=== PATIENT | female | born 1960 | race Caucasian/White ===

== ENCOUNTER 2016-06-27 18:24 | Inpatient (IN) ==
[2016-06-27 19:48] LABS: Basophils % 0.5 %; Eosinophils # 0.2 K/mcL (0.0-0.6); Eosinophils % 1.9 %; Hemoglobin 10.2 g/dL (11.5-15.4); Immature Granulocytes % 0.4 % (0-4); Lymphocytes # 1.9 K/mcL (0.6-4.6); Mean Corpuscular HGB Conc 31.9 g/dL (31.6-35.5); Mean Corpuscular Hemoglobin 27.4 pg (28.0-33.3); Mean Platelet Volume 10.8 fL (9.4-12.4); Monocytes # 0.5 K/mcL (0.0-1.3); Monocytes % 5.7 %; Neutrophils # 5.7 K/mcL (1.6-8.9); Platelet Count 213 K/mcL (140-400); Red Blood Count 3.72 M/mcL (3.82-4.97); Red Cell Distribution Width 14.1 % (11.5-14.5); Segmented Neutrophils % 68.5 %
[2016-06-27 20:03] LABS: Calcium 8.6 mg/dL (8.6-10.8); Potassium 4.7 mEq/L (3.5-4.5)
--- NOTE | 2016-06-27 20:03 | Emergency Department Note ---
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 usp insulin use status Qualified Code(s): E11.65 - Type 2 diabetes mellitus with hyperglycemia Disposition: Admitted As Inpatient General Adult [facility] - General Chief complaint: ED Shortness of Breath/Dyspnea Stated complaint: SOB Time Seen by Provider: 06/27/16 19:48 Source: patient Limitations: no limitations Nursing Notes Reviewed: Yes Vital Signs Reviewed: Yes - History of Present Illness Pain Scale: 8 - Related Data Home Medications Medication Instructions Recorded Confirmed Aspirin Enteric Coated [Aspirin EC] 81 mg PO DAILY 04/08/15 06/27/16 Furosemide [Lasix] 40 mg PO BID 04/08/15 06/27/16 Insulin Glargine,Hum.rec.anlog 40 unit SQ BID 04/08/15 06/27/16 [Lantus Solostar] Multivitamin [Multi-Day Vitamins] 1 tab PO DAILY 04/08/15 06/27/16 Simvastatin [Zocor] 40 mg PO DAILY 04/08/15 06/27/16 Omeprazole [PriLOSEC] 20 mg PO DAILY 12/06/15 06/27/16 Alprazolam [Xanax 0.5 MG Tablet] 0.5 mg PO TID PRN 06/27/16 Atenolol [Atenolol] 100 mg PO DAILY 06/27/16 06/27/16 Collagenase Oint [Santyl] 1 appl TP BID 06/27/16 06/27/16 Hydrochlorothiazide 25 mg PO DAILY 06/27/16 06/27/16 Insulin ASPART [Novolog Flexpen] 20 unit SQ TIDAC 06/27/16 06/27/16 Nystatin [Nyamyc] 1 appl TP BID 06/27/16 06/27/16 Tizanidine HCl 2 mg PO TID PRN 06/27/16 06/27/16 Allergies Allergy/AdvReac Type Severity Reaction Status Date / Time Amoxicillin [From Augmentin] Allergy Itching Verified 06/27/16 18:47 clavulanic acid Allergy Itching Verified 06/27/16 18:47 [From Augmentin] CAROLYN Inhibitors AdvReac Palpitation Verified 06/27/16 18:47 s fenofibrate [From Tricor] AdvReac Drowsy Verified 06/27/16 18:47 vancomycin AdvReac See Verified 06/27/16 22:42 Comments Past Medical History - Past Medical History Medical history: Reports: arthritis, asthma, CHF, CVA, diabetes, hyperlipidemia , hypertension, myocardial infarction, other Surgical history: Reports: , orthopedic, other Psychiatric history: Reports: anxiety, depression 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 SERVICE AIDE history: Reports: no 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 SERVICE AIDE history - Social History Smoking Status: Former smoker Smokeless Tobacco Status: No Alcohol use: Reports: none Drug use: Reports: none Physical Exam - General Limitations: no limitations General appearance: alert, in no apparent distress Course Vital Signs Temperature 98.9 F 06/27/16 18:44 Pulse Rate 80 06/27/16 18:44 Respiratory Rate 18 06/27/16 18:44 Blood Pressure 210/84 06/27/16 18:44 O2 Sat by Pulse Oximetry 97 06/27/16 18:44 Temperature 98.9 F 06/27/16 18:44 Pulse Rate 91 06/27/16 22:26 Respiratory Rate 16 06/27/16 23:11 Blood Pressure 181/78 06/27/16 23:11 O2 Sat by Pulse Oximetry 97 06/27/16 22:26 Oxygen Delivery Oxygen Delivery Room Air Medical Decision Making - MDM Narrative Medical decision making narrative: I examined this patient and my medical decision-making was reviewed with the RIP/MOULD OPERATOR/PA/Advanced Practice Nurse/Resident Physician. I agree with the documented findings, disposition and treatment plan as described except to the extent set forth below. Chest X-Ray 06/27/16 18:47 IMPRESSION: New small bilateral pleural effusions larger on the left. D/ / 06/27/2016 19:08:01 David Catherine MD / [facility] Interpreting Provider: David Catherine MD 2250: Patient's get a small fusion. Her BMP is elevated. She has no elevated troponin. With her diabetes her blood pressure blood sugar and noncompliance think it is best to go and bring her into the hospital as well as with her increasing renal function. She is in agreement with this plan. Spoke with hospitalist accepted. - Lab Data Result diagrams: 06/27/16 19:38 06/27/16 19:38 Lab Results 06/27/16 06/27/16 06/27/16 Range/Units 18:48 19:38 19:38 WBC 8.3 (4.3-11.1) K/mcL RBC 3.72 L (3.82-4.97) M/mcL Hgb 10.2 L (11.5-15.4) g/dL Hct 32.0 L (35.3-44.9) % MCV 86.0 (83.0-100.0) fL MCH 27.4 L (28.0-33.3) pg MCHC 31.9 (31.6-35.5) g/dL RDW 14.1 (11.5-14.5) % Plt Count 213 (140-400) K/mcL MPV 10.8 (9.4-12.4) fL Immature Gran % 0.4 (0-4) % Seg Neutrophils % 68.5 % Lymphocytes % 23.0 % Monocytes % 5.7 % Eosinophils % 1.9 % Basophils % 0.5 % Neutrophils # 5.7 (1.6-8.9) K/mcL Lymphocytes # 1.9 (0.6-4.6) K/mcL Monocytes # 0.5 (0.0-1.3) K/mcL Eosinophils # 0.2 (0.0-0.6) K/mcL Basophils # 0.0 (0.0-0.2) K/mcL Sodium 136 (136-145) mEq/L Potassium 4.7 H (3.5-4.5) mEq/L Chloride 106 (98-109) mEq/L Carbon Dioxide 21 (19-29) mEq/L BUN 25 H (7-20) mg/dL Creatinine 2.77 H (0.57-1.11) mg/dL Est GFR ( Amer) 21 L (> 60) Est GFR (Non-Af Amer) 18 L (> 60) BUN/Creatinine Ratio 9 (6-26) Glucose 344 H (70-99) mg/dL POC Glucose 338 H (58-89) Calculated Osmolality 300 (280-300) Calcium 8.6 (8.6-10.8) mg/dL Troponin I (0-0.03) ng/mL B-Natriuretic Peptide (0-100) pg/mL Urine Color (Yellow) Urine Clarity (Clear) Urine pH (5.0-8.0) pH Units Ur Specific [place] (1.010-1.025) Urine Protein (Neg-Trace) mg/dL Urine Glucose (UA) (Normal) mg/dL Urine Ketones (Negative) mg/dL Urine Blood (Negative) Urine Nitrite (Negative) Urine Bilirubin (Negative) Urine Urobilinogen (Normal) mg/dL Ur Leukocyte Esterase (Negative) Urine Microscopic RBC (0-3) per hpf Urine Microscopic WBC (0-3) per hpf Ur Squamous Epith Cells (None-Few) per lpf Urine Bacteria (None-Few) per hpf Hyaline Casts (None-Few) per lpf Ur Culture Indicated? (NO) 06/27/16 06/27/16 06/27/16 Range/Units 19:38 19:38 22:44 WBC (4.3-11.1) K/mcL RBC (3.82-4.97) M/mcL Hgb (11.5-15.4) g/dL Hct (35.3-44.9) % MCV (83.0-100.0) fL MCH (28.0-33.3) pg MCHC (31.6-35.5) g/dL RDW (11.5-14.5) % Plt Count (140-400) K/mcL MPV (9.4-12.4) fL Immature Gran % (0-4) % Seg Neutrophils % % Lymphocytes % % Monocytes % % Eosinophils % % Basophils % % Neutrophils # (1.6-8.9) K/mcL Lymphocytes # (0.6-4.6) K/mcL Monocytes # (0.0-1.3) K/mcL Eosinophils # (0.0-0.6) K/mcL Basophils # (0.0-0.2) K/mcL Sodium (136-145) mEq/L Potassium (3.5-4.5) mEq/L Chloride (98-109) mEq/L Carbon Dioxide (19-29) mEq/L BUN (7-20) mg/dL Creatinine (0.57-1.11) mg/dL Est GFR ( Amer) (> 60) Est GFR (Non-Af Amer) (> 60) BUN/Creatinine Ratio (6-26) Glucose (70-99) mg/dL POC Glucose (58-89) Calculated Osmolality (280-300) Calcium (8.6-10.8) mg/dL Troponin I 0.02 (0-0.03) ng/mL B-Natriuretic Peptide 1652 H (0-100) pg/mL Urine Color Yellow (Yellow) Urine Clarity Clear (Clear) Urine pH 7.0 (5.0-8.0) pH Units Ur Specific [place] 1.023 (1.010-1.025) Urine Protein >=1000 H (Neg-Trace) mg/dL Urine Glucose (UA) >=1000 H (Normal) mg/dL Urine Ketones Negative (Negative) mg/dL Urine Blood Trace H (Negative) Urine Nitrite Negative (Negative) Urine Bilirubin Negative (Negative) Urine Urobilinogen Normal (Normal) mg/dL Ur Leukocyte Esterase Negative (Negative) Urine Microscopic RBC 5-15 H (0-3) per hpf Urine Microscopic WBC 3-5 H (0-3) per hpf Ur Squamous Epith Cells Many H (None-Few) per lpf Urine Bacteria None Seen (None-Few) per hpf Hyaline Casts None Seen (None-Few) per lpf Ur Culture Indicated? NO (NO)
--- NOTE | 2016-06-27 20:38 | Emergency Department Note ---
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: unspecified long-term insulin use status Qualified Code(s): E11.65 - Type 2 diabetes mellitus with hyperglycemia Disposition: Admitted As Inpatient Referrals: Marcella Sylvester, MACHINE SPECIALIST [Primary Care Provider] - Forms: ED Satisfaction Letter Time of Disposition: 23:13 SOB HPI - General Chief Complaint: ED Shortness of Breath/Dyspnea Stated Complaint: SOB Time Seen by Provider: 06/27/16 19:48 Source: patient Limitations: no limitations Nursing Notes Reviewed: Yes Vital Signs Reviewed: Yes - History of Present Illness Patient is a 56-year-old female with history of CHF, end-stage renal disease stage III, poorly controlled diabetes presents with shortness of breath 3 days. She also complains of new right foot ulcerations on the bottom of her foot 4-5 days. Also has a history of prior foot infections with osteomyelitis in that foot. He sees Dr. Winn but has not informed him of the new foot infection. When asked why she has not gotten if it checked out, patient's reply was that she is stubborn. Patient also stated that she is took herself off her insulin therapy yesterday because she did not want to wait made her feel. - Related Data Home Medications Medication Instructions Recorded Confirmed Aspirin Enteric Coated [Aspirin EC] 81 mg PO DAILY 04/08/15 04/04/16 Furosemide [Lasix] 40 mg PO BID 04/08/15 04/04/16 Insulin Glargine,Hum.rec.anlog 40 unit SQ HS 04/08/15 04/04/16 [Lantus Solostar] Multivitamin [Multi-Day Vitamins] 1 tab PO DAILY 04/08/15 04/04/16 Simvastatin [Zocor] 40 mg PO DAILY 04/08/15 04/04/16 Omeprazole [PriLOSEC] 20 mg PO DAILY 12/06/15 04/04/16 Alprazolam [Xanax 0.5 MG Tablet] 0.5 mg PO TID PRN 06/27/16 Atenolol [Atenolol] 100 mg PO DAILY 06/27/16 06/27/16 Collagenase Oint [Santyl] 1 appl TP BID 06/27/16 06/27/16 Hydrochlorothiazide 25 mg PO DAILY 06/27/16 06/27/16 Insulin ASPART [Novolog Flexpen] 20 unit SQ TIDAC 06/27/16 06/27/16 Nystatin [Nyamyc] 1 appl TP BID 06/27/16 06/27/16 Tizanidine HCl 2 mg PO TID PRN 06/27/16 06/27/16 Allergies Allergy/AdvReac Type Severity Reaction Status Date / Time Amoxicillin [From Augmentin] Allergy Itching Verified 06/27/16 18:47 clavulanic acid Allergy Itching Verified 06/27/16 18:47 [From Augmentin] CAROLYN Inhibitors AdvReac Palpitation Verified 06/27/16 18:47 s fenofibrate [From Tricor] AdvReac Drowsy Verified 06/27/16 18:47 vancomycin AdvReac See Verified 06/27/16 22:42 Comments All systems ED: reviewed and negative except as stated. ENT ED: Reports: congestion Cardiovascular: Denies: chest pain, palpitations Respiratory: Reports: cough, dyspnea Gastrointestinal: Reports: nausea. Denies: abdominal pain Past Medical History - Past Medical History Attestation: Yes The following information was validated with the patient. 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 DEVELOPER history - Social History Smoking Status: Former smoker Smokeless Tobacco Status: No Alcohol use: Reports: none Drug use: Reports: none Physical Exam Vital Signs Temperature 98.9 F 06/27/16 18:44 Pulse Rate 80 06/27/16 18:44 Respiratory Rate 18 06/27/16 18:44 Blood Pressure 210/84 06/27/16 18:44 O2 Sat by Pulse Oximetry 97 06/27/16 18:44 Temperature 98.9 F 06/27/16 18:44 Pulse Rate 78 06/27/16 20:01 Respiratory Rate 18 06/27/16 20:01 Blood Pressure 203/101 06/27/16 20:01 O2 Sat by Pulse Oximetry 98 06/27/16 20:01 Oxygen Delivery Oxygen Delivery Room Air -General Appearance: Patient is a 56-year-old female is alert and oriented 3 and in no acute distress patient does not appear toxic nor does patient appear to have an increased work of breathing -Neurological exam: Cranial nerves II-12 intact, no focal deficits observed - Head Head exam: atraumatic, normocephalic, normal inspection - Eye Eye exam: Present: normal appearance, PERRL, EOMI, negative for scleral icterus negative for conjunctival pallor - ENT ENT exam: normal exam, normal oropharynx, mucous membranes moist - Neck Neck exam: Present: normal inspection, full ROM, trachea midline, negative JVD - Chest Chest inspection: Present: Patient has bilateral equal rise and fall of chest wall. Non-tender to palpation. - Respiratory Respiratory exam: Clear to auscultation bilaterally without wheezes rales or rhonchi Cardiovascular Cardiovascular exam: Present: regular rate, normal rhythm, normal heart sounds, without murmurs rubs or gallops. - Abdominal Exam Abdominal exam: Present: soft, nondistended, Non-Tender light and deep palpation in all quadrants. Bowel sounds normoactive throughout all 4 quadrants. Negative for hyper or hyperresonance. - Extremities Exam Extremities exam: Present: normal inspection, full ROM red erythematous right lower extremity just distal to knee and extending to foot. swollen and warm to palpation compareed to LLE. pulses intact bilat at radials and dorsal pedal. right foot pad 3x1.4, 2.4 x 1.2, 1.3 x2.1 ulceration in stage 2-3. - Back Exam Back exam: Present: normal inspection, full ROM. present: tenderness, CVA tenderness (R), CVA tenderness (L) - Psychiatric Psychiatric exam: Present: normal affect, normal mood - Skin Skin exam: Present: warm, dry, multiple sores on legs and fingers - General Limitations: no limitations General appearance: alert, in no apparent distress Course Course Narrative: seen and examined. labs were already drawn. urinalysis ordered. - Consultations Consultation #1: Dr. Shanks has accepted for admission at 2256hrs Time: 22:56 Vital Signs Temperature 98.9 F 06/27/16 18:44 Pulse Rate 80 06/27/16 18:44 Respiratory Rate 18 06/27/16 18:44 Blood Pressure 210/84 06/27/16 18:44 O2 Sat by Pulse Oximetry 97 06/27/16 18:44 Temperature 98.9 F 06/27/16 18:44 Pulse Rate 91 06/27/16 22:26 Respiratory Rate 18 06/27/16 22:26 Blood Pressure 189/90 06/27/16 22:26 O2 Sat by Pulse Oximetry 97 06/27/16 22:26 Oxygen Delivery Oxygen Delivery Room Air Shortness of Breath/Dyspnea - MDM Narrative Medical decision making narrative: 56-year-old female with history of CHF, end-stage renal disease stage III, poorly controlled diabetes presents with shortness of breath 3 days. Pt is concerning today for acute on chronic CHF exacerbation, pneumonia, PE, aortic aneurysm, Pyelonephritis, UTI, foot infection/inflammation, and diabetic foot ulcers. CBC: shows chronic anemia, BMP: hyperkalemia @ 4.7, Acute worsening of chronically elevated creatinine, and GLU of 344. GFR 18, Trop 0.02 BNP: 1652 Chest X-Ray 06/27/16 18:47 IMPRESSION: New small bilateral pleural effusions larger on the left. D/ / 06/27/2016 19:08:01 David Catherine MD / [email or web address] Interpreting Provider: David Catherine MD Pt will be admitted for acute exacerbation of congestive heart failure in the setting of poorly controlled diabetes with elevated blood sugars 344 and worsening kidney failure and elevation of creatinine and GFR of 18. Patient is administered 40 mg of Lasix and started on insulin subcutaneous sliding scale. Patient given Vicodin for pain and 100 mg of atenolol which she takes home for blood pressure. Dr. Shanks has accepted for admission - Medical Records Medical records reviewed: Yes I reviewed the patient's medical records. - Lab Data Lab results reviewed: Yes I reviewed the patient's lab results. Lab results narrative: Short CBC 06/27/16 Range/Units 19:38 WBC 8.3 (4.3-11.1) K/mcL Hgb 10.2 L (11.5-15.4) g/dL Hct 32.0 L (35.3-44.9) % Plt Count 213 (140-400) K/mcL Neutrophils # 5.7 (1.6-8.9) K/mcL BMP 06/27/16 Range/Units 19:38 Sodium 136 (136-145) mEq/L Potassium 4.7 H (3.5-4.5) mEq/L Chloride 106 (98-109) mEq/L Carbon Dioxide 21 (19-29) mEq/L BUN 25 H (7-20) mg/dL Creatinine 2.77 H (0.57-1.11) mg/dL Glucose 344 H (70-99) mg/dL Calcium 8.6 (8.6-10.8) mg/dL Cardiac Enzymes 06/27/16 Range/Units 19:38 Troponin I 0.02 (0-0.03) ng/mL Urine 06/27/16 Range/Units 22:44 Urine Color Yellow (Yellow) Urine Clarity Clear (Clear) Urine pH 7.0 (5.0-8.0) pH Units Ur Specific [place] 1.023 (1.010-1.025) Urine Protein >=1000 H (Neg-Trace) mg/dL Urine Glucose (UA) >=1000 H (Normal) mg/dL Result diagrams: 06/27/16 19:38 06/27/16 19:38 Lab Results 06/27/16 06/27/16 06/27/16 Range/Units 18:48 19:38 19:38 WBC 8.3 (4.3-11.1) K/mcL RBC 3.72 L (3.82-4.97) M/mcL Hgb 10.2 L (11.5-15.4) g/dL Hct 32.0 L (35.3-44.9) % MCV 86.0 (83.0-100.0) fL MCH 27.4 L (28.0-33.3) pg MCHC 31.9 (31.6-35.5) g/dL RDW 14.1 (11.5-14.5) % Plt Count 213 (140-400) K/mcL MPV 10.8 (9.4-12.4) fL Immature Gran % 0.4 (0-4) % Seg Neutrophils % 68.5 % Lymphocytes % 23.0 % Monocytes % 5.7 % Eosinophils % 1.9 % Basophils % 0.5 % Neutrophils # 5.7 (1.6-8.9) K/mcL Lymphocytes # 1.9 (0.6-4.6) K/mcL Monocytes # 0.5 (0.0-1.3) K/mcL Eosinophils # 0.2 (0.0-0.6) K/mcL Basophils # 0.0 (0.0-0.2) K/mcL Sodium 136 (136-145) mEq/L Potassium 4.7 H (3.5-4.5) mEq/L Chloride 106 (98-109) mEq/L Carbon Dioxide 21 (19-29) mEq/L BUN 25 H (7-20) mg/dL Creatinine 2.77 H (0.57-1.11) mg/dL Est GFR ( Amer) 21 L (> 60) Est GFR (Non-Af Amer) 18 L (> 60) BUN/Creatinine Ratio 9 (6-26) Glucose 344 H (70-99) mg/dL POC Glucose 338 H (58-89) Calculated Osmolality 300 (280-300) Calcium 8.6 (8.6-10.8) mg/dL Troponin I (0-0.03) ng/mL B-Natriuretic Peptide (0-100) pg/mL 06/27/16 06/27/16 Range/Units 19:38 19:38 WBC (4.3-11.1) K/mcL RBC (3.82-4.97) M/mcL Hgb (11.5-15.4) g/dL Hct (35.3-44.9) % MCV (83.0-100.0) fL MCH (28.0-33.3) pg MCHC (31.6-35.5) g/dL RDW (11.5-14.5) % Plt Count (140-400) K/mcL MPV (9.4-12.4) fL Immature Gran % (0-4) % Seg Neutrophils % % Lymphocytes % % Monocytes % % Eosinophils % % Basophils % % Neutrophils # (1.6-8.9) K/mcL Lymphocytes # (0.6-4.6) K/mcL Monocytes # (0.0-1.3) K/mcL Eosinophils # (0.0-0.6) K/mcL Basophils # (0.0-0.2) K/mcL Sodium (136-145) mEq/L Potassium (3.5-4.5) mEq/L Chloride (98-109) mEq/L Carbon Dioxide (19-29) mEq/L BUN (7-20) mg/dL Creatinine (0.57-1.11) mg/dL Est GFR ( Amer) (> 60) Est GFR (Non-Af Amer) (> 60) BUN/Creatinine Ratio (6-26) Glucose (70-99) mg/dL POC Glucose (58-89) Calculated Osmolality (280-300) Calcium (8.6-10.8) mg/dL Troponin I 0.02 (0-0.03) ng/mL B-Natriuretic Peptide 1652 H (0-100) pg/mL - Radiology Data Radiology results reviewed: Yes I reviewed the patient's radiology results. Chest X-Ray 06/27/16 18:47 IMPRESSION: New small bilateral pleural effusions larger on the left. D/ / 06/27/2016 19:08:01 David Catherine MD / [facility] Interpreting Provider: David Catherine MD - EKG Data EKG attestation: Yes I reviewed and interpreted this EKG. EKG results narrative: He taken 06/27/2016 at 1959 hrs. shows a sinus rhythm with a ventricular rate of 79 bpm with no ischemic signs on EKG in any leads no ST elevations or depressions and a leads. EKG is compared to previous EKG dated 08/29/2013 shows a sinus rhythm and looks in equivalent to Today's EKG
[2016-06-27] MEDS ORDERED: Ondansetron ODT 4 MG TAB.RAPDIS SL ONE (20:51)
[2016-06-27] MEDS ORDERED: Ipratropium/Albuterol Neb 3 ML IH ONE (21:19)
[2016-06-27] MEDS ORDERED: *HR* Dextrose 50 % in Water (Syg) 50 ML SYRINGE IVP PRN (22:16)
[2016-06-27] MEDS ORDERED: D5% in Water 1,000 ML IV PRN (22:16)
[2016-06-27] MEDS ORDERED: Dextrose Gel 15 GM PO PRN ×2 (22:16)
[2016-06-27] MEDS ORDERED: Insulin DETEMIR 100 UNIT/ML X5UNITS SQ SCH (22:30)
[2016-06-27] MEDS ORDERED: Furosemide 40 MG/4 ML VIAL IVP ONE (22:30)
[2016-06-27] MEDS ORDERED: *HR* HYDROcodone/Acet 5/325 mg TABLET PO ONE (22:41)
[2016-06-27 22:53] LABS: Bilirubin,Urine Negative (Negative); Blood,Urine Trace (Negative); Clarity,Urine Clear (Clear); Color,Urine Yellow (Yellow); Glucose,Urine (UA) >=1000 mg/dL (Normal); Ketones,Urine Negative (Negative); Leukocyte Esterase,Urine Negative (Negative); Nitrite,Urine Negative (Negative); Protein,Urine >=1000 mg/dL (Neg-Trace); Specific Gravity,Urine 1.023 (1.010-1.025); Urobilinogen,Urine Normal (Normal)
[2016-06-27 22:55] LABS: Bacteria,Urine None Seen per hpf (None-Few); Hyaline Casts,Urine None Seen per lpf (None-Few); Squamous Epithelial Cell,Urine Many per lpf (None-Few)
--- NOTE | 2016-06-28 00:32 | Internal Med History&Physical ---
Date of Encounter: 06/28/16 Time of Encounter: 00:29 Assessment and Plan (1) Acute bronchitis Current visit: Yes Status: Acute I will keep start the patient on azithromycin because she is a smoker. Qualifiers: Qualified Code(s): J20.9 - Acute bronchitis, unspecified (2) Acute exacerbation of congestive heart failure Current visit: Yes Status: Acute This is the main cause for the presentation. I will start the patient only 60 mg intravenous twice a day. On discharge she will need to Lasix dose to be increased. Also encourage compliance to medications as she is noncompliant. will monitor intake and urine output. Serial cardiac markers. Qualifiers: Congestive heart failure type: systolic Qualified Code(s): I50.23 - Acute on chronic systolic (congestive) heart failure (3) Acute on chronic kidney failure Current visit: Yes Status: Acute Close follow-up with Nephrology as an outpatient (4) Hyperglycemia due to type 2 diabetes mellitus Current visit: Yes Status: Acute She is noncompliant with her insulin. Her Hb1AC 2 month ago was 14. Restart insulin in a smaller dose to see response because of worsening kidney functions Qualifiers: Diabetes mellitus terminal operator insulin use: unspecified terminal operator insulin use status Qualified Code(s): E11.65 - Type 2 diabetes mellitus with hyperglycemia (5) Diabetic foot ulcer Current visit: No Status: Acute No active signs of infection. Qualifiers: Diabetes mellitus type: type 2 Laterality: right Qualified Code(s): E11.621 - Type 2 diabetes mellitus with foot ulcer; L97.519 - Non-pressure chronic ulcer of other part of right foot with unspecified severity Internal Medicine - H&P: HPI Chief complaint: SOB History of present illness: Ms. Frederick is a 56 year old female with multiple medical problems including chronic kidney disease stage for that has been worsening over the past year presents to the emergency room today with the main complaining of shortness of breath. For the past 4 days patient has been having progressive shortness of breath associated with orthopnea or just asleep on for pillows and bilateral lower extremity swelling. Patient has gained 20 pounds in the past month. Patient is taking Lasix 40 mg twice a day however she has noticed that her response to diuresis has significantly decreased. Patient is noncompliant with her medications also. Patient mentioned also that she has been having productive cough of whitish sputum with increased sputum production compared to her baseline. She started smoking a year ago 1 pack will blast her 4 days. She has chest pain only when she coughs or takes a deep breath. She denies any known history of coronary artery disease. Past Med Surg Social Fam HX - Past Medical History Medical history: arthritis, asthma, CHF, CVA, diabetes, hyperlipidemia, hypertension, myocardial infarction, other Psychiatric history: anxiety, depression - Past Surgical History Surgical History: , orthopedic, other - Social History Smoking Status: Former smoker Smokeless Tobacco Status: No Alcohol use: none Drug use: none - Family History Mother Living Status: Hx Family Cardiac Disorders: Yes Hx Family Respiratory Disorders: Yes (Asthma) Hx Family Cancer: Yes (Lung Cancer(mother)) Hx Family GI Disorders: No Hx Family Endocrine Disorder: No Hx Family Neuromuscular Disorders: No Hx Family Neurologic Disorders: No Hx Family HEENT Disorders: No Hx Family Autoimmune Disorders: No Father Living Status: Hx Family Cardiac Disorders: Yes Hx Family Respiratory Disorders: Yes (lung cancer) Hx Family Cancer: Yes (lung cancer) Hx Family Endocrine Disorder: Yes (diabetes,) Internal Medicine - H&P: Meds Aspirin Enteric Coated [Aspirin EC] 81 mg PO DAILY 04/08/15 [History] Furosemide [Lasix] 40 mg PO BID 04/08/15 [History] Insulin Glargine,Hum.rec.anlog [Lantus Solostar] 40 unit SQ BID 04/08/15 [ History] Multivitamin [Multi-Day Vitamins] 1 tab PO DAILY 04/08/15 [History] Simvastatin [Zocor] 40 mg PO DAILY 04/08/15 [History] Omeprazole [PriLOSEC] 20 mg PO DAILY 12/06/15 [History] Alprazolam [Xanax 0.5 MG Tablet] 0.5 mg PO TID PRN 06/27/16 [History] Atenolol [Atenolol] 100 mg PO DAILY 06/27/16 [History] Collagenase Oint [Santyl] 1 appl TP BID 06/27/16 [History] Hydrochlorothiazide 25 mg PO DAILY 06/27/16 [History] Insulin ASPART [Novolog Flexpen] 20 unit SQ TIDAC 06/27/16 [History] Nystatin [Nyamyc] 1 appl TP BID 02/08/17 [History] Tizanidine HCl 2 mg PO TID PRN 06/27/16 [History] Allergies Amoxicillin [From Augmentin] Allergy (Verified 06/27/16 18:47) Itching clavulanic acid [From Augmentin] Allergy (Verified 06/27/16 18:47) Itching CAROLYN Inhibitors Adverse Reaction (Verified 06/27/16 18:47) Palpitations fenofibrate [From Tricor] Adverse Reaction (Verified 06/27/16 18:47) Drowsy vancomycin Adverse Reaction (Verified 06/27/16 22:42) See Comments "made my chest feel real funny" All Systems PM: A 10-system review of systems was performed and is negative for pertinent findings except as documented above in the HPI. Review of systems: 10 point review of systems is negative except for HPI - Constitutional Vitals: Temp Pulse Resp BP Pulse Ox 98.9 F 91 16 181/78 97 06/27/16 18:44 06/27/16 22:26 06/27/16 23:11 06/27/16 23:11 06/27/16 22:26 Exam: Gen.: patient is alert oriented not in distress. Cardiac: Normal S1 S2 no additional sounds or murmurs chest: few rales in the bases. No bronchial breathing abdomen soft nontender nondistended normal bowel sounds lower extremity: 2+ swelling neuro no focal deficit Internal Med - H&P Results - Labs CBC & Chem 7: 06/27/16 19:38 06/27/16 19:38
[2016-06-28] MEDS ORDERED: Calcium Gluconate 1,000 MG in D5% in Water 100 ML IVPB ONE (00:39)
[2016-06-28] MEDS ORDERED: Furosemide 100 MG/10 ML VIAL IVP SCH ×2 (02:00→09:11)
[2016-06-28] MEDS ORDERED: Furosemide 60 MG in 0.9 % Sodium Chloride 50 ML IVPB SCH (02:00)
[2016-06-28] MEDS: Azithromycin 500 MG in D5% in Water 250 ML IVPB SCH ×2 (02:32→23:54)
[2016-06-28 04:17] LABS: Basophils % 0.5 %; Eosinophils # 0.2 K/mcL (0.0-0.6); Eosinophils % 2.5 %; Hematocrit 27.7 % (35.3-44.9); Hemoglobin 8.8 g/dL (11.5-15.4); Immature Granulocytes % 0.3 % (0-4); Lymphocytes # 1.5 K/mcL (0.6-4.6); Mean Corpuscular HGB Conc 31.8 g/dL (31.6-35.5); Mean Corpuscular Hemoglobin 27.7 pg (28.0-33.3); Mean Corpuscular Volume 87.1 fL (83.0-100.0); Mean Platelet Volume 11.4 fL (9.4-12.4); Monocytes # 0.4 K/mcL (0.0-1.3); Monocytes % 7.3 %; Neutrophils # 3.9 K/mcL (1.6-8.9); Platelet Count 164 K/mcL (140-400); Red Blood Count 3.18 M/mcL (3.82-4.97); Red Cell Distribution Width 14.1 % (11.5-14.5); Segmented Neutrophils % 64.4 %
[2016-06-28 04:28] LABS: Hemoglobin A1C 12.2 %
[2016-06-28 04:44] LABS: Calcium 8.3 mg/dL (8.6-10.8); Magnesium 1.5 mg/dL (1.6-2.6)
[2016-06-28] MEDS: *HR* Heparin 5,000 UNIT/ML VIAL SQ SCH ×3 (06:21→23:55)
[2016-06-28] MEDS ORDERED: Insulin LISPRO 300 UNITS/3 ML VIAL SQ SCH (08:00)
[2016-06-28] MEDS: Insulin LISPRO 300 UNITS/3 ML VIAL SQ SCH ×7 (08:37→21:30)
[2016-06-28] MEDS: Famotidine 20 MG TABLET PO SCH (08:39)
[2016-06-28] MEDS: Aspirin Enteric Coated 81 MG Tablet PO SCH (08:39)
[2016-06-28] MEDS: Acetaminophen 325 MG TABLET PO PRN (09:13)
--- NOTE | 2016-06-28 13:17 | Nephrology Consult Note ---
Date of Encounter: 06/28/16 Time of Encounter: 13:16 Assessment and Plan (1) Acute kidney injury superimposed on chronic kidney disease Current Visit: Yes Status: Acute Nonoliguric acute kidney injury on chronic kidney disease. It appears that over the past year, patient's GFR has slowly worsened from stage III to now a GFR of 17. This is likely multifactorial in the setting of uncontrolled diabetes, diuretic use, and multiple episodes of antibiotic use for diabetic foot wound. She did present to the emergency department in congestive heart failure exacerbation and received IV Lasix. We will hold on any continue diuretics at this time as the patient's renal function has decreased and her volume status appears slightly improved. We will address daily her need for diuretic. We will continue RENETTA/CKD workup with a renal ultrasound, ANCA, ONEAL, complement, and uric acid. Continue a renal protective strategy and dose any medications accordingly. Her hydrochlorothiazide has been held at this time. (2) Hyperkalemia Current Visit: Yes Status: Acute In the setting of acute kidney injury. Continue to monitor closely. Will add a renal diet. (3) Acute exacerbation of congestive heart failure Current Visit: Yes Status: Acute Patient presented to the emergency department complaining of progressive shortness of breath, orthopnea, and paroxysmal nocturnal dyspnea. Her chest x- ray revealed small bilateral pleural effusions and her BNP was elevated at 1652. I do not see a transthoracic echocardiogram on record, but the admitting hospitalist has ordered one. She was treated with IV diuretics on admission, which have been held at this time due to her rising serum creatinine. We will address on a daily basis her need for diuretics. Qualifiers: Congestive heart failure type: unspecified congestive heart failure type Qualified Code(s): I50.9 - Heart failure, unspecified (4) Uncontrolled diabetes mellitus Current Visit: Yes Status: Chronic Management per primary team. Likely the source of the patient's chronic kidney disease. Hemoglobin A1c 12.2. 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 Frederick is a 56-year-old female with a past medical history of chronic kidney disease stage III, uncontrolled diabetes mellitus, hypertension, congestive heart failure, and diabetic foot wound who presented to the emergency department complaining of progressive shortness of breath over the past several days. She admits to orthopnea, exertional dyspnea, and paroxysmal nocturnal dyspnea. She states she has had a significant weight gain in the past month and feels that her home dose of Lasix is no longer working. Workup in the emergency department revealed a chest x-ray with small bilateral pleural effusions and an elevated BNP of 1652. She was admitted to the hospital for acute congestive heart failure exacerbation and placed on IV diuretics. It appears that over the past year patient has had a slow decline in her renal function, with current GFR of 17. Nephrology has been consulted for her acute kidney injury on chronic kidney disease in the setting of volume overload and congestive heart failure exacerbation. On examination, patient states that she is feeling a little better than yesterday. She continues to have a mild cough but denies fevers or chills, chest pain, or increased shortness of breath. She is unsure if she has been seen by a finance business partner on her admissions to [place]. She admits that her glucose has been uncontrolled for quite some time. She also states that she has had multiple rounds of antibiotics for a right diabetic foot wound , even requiring outpatient PICC line placement for antibiotics. She has no other complaints at this time. Past Med Surg Social Fam HX - Past Medical History Medical history: arthritis, asthma, CHF, CVA, diabetes, hyperlipidemia, hypertension, myocardial infarction, renal disease, other (Diabetic foot wound) Psychiatric history: anxiety, depression - Past Surgical History Surgical History: , orthopedic, other - Social History Smoking Status: Current every day smoker Smokeless Tobacco Status: No Alcohol use: none Drug use: none - Family History Mother Living Status: Hx Family Cardiac Disorders: Yes Hx Family Respiratory Disorders: Yes (Asthma) Hx Family Cancer: Yes (Lung Cancer(mother)) Hx Family GI Disorders: No Hx Family Endocrine Disorder: No Hx Family Neuromuscular Disorders: No Hx Family Neurologic Disorders: No Hx Family HEENT Disorders: No Hx Family Autoimmune Disorders: No Father Living Status: Hx Family Cardiac Disorders: Yes Hx Family Respiratory Disorders: Yes (lung cancer) Hx Family Cancer: Yes (lung cancer) Hx Family Endocrine Disorder: Yes (diabetes,) Medications and Allergies Aspirin Enteric Coated [Aspirin EC] 81 mg PO DAILY 04/08/15 [History] Furosemide [Lasix] 40 mg PO BID 04/08/15 [History] Insulin Glargine,Hum.rec.anlog [Lantus Solostar] 40 unit SQ BID 04/08/15 [ History] Multivitamin [Multi-Day Vitamins] 1 tab PO DAILY 04/08/15 [History] Simvastatin [Zocor] 40 mg PO DAILY 04/08/15 [History] Omeprazole [PriLOSEC] 20 mg PO DAILY 12/06/15 [History] Alprazolam [Xanax 0.5 MG Tablet] 0.5 mg PO TID PRN 06/27/16 [History] Atenolol [Atenolol] 100 mg PO DAILY 06/27/16 [History] Collagenase Oint [Santyl] 1 appl TP BID 06/27/16 [History] Hydrochlorothiazide 25 mg PO DAILY 06/27/16 [History] Insulin ASPART [Novolog Flexpen] 20 unit SQ TIDAC 06/27/16 [History] Nystatin [Nyamyc] 1 appl TP BID 06/27/16 [History] Tizanidine HCl 2 mg PO TID PRN 06/27/16 [History] Allergies Amoxicillin [From Augmentin] Allergy (Verified 06/27/16 18:47) Itching clavulanic acid [From Augmentin] Allergy (Verified 06/27/16 18:47) Itching CAROLYN Inhibitors Adverse Reaction (Verified 06/27/16 18:47) Palpitations fenofibrate [From Tricor] Adverse Reaction (Verified 06/27/16 18:47) Drowsy vancomycin Adverse Reaction (Verified 06/27/16 22:42) See Comments "made my chest feel real funny" Review of Systems All Systems: reviewed and no additional remarkable complaints except as stated Exam - Vital Signs Vital signs: Initial Vital Signs Temp Pulse Resp BP Pulse Ox 98.9 F 80 18 210/84 97 06/27/16 18:44 06/27/16 18:44 06/27/16 18:44 06/27/16 18:44 06/27/16 18:44 Vital Signs - Last 8 Hours Temp Pulse Resp BP Pulse Ox 06/28/16 12:03 98.4 F 73 19 164/78 95 06/28/16 07:55 97.6 F 75 18 158/81 94 L Intake and Output 06/27/16 06/28/16 06/28/16 23:59 07:59 15:59 Intake Total 110 / 110 400 / 400 Output Total 1800 / 1800 1200 / 1200 Balance -1690 / -1690 -800 / -800 Intake: IV Fluids 110 / 110 250 / 250 Zithromax 500 mg In 250 / 250 Dextrose 5% 250 ML @ 252 mls/hr IVPB Q24H [facility] Rx#: [id number] Calcium Gluconate 1,000 110 / 110 MG In Dextrose 5% 100 ML @ 220 mls/hr IVPB ONCE ONE Rx#:[id number] Oral 150 / 150 Output: Urine 1800 / 1800 1200 / 1200 Other: Meal Breakfast Percent of Meal Consumed 90% # Voids 1 3 Weight 124.241 kg Blood Glucose* 248 158 Patient Weight 06/28/16 23:59 Weight 124.241 kg - General Appearance Exam: General: Patient is alert and in no acute distress HEENT: Normocephalic atraumatic, pupils are equal round and reactive to light and accommodation, tympanic membrane is intact, nares is patent, mucous membranes moist, throat is not injected, no JVD, trachea is midline Cardiovascular: Regular rate and rhythm without murmur Respiratory: Lungs are diminished bilaterally, clear to auscultation bilaterally , no wheezing, rhonchi, rales Abdomen: Soft, nontender, obese, positive bowel sounds in all 4 quadrants Extremities: Warm, dry, 2+ lower extremity pitting edema, large healing wound to the plantar aspect of the right foot without surrounding erythema Neuro: A&Ox3, speech is appropriate, cranial nerves II through XII are normal as tested Results - Lab Results 06/28/16 03:21 06/28/16 03:21 Most recent lab results Calcium 8.3 mg/dL (8.6-10.8) L 06/28/16 03:21 Magnesium 1.5 mg/dL (1.6-2.6) L 06/28/16 03:21 Consult Discharge Plan - Plan Referrals: Marcella Sylvester CNP [Primary Care Provider] -
--- NOTE | 2016-06-28 15:22 | Event Note ---
Date of Encounter: 06/28/16 Time of Encounter: 10:00 Patient seen and examined. On examination, patient asleep and awakened easily to voice. She is alert and oriented 3. Patient still endorsing shortness of breath above her norm. Patient stating she is tired. Patient stating she has pain all over but states this is normal for her. Patient is also endorsing a mild headache. She is also endorsing a productive cough. On examination, respirations even and easy with good aeration throughout and coarse wheezing present. Anemia noted, currently at the low end of her normal, will trend. Hyperkalemia noted as well as acute kidney injury superimposed on chronic kidney disease stage IV. Urinalysis unremarkable. BNP markedly elevated at 1600. Patient stating she was just seen at [facility] in April at which time she had an echocardiogram. I have received those records. Patient was seen at [facility] on 05/10/16 with a chief complaint of persistent cough and dyspnea. Patient was also noted by [facility] staff to be noncompliant with her Lasix and her antihypertensive medications. Per outside hospital, echocardiogram consistent with combined systolic and diastolic heart failure with an ejection fraction of 30-35%. In review of her chart, patient does not appear to be compliant with a fluid or sodium restricted diet or with her diabetes medications. A1c 12.2%. Patient is currently on room air and tolerating it well. Regarding her smoking, patient stating that she only started smoking approximately 1 year ago secondary to uncontrolled depression and states she used to smoke 1 pack every 3-4 days but states she stopped smoking 2 days ago. Given that she has stage IV renal disease with acute kidney injury superimposed, nephrology brought on board. Diuretics held at this time, will trend renal functioning. OT and PT consultations pending. ITS Impressions Chest X-Ray 06/27/16 18:47 IMPRESSION: New small bilateral pleural effusions larger on the left. D/ / 06/27/2016 19:08:01 David Catherine MD / timothy Interpreting Provider: David Catherine MD Echocardiogram from [facility] summary on 05/11/16: Technically very difficult and very limited study. The left ventricle was enlarged and diffusely hypokinetic; endocardial definition was very suboptimal and an ejection fraction is very roughly estimated at 30-35%. Moderate left atrial enlargement. Mild mitral regurgitation. Aortic valve thickening without stenosis. Probably abnormal diastolic function. Retroperitoneal ultrasound from [facility] on 05/10/16 impression: No significant abnormalities in the kidneys. No hydronephrosis, mass or cysts noted.
--- NOTE | 2016-06-28 16:13 | Electrocardiograph Report ---
[place] [address] Test Date: 2016-06-27 Pat Name: Maria Del Carmen Frederick Department: 104 Room: 3B13 Gender: F Clinical Sociologist: : 1960 Requested By: Kevin Matson Order Number: [id number] Reading MD: Tariq Hall Measurements Intervals [place] Rate: 79 P: 25 LA: 141 QRS: 16 QRSD: 83 T: 36 QT: 391 QTc: 426 Interpretive Statements SINUS RHYTHM NONSPECIFIC T-WAVE ABNORMALITY Electronically Signed On 06-28-2016 16:11:27 EST by Tariq Hall
--- NOTE | 2016-06-28 20:11 | Venous Imaging Report ---
LE Venous Duplex Patient Name:Maria Del Carmen Frederick Order Number:[id number] Procedure Date:06/28/2016 Date:1960Age:56 yrs Gender:Female Location:[facility] Room #: 3B13 [place] Supervisor:Alia Corrales RVT Referring MD:Hunter Zhao MD clinical systems educator:Marcella Sylvester MANAGER CLINICAL APPLICATIONS Reading MD:Myron Faria MD , FACS Primary Indications:R/O DVT Secondary Indications: Impressions: Bilateral lower extremity: normal superficial and deep exam. Recommendations: After imaging the patient returned to their room. Results to [place] 06/28/16 @ 1425. Test completed on 06/28/2016 at 1:30:00 pm. Findings Venous Duplex Results: Right: Venous imaging of the lower extremity reveals full patency and normal vessel compressibility of the right common femoral, right superficial femoral, right popliteal, right posterior tibial, right peroneal, right great saphenous and right lesser saphenous. Doppler signals in the evaluated veins were normal. Left: Venous imaging of the lower extremity reveals full patency and normal vessel compressibility of the left distal iliac, left common femoral, left superficial femoral, left popliteal, left posterior tibial, left peroneal, left great saphenous and left lesser saphenous. Doppler signals in the evaluated veins were normal. Prior Study: No change compared to prior study dated: 12/10/2015. Lower Extremity Venous Duplex Side Vein Compress Spontaneous Flow Augment Diameter (cm) Depth (cm) Right Common Femoral Normal Yes Phasic Yes Right Superficial Femoral Normal Yes Phasic Yes Right Popliteal Normal Yes Phasic Yes Right Posterior Tibial Normal Yes Phasic Yes Right Peroneal Normal Yes Phasic Yes Right Great Saphenous Normal Yes Phasic Yes Right Lesser Saphenous Normal Yes Phasic Yes Left Distal Iliac Normal Yes Phasic Yes Left Common Femoral Normal Yes Phasic Yes Left Superficial Femoral Normal Yes Phasic Yes Left Popliteal Normal Yes Phasic Yes Left Posterior Tibial Normal Yes Phasic Yes Left Peroneal Normal Yes Phasic Yes Left Great Saphenous Normal Yes Phasic Yes Left Lesser Saphenous Normal Yes Phasic Yes Updated by Myron Faria MD, FACS on 06/28/2016 8:06:01 PM Myron Faria MD electronically signed on 06/28/2016 8:06:35 PM with status of Final
[2016-06-28] MEDS: Insulin DETEMIR 100 UNIT/ML X5UNITS SQ SCH (21:33)
[2016-06-28] MEDS: Albuterol 2.5 MG/3 ML NEBULIZER IH PRN (21:37)
[2016-06-29 04:13] LABS: Basophils % 0.4 %; Eosinophils # 0.1 K/mcL (0.0-0.6); Eosinophils % 1.1 %; Hematocrit 29.2 % (35.3-44.9); Immature Granulocytes % 0.2 % (0-4); Lymphocytes # 1.5 K/mcL (0.6-4.6); Lymphocytes % 28.2 %; Mean Corpuscular HGB Conc 30.8 g/dL (31.6-35.5); Mean Corpuscular Hemoglobin 26.9 pg (28.0-33.3); Mean Corpuscular Volume 87.2 fL (83.0-100.0); Mean Platelet Volume 10.9 fL (9.4-12.4); Monocytes # 0.4 K/mcL (0.0-1.3); Monocytes % 7.9 %; Neutrophils # 3.3 K/mcL (1.6-8.9); Platelet Count 173 K/mcL (140-400); Red Blood Count 3.35 M/mcL (3.82-4.97); Red Cell Distribution Width 14.2 % (11.5-14.5); Segmented Neutrophils % 62.2 %
[2016-06-29 04:32] LABS: Calcium 8.3 mg/dL (8.6-10.8); Magnesium 1.5 mg/dL (1.6-2.6); Potassium 4.8 mEq/L (3.5-4.5)
[2016-06-29] MEDS: *HR* Heparin 5,000 UNIT/ML VIAL SQ SCH ×2 (06:03→14:32)
[2016-06-29] MEDS: Insulin LISPRO 300 UNITS/3 ML VIAL SQ SCH ×7 (08:31→22:18)
[2016-06-29] MEDS: Famotidine 20 MG TABLET PO SCH (08:33)
[2016-06-29] MEDS: Aspirin Enteric Coated 81 MG Tablet PO SCH (08:33)
[2016-06-29] MEDS: Acetaminophen 325 MG TABLET PO PRN (08:37)
[2016-06-29] MEDS: Albuterol 2.5 MG/3 ML NEBULIZER IH PRN ×2 (10:40→16:35)
[2016-06-29] MEDS ORDERED: amLODIPine 5 MG TABLET PO SCH (13:15)
--- NOTE | 2016-06-29 13:42 | Internal Med Progress Note ---
Date of Encounter: 06/29/16 Time of Encounter: 08:45 - Assessment and plan (1) Acute exacerbation of congestive heart failure Current Visit: Yes Status: Acute Assessment and plan: Patient still endorsing shortness of breath above her norm. She is also endorsing a productive cough. On examination, respirations even and easy with good aeration throughout and coarse wheezing present. The patient endorsing 4- 5 pillow orthopnea at home. She is not on oxygen at home, currently on 2 L. BNP trending down. Per outside hospital, echocardiogram consistent with combined systolic and diastolic heart failure with an ejection fraction of 30-35 %. In review of her chart, patient does not appear to be compliant with a fluid or sodium restricted diet or with her diabetes medications. A1c 12.2%. Given that she has stage IV renal disease with acute kidney injury superimposed , nephrology brought on board. Diuretics held at this time, will trend renal functioning. On examination, patient stating the edema that has been present in her legs over the past several weeks has resolved. She remains with 1+ pitting edema bilaterally. Patient states this is the best that her legs looked in several months. Renal functioning remains unchanged, will add very gentle IV fluid rehydration 1 bag. Continuing to hold diuretics. OT and PT have surmised she has no needs. Attempted to educate the patient on fluid and sodium restricted diets however she was not receptive. We will continue to attempt education. Patient not fit for discharge today given her acute kidney injury superimposed on chronic kidney disease stage IV. We will continue to trend. Patient is aware that she may need dialysis in the near future. Flat affect noted when we broach the topics of controlling her sugars and her diet. ITS Impressions Chest X-Ray 06/27/16 18:47 IMPRESSION: New small bilateral pleural effusions larger on the left. D/ / 06/27/2016 19:08:01 David Catherine MD / timothy Interpreting Provider: David Catherine MD Echocardiogram from [facility] on 05/11/16: Technically very difficult and very limited study. The left ventricle was enlarged and diffusely hypokinetic; endocardial definition was very suboptimal and an ejection fraction is very roughly estimated at 30-35%. Moderate left atrial enlargement. Mild mitral regurgitation. Aortic valve thickening without stenosis. Probably abnormal diastolic function. Retroperitoneal ultrasound from [facility] on 05/10/16 impression: No significant abnormalities in the kidneys. No hydronephrosis, mass or cysts noted. Qualifiers: Congestive heart failure type: combined Qualified Code(s): I50.43 - Acute on chronic combined systolic (congestive) and diastolic (congestive) heart failure (2) Acute kidney injury superimposed on chronic kidney disease Current Visit: Yes Status: Acute Assessment and plan: Stable from yesterday without improvement or deterioration. Will add very gentle IV fluids 1 bag. In review of her chart, chronic kidney disease has slowly progressed from stage III to stage IV over the past several months. Nephrology on board, appreciate their recommendations. (3) Acute respiratory failure Current Visit: Yes Status: Acute Qualifiers: Respiratory failure complication: unspecified whether with hypoxia or hypercapnia Qualified Code(s): J96.00 - Acute respiratory failure, unspecified whether with hypoxia or hypercapnia (4) Hyperkalemia Current Visit: Yes Status: Acute Assessment and plan: stable, liekly 2/2 RENETTA on CKD4. Continue renal diet. Nephrology onboard. (5) Anemia Current Visit: No Status: Chronic Assessment and plan: Chronic and stable. >Likely ACD, but no recent anemia workup, will check iron, B12, folate tomorrow. We will continue to trend. Qualifiers: Anemia type: other cause Other causes of anemia: other cause, not classified Qualified Code(s): D64.89 - Other specified anemias (6) DVT prophylaxis Current Visit: No Status: Acute Assessment and plan: Subcutaneous heparin (7) Foot ulcer due to secondary DM Current Visit: No Status: Chronic Assessment and plan: Chronic. Followed by the wound clinic for at least 4 years. On examination, ulcers to her right foot are chronic without acute erythema, edema, induration or fluctuance. No signs of an abscess or acute processes. Continue with daily wound care. (8) Tobacco abuse Current Visit: No Status: Chronic Assessment and plan: Patient stating she started smoking approximately 1 year ago secondary to her depression. She states she stopped 2 days prior to presentation. She did only smoke 1 pack every 3-4 days. Lungs clear to auscultation bilaterally. (9) Diabetes Current Visit: No Status: Chronic Assessment and plan: Uncontrolled, A1c 12.2%. Patient not receptive to teaching. Informed patient that as her diabetes continues to be uncontrolled, she is at highly elevated risk of renal failure leading to dialysis as well as worsening of her foot and hand ulcers leading to amputation. Patient still resistant to teaching. Qualifiers: Diabetes mellitus type: type 2 Diabetes mellitus complication status: with neurologic complications Diabetes mellitus complication detail: with polyneuropathy Diabetes mellitus senior care insulin use: with senior care use Qualified Code(s): E11.42 - Type 2 diabetes mellitus with diabetic polyneuropathy; Z79.4 - FDC (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 (10) Hypertension Current Visit: No Status: Chronic Assessment and plan: At home, patient is on HCTZ 25 mg daily, atenolol 100 mg daily and Lasix 40 mg by mouth twice a day. Lasix held at this time. HCTZ held at this time. She remains hypertensive, will initiate amlodipine and trend. Qualifiers: Hypertension type: essential hypertension Qualified Code(s): I10 - Essential (primary) hypertension (11) Morbid obesity with BMI of 45.0-49.9, adult Current Visit: Yes Status: Chronic - Subjective Interval history: Patient seen and examined. On examination, patient sitting upright in her bed eating her breakfast. Patient complains of her generalized chronic pain without changes. She also is still endorsing shortness of breath above her norm. She states she simply cannot breathe when she is lying down and states that at home she has to use 4-5 pillows. Patient also stating she is tired. - Constitutional Vitals: Temp Pulse Resp BP Pulse Ox 97.1 F L 64 18 160/85 92 L 06/29/16 11:00 06/29/16 11:00 06/29/16 11:00 06/29/16 11:06/29/16 11:00 General appearance: Present: A&O X 3, morbidly obese, pleasant, no acute distress, answers questions appropriately - Head Head exam: Present: atraumatic, normocephalic - Eye Eye exam: Present: PERRL, conjuntiva pink, sclera anicteric Pupils: Present: PERRL - Neck Neck exam general surgery: Present: supple, trachea midline. Absent: lymphadenopathy - Respiratory Respiratory exam: Present: CTAB. Absent: accessory muscle use, rales, respiratory distress, rhonchi, wheezes - Cardiovascular Cardiovascular exam: Present: RRR, +S1, +S2. Absent: diastolic murmur, gallop, rubs, systolic murmur - GI/Abdominal GI/Abdominal exam: Present: distended, normal bowel sounds, soft, no peritoneal signs. Absent: tenderness - Extremities Exam Extremities exam: Present: pedal edema (1+ pitting bilaterally), warm, radial pulses palpable and symetrical. Absent: calf tenderness, cyanotic - Neurological Exam Neurological exam: Present: alert, CN II-XII intact, oriented X3, no focal deficits, strengths equal and symetr throughout. Absent: pronater drift, facial droop, speech deficit - Skin Skin exam: Present: dry, intact, pallor, warm - Expanded Skin Exam Distribution of rash: Present: RUE, RLE Description of rash: Present: crusting. Absent: erythematous, fluctuant, indurated, swelling, tenderness Internal Medicine: Result - Labs CBC & Chem 7: 06/29/16 03:42 06/29/16 03:42 Labs: Short CBC 06/29/16 Range/Units 03:42 WBC 5.2 (4.3-11.1) K/mcL Hgb 9.0 L (11.5-15.4) g/dL Hct 29.2 L (35.3-44.9) % Plt Count 173 (140-400) K/mcL Neutrophils # 3.3 (1.6-8.9) K/mcL BMP 06/29/16 03:42 Sodium 136 Potassium 4.8 H Chloride 106 Carbon Dioxide 24 BUN 29 H Creatinine 2.83 H Glucose 164 H Calcium 8.3 L - Impressions Impressions Retroperitoneum Ultrasound 06/28/16 18:00 IMPRESSION: Unremarkable sonographic appearance of the kidneys. Postvoid residual within the urinary bladder as described above. D/ / Myron Lowe MD / Myron Lowe MD Interpreting Provider: Myron Lowe MD Consult Discharge Plan - Plan Referrals: Marcella Sylvester, LAMINATING MACHINE TENDER [Primary Care Provider] -
[2016-06-29] MEDS: *HR* HYDROcodone/Acet 5/325 mg TABLET PO PRN ×2 (14:32→21:09)
[2016-06-29] MEDS ORDERED: 0.9 % Sodium Chloride 1,000 ML IVC SCH (15:15)
[2016-06-29] MEDS: Silvasorb 44.4 ML TUBE TP SCH (16:24)
--- NOTE | 2016-06-29 16:58 | Nephrology Progress Note ---
Date of Encounter: 06/29/16 Time of Encounter: 17:00 - Assessment and Plan (1) Acute kidney injury superimposed on chronic kidney disease Current Visit: Yes Status: Acute SCr at plateau at 2.83, GFR 17, will monitor for now but agree with gentle hydration US of kidney results noted, no hydronephrosis Uric acid and CPK levels noted ANCA, ONEAL and complements still pending Avoid nephrotoxins if possible (2) Acute bronchitis Current Visit: Yes Status: Acute Care per primary team with antibiotics and nebs Qualifiers: Qualified Code(s): J20.9 - Acute bronchitis, unspecified (3) Hyperkalemia Current Visit: Yes Status: Acute Ptassium slightly elevated due to RENETTA, no intervention needed at this point, will monitor Continue renal diet Subjective Interval history: Interim events noted, pt seen and examined with grandson at bedside. Still with SOB, CXR today Objective - Vital Signs Vital signs: Vital Signs Temp Pulse Resp BP Pulse Ox 06/29/16 15:00 98.5 F 74 20 157/84 94 L 06/29/16 11:00 97.1 F L 64 18 160/85 92 L 06/29/16 10:40 16 92 L 06/29/16 07:04 97.6 F 68 14 180/87 98 06/29/16 03:12 98.8 F 74 15 103/62 97 06/28/16 23:28 98.6 F 82 14 179/77 95 06/28/16 21:39 18 98 06/28/16 21:01 178/88 06/28/16 19:49 98.6 F 74 18 191/109 95 Intake and Output 06/29/16 06/29/16 06/29/16 07:59 15:59 23:59 Intake Total 250 / 250 120 / 120 Balance 250 / 250 120 / 120 Intake: IV Fluids 250 / 250 Zithromax 500 mg In 250 / 250 Dextrose 5% 250 ML @ 252 mls/hr IVPB Q24H [facility] Rx#: [id number] Oral 120 / 120 Other: Meal Lunch Percent of Meal Consumed 100% Blood Glucose* 192 193 119 - General Appearance General appearance: Present: chronically ill (NAD) EENT: Present: ATNC, mucous membranes dry Neck: Present: no JVD, supple Additional Comments: good areation with transmitted upper airway sounds bilat Cardiology: Present: edema (trace LE edema bilat), normal S1, normal S2 Gastrointestinal: Present: no tenderness, no guarding, obese Integumentary: Present: ulcer (R foot with dressing) Neurologic: Present: no focal deficit Musculoskeletal: Present: no deformities Psychiatric: Present: mood/affect appropriate, cooperative - Lab 06/30/16 03:44 06/30/16 03:44 Most recent lab results Calcium 8.3 mg/dL (8.6-10.8) L 06/29/16 03:42 Magnesium 1.5 mg/dL (1.6-2.6) L 06/29/16 03:42 Consult Discharge Plan - Plan Referrals: Marcella Sylvester, MARKETING PLANNING MANAGER [Primary Care Provider] - 07/06/16 10:30 am
[2016-06-29] MEDS: Insulin DETEMIR 100 UNIT/ML X5UNITS SQ SCH (21:03)
[2016-06-30] MEDS: *HR* Heparin 5,000 UNIT/ML VIAL SQ SCH ×4 (00:02→22:49)
[2016-06-30] MEDS: Azithromycin 500 MG in D5% in Water 250 ML IVPB SCH (00:02)
[2016-06-30] MEDS: Albuterol 2.5 MG/3 ML NEBULIZER IH PRN ×3 (00:32→17:28)
[2016-06-30] MEDS ORDERED: *HR* Promethazine 25 MG/ML VIAL IVP ONE (01:22)
[2016-06-30 04:54] LABS: Basophils % 0.5 %; Eosinophils # 0.1 K/mcL (0.0-0.6); Eosinophils % 1.9 %; Hematocrit 26.7 % (35.3-44.9); Hemoglobin 8.4 g/dL (11.5-15.4); Immature Granulocytes % 0.2 % (0-4); Lymphocytes # 1.3 K/mcL (0.6-4.6); Lymphocytes % 31.7 %; Mean Corpuscular HGB Conc 31.5 g/dL (31.6-35.5); Mean Corpuscular Hemoglobin 27.6 pg (28.0-33.3); Mean Corpuscular Volume 87.8 fL (83.0-100.0); Mean Platelet Volume 11.3 fL (9.4-12.4); Monocytes # 0.5 K/mcL (0.0-1.3); Monocytes % 10.7 %; Neutrophils # 2.3 K/mcL (1.6-8.9); Platelet Count 169 K/mcL (140-400); Red Blood Count 3.04 M/mcL (3.82-4.97); Red Cell Distribution Width 14.3 % (11.5-14.5)
[2016-06-30 05:17] LABS: Calcium 8.3 mg/dL (8.6-10.8); Magnesium 1.5 mg/dL (1.6-2.6); Potassium 4.9 mEq/L (3.5-4.5)
[2016-06-30 05:51] LABS: Folate 8.5 ng/mL (7.0-31.4)
[2016-06-30] MEDS: Insulin LISPRO 300 UNITS/3 ML VIAL SQ SCH ×7 (07:23→20:49)
[2016-06-30] MEDS: *HR* HYDROcodone/Acet 5/325 mg TABLET PO PRN ×2 (07:42→20:46)
[2016-06-30] MEDS: Aspirin Enteric Coated 81 MG Tablet PO SCH (07:43)
[2016-06-30] MEDS: Famotidine 20 MG TABLET PO SCH (07:43)
--- NOTE | 2016-06-30 13:27 | Nephrology Progress Note ---
Date of Encounter: 06/30/16 Time of Encounter: 12:30 - Assessment and Plan (1) Acute kidney injury superimposed on chronic kidney disease Current Visit: Yes Status: Acute SCr worse today at 3.17, GFR 15. discussed at length poor renal function and the possibility of FIRE ENGINEER if any worse. Etiology likely multifactorial Will encourage po fluid at 2 liter a day for now Will check urine sodium, urea, eosinophils and creatinine ANCA, ONEAL and complements still pending Avoid nephrotoxins if possible (2) Hyperkalemia Current Visit: Yes Status: Acute Ptassium slightly elevated due to RENETTA, no intervention needed at this point, will monitor Continue renal diet (3) Acute bronchitis Current Visit: Yes Status: Acute Care per primary team with antibiotics and nebs Qualifiers: Qualified Code(s): J20.9 - Acute bronchitis, unspecified Subjective Interval history: Pt seen and examined with family at bedside. She reports continued SOB with coughing which improved with nebulizer treatments. She reports she did not receive much of her IVF 1 Liter NS) as her iv infiltrated. she has been on fluid restriction as well apparently at 48oz a day per nurse. Objective - Vital Signs Vital signs: Vital Signs Temp Pulse Resp BP Pulse Ox 06/30/16 11:36 98.1 F 63 16 141/94 95 06/30/16 09:14 18 96 06/30/16 06:53 98.2 F 64 17 157/92 95 06/30/16 04:57 97.5 F L 67 16 130/78 94 L 06/30/16 00:55 98.3 F 70 16 130/77 96 06/30/16 00:32 17 96 06/29/16 21:03 96 06/29/16 19:47 98.7 F 66 16 137/81 96 06/29/16 16:35 18 93 L 06/29/16 15:00 98.5 F 74 20 157/84 94 L Intake and Output 06/29/16 06/30/16 06/30/16 23:59 07:59 15:59 Intake Total 700 / 700 550 / 550 480 / 480 Balance 700 / 700 550 / 550 480 / 480 Intake: IV Fluids 550 / 550 0.9 % Sodium Chloride 1, 300 / 300 000 ML @ 75 mls/hr IVC . [id number] [facility] Rx#: [id number] Zithromax 500 mg In 250 / 250 Dextrose 5% 250 ML @ 252 mls/hr IVPB Q24H [facility] Rx#: [id number] Oral 700 / 700 480 / 480 Other: Meal Lunch Percent of Meal Consumed 100% # Voids 1 Weight 121.79 kg Blood Glucose* 139 134 122 Patient Weight 06/30/16 23:59 Weight 121.79 kg - General Appearance General appearance: Present: chronically ill (NAD) EENT: Present: ATNC, mucous membranes dry Neck: Present: no JVD, supple Cardiology: Present: edema (trace LE bilat), normal S1, normal S2 Gastrointestinal: Present: no tenderness, no guarding, obese Integumentary: Present: warm and dry, ulcer (R foot with dresing in place) Neurologic: Present: no focal deficit Musculoskeletal: Present: no deformities Psychiatric: Present: mood/affect appropriate, cooperative - Lab 06/30/16 03:44 06/30/16 03:44 Most recent lab results Calcium 8.3 mg/dL (8.6-10.8) L 06/30/16 03:44 Magnesium 1.5 mg/dL (1.6-2.6) L 06/30/16 03:44 Consult Discharge Plan - Plan Referrals: Marcella Sylvester, MOVIE SHOT CAMERA OPERATOR [Primary Care Provider] - 07/06/16 10:30 am
[2016-06-30] MEDS: Silvasorb 44.4 ML TUBE TP SCH (15:47)
--- NOTE | 2016-06-30 18:17 | Internal Med Progress Note ---
Date of Encounter: 06/30/16 Time of Encounter: 12:30 - Assessment and plan (1) Acute bronchitis Current Visit: Yes Status: Acute Assessment and plan: Continue po azithromycin Qualifiers: Bronchitis organism: unspecified organism Qualified Code(s): J20.9 - Acute bronchitis, unspecified (2) Acute exacerbation of congestive heart failure Current Visit: Yes Status: Acute Assessment and plan: The patient endorsing 4-5 pillow orthopnea at home. She is not on oxygen at home, currently on 2 L. BNP trending down. Per outside hospital, echocardiogram consistent with combined systolic and diastolic heart failure with an ejection fraction of 30-35% Diuretic currently on hold due to RENETTA on CKD OT and PT have surmised she has no needs. Patient with very poor insight Qualifiers: Congestive heart failure type: combined Qualified Code(s): I50.43 - Acute on chronic combined systolic (congestive) and diastolic (congestive) heart failure (3) Acute kidney injury superimposed on chronic kidney disease Current Visit: Yes Status: Acute Assessment and plan: Renal on board Recommendations noted, will follow Its possible there is a component of cardiorenal RENETTA (4) Acute respiratory failure Current Visit: Yes Status: Acute Assessment and plan: Not on O2 at time of review Stable without O2 Monitor closely Qualifiers: Respiratory failure complication: hypoxia Qualified Code(s): J96.01 - Acute respiratory failure with hypoxia (5) Poorly controlled diabetes mellitus Current Visit: Yes Status: Acute Assessment and plan: A1C >12 Improved Continue current insulin therapy (6) Morbid obesity with BMI of 45.0-49.9, adult Current Visit: Yes Status: Chronic (7) Normocytic anemia Current Visit: Yes Status: Chronic (8) Diabetic foot ulcer Current Visit: Yes Status: Chronic Qualifiers: Diabetes mellitus type: type 2 Laterality: right Qualified Code(s): E11.621 - Type 2 diabetes mellitus with foot ulcer; L97.519 - Non-pressure chronic ulcer of other part of right foot with unspecified severity (9) Hypertension Current Visit: No Status: Chronic Qualifiers: Hypertension type: essential hypertension Qualified Code(s): I10 - Essential (primary) hypertension (10) Tobacco abuse Current Visit: No Status: Chronic Assessment and plan: Encouraged cessation - Subjective Interval history: Patient seen at bedside with family Initial encounter with patient 56 Y/O F, Morbidly Obese, HTN, CHF rEF with EF 30%, DM, Uncontrolled, A1C 12.2, complicated by Stage IV CKD, Tobacco abuse, Chronic right foot ulcer, Anemia of Chronic disease, Admitting diagnoses include acute on chronic CHF, RENETTA on CKD, Acute on chronic hypoxic respiratory failure and Hyperkalemia Patient has no new complains My conversation with patient and her family today reveals her very poor insight into all her diagnoses She is being followed by renal - Constitutional Vitals: Temp Pulse Resp BP Pulse Ox 98.2 F 72 16 153/92 100 06/30/16 14:35 06/30/16 14:35 06/30/16 14:35 06/30/16 14:35 06/30/16 14:35 General appearance: Present: A&O X 3, morbidly obese, pleasant, no acute distress, answers questions appropriately - Head Head exam: Present: atraumatic, normocephalic - Eye Eye exam: Present: PERRL, conjuntiva pink, sclera anicteric Pupils: Present: PERRL - Neck Neck exam general surgery: Present: supple, trachea midline. Absent: lymphadenopathy - Respiratory Respiratory exam: Present: rhonchi Additional comments: L lung base - Cardiovascular Cardiovascular exam: Present: distant heart sounds, RRR, +S1, +S2. Absent: systolic murmur - GI/Abdominal GI/Abdominal exam: Present: normal bowel sounds, soft, no peritoneal signs. Absent: distended, tenderness - Extremities Exam Extremities exam: Present: pedal edema, warm, radial pulses palpable and symetrical. Absent: calf tenderness, cyanotic Additional comments: Right foot in wound dressing clean and dry Fingertips cracked , possibly from tobacco use and or neuropathy - Neurological Exam Neurological exam: Present: CN II-XII intact, oriented X3, no focal deficits. Absent: pronater drift, facial droop, speech deficit - Skin Skin exam: Present: dry, intact Internal Medicine: Result - Labs CBC & Chem 7: 06/30/16 03:44 06/30/16 03:44 Labs: Short CBC 06/30/16 Range/Units 03:44 WBC 4.2 L (4.3-11.1) K/mcL Hgb 8.4 L (11.5-15.4) g/dL Hct 26.7 L (35.3-44.9) % Plt Count 169 (140-400) K/mcL Neutrophils # 2.3 (1.6-8.9) K/mcL BMP 06/30/16 03:44 Sodium 137 Potassium 4.9 H Chloride 107 Carbon Dioxide 22 BUN 35 H Creatinine 3.17 H Glucose 150 H Calcium 8.3 L Consult Discharge Plan - Plan Referrals: Marcella Sylvester, ANGIE [Primary Care Provider] - 07/06/16 10:30 am
[2016-06-30] MEDS ORDERED: Ipratropium/Albuterol Neb 3 ML IH PRN (20:06)
[2016-06-30] MEDS: Ipratropium/Albuterol Neb 3 ML IH SCH ×2 (20:19→20:20)
[2016-06-30] MEDS: Insulin DETEMIR 100 UNIT/ML X5UNITS SQ SCH (20:46)
[2016-06-30 21:29] LABS: CK-BB (CK isoenzymes) 0 % (0-0); CK-MB (CK isoenzymes) 0 % (0-4); CK-MM (CK-isoenzymes) 100 % (96-100)
[2016-06-30] MEDS ORDERED: Metoclopramide 10 MG/2 ML VIAL IVP ONE (22:26)
[2016-07-01] MEDS ORDERED: Furosemide 20 MG/2 ML VIAL IVP ONE (00:04)
[2016-07-01] MEDS: Ipratropium/Albuterol Neb 3 ML IH SCH ×4 (03:43→21:24)
[2016-07-01] MEDS: *HR* Heparin 5,000 UNIT/ML VIAL SQ SCH ×3 (06:47→23:36)
[2016-07-01] MEDS: Aspirin Enteric Coated 81 MG Tablet PO SCH (07:58)
[2016-07-01] MEDS: Famotidine 20 MG TABLET PO SCH (07:58)
[2016-07-01] MEDS: Azithromycin 250 MG TABLET PO SCH (07:58)
[2016-07-01] MEDS: Insulin LISPRO 300 UNITS/3 ML VIAL SQ SCH ×7 (07:59→22:54)
[2016-07-01 08:42] LABS: Calcium 8.6 mg/dL (8.6-10.8); Potassium 4.6 mEq/L (3.5-4.5)
[2016-07-01] MEDS: NIFEdipine XL (24 HR) 60 MG TAB.ER.24 PO SCH (09:34)
[2016-07-01] MEDS: Furosemide 40 MG TABLET PO SCH (11:41)
--- NOTE | 2016-07-01 15:26 | Nephrology Progress Note ---
Date of Encounter: 07/01/16 Time of Encounter: 14:40 - Assessment and Plan (1) Acute kidney injury superimposed on chronic kidney disease Status: Acute SCr still poor at 3.25, GFR 15, discussed at length worsening renal function and the need for renal replacemnet thearpy soon if no improvement to aid in fluid removal as well. Will plan for HD tomorrow if any worse and if patient agrees UOP not documented yesterday but 1 liter so far today Avoid nephrotoxins if possible Keep fluid intake at 2l a day for now, will bolus with albumin as well today (2) Acute bronchitis Status: Acute Care per primary team with antibiotics and nebs Qualifiers: Bronchitis organism: unspecified organism Qualified Code(s): J20.9 - Acute bronchitis, unspecified (3) Hyperkalemia Status: Resolved Potassium slightly elevated due to RENETTA, no intervention needed at this point, will monitor Continue renal diet Subjective Interval history: Pt seen and examined with family at bedside. She reports "it hurts to breathe". She received lasix iv overnight and a po dose today due to SOB in addition to nebs. Objective - Vital Signs Vital signs: Vital Signs Temp Pulse Resp BP Pulse Ox 07/01/16 15:00 97.8 F 67 16 165/71 93 L 07/01/16 11:09 97.3 F L 70 18 173/99 97 07/01/16 09:31 175/97 07/01/16 09:20 20 95 07/01/16 07:06 98.1 F 68 18 177/92 99 07/01/16 03:43 17 98 07/01/16 02:55 97.7 F 73 18 175/92 94 L 06/30/16 22:58 98.1 F 75 18 187/83 96 06/30/16 20:20 20 93 L 06/30/16 18:46 98.1 F 75 18 188/72 95 Intake and Output 06/30/16 07/01/16 07/01/16 23:59 07:59 15:59 Intake Total 240 / 240 480 / 480 Output Total 700 / 700 300 / 300 Balance 240 / 240 -700 / -700 180 / 180 Intake: Oral 240 / 240 480 / 480 Output: Urine 700 / 700 300 / 300 Other: Meal Lunch Lunch Percent of Meal Consumed 100% 100% Blood Glucose* 131 190 127 - General Appearance General appearance: Present: chronically ill EENT: Present: ATNC, mucous membranes dry Neck: Present: no JVD, supple Respiratory: Present: course breath sounds Cardiology: Present: edema, normal S1, normal S2 Gastrointestinal: Present: no tenderness, no guarding, obese Integumentary: Present: warm and dry Neurologic: Present: no focal deficit Musculoskeletal: Present: no deformities Psychiatric: Present: mood/affect appropriate - Lab 07/05/16 04:00 07/05/16 04:00 Most recent lab results Calcium 8.6 mg/dL (8.6-10.8) 07/01/16 08:24 Magnesium 1.5 mg/dL (1.6-2.6) L 06/30/16 03:44 Urine Creatinine 95 mg/dL 06/30/16 14:22 Urine Sodium 52.0 mEq/L 06/30/16 14:22 Consult Discharge Plan - Plan Instructions: Benzonatate (By mouth), Metoprolol (By mouth), Nifedipine (By mouth), Furosemide (By mouth), Hydrocodone/Acetaminophen (By mouth), Guaifenesin (By mouth), Budesonide/Formoterol (By breathing), Heart Failure (DC) Additional Instructions: Follow-up with primary care providers as scheduled, follow-up with ophthalmology as scheduled, follow-up with pulmonology in 2 weeks, follow-up with nephrology in 1-2 weeks Referrals: Suresh Mendoza MD [Partnered Physician] - 07/10/16 9:45 am (Please arrive at 9: 30 am) Billy Antonio MD [Partnered Physician] - 08/02/16 11:15 am Darek Stratton MD [Partnered Physician] - 07/12/16 11:00 am Tu Macdonald DO [Non-Partnered Physician] - 07/09/16 3:30 pm Prescriptions: Benzonatate [Tessalon] 200 mg PO TID PRN #30 capsule PRN Reason: Cough Budesonide/Formoterol 160/4.5 [Symbicort 160/4.5] 2 puff IH BIDR #1 inhaler Furosemide [Lasix] 40 mg PO DAILY #30 tablet Guaifenesin [Guaifenesin ER] 1,200 mg PO BID PRN #20 tab.er.12h PRN Reason: Congestion HYDROcodone/Acet 5/325 mg [[place] 5-325 mg] 1 tab PO Q6H PRN #20 tablet PRN Reason: Pain Metoprolol [Lopressor] 75 mg PO BID #90 tablet NIFEdipine XL (24 HR) [Procardia XL] 60 mg PO DAILY #30 tab.er.24 Silvasorb 1 appl TP DAILY #1 tube
[2016-07-01] MEDS: Silvasorb 44.4 ML TUBE TP SCH (15:44)
--- NOTE | 2016-07-01 16:10 | Internal Med Progress Note ---
Date of Encounter: 07/01/16 Time of Encounter: 12:30 ( ) - Assessment and plan (1) Acute bronchitis Current Visit: Yes Status: Acute Assessment and plan: Continue po azithromycin Qualifiers: Bronchitis organism: unspecified organism Qualified Code(s): J20.9 - Acute bronchitis, unspecified (2) Acute exacerbation of congestive heart failure Current Visit: Yes Status: Acute Assessment and plan: The patient endorsing 4-5 pillow orthopnea at home. She is not on oxygen at home, currently on 2 L. BNP trending down. Per outside hospital, echocardiogram consistent with combined systolic and diastolic heart failure with an ejection fraction of 30-35% Diuretic was on hold due to RENETTA on CKD Patient will be restarted on po Lasix as she was having symptoms I will discuss with renal today, the option for ultrafiltration Check daily weights Strict intake and output Patient with very poor insight Qualifiers: Congestive heart failure type: combined Qualified Code(s): I50.43 - Acute on chronic combined systolic (congestive) and diastolic (congestive) heart failure (3) Acute kidney injury superimposed on chronic kidney disease Current Visit: Yes Status: Acute Assessment and plan: Renal on board Elevated uric acid, other work up pending Follow renal recommendations Transfer patient to (4) Acute respiratory failure Current Visit: Yes Status: Acute Assessment and plan: Stable Monitor closely Qualifiers: Respiratory failure complication: hypoxia Qualified Code(s): J96.01 - Acute respiratory failure with hypoxia (5) Poorly controlled diabetes mellitus Current Visit: Yes Status: Acute Assessment and plan: A1C >12 Improved Continue current insulin therapy (6) Morbid obesity with BMI of 45.0-49.9, adult Current Visit: Yes Status: Chronic (7) Normocytic anemia Current Visit: Yes Status: Chronic (8) Diabetic foot ulcer Current Visit: Yes Status: Chronic Qualifiers: Diabetes mellitus type: type 2 Laterality: right Qualified Code(s): E11.621 - Type 2 diabetes mellitus with foot ulcer; L97.519 - Non-pressure chronic ulcer of other part of right foot with unspecified severity (9) Hypertension Current Visit: No Status: Chronic Assessment and plan: Uncontrolled Start Nfedipine 60mg po, d/c atenolol and change to metoprolol po Will consider adding ACEI Qualifiers: Hypertension type: essential hypertension Qualified Code(s): I10 - Essential (primary) hypertension (10) Tobacco abuse Current Visit: No Status: Chronic Assessment and plan: Encouraged cessation - Subjective Interval history: Patient seen at bedside with family 56 Y/O F, Morbidly Obese, HTN, CHF rEF with EF 30%, DM, Uncontrolled, A1C 12.2, complicated by Stage IV CKD, Tobacco abuse, Chronic right foot ulcer, Anemia of Chronic disease, Admitting diagnoses include acute on chronic CHF, RENETTA on CKD, Acute on chronic hypoxic respiratory failure and Hyperkalemia Patient reports her breathing is worse, she had one dose of IV lasix last night that improved her breathing Her renal function is worse with decreasing GFR and increasing Creatinine Of note, her BP has been uncontrolled in the past few hours Her oxygen requirement has been stable, Chart review reveals adequate urine output and weight gain of about 10kg - Constitutional Vitals: Temp Pulse Resp BP Pulse Ox 97.8 F 67 16 165/71 93 L 07/01/16 15:00 07/01/16 15:00 07/01/16 15:00 07/01/16 15:00 07/01/16 15:00 General appearance: Present: A&O X 3, morbidly obese, pleasant, no acute distress, answers questions appropriately - Head Head exam: Present: atraumatic, normocephalic - Eye Eye exam: Present: PERRL, conjuntiva pink, sclera anicteric Pupils: Present: PERRL - Neck Neck exam general surgery: Present: supple, trachea midline. Absent: lymphadenopathy - Respiratory Respiratory exam: Present: CTAB. Absent: rales, rhonchi, wheezes - Cardiovascular Cardiovascular exam: Present: RRR, +S1, +S2. Absent: diastolic murmur, gallop, JVD, rubs, +S3, systolic murmur - GI/Abdominal GI/Abdominal exam: Present: normal bowel sounds, soft, no peritoneal signs. Absent: distended, tenderness - Extremities Exam Extremities exam: Present: warm, radial pulses palpable and symetrical. Absent : calf tenderness, cyanotic, pedal edema Additional comments: RLE in wound dressing Fingertips are chaffed, no cyanosis - Neurological Exam Neurological exam: Present: CN II-XII intact, oriented X3, no focal deficits. Absent: pronater drift, facial droop, speech deficit - Skin Skin exam: Present: dry Internal Medicine: Result - Labs CBC & Chem 7: 06/30/16 03:44 02/12/17 08:24 Labs: [facility] 07/01/16 08:24 Sodium 139 Potassium 4.6 H Chloride 108 Carbon Dioxide 23 BUN 39 H Creatinine 3.25 H Glucose 164 H Calcium 8.6 Consult Discharge Plan - Plan Referrals: Marcella Sylvester CNP [Primary Care Provider] - 07/06/16 10:30 am
[2016-07-01] MEDS: Albumin 25% 25gram/100mL 25 GM/100 ML IV.SOLN IVPB SCH (18:22)
[2016-07-01] MEDS: Insulin DETEMIR 100 UNIT/ML X5UNITS SQ SCH (22:10)
[2016-07-01] MEDS: *HR* HYDROcodone/Acet 5/325 mg TABLET PO PRN (22:16)
[2016-07-01] MEDS ORDERED: ALPRAZolam 0.5 MG TABLET PO ONE (22:39)
[2016-07-02] MEDS: Ipratropium/Albuterol Neb 3 ML IH SCH ×2 (03:23→10:38)
[2016-07-02 04:32] LABS: Calcium 8.8 mg/dL (8.6-10.8)
[2016-07-02] MEDS: *HR* Heparin 5,000 UNIT/ML VIAL SQ SCH ×2 (06:28→17:07)
[2016-07-02] MEDS: Albumin 25% 25gram/100mL 25 GM/100 ML IV.SOLN IVPB SCH ×2 (06:29→16:45)
[2016-07-02 08:02] LABS: CK Total (Ck Isoenzymes) 184 U/L (20-180)
[2016-07-02 08:05] LABS: Complement Component 3 131 mg/dL (88-201); Complement Component 4 26 mg/dL (10-40); Myeloperoxidase Ab 2 AU/mL (0-19); Serine Protease-3 Antibody 0 AU/mL (0-19)
[2016-07-02] MEDS: Furosemide 40 MG TABLET PO SCH (09:26)
[2016-07-02] MEDS: NIFEdipine XL (24 HR) 60 MG TAB.ER.24 PO SCH (09:26)
[2016-07-02] MEDS: Aspirin Enteric Coated 81 MG Tablet PO SCH (09:26)
[2016-07-02] MEDS: Azithromycin 250 MG TABLET PO SCH (09:27)
[2016-07-02] MEDS: *HR* HYDROcodone/Acet 5/325 mg TABLET PO PRN ×3 (09:27→21:54)
[2016-07-02] MEDS: Famotidine 20 MG TABLET PO SCH (09:27)
[2016-07-02] MEDS: Insulin LISPRO 300 UNITS/3 ML VIAL SQ SCH ×7 (09:29→21:39)
--- NOTE | 2016-07-02 12:41 | Internal Med Progress Note ---
Date of Encounter: 07/02/16 Time of Encounter: 11:22 - Assessment and plan (1) Acute bronchitis Current Visit: Yes Status: Acute Assessment and plan: Today is 5th day on azithromycin, discontinue from tomorrow 07/03 Qualifiers: Bronchitis organism: unspecified organism Qualified Code(s): J20.9 - Acute bronchitis, unspecified (2) Acute exacerbation of congestive heart failure Current Visit: Yes Status: Acute Assessment and plan: Patient with combined systolic and diastolic heart failure with an ejection fraction of 30-35% Diuretic was on hold due to RENETTA on CKD till 06/30 Lasix was restarted 07/01/15 and renal function slightly improved as well as patient's respiratory symptoms Continue lasix 40mg po daily with additional prn doses Continue fluid restriction Check daily weights Strict intake and output Patient with very poor insight Qualifiers: Congestive heart failure type: combined Qualified Code(s): I50.43 - Acute on chronic combined systolic (congestive) and diastolic (congestive) heart failure (3) Acute kidney injury superimposed on chronic kidney disease Current Visit: Yes Status: Acute Assessment and plan: Renal on board Elevated uric acid, other work up pending Follow renal recommendations (4) Acute respiratory failure Current Visit: Yes Status: Acute Assessment and plan: Stable Monitor closely Qualifiers: Respiratory failure complication: hypoxia Qualified Code(s): J96.01 - Acute respiratory failure with hypoxia (5) Poorly controlled diabetes mellitus Current Visit: Yes Status: Acute Assessment and plan: A1C >12 Improved FS Continue current insulin therapy, diabetic diet (6) Morbid obesity with BMI of 45.0-49.9, adult Current Visit: Yes Status: Chronic (7) Normocytic anemia Current Visit: Yes Status: Chronic (8) Diabetic foot ulcer Current Visit: Yes Status: Chronic Assessment and plan: Continue wound dressing Qualifiers: Diabetes mellitus type: type 2 Laterality: right Qualified Code(s): E11.621 - Type 2 diabetes mellitus with foot ulcer; L97.519 - Non-pressure chronic ulcer of other part of right foot with unspecified severity (9) Hypertension Current Visit: No Status: Chronic Assessment and plan: Uncontrolled Add hydralazine, titrate up prn Increase lopressor Continue nifedipine and lasic Qualifiers: Hypertension type: essential hypertension Qualified Code(s): I10 - Essential (primary) hypertension (10) Tobacco abuse Current Visit: No Status: Chronic Assessment and plan: Encouraged cessation - Subjective Interval history: Patient seen at bedside with family 56 Y/O F, Morbidly Obese, HTN, CHF rEF with EF 30%, DM, Uncontrolled, A1C 12.2, complicated by Stage IV CKD, Tobacco abuse, Chronic right foot ulcer, Anemia of Chronic disease, Admitting diagnoses include acute on chronic CHF, RENETTA on CKD, Acute on chronic hypoxic respiratory failure and Hyperkalemia Patient seen at bedside Reports feeling better today, with improvement in her breathing Her renal function has slightly improved with oncodiuresis Blood pressure continues to be elevated, will add hydralazine today and increase lopressor - Constitutional Vitals: Temp Pulse Resp BP Pulse Ox 97.9 F 89 18 168/89 94 L 07/02/16 11:20 07/02/16 11:20 07/02/16 11:20 07/02/16 11:20 07/02/16 11:20 General appearance: Present: A&O X 3, morbidly obese, pleasant, no acute distress, answers questions appropriately - Head Head exam: Present: atraumatic, normocephalic - Eye Eye exam: Present: PERRL, conjuntiva pink, sclera anicteric Pupils: Present: PERRL - Neck Neck exam general surgery: Present: supple, trachea midline. Absent: lymphadenopathy - Respiratory Respiratory exam: Present: CTAB. Absent: accessory muscle use, rales, rhonchi, wheezes - Cardiovascular Cardiovascular exam: Present: RRR, +S1, +S2. Absent: diastolic murmur, gallop, rubs, systolic murmur - GI/Abdominal GI/Abdominal exam: Present: normal bowel sounds, soft, no peritoneal signs. Absent: distended, tenderness - Extremities Exam Extremities exam: Present: pedal edema (Trace , bilateral), warm, radial pulses palpable and symetrical. Absent: calf tenderness, cyanotic Additional comments: RLE chronic leg ulcer - Skin Skin exam: Present: dry Internal Medicine: Result - Labs CBC & Chem 7: 06/30/16 03:44 07/02/16 03:47 Labs: BMP 07/02/16 03:47 Sodium 141 Potassium 4.0 Chloride 110 H Carbon Dioxide 23 BUN 36 H Creatinine 2.93 H Glucose 93 Calcium 8.8 Cardiac Enzymes 06/28/16 Range/Units 03:21 CK-MB (CK-2) 0 (0-4) % Consult Discharge Plan - Plan Referrals: Marcella Sylvester CNP [Primary Care Provider] - 07/06/16 10:30 am
[2016-07-02] MEDS ORDERED: Furosemide 40 MG TABLET PO ONE (12:45)
--- NOTE | 2016-07-02 13:30 | Nephrology Progress Note ---
Date of Encounter: 07/02/16 Time of Encounter: 11:45 - Assessment and Plan (1) Acute kidney injury superimposed on chronic kidney disease Status: Acute SCr improved at 2.93, GFR 17. No need for DATA SCIENCES DIRECTOR today, will reassess tomorrow UOP not well documented but pt affirms improved UOP Will continue albumin boluses as appears to be helping overall Avoid nephrotoxins if possible (2) Acute bronchitis Status: Acute Care per primary team with antibiotics and nebs Qualifiers: Bronchitis organism: unspecified organism Qualified Code(s): J20.9 - Acute bronchitis, unspecified (3) Hyperkalemia Status: Resolved Potassium normalized Continue renal diet Subjective Interval history: Pt seen and examined with family at bedside. She reports breathing improved today and making more UOP Objective - Vital Signs Vital signs: Vital Signs Temp Pulse Resp BP Pulse Ox 07/02/16 11:20 97.9 F 89 18 168/89 94 L 07/02/16 10:38 16 100 07/02/16 07:13 97.9 F 69 18 134/79 94 L 07/02/16 04:03 98.0 F 73 16 163/87 98 07/02/16 03:23 16 90 L 07/01/16 23:33 97.9 F 81 16 158/77 94 L 07/01/16 21:24 14 95 07/01/16 21:00 95 07/01/16 19:14 97.8 F 74 12 156/75 95 07/01/16 15:39 20 92 L 07/01/16 15:00 97.8 F 67 16 165/71 93 L Intake and Output 07/01/16 07/02/16 07/02/16 23:59 07:59 15:59 Intake Total 340 / 340 250 / 250 580 / 580 Balance 340 / 340 250 / 250 580 / 580 Intake: IV Fluids 100 / 100 100 / 100 Flexbumin 25 gm In 100 ml 100 / 100 100 / 100 @ 60 mls/hr IVPB Q12HR COUNT INCLUDES [facility] Rx#:[id number] Oral 240 / 240 250 / 250 480 / 480 Other: Meal Dinner Lunch Percent of Meal Consumed 100% 100% Weight 121.619 kg Blood Glucose* 120 263 Patient Weight 07/02/16 23:59 Weight 121.619 kg - General Appearance General appearance: Present: chronically ill EENT: Present: ATNC, mucous membranes moist Neck: Present: no JVD, supple Additional Comments: improved areation ant bilat Cardiology: Present: edema, normal S1, normal S2 Gastrointestinal: Present: no tenderness, no guarding, obese Integumentary: Present: warm and dry Neurologic: Present: no focal deficit Musculoskeletal: Present: no deformities Psychiatric: Present: mood/affect appropriate - Lab 07/05/16 04:00 07/05/16 04:00 Most recent lab results Calcium 8.8 mg/dL (8.6-10.8) 07/02/16 03:47 Magnesium 1.5 mg/dL (1.6-2.6) L 06/30/16 03:44 Urine Creatinine 95 mg/dL 06/30/16 14:22 Urine Sodium 52.0 mEq/L 06/30/16 14:22 Consult Discharge Plan - Plan Instructions: Benzonatate (By mouth), Metoprolol (By mouth), Nifedipine (By mouth), Furosemide (By mouth), Hydrocodone/Acetaminophen (By mouth), Guaifenesin (By mouth), Budesonide/Formoterol (By breathing), Heart Failure (DC) Additional Instructions: Follow-up with primary care providers as scheduled, follow-up with ophthalmology as scheduled, follow-up with pulmonology in 2 weeks, follow-up with nephrology in 1-2 weeks Referrals: Suresh Mendoza MD [Partnered Physician] - 07/10/16 9:45 am (Please arrive at 9: 30 am) Billy Antonio MD [Partnered Physician] - 08/02/16 11:15 am Darek Stratton MD [Partnered Physician] - 07/12/16 11:00 am Tu Macdonald DO [Non-Partnered Physician] - 07/09/16 3:30 pm Prescriptions: Benzonatate [Tessalon] 200 mg PO TID PRN #30 capsule PRN Reason: Cough Budesonide/Formoterol 160/4.5 [Symbicort 160/4.5] 2 puff IH BIDR #1 inhaler Furosemide [Lasix] 40 mg PO DAILY #30 tablet Guaifenesin [Guaifenesin ER] 1,200 mg PO BID PRN #20 tab.er.12h PRN Reason: Congestion HYDROcodone/Acet 5/325 mg [[place] 5-325 mg] 1 tab PO Q6H PRN #20 tablet PRN Reason: Pain Metoprolol [Lopressor] 75 mg PO BID #90 tablet NIFEdipine XL (24 HR) [Procardia XL] 60 mg PO DAILY #30 tab.er.24 Silvasorb 1 appl TP DAILY #1 tube
[2016-07-02] MEDS: Silvasorb 44.4 ML TUBE TP SCH (16:42)
[2016-07-02] MEDS: hydrALAZINE 25 MG TABLET PO SCH (16:45)
[2016-07-02] MEDS: traZODone 50 MG TABLET PO SCH (21:38)
[2016-07-02] MEDS: Insulin DETEMIR 100 UNIT/ML X5UNITS SQ SCH (21:39)
[2016-07-03] MEDS: hydrALAZINE 25 MG TABLET PO SCH ×5 (00:19→23:40)
[2016-07-03] MEDS: *HR* Heparin 5,000 UNIT/ML VIAL SQ SCH ×4 (00:19→23:41)
[2016-07-03] MEDS: Albumin 25% 25gram/100mL 25 GM/100 ML IV.SOLN IVPB SCH ×2 (06:36→18:00)
[2016-07-03] MEDS: Ipratropium/Albuterol Neb 3 ML IH PRN ×2 (07:41→18:35)
[2016-07-03] MEDS: Insulin LISPRO 300 UNITS/3 ML VIAL SQ SCH ×7 (07:42→20:38)
[2016-07-03 08:42] LABS: Hematocrit 27.9 % (35.3-44.9); Hemoglobin 8.9 g/dL (11.5-15.4); Immature Platelets 2.7 % (1.1-6.1); Mean Corpuscular HGB Conc 31.9 g/dL (31.6-35.5); Mean Corpuscular Hemoglobin 27.4 pg (28.0-33.3); Mean Corpuscular Volume 85.8 fL (83.0-100.0); Red Blood Count 3.25 M/mcL (3.82-4.97)
[2016-07-03 08:52] LABS: Calcium 8.8 mg/dL (8.6-10.8)
[2016-07-03] MEDS: Famotidine 20 MG TABLET PO SCH (09:26)
[2016-07-03] MEDS: Furosemide 40 MG TABLET PO SCH (09:27)
[2016-07-03] MEDS: NIFEdipine XL (24 HR) 60 MG TAB.ER.24 PO SCH (09:27)
[2016-07-03] MEDS: Aspirin Enteric Coated 81 MG Tablet PO SCH (09:27)
[2016-07-03] MEDS: Azithromycin 250 MG TABLET PO SCH (09:27)
[2016-07-03] MEDS: *HR* HYDROcodone/Acet 5/325 mg TABLET PO PRN ×2 (09:32→20:35)
--- NOTE | 2016-07-03 10:23 | Internal Med Progress Note ---
Date of Encounter: 07/03/16 Time of Encounter: 09:30 - Assessment and plan (1) Acute exacerbation of congestive heart failure Current Visit: Yes Status: Acute Assessment and plan: Patient with combined systolic and diastolic heart failure with an ejection fraction of 30-35%. Initially on in her admission, her diuretics were held due to acute kidney injury superimposed on chronic kidney disease stage IV. Lasix by mouth 40 mg daily has been restarted and she is tolerating it well. Renal function stable. Attempted to talk to the patient about fluid and sodium restricted diets however she was not receptive to education. Continue fluid and sodium restricted diets with daily weights and strict I's and O's. Patient denies shortness of breath above her normal however is still endorsing a persistent dry cough. Will add Tessalon Perles and codeine. (2) Acute kidney injury superimposed on chronic kidney disease Current Visit: Yes Status: Acute Assessment and plan: Nephrology on board. Stable and very slightly improved from yesterday. Appreciate nephrology recommendations. (3) Acute respiratory failure Current Visit: Yes Status: Acute Assessment and plan: Stable. Patient denies shortness of breath above her norm today. She is tolerating room air. Qualifiers: Respiratory failure complication: hypoxia Qualified Code(s): J96.01 - Acute respiratory failure with hypoxia (4) Hyperkalemia Current Visit: Yes Status: Resolved (5) Anemia Current Visit: No Status: Chronic Assessment and plan: Chronic and stable. Likely ACD; iron levels low. B12 and folate normal. We will continue to trend. Qualifiers: Anemia type: other cause Other causes of anemia: other cause, not classified Qualified Code(s): D64.89 - Other specified anemias (6) DVT prophylaxis Current Visit: No Status: Acute Assessment and plan: Subcutaneous heparin (7) Foot ulcer due to secondary DM Current Visit: No Status: Chronic Assessment and plan: Chronic. Followed by the wound clinic for at least 4 years. On examination, ulcers to her right foot are chronic without acute erythema, edema, induration or fluctuance. No signs of an abscess or acute processes. Continue with daily wound care. (8) Tobacco abuse Current Visit: No Status: Chronic Assessment and plan: Encouraged cessation. Patient states she stopped smoking 2 days prior to presentation. (9) Diabetes Current Visit: No Status: Chronic Assessment and plan: Uncontrolled, A1c 12.2%. Patient not receptive to teaching. Informed patient that as her diabetes continues to be uncontrolled, she is at highly elevated risk of renal failure leading to dialysis as well as worsening of her foot and hand ulcers leading to amputation. Patient still resistant to teaching. 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 Nifedipine and Lasix continued. Better controlled today- will continue to trend and adjust medications as indicated. (11) Morbid obesity with BMI of 45.0-49.9, adult Current Visit: Yes Status: Chronic (12) Blurred vision, right eye Current Visit: Yes Status: Acute Assessment and plan: Acute onset yesterday, will bring ophthalmology on board. Dr. Macdonald. Patient is stating she has had a couple surgeries on her eyes over the past year with her most recent one being last month. She states her eye doctor had informed her that they were surprised she still had vision according to the patient. She does state that the surgery was done here in [place] per a doctor Aleksey- unable to find this provider. - Subjective Interval history: Patient seen and examined. On examination, patient sitting upright in her bed conversing with her son. Patient is complaining of a dry cough that is so persistent that she now has chest pain and a sore throat. Patient states she is eating well. Patient stated she is not sleeping well secondary to increased noise in the hospital. Patient also is endorsing right eye blurred vision that started yesterday. - Constitutional Vitals: Temp Pulse Resp BP Pulse Ox 97.6 F 69 18 139/83 94 L 07/03/16 07:13 07/03/16 07:13 07/03/16 07:42 07/03/16 07:13 07/03/16 07:42 General appearance: Present: A&O X 3, morbidly obese, pleasant, no acute distress, answers questions appropriately - Head Head exam: Present: atraumatic, normocephalic - Eye Eye exam: Present: PERRL, conjuntiva pink, sclera anicteric Pupils: Present: PERRL - Neck Neck exam general surgery: Present: supple, trachea midline. Absent: lymphadenopathy - Respiratory Respiratory exam: Present: decreased breath sounds. Absent: accessory muscle use, rales, respiratory distress, rhonchi, wheezes - Cardiovascular Cardiovascular exam: Present: RRR, +S1, +S2. Absent: diastolic murmur, gallop, rubs, systolic murmur - GI/Abdominal GI/Abdominal exam: Present: normal bowel sounds, soft, no peritoneal signs. Absent: distended, tenderness - Extremities Exam Extremities exam: Present: pedal edema, warm, radial pulses palpable and symetrical. Absent: calf tenderness, cyanotic - Neurological Exam Neurological exam: Present: alert, CN II-XII intact, oriented X3, no focal deficits, strengths equal and symetr throughout. Absent: pronater drift, facial droop, speech deficit - Skin Skin exam: Present: dry, intact, normal color, warm Internal Medicine: Result - Labs CBC & Chem 7: 07/03/16 08:35 07/03/16 08:35 Labs: Short CBC 07/03/16 Range/Units 08:35 WBC 4.0 L (4.3-11.1) K/mcL Hgb 8.9 L (11.5-15.4) g/dL Hct 27.9 L (35.3-44.9) % Plt Count 187 (140-400) K/mcL [facility] 07/03/16 08:35 Sodium 141 Potassium 4.0 Chloride 110 H Carbon Dioxide 22 BUN 33 H Creatinine 2.71 H Glucose 102 H Calcium 8.8 Consult Discharge Plan - Plan Referrals: Marcella Sylvester CNP [Primary Care Provider] - 07/06/16 10:30 am
[2016-07-03] MEDS ORDERED: *HR* Acetaminophen w/Cod 300-30 mg 1 TAB TABLET PO PRN (10:34)
[2016-07-03] MEDS: Benzonatate 100 MG CAPSULE PO SCH ×3 (11:13→20:32)
[2016-07-03] MEDS: Silvasorb 44.4 ML TUBE TP SCH (15:09)
--- NOTE | 2016-07-03 17:32 | Nephrology Progress Note ---
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 but pt reports increased UOP Avoid nephrotoxins if possible Will continue albumin with lasix for another day (2) Acute bronchitis Current Visit: Yes Status: Acute Care per primary team with antibiotics, cough meds and nebs Qualifiers: Bronchitis organism: unspecified organism Qualified Code(s): J20.9 - Acute bronchitis, unspecified (3) Hyperkalemia Current Visit: Yes Status: Resolved Potassium normalized, continue renal diet Subjective Interval history: Pt seen and examined with family at bedside. Feeling better overall. No new complaints except continued coughing with resultant chest and back pain. Nebs helping but overall breathing improved Objective - Vital Signs Vital signs: Vital Signs Temp Pulse Resp BP Pulse Ox 07/03/16 15:46 98.0 F 73 18 148/75 94 L 07/03/16 11:29 97.5 F L 75 18 148/70 94 L 07/03/16 07:42 18 94 L 07/03/16 07:13 97.6 F 69 18 139/83 94 L 07/03/16 03:20 97.6 F 75 16 152/73 93 L 07/03/16 00:06 97.8 F 69 16 129/76 98 07/02/16 18:31 97.7 F 69 16 132/69 95 Intake and Output 07/03/16 07/03/16 07/03/16 07:59 15:59 23:59 Intake Total 220 / 220 Balance 220 / 220 Intake: IV Fluids 100 / 100 Flexbumin 25 gm In 100 ml 100 / 100 @ 60 mls/hr IVPB Q12HR [facility] Rx#:[id number] Oral 120 / 120 Other: Meal Lunch Percent of Meal Consumed 100% Blood Glucose* 99 107 - General Appearance General appearance: Present: chronically ill (NAD) EENT: Present: ATNC, mucous membranes moist Neck: Present: no JVD, supple Respiratory: Present: wheezing (scattered but good areation bilat) Cardiology: Present: edema (LE bilat), normal S1, normal S2 Gastrointestinal: Present: no tenderness, no guarding Integumentary: Present: warm and dry Neurologic: Present: no focal deficit Musculoskeletal: Present: no deformities Psychiatric: Present: mood/affect appropriate - Lab 07/03/16 08:35 07/03/16 08:35 Most recent lab results Calcium 8.8 mg/dL (8.6-10.8) 07/03/16 08:35 Magnesium 1.5 mg/dL (1.6-2.6) L 06/30/16 03:44 Urine Creatinine 95 mg/dL 06/30/16 14:22 Urine Sodium 52.0 mEq/L 06/30/16 14:22 Consult Discharge Plan - Plan Referrals: Marcella Sylvester CNP [Primary Care Provider] - 07/06/16 10:30 am Tu Macdonald DO [Non-Partnered Physician] - 07/09/16 3:30 pm
[2016-07-03] MEDS: Insulin DETEMIR 100 UNIT/ML X5UNITS SQ SCH (20:32)
[2016-07-03] MEDS: traZODone 50 MG TABLET PO SCH (20:32)
[2016-07-04 06:07] LABS: Basophils % 0.4 %; Eosinophils # 0.2 K/mcL (0.0-0.6); Hemoglobin 9.3 g/dL (11.5-15.4); Immature Granulocytes % 0.6 % (0-4); Lymphocytes # 2.1 K/mcL (0.6-4.6); Lymphocytes % 41.4 %; Mean Corpuscular Hemoglobin 26.9 pg (28.0-33.3); Mean Corpuscular Volume 86.7 fL (83.0-100.0); Mean Platelet Volume 10.7 fL (9.4-12.4); Monocytes # 0.3 K/mcL (0.0-1.3); Monocytes % 6.6 %; Neutrophils # 2.4 K/mcL (1.6-8.9); Platelet Count 213 K/mcL (140-400); Red Blood Count 3.46 M/mcL (3.82-4.97); Red Cell Distribution Width 14.1 % (11.5-14.5)
[2016-07-04 06:25] LABS: Calcium 9.1 mg/dL (8.6-10.8); Magnesium 1.7 mg/dL (1.6-2.6)
[2016-07-04] MEDS: Albumin 25% 25gram/100mL 25 GM/100 ML IV.SOLN IVPB SCH ×2 (06:29→17:47)
[2016-07-04] MEDS: hydrALAZINE 25 MG TABLET PO SCH ×3 (06:29→17:47)
[2016-07-04] MEDS: *HR* Heparin 5,000 UNIT/ML VIAL SQ SCH ×2 (06:30→15:38)
[2016-07-04] MEDS: Ipratropium/Albuterol Neb 3 ML IH PRN (06:42)
[2016-07-04] MEDS: Furosemide 40 MG TABLET PO SCH (08:10)
[2016-07-04] MEDS: Insulin LISPRO 300 UNITS/3 ML VIAL SQ SCH ×7 (08:10→21:18)
[2016-07-04] MEDS: Azithromycin 250 MG TABLET PO SCH (08:11)
[2016-07-04] MEDS: Famotidine 20 MG TABLET PO SCH (08:11)
[2016-07-04] MEDS: Aspirin Enteric Coated 81 MG Tablet PO SCH (08:11)
[2016-07-04] MEDS: NIFEdipine XL (24 HR) 60 MG TAB.ER.24 PO SCH (08:11)
[2016-07-04] MEDS: Benzonatate 100 MG CAPSULE PO SCH ×3 (08:11→21:18)
--- NOTE | 2016-07-04 10:05 | Internal Med Progress Note ---
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 Initially on in her admission, her diuretics were held due to acute kidney injury superimposed on chronic kidney disease stage IV. Lasix by mouth 40 mg daily has been restarted and she is tolerating it well. Renal function stable/slightly decreased overnight. Attempted to talk to the patient about fluid and sodium restricted diets however she was not receptive to education. Continue fluid and sodium restricted diets with daily weights and strict I's and O's. Patient denies shortness of breath above her normal however is still endorsing a persistent dry cough. Her biggest complaint this am is that her face and chest are now congested. Scheduled Tessalon Pearles with Codeine for breakthrough coughing started yesterday and her cough has improved slightly. Repeat CXR consistent with vascular congestion- would like to increase lasix dosage, but her renal functioning decreased slightly overnight - will appreciate Nephrology's input. Nodules also noted on CXR- will obtain chest CT (without contrast). Nonpitting pedal edema noted. Regarding plan of care, possible discharge tomorrow pending clinical outcomes. ITS Impressions Chest X-Ray 07/04/16 07:45 IMPRESSION: Pulmonary vascular congestion, increased consolidation right lung base. Additionally, there are bilateral lung nodules. Although these are stable since the earliest chest x-ray performed 12/10/2015 and could be granulomas, consider CT chest for further evaluation, especially if there is history of malignancy or concern for metastatic disease. The findings were sent to the Radiology Results Communication Center at 9:26 am on 07/04/2016to be communicated to a licensed caregiver. D/ / 07/04/2016 09:31:37 Letty Dominguez MD / Neetu Gutiérrez Interpreting Provider: Letty Dominguez MD (2) Acute kidney injury superimposed on chronic kidney disease Current Visit: Yes Status: Acute Assessment and plan: Nephrology on board. Stable but slightly decreased from yesterday. Appreciate nephrology recommendations. (3) Acute respiratory failure Current Visit: Yes Status: Acute Assessment and plan: Stable. Patient denies shortness of breath above her norm today. She continues to tolerate room air. Qualifiers: Respiratory failure complication: hypoxia Qualified Code(s): J96.01 - Acute respiratory failure with hypoxia (4) Hyperkalemia Current Visit: Yes Status: Resolved (5) Anemia Current Visit: No Status: Chronic Assessment and plan: Chronic and stable. Likely ACD; iron levels low. B12 and folate normal. We will continue to trend. Qualifiers: Anemia type: other cause Other causes of anemia: other cause, not classified Qualified Code(s): D64.89 - Other specified anemias (6) DVT prophylaxis Current Visit: No Status: Acute Assessment and plan: Subcutaneous heparin (7) Foot ulcer due to secondary DM Current Visit: No Status: Chronic Assessment and plan: Chronic. Followed by the wound clinic for at least 4 years. On examination, ulcers to her right foot are chronic without acute erythema, edema, induration or fluctuance. No signs of an abscess or acute processes. Continue with daily wound care. (8) Tobacco abuse Current Visit: No Status: Chronic Assessment and plan: Encouraged cessation. Patient states she stopped smoking 2 days prior to presentation. (9) Diabetes Current Visit: No Status: Chronic Assessment and plan: Uncontrolled, A1c 12.2%. Patient not receptive to teaching. Informed patient that as her diabetes continues to be uncontrolled, she is at highly elevated risk of renal failure leading to dialysis as well as worsening of her foot and hand ulcers leading to amputation. Patient still resistant to teaching- DM educator onboard. Qualifiers: Diabetes mellitus type: type 2 Diabetes mellitus complication status: with neurologic complications Diabetes mellitus complication detail: with polyneuropathy Diabetes mellitus long-term insulin use: with long-term use Qualified Code(s): E11.42 - Type 2 diabetes mellitus with diabetic polyneuropathy; Z79.4 - halfway (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 (10) Hypertension Current Visit: No Status: Chronic Assessment and plan: Now controlled. Yesterday, Hydralazine was added and Lopressor dosage was increased. Nifedipine and Lasix were continued. Will continue to trend and adjust medications as indicated. (11) Morbid obesity with BMI of 45.0-49.9, adult Current Visit: Yes Status: Chronic (12) Blurred vision, right eye Current Visit: Yes Status: Acute Assessment and plan: Spoke to Mechanical Artist Dr Macdonald yesterday who will see the patient immediately upon her discharge. 07/03/16 Acute onset yesterday, will bring ophthalmology on board. Dr. Macdonald. Patient is stating she has had a couple surgeries on her eyes over the past year with her most recent one being last month. She states her eye doctor had informed her that they were surprised she still had vision according to the patient. She does state that the surgery was done here in [place] per a doctor Aleksey- unable to find this provider. - Subjective Interval history: Patient seen and examined. On examination, patient sitting upright in her bed conversing with her son. Patient stating her cough has slightly improved. She is complaining of increased congestion to her face and chest. Patient states she is eating well. Patient stated she is not sleeping well secondary to increased noise in the hospital. - Constitutional Vitals: Temp Pulse Resp BP Pulse Ox 97.8 F 84 20 135/81 94 L 07/04/16 07:30 07/04/16 07:30 07/04/16 07:30 07/04/16 07:30 07/04/16 07:30 General appearance: Present: A&O X 3, morbidly obese, pleasant, no acute distress, answers questions appropriately - Head Head exam: Present: atraumatic, normocephalic - Eye Eye exam: Present: PERRL, conjuntiva pink, sclera anicteric Pupils: Present: PERRL - Neck Neck exam general surgery: Present: supple, trachea midline. Absent: lymphadenopathy - Respiratory Respiratory exam: Present: decreased breath sounds, prolonged expiratory phase, wheezes. Absent: accessory muscle use, rales, respiratory distress, rhonchi - Cardiovascular Cardiovascular exam: Present: RRR, +S1, +S2. Absent: diastolic murmur, gallop, rubs, systolic murmur - GI/Abdominal GI/Abdominal exam: Present: normal bowel sounds, soft, no peritoneal signs. Absent: distended, tenderness - Extremities Exam Extremities exam: Present: pedal edema (nonpitting), warm, radial pulses palpable and symetrical. Absent: calf tenderness, cyanotic - Neurological Exam Neurological exam: Present: alert, CN II-XII intact, oriented X3, no focal deficits, strengths equal and symetr throughout. Absent: pronater drift, facial droop, speech deficit - Expanded Neurological Exam Neurological exam expanded: Present: protecting the airway Patient oriented to: Present: person, place, time Speech: Present: fluid speech Neuro motor strength exam: LUE: 5, RUE: 5, LLE: 5, RLE: 5 Coma Scale Eye Opening: Spontaneous Coma Scale Motor Response: Obeys Commands Coma Scale Verbal Response: Oriented Coma Scale Total: 15 - Psychiatric Psychiatric exam: Present: flat affect. Absent: suicidal ideation - Skin Skin exam: Present: dry, intact, normal color, warm Internal Medicine: Result - Labs CBC & Chem 7: 07/04/16 03:56 07/04/16 03:56 Labs: Short CBC 07/04/16 Range/Units 03:56 WBC 5.0 (4.3-11.1) K/mcL Hgb 9.3 L (11.5-15.4) g/dL Hct 30.0 L (35.3-44.9) % Plt Count 213 (140-400) K/mcL Neutrophils # 2.4 (1.6-8.9) K/mcL BMP 07/04/16 03:56 Sodium 144 Potassium 4.0 Chloride 110 H Carbon Dioxide 23 BUN 33 H Creatinine 2.82 H Glucose 126 H Calcium 9.1 - Impressions Impressions Chest X-Ray 07/04/16 07:45 IMPRESSION: Pulmonary vascular congestion, increased consolidation right lung base. Additionally, there are bilateral lung nodules. Although these are stable since the earliest chest x-ray performed 12/10/2015 and could be granulomas, consider CT chest for further evaluation, especially if there is history of malignancy or concern for metastatic disease. The findings were sent to the Radiology Results Communication Center at 9:26 am on 07/04/2016to be communicated to a licensed caregiver. D/ / 07/04/2016 09:31:37 Letty Dominguez MD / Neetu Gutiérrez Interpreting Provider: Letty Dominguez MD Consult Discharge Plan - Plan Referrals: Marcella Sylvester, ANGIE [Primary Care Provider] - 07/06/16 10:30 am Tu Macdonald DO [Non-Partnered Physician] - 07/09/16 3:30 pm
[2016-07-04] MEDS: Acetylcysteine 10% 2 ML INHSOL IH SCH ×4 (11:35→23:29)
[2016-07-04] MEDS: Ipratropium/Albuterol Neb 3 ML IH SCH ×4 (11:35→23:29)
--- NOTE | 2016-07-04 11:43 | Nephrology Progress Note ---
Date of Encounter: 07/04/16 Time of Encounter: 11:45 - Assessment and Plan (1) Acute kidney injury superimposed on chronic kidney disease Status: Acute SCr continues to improve at 2.71, GFR 18, no need for SMUTTER at this time UOP not documented! but pt reports increased UOP Avoid nephrotoxins if possible Will continue albumin with lasix for another day (2) Acute bronchitis Status: Acute Care per primary team with antibiotics, cough meds and nebs Qualifiers: Bronchitis organism: unspecified organism Qualified Code(s): J20.9 - Acute bronchitis, unspecified (3) Hyperkalemia Status: Resolved Potassium normalized, continue renal diet Subjective Interval history: Pt seen and examined with family at bedside. Feeling better overall. No new complaints except continued coughing with resultant chest and back pain. Nebs helping but overall breathing improved Objective - Vital Signs Vital signs: Vital Signs Temp Pulse Resp BP Pulse Ox 07/04/16 11:35 18 95 07/04/16 07:30 97.8 F 84 20 135/81 94 L 07/04/16 06:42 15 93 L 07/04/16 03:58 97.5 F L 72 12 134/80 93 L 07/03/16 23:40 98.1 F 82 12 153/81 93 L 07/03/16 18:45 98.1 F 90 12 169/68 95 07/03/16 18:37 18 92 L 07/03/16 15:46 98.0 F 73 18 148/75 94 L Intake and Output 07/03/16 07/04/16 07/04/16 23:59 07:59 15:59 Intake Total 100 / 100 340 / 340 Output Total 600 / 600 500 / 500 Balance -500 / -500 -500 / -500 340 / 340 Intake: IV Fluids 100 / 100 100 / 100 Flexbumin 25 gm In 100 ml 100 / 100 100 / 100 @ 60 mls/hr IVPB Q12HR [facility] Rx#:[id number] Oral 240 / 240 Output: Urine 600 / 600 500 / 500 Other: Meal Breakfast Percent of Meal Consumed 100% Blood Glucose* 161 143 - General Appearance General appearance: Present: chronically ill EENT: Present: ATNC, mucous membranes moist Neck: Present: no JVD, supple Additional Comments: Improved areation ant bilat Cardiology: Present: edema, normal S1, normal S2 Gastrointestinal: Present: no tenderness, no guarding, obese Integumentary: Present: warm and dry Neurologic: Present: no focal deficit Musculoskeletal: Present: no deformities Psychiatric: Present: mood/affect appropriate - Lab 07/05/16 04:00 07/05/16 04:00 Most recent lab results Calcium 9.1 mg/dL (8.6-10.8) 07/04/16 03:56 Magnesium 1.7 mg/dL (1.6-2.6) 07/04/16 03:56 Urine Creatinine 95 mg/dL 06/30/16 14:22 Urine Sodium 52.0 mEq/L 06/30/16 14:22 Consult Discharge Plan - Plan Instructions: Benzonatate (By mouth), Metoprolol (By mouth), Nifedipine (By mouth), Furosemide (By mouth), Hydrocodone/Acetaminophen (By mouth), Guaifenesin (By mouth), Budesonide/Formoterol (By breathing), Heart Failure (DC) Additional Instructions: Follow-up with primary care providers as scheduled, follow-up with ophthalmology as scheduled, follow-up with pulmonology in 2 weeks, follow-up with nephrology in 1-2 weeks Referrals: Suresh Mendoza MD [Partnered Physician] - 07/10/16 9:45 am (Please arrive at 9: 30 am) Billy Antonio MD [Partnered Physician] - 08/02/16 11:15 am Darek Stratton MD [Partnered Physician] - 07/12/16 11:00 am Tu Macdonald DO [Non-Partnered Physician] - 07/09/16 3:30 pm Prescriptions: Benzonatate [Tessalon] 200 mg PO TID PRN #30 capsule PRN Reason: Cough Budesonide/Formoterol 160/4.5 [Symbicort 160/4.5] 2 puff IH BIDR #1 inhaler Furosemide [Lasix] 40 mg PO DAILY #30 tablet Guaifenesin [Guaifenesin ER] 1,200 mg PO BID PRN #20 tab.er.12h PRN Reason: Congestion HYDROcodone/Acet 5/325 mg [[place] 5-325 mg] 1 tab PO Q6H PRN #20 tablet PRN Reason: Pain Metoprolol [Lopressor] 75 mg PO BID #90 tablet NIFEdipine XL (24 HR) [Procardia XL] 60 mg PO DAILY #30 tab.er.24 Silvasorb 1 appl TP DAILY #1 tube
[2016-07-04] MEDS: *HR* HYDROcodone/Acet 5/325 mg TABLET PO PRN ×2 (11:44→21:21)
--- NOTE | 2016-07-04 14:46 | Event Note ---
Date of Encounter: 07/04/16 Time of Encounter: 14:[address] revealing chronic granulomatous disease with small to moderate bilateral pleural effusions and lower lobe atelectasis/infection bilaterally. Left upper lobe also with densely consolidated lung parenchyma. In review of her chart, it does not appear as if this patient has ever been seen by supervisor cytogenetic laboratory to address her granulomatous disease. Pulmonology brought on board at this time as the patient stating her shortness of breath is getting worse even though her pedal edema and signs of fluid overload have improved. She is tolerating room air but she continues to endorse 5 pillow orthopnea at night. Patient's main complaint today is chest and facial congestion. She states she feels as if she is "drowning." Of note, she stopped smoking a few days prior to this admission, but had only smoked 1/2 PPD for only one year. Appreciate pulmonology recommendations. ITS Impressions Chest CT 07/04/16 13:30 IMPRESSION: 1. Calcified bilateral pulmonary nodules secondary to remote granulomatous disease. 2. Borderline cardiomegaly with small to borderline enlarged mediastinal and hilar lymph nodes potentially the result of noncalcified granulomatous origin. 3. Small to moderate bilateral pleural effusions with lower lobe atelectasis or infection. This most affects the left lower lobe with densely consolidated lung parenchyma. Follow-up examinations until clear recommended. D/ : / 07/04/2016 11:25:41 Vimal Nielsen MD / [facility] Interpreting Provider: Vimal Nielsen MD
--- NOTE | 2016-07-04 17:57 | Pulmonology Consult Note ---
Date of Encounter: 07/04/16 Time of Encounter: 16:15 Assessment and Plan (1) Acute bronchitis with asthma Current Visit: Yes Status: Acute Patient has history of asthma and added Symbicort. I am reluctant to add systemic steroid due to her underlying diabetes and also cellulitis, however if she does not improve she will need systemic steroid. I have explained to the patient she will need outpatient follow-up and hopefully to any smoking. (2) ARASELI (obstructive sleep apnea) Current Visit: Yes Status: Chronic She will need outpatient sleep study done and that can be arranged when she is discharged home. (3) Pleural effusion, bilateral Current Visit: Yes Status: Acute Assessment this is a transudate from underlying kidney disease and possible cardiac. Agree with diuresis and if she does not improve, consider thoracentesis. (4) Atelectasis of left lung Current Visit: Yes Status: Chronic This is chronic in nature I suspect from her morbid obesity and also pleural effusion. However due to risk factors smoking she will need to follow-up images in 2-3 months and if she does not improve, she will need airway inspection to rule out any endobronchial obstruction and that can be done as outpatient as well. (5) Granulomatous lung disease Current Visit: Yes Status: Acute (6) Morbid obesity Current Visit: Yes Status: Chronic Weight loss recommended Qualifiers: Obesity type: unspecified obesity type Qualified Code(s): E66.01 - Morbid ( severe) obesity due to excess calories History of Present Illness Consult date: 07/04/16 Requesting physician: Archana Gutierres Reason for consult: dyspnea Chief complaint: Shortness of breath History of present illness: This is a pleasant 56-year-old female with multiple medical problems presented to the hospital complaining of shortness of breath and bronchitis. Patient has history of asthma and also she has history of chronic kidney disease. Patient stated she had bronchitis in the past but she is nonpitting on any inhaled corticosteroids or previous asthma. She also has history of smoking about a pack which lasted for about 4 days. She does have productive cough, wheezing, dyspnea with white sputum which is increased from her baseline, but denies any hemoptysis. She denies any history of tuberculosis. Patient gained about 20 pounds in the past month. CT chest was done which was abnormal and pulmonary was consulted. There is also history of snoring and daytime fatigue with past history of possibility of sleep apnea. Past Med Surg Social Fam HX - Past Medical History Medical history: arthritis, asthma, CHF, CVA, diabetes, hyperlipidemia, hypertension, myocardial infarction, renal disease, other (Diabetic foot wound) Psychiatric history: anxiety, depression - Past Surgical History Surgical History: , orthopedic, other - Social History Smoking Status: Current every day smoker Smokeless Tobacco Status: No Alcohol use: none Drug use: none - Family History Mother Living Status: Hx Family Cardiac Disorders: Yes Hx Family Respiratory Disorders: Yes (Asthma) Hx Family Cancer: Yes (Lung Cancer(mother)) Hx Family GI Disorders: No Hx Family Endocrine Disorder: No Hx Family Neuromuscular Disorders: No Hx Family Neurologic Disorders: No Hx Family HEENT Disorders: No Hx Family Autoimmune Disorders: No Father Living Status: Hx Family Cardiac Disorders: Yes Hx Family Respiratory Disorders: Yes (lung cancer) Hx Family Cancer: Yes (lung cancer) Hx Family Endocrine Disorder: Yes (diabetes,) Medications and Allergies Aspirin Enteric Coated [Aspirin EC] 81 mg PO DAILY 04/08/15 [History] Furosemide [Lasix] 40 mg PO BID 04/08/15 [History] Insulin Glargine,Hum.rec.anlog [Lantus Solostar] 40 unit SQ BID 04/08/15 [ History] Multivitamin [Multi-Day Vitamins] 1 tab PO DAILY 04/08/15 [History] Simvastatin [Zocor] 40 mg PO DAILY 04/08/15 [History] Omeprazole [PriLOSEC] 20 mg PO DAILY 12/06/15 [History] Alprazolam [Xanax 0.5 MG Tablet] 0.5 mg PO TID PRN 06/27/16 [History] Atenolol [Atenolol] 100 mg PO DAILY 06/27/16 [History] Collagenase Oint [Santyl] 1 appl TP BID 06/27/16 [History] Hydrochlorothiazide 25 mg PO DAILY 06/27/16 [History] Insulin ASPART [Novolog Flexpen] 20 unit SQ TIDAC 06/27/16 [History] Nystatin [Nyamyc] 1 appl TP BID 06/27/16 [History] Tizanidine HCl 2 mg PO TID PRN 06/27/16 [History] Allergies amlodipine Allergy (Verified 06/29/16 14:41) See Comments Amoxicillin [From Augmentin] Allergy (Verified 06/27/16 18:47) Itching clavulanic acid [From Augmentin] Allergy (Verified 06/27/16 18:47) Itching CAROLYN Inhibitors Adverse Reaction (Verified 06/27/16 18:47) Palpitations fenofibrate [From Tricor] Adverse Reaction (Verified 06/27/16 18:47) Drowsy vancomycin Adverse Reaction (Verified 06/27/16 22:42) See Comments "made my chest feel real funny" All Systems: A 10-system review of systems was performed and is negative for pertinent findings except as documented above in the HPI. Physical Examination Vital Signs: Vital Signs, Last 4 Hours Temp Pulse Resp BP Pulse Ox 07/04/16 15:49 18 97 07/04/16 15:44 97.5 F L 84 20 129/78 96 General appearance: no acute distress, other (Obese mainly abdominal area) Eyes: nonicteric ENT: oropharynx moist Neck: supple Effort: normal Inspection: other (Small chest comparing to the abdominal area) Auscultation: bilateral: diminished breath sounds, rhonchi Percussion: bilateral: not dull Cardiovascular: regular rate and rhythm Gastrointestinal: normoactive bowel sounds, soft Extremities: edema normal mental status, non-focal exam mood appropriate Results - Laboratory Findings CBC and BMP: 07/04/16 03:56 07/04/16 03:56 Abnormal lab findings: Abnormal lab results RBC 3.46 M/mcL (3.82-4.97) L 07/04/16 03:56 Hgb 9.3 g/dL (11.5-15.4) L 07/04/16 03:56 Hct 30.0 % (35.3-44.9) L 07/04/16 03:56 MCH 26.9 pg (28.0-33.3) L 07/04/16 03:56 MCHC 31.0 g/dL (31.6-35.5) L 07/04/16 03:56 Chloride 110 mEq/L (98-109) H 07/04/16 03:56 BUN 33 mg/dL (7-20) H 07/04/16 03:56 Creatinine 2.82 mg/dL (0.57-1.11) H 07/04/16 03:56 Est GFR ( Amer) 21 (> 60) L 07/04/16 03:56 Est GFR (Non-Af Amer) 17 (> 60) L 07/04/16 03:56 Glucose 126 mg/dL (70-99) H 07/04/16 03:56 POC Glucose 110 (58-89) H 07/04/16 15:41 Hemoglobin A1c 12.2 % (-5.6) H 06/28/16 03:21 Calculated Osmolality 307 (280-300) H 07/04/16 03:56 Uric Acid 6.4 mg/dL (2.6-6.0) H 06/28/16 13:51 Iron 20 mcg/dL (50-170) L 06/30/16 03:44 Transferrin 95 mg/dL (180-382) L 06/30/16 03:44 Creatine Kinase 184 U/L (20-180) H 06/28/16 03:21 B-Natriuretic Peptide 1295 pg/mL (0-100) H 06/29/16 03:42 Urine Protein >=1000 mg/dL (Neg-Trace) H 06/27/16 22:44 Urine Glucose (UA) >=1000 mg/dL (Normal) H 06/27/16 22:44 Urine Blood Trace (Negative) H 06/27/16 22:44 Urine Microscopic RBC 5-15 per hpf (0-3) H 06/27/16 22:44 Urine Microscopic WBC 3-5 per hpf (0-3) H 06/27/16 22:44 Ur Squamous Epith Cells Many per lpf (None-Few) H 06/27/16 22:44 - Diagnostic Findings CT scan - chest: report reviewed, image reviewed - Clinical Findings Intake & Output: Intake & Output 07/04/16 07/04/16 07/04/16 07:59 15:59 23:59 Intake Total 340 / 340 Output Total 500 / 500 Balance -500 / -500 340 / 340 Consult Discharge Plan - Plan Referrals: Marcella Sylvester CNP [Primary Care Provider] - 07/06/16 10:30 am Tu Macdonald DO [Non-Partnered Physician] - 07/09/16 3:30 pm
[2016-07-04] MEDS: Budesonide/Formoterol 160/4.5 MDI IH SCH (20:02)
[2016-07-04] MEDS: Insulin DETEMIR 100 UNIT/ML X5UNITS SQ SCH (21:18)
[2016-07-04] MEDS: traZODone 50 MG TABLET PO SCH (21:18)
[2016-07-04] MEDS: Silvasorb 44.4 ML TUBE TP SCH (21:24)
[2016-07-05] MEDS: *HR* Heparin 5,000 UNIT/ML VIAL SQ SCH ×2 (00:20→06:25)
[2016-07-05] MEDS: hydrALAZINE 25 MG TABLET PO SCH ×3 (00:20→12:46)
[2016-07-05] MEDS: Acetylcysteine 10% 2 ML INHSOL IH SCH ×3 (03:34→10:58)
[2016-07-05] MEDS: Ipratropium/Albuterol Neb 3 ML IH SCH ×3 (03:34→10:58)
[2016-07-05 05:19] LABS: Basophils % 0.4 %; Eosinophils # 0.1 K/mcL (0.0-0.6); Hematocrit 29.1 % (35.3-44.9); Hemoglobin 9.1 g/dL (11.5-15.4); Immature Granulocytes % 0.2 % (0-4); Lymphocytes % 37.6 %; Mean Corpuscular HGB Conc 31.3 g/dL (31.6-35.5); Mean Corpuscular Hemoglobin 27.2 pg (28.0-33.3); Mean Corpuscular Volume 86.9 fL (83.0-100.0); Mean Platelet Volume 10.6 fL (9.4-12.4); Monocytes # 0.4 K/mcL (0.0-1.3); Monocytes % 6.5 %; Neutrophils # 2.9 K/mcL (1.6-8.9); Platelet Count 199 K/mcL (140-400); Red Blood Count 3.35 M/mcL (3.82-4.97); Red Cell Distribution Width 14.1 % (11.5-14.5); Segmented Neutrophils % 53.3 %
[2016-07-05] MEDS ORDERED: Ondansetron ODT 4 MG TAB.RAPDIS SL PRN (05:28)
[2016-07-05 05:57] LABS: Potassium 3.7 mEq/L (3.5-4.5)
[2016-07-05] MEDS: Budesonide/Formoterol 160/4.5 MDI IH SCH (07:40)
[2016-07-05] MEDS: Insulin LISPRO 300 UNITS/3 ML VIAL SQ SCH ×4 (09:21→12:41)
[2016-07-05] MEDS: Furosemide 40 MG TABLET PO SCH (09:22)
[2016-07-05] MEDS: Aspirin Enteric Coated 81 MG Tablet PO SCH (09:22)
[2016-07-05] MEDS: Famotidine 20 MG TABLET PO SCH (09:23)
[2016-07-05] MEDS: Silvasorb 44.4 ML TUBE TP SCH (09:23)
[2016-07-05] MEDS: Benzonatate 100 MG CAPSULE PO SCH (09:23)
[2016-07-05] MEDS: NIFEdipine XL (24 HR) 60 MG TAB.ER.24 PO SCH (09:23)
[2016-07-05] MEDS: Azithromycin 250 MG TABLET PO SCH (09:24)
[2016-07-05 11:45] VITALS: BP 162/93
[2016-07-05] MEDS: *HR* HYDROcodone/Acet 5/325 mg TABLET PO PRN (12:46)
--- NOTE | 2016-07-05 13:28 | Discharge Summary ---
Date of Encounter: 07/05/16 Time of Encounter: 09:30 - Discharge Diagnosis (1) Acute exacerbation of congestive heart failure Priority: Primary Status: Acute Comments: Patient stating her shortness of breath had returned to its normal by day of discharge. We will continue her Lasix upon discharge. Recommend close outpatient follow-up. 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 Initially on in her admission, her diuretics were held due to acute kidney injury superimposed on chronic kidney disease stage IV. Lasix by mouth 40 mg daily has been restarted and she is tolerating it well. Renal function stable/slightly decreased overnight. Attempted to talk to the patient about fluid and sodium restricted diets however she was not receptive to education. Continue fluid and sodium restricted diets with daily weights and strict I's and O's. Patient denies shortness of breath above her normal however is still endorsing a persistent dry cough. Her biggest complaint this am is that her face and chest are now congested. Scheduled Tessalon Pearles with Codeine for breakthrough coughing started yesterday and her cough has improved slightly. Repeat CXR consistent with vascular congestion- would like to increase lasix dosage, but her renal functioning decreased slightly overnight - will appreciate Nephrology's input. Nodules also noted on CXR- will obtain chest CT (without contrast). Nonpitting pedal edema noted. Regarding plan of care, possible discharge tomorrow pending clinical outcomes. ITS Impressions Chest X-Ray 07/04/16 07:45 IMPRESSION: Pulmonary vascular congestion, increased consolidation right lung base. Additionally, there are bilateral lung nodules. Although these are stable since the earliest chest x-ray performed 12/10/2015 and could be granulomas, consider CT chest for further evaluation, especially if there is history of malignancy or concern for metastatic disease. The findings were sent to the Radiology Results Communication [facility] at 9:26 am on 07/04/2016to be communicated to a licensed caregiver. D/ / 07/04/2016 09:31:37 Letty Dominguez MD / Neet[facility] Gutiérrez Interpreting Provider: Letty Dominguez MD (2) Acute kidney injury superimposed on chronic kidney disease Priority: Primary Status: Acute Comments: Remained stable throughout this admission and she did not require dialysis. Nephrology was on board during this admission, recommended close outpatient follow-up. (3) Acute respiratory failure Priority: Primary Status: Resolved Comments: Tolerated room air prior to discharge. Recommend close outpatient follow-up and recommend outpatient sleep study. Patient stating she has not had a sleep study and nearly 20 years. Qualifiers: Respiratory failure complication: hypoxia Qualified Code(s): J96.01 - Acute respiratory failure with hypoxia (4) Hyperkalemia Priority: Primary Status: Resolved (5) Anemia Priority: Secondary Status: Chronic Comments: Chronic and stable. Likely ACD; iron levels low. B12 and folate normal. Follow-up closely outpatient. Qualifiers: Anemia type: other cause Other causes of anemia: other cause, not classified Qualified Code(s): D64.89 - Other specified anemias (6) DVT prophylaxis Priority: Primary Status: Acute Comments: Subcutaneous heparin while admitted (7) Foot ulcer due to secondary DM Priority: Secondary Status: Chronic Comments: Chronic. Followed by the wound clinic for at least 4 years. On examination, ulcers to her right foot are chronic without acute erythema, edema, induration or fluctuance. No signs of an abscess or acute processes. Continue with daily wound care and followup outpatient with wound clinic. (8) Tobacco abuse Priority: Secondary Status: Chronic Comments: Encouraged cessation. Patient states she stopped smoking 2 days prior to presentation. Prior to that, she smoked 1 pack every 3-4 days for approximately one year. (9) Diabetes Priority: Secondary Status: Chronic Comments: Uncontrolled, A1c 12.2%. Patient not receptive to teaching. Informed patient that as her diabetes continues to be uncontrolled, she is at highly elevated risk of renal failure leading to dialysis as well as worsening of her foot and hand ulcers leading to amputation. Patient still resistant to teaching- DM educator onboard while admitted- recommend following up with them outpatient. Poor insight. Qualifiers: Diabetes mellitus type: type 2 Diabetes mellitus complication status: with neurologic complications Diabetes mellitus complication detail: with polyneuropathy Diabetes mellitus residential insulin use: with residential use Qualified Code(s): E11.42 - Type 2 diabetes mellitus with diabetic polyneuropathy; Z79.4 - senior living (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 (10) Hypertension Priority: Secondary Status: Chronic Comments: Several changes to her medications were made during this visit. Hydralazine was added and Lopressor dosage was increased. Nifedipine and Lasix were continued. Recommend daily blood pressure checks at home, keeping a log, and follow-up closely outpatient (11) Morbid obesity with BMI of 45.0-49.9, adult Priority: Secondary Status: Chronic (12) Blurred vision, right eye Priority: Primary Status: Acute Comments: Spoke to Pearl Restorer Dr Macdonald who will see the patient immediately upon her discharge. 07/03/16 Acute onset yesterday, will bring ophthalmology on board. Dr. Macdonald. Patient is stating she has had a couple surgeries on her eyes over the past year with her most recent one being last month. She states her eye doctor had informed her that they were surprised she still had vision according to the patient. She does state that the surgery was done here in [place] per a doctor Aleksey- unable to find this provider. (13) Lack of insight Priority: Secondary Status: Chronic (14) Granulomatous lung disease Priority: Secondary Status: Chronic - Discharge Medications Prescriptions: Benzonatate [Tessalon] 200 mg PO TID PRN #30 capsule PRN Reason: Cough Budesonide/Formoterol 160/4.5 [Symbicort 160/4.5] 2 puff IH BIDR #1 inhaler Furosemide [Lasix] 40 mg PO DAILY #30 tablet Guaifenesin [Guaifenesin ER] 1,200 mg PO BID PRN #20 tab.er.12h PRN Reason: Congestion HYDROcodone/Acet 5/325 mg [[place] 5-325 mg] 1 tab PO Q6H PRN #20 tablet PRN Reason: Pain Metoprolol [Lopressor] 75 mg PO BID #90 tablet NIFEdipine XL (24 HR) [Procardia XL] 60 mg PO DAILY #30 tab.er.24 Silvasorb 1 appl TP DAILY #1 tube Home Medications: Aspirin Enteric Coated [Aspirin EC] 81 mg PO DAILY 04/08/15 [History] Insulin Glargine,Hum.rec.anlog [Lantus Solostar] 40 unit SQ BID 04/08/15 [ History] Multivitamin [Multi-Day Vitamins] 1 tab PO DAILY 04/08/15 [History] Simvastatin [Zocor] 40 mg PO DAILY 04/08/15 [History] Omeprazole [PriLOSEC] 20 mg PO DAILY 12/06/15 [History] Alprazolam [Xanax 0.5 MG Tablet] 0.5 mg PO TID PRN 06/27/16 [History] Collagenase Oint [Santyl] 1 appl TP BID 06/27/16 [History] Hydrochlorothiazide 25 mg PO DAILY 06/27/16 [History] Insulin ASPART [Novolog Flexpen] 20 unit SQ TIDAC 06/27/16 [History] Nystatin [Nyamyc] 1 appl TP BID 06/27/16 [History] Tizanidine HCl 2 mg PO TID PRN 06/27/16 [History] Benzonatate [Tessalon] 200 mg PO TID PRN #30 capsule 07/05/16 [Rx] Budesonide/Formoterol 160/4.5 [Symbicort 160/4.5] 2 puff IH BIDR #1 inhaler [Rx] Furosemide [Lasix] 40 mg PO DAILY #30 tablet 07/05/16 [Rx] Guaifenesin [Guaifenesin ER] 1,200 mg PO BID PRN #20 tab.er.12h 07/05/16 [Rx] HYDROcodone/Acet 5/325 mg [[place] 5-325 mg] 1 tab PO Q6H PRN #20 tablet 07/05/16 [Rx] Metoprolol [Lopressor] 75 mg PO BID #90 tablet 07/05/16 [Rx] NIFEdipine XL (24 HR) [Procardia XL] 60 mg PO DAILY #30 tab.er.24 07/05/16 [Rx] Silvasorb 1 appl TP DAILY #1 tube 07/05/16 [Rx] Allergies/Adverse Reactions: Allergies amlodipine Allergy (Verified 06/29/16 14:41) See Comments Amoxicillin [From Augmentin] Allergy (Verified 06/27/16 18:47) Itching clavulanic acid [From Augmentin] Allergy (Verified 06/27/16 18:47) Itching CAROLYN Inhibitors Adverse Reaction (Verified 06/27/16 18:47) Palpitations fenofibrate [From Tricor] Adverse Reaction (Verified 06/27/16 18:47) Drowsy vancomycin Adverse Reaction (Verified 06/27/16 22:42) See Comments "made my chest feel real funny" Procedures/tests Complete & Pending: Procedures Performed prior 72 hours Category Date Time Status CT chest w/o contrast [CT chest wo con] [CT] Routine Cat Scan 07/04/16 13:30 Draft Date of admission: 06/28/16 01:16 Primary care physician: Marcella Sylvester CNP Consults: 06/28/16 07:04 Consult to Wound Care [CONS] Routine Reason for Consult: Wounds to right foot Call Completed: No 06/28/16 09:13 Consult to Nephrology [CONS] Routine Consulting Provider: Jermain Delacruz Reason for Consult: needs diuresed. CKD4 with RENETTA Time Notified: 09:13 Call Completed: Yes 07/02/16 09:39 Consult to Resource Recovery Engineer [CONS] Routine Comment: patient requested to receive education 07/03/16 10:27 Consult to Physician [CONS] Routine Consulting Provider: Tu Macdonald Reason for Consult: New onset blurred vision to right eye. Patient endorsing hx of 2 eye surgeries in last year for "cataracts". Noncompliant DM, uncontrolled BP , noncomplaint CHF. Time Notified: 10:31 Call Completed: Yes 07/03/16 11:42 Consult to Jumpbasting Armhole Baster [CONS] Routine Reason for SW Consult: Home needs 07/04/16 14:38 Consult to Pulmonology [CONS] Routine Consulting Provider: [facility] Sleep Tresa Reason for Consult: Worsening SOB; chest CT with granulomatous, sm to mod bilat pleural effusions with LL atelectasis/infection. Has never seen bicycle service technician. Called Dr Antonio. Time Notified: 14:39 Call Completed: Yes Discharging clinician: Archana Gutierres Anticipated date of discharge: 07/05/16 (close outpt F/U; no needs per OT/PT) - Patient Status Disposition: Home, Self-Care Condition: Fair Functional capacity at discharge: independent ambulation Overall status at discharge: patient is back to baseline - Discharge Instructions Follow Up With: Suresh Mendoza MD [Partnered Physician] - 07/10/16 9:45 am (Please arrive at 9: 30 am) Marcella Sylvester CNP [Primary Care Provider] - 07/12/16 2:00 pm Tu Macdonald, [Non-Partnered Physician] - 07/09/16 3:30 pm Darek Stratton MD [Partnered Physician] - Billy Antonio MD [Partnered Physician] - Forms: Work/School Release Additional Instructions: Follow-up with primary care providers as scheduled, follow-up with ophthalmology as scheduled, follow-up with pulmonology in 2 weeks, follow-up with nephrology in 1-2 weeks - Diet and Activity Activity: increase activity as tolerated Diet: diabetic diet, low fat, low cholesterol, low salt diet, other (fluid restriction 1500ml/day max) Hospital course: Ms. Frederick is a 56 year old female with extensive past medical history including combined heart failure with ejection fraction of 30-35%, CVA, diabetes , uncontrolled, hyperlipidemia, hypertension, prior IA, chronic kidney disease stage IV, morbid obesity with BMI of nearly 48. Patient presented to the emergency room part chief complaint shortness of breath 4 days associated with 5 pillow orthopnea and increased bilateral lower extremity swelling. Patient stating she has gained 20 pounds in the last month. Patient stating she has been compliant with her home dose of Lasix at 40 mg twice a day but she also endorses, noncompliant with several for other medications as well as dietary and fluid restrictions. Patient also endorsed a productive cough and increased sputum production when compared to her baseline. Regarding tobacco abuse, patient started smoking approximately 1 year ago and smokes 1 pack every 4 days or so and she states that she stopped 2 days prior to this presentation. Workup in the emergency department consistent with acute kidney injury superimposed on chronic kidney disease stage IV and signs of fluid overload. Chest x-ray revealing small bilateral pleural effusions. Patient was admitted to the hospitalist service for further evaluation and management. Her blood pressure was difficult to control during this admission. Hydralazine was added to her regimen and her Lopressor dosage was increased. Her nifedipine and Lasix were also continued. Her A1c is 12.2% and she was seen by coal chemist during this admission however patient lacks insight and motivation to improve her health. She was gently diuresed and nephrology was on board during this admission. She did not require dialysis. Patient's shortness of breath slowly improved and her lower extremity edema improved as well. Overall, patient was admitted and observed over the course of 8 days. She initially required supplemental oxygenation but by the time she was ready to be released, she was tolerating room air. Patient continued with orthopnea and strong recommendation for outpatient sleep study in the near future. She was also seen by pulmonology during this visit due to repeat chest x-ray revealing chronic granulomatous disease. Pulmonology added Symbicort to her regimen and also recommended an outpatient sleep study. She will follow-up with pulmonology outpatient. There is no indication for a thoracentesis during this admission. We continually attempted to educate patient on fluid and sodium were shifted diets as well as with her diabetes but she was not receptive to teaching. While admitted, patient developed third vision to her right eye. Spoke to Pearl Restorer Dr Macdonald who will see the patient immediately upon her discharge. Patient stating she has had a couple surgeries on her eyes over the past year with her most recent one being last month. She was seen and evaluated by occupational and physical therapy both of whom surmise she had no needs. During this visit, nephrology was consulted, coal chemist, pulmonology, ophthalmology, wound, OT and PT and social media campaign manager were all on board during this admission for a multidisciplinary approach. Overall, she was successfully diuresed and was discharged home in stable condition with close outpatient follow-up recommended. ITS Impressions Chest X-Ray 06/27/16 18:47 IMPRESSION: New small bilateral pleural effusions larger on the left. D/ / 06/27/2016 19:08:01 David Catherine MD / [facility] Interpreting Provider: David Catherine MD Retroperitoneum Ultrasound 06/28/16 18:00 IMPRESSION: Unremarkable sonographic appearance of the kidneys. Postvoid residual within the urinary bladder as described above. D/ / Myron Lowe MD / Myron Lowe MD Interpreting Provider: Myron Lowe MD Chest X-Ray 06/29/16 15:25 IMPRESSION: 1. Hazy opacities in both lung bases, greater on the left, suspicious for pleural effusion with partial atelectasis or pneumonia. D/ / Jono Pastrana MD / Jono Pastrana MD Interpreting Provider: Jono Pastrana MD Chest X-Ray 07/04/16 07:45 IMPRESSION: Pulmonary vascular congestion, increased consolidation right lung base. Additionally, there are bilateral lung nodules. Although these are stable since the earliest chest x-ray performed 12/10/2015 and could be granulomas, consider CT chest for further evaluation, especially if there is history of malignancy or concern for metastatic disease. The findings were sent to the Radiology Results Communication Center at 9:26 am on 07/04/2016to be communicated to a licensed caregiver. D/ / 07/04/2016 09:31:37 Letty Dominguez MD / Neetu Gutiérrez Interpreting Provider: Letty Dominguez MD Chest CT 07/04/16 13:30 IMPRESSION: 1. Calcified bilateral pulmonary nodules secondary to remote granulomatous disease. 2. Borderline cardiomegaly with small to borderline enlarged mediastinal and hilar lymph nodes potentially the result of noncalcified granulomatous origin. 3. Small to moderate bilateral pleural effusions with lower lobe atelectasis or infection. This most affects the left lower lobe with densely consolidated lung parenchyma. Follow-up examinations until clear recommended. D/ / 07/04/2016 11:25:41 Vimal Nielsen MD / [facility] Interpreting Provider: Vimal Nielsen MD - Time Spent with Patient Total time spent providing and/or coordinating discharge services: Greater than 30 minutes - Constitutional Vitals: Temp Pulse Resp BP Pulse Ox 98.1 F 76 18 162/93 95 07/05/16 11:39 07/05/16 11:39 07/05/16 11:39 07/05/16 11:39 07/05/16 11:39 General appearance: Present: A&O X 3, morbidly obese, pleasant, no acute distress, answers questions appropriately - Head Head exam: Present: atraumatic, normocephalic - Eye Eye exam: Present: PERRL, conjuntiva pink, sclera anicteric Pupils: Present: PERRL - Neck Neck exam general surgery: Present: supple, trachea midline. Absent: lymphadenopathy - Respiratory Respiratory exam: Present: decreased breath sounds. Absent: accessory muscle use, rales, respiratory distress, rhonchi, wheezes - Cardiovascular Cardiovascular exam: Present: RRR, +S1, +S2. Absent: diastolic murmur, gallop, rubs, systolic murmur - GI/Abdominal GI/Abdominal exam: Present: normal bowel sounds, soft, no peritoneal signs. Absent: distended, tenderness - Extremities Exam Extremities exam: Present: pedal edema, warm, radial pulses palpable and symetrical. Absent: calf tenderness, cyanotic - Neurological Exam Neurological exam: Present: alert, CN II-XII intact, oriented X3, no focal deficits, strengths equal and symetr throughout. Absent: pronater drift, facial droop, speech deficit - Skin Skin exam: Present: dry, intact, normal color, warm
--- NOTE | 2016-07-05 17:24 | Pulmonology Progress Note ---
Date of Encounter: 07/05/16 Time of Encounter: 08:00 Assessment and Plan (1) Acute bronchitis with asthma Status: Acute Patient was started on Symbicort and to follow up as outpatient. Discussed with primary team. (2) ARASELI (obstructive sleep apnea) Status: Chronic Need sleep study as outpatient. (3) Pleural effusion, bilateral Status: Acute Monitor and need follow up CT as outpatient (4) Atelectasis of left lung Status: Chronic (5) Granulomatous lung disease Status: Chronic (6) Morbid obesity Status: Chronic Qualifiers: Obesity type: unspecified obesity type Qualified Code(s): E66.01 - Morbid ( severe) obesity due to excess calories Subjective Principal diagnosis: Dyspnea Interval history: Patient had some dizziness which is resolved Objective PUL Vital signs: Last Vital Signs Temp 98.1 F 07/05/16 11:39 Pulse 76 07/05/16 11:39 Resp 18 07/05/16 11:39 BP 162/93 07/05/16 11:39 Pulse Ox 95 07/05/16 11:39 General appearance: no acute distress Eyes: nonicteric Mallampati (class): 3 Neck: supple Effort: normal Auscultation: bilateral: diminished breath sounds Percussion: left: dull, right: not dull Cardiovascular: regular rate and rhythm Gastrointestinal: normoactive bowel sounds, soft Extremities: edema normal mental status, non-focal exam mood appropriate Results - Laboratory Findings CBC and BMP: 07/05/16 04:00 07/05/16 04:00 Abnormal lab findings: Abnormal lab results RBC 3.35 M/mcL (3.82-4.97) L 07/05/16 04:00 Hgb 9.1 g/dL (11.5-15.4) L 07/05/16 04:00 Hct 29.1 % (35.3-44.9) L 07/05/16 04:00 MCH 27.2 pg (28.0-33.3) L 07/05/16 04:00 MCHC 31.3 g/dL (31.6-35.5) L 07/05/16 04:00 Chloride 110 mEq/L (98-109) H 07/05/16 04:00 BUN 32 mg/dL (7-20) H 07/05/16 04:00 Creatinine 2.75 mg/dL (0.57-1.11) H 07/05/16 04:00 Est GFR ( Amer) 22 (> 60) L 07/05/16 04:00 Est GFR (Non-Af Amer) 18 (> 60) L 07/05/16 04:00 Glucose 136 mg/dL (70-99) H 07/05/16 04:00 POC Glucose 111 (58-89) H 07/05/16 11:43 Hemoglobin A1c 12.2 % (-5.6) H 06/28/16 03:21 Calculated Osmolality 303 (280-300) H 07/05/16 04:00 Uric Acid 6.4 mg/dL (2.6-6.0) H 06/28/16 13:51 Iron 20 mcg/dL (50-170) L 06/30/16 03:44 Transferrin 95 mg/dL (180-382) L 06/30/16 03:44 Creatine Kinase 184 U/L (20-180) H 06/28/16 03:21 B-Natriuretic Peptide 1295 pg/mL (0-100) H 06/29/16 03:42 Urine Protein >=1000 mg/dL (Neg-Trace) H 06/27/16 22:44 Urine Glucose (UA) >=1000 mg/dL (Normal) H 06/27/16 22:44 Urine Blood Trace (Negative) H 06/27/16 22:44 Urine Microscopic RBC 5-15 per hpf (0-3) H 06/27/16 22:44 Urine Microscopic WBC 3-5 per hpf (0-3) H 06/27/16 22:44 Ur Squamous Epith Cells Many per lpf (None-Few) H 06/27/16 22:44 Consult Discharge Plan - Plan Instructions: Benzonatate (By mouth), Metoprolol (By mouth), Nifedipine (By mouth), Furosemide (By mouth), Hydrocodone/Acetaminophen (By mouth), Guaifenesin (By mouth), Budesonide/Formoterol (By breathing), Heart Failure (DC) Additional Instructions: Follow-up with primary care providers as scheduled, follow-up with ophthalmology as scheduled, follow-up with pulmonology in 2 weeks, follow-up with nephrology in 1-2 weeks Referrals: Suresh Mendoza MD [Partnered Physician] - 07/10/16 9:45 am (Please arrive at 9: 30 am) Billy Antonio MD [Partnered Physician] - 08/02/16 11:15 am Darek Stratton MD [Partnered Physician] - 07/12/16 11:00 am Tu Macdonald DO [Non-Partnered Physician] - 07/09/16 3:30 pm Prescriptions: Benzonatate [Tessalon] 200 mg PO TID PRN #30 capsule PRN Reason: Cough Budesonide/Formoterol 160/4.5 [Symbicort 160/4.5] 2 puff IH BIDR #1 inhaler Furosemide [Lasix] 40 mg PO DAILY #30 tablet Guaifenesin [Guaifenesin ER] 1,200 mg PO BID PRN #20 tab.er.12h PRN Reason: Congestion HYDROcodone/Acet 5/325 mg [[place] 5-325 mg] 1 tab PO Q6H PRN #20 tablet PRN Reason: Pain Metoprolol [Lopressor] 75 mg PO BID #90 tablet NIFEdipine XL (24 HR) [Procardia XL] 60 mg PO DAILY #30 tab.er.24 Silvasorb 1 appl TP DAILY #1 tube
== END 2016-07-05 16:10 | disposition home or self-care (01) | DRG 194 ==
LOC: EMEROO 18:24 → 3BNU 18:24 → SUATTDRO 06-28 01:16
PROVIDERS: ADMIT Nurse Practitioner Family; ATTEND Nurse Practitioner Family

== ENCOUNTER 2017-02-24 22:35 | Inpatient (IN) ==
[2017-02-24 23:55] LABS: Basophils % 0.3 %; Eosinophils # 0.1 K/mcL (0.0-0.6); Eosinophils % 0.5 %; Hematocrit 29.5 % (35.3-44.9); Hemoglobin 9.2 g/dL (11.5-15.4); Immature Granulocytes % 0.8 % (0-4); Lymphocytes # 1.6 K/mcL (0.6-4.6); Lymphocytes % 11.6 %; Mean Corpuscular HGB Conc 31.2 g/dL (31.6-35.5); Mean Corpuscular Hemoglobin 27.3 pg (28.0-33.3); Mean Corpuscular Volume 87.5 fL (83.0-100.0); Mean Platelet Volume 10.4 fL (9.4-12.4); Monocytes # 0.7 K/mcL (0.0-1.3); Monocytes % 5.5 %; Neutrophils # 10.9 K/mcL (1.6-8.9); Platelet Count 247 K/mcL (140-400); Red Blood Count 3.37 M/mcL (3.82-4.97); Red Cell Distribution Width 15.5 % (11.5-14.5); Segmented Neutrophils % 81.3 %
[2017-02-25 00:08] LABS: Calcium 8.5 mg/dL (8.6-10.8); Potassium 5.4 mEq/L (3.5-4.5)
[2017-02-25] MEDS ORDERED: *HR* Heparin 5,000 UNIT/ML VIAL IVP ONE (01:52)
[2017-02-25] MEDS ORDERED: *HR* Heparin 5,000 UNIT/ML VIAL IVP PRN ×2 (01:52)
[2017-02-25] MEDS ORDERED: Aspirin 81 MG TAB.CHEW PO ONE (01:52)
--- NOTE | 2017-02-25 02:19 | Emergency Department Note ---
Disposition Clinical Impression: Dyspnea, NSTEMI (non-ST elevated myocardial infarction) Disposition: Admitted As Inpatient Condition: Good General Adult HPI - General Chief complaint: ED Chest Pain Stated complaint: "Think I'm gettin' pneumonia again" Time Seen by Provider: 02/24/17 22:46 Source: patient Limitations: no limitations Nursing Notes Reviewed: Yes Vital Signs Reviewed: Yes - History of Present Illness HPI Narrative: 56-year-old female presents to emergency department with increasing dyspnea. Patient states that her symptoms have been present for the past 3 days. Patient states that this feels exactly like her previous pneumonia. Patient denies fever, productive cough, syncope, chest pain, palpitations, abdominal pain, nausea, vomiting, diarrhea. Patient is unable to recall her last cardiac evaluation. Pain Scale: 6 - Related Data Home Medications Medication Instructions Recorded Confirmed Aspirin Enteric Coated [Aspirin EC] 81 mg PO DAILY 04/08/15 02/25/17 Multivitamin [Multi-Day Vitamins] 1 tab PO DAILY 04/08/15 02/25/17 Simvastatin [Zocor] 40 mg PO DAILY 04/08/15 02/25/17 Omeprazole [PriLOSEC] 20 mg PO DAILY 12/06/15 02/25/17 ALPRAZolam [Xanax 0.5 MG Tablet] 0.5 mg PO TID PRN 06/27/16 02/25/17 Tizanidine HCl 2 mg PO TID PRN 06/27/16 02/25/17 Ergocalciferol (VITAMIN D2) 50,000 unit PO QWEEK 01/16/17 02/25/17 [Vitamin D2] Insulin DETEMIR [Levemir Flextouch] 20 unit SQ BID 01/16/17 02/25/17 Iron Polysaccharide Complex 150 mg PO DAILY 01/16/17 02/25/17 [Ferrex 150] Metoprolol [Lopressor] 112.5 mg PO BID 01/16/17 02/25/17 [place]-3/Dha/Epa/Fish Oil [Fish Oil 4 cap PO DAILY 01/16/17 02/25/17 1,000 mg Softgel] Calcium Acetate [Phos-LO] 667 mg PO TIDWM 02/25/17 02/25/17 Furosemide [Lasix] 40 mg PO BID 02/25/17 02/25/17 Insulin LISPRO [Humalog Kwikpen 5 unit SQ TID PRN 02/25/17 02/25/17 U-100] NIFEdipine [Nifedipine ER] 60 mg PO DAILY 02/25/17 02/25/17 Previous Rx's Medication Instructions Recorded Budesonide/Formoterol 160/4.5 2 puff IH BIDR #1 inhaler 07/05/16 [Symbicort 160/4.5] Azithromycin [Zithromax] 500 mg PO DAILY #2 tab 01/21/17 Losartan Potassium [Cozaar] 100 mg PO DAILY #30 01/21/17 Allergies Allergy/AdvReac Type Severity Reaction Status Date / Time amitriptyline Allergy feels drunk Verified 02/24/17 22:56 amlodipine Allergy See Verified 02/24/17 22:56 Comments Amoxicillin [From Augmentin] Allergy Itching Verified 02/24/17 22:56 clavulanic acid Allergy Itching Verified 02/24/17 22:56 [From Augmentin] gabapentin [From Neurontin] Allergy make me Verified 02/24/17 22:56 sick at my stomach pregabalin [From Lyrica] Allergy Swelling Verified 02/24/17 22:56 of Lip/Tongue/Throat CAROLYN Inhibitors AdvReac Palpitation Verified 02/24/17 22:56 s fenofibrate [From Tricor] AdvReac Drowsy Verified 02/24/17 22:56 vancomycin AdvReac See Verified 02/24/17 22:56 Comments All systems ED: reviewed and negative except as stated. Review of Systems: As Per HPI Past Medical History - Past Medical History Attestation: Yes The following information was validated with the patient. Source: patient Medical history: Reports: arthritis, asthma, CHF, CVA, diabetes, dialysis, fibromyalgia, GERD, hyperlipidemia, hypertension, myocardial infarction, renal disease, other Surgical history: Reports: , orthopedic, other Psychiatric history: Reports: anxiety, depression [employer] history: Reports: no [employer] history - Social History Smoking Status: Former smoker Smokeless Tobacco Status: No Alcohol use: Reports: none Drug use: Reports: none Physical Exam General: Alert and in no acute distress Skin: Warm, dry, intact Head: Normocephalic and atraumatic Neck: Supple, trachea midline and no tenderness Cardiovascular: RRR, no murmur, normal perfusion Respiratory: CTAB, no wheezing, cough, or respiratory distress Musculoskeletal: Normal strength, no tenderness, swelling or deformity GI: Soft, nontender, nondistended. Bowel sounds present Neuro: A&O to person, place, time and situation. No focal deficits noted on exam Psychiatric: cooperative and appropriate mood and affect. - General Limitations: no limitations General appearance: alert Course Vital Signs Temperature 99.2 F 02/24/17 22:49 Pulse Rate 90 02/24/17 22:49 Respiratory Rate 18 02/24/17 22:49 Blood Pressure 205/123 02/24/17 22:49 O2 Sat by Pulse Oximetry 96 02/24/17 22:49 Temperature 98.6 F 02/26/17 04:18 Pulse Rate 77 02/26/17 04:18 Respiratory Rate 16 02/26/17 04:18 Blood Pressure 125/60 02/26/17 04:18 O2 Sat by Pulse Oximetry 96 02/26/17 04:18 Oxygen Delivery Oxygen Delivery Room Air Medical Decision Making - Medical Records Medical records reviewed: Yes I reviewed the patient's medical records. - Lab Data Lab results reviewed: Yes I reviewed the patient's lab results. Result diagrams: 02/26/17 05:47 02/25/17 04:07 Lab Results 02/24/17 02/24/17 02/24/17 Range/Units 23:46 23:47 23:47 WBC 13.4 H (4.3-11.1) K/mcL RBC 3.37 L (3.82-4.97) M/mcL Hgb 9.2 L (11.5-15.4) g/dL Hct 29.5 L (35.3-44.9) % MCV 87.5 (83.0-100.0) fL MCH 27.3 L (28.0-33.3) pg MCHC 31.2 L (31.6-35.5) g/dL RDW 15.5 H (11.5-14.5) % Plt Count 247 (140-400) K/mcL MPV 10.4 (9.4-12.4) fL Immature Gran % 0.8 (0-4) % Seg Neutrophils % 81.3 % Lymphocytes % 11.6 % Monocytes % 5.5 % Eosinophils % 0.5 % Basophils % 0.3 % Neutrophils # 10.9 H (1.6-8.9) K/mcL Lymphocytes # 1.6 (0.6-4.6) K/mcL Monocytes # 0.7 (0.0-1.3) K/mcL Eosinophils # 0.1 (0.0-0.6) K/mcL Basophils # 0.0 (0.0-0.2) K/mcL PT 12.4 H (9.4-12.1) Seconds INR 1.1 APTT 27.7 (26.0-36.0) Seconds Sodium 132 L (136-145) mEq/L Potassium 5.4 H (3.5-4.5) mEq/L Chloride 100 (98-109) mEq/L Carbon Dioxide 21 (19-29) mEq/L BUN 46 H (7-20) mg/dL Creatinine 5.43 H (0.57-1.11) mg/dL Est GFR ( Amer) 10 L (> 60) Est GFR (Non-Af Amer) 8 L (> 60) BUN/Creatinine Ratio 8 (6-26) Glucose 333 H (70-99) mg/dL Calculated Osmolality 299 (280-300) Calcium 8.5 L (8.6-10.8) mg/dL Magnesium (1.6-2.6) mg/dL Troponin I (0-0.03) ng/mL Triglycerides (< 150) mg/dL Cholesterol (< 200) mg/dL LDL Cholesterol, Calc (0-99) mg/dL VLDL Cholesterol, Calc (< 31) mg/dL HDL Cholesterol (40-59) mg/dL Cholesterol/HDL Ratio (0-4.9) 02/24/17 02/25/17 02/25/17 Range/Units 23:47 04:07 04:07 WBC 12.5 H (4.3-11.1) K/mcL RBC 3.26 L (3.82-4.97) M/mcL Hgb 8.9 L (11.5-15.4) g/dL Hct 28.1 L (35.3-44.9) % MCV 86.2 (83.0-100.0) fL MCH 27.3 L (28.0-33.3) pg MCHC 31.7 (31.6-35.5) g/dL RDW 15.8 H (11.5-14.5) % Plt Count 233 (140-400) K/mcL MPV 10.6 (9.4-12.4) fL Immature Gran % 0.7 (0-4) % Seg Neutrophils % 78.7 % Lymphocytes % 14.6 % Monocytes % 5.0 % Eosinophils % 0.7 % Basophils % 0.3 % Neutrophils # 9.8 H (1.6-8.9) K/mcL Lymphocytes # 1.8 (0.6-4.6) K/mcL Monocytes # 0.6 (0.0-1.3) K/mcL Eosinophils # 0.1 (0.0-0.6) K/mcL Basophils # 0.0 (0.0-0.2) K/mcL PT (9.4-12.1) Seconds INR APTT (26.0-36.0) Seconds Sodium 133 L (136-145) mEq/L Potassium 5.2 H (3.5-4.5) mEq/L Chloride 101 (98-109) mEq/L Carbon Dioxide 21 (19-29) mEq/L BUN 47 H (7-20) mg/dL Creatinine 5.56 H (0.57-1.11) mg/dL Est GFR ( Amer) 10 L (> 60) Est GFR (Non-Af Amer) 8 L (> 60) BUN/Creatinine Ratio 8 (6-26) Glucose 330 H (70-99) mg/dL Calculated Osmolality 301 H (280-300) Calcium 8.5 L (8.6-10.8) mg/dL Magnesium 1.8 (1.6-2.6) mg/dL Troponin I 0.54 H* (0-0.03) ng/mL Triglycerides 216 H (< 150) mg/dL Cholesterol 245 H (< 200) mg/dL LDL Cholesterol, Calc 159 H (0-99) mg/dL VLDL Cholesterol, Calc 43 H (< 31) mg/dL HDL Cholesterol 43 (40-59) mg/dL Cholesterol/HDL Ratio 5.7 H (0-4.9) 02/25/17 Range/Units 04:07 WBC (4.3-11.1) K/mcL RBC (3.82-4.97) M/mcL Hgb (11.5-15.4) g/dL Hct (35.3-44.9) % MCV (83.0-100.0) fL MCH (28.0-33.3) pg MCHC (31.6-35.5) g/dL RDW (11.5-14.5) % Plt Count (140-400) K/mcL MPV (9.4-12.4) fL Immature Gran % (0-4) % Seg Neutrophils % % Lymphocytes % % Monocytes % % Eosinophils % % Basophils % % Neutrophils # (1.6-8.9) K/mcL Lymphocytes # (0.6-4.6) K/mcL Monocytes # (0.0-1.3) K/mcL Eosinophils # (0.0-0.6) K/mcL Basophils # (0.0-0.2) K/mcL PT (9.4-12.1) Seconds INR APTT (26.0-36.0) Seconds Sodium (136-145) mEq/L Potassium (3.5-4.5) mEq/L Chloride (98-109) mEq/L Carbon Dioxide (19-29) mEq/L BUN (7-20) mg/dL Creatinine (0.57-1.11) mg/dL Est GFR ( Amer) (> 60) Est GFR (Non-Af Amer) (> 60) BUN/Creatinine Ratio (6-26) Glucose (70-99) mg/dL Calculated Osmolality (280-300) Calcium (8.6-10.8) mg/dL Magnesium (1.6-2.6) mg/dL Troponin I 0.44 H* (0-0.03) ng/mL Triglycerides (< 150) mg/dL Cholesterol (< 200) mg/dL LDL Cholesterol, Calc (0-99) mg/dL VLDL Cholesterol, Calc (< 31) mg/dL HDL Cholesterol (40-59) mg/dL Cholesterol/HDL Ratio (0-4.9) - Radiology Data Radiology results reviewed: Yes I reviewed the patient's radiology results. - EKG Data EKG #1 EKG attestation: Yes I reviewed and interpreted this EKG. EKG results narrative: ECG - interpreted by ED physician. Rate 80 to, normal sinus rhythm, no STEMI, ME, QT intervals, and QRS within normal limits Critical Care Time Critical Care Time: Yes Total Critical Care Time: 62 Attestation: The high probability of a clinically significant, sudden or life threatening deterioration of the cardiovascular system(s) required my full and direct attention, intervention and personal management. The aggregate critical care time was 62 minutes. This time is in addition to time spent performing reported procedures but includes the following: x Data Review and interpretation x Patient assessment and monitoring of vital signs x Documentation x Medication orders and management
[2017-02-25] MEDS ORDERED: *HR* Labetalol 100 MG/20 ML MDV IVP ONE (02:29)
[2017-02-25 02:30] LABS: INR 1.1; Prothrombin Time 12.4 Seconds (9.4-12.1)
[2017-02-25] MEDS ORDERED: *HR* Labetalol 100 MG/20 ML MDV ONE (02:32)
[2017-02-25 02:33] LABS: Activated Partial Thrombo Time 27.7 Seconds (26.0-36.0)
[2017-02-25] MEDS ORDERED: MOM Conc 10 ML UD.LIQ PO PRN (02:43)
[2017-02-25] MEDS ORDERED: *HR* Promethazine 25 MG/ML VIAL IVP PRN (02:43)
[2017-02-25] MEDS ORDERED: Ondansetron 4 MG/2 ML VIAL IVP PRN (02:43)
[2017-02-25] MEDS ORDERED: Acetaminophen 325 MG TABLET PO PRN (02:43)
[2017-02-25] MEDS ORDERED: *HR* Morphine 2 MG/ML SYRINGE IVP PRN (02:43)
[2017-02-25] MEDS ORDERED: Naloxone 0.4 MG/ML INJ IVP PRN (02:43)
[2017-02-25] MEDS: Heparin 25,000 UNIT/500 ML D5W 25,000 UNIT/500 ML MLS IVC SCH ×2 (02:47→21:11)
[2017-02-25] MEDS ORDERED: ALPRAZolam 0.5 MG TABLET PO PRN (02:48)
[2017-02-25] MEDS ORDERED: *HR* Labetalol 20 MG/4 ML SYRINGE IVP ONE (04:03)
[2017-02-25] MEDS ORDERED: Metoprolol 100 MG TABLET PO STA (04:03)
[2017-02-25 04:25] LABS: Hematocrit 28.1 % (35.3-44.9); Hemoglobin 8.9 g/dL (11.5-15.4); Mean Corpuscular HGB Conc 31.7 g/dL (31.6-35.5); Mean Corpuscular Hemoglobin 27.3 pg (28.0-33.3); Mean Corpuscular Volume 86.2 fL (83.0-100.0); Red Blood Count 3.26 M/mcL (3.82-4.97)
[2017-02-25 04:26] LABS: Basophils % 0.3 %; Eosinophils # 0.1 K/mcL (0.0-0.6); Eosinophils % 0.7 %; Immature Granulocytes % 0.7 % (0-4); Lymphocytes # 1.8 K/mcL (0.6-4.6); Lymphocytes % 14.6 %; Mean Platelet Volume 10.6 fL (9.4-12.4); Monocytes # 0.6 K/mcL (0.0-1.3); Neutrophils # 9.8 K/mcL (1.6-8.9); Platelet Count 233 K/mcL (140-400); Red Cell Distribution Width 15.8 % (11.5-14.5); Segmented Neutrophils % 78.7 %
[2017-02-25] MEDS ORDERED: Furosemide 40 MG/4 ML VIAL IVP ONE (04:37)
[2017-02-25 04:44] LABS: Calcium 8.5 mg/dL (8.6-10.8); Chol/HDL Ratio 5.7 (0-4.9); Magnesium 1.8 mg/dL (1.6-2.6); Potassium 5.2 mEq/L (3.5-4.5)
[2017-02-25] MEDS ORDERED: niCARdipine 40 MG/200 ML MLS IVC SCH (04:45)
--- NOTE | 2017-02-25 05:01 | Internal Med History&Physical ---
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 Check serial Troponin Started her on Heparin gtt EKG showed NSR, No ST T changes Cont ASA and B [place] (2) Hypertensive emergency Current visit: Yes Status: Acute Will start her on Nicardipine gtt Also resumed all home PO meds (3) Diastolic CHF, acute on chronic Current visit: Yes Status: Acute Reviewed 2 D Echo from 01/03 showed Normal LVEF and mild diastolic dysfunction Gave 1 dose IV Lasix 40mg Need to go for HD today Will consult Nephro in AM resumed all other home meds (4) ESRD (end stage renal disease) on dialysis Current visit: Yes Status: Acute on HD (5) Diabetes Current visit: No Status: Chronic placed her on ISS Qualifiers: Diabetes mellitus type: type 2 Diabetes mellitus complication status: with neurologic complications Diabetes mellitus complication detail: with polyneuropathy 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 Frederick is a 56 year old female with past medical history significant for morbid obesity, smoking, type 2 insulin-dependent diabetes hypertension dyslipidemia and congestive heart failure COPD and ESRD on HD M/W/F now presented to ER with increasing dyspnea on exertion and SOB. Patient states that her symptoms have been present for the past 3 days. Patient states that this feels exactly like her previous pneumonia. Patient denies fever, productive cough and chest pain. Past Med Surg Social Fam HX - Past Medical History Medical history: arthritis, asthma, CHF, CVA, diabetes, dialysis, fibromyalgia, GERD, hyperlipidemia, hypertension, myocardial infarction, renal disease, other Psychiatric history: anxiety, depression - Past Surgical History Surgical History: , orthopedic, other - Social History Smoking Status: Former smoker Smokeless Tobacco Status: No Alcohol use: none Drug use: none - Family History Mother Living Status: Hx Family Cardiac Disorders: Yes Hx Family Respiratory Disorders: Yes (Asthma) Hx Family Cancer: Yes (Lung Cancer(mother)) Hx Family GI Disorders: No Hx Family Endocrine Disorder: No Hx Family Neuromuscular Disorders: No Hx Family Neurologic Disorders: No Hx Family HEENT Disorders: No Hx Family Autoimmune Disorders: No Father Living Status: Hx Family Cardiac Disorders: Yes Hx Family Respiratory Disorders: Yes (lung cancer) Hx Family Cancer: Yes (lung cancer) Hx Family Endocrine Disorder: Yes (diabetes,) Internal Medicine - H&P: Meds Aspirin Enteric Coated [Aspirin EC] 81 mg PO DAILY 04/08/15 [History] Multivitamin [Multi-Day Vitamins] 1 tab PO DAILY 04/08/15 [History] Simvastatin [Zocor] 40 mg PO DAILY 04/08/15 [History] Omeprazole [PriLOSEC] 20 mg PO DAILY 12/06/15 [History] ALPRAZolam [Xanax 0.5 MG Tablet] 0.5 mg PO TID PRN 06/27/16 [History] Collagenase Oint [Santyl] 1 appl TP BID 06/27/16 [History] Insulin ASPART [Novolog Flexpen] 5 unit SQ TIDAC 06/27/16 [History] Tizanidine HCl 2 mg PO TID PRN 06/27/16 [History] Budesonide/Formoterol 160/4.5 [Symbicort 160/4.5] 2 puff IH BIDR #1 inhaler [Rx] Furosemide [Lasix] 40 mg PO DAILY #30 tablet 07/05/16 [Rx] HYDROcodone/Acet 5/325 mg [Castella 5-325 mg] 1 tab PO Q6H PRN #20 tablet 07/05/16 [Rx] Silvasorb 1 appl TP DAILY #1 tube 07/05/16 [Rx] Ergocalciferol (VITAMIN D2) [Vitamin D2] 50,000 unit PO QWEEK 01/16/17 [History] Insulin DETEMIR [Levemir Flextouch] 10 unit SQ BID 01/16/17 [History] Iron Polysaccharide Complex [Ferrex 150] 150 mg PO DAILY 01/16/17 [History] Metoprolol [Lopressor] 112.5 mg PO BID 01/16/17 [History] [place]-3/Dha/Epa/Fish Oil [Fish Oil 1,000 mg Softgel] 4 cap PO DAILY 01/16/17 [ History] Azithromycin [Zithromax] 500 mg PO DAILY #2 tab 01/21/17 [Rx] Losartan Potassium [Cozaar] 100 mg PO DAILY #30 01/21/17 [Rx] NIFEdipine XL (24 HR) [Procardia XL] 90 mg PO DAILY #30 tab.er.24 01/21/17 [Rx] 3 Allergy/AdvReac Type Severity Reaction Status Date / Time amitriptyline Allergy feels drunk Verified 02/24/17 22:56 amlodipine Allergy See Verified 02/24/17 22:56 Comments Amoxicillin [From Augmentin] Allergy Itching Verified 02/24/17 22:56 clavulanic acid Allergy Itching Verified 02/24/17 22:56 [From Augmentin] gabapentin [From Neurontin] Allergy make me Verified 02/24/17 22:56 sick at my stomach pregabalin [From Lyrica] Allergy Swelling Verified 02/24/17 22:56 of Lip/Tongue/Throat CAROLYN Inhibitors AdvReac Palpitation Verified 02/24/17 22:56 s fenofibrate [From Tricor] AdvReac Drowsy Verified 02/24/17 22:56 vancomycin AdvReac See Verified 02/24/17 22:56 Comments All Systems PM: A 10-system review of systems was performed and is negative for pertinent findings except as documented above in the HPI. Review of systems: All the systems are reviewed everything is benign except the systems and symptoms I mentioned in the history of present illness - Constitutional Vitals: Temp Pulse Resp BP Pulse Ox 99.2 F 84 18 187/91 97 02/24/17 22:49 02/25/17 03:50 02/25/17 03:50 02/25/17 04:10 02/25/17 03:50 General appearance: Present: A&O X 3, no acute distress - Head Head exam: Present: atraumatic, normal inspection - Neck Neck exam general surgery: Present: supple - Respiratory Respiratory exam: Present: decreased breath sounds, rales (mild), wheezes (mild) . Absent: respiratory distress, rhonchi - Cardiovascular Cardiovascular exam: Present: RRR, +S1, +S2. Absent: systolic murmur - GI/Abdominal GI/Abdominal exam: Present: normal bowel sounds, soft. Absent: rebound, rigid, tenderness - Extremities Exam Extremities exam: Absent: calf tenderness, pedal edema, tenderness - Back Exam Back exam: Absent: CVA tenderness (L), CVA tenderness (R) - Neurological Exam Neurological exam: Present: alert, oriented X3 - Psychiatric Psychiatric exam: Present: normal affect, normal mood Internal Med - H&P Results - Labs CBC & Chem 7: 02/25/17 04:07 02/25/17 04:07
[2017-02-25] MEDS: *HR* HYDROcodone/Acet 5/325 mg TABLET PO PRN ×2 (05:29→19:33)
[2017-02-25] MEDS ORDERED: *HR* Dextrose 50 % in Water (Syg) 50 ML SYRINGE IVP PRN (05:30)
[2017-02-25] MEDS ORDERED: D5% in Water 1,000 ML IVC PRN (05:30)
[2017-02-25] MEDS ORDERED: Dextrose Gel 15 GM PO PRN ×2 (05:30)
[2017-02-25] MEDS ORDERED: Ipratropium/Albuterol Neb 3 ML IH PRN (05:31)
[2017-02-25] MEDS: NIFEdipine XL (24 HR) 30 MG TAB.ER.24 PO SCH (05:31)
[2017-02-25] MEDS ORDERED: Insulin LISPRO 300 UNITS/3 ML VIAL SQ SCH ×3 (07:30→21:00)
[2017-02-25] MEDS: Aspirin Enteric Coated 81 MG Tablet PO SCH (08:07)
[2017-02-25] MEDS: Insulin LISPRO 300 UNITS/3 ML VIAL SQ SCH ×4 (08:37→21:29)
[2017-02-25 10:23] LABS: Hepatitis B Surface Antibody 0.44 mIU/mL; Hepatitis B Surface Antigen Nonreactive (Nonreactive)
--- NOTE | 2017-02-25 10:38 | Event Note ---
Date of Encounter: 02/25/17 Time of Encounter: 09:25 Patient is a 56y/o female with PMH of ESRD On HD, CHF, DM who is admitted for management of acute respiratory distress secondary to CHF decompensation secondary to volume overload. She was also found to have elevated TNI concerning for NSTEMI, she was started on heparin gtt. Pt seen and examined at bedside. Resting in bed and reports of feeling mildly better compared to previous day. Pt to undergo HORTICULTURE INSTRUCTOR for volume removal Cardiology consulted for NSTEMI NPO at this time until cardiology evaluation DM-high dose insulin sliding scale. accuchecks q4h while NPO. ACHS once diet starts HTN emergency resolved, BP within acceptable range at this time
--- NOTE | 2017-02-25 11:12 | Nephrology Consult Note ---
Date of Encounter: 02/25/17 Time of Encounter: 11:10 Assessment and Plan (1) ESRD (end stage renal disease) on dialysis Current Visit: Yes Status: Acute 56 yo female type II DM who was in stage IV CKD until November 2016. She was found to be in stage V CKD and without improvement nurse to HD which she started 1 month ago and is on a MWF schedule. She is a patient of [facility] and follows up on a regular basis. She has a port in her right chest and is supposed to undergo Fistula formation on . She is on her second HD port after there was malfunction of the initial port. She says she attends dialysis regularly. - Current Creatinine 5.56, GFR 8, BUN 47. - Patient to undergo dialysis today. If she undergoes cardiac catherization for her NSTEMI she would benefit from HD post contrast dye load. Plan: - Schedule HD (2) Diabetes Current Visit: No Status: Chronic Uncontrolled type II diabetic with current glucose around 3:30. - Strict diabetic diet, glucose control with a glucose below 140. 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 - Continue Losartan - Nifedipine 90mg PO daily Continue to monitor and treat per primary team. History of Present Illness - Reason for Consult Consult date: 02/25/17 end stage renal disease Requesting physician: Devin Lobato - Chief Complaint HD - History of Present Illness Mrs. Frederick 56-year-old female with known type 2 diabetes, recently starting hemodialysis Saturday through dialysis port in right upper chest. She was admitted with NSTEMI and currently on heparin drip. Nephrology was consult as the patient requires HD Saturday. Upon examination she denies any discomforts, concerns regarding her hemodialysis. She states that she started hemodialysis roughly one month ago and is been using the port in her right upper chest. She states that she had trouble with flow in her previous port which was replaced recently. She currently denies headaches, change in vision, chest pain, chest pressure, palpitations, down pains, nausea vomiting diarrhea constipation, she denies any discharge or bleeding or purulent drainage around her port. She has otherwise been feeling okay since admission and asked about undergoing dialysis as today would be her regular dialysis day. Past Med Surg Social Fam HX - Past Medical History Medical history: arthritis, asthma, CHF, CVA, diabetes, dialysis, fibromyalgia, GERD, hyperlipidemia, hypertension, myocardial infarction, renal disease, other Psychiatric history: anxiety, depression - Past Surgical History Surgical History: , orthopedic, other - Social History Smoking Status: Former smoker Smokeless Tobacco Status: No Alcohol use: none Drug use: none - Family History Mother Living Status: Cause of : cancer Hx Family Cardiac Disorders: Yes Hx Family Respiratory Disorders: Yes (Asthma) Hx Family Cancer: Yes (Lung Cancer(mother)) Hx Family GI Disorders: No Hx Family Endocrine Disorder: No Hx Family Neuromuscular Disorders: No Hx Family Neurologic Disorders: No Hx Family HEENT Disorders: No Hx Family Autoimmune Disorders: No Father Living Status: Cause of : cancer Hx Family Cardiac Disorders: Yes Hx Family Respiratory Disorders: Yes (lung cancer) Hx Family Cancer: Yes (lung cancer) Hx Family Endocrine Disorder: Yes Hx Family Neuromuscular Disorders: Yes Medications and Allergies Aspirin Enteric Coated [Aspirin EC] 81 mg PO DAILY 04/08/15 [History] Multivitamin [Multi-Day Vitamins] 1 tab PO DAILY 04/08/15 [History] Simvastatin [Zocor] 40 mg PO DAILY 04/08/15 [History] Omeprazole [PriLOSEC] 20 mg PO DAILY 12/06/15 [History] ALPRAZolam [Xanax 0.5 MG Tablet] 0.5 mg PO TID PRN 06/27/16 [History] Tizanidine HCl 2 mg PO TID PRN 06/27/16 [History] Budesonide/Formoterol 160/4.5 [Symbicort 160/4.5] 2 puff IH BIDR #1 inhaler [Rx] Ergocalciferol (VITAMIN D2) [Vitamin D2] 50,000 unit PO QWEEK 01/16/17 [History] Insulin DETEMIR [Levemir Flextouch] 20 unit SQ BID 01/16/17 [History] Iron Polysaccharide Complex [Ferrex 150] 150 mg PO DAILY 01/16/17 [History] Metoprolol [Lopressor] 112.5 mg PO BID 01/16/17 [History] [place]-3/Dha/Epa/Fish Oil [Fish Oil 1,000 mg Softgel] 4 cap PO DAILY 01/16/17 [ History] Azithromycin [Zithromax] 500 mg PO DAILY #2 tab 01/21/17 [Rx] Losartan Potassium [Cozaar] 100 mg PO DAILY #30 01/21/17 [Rx] Calcium Acetate [Phos-LO] 667 mg PO TIDWM 02/25/17 [History] Furosemide [Lasix] 40 mg PO BID 02/25/17 [History] Insulin LISPRO [Humalog Kwikpen U-100] 5 unit SQ TID PRN 02/25/17 [History] NIFEdipine [Nifedipine ER] 60 mg PO DAILY 02/25/17 [History] 3 Allergy/AdvReac Type Severity Reaction Status Date / Time amitriptyline Allergy feels drunk Verified 02/24/17 22:56 amlodipine Allergy See Verified 02/24/17 22:56 Comments Amoxicillin [From Augmentin] Allergy Itching Verified 02/24/17 22:56 clavulanic acid Allergy Itching Verified 02/24/17 22:56 [From Augmentin] gabapentin [From Neurontin] Allergy make me Verified 02/24/17 22:56 sick at my stomach pregabalin [From Lyrica] Allergy Swelling Verified 02/24/17 22:56 of Lip/Tongue/Throat CAROLYN Inhibitors AdvReac Palpitation Verified 02/24/17 22:56 s fenofibrate [From Tricor] AdvReac Drowsy Verified 02/24/17 22:56 vancomycin AdvReac See Verified 02/24/17 22:56 Comments Review of Systems Constitutional: no excessive sweating, no weight loss Eyes: bilateral: blurred vision (patient denies), diplopia (patient denies) Nose, mouth and throat: no dizziness, no headache(s) Cardiovascular: no chest pain, no palpitations Respiratory: no cough, no dyspnea Gastrointestinal: no abdominal pain, no change in bowel habits Musculoskeletal: no muscle weakness, no numbness Integumentary: no hirsutism, no striae Psychiatric: no depression, no difficulty concentrating Endocrine: as per HPI Hematologic/Lymphatic: no easy bruising, no lymphadenopathy Exam - Vital Signs Vital signs: Initial Vital Signs Temp Pulse Resp BP Pulse Ox 99.2 F 90 18 205/123 96 02/24/17 22:49 02/24/17 22:49 02/24/17 22:49 02/24/17 22:49 02/24/17 22:49 Vital Signs - Last 8 Hours Temp Pulse Resp BP Pulse Ox 02/25/17 08:24 64 02/25/17 07:19 98.3 F 02/25/17 06:11 73 16 153/77 95 02/25/17 05:38 98.9 F 81 16 172/95 97 02/25/17 05:10 84 16 194/99 94 02/25/17 04:59 18 177/85 02/25/17 04:50 182/83 02/25/17 04:35 185/82 Intake and Output 02/24/17 02/25/17 02/25/17 23:59 07:59 15:59 Intake Total 100 / 100 Balance 100 / 100 Intake: IV Fluids 100 / 100 Heparin 25,000 UNIT/500 ML D5W 100 / 100 25,000 unit In 500 ml @ 9 UNIT/ KG/HR 20.003 mls/hr IVC .Q24H LORRAINE Rx#:[id number] Oral 0 / 0 Other: Weight 109.7 kg 109.7 kg Blood Glucose* 307 307 Patient Weight 02/25/17 23:59 Weight 109.7 kg Results - Lab Results 02/25/17 04:07 02/25/17 04:07 Most recent lab results Calcium 8.5 mg/dL (8.6-10.8) L 02/25/17 04:07 Magnesium 1.8 mg/dL (1.6-2.6) 02/25/17 04:07 Consult Discharge Plan - Plan Referrals: Suresh Mendoza MD [Primary Care Provider] -
[2017-02-25] MEDS: Budesonide/Formoterol 160/4.5 MDI IH SCH ×2 (11:32→20:47)
[2017-02-25] MEDS ORDERED: 0.9 % Sodium Chloride 250 ML IVC PRN (11:53)
[2017-02-25] MEDS ORDERED: *HR* Heparin 10,000 UNIT/10 ML VIAL IV PRN (11:53)
[2017-02-25] MEDS ORDERED: 0.9 % Sodium Chloride 1,000 ML PRIME SCH (12:00)
--- NOTE | 2017-02-25 13:05 | Cardiology Consult Note ---
Date of Encounter: 02/25/17 Time of Encounter: 10:00 Assessment and Plan (1) Elevated troponin Current Visit: Yes Status: Acute Patient presents with mild elevation of troponin in setting of ESRD and hypertensive urgency and probably volume overload. She presents with dyspnea and swelling. She denies chest pain and there are no new ECG findings to suggest ischemia. Recommend obtaining an echo for evaluation of structure and function - previously normal LVEF in December 2016. Recommend continuing aspirin and statin. Ok to continue heparin gtt for now. Further recommendations pending echo results. Fluid management per Nephrology. Discussion w patient/family: The assessment and plan as outlined above was discussed with the patient and/or family members who expressed understanding and agreement. All questions were answered. Thank you for involving us in the care of your patient. Please call with any questions. History of Present Illness Consult date: 02/25/17 Requesting physician: Olya Ryder Consult reason: Elevated troponin Chief complaint: Dyspnea, swelling History of present illness: Ms. Frederick is a 56 year old female presenting with worsening dyspnea and swelling starting a few days ago. She has ESRD and has been compliant with dialysis sessions. She presented with elevated troponin, peak 0.54 in setting of hypertensive urgency, systolics >200 mmHg. She denies chest pain. ECG is without new changes. CXR demonstrates congestive findings. She was placed on heparin gtt. Her home medications were resumed and nicardipine gtt was started. She otherwise denies fevers, chills, nausea, vomiting. Does admit to intermittent chronic diarrhea. Denies productive cough. Past Med Surg Social Fam HX - Past Medical History Attestation: Yes The following information was validated with the patient. Medical history: arthritis, asthma, CHF, CVA, diabetes, dialysis, fibromyalgia, GERD, hyperlipidemia, hypertension, myocardial infarction (patient reports history of [place] although there is no prior documentation), renal disease, other Psychiatric history: anxiety, depression - Past Surgical History Surgical History: , orthopedic, other - Social History Smoking Status: Former smoker Smokeless Tobacco Status: No Alcohol use: none Drug use: none - Family History Mother Living Status: Cause of : cancer Hx Family Cardiac Disorders: Yes Hx Family Respiratory Disorders: Yes (Asthma) Hx Family Cancer: Yes (Lung Cancer(mother)) Hx Family GI Disorders: No Hx Family Endocrine Disorder: No Hx Family Neuromuscular Disorders: No Hx Family Neurologic Disorders: No Hx Family HEENT Disorders: No Hx Family Autoimmune Disorders: No Father Living Status: Cause of : cancer Hx Family Cardiac Disorders: Yes Hx Family Respiratory Disorders: Yes (lung cancer) Hx Family Cancer: Yes (lung cancer) Hx Family Endocrine Disorder: Yes Hx Family Neuromuscular Disorders: Yes Medications and Allergies Aspirin Enteric Coated [Aspirin EC] 81 mg PO DAILY 04/08/15 [History] Multivitamin [Multi-Day Vitamins] 1 tab PO DAILY 04/08/15 [History] Simvastatin [Zocor] 40 mg PO DAILY 04/08/15 [History] Omeprazole [PriLOSEC] 20 mg PO DAILY 12/06/15 [History] ALPRAZolam [Xanax 0.5 MG Tablet] 0.5 mg PO TID PRN 06/27/16 [History] Tizanidine HCl 2 mg PO TID PRN 06/27/16 [History] Budesonide/Formoterol 160/4.5 [Symbicort 160/4.5] 2 puff IH BIDR #1 inhaler [Rx] Ergocalciferol (VITAMIN D2) [Vitamin D2] 50,000 unit PO QWEEK 01/16/17 [History] Insulin DETEMIR [Levemir Flextouch] 20 unit SQ BID 01/16/17 [History] Iron Polysaccharide Complex [Ferrex 150] 150 mg PO DAILY 01/16/17 [History] Metoprolol [Lopressor] 112.5 mg PO BID 01/16/17 [History] [place]-3/Dha/Epa/Fish Oil [Fish Oil 1,000 mg Softgel] 4 cap PO DAILY 01/16/17 [ History] Azithromycin [Zithromax] 500 mg PO DAILY #2 tab 01/21/17 [Rx] Losartan Potassium [Cozaar] 100 mg PO DAILY #30 01/21/17 [Rx] Calcium Acetate [Phos-LO] 667 mg PO TIDWM 02/25/17 [History] Furosemide [Lasix] 40 mg PO BID 02/25/17 [History] Insulin LISPRO [Humalog Kwikpen U-100] 5 unit SQ TID PRN 02/25/17 [History] NIFEdipine [Nifedipine ER] 60 mg PO DAILY 02/25/17 [History] 3 Allergy/AdvReac Type Severity Reaction Status Date / Time amitriptyline Allergy feels drunk Verified 02/24/17 22:56 amlodipine Allergy See Verified 02/24/17 22:56 Comments Amoxicillin [From Augmentin] Allergy Itching Verified 02/24/17 22:56 clavulanic acid Allergy Itching Verified 02/24/17 22:56 [From Augmentin] gabapentin [From Neurontin] Allergy make me Verified 02/24/17 22:56 sick at my stomach pregabalin [From Lyrica] Allergy Swelling Verified 02/24/17 22:56 of Lip/Tongue/Throat CAROLYN Inhibitors AdvReac Palpitation Verified 02/24/17 22:56 s fenofibrate [From Tricor] AdvReac Drowsy Verified 02/24/17 22:56 vancomycin AdvReac See Verified 02/24/17 22:56 Comments All Systems Review: A 10-system review of systems was performed and is negative for pertinent findings except as documented above in the HPI. Physical Examination Vital Signs, Last 4 Hours Temp Pulse Resp BP Pulse Ox 02/25/17 11:36 97.9 F 02/25/17 11:33 16 95 02/25/17 11:00 62 10 120/73 98 General: Conversant, No Apparent Distress HEENT: Atraumatic, Normocephaly, Mucus Membranes Moist Neck: Other (JVP does not appear elevated) Cardiac: Reg Rate and Rhythm, Normal S1 and S2, No Murmur Lungs: Other (decreased breath sounds at bilateral bases) Neuro: Alert and responsive, No focal deficits noted Abdomen: Soft, Non-Tender, Other (bowel sounds present) Extremities: Other (moderate bilateral LE edema, mild bilateral UE edema) Results 02/25/17 04:07 02/25/17 04:07 Lab Results 02/25/17 02/25/17 08:35 10:01 APTT 34.5 Troponin I 0.33 H* - Imaging and Cardiology Chest Xray: report reviewed Echo: report reviewed (01/16/17) - EKG Interpretation EKG results cardiology: personally reviewed (Present ECG similar in appearance when compared to prior) Consult Discharge Plan - Plan Referrals: Suresh Mendoza MD [Primary Care Provider] -
--- NOTE | 2017-02-25 13:18 | Electrocardiograph Report ---
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
[2017-02-25] MEDS ORDERED: 0.9 % Sodium Chloride 2,000 ML ONE (13:20)
[2017-02-25] MEDS ORDERED: Silver Sulfadiazine 50 GM TUBE TP SCH (15:30)
[2017-02-26 05:55] LABS: Basophils % 0.4 %; Eosinophils # 0.2 K/mcL (0.0-0.6); Eosinophils % 1.6 %; Hematocrit 27.7 % (35.3-44.9); Hemoglobin 8.7 g/dL (11.5-15.4); Immature Granulocytes % 0.5 % (0-4); Lymphocytes # 1.5 K/mcL (0.6-4.6); Lymphocytes % 15.7 %; Mean Corpuscular HGB Conc 31.4 g/dL (31.6-35.5); Mean Corpuscular Hemoglobin 27.6 pg (28.0-33.3); Mean Corpuscular Volume 87.9 fL (83.0-100.0); Mean Platelet Volume 10.6 fL (9.4-12.4); Monocytes # 0.6 K/mcL (0.0-1.3); Monocytes % 6.3 %; Neutrophils # 7.2 K/mcL (1.6-8.9); Platelet Count 212 K/mcL (140-400); Red Blood Count 3.15 M/mcL (3.82-4.97); Red Cell Distribution Width 15.9 % (11.5-14.5); Segmented Neutrophils % 75.5 %
[2017-02-26 06:10] LABS: Calcium 8.1 mg/dL (8.6-10.8); Magnesium 1.8 mg/dL (1.6-2.6); Phosphorous 6.3 mg/dL (2.3-4.7)
[2017-02-26] MEDS: Insulin LISPRO 300 UNITS/3 ML VIAL SQ SCH ×4 (07:46→22:13)
[2017-02-26] MEDS: Aspirin Enteric Coated 81 MG Tablet PO SCH (07:46)
[2017-02-26] MEDS: NIFEdipine XL (24 HR) 30 MG TAB.ER.24 PO SCH (07:47)
--- NOTE | 2017-02-26 09:14 | Cardiology Progress Note ---
<Kalia More - Last Filed: 02/26/17 15:20> Date of Encounter: 02/26/17 Time of Encounter: 08:50 Assessment and Plan (1) Elevated troponin Current Visit: Yes Status: Acute Patient presented with mild elevation of troponin in setting of ESRD and hypertensive urgency and probably volume overload. She has multiple risk factors of CAD (smoking, HTN, diabetes, dyslipidemia, previous [place]). Troponin levels were trending down as of yesterday (033<0.44<0.54). EKG was independently reviewed and shows no signs of ischemia. The patient denies any chest pain, diaphoresis, and reports improvement of shortness of breath after her dialysis yesterday. Echo demonstrates LVEF 55-60%, normal LV chamber size and function, moderate concentric left ventricular hypertrophy, normal wall motion. We recommend continuing aspirin and statin. The Echo findings are negative for ischemia, but as she has multiple risk factors for CAD, LHC is recommended but non-emergent. Patient is informed of the risks and benefits of procedure and declines to have it done at this inpatient admission. She states that she would prefer to control her other co-morbidities first and will follow-up outpatient. As she has negative ischemic work-up, outpatient follow-up is reasonable. No cardiac interventions are necessary at this time and heparin drip is discontinued. Cardiology is signing off. Thank you for the consult. (2) ESRD (end stage renal disease) on dialysis Current Visit: Yes Status: Acute The patient started HD 1 month ago (MWF). She is a patient of [facility] and follows up on a regular basis. She has a port on her right chest and scheduled to undergo fistula formation on 02/28/17. She is on her second HD port after malfunction of initial port. She reports she is compliant with her HD schedule. Her kidney function has improved since HD yesterday night. Continue to manage per Nephrology. (3) Hypertensive emergency Current Visit: Yes Status: Acute The patient presented with shortness fo breath and hypertensive emergency with SBP in the 200s. Her BP is improved and more stable on current BP medication of Nifedipine, Losartan. Continue with BP management. Hydralazine if SBP > 160. (4) Diabetes Current Visit: No Status: Chronic Patient has uncontrolled diabetes with glucose in the 300s. Statins can result in increased serum glucose levels but as the patient has multiple risk factors for CAD, it is more beneficial to continue her statins and monitor her hyperglycemia closely. Continue with SSI. Qualifiers: Diabetes mellitus type: type 2 Diabetes mellitus complication status: with neurologic complications Diabetes mellitus complication detail: with polyneuropathy Diabetes mellitus assisted insulin use: with assisted use Qualified Code(s): E11.42 - Type 2 diabetes mellitus with diabetic polyneuropathy; Z79.4 - care home (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 (5) DVT prophylaxis Current Visit: No Status: Acute Continue Heparin SQ for DVT prophylaxis. Discussion w patient/family: The assessment and plan as outlined above was discussed with the patient and/or family members who expressed understanding and agreement. All questions were answered. Thank you for involving us in the care of your patient. Please call with any questions. Subjective Principal diagnosis: Elevated Troponin Interval history: Patient underwent hemodialysis yesterday. She reports increased fatigue this morning. No acute overnight events. She denies fever, chills, headache, lightheadedness, chest pain, diaphoresis, vision changes, palpitations, cough, nausea, vomiting, diarrhea, constipation, voiding difficulties. She reports improvement in shortness of breath and swelling of lower extremities. She is tolerating PO diet well. Currently has no complaints. Objective Vital Signs, Last 4 Hours Pulse Resp BP Pulse Ox 02/26/17 07:50 82 02/26/17 07:31 79 15 146/74 97 General: Conversant, No Apparent Distress HEENT: Atraumatic, Normocephaly, Mucus Membranes Moist Neck: No JVD, Normal carotid pulses Cardiac: Reg Rate and Rhythm, Normal S1 and S2, No Murmur Lungs: Normal Breath Sounds, No Wheeze, Rales, Rhonchi Neuro: Alert and responsive, No focal deficits noted Abdomen: Soft, Non-Tender Skin: No rashes noted on visualized skin Musculoskeletal: No Chest Wall Tenderness Extremities: No Clubbing, No Cyanosis, Normal Pulses, Other (lower extremity edema 1+ bilaterally ) Results 02/26/17 05:47 02/26/17 05:47 Lab Results 02/25/17 02/25/17 02/25/17 10:01 16:08 23:13 WBC Hgb Hct Plt Count APTT 35.1 69.5 H D Sodium Potassium Chloride Carbon Dioxide BUN Creatinine Glucose Calcium Magnesium Troponin I 0.33 H* 02/26/17 02/26/17 02/26/17 05:47 05:47 05:47 WBC 9.6 Hgb 8.7 L Hct 27.7 L Plt Count 212 APTT 70.5 H Sodium 134 L Potassium 5.0 H Chloride 101 Carbon Dioxide 24 BUN 39 H Creatinine 4.88 H Glucose 315 H Calcium 8.1 L Magnesium 1.8 Troponin I Consult Discharge Plan - Plan Referrals: Suresh Mendoza MD [Primary Care Provider] - (SENT WEB REQUEST ON 02-26 @ [id number]) <Alberta Rogel - Last Filed: 02/26/17 16:15> Date of Encounter: 02/26/17 Assessment and Plan (1) Elevated troponin Current Visit: Yes Status: Acute Discussion w patient/family: I examined this patient and my medical decision-making was reviewed with the Resident Physician. I agree with the documented findings, disposition and treatment plan. Mr. Frederick presented with mild elevated troponin in setting of significant hypertension and probable volume overload. She presented with symptoms of dyspnea and edema. She underwent dialysis and fluid removal yesterday. She reports improvement in SOB and her BP has improved. Her echo returned with normal LV systolic function. Her ECG is unchanged from prior. We discussed the findings and troponin elevation which certainly could be a result of severe hypertension on arrival, volume overload and presence of CKD. However, she has risk factors for CAD including CKD, diabetes, smoking, dyslipidemia. We discussed consideration for proceeding with LHC given elevated troponin and risk factors. After explaining the R/B/A in detail, the patient decided against proceeding and declined the procedure. Recommend continuing aspirin. Lipids were reviewed - recommend continuing statin at this time given marked abnormalities. Recommend aggressive dietary modification. Will sign off. Consider outpatient follow up. Results 02/26/17 05:47 02/26/17 05:47 Lab Results 02/25/17 02/25/17 02/26/17 16:08 23:13 05:47 WBC 9.6 Hgb 8.7 L Hct 27.7 L Plt Count 212 APTT 35.1 69.5 H D Sodium Potassium Chloride Carbon Dioxide BUN Creatinine Glucose Calcium Magnesium 02/26/17 02/26/17 05:47 05:47 WBC Hgb Hct Plt Count APTT 70.5 H Sodium 134 L Potassium 5.0 H Chloride 101 Carbon Dioxide 24 BUN 39 H Creatinine 4.88 H Glucose 315 H Calcium 8.1 L Magnesium 1.8
--- NOTE | 2017-02-26 09:30 | Nephrology Progress Note ---
Date of Encounter: 02/26/17 Time of Encounter: 09:27 - Assessment and Plan (1) ESRD (end stage renal disease) on dialysis Current Visit: Yes Status: Acute 56 yo female type II DM who was in stage IV CKD until November 2016. She was found to be in stage V CKD and without obiee lead developer to HD which she started 1 month ago and is on a MWF schedule. She is a patient of [facility] and follows up on a regular basis. She has a port in her right chest and is supposed to undergo Fistula formation on . She is on her second HD port after there was malfunction of the initial port. She says she attends dialysis regularly. - Creatinine 5.56, GFR 8, BUN 47. - Patient to undergo dialysis today. If she undergoes cardiac catherization for her NSTEMI she would benefit from HD post contrast dye load. 02/26: Patient tolerated hemodialysis well with removal of 2412 mL's. Yesterday had a negative fluid balance of -2011. At this time awaiting echocardiogram. Plan: - Continue with scheduled HD (2) Diabetes Current Visit: No Status: Chronic Uncontrolled type II diabetic with current glucose around 3:30. - Strict diabetic diet, glucose control with a glucose below 140. Qualifiers: Qualified Code(s): E11.42 - Type 2 diabetes mellitus with diabetic polyneuropathy; Z79.4 - technician terminal and repeater (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; Z79.4 - technician terminal and repeater ( 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; Z79.4 - technician terminal and repeater (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; Z79.4 - technician terminal and repeater (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 (3) Hypertensive emergency Current Visit: Yes Status: Acute Current BP appropriate. - Continue Losartan - Nifedipine 90mg PO daily Continue to monitor and treat per primary team. Subjective Principal diagnosis: Elevated Troponin Interval history: Ms. Frederick 56-year-old female seen about a patient bedside this morning. She denies any complaints concerns, chest pain, chest pressure, nausea vomiting diarrhea constipation abdominal pain or discomfort. She states she tolerated hemodialysis yesterday and has no concerns at this time. She is awaiting further recommendations from cardiology and is scheduled to have an echocardiogram this morning. Objective - Vital Signs Vital signs: Vital Signs Temp Pulse Resp BP Pulse Ox 02/26/17 07:50 82 02/26/17 07:31 79 15 146/74 97 02/26/17 04:18 98.6 F 77 16 125/60 96 02/26/17 03:10 78 02/25/17 23:38 98.8 F 76 16 123/62 95 02/25/17 23:25 81 02/25/17 20:47 17 94 02/25/17 19:54 98.7 F 87 16 137/65 95 02/25/17 19:30 86 02/25/17 17:55 98.1 F 15 154/76 02/25/17 17:45 138/67 02/25/17 17:30 139/73 02/25/17 17:15 148/72 02/25/17 17:00 136/66 02/25/17 16:45 140/67 02/25/17 16:35 68 02/25/17 16:30 146/63 02/25/17 16:15 140/73 02/25/17 16:00 130/68 02/25/17 15:45 137/66 02/25/17 15:30 139/69 02/25/17 15:15 145/75 02/25/17 15:00 130/72 02/25/17 14:45 134/72 02/25/17 14:30 98.1 F 14 147/76 02/25/17 13:00 67 10 124/69 97 02/25/17 11:36 97.9 F 02/25/17 11:33 16 95 02/25/17 11:00 62 10 120/73 98 Intake and Output 02/25/17 02/26/17 02/26/17 23:59 07:59 15:59 Intake Total 400 / 400 100 / 100 240 / 240 Output Total 2412 / 2412 Balance -2011 / -2011 100 / 100 240 / 240 Intake: IV Fluids 400 / 400 Heparin 25,000 UNIT/500 ML D5W 400 / 400 25,000 unit In 500 ml @ 9 UNIT/ KG/HR 20.003 mls/hr IVC .Q24H LORRAINE Rx#:[id number] Oral 100 / 100 240 / 240 Output: Urine 0 / 0 Total Dialysis (HD) Output 2411 / 241 Other: Meal Dinner Breakfast Percent of Meal Consumed 100% 100% Weight 109.5 kg Blood Glucose* 394 328 Hemodialysis Net Fluid Removed 1812 (mL) Patient Weight 02/26/17 23:59 Weight 109.5 kg - General Appearance Exam: General: Patient alert, awake, oriented 3, interactive, in no acute distress HEENT: Normocephalic, atraumatic, pupils equal reactive to light, nasal cavity patent and open septum median position, oral mucosa moist, uvula midline, neck supple trachea midline no palpable lymphadenopathy, no thyromegaly. Chest: Symmetric bilateral correlating with respiratory effort, effort nonlabored. Hemodialysis port in right upper chest without surrounding erythema edema or purulent drainage. Cardiac: Regular rate and rhythm, positive S1 and S2. no bruits appreciated bilateral carotids, Radial pulses 2+ bilateral, posterior tibial and dorsal pedal pulses 2+ bilateral. Respiratory: Clear to auscultation all lung holt Abdomen: Soft, nontender, positive bowel sounds, no palpable masses appreciated on examination Extremities: Symmetric bilateral, bilateral lower extremities wit trace bilateral edema, patient moving all 4 extremities spontaneously. Neurologic: No focal deficits appreciated on examination. Face symmetric, muscle strength symmetric bilateral upper and lower extremities. - Lab 02/26/17 05:47 02/26/17 05:47 Most recent lab results Calcium 8.1 mg/dL (8.6-10.8) L 02/26/17 05:47 Phosphorus 6.3 mg/dL (2.3-4.7) H 02/26/17 05:47 Magnesium 1.8 mg/dL (1.6-2.6) 02/26/17 05:47 Consult Discharge Plan - Plan Referrals: Suresh Mendoza MD [Primary Care Provider] -
[2017-02-26] MEDS ORDERED: *HR* Heparin 10,000 UNIT/10 ML VIAL IV PRN (09:49)
[2017-02-26] MEDS ORDERED: 0.9 % Sodium Chloride 250 ML IVC PRN (09:49)
[2017-02-26] MEDS ORDERED: 0.9 % Sodium Chloride 2,000 ML ONE (10:54)
[2017-02-26] MEDS: Budesonide/Formoterol 160/4.5 MDI IH SCH ×2 (11:10→22:44)
[2017-02-26] MEDS: Calcium Acetate 667 MG CAPSULE PO SCH ×2 (11:32→16:49)
[2017-02-26] MEDS: Heparin 25,000 UNIT/500 ML D5W 25,000 UNIT/500 ML MLS IVC SCH (11:35)
[2017-02-26] MEDS ORDERED: Heparin 1,000 UNITS/500 mL NS 500 ML ONE (14:16)
[2017-02-26] MEDS ORDERED: Clindamycin 600 MG/50 ML 600 MG/50 ML IV.SOLN IVPB ONE (14:40)
--- NOTE | 2017-02-26 18:12 | Internal Med Progress Note ---
Date of Encounter: 02/26/17 Time of Encounter: 11:00 - Assessment and plan (1) NSTEMI (non-ST elevated myocardial infarction) Current Visit: Yes Status: Acute Assessment and plan: -Cardiology following and patient has elected not to have cardiac cath done as an inpatient but will like to do it as an outpatient. (2) ESRD (end stage renal disease) on dialysis Current Visit: Yes Status: Acute Assessment and plan: -Nephrology is following and will continue hemodialysis as directed (3) Hypertension Current Visit: No Status: Chronic Assessment and plan: Controlled Qualifiers: Hypertension type: essential hypertension Qualified Code(s): I10 - Essential (primary) hypertension (4) Poorly controlled diabetes mellitus Current Visit: No Status: Acute Assessment and plan: Continue sliding-scale insulin as needed (5) Anemia in chronic illness Current Visit: No Status: Acute Assessment and plan: Stable; continue to monitor. (6) Morbid obesity with BMI of 45.0-49.9, adult Current Visit: No Status: Chronic Assessment and plan: Lifestyle modifications.. (7) DVT prophylaxis Current Visit: No Status: Acute Assessment and plan: Continue heparin - Subjective Interval history: Patient with no issues or complaints this morning and no acute events overnight. - Constitutional Vitals: Temp Pulse Resp BP Pulse Ox 97.7 F 78 16 150/72 92 02/26/17 15:45 02/26/17 16:00 02/26/17 15:45 02/26/17 17:45 02/26/17 11:09 General appearance: Present: A&O X 3, no acute distress - Respiratory Respiratory exam: Present: CTAB. Absent: accessory muscle use, rales, rhonchi, wheezes - Cardiovascular Cardiovascular exam: Present: RRR, +S1, +S2. Absent: diastolic murmur, gallop, rubs, systolic murmur Internal Medicine: Result - Labs CBC & Chem 7: 02/26/17 05:47 02/26/17 05:47 Labs: Short CBC 02/26/17 Range/Units 05:47 WBC 9.6 (4.3-11.1) K/mcL Hgb 8.7 L (11.5-15.4) g/dL Hct 27.7 L (35.3-44.9) % Plt Count 212 (140-400) K/mcL Neutrophils # 7.2 (1.6-8.9) K/mcL BMP 02/26/17 05:47 Sodium 134 L Potassium 5.0 H Chloride 101 Carbon Dioxide 24 BUN 39 H Creatinine 4.88 H Glucose 315 H Calcium 8.1 L - ABG Interpretation ABG results: PT/INR, D-dimer PT 12.4 Seconds (9.4-12.1) H 02/24/17 23:46 - Impressions Impressions Insertion Tunneled Catheter 02/26/17 00:00 IMPRESSION: Successful fluoroscopic guided exchange of a tunneled hemodialysis catheter as above. Prophylactic fibrin sheath disruption. D/ / Meek Aponte MD / Meek Aponte MD Interpreting Provider: Meek Aponte MD FITS OFFICER, Venous 02/26/17 00:00 IMPRESSION: Successful fluoroscopic guided exchange of a tunneled hemodialysis catheter as above. Prophylactic fibrin sheath disruption. D/ / Meek Aponte MD / Meek Aponte MD Interpreting Provider: Meek Aponte MD Echocardiogram Limited Views 02/26/17 10:51 Impressions: LVEF 55-60%. Normal LV chamber size and function. Moderate concentric left ventricular hypertrophy. Left Ventricular Wall Motion: Rest Echo Findings All wall segments showed normal motion. Findings: Study Quality * Technically adequate exam. ECG Findings * Normal sinus rhythm. Left Ventricle * LVEF 55-60%. * Normal LV chamber size and function. * Moderate concentric left ventricular hypertrophy. Right Ventricle * Normal right ventricular structure and function. Aorta * Normally sized aortic root. Pericardium * The pericardium appears normal. IVC * Normal IVC dimensions and inspiratory collapse. Consult Discharge Plan - Plan Referrals: Suresh Mendoza MD [Primary Care Provider] - (SENT WEB REQUEST ON 02-26 @ 100)
[2017-02-26] MEDS ORDERED: Silver Sulfadiazine 50 GM TUBE TP SCH (21:00)
[2017-02-26] MEDS ORDERED: Insulin DETEMIR 100 UNIT/ML X5UNITS SQ SCH (21:00)
[2017-02-26] MEDS: *HR* HYDROcodone/Acet 5/325 mg TABLET PO PRN (22:18)
[2017-02-26] MEDS: Insulin DETEMIR 100 UNIT/ML X5UNITS SQ SCH (22:19)
[2017-02-27] MEDS ORDERED: 0.9 % Sodium Chloride 250 ML IVC PRN (07:08)
[2017-02-27] MEDS ORDERED: *HR* Heparin 10,000 UNIT/10 ML VIAL IV PRN (07:08)
[2017-02-27] MEDS ORDERED: 0.9 % Sodium Chloride 1,000 ML PRIME SCH (07:15)
[2017-02-27] MEDS: Budesonide/Formoterol 160/4.5 MDI IH SCH (07:31)
[2017-02-27] MEDS ORDERED: 0.9 % Sodium Chloride 1,000 ML ONE (07:59)
[2017-02-27] MEDS: Calcium Acetate 667 MG CAPSULE PO SCH ×3 (08:15→17:08)
[2017-02-27] MEDS: Aspirin Enteric Coated 81 MG Tablet PO SCH (08:15)
[2017-02-27] MEDS: Insulin LISPRO 300 UNITS/3 ML VIAL SQ SCH ×3 (08:18→16:45)
--- NOTE | 2017-02-27 09:38 | Nephrology Progress Note ---
Date of Encounter: 02/27/17 Time of Encounter: 09:36 - Assessment and Plan (1) ESRD (end stage renal disease) on dialysis Current Visit: Yes Status: Acute 56 yo female type II DM who was in stage IV CKD until November 2016. She was found to be in stage V CKD and without fast food shift lead to HD which she started 1 month ago and is on a MWF schedule. She is a patient of [facility] and follows up on a regular basis. She has a port in her right chest and is supposed to undergo Fistula formation on . She is on her second HD port after there was malfunction of the initial port. She says she attends dialysis regularly. - Creatinine 5.56, GFR 8, BUN 47. - Patient to undergo dialysis today. If she undergoes cardiac catherization for her NSTEMI she would benefit from HD post contrast dye load. 02/26: Patient tolerated hemodialysis well with removal of 2412 mL's. Yesterday had a negative fluid balance of -2011. At this time awaiting echocardiogram. 02/27: Plans for HD today. Patient has elected to follow up outpatient with cardiology for [facility] and will optimize her current medications. - PTH 176.4 - Phosphate yesterday 6.3, continue phosphate binders. Plan: - Continue with scheduled HD (2) Diabetes Current Visit: No Status: Chronic Uncontrolled type II diabetic with current glucose around 300. - Strict diabetic diet, glucose control with a glucose below 140. Qualifiers: Diabetes mellitus type: type 2 Diabetes mellitus complication status: with neurologic complications Diabetes mellitus complication detail: with polyneuropathy Diabetes mellitus radiology asst insulin use: with radiology asst use Qualified Code(s): E11.42 - Type 2 diabetes mellitus with diabetic polyneuropathy; Z79.4 - [facility] (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 (3) Hypertensive emergency Current Visit: Yes Status: Acute Current BP appropriate. - Continue Losartan - Nifedipine 90mg PO daily Continue to monitor and treat per primary team. Subjective Principal diagnosis: Elevated Troponin Interval history: Ms. Frederick 56-year-old female seen during dialysis today. She is tolerating HD and plans to follow up with Cardiology outpatient for [facility]. She denies any complaints concerns, chest pain, chest pressure, nausea vomiting diarrhea constipation abdominal pain or discomfort. Objective - Vital Signs Vital signs: Vital Signs Temp Pulse Resp BP Pulse Ox 02/27/17 08:00 80 02/27/17 07:34 98.7 F 82 16 149/72 98 02/27/17 07:28 16 98 02/27/17 04:08 98.5 F 79 18 143/81 97 02/27/17 03:20 81 02/26/17 23:13 99.2 F 83 18 134/61 97 02/26/17 23:00 82 02/26/17 22:44 16 93 02/26/17 20:15 87 02/26/17 19:42 99.4 F 84 18 158/70 97 02/26/17 18:55 97.7 F 15 160/81 02/26/17 18:45 142/76 02/26/17 18:30 148/73 02/26/17 18:15 154/69 02/26/17 18:00 144/62 02/26/17 17:45 150/72 02/26/17 17:30 150/68 02/26/17 17:15 143/71 02/26/17 17:00 153/79 02/26/17 16:45 163/85 02/26/17 16:30 159/79 02/26/17 16:15 156/77 02/26/17 16:00 78 153/79 02/26/17 15:45 97.7 F 16 158/82 02/26/17 11:46 68 02/26/17 11:09 98.9 F 70 18 115/65 92 Intake and Output 02/26/17 02/27/17 02/27/17 23:59 07:59 15:59 Intake Total 120 / 120 360 / 360 Output Total 1600 / 1600 Balance -1480 / -1480 360 / 360 Intake: Oral 120 / 120 360 / 360 Output: Urine 0 / 0 Total Dialysis (HD) Output 1600 / 1600 Other: Meal NPO Breakfast Percent of Meal Consumed 100% Weight 108.9 kg Blood Glucose* 175 230 Hemodialysis Net Fluid Removed 1000 (mL) Patient Weight 02/27/17 23:59 Weight 108.9 kg - General Appearance Exam: General: Patient alert, awake, oriented 3, interactive, in no acute distress HEENT: Normocephalic, atraumatic, pupils equal reactive to light, nasal cavity patent and open septum median position, oral mucosa moist, uvula midline, neck supple trachea midline no palpable lymphadenopathy, no thyromegaly. Chest: Symmetric bilateral correlating with respiratory effort, effort nonlabored. Hemodialysis port in right upper chest without surrounding erythema edema or purulent drainage. Cardiac: Regular rate and rhythm, positive S1 and S2. no bruits appreciated bilateral carotids, Radial pulses 2+ bilateral, posterior tibial and dorsal pedal pulses 2+ bilateral. Respiratory: Clear to auscultation all lung holt Abdomen: Soft, nontender, positive bowel sounds, no palpable masses appreciated on examination Extremities: Symmetric bilateral, bilateral lower extremities wit trace bilateral edema, patient moving all 4 extremities spontaneously. Neurologic: No focal deficits appreciated on examination. Face symmetric, muscle strength symmetric bilateral upper and lower extremities. - Lab 02/26/17 05:47 02/26/17 05:47 Most recent lab results Calcium 8.1 mg/dL (8.6-10.8) L 02/26/17 05:47 Phosphorus 6.3 mg/dL (2.3-4.7) H 02/26/17 05:47 Magnesium 1.8 mg/dL (1.6-2.6) 02/26/17 05:47 Consult Discharge Plan - Plan Referrals: Suresh Mendoza MD [Primary Care Provider] - (SENT WEB REQUEST ON 02-26 @ [id number])
[2017-02-27 11:15] LABS: Basophils % 0.4 %; Eosinophils # 0.1 K/mcL (0.0-0.6); Eosinophils % 1.4 %; Hematocrit 27.2 % (35.3-44.9); Hemoglobin 8.7 g/dL (11.5-15.4); Immature Granulocytes % 0.3 % (0-4); Lymphocytes # 1.2 K/mcL (0.6-4.6); Lymphocytes % 16.3 %; Mean Corpuscular Hemoglobin 28.1 pg (28.0-33.3); Mean Corpuscular Volume 87.7 fL (83.0-100.0); Mean Platelet Volume 10.2 fL (9.4-12.4); Monocytes # 0.6 K/mcL (0.0-1.3); Monocytes % 8.2 %; Neutrophils # 5.3 K/mcL (1.6-8.9); Platelet Count 193 K/mcL (140-400); Red Cell Distribution Width 15.4 % (11.5-14.5); Segmented Neutrophils % 73.4 %
[2017-02-27 11:32] LABS: Calcium 8.2 mg/dL (8.6-10.8)
[2017-02-27] MEDS: NIFEdipine XL (24 HR) 30 MG TAB.ER.24 PO SCH (13:23)
[2017-02-27] MEDS: Insulin DETEMIR 100 UNIT/ML X5UNITS SQ SCH (13:24)
--- NOTE | 2017-02-27 16:21 | Discharge Summary ---
Date of Encounter: 02/27/17 Time of Encounter: 11:00 - Discharge Diagnosis (1) NSTEMI (non-ST elevated myocardial infarction) Priority: Primary Status: Acute (2) ESRD (end stage renal disease) on dialysis Priority: Primary Status: Acute (3) Hypertension Priority: Secondary Status: Chronic Qualifiers: Hypertension type: essential hypertension Qualified Code(s): I10 - Essential (primary) hypertension (4) Poorly controlled diabetes mellitus Priority: Secondary Status: Acute (5) Anemia in chronic illness Priority: Secondary Status: Acute (6) Morbid obesity with BMI of 45.0-49.9, adult Priority: Secondary Status: Chronic - Discharge Medications Home Medications: Aspirin Enteric Coated [Aspirin EC] 81 mg PO DAILY 04/08/15 [History] Multivitamin [Multi-Day Vitamins] 1 tab PO DAILY 04/08/15 [History] Simvastatin [Zocor] 40 mg PO DAILY 04/08/15 [History] Omeprazole [PriLOSEC] 20 mg PO DAILY 12/06/15 [History] ALPRAZolam [Xanax 0.5 MG Tablet] 0.5 mg PO TID PRN 06/27/16 [History] Tizanidine HCl 2 mg PO TID PRN 06/27/16 [History] Budesonide/Formoterol 160/4.5 [Symbicort 160/4.5] 2 puff IH BIDR #1 inhaler [Rx] Ergocalciferol (VITAMIN D2) [Vitamin D2] 50,000 unit PO QWEEK 01/16/17 [History] Insulin DETEMIR [Levemir Flextouch] 10 unit SQ BID 01/16/17 [History] Iron Polysaccharide Complex [Ferrex 150] 150 mg PO DAILY 01/16/17 [History] Metoprolol [Lopressor] 112.5 mg PO BID 01/16/17 [History] [place]-3/Dha/Epa/Fish Oil [Fish Oil 1,000 mg Softgel] 4 cap PO DAILY 01/16/17 [ History] Azithromycin [Zithromax] 500 mg PO DAILY #2 tab 01/21/17 [Rx] Losartan Potassium [Cozaar] 100 mg PO DAILY #30 01/21/17 [Rx] Calcium Acetate [Phos-LO] 667 mg PO TIDWM 02/25/17 [History] Furosemide [Lasix] 40 mg PO BID 02/25/17 [History] Insulin LISPRO [Humalog Kwikpen U-100] 5 unit SQ TID PRN 02/25/17 [History] NIFEdipine [Nifedipine ER] 60 mg PO DAILY 02/25/17 [History] Allergies/Adverse Reactions: 3 Allergy/AdvReac Type Severity Reaction Status Date / Time amitriptyline Allergy feels drunk Verified 02/24/17 22:56 amlodipine Allergy See Verified 02/24/17 22:56 Comments Amoxicillin [From Augmentin] Allergy Itching Verified 02/24/17 22:56 clavulanic acid Allergy Itching Verified 02/24/17 22:56 [From Augmentin] gabapentin [From Neurontin] Allergy make me Verified 02/24/17 22:56 sick at my stomach pregabalin [From Lyrica] Allergy Swelling Verified 02/24/17 22:56 of Lip/Tongue/Throat CAROLYN Inhibitors AdvReac Palpitation Verified 02/24/17 22:56 s fenofibrate [From Tricor] AdvReac Drowsy Verified 02/24/17 22:56 vancomycin AdvReac See Verified 02/24/17 22:56 Comments Procedures/tests Complete & Pending: Procedures Performed prior 72 hours Category Date Time Status IR cvc repo 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 Need wound orders. Call Completed: Yes 02/25/17 08:22 Consult to Cardiology [CONS] Stat Comment: Consulting Provider: Cardiology Tresa Reason for Consult: NSTEMI Call Completed: Yes 02/25/17 12:00 Consult to Dialysis [CONS] ONCE 02/26/17 10:00 Consult to Dialysis [CONS] ONCE 02/26/17 10:09 Consult to Interventional Radiology [CONS] Routine Consulting Provider: Radiology Interventional Cols Reason for Consult: Patient tunneled line not working well. Needs an exchange. Call Completed: No 02/27/17 07:15 Consult to Dialysis [CONS] ONCE - Patient Status Disposition: Home, Self-Care - Discharge Instructions Instructions: Myocardial Infarction (DC) Follow Up With: Suresh Mendoza MD [Primary Care Provider] - (SENT WEB REQUEST ON 02-26 @ [phone]) Hospital course: Patient is a 56 year old female with past medical history significant for morbid obesity, smoking, type 2 insulin-dependent diabetes, hypertension dyslipidemia, congestive heart failure COPD and ESRD on HD M/W/F who presented to ER on 02/25/17 with increasing dyspnea on exertion and SOB. Patient stated that her symptoms had been present 3 days prior to admission. Patient presented to the ER with mild elevation of troponin in setting of ESRD and hypertensive urgency and probably volume overload. She has multiple risk factors of CAD (smoking, HTN, diabetes, dyslipidemia, previous [place]). During hospital stay, troponin levels were trending down and EKG was independently reviewed by cardiology which showed no signs of ischemia. Echo showed LVEF 55-60 %, normal LV chamber size and function, moderate concentric left ventricular hypertrophy, normal wall motion. Recommendations per cardiology are for the patient to continue aspirin and statin. The Echo findings are negative for ischemia, but as she has multiple risk factors for CAD, LHC was recommended but non-emergent. Patient was informed by cardiology of the risks and benefits of procedure and declined to have it done at this inpatient admission. She would prefer to follow-up as an outpatient. In addition, patient is established with [facility] and follows up on a regular basis. She has a port in her right chest and is supposed to undergo Fistula formation on . She is on her second HD port after there was malfunction of the initial port. She says she attends dialysis regularly. She will be discharged to follow up for scheduled appointment. - Time Spent with Patient Total time spent providing and/or coordinating discharge services: - Constitutional Vitals: Temp Pulse Resp BP Pulse Ox 98.9 F 84 16 171/81 97 02/27/17 13:02 02/27/17 13:02 02/27/17 13:02 02/27/17 13:02 02/27/17 13:02 General appearance: Present: A&O X 3, no acute distress
[2017-02-27 16:24] VITALS: BP 131/52
== END 2017-02-27 17:30 | disposition home or self-care (01) | DRG 190 ==
LOC: ICNU 22:35 → EMEROO 22:35 → SUATTDRO 02-25 04:30 → ICNU 02-25 05:02 → 2NNU 02-25 15:09
PROVIDERS: ADMIT Pediatrics; ATTEND Hospitalist

== ENCOUNTER 2017-03-01 14:26 | Inpatient (IN) ==
--- NOTE | 2017-03-01 14:36 | Emergency Department Note ---
Disposition Clinical Impression: History of renal dialysis, History of end stage renal disease, Fever of unknown origin, Tachycardia Leukocytosis Qualifiers: Leukocytosis type: unspecified Qualified Code(s): D72.829 - Elevated white blood cell count, unspecified Sepsis Qualifiers: Sepsis type: sepsis due to unspecified organism Qualified Code(s): A41.9 - Sepsis, unspecified organism Disposition: Admitted As Inpatient Condition: Fair Time of Disposition: 17:17 Fever HPI - General Chief Complaint: ED Fever Stated Complaint: fever Time Seen by Provider: 03/01/17 14:29 Source: patient Mode of arrival: wheelchair Limitations: no limitations Nursing Notes Reviewed: Yes Vital Signs Reviewed: Yes - History of Present Illness HPI Narrative: Patient is a 56-year-old female with past medical history of end-stage renal disease and dialysis dependent. She also has a history of fibromyalgia, diabetes, hypertension. She presents today from dialysis due to fever, generalized weakness and feeling unwell. Patient said that she had a fever up to 103 today during dialysis. She denies any chest pain, shortness of breath. She has had some nausea but denies any vomiting, abdominal pain. No new wounds. She also notes that she had her right chest port replaced partially 3 times within the past month due to difficulty with drawing blood work including giving medicines. She has noticed some redness around her new chest port that was placed Saturday. She also notes that she was recently treated for a pneumonia within the past week. Denies any significant coughing or phlegm production recently. - Related Data Home Medications Medication Instructions Recorded Confirmed Aspirin Enteric Coated [Aspirin EC] 81 mg PO DAILY 04/08/15 03/01/17 Multivitamin [Multi-Day Vitamins] 1 tab PO DAILY 04/08/15 03/01/17 Simvastatin [Zocor] 40 mg PO DAILY 04/08/15 03/01/17 Omeprazole [PriLOSEC] 20 mg PO DAILY 12/06/15 03/01/17 ALPRAZolam [Xanax 0.5 MG Tablet] 0.5 mg PO TID PRN 06/27/16 03/01/17 Tizanidine HCl 2 mg PO TID PRN 06/27/16 03/01/17 Ergocalciferol (VITAMIN D2) 50,000 unit PO QWEEK 01/16/17 03/01/17 [Vitamin D2] Insulin DETEMIR [Levemir Flextouch] 10 unit SQ BID 01/16/17 03/01/17 Iron Polysaccharide Complex 150 mg PO DAILY 01/16/17 03/01/17 [Ferrex 150] Metoprolol [Lopressor] 112.5 mg PO BID 01/16/17 03/01/17 [place]-3/Dha/Epa/Fish Oil [Fish Oil 4 cap PO DAILY 01/16/17 03/01/17 1,000 mg Softgel] Calcium Acetate [Phos-LO] 667 mg PO TIDWM 02/25/17 03/01/17 Furosemide [Lasix] 40 mg PO BID 02/25/17 03/01/17 Insulin LISPRO [Humalog Kwikpen 5 unit SQ TID PRN 02/25/17 03/01/17 U-100] NIFEdipine [Nifedipine ER] 60 mg PO DAILY 02/25/17 03/01/17 Previous Rx's Medication Instructions Recorded Budesonide/Formoterol 160/4.5 2 puff IH BIDR #1 inhaler 07/05/16 [Symbicort 160/4.5] Losartan Potassium [Cozaar] 100 mg PO DAILY #30 01/21/17 Allergies Allergy/AdvReac Type Severity Reaction Status Date / Time amitriptyline Allergy feels drunk Verified 02/24/17 22:56 amlodipine Allergy See Verified 02/24/17 22:56 Comments Amoxicillin [From Augmentin] Allergy Itching Verified 02/24/17 22:56 clavulanic acid Allergy Itching Verified 02/24/17 22:56 [From Augmentin] gabapentin [From Neurontin] Allergy make me Verified 02/24/17 22:56 sick at my stomach pregabalin [From Lyrica] Allergy Swelling Verified 02/24/17 22:56 of Lip/Tongue/Throat CAROLYN Inhibitors AdvReac Palpitation Verified 02/24/17 22:56 s fenofibrate [From Tricor] AdvReac Drowsy Verified 02/24/17 22:56 vancomycin AdvReac See Verified 02/24/17 22:56 Comments All systems ED: reviewed and negative except as stated. Constitutional: Reports: fever ENT ED: Denies: ear pain, throat pain, congestion Fever PMH - Past Medical History Medical history: Reports: arthritis, asthma, CHF, CVA, diabetes, dialysis, fibromyalgia, GERD, hyperlipidemia, hypertension, myocardial infarction, renal disease, other Surgical history: Reports: , orthopedic, other Psychiatric history: Reports: anxiety, depression CHILD AND ADOLESCENT THERAPIST history: Reports: no CHILD AND ADOLESCENT THERAPIST history - Social History Smoking Status: Former smoker Alcohol use: Reports: none Drug use: Reports: none Physical Exam - General Limitations: no limitations General appearance: alert, in no apparent distress - Head Head exam: atraumatic, normocephalic, normal inspection - Eye Eye exam: Present: normal appearance, PERRL, EOMI - ENT ENT exam: normal exam, normal oropharynx, mucous membranes moist - Neck Neck exam: Present: normal inspection, full ROM, trachea midline - Chest Chest inspection: Present: symmetric chest wall rise, other (right chest port present with mild tenderness and redness around insertion site, no pus drainage) - Respiratory Respiratory exam: Present: normal lung sounds bilaterally. Absent: respiratory distress, wheezes - Cardiovascular Cardiovascular exam: Present: normal rhythm, tachycardia, normal heart sounds - Abdominal Exam Abdominal exam: Present: soft, Non-Tender. Absent: tenderness, distention, guarding, rebound, rigidity - Extremities Exam Extremities exam: Present: normal inspection, full ROM. Absent: tenderness, pedal edema - Neurological Exam Neurological exam: Present: alert, oriented X3 - Psychiatric Psychiatric exam: Present: normal affect, normal mood - Skin Skin exam: Present: warm, dry, intact, other (See chest section for skin exam of chest/port) Course Course Narrative: Temperature was 103 degrees on presentation. Patient received 1 g of Tylenol prior to presentation and our ago during dialysis. She is also hypertensive. The rest of the vitals within normal limits. Physical exam shows clear lungs, heart regular rhythm but tachycardic. She also has mild tenderness and mild erythema around the right chest port but no active pus drainage. Abdomen is soft and benign. No other skin lesions noted. Due to tachycardia, fever, concern for sepsis at this time. We will obtain a septic workup including basic labs, blood cultures, will give normal saline bolus. WIll obtain CXR and flu swab. Also start empiric antibiotics. Will start cefepime and levaquin per rec from pharmacy due to allergy of amoxicillin and vanc. 17:10 patient has a leukocytosis of 12. Basic blood work shows creatinine consistent with patient's end-stage renal disease. Troponin is elevated 0.12. This is actually decreased from most recent elevation and has trended down from 0.5 on 02/24. She has no current chest pain or shortness of breath. However, will give the patient aspirin. Chest x-ray was negative for any acute cardiopulmonary process. Currently I do not have a solid source of fever for the patient. It could be viral due to diffuse body aches and high fevers or could be from right chest port. However, the right chest port site is not very impressive on clinical exam. This was all discussed with the hospitalist and she has been accepted for admission. Cefepime and Levaquin have been ordered empirically. We will consult the patient's digital marketing specialist for further care as well prior to admission. Chest X-Ray 03/01/17 14:49 IMPRESSION: No evidence of acute cardiopulmonary disease. D/ / Joni Noland MD / Joni Noland MD Interpreting Provider: Joni Noland MD Vital Signs Temperature 103 F H 03/01/17 14:28 Pulse Rate 105 03/01/17 14:28 Respiratory Rate 18 03/01/17 14:28 Blood Pressure 192/86 03/01/17 14:28 O2 Sat by Pulse Oximetry 96 03/01/17 14:28 Temperature 102 F H 03/01/17 16:30 Pulse Rate 102 03/01/17 17:23 Respiratory Rate 20 03/01/17 18:35 Blood Pressure 171/70 03/01/17 18:35 O2 Sat by Pulse Oximetry 95 03/01/17 17:23 Oxygen Delivery Oxygen Delivery Room Air Fever - MDM Narrative Medical decision making narrative: 17:10 patient has a leukocytosis of 12. Basic blood work shows creatinine consistent with patient's end-stage renal disease. Troponin is elevated 0.12. This is actually decreased from most recent elevation and has trended down from 0.5 on 02/24. She has no current chest pain or shortness of breath. However, will give the patient aspirin. Chest x-ray was negative for any acute cardiopulmonary process. Currently I do not have a solid source of fever for the patient. It could be viral due to diffuse body aches and high fevers or could be from right chest port. However, the right chest port site is not very impressive on clinical exam. This was all discussed with the hospitalist and she has been accepted for admission. Cefepime and Levaquin have been ordered empirically. We will consult the patient's digital marketing specialist for further care as well prior to admission. - Medical Records Medical records reviewed: Yes I reviewed the patient's medical records. - Lab Data Lab results reviewed: Yes I reviewed the patient's lab results. Result diagrams: 03/01/17 15:15 03/01/17 15:15 Lab Results 03/01/17 03/01/17 03/01/17 Range/Units 15:15 15:15 15:15 WBC 12.0 H D (4.3-11.1) K/mcL RBC 3.14 L (3.82-4.97) M/mcL Hgb 8.8 L (11.5-15.4) g/dL Hct 27.7 L (35.3-44.9) % MCV 88.2 (83.0-100.0) fL MCH 28.0 (28.0-33.3) pg MCHC 31.8 (31.6-35.5) g/dL RDW 15.2 H (11.5-14.5) % Plt Count 162 (140-400) K/mcL MPV 10.7 (9.4-12.4) fL Immature Gran % 0.5 (0-4) % Seg Neutrophils % 93.5 % Lymphocytes % 2.5 % Monocytes % 3.1 % Eosinophils % 0.1 % Basophils % 0.3 % Neutrophils # 11.2 H (1.6-8.9) K/mcL Lymphocytes # 0.3 L (0.6-4.6) K/mcL Monocytes # 0.4 (0.0-1.3) K/mcL Eosinophils # 0.0 (0.0-0.6) K/mcL Basophils # 0.0 (0.0-0.2) K/mcL Immature Plt Fraction 3.5 (1.1-6.1) % PT 14.0 H (9.4-12.1) Seconds INR 1.3 APTT 29.8 (26.0-36.0) Seconds Sodium 136 (136-145) mEq/L Potassium 4.1 (3.5-4.5) mEq/L Chloride 100 (98-109) mEq/L Carbon Dioxide 24 (19-29) mEq/L BUN 26 H (7-20) mg/dL Creatinine 3.72 H (0.57-1.11) mg/dL Est GFR ( Amer) 15 L (> 60) Est GFR (Non-Af Amer) 13 L (> 60) BUN/Creatinine Ratio 7 (6-26) Glucose 173 H (70-99) mg/dL Calculated Osmolality 291 (280-300) Lactic Acid (0.5-2.2) mmol/L Calcium 7.8 L (8.6-10.8) mg/dL Phosphorus 3.4 (2.3-4.7) mg/dL Magnesium 1.3 L (1.6-2.6) mg/dL Total Bilirubin 0.2 (0.2-1.2) mg/dL Direct Bilirubin 0.1 (0.0-0.5) mg/dL Indirect Bilirubin 0.1 (0.0-1.2) mg/dL AST 12 (5-34) Units/L ALT 12 (0-55) Units/L Alkaline Phosphatase 70 (38-126) Units/L Troponin I (0-0.03) ng/mL Serum Total Protein 6.3 (6.0-8.3) g/dL Albumin 2.1 L (3.5-5.0) g/dL Globulin 4.2 H (2.4-3.5) g/dL Albumin/Globulin Ratio 0.5 L (1.1-2.2) Urine Color (Yellow) Urine Clarity (Clear) Urine pH (5.0-8.0) pH Units Ur Specific [place] (1.010-1.025) Urine Protein (Neg-Trace) mg/dL Urine Glucose (UA) (Normal) mg/dL Urine Ketones (Negative) mg/dL Urine Blood (Negative) Urine Nitrite (Negative) Urine Bilirubin (Negative) Urine Urobilinogen (Normal) mg/dL Ur Leukocyte Esterase (Negative) Urine Microscopic RBC (0-3) per hpf Urine Microscopic WBC (0-3) per hpf Ur Squamous Epith Cells (None-Few) per lpf Urine Bacteria (None-Few) per hpf Hyaline Casts (None-Few) per lpf Ur Culture Indicated? (NO) 03/01/17 03/01/17 03/01/17 Range/Units 15:15 15:15 16:17 WBC (4.3-11.1) K/mcL RBC (3.82-4.97) M/mcL Hgb (11.5-15.4) g/dL Hct (35.3-44.9) % MCV (83.0-100.0) fL MCH (28.0-33.3) pg MCHC (31.6-35.5) g/dL RDW (11.5-14.5) % Plt Count (140-400) K/mcL MPV (9.4-12.4) fL Immature Gran % (0-4) % Seg Neutrophils % % Lymphocytes % % Monocytes % % Eosinophils % % Basophils % % Neutrophils # (1.6-8.9) K/mcL Lymphocytes # (0.6-4.6) K/mcL Monocytes # (0.0-1.3) K/mcL Eosinophils # (0.0-0.6) K/mcL Basophils # (0.0-0.2) K/mcL Immature Plt Fraction (1.1-6.1) % PT (9.4-12.1) Seconds INR APTT (26.0-36.0) Seconds Sodium (136-145) mEq/L Potassium (3.5-4.5) mEq/L Chloride (98-109) mEq/L Carbon Dioxide (19-29) mEq/L BUN (7-20) mg/dL Creatinine (0.57-1.11) mg/dL Est GFR ( Amer) (> 60) Est GFR (Non-Af Amer) (> 60) BUN/Creatinine Ratio (6-26) Glucose (70-99) mg/dL Calculated Osmolality (280-300) Lactic Acid 1.1 (0.5-2.2) mmol/L Calcium (8.6-10.8) mg/dL Phosphorus (2.3-4.7) mg/dL Magnesium (1.6-2.6) mg/dL Total Bilirubin (0.2-1.2) mg/dL Direct Bilirubin (0.0-0.5) mg/dL Indirect Bilirubin (0.0-1.2) mg/dL AST (5-34) Units/L ALT (0-55) Units/L Alkaline Phosphatase (38-126) Units/L Troponin I 0.16 H* (0-0.03) ng/mL Serum Total Protein (6.0-8.3) g/dL Albumin (3.5-5.0) g/dL Globulin (2.4-3.5) g/dL Albumin/Globulin Ratio (1.1-2.2) Urine Color Yellow (Yellow) Urine Clarity Cloudy A (Clear) Urine pH 7.0 (5.0-8.0) pH Units Ur Specific [place] 1.028 H (1.010-1.025) Urine Protein >=1000 H (Neg-Trace) mg/dL Urine Glucose (UA) 500 H (Normal) mg/dL Urine Ketones Trace H (Negative) mg/dL Urine Blood Trace H (Negative) Urine Nitrite Negative (Negative) Urine Bilirubin Negative (Negative) Urine Urobilinogen Normal (Normal) mg/dL Ur Leukocyte Esterase Negative (Negative) Urine Microscopic RBC 0-3 (0-3) per hpf Urine Microscopic WBC 5-15 H (0-3) per hpf Ur Squamous Epith Cells Many H (None-Few) per lpf Urine Bacteria Few (None-Few) per hpf Hyaline Casts Few (None-Few) per lpf Ur Culture Indicated? NO (NO) - Radiology Data Radiology results reviewed: Yes I reviewed the patient's radiology results. Chest X-Ray 03/01/17 14:49 IMPRESSION: No evidence of acute cardiopulmonary disease. D/ / Joni Noland MD / Joni Noland MD Interpreting Provider: Joni Noland MD - EKG Data EKG attestation: Yes I reviewed and interpreted this EKG. EKG results narrative: 03/01/2017 at 14:43. Sinus tachycardia. Rate 109. AL 144. QRS 86. QTC 399. No acute ST elevation or depression. S.B.A.R. - S.B.A.R. Situation: Demographics, MOA Background: Presenting Complaint, Relevant PMH, Meds, & Allergies Assessment: Vital Signs, Course and respsone to treatment, Exam Concerns, Patient/Family Expectation, Pertinant Lab Results, Outstanding Labs Recommendation: Barrier(s) to disposition, Recommendation based on pending studies, treatments, or consults Ernestine Report Given to: Prakash Sinha Repor Time: 17:17 Attestation Statement - Attestation Attestation: I examined this patient and my medical decision-making was reviewed with the Resident Physician. I agree with the documented findings, disposition and treatment plan as described except to the extent set forth below. Fever, antibiotics initiated, pending cultures, will admit for further evaluation.
[2017-03-01] MEDS ORDERED: 0.9 % Sodium Chloride 1,000 ML IVC ONE (14:48)
[2017-03-01] MEDS ORDERED: Levofloxacin 750 MG/150 ML 750 MG/150 ML BAG IVPB ONE (15:41)
[2017-03-01] MEDS ORDERED: Cefepime HCl 1,000 MG in D5% in Water (Mini-Bag+) 100 ML IVPB ONE (15:42)
[2017-03-01 15:54] LABS: Hematocrit 27.7 % (35.3-44.9); Hemoglobin 8.8 g/dL (11.5-15.4); Immature Granulocytes % 0.5 % (0-4); Immature Platelets 3.5 % (1.1-6.1); Lymphocytes % 2.5 %; Mean Corpuscular HGB Conc 31.8 g/dL (31.6-35.5); Mean Corpuscular Volume 88.2 fL (83.0-100.0); Mean Platelet Volume 10.7 fL (9.4-12.4); Monocytes % 3.1 %; Platelet Count 162 K/mcL (140-400); Red Blood Count 3.14 M/mcL (3.82-4.97); Red Cell Distribution Width 15.2 % (11.5-14.5); Segmented Neutrophils % 93.5 %
[2017-03-01 15:55] LABS: Basophils % 0.3 %; Eosinophils % 0.1 %; Lymphocytes # 0.3 K/mcL (0.6-4.6); Monocytes # 0.4 K/mcL (0.0-1.3); Neutrophils # 11.2 K/mcL (1.6-8.9)
[2017-03-01 16:01] LABS: INR 1.3
[2017-03-01 16:03] LABS: Activated Partial Thrombo Time 29.8 Seconds (26.0-36.0)
[2017-03-01 16:08] LABS: Albumin 2.1 g/dL (3.5-5.0); Albumin/Globulin Ratio 0.5 (1.1-2.2); Bilirubin,Direct 0.1 mg/dL (0.0-0.5); Bilirubin,Indirect 0.1 mg/dL (0.0-1.2); Bilirubin,Total 0.2 mg/dL (0.2-1.2); Calcium 7.8 mg/dL (8.6-10.8); Globulin 4.2 g/dL (2.4-3.5); Magnesium 1.3 mg/dL (1.6-2.6); Phosphorous 3.4 mg/dL (2.3-4.7); Potassium 4.1 mEq/L (3.5-4.5); Total Protein 6.3 g/dL (6.0-8.3)
[2017-03-01] MEDS ORDERED: Metoclopramide 10 MG/2 ML VIAL IVP ONE (16:18)
[2017-03-01 16:45] LABS: Bilirubin,Urine Negative (Negative); Blood,Urine Trace (Negative); Clarity,Urine Cloudy (Clear); Color,Urine Yellow (Yellow); Glucose,Urine (UA) 500 mg/dL (Normal); Ketones,Urine Trace mg/dL (Negative); Protein,Urine >=1000 mg/dL (Neg-Trace); Specific Gravity,Urine 1.028 (1.010-1.025)
[2017-03-01 16:46] LABS: Leukocyte Esterase,Urine Negative (Negative); Nitrite,Urine Negative (Negative); Urobilinogen,Urine Normal (Normal)
[2017-03-01 16:57] LABS: Squamous Epithelial Cell,Urine Many per lpf (None-Few)
[2017-03-01 16:58] LABS: Hyaline Casts,Urine Few per lpf (None-Few)
[2017-03-01 16:59] LABS: Bacteria,Urine Few per hpf (None-Few); RBC,Urine 0-3 per hpf (0-3)
[2017-03-01] MEDS ORDERED: Naloxone 0.4 MG/ML INJ IVP PRN (20:12)
[2017-03-01] MEDS ORDERED: Ondansetron 4 MG/2 ML VIAL IVP PRN (20:12)
[2017-03-01] MEDS ORDERED: tiZANidine 4 MG TABLET PO PRN (20:15)
[2017-03-01] MEDS ORDERED: NON-FORMULARY MEDICATION 1 EACH EACH (Insulin Detemir [Levemir Flextouch] 10 UNIT) SQ SCH (21:00)
[2017-03-01] MEDS: Budesonide/Formoterol 160/4.5 MDI IH SCH (21:01)
[2017-03-01] MEDS: Insulin DETEMIR 100 UNIT/ML X5UNITS SQ SCH (22:15)
[2017-03-01] MEDS: Furosemide 40 MG TABLET PO SCH (22:26)
[2017-03-01] MEDS ORDERED: *HR* Dextrose 50 % in Water (Syg) 50 ML SYRINGE IVP PRN (23:50)
[2017-03-01] MEDS ORDERED: D5% in Water 1,000 ML IVC PRN (23:50)
[2017-03-01] MEDS ORDERED: Dextrose Gel 15 GM PO PRN ×2 (23:50)
--- NOTE | 2017-03-01 23:52 | Internal Med History&Physical ---
<Joseline Jamil - Last Filed: 03/02/17 00:47> Date of Encounter: 03/01/17 Time of Encounter: 21:00 Assessment and Plan (1) Fever of unknown origin Current visit: Yes Status: Acute 1 she has been experiencing general malaise nausea, pain and fever since for approximately a week. In dialysis today she had a temperature of 103. Degenerative source of infection -possibly related to hemodialysis catheter which has been replaced 3 times this month. She was also recently treated for pneumonia however x-ray does not indicate any pneumonia we will swab for flu. She also has a nonhealing ulcer to her right ankle. 2blood cultures have been obtained- 3she was given a fluid challenge in the ER-we will hold off on fluids for now due to ES RD. 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 insulin use: with residential use Qualified Code(s): E11.42 - Type 2 diabetes mellitus with diabetic polyneuropathy; Z79.4 - rn long term care (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; Z79.4 - rn long term care ( 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; Z79.4 - snf (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; Z79.4 - snf (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 (3) Hypertension Current visit: No Status: Chronic 1 we will continue with home medications 2 low sodium diet Qualifiers: Hypertension type: essential hypertension Qualified Code(s): I10 - Essential (primary) hypertension (4) Right foot ulcer Current visit: No Status: Acute 1 patient has a diabetic foot ulcer to right ankle. She was seen by Dr. Winn as an outpatient had it debrided in January. Surrounding tissue appears to be red we will consult podiatry. 2 to give present antibiotic coverage cefepime Qualifiers: Non-pressure ulcer stage: unspecified non-pressure ulcer stage Qualified Code(s): L97.519 - Non-pressure chronic ulcer of other part of right foot with unspecified severity (5) ESRD (end stage renal disease) on dialysis Current visit: No Status: Acute 1 patient's recently started dialysis and has been receiving dialysis for the past week. Nephrology has been consulted 2 we will monitor intake and output daily weights 3 void nephrotoxins 4 renal dose antibiotics (6) DVT prophylaxis Current visit: Yes Status: Acute Heparin subcutaneous Internal Medicine - H&P: HPI Chief complaint: fever Admitted From: Emergency Dept Plans for Post Hospital Care: Home History of present illness: Ms. Frederick is a 56 year old female past history of end-stage renal disease dialysis dependent fibromyalgia diabetes and hypertension. According to the patient she has been experiencing general malaise, lethargy headache and lethargy nausea and abdominal pain and fever since Saturday. While at dialysis today she had a fever up to 103. She denies any abdominal pain vomiting or diarrhea. Has some difficulty with her hemodialysis for has had to have her dialysis port replaced 3 times this month most recently on Saturday. She states she has noticed some redness around her chest port but no tenderness or drainage. She also has a chronic ulcer to lateral aspect of her right foot/ ankle. She has been seen by Dr. Winn and had debridement last month. She states she supposed to be soaking her foot. She also admits that she was recently treated for pneumonia in the past week. She denies any significant coughing or phlegm production. She presented to the ER with the above complaints. Cor ER records she did have slight leukocytosis 12 lactate was 1.1 chest x-ray was unremarkable. Blood cultures were not on patient was given cefepime and Levaquin and has been admitted for further workup evaluation. Tung patient appears very groggy states that she has been sleeping a lot and is tired. She is hemodynamically stable at this time review this case with Dr. Herrera who agrees with plan Past Med Surg Social Fam HX - Past Medical History Medical history: arthritis, asthma, CHF, CVA, diabetes, dialysis, fibromyalgia, GERD, hyperlipidemia, hypertension, myocardial infarction, renal disease, other Psychiatric history: anxiety, depression - Past Surgical History Surgical History: , orthopedic, other - Social History Smoking Status: Former smoker Smokeless Tobacco Status: No Alcohol use: none Drug use: none - Family History Mother Adopted: No Family Member Ethnicity: Non- Living Status: Age at : 60 Hx Family Cardiac Disorders: No Hx Family Respiratory Disorders: No Hx Family Cancer: Yes (Lung Ca) Hx Family GI Disorders: No Hx Family Genitourinary Disorders: No Hx Family Endocrine Disorder: No Hx Family Musculoskeletal Disorders: No Hx Family Neuromuscular Disorders: No Hx Family Neurologic Disorders: No Hx Family HEENT Disorders: No Hx Family Autoimmune Disorders: No Hx Family Reproductive Disorders: No Hx Family Psychosocial Disorders: No Hx Family Medical Disorders: No Father Adopted: No Family Member Ethnicity: Non- Living Status: Age at : 60 Cause of : Lung Ca Hx Family Cardiac Disorders: No Hx Family Respiratory Disorders: Yes Hx Family Cancer: Yes (Lung Ca) Hx Family GI Disorders: No Hx Family Genitourinary Disorders: No Hx Family Endocrine Disorder: No Hx Family Musculoskeletal Disorders: No Hx Family Neuromuscular Disorders: No Hx Family Neurologic Disorders: No Hx Family HEENT Disorders: No Hx Family Autoimmune Disorders: No Hx Family Reproductive Disorders: No Hx Family Psychosocial Disorders: No Hx Family Medical Disorders: No Internal Medicine - H&P: Meds Aspirin Enteric Coated [Aspirin EC] 81 mg PO DAILY 04/08/15 [History] Multivitamin [Multi-Day Vitamins] 1 tab PO DAILY 04/08/15 [History] Simvastatin [Zocor] 40 mg PO DAILY 04/08/15 [History] Omeprazole [PriLOSEC] 20 mg PO DAILY 12/06/15 [History] ALPRAZolam [Xanax 0.5 MG Tablet] 0.5 mg PO TID PRN 06/27/16 [History] Tizanidine HCl 2 mg PO TID PRN 06/27/16 [History] Budesonide/Formoterol 160/4.5 [Symbicort 160/4.5] 2 puff IH BIDR #1 inhaler [Rx] Ergocalciferol (VITAMIN D2) [Vitamin D2] 50,000 unit PO QWEEK 01/16/17 [History] Insulin DETEMIR [Levemir Flextouch] 10 unit SQ BID 01/16/17 [History] Iron Polysaccharide Complex [Ferrex 150] 150 mg PO DAILY 01/16/17 [History] Metoprolol [Lopressor] 112.5 mg PO BID 01/16/17 [History] [place]-3/Dha/Epa/Fish Oil [Fish Oil 1,000 mg Softgel] 4 cap PO DAILY 01/16/17 [ History] Losartan Potassium [Cozaar] 100 mg PO DAILY #30 01/21/17 [Rx] Calcium Acetate [Phos-LO] 667 mg PO TIDWM 02/25/17 [History] Furosemide [Lasix] 40 mg PO BID 02/25/17 [History] Insulin LISPRO [Humalog Kwikpen U-100] 5 unit SQ TID PRN 02/25/17 [History] NIFEdipine [Nifedipine ER] 60 mg PO DAILY 02/25/17 [History] 3 Allergy/AdvReac Type Severity Reaction Status Date / Time amitriptyline Allergy feels drunk Verified 02/24/17 22:56 amlodipine Allergy See Verified 02/24/17 22:56 Comments Amoxicillin [From Augmentin] Allergy Itching Verified 02/24/17 22:56 clavulanic acid Allergy Itching Verified 02/24/17 22:56 [From Augmentin] gabapentin [From Neurontin] Allergy make me Verified 02/24/17 22:56 sick at my stomach pregabalin [From Lyrica] Allergy Swelling Verified 02/24/17 22:56 of Lip/Tongue/Throat CAROLYN Inhibitors AdvReac Palpitation Verified 02/24/17 22:56 s fenofibrate [From Tricor] AdvReac Drowsy Verified 02/24/17 22:56 vancomycin AdvReac See Verified 02/24/17 22:56 Comments All Systems PM: A 10-system review of systems was performed and is negative for pertinent findings except as documented above in the HPI. - Constitutional Constitutional: fatigue, fever(s), lethargy, no chills, no night sweats - EENT Eyes: no change in vision, no discharge, no pain, no photophobia - Cardiovascular Cardiovascular ROS IM: no chest pain, no diaphoresis, no dyspnea, no lightheadedness, no palpitations, no syncope - Respiratory Respiratory: cough - Gastrointestinal Gastrointestinal: nausea, no abdominal pain, no diarrhea, no hematemesis, no hematochezia, no melena, no vomiting - Genitourinary Genitourinary: no change in urinary stream, no dysuria, no flank pain, no hematuria - Musculoskeletal Musculoskeletal ROS IM: no numbness, no tingling - Integumentary Integumentary IM: no rash, no unusual bruising - Neurological Neurological ROS: no confusion, no convulsions, no focal weakness, no numbness, no tingling, no tremor(s) - Hematologic/Lymphatic Hematologic/Lymphatic: no easy bruising - Constitutional Vitals: Temp Pulse Resp BP Pulse Ox 103.1 F H 99 19 168/74 92 03/01/17 23:19 03/01/17 23:19 03/01/17 23:19 03/01/17 23:19 03/01/17 23:19 General appearance: Present: A&O X 3, answers questions appropriately - Head Head exam: Present: atraumatic, normocephalic - Eye Eye exam: Present: PERRL, conjuntiva pink, sclera anicteric Pupils: Present: PERRL - Neck Neck exam general surgery: Present: supple, trachea midline. Absent: lymphadenopathy - Respiratory Respiratory exam: Present: CTAB. Absent: accessory muscle use, rales, rhonchi, wheezes - Cardiovascular Cardiovascular exam: Present: RRR, +S1, +S2. Absent: diastolic murmur, gallop, rubs, systolic murmur - GI/Abdominal GI/Abdominal exam: Present: normal bowel sounds, soft, no peritoneal signs. Absent: distended, tenderness - Extremities Exam Extremities exam: Present: warm, radial pulses palpable and symmetrical. Absent : calf tenderness, cyanotic, pedal edema - Expanded Lower Extremities Exam 1 - ulcer to Lateral aspect of R ankle. Surrounding tissue appears red. - Neurological Exam Neurological exam: Present: CN II-XII intact, oriented X3, no focal deficits. Absent: pronater drift, facial droop, speech deficit - Skin Skin exam: Present: dry, intact Internal Med - H&P Results - Labs CBC & Chem 7: 03/01/17 15:15 03/01/17 15:15 - Diagnostic Studies Other Images Additional comments: Chest X-Ray 03/01/17 14:49 IMPRESSION: No evidence of acute cardiopulmonary disease. D/ / Joni Noland MD / Joni Noland MD Interpreting Provider: Joni Noland MD <Chintan Herrera - Last Filed: 03/02/17 03:19> Date of Encounter: 03/01/17 Assessment and Plan (1) Elevated troponin Current visit: Yes Status: Chronic Clinically elevated, likely due to poor renal clearance in the setting of ESRD, no complaints of chest pain, will repeat with AM labs Internal Medicine - H&P: HPI History of present illness: Ms. Frederick is a 56 year old female All Systems PM: A 10-system review of systems was performed and is negative for pertinent findings except as documented above in the HPI. - Constitutional Vitals: Temp Pulse Resp BP Pulse Ox 100.5 F H 94 19 170/78 96 03/02/17 02:52 03/02/17 02:52 03/02/17 02:52 03/02/17 02:52 03/02/17 02:52 Internal Med - H&P Results - Labs CBC & Chem 7: 03/01/17 15:15 03/01/17 15:15 - Diagnostic Studies Chest x-ray Status: image reviewed by me - Attending Attestation I personally interviewed and examined this patient and my medical decision- making was reviewed with the Advanced Practice Nurse. I agree with the documented findings, disposition and treatment plan as described. Chintan Herrera MD, MPH Hospitalist
[2017-03-02] MEDS ORDERED: Cefepime HCl 1,000 MG in D5% in Water (Mini-Bag+) 100 ML IVPB SCH (01:00)
[2017-03-02] MEDS ORDERED: Magnesium Sulfate 2 GM in D5% in Water 100 ML IVPB ONE (01:26)
[2017-03-02] MEDS: Insulin LISPRO 300 UNITS/3 ML VIAL SQ SCH ×5 (03:14→21:30)
[2017-03-02] MEDS: *HR* Heparin 5,000 UNIT/ML VIAL SQ SCH ×2 (05:59→17:05)
[2017-03-02 06:04] LABS: Basophils % 0.3 %; Eosinophils % 0.1 %; Hematocrit 25.7 % (35.3-44.9); Hemoglobin 7.9 g/dL (11.5-15.4); Immature Granulocytes % 0.5 % (0-4); Lymphocytes # 0.9 K/mcL (0.6-4.6); Lymphocytes % 8.9 %; Mean Corpuscular HGB Conc 30.7 g/dL (31.6-35.5); Mean Corpuscular Hemoglobin 27.3 pg (28.0-33.3); Mean Corpuscular Volume 88.9 fL (83.0-100.0); Mean Platelet Volume 10.7 fL (9.4-12.4); Monocytes # 0.8 K/mcL (0.0-1.3); Monocytes % 7.6 %; Neutrophils # 8.3 K/mcL (1.6-8.9); Platelet Count 147 K/mcL (140-400); Red Blood Count 2.89 M/mcL (3.82-4.97); Red Cell Distribution Width 15.2 % (11.5-14.5); Segmented Neutrophils % 82.6 %
[2017-03-02 06:16] LABS: Calcium 7.5 mg/dL (8.6-10.8); Magnesium 1.4 mg/dL (1.6-2.6); Potassium 4.2 mEq/L (3.5-4.5)
[2017-03-02 06:21] LABS: Acinetobacter baumannii by PCR Not Detected (Not Detect); Candida albicans by PCR Not Detected (Not Detect); Candida glabrata by PCR Not Detected (Not Detect); Candida krusei by PCR Not Detected (Not Detect); Candida parapsilosis by PCR Not Detected (Not Detect); Candida tropicalis by PCR Not Detected (Not Detect); Enterococcus by PCR Not Detected (Not Detect); Escherichia coli by PCR Not Detected (Not Detect); Klebsiella oxytoca by PCR Not Detected (Not Detect); Klebsiella pneumoniae by PCR Not Detected (Not Detect); Pseudomonas aeruginosa by PCR Not Detected (Not Detect); Serratia marcescens by PCR Not Detected (Not Detect); Staphylococcus aureus by PCR ***DETECTED*** (Not Detect); Streptococcus agalactiae(B)PCR Not Detected (Not Detect); Streptococcus by PCR Not Detected (Not Detect); Streptococcus pneumoniae PCR Not Detected (Not Detect); Streptococcus pyogenes (A) PCR Not Detected (Not Detect); mecA Methicillin-Resist Gene Not Detected (Not Detect)
[2017-03-02] MEDS: Budesonide/Formoterol 160/4.5 MDI IH SCH ×2 (07:47→22:39)
[2017-03-02] MEDS: Iron Polysaccharide Complex 150 MG CAPSULE PO SCH (09:01)
[2017-03-02] MEDS: Pantoprazole 40 MG VIAL IVP SCH (09:01)
[2017-03-02] MEDS: Calcium Acetate 667 MG CAPSULE PO SCH ×3 (09:02→17:05)
[2017-03-02] MEDS: Multivit/Ca/Min/Fe/FA 1 TAB TABLET PO SCH (09:02)
[2017-03-02] MEDS: (Omega-3/Dha/Epa/Fish Oil [Fish Oil 1,000 Mg Softgel]) PO SCH (09:02)
[2017-03-02] MEDS: Aspirin Enteric Coated 81 MG Tablet PO SCH (09:02)
[2017-03-02] MEDS: NIFEdipine XL (24 HR) 60 MG TAB.ER.24 PO SCH (09:02)
[2017-03-02] MEDS: Furosemide 40 MG TABLET PO SCH ×2 (09:02→17:04)
[2017-03-02] MEDS: Insulin DETEMIR 100 UNIT/ML X5UNITS SQ SCH ×2 (09:04→21:29)
[2017-03-02] MEDS ORDERED: *HR* HYDROcodone/Acet 5/325 mg TABLET PO ONE (12:11)
--- NOTE | 2017-03-02 15:47 | Nephrology Consult Note ---
Date of Encounter: 03/02/17 Time of Encounter: 15:44 Assessment and Plan (1) Fever of unknown origin Current Visit: Yes Status: Acute Patient's fever is decreasing. WBC improving. Tachycardia resolved. Will check blood culture from HD line. Line removal vs. line exchange on Saturday. No other source of infection at this time. (2) ESRD (end stage renal disease) on dialysis Current Visit: No Status: Acute HD MWF Renal diet. Renal dose medications. (3) Anemia in chronic illness Current Visit: No Status: Acute Monitor hemoglobin. No active bleeding. (4) Diabetes Current Visit: No Status: Chronic Per primary team. 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 Recommend wound care consult. Qualifiers: Diabetes mellitus type: type 2 Laterality: right Qualified Code(s): E11.621 - Type 2 diabetes mellitus with foot ulcer; L97.519 - Non-pressure chronic ulcer of other part of right foot with unspecified severity History of Present Illness - Reason for Consult Consult date: 03/02/17 end stage renal disease - Chief Complaint ESRD - History of Present Illness Ms. Frederick is a 56 yo woman with a history of ESRD who presents for the evaluation of fever. Patient reports she is feeling slightly better at the time of my evaluation. She denies chest pain and reports that her breathing is better. Past Med Surg Social Fam HX - Past Medical History Medical history: arthritis, asthma, CHF, CVA, diabetes, dialysis, fibromyalgia, GERD, hyperlipidemia, hypertension, myocardial infarction, renal disease, other Psychiatric history: anxiety, depression - Past Surgical History Surgical History: , orthopedic, other - Social History Smoking Status: Former smoker Smokeless Tobacco Status: No Alcohol use: none Drug use: none - Family History Mother Adopted: No Family Member Ethnicity: Non- Living Status: Age at : 60 Hx Family Cardiac Disorders: No Hx Family Respiratory Disorders: No Hx Family Cancer: Yes (Lung Ca) Hx Family GI Disorders: No Hx Family Genitourinary Disorders: No Hx Family Endocrine Disorder: No Hx Family Musculoskeletal Disorders: No Hx Family Neuromuscular Disorders: No Hx Family Neurologic Disorders: No Hx Family HEENT Disorders: No Hx Family Autoimmune Disorders: No Hx Family Reproductive Disorders: No Hx Family Psychosocial Disorders: No Hx Family Medical Disorders: No Father Adopted: No Family Member Ethnicity: Non- Living Status: Age at : 60 Cause of : Lung Ca Hx Family Cardiac Disorders: No Hx Family Respiratory Disorders: Yes Hx Family Cancer: Yes (Lung Ca) Hx Family GI Disorders: No Hx Family Genitourinary Disorders: No Hx Family Endocrine Disorder: No Hx Family Musculoskeletal Disorders: No Hx Family Neuromuscular Disorders: No Hx Family Neurologic Disorders: No Hx Family HEENT Disorders: No Hx Family Autoimmune Disorders: No Hx Family Reproductive Disorders: No Hx Family Psychosocial Disorders: No Hx Family Medical Disorders: No Medications and Allergies Aspirin Enteric Coated [Aspirin EC] 81 mg PO DAILY 04/08/15 [History] Multivitamin [Multi-Day Vitamins] 1 tab PO DAILY 04/08/15 [History] Simvastatin [Zocor] 40 mg PO DAILY 04/08/15 [History] Omeprazole [PriLOSEC] 20 mg PO DAILY 12/06/15 [History] ALPRAZolam [Xanax 0.5 MG Tablet] 0.5 mg PO TID PRN 06/27/16 [History] Tizanidine HCl 2 mg PO TID PRN 06/27/16 [History] Budesonide/Formoterol 160/4.5 [Symbicort 160/4.5] 2 puff IH BIDR #1 inhaler [Rx] Ergocalciferol (VITAMIN D2) [Vitamin D2] 50,000 unit PO QWEEK 01/16/17 [History] Insulin DETEMIR [Levemir Flextouch] 10 unit SQ BID 01/16/17 [History] Iron Polysaccharide Complex [Ferrex 150] 150 mg PO DAILY 01/16/17 [History] Metoprolol [Lopressor] 112.5 mg PO BID 01/16/17 [History] [place]-3/Dha/Epa/Fish Oil [Fish Oil 1,000 mg Softgel] 4 cap PO DAILY 01/16/17 [ History] Losartan Potassium [Cozaar] 100 mg PO DAILY #30 01/21/17 [Rx] Calcium Acetate [Phos-LO] 667 mg PO TIDWM 02/25/17 [History] Furosemide [Lasix] 40 mg PO BID 02/25/17 [History] Insulin LISPRO [Humalog Kwikpen U-100] 5 unit SQ TID PRN 02/25/17 [History] NIFEdipine [Nifedipine ER] 60 mg PO DAILY 02/25/17 [History] 3 Allergy/AdvReac Type Severity Reaction Status Date / Time amitriptyline Allergy feels drunk Verified 02/24/17 22:56 amlodipine Allergy See Verified 02/24/17 22:56 Comments Amoxicillin [From Augmentin] Allergy Itching Verified 02/24/17 22:56 clavulanic acid Allergy Itching Verified 02/24/17 22:56 [From Augmentin] gabapentin [From Neurontin] Allergy make me Verified 02/24/17 22:56 sick at my stomach pregabalin [From Lyrica] Allergy Swelling Verified 02/24/17 22:56 of Lip/Tongue/Throat CAROLYN Inhibitors AdvReac Palpitation Verified 02/24/17 22:56 s fenofibrate [From Tricor] AdvReac Drowsy Verified 02/24/17 22:56 vancomycin AdvReac See Verified 02/24/17 22:56 Comments Review of Systems All Systems: reviewed and no additional remarkable complaints except as stated ( as documented in the HPI) Exam - Vital Signs Vital signs: Initial Vital Signs Temp Pulse Resp BP Pulse Ox 103 F H 105 18 192/86 96 03/01/17 14:28 03/01/17 14:28 03/01/17 14:28 03/01/17 14:28 03/01/17 14:28 Vital Signs - Last 8 Hours Temp Pulse Resp BP Pulse Ox 03/02/17 11:32 98.4 F 78 16 177/77 97 03/02/17 09:00 96 03/02/17 07:48 17 96 Intake and Output 03/01/17 03/02/17 03/02/17 23:59 07:59 15:59 Intake Total 480 / 1580 400 / 400 480 / 480 Output Total 0 / 0 Balance 480 / 1580 400 / 400 480 / 480 Intake: Oral 400 / 400 480 / 480 Free Water 480 / 480 Output: Urine 0 / 0 Other: Meal Lunch Percent of Meal Consumed 20% Weight 108.499 kg Blood Glucose* 360 144 250 - General Appearance General appearance: well-developed, well-nourished EENT: ATNC Neck: supple Respiratory: clear Cardiology: edema, regular rate, regular rhythm - Dialysis Access Dialysis Vascular Access: Venous Catheter Gastrointestinal: no tenderness, obese Integumentary: warm and dry Neurologic: alert and oriented x3 Musculoskeletal: no cyanosis Psychiatric: mood/affect appropriate Results - Lab Results 03/02/17 05:43 03/02/17 05:43 Most recent lab results Calcium 7.5 mg/dL (8.6-10.8) L 03/02/17 05:43 Phosphorus 3.4 mg/dL (2.3-4.7) 03/01/17 15:15 Magnesium 1.4 mg/dL (1.6-2.6) L 03/02/17 05:43 Consult Discharge Plan - Plan Referrals: Suresh Mendoza MD [Primary Care Provider] -
--- NOTE | 2017-03-02 16:19 | Internal Med Progress Note ---
Date of Encounter: 03/02/17 Time of Encounter: 16:17 - Assessment and plan (1) Sepsis Current Visit: Yes Status: Acute Assessment and plan: This is due to Staphylococcus is on serology PCR. Unsure if this is MSSA or MRSA at the moment Highly suspicious that source of infection is related to hemodialysis catheter which has been replaced 3 times already this month. She does note that she has nonhealing ulcer of her right ankle also on the bottom of her foot on the plantar surface. Also notes an ulcer in her abdomen which is located in between the folds of pannus. - Continue cefepime and linezolid. Patient cannot tolerate vancomycin. - Follow-up Blood culture sensitivities - Follow up blood cultures obtained from HD line - Wound culture of abdominal fold and nonhealing ulcers. - Recurrence of infective lines we will check for vegetations. We will obtain a 2-D echo. Qualifiers: Sepsis type: sepsis due to unspecified organism Qualified Code(s): A41.9 - Sepsis, unspecified organism (2) Anemia in chronic illness Current Visit: No Status: Acute (3) Diabetes Current Visit: No Status: Chronic Assessment and plan: Continue Levemir and sliding scale. Goal blood sugars 140-180 Qualifiers: Diabetes mellitus type: type 2 Diabetes mellitus complication status: with neurologic complications Diabetes mellitus complication detail: with polyneuropathy Diabetes mellitus long-term insulin use: with long-term use Qualified Code(s): E11.42 - Type 2 diabetes mellitus with diabetic polyneuropathy; Z79.4 - intermediate manager (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; Z79.4 - alf ( 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; Z79.4 - alf (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; Z79.4 - intermediate manager (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 (4) Elevated troponin Current Visit: Yes Status: Chronic Assessment and plan: Due to patient's end-stage renal disease. She is at her baseline (5) ESRD (end stage renal disease) on dialysis Current Visit: No Status: Acute Assessment and plan: Nephrology following, recommendations appreciated. (6) Foot ulcer due to secondary DM Current Visit: No Status: Chronic Assessment and plan: It is more likely to be related to HD catheter, but we will obtain wound culture (7) Morbid obesity Current Visit: No Status: Chronic (8) Poorly controlled diabetes mellitus Current Visit: No Status: Acute (9) Tobacco abuse Current Visit: No Status: Chronic - Subjective Interval history: Patient overall feels malaise and fatigue. She is not aware of any recent infection but does note she has a wound under her pannus of her abdomen, on the bottom of her foot and on the lateral aspect of her right ankle. Port site is currently clean but according to overnight nurse there was purulent drainage from this area. MAXIMUM TEMPERATURE was 103.1 area. Blood cultures came back positive for staph aureus. - Constitutional Vitals: Temp Pulse Resp BP Pulse Ox 98.4 F 78 16 177/77 97 03/02/17 11:32 03/02/17 11:32 03/02/17 11:32 03/02/17 11:32 03/02/17 11:32 General appearance: Present: A&O X 3, answers questions appropriately Internal Medicine: Result - Labs CBC & Chem 7: 03/02/17 05:43 03/02/17 05:43 Labs: Short CBC 03/02/17 Range/Units 05:43 WBC 10.1 (4.3-11.1) K/mcL Hgb 7.9 L (11.5-15.4) g/dL Hct 25.7 L (35.3-44.9) % Plt Count 147 (140-400) K/mcL Neutrophils # 8.3 (1.6-8.9) K/mcL BMP 03/02/17 05:43 Sodium 132 L Potassium 4.2 Chloride 100 Carbon Dioxide 24 BUN 30 H Creatinine 4.55 H Glucose 150 H Calcium 7.5 L Cardiac Enzymes 03/02/17 03/02/17 Range/Units 05:43 09:29 Troponin I 0.17 H* 0.16 H* (0-0.03) ng/mL - ABG Interpretation ABG results: PT/INR, D-dimer PT 14.0 Seconds (9.4-12.1) H 03/01/17 15:15 Consult Discharge Plan - Plan Referrals: Suresh Mendoza MD [Primary Care Provider] -
[2017-03-02] MEDS: Acetaminophen 325 MG TABLET PO PRN (17:04)
[2017-03-02] MEDS ORDERED: Nystatin POWDER 30 GM BOTTLE TP PRN (17:31)
[2017-03-02] MEDS: Cefepime HCl 500 MG in D5% in Water 100 ML IVPB SCH (18:36)
[2017-03-03] MEDS: *HR* Heparin 5,000 UNIT/ML VIAL SQ SCH ×2 (05:25→17:12)
[2017-03-03 05:35] LABS: Basophils % 0.3 %; Eosinophils # 0.1 K/mcL (0.0-0.6); Eosinophils % 1.2 %; Hematocrit 25.9 % (35.3-44.9); Hemoglobin 8.2 g/dL (11.5-15.4); Immature Granulocytes % 0.4 % (0-4); Lymphocytes # 0.9 K/mcL (0.6-4.6); Lymphocytes % 12.5 %; Mean Corpuscular HGB Conc 31.7 g/dL (31.6-35.5); Mean Corpuscular Hemoglobin 27.9 pg (28.0-33.3); Mean Corpuscular Volume 88.1 fL (83.0-100.0); Mean Platelet Volume 11.3 fL (9.4-12.4); Monocytes # 0.6 K/mcL (0.0-1.3); Monocytes % 8.9 %; Neutrophils # 5.3 K/mcL (1.6-8.9); Platelet Count 153 K/mcL (140-400); Red Blood Count 2.94 M/mcL (3.82-4.97); Red Cell Distribution Width 14.9 % (11.5-14.5); Segmented Neutrophils % 76.7 %
[2017-03-03 05:41] LABS: Calcium 8.2 mg/dL (8.6-10.8); Potassium 4.3 mEq/L (3.5-4.5)
[2017-03-03] MEDS ORDERED: Ondansetron ODT 4 MG TAB.RAPDIS SL PRN (07:30)
[2017-03-03] MEDS: Insulin LISPRO 300 UNITS/3 ML VIAL SQ SCH ×4 (07:48→20:44)
[2017-03-03] MEDS: Iron Polysaccharide Complex 150 MG CAPSULE PO SCH (08:04)
[2017-03-03] MEDS: Aspirin Enteric Coated 81 MG Tablet PO SCH (08:05)
[2017-03-03] MEDS: Multivit/Ca/Min/Fe/FA 1 TAB TABLET PO SCH (08:05)
[2017-03-03] MEDS: Furosemide 40 MG TABLET PO SCH ×2 (08:05→17:12)
[2017-03-03] MEDS: Calcium Acetate 667 MG CAPSULE PO SCH ×3 (08:05→17:12)
[2017-03-03] MEDS: NIFEdipine XL (24 HR) 60 MG TAB.ER.24 PO SCH (08:05)
[2017-03-03] MEDS: (Omega-3/Dha/Epa/Fish Oil [Fish Oil 1,000 Mg Softgel]) PO SCH (08:06)
[2017-03-03] MEDS: Insulin DETEMIR 100 UNIT/ML X5UNITS SQ SCH ×2 (09:10→20:45)
[2017-03-03] MEDS: Pantoprazole 40 MG VIAL IVP SCH (10:30)
[2017-03-03] MEDS: Budesonide/Formoterol 160/4.5 MDI IH SCH ×2 (10:33→22:12)
[2017-03-03] MEDS ORDERED: hydrALAZINE 10 MG TABLET PO PRN (10:35)
--- NOTE | 2017-03-03 10:59 | Nephrology Progress Note ---
Date of Encounter: 03/03/17 Time of Encounter: 10:57 - Assessment and Plan (1) ESRD (end stage renal disease) on dialysis Current Visit: No Status: Acute HD MWF Renal diet Adjust medications for renal function. Dialysis after line exchange on Saturday if line culture are negative (ordered Saturday, but somehow were "lost in the tube system" and had to be redrawn on Saturday). (2) Fever of unknown origin Current Visit: Yes Status: Acute Patient with probable sepsis from line infection. She has responded well to antibiotics. Will order exchange of her tunnelled line. She can have dialysis afterward. (3) Anemia in chronic illness Current Visit: No Status: Acute hemoglobin stable monitor for bleeding. (4) Diabetes Current Visit: No Status: Chronic per primary team. 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 She has improved with antibiotics with resolution of her leukocytosis and now afebrile. She is getting a line at the time of my evaluation. Objective - Vital Signs Vital signs: Vital Signs Temp Pulse Resp BP Pulse Ox 03/03/17 07:21 98.1 F 74 18 175/75 95 03/03/17 04:35 97.6 F 78 18 145/78 96 03/03/17 00:25 98.1 F 70 18 149/68 98 03/02/17 22:39 18 95 03/02/17 19:24 98.3 F 72 16 126/66 98 03/02/17 16:55 98.3 F 75 16 132/72 98 03/02/17 11:32 98.4 F 78 16 177/77 97 Intake and Output 03/02/17 03/03/17 03/03/17 23:59 07:59 15:59 Intake Total 300 / 300 120 / 120 Balance 300 / 300 120 / 120 Intake: IV Fluids 300 / 300 Zyvox Premix 600mg/300mL 600 mg 300 / 300 In 300 ml @ 150 mls/hr IVPB Q12HR [facility] Rx#:[id number] Oral 120 / 120 Other: Meal Breakfast Percent of Meal Consumed 50% Weight 106.866 kg Blood Glucose* 211 124 Patient Weight 03/03/17 23:59 Weight 106.866 kg - General Appearance General appearance: Present: well-developed, well-nourished EENT: Present: ATNC Additional Comments: Respirations are unlabored. Neurologic: Present: alert and oriented x3 Psychiatric: Present: mood/affect appropriate - Lab 03/03/17 04:17 03/03/17 04:17 Most recent lab results Calcium 8.2 mg/dL (8.6-10.8) L 03/03/17 04:17 Phosphorus 3.4 mg/dL (2.3-4.7) 03/01/17 15:15 Magnesium 1.4 mg/dL (1.6-2.6) L 03/02/17 05:43 Consult Discharge Plan - Plan Referrals: Suresh Mendoza MD [Primary Care Provider] -
--- NOTE | 2017-03-03 11:09 | Electrocardiograph Report ---
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
--- NOTE | 2017-03-03 12:01 | Electrocardiograph Report ---
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
--- NOTE | 2017-03-03 15:53 | Internal Med Progress Note ---
Date of Encounter: 03/03/17 Time of Encounter: 15:50 - Assessment and plan (1) Sepsis Current Visit: Yes Status: Acute Assessment and plan: We will continue cefepime and linezolid for now. Follow up with blood cultures that were obtained today. Follow up wound cultures. Follow up with final read of echocardiogram that was performed today, assess for any vegetations. 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 Scheduled for line exchange. Follow-up blood cultures prior to this. (5) Foot ulcer due to secondary DM Current Visit: No Status: Chronic Assessment and plan: Wound care is following and treating. (6) Morbid obesity Current Visit: No Status: Chronic (7) Tobacco abuse Current Visit: No Status: Chronic (8) Hypertension Current Visit: No Status: Chronic Assessment and plan: SBP running in 170s and goes to 150s after hydralazine 10 mg IV. Will switch to PO to have longer lasting effect. Until her home BP meds are held, May need to change therapy to labetolol if HTN not controlled. She is already taking a BB metoprolol, though it is a low dose 12.5 mg BID which works more on heart rate than BP. Qualifiers: Hypertension type: essential hypertension Qualified Code(s): I10 - Essential (primary) hypertension - Subjective Interval history: Patient feels significantly better than she did yesterday. She has more energy and has been afebrile. She had no acute events. She is scheduled for dialysis after line exchange tomorrow if the cultures are negative. Note that an order blood cultures were reported to be lost in the tube system and so had to be re- drawn today. - Constitutional Vitals: Temp Pulse Resp BP Pulse Ox 98 F 81 18 179/74 97 03/03/17 11:43 03/03/17 11:43 03/03/17 11:43 03/03/17 11:43 03/03/17 11:43 General appearance: Present: A&O X 3, answers questions appropriately Exam: - Head Head exam: atraumatic, normocephalic, normal inspection - Eye Eye exam: Present: normal appearance, PERRL, EOMI - ENT ENT exam: normal exam, normal oropharynx, mucous membranes moist - Neck Neck exam: Present: normal inspection, full ROM, trachea midline - Chest Chest inspection: Present: symmetric chest wall rise, other (right chest port present new dressing. No purulent drainage currently.) - Respiratory Respiratory exam: Present: normal lung sounds bilaterally. Absent: respiratory distress, wheezes - Cardiovascular Cardiovascular exam: Present: normal rhythm, tachycardia, normal heart sounds - Abdominal Exam Abdominal exam: Present: soft, Non-Tender. + erythema and single ulcered lesion in fold of abdomen - Extremities Exam Extremities exam: Present: normal inspection, full ROM. Absent: tenderness, pedal edema - Neurological Exam Neurological exam: Present: alert, oriented X3 - Psychiatric Psychiatric exam: Present: normal affect, normal mood - Skin Skin exam: Present: warm, dry Internal Medicine: Result - Labs CBC & Chem 7: 03/03/17 04:17 03/03/17 04:17 Labs: Short CBC 03/03/17 Range/Units 04:17 WBC 7.0 (4.3-11.1) K/mcL Hgb 8.2 L (11.5-15.4) g/dL Hct 25.9 L (35.3-44.9) % Plt Count 153 (140-400) K/mcL Neutrophils # 5.3 (1.6-8.9) K/mcL BMP 03/03/17 04:17 Sodium 136 Potassium 4.3 Chloride 102 Carbon Dioxide 23 BUN 38 H Creatinine 5.41 H Glucose 115 H Calcium 8.2 L - ABG Interpretation ABG results: PT/INR, D-dimer PT 14.0 Seconds (9.4-12.1) H 03/01/17 15:15 Consult Discharge Plan - Plan Referrals: Suresh Mendoza MD [Primary Care Provider] -
[2017-03-03] MEDS: Cefepime HCl 500 MG in D5% in Water 100 ML IVPB SCH (17:10)
[2017-03-03 18:21] LABS: Albumin/Globulin Ratio 0.4 (1.1-2.2); Bilirubin,Direct 0.1 mg/dL (0.0-0.5); Bilirubin,Indirect 0.1 mg/dL (0.0-1.2); Bilirubin,Total 0.2 mg/dL (0.2-1.2); Globulin 4.5 g/dL (2.4-3.5); Total Protein 6.2 g/dL (6.0-8.3)
[2017-03-03 18:37] LABS: Albumin 1.7 g/dL (3.5-5.0)
[2017-03-04] MEDS: hydrALAZINE 25 MG TABLET PO SCH ×3 (00:36→15:44)
[2017-03-04] MEDS: Acetaminophen 325 MG TABLET PO PRN (00:40)
[2017-03-04 05:47] LABS: Basophils % 0.5 %; Eosinophils # 0.1 K/mcL (0.0-0.6); Eosinophils % 1.4 %; Hematocrit 25.1 % (35.3-44.9); Hemoglobin 7.8 g/dL (11.5-15.4); Immature Granulocytes % 0.3 % (0-4); Lymphocytes # 1.5 K/mcL (0.6-4.6); Lymphocytes % 22.6 %; Mean Corpuscular HGB Conc 31.1 g/dL (31.6-35.5); Mean Corpuscular Hemoglobin 27.5 pg (28.0-33.3); Mean Corpuscular Volume 88.4 fL (83.0-100.0); Monocytes # 0.6 K/mcL (0.0-1.3); Monocytes % 9.8 %; Neutrophils # 4.2 K/mcL (1.6-8.9); Platelet Count 155 K/mcL (140-400); Red Blood Count 2.84 M/mcL (3.82-4.97); Red Cell Distribution Width 14.9 % (11.5-14.5); Segmented Neutrophils % 65.4 %
[2017-03-04 05:55] LABS: Acinetobacter baumannii by PCR Not Detected (Not Detect); Candida albicans by PCR Not Detected (Not Detect); Candida glabrata by PCR Not Detected (Not Detect); Candida krusei by PCR Not Detected (Not Detect); Candida parapsilosis by PCR Not Detected (Not Detect); Candida tropicalis by PCR Not Detected (Not Detect); Enterococcus by PCR Not Detected (Not Detect); Escherichia coli by PCR Not Detected (Not Detect); Klebsiella oxytoca by PCR Not Detected (Not Detect); Klebsiella pneumoniae by PCR Not Detected (Not Detect); Pseudomonas aeruginosa by PCR Not Detected (Not Detect); Serratia marcescens by PCR Not Detected (Not Detect); Staphylococcus aureus by PCR ***DETECTED*** (Not Detect); Streptococcus agalactiae(B)PCR Not Detected (Not Detect); Streptococcus by PCR Not Detected (Not Detect); Streptococcus pneumoniae PCR Not Detected (Not Detect); Streptococcus pyogenes (A) PCR Not Detected (Not Detect); mecA Methicillin-Resist Gene ***DETECTED*** (Not Detect)
[2017-03-04 05:59] LABS: Calcium 7.7 mg/dL (8.6-10.8); Potassium 4.3 mEq/L (3.5-4.5)
[2017-03-04] MEDS: *HR* Heparin 5,000 UNIT/ML VIAL SQ SCH ×2 (06:55→16:46)
[2017-03-04] MEDS: Budesonide/Formoterol 160/4.5 MDI IH SCH ×2 (07:48→19:53)
[2017-03-04] MEDS: Insulin LISPRO 300 UNITS/3 ML VIAL SQ SCH ×4 (08:05→20:35)
[2017-03-04] MEDS: Calcium Acetate 667 MG CAPSULE PO SCH ×3 (09:02→17:08)
[2017-03-04] MEDS: Multivit/Ca/Min/Fe/FA 1 TAB TABLET PO SCH (09:09)
[2017-03-04] MEDS: Aspirin Enteric Coated 81 MG Tablet PO SCH (09:09)
[2017-03-04] MEDS: Insulin DETEMIR 100 UNIT/ML X5UNITS SQ SCH ×2 (09:10→20:34)
[2017-03-04 09:31] LABS: Magnesium 1.7 mg/dL (1.6-2.6)
--- NOTE | 2017-03-04 09:45 | Nephrology Progress Note ---
Date of Encounter: 03/04/17 Time of Encounter: 09:43 - Assessment and Plan (1) Gram-positive cocci bacteremia Current Visit: Yes Status: Acute Patient admitted found to have gram-positive cocci in blood cultures from 2016. Wound culture preliminary no pathogens isolated. - Repeat blood cultures 03/03/2017 growing gram-positive cocci in one of the species concerning for MRSA. Plan: - Discontinue Zyvox - Patient agreeable to starting vancomycin IV, renally dosed per pharmacy. (2) ESRD (end stage renal disease) on dialysis Current Visit: No Status: Acute End-stage renal disease and undergoes hemodialysis Saturday. - Continue dialysis as scheduled and patient. (3) Diabetes Current Visit: No Status: Chronic Patient is a known type II diabetic with end-stage renal disease. Current glucoses are elevated. Recommend tight glucose control with diabetic diet and the cutaneous insulin for a glucose below 140. - Continue management per primary team. 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 Subjective Principal diagnosis: ESRD Interval history: Ms. Rosario 56-year-old female seen and evaluated patient bedside this morning. She states that she is feeling well and denies any fevers chills, chest pain shortness of breath palpitations, abdominal pains nausea vomiting diarrhea constipation. She denies any pain around her dialysis port in her right upper chest and says that overall the pain is improved. After discussion regarding the results of her blood cultures she does not want vancomycin as she has had chest pain, left upper extremity pain with previous infusions. She is adamant that she uses a different antibiotic. Objective - Vital Signs Vital signs: Vital Signs Temp Pulse Resp BP Pulse Ox 03/04/17 09:28 98.1 F 03/04/17 07:48 16 97 03/04/17 07:00 97 F L 80 16 160/76 97 03/04/17 03:42 97.7 F 80 17 144/74 96 03/04/17 00:28 98.4 F 83 16 157/64 96 03/03/17 22:12 16 94 03/03/17 19:11 96 03/03/17 19:09 99.3 F 84 16 171/78 96 03/03/17 16:00 98.1 F 83 18 166/73 98 03/03/17 11:43 98 F 81 18 179/74 97 Intake and Output 03/03/17 03/04/17 03/04/17 23:59 07:59 15:59 Intake Total 700 / 700 Balance 700 / 700 Intake: IV Fluids 700 / 700 Maxipime 500 MG In Dextrose 5% 100 / 100 100 ML @ 200 mls/hr IVPB Q24H [facility] Rx#:[id number] Zyvox Premix 600mg/300mL 600 mg 600 / 600 In 300 ml @ 150 mls/hr IVPB Q12HR [facility] Rx#:[id number] Other: Weight 108 kg Blood Glucose* 180 205 Patient Weight 03/04/17 23:59 Weight 108 kg - General Appearance Exam: General: Patient alert, awake, oriented 3, interactive, in no acute distress HEENT: Normocephalic, atraumatic, pupils equal reactive to light, nasal cavity patent and open septum median position, oral mucosa moist, uvula midline, neck supple trachea midline no palpable lymphadenopathy, no thyromegaly. Chest: Symmetric bilateral correlating with respiratory effort, effort nonlabored. Cardiac: Regular rate and rhythm, positive S1 and S2. no bruits appreciated bilateral carotids, Radial pulses 2+ bilateral, posterior tibial and dorsal pedal pulses 2+ bilateral. Respiratory: Clear to auscultation all lung holt Abdomen: Soft, obese, nontender, positive bowel sounds, no palpable masses appreciated on examination Extremities: Bilateral lower extremities with trace edema, right foot has diabetic ulcer currently wrapped. patient moving all 4 extremities spontaneously. Neurologic: No focal deficits appreciated on examination. Face symmetric, muscle strength symmetric bilateral upper and lower extremities. - Lab 03/04/17 04:36 03/04/17 04:36 Most recent lab results Calcium 7.7 mg/dL (8.6-10.8) L 03/04/17 04:36 Phosphorus 3.4 mg/dL (2.3-4.7) 03/01/17 15:15 Magnesium 1.7 mg/dL (1.6-2.6) 03/04/17 04:36 Consult Discharge Plan - Plan Referrals: Suresh Mendoza MD [Primary Care Provider] -
[2017-03-04] MEDS ORDERED: *HR* Heparin 10,000 UNIT/10 ML VIAL IV PRN (09:54)
[2017-03-04] MEDS ORDERED: 0.9 % Sodium Chloride 250 ML IVC PRN (09:54)
[2017-03-04] MEDS ORDERED: 0.9 % Sodium Chloride 1,000 ML PRIME SCH (10:00)
[2017-03-04] MEDS ORDERED: Silver Sulfadiazine 50 GM TUBE TP SCH (12:45)
[2017-03-04] MEDS ORDERED: Vancomycin 1,500 MG in D5% in Water 250 ML IVPB ONE (13:03)
--- NOTE | 2017-03-04 13:07 | Podiatry Consult Note ---
Date of Encounter: 03/04/17 Time of Encounter: 11:35 Assessment and Plan (1) Ulcer of right ankle Current visit: Yes Status: Acute examined patient and discussed that the wounds look clean and do not have signs of infection. She has been regularly following Dr. Winn and has an upcoming appt. She was made aware of the appointment date and time on 03/12. c/w daily silvadene dressing changes as she has been doing and silvadene was ordered. keep f/u appt with Dr. Winn. Qualifiers: Non-pressure ulcer stage: with fat layer exposed Qualified Code(s): L97.312 - Non-pressure chronic ulcer of right ankle with fat layer exposed History of Present Illness Chief complaint: R diabetic foot ulcer HPI: Ms. Frederick is a 56 year old diabetic female with ESRD on dialysis with right foot ulcerations which she says have been present for years and they used to be much larger. She says she last saw Dr. Winn a couple weeks ago. She says she uses silvadene on the wounds at home or if they drain alot she uses alginate. Lately she says they are small and not draining much so she uses silvadene. She was admitted with general malaise and fever. She had a reported fever of 103 in dialysis. Says she has an appt. with Dr. Winn next week but cannot remember the date or time. Past Med Surg Social Fam HX - Past Medical History Medical history: arthritis, asthma, CHF, CVA, diabetes, dialysis, fibromyalgia, GERD, hyperlipidemia, hypertension, myocardial infarction, renal disease, other Psychiatric history: anxiety, depression - Past Surgical History Surgical History: , orthopedic, other - Social History Smoking Status: Former smoker Smokeless Tobacco Status: No Alcohol use: none Drug use: none - Family History Mother Adopted: No Family Member Ethnicity: Non- Living Status: Age at : 60 Hx Family Cardiac Disorders: No Hx Family Respiratory Disorders: No Hx Family Cancer: Yes (Lung Ca) Hx Family GI Disorders: No Hx Family Genitourinary Disorders: No Hx Family Endocrine Disorder: No Hx Family Musculoskeletal Disorders: No Hx Family Neuromuscular Disorders: No Hx Family Neurologic Disorders: No Hx Family HEENT Disorders: No Hx Family Autoimmune Disorders: No Hx Family Reproductive Disorders: No Hx Family Psychosocial Disorders: No Hx Family Medical Disorders: No Father Adopted: No Family Member Ethnicity: Non- Living Status: Age at : 60 Cause of : Lung Ca Hx Family Cardiac Disorders: No Hx Family Respiratory Disorders: Yes Hx Family Cancer: Yes (Lung Ca) Hx Family GI Disorders: No Hx Family Genitourinary Disorders: No Hx Family Endocrine Disorder: No Hx Family Musculoskeletal Disorders: No Hx Family Neuromuscular Disorders: No Hx Family Neurologic Disorders: No Hx Family HEENT Disorders: No Hx Family Autoimmune Disorders: No Hx Family Reproductive Disorders: No Hx Family Psychosocial Disorders: No Hx Family Medical Disorders: No Medications and Allergies Aspirin Enteric Coated [Aspirin EC] 81 mg PO DAILY 04/08/15 [History] Multivitamin [Multi-Day Vitamins] 1 tab PO DAILY 04/08/15 [History] Simvastatin [Zocor] 40 mg PO DAILY 04/08/15 [History] Omeprazole [PriLOSEC] 20 mg PO DAILY 12/06/15 [History] ALPRAZolam [Xanax 0.5 MG Tablet] 0.5 mg PO TID PRN 06/27/16 [History] Tizanidine HCl 2 mg PO TID PRN 06/27/16 [History] Budesonide/Formoterol 160/4.5 [Symbicort 160/4.5] 2 puff IH BIDR #1 inhaler [Rx] Ergocalciferol (VITAMIN D2) [Vitamin D2] 50,000 unit PO QWEEK 01/16/17 [History] Insulin DETEMIR [Levemir Flextouch] 10 unit SQ BID 01/16/17 [History] Iron Polysaccharide Complex [Ferrex 150] 150 mg PO DAILY 01/16/17 [History] Metoprolol [Lopressor] 112.5 mg PO BID 01/16/17 [History] [place]-3/Dha/Epa/Fish Oil [Fish Oil 1,000 mg Softgel] 4 cap PO DAILY 01/16/17 [ History] Losartan Potassium [Cozaar] 100 mg PO DAILY #30 01/21/17 [Rx] Calcium Acetate [Phos-LO] 667 mg PO TIDWM 02/25/17 [History] Furosemide [Lasix] 40 mg PO BID 02/25/17 [History] Insulin LISPRO [Humalog Kwikpen U-100] 5 unit SQ TID PRN 02/25/17 [History] NIFEdipine [Nifedipine ER] 60 mg PO DAILY 02/25/17 [History] 3 Allergy/AdvReac Type Severity Reaction Status Date / Time amitriptyline Allergy feels drunk Verified 02/24/17 22:56 amlodipine Allergy See Verified 02/24/17 22:56 Comments Amoxicillin [From Augmentin] Allergy Itching Verified 02/24/17 22:56 clavulanic acid Allergy Itching Verified 02/24/17 22:56 [From Augmentin] gabapentin [From Neurontin] Allergy make me Verified 02/24/17 22:56 sick at my stomach pregabalin [From Lyrica] Allergy Swelling Verified 02/24/17 22:56 of Lip/Tongue/Throat CAROLYN Inhibitors AdvReac Palpitation Verified 02/24/17 22:56 s fenofibrate [From Tricor] AdvReac Drowsy Verified 02/24/17 22:56 vancomycin AdvReac See Verified 02/24/17 22:56 Comments All Systems Reviewed: A 10-system review of systems was performed and is negative for pertinent findings except as documented above in the HPI. - Constitutional Constitutional: fever(s) - Cardiovascular Cardiovascular: as per HPI, no chest pain - Respiratory Respiratory: no dyspnea - Musculoskeletal Musculoskeletal: as per HPI Physical Exam - Constitutional Vitals: Temp Pulse Resp BP Pulse Ox 98 F 79 16 175/83 98 03/04/17 11:16 03/04/17 11:16 03/04/17 11:16 03/04/17 11:16 03/04/17 11:16 Exam: well developed and nourished female in no acute distress Vasc: CFT < 3 sec x 5 digits right foot. right foot warm to touch. Derm: right lateral ankle over the lateral malleolus there is a wound which is 100% granular approximately [id number]. no drainage, epithelialized wound edges, no odor, no fluctuance, does not probe to bone. plantarly right submet 5 there is a [id number] ulceration with mild hyperkeratosis. none wounds have ascending erythema and both have minimal drainage. left foot no open lesions. no erythema. Musc: no pain with palpation of ulceration sites. no pain with right ankle/foot ROM. Neuro: protective sensation significantly diminished. Results - Labs Result Diagrams: 03/04/17 04:36 03/04/17 04:36 Labs: Abnormal lab results RBC 2.84 M/mcL (3.82-4.97) L 03/04/17 04:36 Hgb 7.8 g/dL (11.5-15.4) L 03/04/17 04:36 Hct 25.1 % (35.3-44.9) L 03/04/17 04:36 MCH 27.5 pg (28.0-33.3) L 03/04/17 04:36 MCHC 31.1 g/dL (31.6-35.5) L 03/04/17 04:36 RDW 14.9 % (11.5-14.5) H 03/04/17 04:36 PT 14.0 Seconds (9.4-12.1) H 03/01/17 15:15 Sodium 135 mEq/L (136-145) L 03/04/17 04:36 BUN 44 mg/dL (7-20) H 03/04/17 04:36 Creatinine 6.16 mg/dL (0.57-1.11) H 03/04/17 04:36 Est GFR ( Amer) 8 (> 60) L 03/04/17 04:36 Est GFR (Non-Af Amer) 7 (> 60) L 03/04/17 04:36 Glucose 179 mg/dL (70-99) H 03/04/17 04:36 POC Glucose 205 (58-89) H 03/04/17 06:16 Calcium 7.7 mg/dL (8.6-10.8) L 03/04/17 04:36 Troponin I 0.05 ng/mL (0-0.03) H* 03/04/17 00:01 Albumin 1.7 g/dL (3.5-5.0) L 03/03/17 17:38 Globulin 4.5 g/dL (2.4-3.5) H 03/03/17 17:38 Albumin/Globulin Ratio 0.4 (1.1-2.2) L 03/03/17 17:38 Urine Clarity Cloudy (Clear) A 03/01/17 16:17 Ur Specific [place] 1.028 (1.010-1.025) H 03/01/17 16:17 Urine Protein >=1000 mg/dL (Neg-Trace) H 03/01/17 16:17 Urine Glucose (UA) 500 mg/dL (Normal) H 03/01/17 16:17 Urine Ketones Trace mg/dL (Negative) H 03/01/17 16:17 Urine Blood Trace (Negative) H 03/01/17 16:17 Urine Microscopic WBC 5-15 per hpf (0-3) H 03/01/17 16:17 Ur Squamous Epith Cells Many per lpf (None-Few) H 03/01/17 16:17 Staphylococcus sp PCR DETECTED (Not Detect) A 03/03/17 09:55 Staph aureus (PCR) DETECTED (Not Detect) A 03/03/17 09:55 mecA-Methicil Res Gene DETECTED (Not Detect) A 03/03/17 09:55 H & H 03/04/17 Range/Units 04:36 Hgb 7.8 L (11.5-15.4) g/dL Hct 25.1 L (35.3-44.9) % All other labs normal. Consult Discharge Plan - Plan Referrals: Suresh Mendoza MD [Primary Care Provider] -
[2017-03-04] MEDS: Silver Sulfadiazine 50 GM TUBE TP SCH (13:55)
[2017-03-04] MEDS ORDERED: Heparin 1,000 UNITS/500 mL NS 500 ML ONE (14:28)
[2017-03-04] MEDS: Furosemide 40 MG TABLET PO SCH ×2 (14:54→17:08)
[2017-03-04] MEDS: Iron Polysaccharide Complex 150 MG CAPSULE PO SCH (14:55)
[2017-03-04] MEDS: NIFEdipine XL (24 HR) 60 MG TAB.ER.24 PO SCH (14:56)
--- NOTE | 2017-03-04 16:00 | IR Procedure Note ---
Date of procedure: 03/04/17 Consent Obtained: Written consent Timeout: Correct patient and procedure verified, Correct site verified, Time out performed, Skin prep completed Local anesthetic: Lidocaine 1% Indications: Bacteremia Procedure Performed: Temp placement, tunneled cath pull Site/Technique: LIJV cath placement. Needed 32cm,given poor draws, and no 26temp available. Results/Findings: Working well. Tunneled on right pulled. Hemostasis with compression. Estimated blood loss (cc): 5 Complications: None; Tolerated procedure well Post Procedure Treatment Plan: Monitoring in pts room
[2017-03-04] MEDS: *HR* Labetalol 20 MG/4 ML SYRINGE IVP ONE ×2 (18:50→18:59)
--- NOTE | 2017-03-04 23:04 | Internal Med Progress Note ---
Date of Encounter: 03/04/17 Time of Encounter: 09:30 - Assessment and plan (1) Sepsis Current Visit: Yes Status: Acute Assessment and plan: This is thought to be due to Staph aureus based on positive cultures 3 days ago and cultures from yesterday. However, lab results on computer state that she is PCR POSITIVE for MRSA. After calling lab, it seems that this is possibly MSSA. She did clinically improve with Cefepime and Linezolid. Patient has refused Vancomycin several times in the past. She is willing to try vancomycin today. Until today's repeat cultures are verified, we will cover for MRSA. If she refuses Vancomycin again, we will switch to daptomycin instead of Zyvox. Qualifiers: Sepsis type: sepsis due to unspecified organism Qualified Code(s): A41.9 - Sepsis, unspecified organism (2) Anemia in chronic illness Current Visit: No Status: Acute (3) Diabetes Current Visit: No Status: Chronic Qualifiers: Diabetes mellitus type: type 2 Diabetes mellitus complication status: with neurologic complications Diabetes mellitus complication detail: with polyneuropathy Diabetes mellitus long term care social worker insulin use: with detention use Qualified Code(s): E11.42 - Type 2 diabetes mellitus with diabetic polyneuropathy; Z79.4 - long term care phlebotomist (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; Z79.4 - long term care phlebotomist ( 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; Z79.4 - long term care phlebotomist (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; Z79.4 - long term care phlebotomist (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 (4) ESRD (end stage renal disease) on dialysis Current Visit: No Status: Acute (5) Foot ulcer due to secondary DM Current Visit: No Status: Chronic (6) Morbid obesity Current Visit: No Status: Chronic (7) Tobacco abuse Current Visit: No Status: Chronic (8) Hypertension Current Visit: No Status: Chronic Qualifiers: Hypertension type: essential hypertension Qualified Code(s): I10 - Essential (primary) hypertension - Subjective Interval history: Yesterday evening she complained of chest pain that lasts for several seconds after sitting down. Serial cardiac enzymes were negative. She states that hydralazine has given her palpitations and has been refusing it this AM. She is planned for new tunnel cath insertion. - Constitutional Vitals: Temp Pulse Resp BP Pulse Ox 98.3 F 90 12 186/75 98 03/04/17 19:28 03/04/17 19:28 10/16/17 19:55 03/04/17 19:28 03/04/17 19:55 General appearance: Present: A&O X 3, answers questions appropriately Exam: - Eye Eye exam: Present: normal appearance, PERRL, EOMI - ENT ENT exam: normal exam, normal oropharynx, mucous membranes moist - Neck Neck exam: Present: normal inspection, full ROM, trachea midline - Chest Chest inspection: Present: symmetric chest wall rise, other (right chest port present new dressing. No purulent drainage currently.) - Respiratory Respiratory exam: Present: normal lung sounds bilaterally. Absent: respiratory distress, wheezes - Cardiovascular Cardiovascular exam: Present: normal rhythm, tachycardia, normal heart sounds - Abdominal Exam Abdominal exam: Present: soft, Non-Tender. + erythema and single ulcered lesion in fold of abdomen - Extremities Exam Extremities exam: Present: normal inspection, full ROM. Absent: tenderness, pedal edema - Neurological Exam Neurological exam: Present: alert, oriented X3 - Psychiatric Psychiatric exam: Present: normal affect, normal mood - Skin Skin exam: Present: warm, dry Internal Medicine: Result - Labs CBC & Chem 7: 03/04/17 04:36 03/04/17 04:36 Labs: Short CBC 03/04/17 Range/Units 04:36 WBC 6.4 (4.3-11.1) K/mcL Hgb 7.8 L (11.5-15.4) g/dL Hct 25.1 L (35.3-44.9) % Plt Count 155 (140-400) K/mcL Neutrophils # 4.2 (1.6-8.9) K/mcL BMP 03/04/17 04:36 Sodium 135 L Potassium 4.3 Chloride 103 Carbon Dioxide 21 BUN 44 H Creatinine 6.16 H Glucose 179 H Calcium 7.7 L Cardiac Enzymes 03/04/17 Range/Units 00:01 Troponin I 0.05 H* (0-0.03) ng/mL - ABG Interpretation ABG results: PT/INR, D-dimer PT 14.0 Seconds (9.4-12.1) H 03/01/17 15:15 - Impressions Impressions Echocardiogram 03/03/17 13:37 Impressions: LVEF 55%. Mild-moderate concentric left ventricular hypertrophy. Mild left ventricular diastolic dysfunction. Normal right ventricular size and function. Mild pulmonic regurgitation. No pulmonary hypertension. Trivial pericardial effusion without evidence of tamponade. Left Ventricular Wall Motion: Rest Echo Findings All wall segments showed normal motion. Findings: Study Quality * Technically adequate exam. ECG Findings * Normal sinus rhythm. Aorta * Normally sized aortic root. Left Ventricle * LVEF 55%. * Mild-moderate concentric left ventricular hypertrophy. * Mild left ventricular diastolic dysfunction. Aortic Valve * No aortic regurgitation. * Trileaflet aortic valve. * Normal aortic valve structure. * No aortic stenosis. Mitral Valve * Normal mitral valve structure. * No mitral stenosis. * Trace mitral regurgitation. Tricuspid Valve * Normal tricuspid valve structure. * Trace tricuspid regurgitation. * No pulmonary hypertension. Pulmonic Valve * Pulmonic valve is not well visualized. * No pulmonic stenosis. * Mild pulmonic regurgitation. Pulmonary Artery * Pulmonary artery not well visualized. Right Ventricle * Normal right ventricular structure and function. Left Atrium * Severely dilated left atrium. Right Atrium * Normal right atrial size. Pericardium * There is a trivial pericardial effusion present. * There is no echocardiographic evidence of tamponade. Interatrial Septum * No evidence of PFO by color Doppler. IVC * Normal IVC dimensions and inspiratory collapse. Guidance Needle Placement Ultrasound 03/04/17 00:00 IMPRESSION: Successful ultrasound and fluoroscopy guided non-tunneled catheter placement. D/ / Meek Aponte MD / Meek Aponte MD Interpreting Provider: Meek Aponte MD Insertion Non-Tunneled Catheter 03/04/17 00:00 IMPRESSION: Successful ultrasound and fluoroscopy guided non-tunneled catheter placement. D/ / Meek Aponte MD / Meek Aponte MD Interpreting Provider: Meek Aponte MD Insertion Tunneled Catheter 03/04/17 00:00 IMPRESSION: Successful tunneled catheter removal without difficulty. D/ / Meek Aponte MD / Meek Aponte MD Interpreting Provider: Meek Aponte MD Consult Discharge Plan - Plan Referrals: Suresh Mendoza MD [Primary Care Provider] -
[2017-03-05] MEDS: hydrALAZINE 25 MG TABLET PO SCH ×4 (00:30→23:40)
[2017-03-05 04:20] LABS: Basophils % 0.3 %; Eosinophils # 0.1 K/mcL (0.0-0.6); Eosinophils % 1.7 %; Hematocrit 22.8 % (35.3-44.9); Hemoglobin 7.2 g/dL (11.5-15.4); Immature Granulocytes % 0.8 % (0-4); Lymphocytes # 1.6 K/mcL (0.6-4.6); Lymphocytes % 25.2 %; Mean Corpuscular HGB Conc 31.6 g/dL (31.6-35.5); Mean Corpuscular Hemoglobin 27.7 pg (28.0-33.3); Mean Corpuscular Volume 87.7 fL (83.0-100.0); Mean Platelet Volume 10.3 fL (9.4-12.4); Monocytes # 0.6 K/mcL (0.0-1.3); Monocytes % 8.7 %; Platelet Count 171 K/mcL (140-400); Red Cell Distribution Width 14.9 % (11.5-14.5); Segmented Neutrophils % 63.3 %
[2017-03-05 04:31] LABS: Calcium 7.5 mg/dL (8.6-10.8); Potassium 4.5 mEq/L (3.5-4.5)
[2017-03-05] MEDS: *HR* Heparin 5,000 UNIT/ML VIAL SQ SCH ×2 (05:59→16:40)
[2017-03-05] MEDS ORDERED: Vancomycin 750 MG in D5% in Water 250 ML IVPB ONE (06:00)
[2017-03-05] MEDS: Budesonide/Formoterol 160/4.5 MDI IH SCH ×2 (08:14→20:00)
[2017-03-05] MEDS: Insulin DETEMIR 100 UNIT/ML X5UNITS SQ SCH ×2 (08:59→20:39)
[2017-03-05] MEDS: Insulin LISPRO 300 UNITS/3 ML VIAL SQ SCH ×4 (08:59→20:38)
[2017-03-05] MEDS: Aspirin Enteric Coated 81 MG Tablet PO SCH (09:00)
[2017-03-05] MEDS: NIFEdipine XL (24 HR) 60 MG TAB.ER.24 PO SCH (09:00)
[2017-03-05] MEDS: Multivit/Ca/Min/Fe/FA 1 TAB TABLET PO SCH (09:00)
[2017-03-05] MEDS: Iron Polysaccharide Complex 150 MG CAPSULE PO SCH (09:00)
[2017-03-05] MEDS: Silver Sulfadiazine 50 GM TUBE TP SCH (09:01)
[2017-03-05] MEDS: Furosemide 40 MG TABLET PO SCH ×2 (09:01→16:39)
[2017-03-05] MEDS: Calcium Acetate 667 MG CAPSULE PO SCH ×3 (09:01→16:40)
--- NOTE | 2017-03-05 09:07 | Nephrology Progress Note ---
Date of Encounter: 03/05/17 Time of Encounter: 09:06 - Assessment and Plan (1) Gram-positive cocci bacteremia Current Visit: Yes Status: Acute Patient admitted found to have gram-positive cocci in blood cultures from 2016. Wound culture preliminary no pathogens isolated. - Repeat blood cultures 03/03/2017 growing gram-positive cocci in one of the species concerning for MRSA. Plan: - Discontinue Zyvox - Patient agreeable to starting vancomycin IV, renally dosed per pharmacy. (2) ESRD (end stage renal disease) on dialysis Current Visit: No Status: Acute End-stage renal disease and undergoes hemodialysis Saturday. - Continue dialysis as scheduled and patient. (3) Diabetes Current Visit: No Status: Chronic Patient is a known type II diabetic with end-stage renal disease. Current glucoses are elevated. Recommend tight glucose control with diabetic diet and the cutaneous insulin for a glucose below 140. - Continue management per primary team. Qualifiers: Diabetes mellitus type: type 2 Diabetes mellitus complication status: with neurologic complications Diabetes mellitus complication detail: with polyneuropathy Diabetes mellitus patient appointment coordinator insulin use: with prison use Qualified Code(s): E11.42 - Type 2 diabetes mellitus with diabetic polyneuropathy; Z79.4 - warrant server (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; Z79.4 - longterm ( 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; Z79.4 - warrant server (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; Z79.4 - warrant server (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 (4) Anemia in chronic illness Current Visit: No Status: Acute Hemoglobin remains stable, continue monitoring. Subjective Principal diagnosis: ESRD Interval history: Ms. Rosario 56-year-old female seen and evaluated patient bedside this morning. She states that she is feeling well and denies any fevers chills, chest pain shortness of breath palpitations, abdominal pains nausea vomiting diarrhea constipation. She denies any pain around her dialysis port in her right upper chest and says that overall the pain is improved. After discussion regarding the results of her blood cultures she does not want vancomycin as she has had chest pain, left upper extremity pain with previous infusions. She is adamant that she uses a different antibiotic. Objective - Vital Signs Vital signs: Vital Signs Temp Pulse Resp BP Pulse Ox 03/05/17 08:16 18 96 03/05/17 06:56 98.0 F 80 18 179/74 97 10/17/17 02:51 98.3 F 82 18 170/71 97 03/04/17 23:00 98.1 F 85 18 191/70 96 03/04/17 19:55 12 98 03/04/17 19:28 98.3 F 90 18 186/75 99 03/04/17 19:08 190/78 03/04/17 18:49 211/98 03/04/17 18:20 98.4 F 18 223/106 03/04/17 18:15 208/96 03/04/17 18:00 213/98 03/04/17 17:45 214/112 03/04/17 17:30 205/98 03/04/17 17:15 98.3 F 18 208/98 03/04/17 14:29 198/78 03/04/17 11:16 98 F 79 16 175/83 98 03/04/17 09:28 98.1 F Intake and Output 03/04/17 03/05/17 03/05/17 23:59 07:59 15:59 Intake Total 600 / 600 720 / 720 Output Total 1800 / 1800 Balance -1200 / -1200 720 / 720 Intake: Oral 0 / 0 720 / 720 Intake, Rinseback and Flushes 600 / 600 Output: Urine 0 / 0 Total Dialysis (HD) Output 1800 / 1800 Other: Meal Breakfast Percent of Meal Consumed 100% # Voids 1 Weight 108.8 kg Blood Glucose* 185 164 Hemodialysis Net Fluid Removed 1200 (mL) Patient Weight 03/05/17 23:59 Weight 108.8 kg - Lab 03/05/17 04:05 03/05/17 04:05 Most recent lab results Calcium 7.5 mg/dL (8.6-10.8) L 03/05/17 04:05 Phosphorus 3.4 mg/dL (2.3-4.7) 03/01/17 15:15 Magnesium 1.7 mg/dL (1.6-2.6) 03/04/17 04:36 Consult Discharge Plan - Plan Referrals: Suresh Mendoza MD [Primary Care Provider] -
--- NOTE | 2017-03-05 10:50 | Internal Med Progress Note ---
<Yaquelin Hudson - Last Filed: 03/05/17 14:51> Date of Encounter: 03/05/17 Time of Encounter: 10:30 - Assessment and plan (1) Sepsis Current Visit: Yes Status: Acute Assessment and plan: Patient was admitted for sepsis. Patient is afebrile, WBC WNL Origin of infection may be a nonhealing right foot ulcer, abdominal ulcer in panus. Perma cath was removed Echo TTE showed LVEF 55%, mild diastolic dysfunction, trivial pericardial effusion. Chest x-ray normal Blood cultures 03/03/2017 grew Staph aureus 2/2. However, lab results on computer state that she is PCR POSITIVE for MRSA. After calling lab, it seems that this is possibly MSSA. She did clinically improve with Cefepime and Linezolid. Abdomen ulcer ulcer in panus- grew staph aureus Wound culture- right ankle no pathogens present -Temporary hemodialysis catheter was placed by IR yesterday and is not functional. It will have to be removed and another temporary hemodialysis catheter will need to be placed for dialysis treatment. -Continue vancomycin day 2. We will cover for MRSA until new culture results. If she refuses vancomycin we will switch to daptomycin instead of (Zyvox-she received 3days tx). -Blood cultures 03/04/2017 pending -nephrology following Qualifiers: Sepsis type: sepsis due to unspecified organism Qualified Code(s): A41.9 - Sepsis, unspecified organism (2) Anemia in chronic illness Current Visit: No Status: Acute Assessment and plan: Patient has anemia of chronic disease hemoglobin decreased slightly from yesterday and is 7.2 -continue to monitor H&H (3) ESRD (end stage renal disease) on dialysis Current Visit: No Status: Acute Assessment and plan: Patient has end-stage renal disease- dialysis on Saturday, Saturday, Saturday -Nephrology following, recommendations appreciated -nephrology will discuss with patient the need for a new temporary hemodialysis catheter due to the one place yesterday is nonfunctional -Perma cath placement after blood cultures negative (4) Diabetes Current Visit: No Status: Chronic Assessment and plan: History of diabetes -Continue Levemir and sliding scale Qualifiers: Diabetes mellitus type: type 2 Diabetes mellitus complication status: with neurologic complications Diabetes mellitus complication detail: with polyneuropathy Diabetes mellitus longitudinal float operator insulin use: with longitudinal float operator use Qualified Code(s): E11.42 - Type 2 diabetes mellitus with diabetic polyneuropathy; Z79.4 - correction (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; Z79.4 - correction ( 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; Z79.4 - correction (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; Z79.4 - correction (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 (5) Foot ulcer due to secondary DM Current Visit: No Status: Chronic Assessment and plan: Wound care is following and treating podiatry has seen the patient and she is to follow up with Dr. Winn on 2016 (6) Morbid obesity Current Visit: No Status: Chronic (7) Hypertension Current Visit: No Status: Chronic Assessment and plan: SBP running in 170s and goes to 150s -Continue home medications of nifedipine, losartan -will increase dose of Lopressor, she is currently not on home dose -hydralazine 25 mg PO Qualifiers: Hypertension type: essential hypertension Qualified Code(s): I10 - Essential (primary) hypertension (8) Tobacco abuse Current Visit: No Status: Chronic - Subjective Interval history: Patient sleeping up in bed watching television she states that her shortness of breath has resolved. denies fever, chills, chest pain her nurse informed me that the patient is not happy that she might have to have any other temporary dialysis catheter - Constitutional Vitals: Temp Pulse Resp BP Pulse Ox 98.0 F 80 18 179/74 96 03/05/17 06:56 03/05/17 06:56 03/05/17 08:16 03/05/17 06:56 03/05/17 09:21 General appearance: Present: A&O X 3, answers questions appropriately Exam: Gen.: Vitals noted. No acute distress. AAOx3 HEENT: oropharynx clear, Normocephalic, atraumatic Cardiac: RRR, no murmur, +S1/S2 Pulmonary: CTA bilaterally, no wheezes, rales or rhonchi, equal chest expansion Abdomen: soft, nontender, Bowel sounds noted, no guarding Extremities: no BLE edema, nontender calf, no cyanosis or clubbing Neuro: A&Ox3, moves all extremities Psych: Appropriate mood and behavior Internal Medicine: Result - Labs CBC & Chem 7: 03/05/17 04:05 03/05/17 04:05 Labs: Short CBC 03/05/17 Range/Units 04:05 WBC 6.3 (4.3-11.1) K/mcL Hgb 7.2 L (11.5-15.4) g/dL Hct 22.8 L (35.3-44.9) % Plt Count 171 (140-400) K/mcL Neutrophils # 4.0 (1.6-8.9) K/mcL BMP 03/04/17 03/05/17 04:36 04:05 Sodium 135 L 135 L Potassium 4.3 4.5 Chloride 103 105 Carbon Dioxide 21 23 BUN 44 H 42 H Creatinine 6.16 H 5.86 H Glucose 179 H 158 H Calcium 7.7 L 7.5 L - ABG Interpretation ABG results: PT/INR, D-dimer PT 14.0 Seconds (9.4-12.1) H 03/01/17 15:15 - Impressions Impressions Echocardiogram 03/03/17 13:37 Impressions: LVEF 55%. Mild-moderate concentric left ventricular hypertrophy. Mild left ventricular diastolic dysfunction. Normal right ventricular size and function. Mild pulmonic regurgitation. No pulmonary hypertension. Trivial pericardial effusion without evidence of tamponade. Left Ventricular Wall Motion: Rest Echo Findings All wall segments showed normal motion. Findings: Study Quality * Technically adequate exam. ECG Findings * Normal sinus rhythm. Aorta * Normally sized aortic root. Left Ventricle * LVEF 55%. * Mild-moderate concentric left ventricular hypertrophy. * Mild left ventricular diastolic dysfunction. Aortic Valve * No aortic regurgitation. * Trileaflet aortic valve. * Normal aortic valve structure. * No aortic stenosis. Mitral Valve * Normal mitral valve structure. * No mitral stenosis. * Trace mitral regurgitation. Tricuspid Valve * Normal tricuspid valve structure. * Trace tricuspid regurgitation. * No pulmonary hypertension. Pulmonic Valve * Pulmonic valve is not well visualized. * No pulmonic stenosis. * Mild pulmonic regurgitation. Pulmonary Artery * Pulmonary artery not well visualized. Right Ventricle * Normal right ventricular structure and function. Left Atrium * Severely dilated left atrium. Right Atrium * Normal right atrial size. Pericardium * There is a trivial pericardial effusion present. * There is no echocardiographic evidence of tamponade. Interatrial Septum * No evidence of PFO by color Doppler. IVC * Normal IVC dimensions and inspiratory collapse. Guidance Needle Placement Ultrasound 03/04/17 00:00 IMPRESSION: Successful ultrasound and fluoroscopy guided non-tunneled catheter placement. D/ / Meek Aponte MD / Meek Aponte MD Interpreting Provider: Meek Aponte MD Insertion Non-Tunneled Catheter 03/04/17 00:00 IMPRESSION: Successful ultrasound and fluoroscopy guided non-tunneled catheter placement. D/ / Meek Aponte MD / Meek Aponte MD Interpreting Provider: Meek Aponte MD Insertion Tunneled Catheter 03/04/17 00:00 IMPRESSION: Successful tunneled catheter removal without difficulty. D/ / Meek Aponte MD / Meek Aponte MD Interpreting Provider: Meek Aponte MD Consult Discharge Plan - Plan Referrals: Suresh Mendoza MD [Primary Care Provider] - (web request sent on 03/05/17) <Elder Mai H - Last Filed: 03/05/17 16:43> Date of Encounter: 03/05/17 - Constitutional Vitals: Temp Pulse Resp BP Pulse Ox 98.2 F 82 22 176/76 97 03/05/17 11:02 03/05/17 11:02 03/05/17 11:02 03/05/17 11:02 03/05/17 11:02 Internal Medicine: Result - Labs CBC & Chem 7: 03/05/17 04:05 03/05/17 04:05 Labs: Short CBC 03/05/17 Range/Units 04:05 WBC 6.3 (4.3-11.1) K/mcL Hgb 7.2 L (11.5-15.4) g/dL Hct 22.8 L (35.3-44.9) % Plt Count 171 (140-400) K/mcL Neutrophils # 4.0 (1.6-8.9) K/mcL BMP 03/05/17 04:05 Sodium 135 L Potassium 4.5 Chloride 105 Carbon Dioxide 23 BUN 42 H Creatinine 5.86 H Glucose 158 H Calcium 7.5 L - ABG Interpretation ABG results: PT/INR, D-dimer PT 14.0 Seconds (9.4-12.1) H 03/01/17 15:15 - Attending Attestation Sepsis secondary to MRSA bacteremia Continue vancomycin IV Dialysis tomorrow I examined this patient and my medical decision-making was reviewed with the Resident Physician. I agree with the documented findings, disposition and treatment plan as described except to the extent set forth below.
[2017-03-05] MEDS ORDERED: Heparin 1,000 UNITS/500 mL NS 500 ML ONE (15:19)
--- NOTE | 2017-03-05 15:46 | IR Procedure Note ---
Date of procedure: 03/05/17 Consent Obtained: Written consent Timeout: Correct patient and procedure verified, Correct site verified, Time out performed, Skin prep completed Local anesthetic: Lidocaine 1% Indications: Malfunction temp dialysis catheter Procedure Performed: Exchange temp catheter Results/Findings: New LIJ 12F 24cm temp dialysis catheter placement Complications: None; Tolerated procedure well (Monitor on floor)
[2017-03-05] MEDS ORDERED: *HR* Heparin 5,000 UNIT/ML VIAL ONE (15:49)
[2017-03-06] MEDS: *HR* Heparin 5,000 UNIT/ML VIAL SQ SCH ×2 (05:04→20:43)
[2017-03-06 05:57] LABS: Basophils % 0.4 %; Eosinophils # 0.1 K/mcL (0.0-0.6); Eosinophils % 1.8 %; Hemoglobin 7.1 g/dL (11.5-15.4); Immature Granulocytes % 0.7 % (0-4); Lymphocytes # 1.9 K/mcL (0.6-4.6); Lymphocytes % 27.4 %; Mean Corpuscular HGB Conc 30.9 g/dL (31.6-35.5); Mean Corpuscular Hemoglobin 27.5 pg (28.0-33.3); Mean Corpuscular Volume 89.1 fL (83.0-100.0); Mean Platelet Volume 10.3 fL (9.4-12.4); Monocytes # 0.4 K/mcL (0.0-1.3); Neutrophils # 4.3 K/mcL (1.6-8.9); Platelet Count 181 K/mcL (140-400); Red Blood Count 2.58 M/mcL (3.82-4.97); Red Cell Distribution Width 15.3 % (11.5-14.5); Segmented Neutrophils % 63.7 %
[2017-03-06 06:04] LABS: Calcium 7.8 mg/dL (8.6-10.8); Potassium 4.6 mEq/L (3.5-4.5)
[2017-03-06] MEDS ORDERED: *HR* Heparin 10,000 UNIT/10 ML VIAL IV PRN (07:38)
[2017-03-06] MEDS ORDERED: 0.9 % Sodium Chloride 250 ML IVC PRN (07:38)
[2017-03-06] MEDS ORDERED: 0.9 % Sodium Chloride 1,000 ML PRIME SCH (07:45)
[2017-03-06] MEDS: Insulin DETEMIR 100 UNIT/ML X5UNITS SQ SCH ×2 (07:45→20:43)
[2017-03-06] MEDS: Furosemide 40 MG TABLET PO SCH ×2 (07:46→20:43)
[2017-03-06] MEDS: Insulin LISPRO 300 UNITS/3 ML VIAL SQ SCH ×4 (07:46→20:52)
[2017-03-06] MEDS: Iron Polysaccharide Complex 150 MG CAPSULE PO SCH (07:47)
[2017-03-06] MEDS: Aspirin Enteric Coated 81 MG Tablet PO SCH (07:47)
[2017-03-06] MEDS: Calcium Acetate 667 MG CAPSULE PO SCH ×4 (07:47→21:31)
[2017-03-06] MEDS: Multivit/Ca/Min/Fe/FA 1 TAB TABLET PO SCH (07:47)
[2017-03-06] MEDS: Budesonide/Formoterol 160/4.5 MDI IH SCH ×2 (07:59→20:34)
--- NOTE | 2017-03-06 08:38 | Nephrology Progress Note ---
Date of Encounter: 03/06/17 Time of Encounter: 08:31 - Assessment and Plan (1) Gram-positive cocci bacteremia Current Visit: Yes Status: Acute Patient admitted found to have gram-positive cocci in blood cultures from 2016. Wound culture preliminary no pathogens isolated. - Repeat blood cultures 03/03/2017 growing gram-positive cocci in one of the species concerning for MRSA. 03/06: Blood cultures growing MSSA, PCR demonstrated Mec-A, after discussion with microbiology they state that the positive Mec-A is likely a false positive and that everything is growing staph aureus. Wound culture from her foot ulcer demonstrates staph aureus correlating with her bacteremia. Plan: - Repeat cultures and if negative, plan for HD port replacement - Antibiotics per primary team. (2) ESRD (end stage renal disease) on dialysis Current Visit: No Status: Acute End-stage renal disease and undergoes hemodialysis Saturday. - Second IJ catheter continues to have difficulty with holding and pushing of fluids. - IR to reevaluate catheter placement. (3) Diabetes Current Visit: No Status: Chronic Patient is a known type II diabetic with end-stage renal disease. Current glucoses are elevated. Recommend tight glucose control with diabetic diet and the cutaneous insulin for a glucose below 140. - Continue management per primary team. Qualifiers: Diabetes mellitus type: type 2 Diabetes mellitus complication status: with neurologic complications Diabetes mellitus complication detail: with polyneuropathy Diabetes mellitus jail insulin use: with termite control service representative use Qualified Code(s): E11.42 - Type 2 diabetes mellitus with diabetic polyneuropathy; Z79.4 - long term care social worker (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; Z79.4 - [facility] ( 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; Z79.4 - [facility] (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; Z79.4 - [facility] (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 (4) Anemia in chronic illness Current Visit: No Status: Acute Hemoglobin remains stable, continue monitoring. Replace if hemoglobin drops below 7.0 with PRBCs. Subjective Principal diagnosis: ESRD Interval history: Ms. Rosario 56-year-old female seen and evaluated in dialysis this morning. She is very upset as the second IJ catheter is not able to pull back and flushes with resistance. She states that she is very upset that she may need another line. She denies any changes medically overnight. She states that this IJ catheter is slightly better than the one she had an yesterday as she does not feel like she has a stick in her throat. Objective - Vital Signs Vital signs: Vital Signs Temp Pulse Resp BP Pulse Ox 03/06/17 08:06 96 03/06/17 06:58 98.5 F 78 16 158/70 96 03/06/17 04:37 98.4 F 76 17 151/73 95 03/05/17 23:33 98.6 F 82 17 145/63 94 03/05/17 20:19 98.6 F 84 18 175/79 99 03/05/17 20:00 16 99 03/05/17 16:50 98.6 F 82 18 164/76 99 03/05/17 11:02 98.2 F 82 22 176/76 97 03/05/17 09:21 96 Intake and Output 03/05/17 03/06/17 03/06/17 23:59 07:59 15:59 Intake Total 240 / 240 Output Total 0 / 0 Balance 240 / 240 Intake: Oral 240 / 240 Output: Urine 0 / 0 Other: Meal Dinner Percent of Meal Consumed 100% # Voids 1 Weight 109.4 kg Blood Glucose* 174 190 Patient Weight 03/06/17 23:59 Weight 109.4 kg - General Appearance Exam: General: Patient alert, awake, oriented 3, interactive, in no acute distress HEENT: Normocephalic, atraumatic, pupils equal reactive to light, nasal cavity patent and open septum median position, oral mucosa moist, neck supple trachea midline no palpable lymphadenopathy, no thyromegaly. IJ catheter and left neck Chest: Symmetric bilateral correlating with respiratory effort, effort nonlabored. Cardiac: Regular rate and rhythm, positive S1 and S2. no bruits appreciated bilateral carotids, Radial pulses 2+ bilateral, posterior tibial and dorsal pedal pulses 2+ bilateral. Respiratory: Clear to auscultation all lung holt Abdomen: Soft, nontender, positive bowel sounds, no palpable masses appreciated on examination Extremities: Symmetric bilateral, right foot has diabetic ulcer currently wrapped. Neurologic: No focal deficits appreciated on examination. Face symmetric, muscle strength symmetric bilateral upper and lower extremities. - Lab 03/06/17 05:10 03/06/17 05:10 Most recent lab results Calcium 7.8 mg/dL (8.6-10.8) L 03/06/17 05:10 Phosphorus 3.4 mg/dL (2.3-4.7) 03/01/17 15:15 Magnesium 1.7 mg/dL (1.6-2.6) 03/04/17 04:36 Consult Discharge Plan - Plan Referrals: Suresh Mendoza MD [Primary Care Provider] - (web request sent on 03/05/17)
--- NOTE | 2017-03-06 10:53 | Internal Med Progress Note ---
Addendum entered and electronically signed by Yaquelin Hudson DO 03/06/17 11:29: Anemia is most likely dilutional Original Note: <Yaquelin Hudson - Last Filed: 03/06/17 11:25> Date of Encounter: 03/06/17 Time of Encounter: 10:44 - Assessment and plan (1) Sepsis Current Visit: Yes Status: Acute Assessment and plan: Sepsis secondary to MSSA Patient is afebrile, WBC WNL Origin of infection is most likely abdominal ulcer in panus. Perma cath was removed Echo TTE showed LVEF 55%, mild diastolic dysfunction, trivial pericardial effusion. Chest x-ray normal Blood cultures 03/03/2017 grew Staph aureus 2/2. However, lab results on computer state that she is PCR POSITIVE for MRSA. After calling lab, it seems that this is possibly MSSA. She did clinically improve with Cefepime and Linezolid. Abdomen ulcer ulcer in panus- grew staph aureus Wound culture- right ankle no pathogens present -Blood cultures 03/04/2017 grew gram-positive cocci -A 2nd IJ catheter was replaced by IR yesterday and continues to have difficulty with holding and pushing fluids -IR will reevaluate catheter placement -Continue vancomycin day 3 -will repeat blood cultures Qualifiers: Sepsis type: sepsis due to unspecified organism Qualified Code(s): A41.9 - Sepsis, unspecified organism (2) Anemia in chronic illness Current Visit: No Status: Acute Assessment and plan: Patient has anemia of chronic disease hemoglobin decreased slightly from yesterday and is 7.1 -continue to monitor H&H -patient will get one unit of PRBC with hemodialysis (3) ESRD (end stage renal disease) on dialysis Current Visit: No Status: Acute Assessment and plan: Patient has end-stage renal disease- dialysis on Saturday, Saturday, Saturday A 2nd IJ catheter was replaced by IR yesterday and continues to have difficulty with holding and pushing fluids -IR will reevaluate catheter placement -Nephrology following, recommendations appreciated -dialysis possibly today (4) Diabetes Current Visit: No Status: Chronic Assessment and plan: History of diabetes -Continue Levemir and sliding scale Qualifiers: Diabetes mellitus type: type 2 Diabetes mellitus complication status: with neurologic complications Diabetes mellitus complication detail: with polyneuropathy Diabetes mellitus long-term insulin use: with long-term use Qualified Code(s): E11.42 - Type 2 diabetes mellitus with diabetic polyneuropathy; Z79.4 - intermediate manager (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; Z79.4 - [facility] ( 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; Z79.4 - intermediate manager (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; Z79.4 - intermediate manager (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 (5) Foot ulcer due to secondary DM Current Visit: No Status: Chronic Assessment and plan: Wound care is following and treating podiatry has seen the patient and she is to follow up with Dr. Winn on 2016 (6) Morbid obesity Current Visit: No Status: Chronic (7) Hypertension Current Visit: No Status: Chronic Assessment and plan: SBP running in 170s and goes to 150s -Continue home medications of nifedipine, losartan -will increase dose of Lopressor, she is currently not on home dose -hydralazine 25 mg PO Qualifiers: Hypertension type: essential hypertension Qualified Code(s): I10 - Essential (primary) hypertension (8) Tobacco abuse Current Visit: No Status: Chronic - Subjective Interval history: Patient sleeping up in bed watching television she states that her shortness of breath has resolved. denies fever, chills, chest pain, blood in stool, abdominal pain - Constitutional Vitals: Temp Pulse Resp BP Pulse Ox 98.5 F 78 16 158/70 96 03/06/17 06:58 03/06/17 06:58 03/06/17 06:58 03/06/17 06:58 03/06/17 08:06 General appearance: Present: A&O X 3, answers questions appropriately Exam: Gen.: Vitals noted. No acute distress. AAOx3 HEENT: oropharynx clear, Normocephalic, atraumatic Cardiac: RRR, no murmur, +S1/S2 Pulmonary: CTA bilaterally, no wheezes, rales or rhonchi, equal chest expansion Abdomen: soft, nontender, Bowel sounds noted, no guarding Neuro: A&Ox3, moves all extremities Psych: Appropriate mood and behavior Internal Medicine: Result - Labs CBC & Chem 7: 03/06/17 05:10 03/06/17 05:10 Labs: Short CBC 03/06/17 Range/Units 05:10 WBC 6.8 (4.3-11.1) K/mcL Hgb 7.1 L (11.5-15.4) g/dL Hct 23.0 L (35.3-44.9) % Plt Count 181 (140-400) K/mcL Neutrophils # 4.3 (1.6-8.9) K/mcL BMP 03/06/17 05:10 Sodium 138 Potassium 4.6 H Chloride 108 Carbon Dioxide 22 BUN 47 H Creatinine 6.17 H Glucose 191 H Calcium 7.8 L - ABG Interpretation ABG results: PT/INR, D-dimer PT 14.0 Seconds (9.4-12.1) H 03/01/17 15:15 - Impressions Impressions Insertion Non-Tunneled Catheter 03/05/17 00:00 IMPRESSION: 1. Successful fluoroscopic guided exchange of a temporary dialysis catheter as discussed above. D/ / Orion Serna MD / Orion Serna MD Interpreting Provider: Orion Serna MD Vena Cavagram, [place] 03/05/17 00:00 IMPRESSION: 1. Successful fluoroscopic guided exchange of a temporary dialysis catheter as discussed above. D/ / Orion Serna MD / Orion Serna MD Interpreting Provider: Orion Serna MD Consult Discharge Plan - Plan Referrals: Suresh Mendoza MD [Primary Care Provider] - (web request sent on 03/05/17) <Elder Mai H - Last Filed: 03/06/17 16:15> Date of Encounter: 03/06/17 - Constitutional Vitals: Temp Pulse Resp BP Pulse Ox 98.1 F 80 16 190/83 97 03/06/17 11:58 03/06/17 11:58 03/06/17 11:58 03/06/17 11:58 03/06/17 11:58 Internal Medicine: Result - Labs CBC & Chem 7: 03/06/17 05:10 03/06/17 05:10 Labs: Short CBC 03/06/17 Range/Units 05:10 WBC 6.8 (4.3-11.1) K/mcL Hgb 7.1 L (11.5-15.4) g/dL Hct 23.0 L (35.3-44.9) % Plt Count 181 (140-400) K/mcL Neutrophils # 4.3 (1.6-8.9) K/mcL BMP 03/06/17 05:10 Sodium 138 Potassium 4.6 H Chloride 108 Carbon Dioxide 22 BUN 47 H Creatinine 6.17 H Glucose 191 H Calcium 7.8 L - ABG Interpretation ABG results: PT/INR, D-dimer PT 14.0 Seconds (9.4-12.1) H 03/01/17 15:15 - Impressions Impressions Insertion Non-Tunneled Catheter 03/05/17 00:00 IMPRESSION: 1. Successful fluoroscopic guided exchange of a temporary dialysis catheter as discussed above. D/ / Orion Serna MD / Orion Serna MD Interpreting Provider: Orion Serna MD Vena Cavagram, [place] 03/05/17 00:00 IMPRESSION: 1. Successful fluoroscopic guided exchange of a temporary dialysis catheter as discussed above. D/ / Orion Serna MD / Orion Serna MD Interpreting Provider: Orion Serna MD Insertion Non-Tunneled Catheter 03/06/17 00:00 IMPRESSION: Successful fluoroscopic guided exchange of a temporary dialysis catheter D/ / Chapin Castillo MD / Chapin Castillo MD Interpreting Provider: Chapin Castillo MD - Attending Attestation Sepsis secondary to MSSA bacteremia Continue vancomycin IV (allergic to PNC) may switch to othe antibiotic when blood cultures remain negative Dialysis when possible I examined this patient and my medical decision-making was reviewed with the Resident Physician. I agree with the documented findings, disposition and treatment plan as described except to the extent set forth below.
[2017-03-06] MEDS: hydrALAZINE 25 MG TABLET PO SCH ×2 (12:09→20:43)
[2017-03-06] MEDS: NIFEdipine XL (24 HR) 60 MG TAB.ER.24 PO SCH (12:09)
[2017-03-06] MEDS: Silver Sulfadiazine 50 GM TUBE TP SCH (12:10)
[2017-03-06] MEDS ORDERED: 0.9 % Sodium Chloride 1,000 ML ONE (13:03)
[2017-03-06] MEDS ORDERED: Heparin 1,000 UNITS/500 mL NS 500 ML ONE (13:43)
[2017-03-06] MEDS ORDERED: *HR* Heparin 5,000 UNIT/ML VIAL ONE (14:17)
[2017-03-06] MEDS: *HR* OxyCODONE Immed Rel 5 MG TABLET PO PRN (20:43)
[2017-03-06] MEDS ORDERED: Vancomycin 1,000 MG in D5% in Water 250 ML IVPB ONE (21:05)
[2017-03-07] MEDS: hydrALAZINE 25 MG TABLET PO SCH ×3 (00:21→16:51)
[2017-03-07] MEDS: *HR* OxyCODONE Immed Rel 5 MG TABLET PO PRN (03:36)
[2017-03-07 04:07] LABS: Enterococcus by PCR Not Detected (Not Detect); Staphylococcus aureus by PCR ***DETECTED*** (Not Detect); mecA Methicillin-Resist Gene Not Detected (Not Detect)
[2017-03-07 04:08] LABS: Acinetobacter baumannii by PCR Not Detected (Not Detect); Candida albicans by PCR Not Detected (Not Detect); Candida glabrata by PCR Not Detected (Not Detect); Candida krusei by PCR Not Detected (Not Detect); Candida parapsilosis by PCR Not Detected (Not Detect); Candida tropicalis by PCR Not Detected (Not Detect); Escherichia coli by PCR Not Detected (Not Detect); Klebsiella oxytoca by PCR Not Detected (Not Detect); Klebsiella pneumoniae by PCR Not Detected (Not Detect); Pseudomonas aeruginosa by PCR Not Detected (Not Detect); Serratia marcescens by PCR Not Detected (Not Detect); Streptococcus agalactiae(B)PCR Not Detected (Not Detect); Streptococcus by PCR Not Detected (Not Detect); Streptococcus pneumoniae PCR Not Detected (Not Detect); Streptococcus pyogenes (A) PCR Not Detected (Not Detect)
[2017-03-07] MEDS: *HR* Heparin 5,000 UNIT/ML VIAL SQ SCH ×2 (05:00→16:50)
[2017-03-07 05:15] LABS: Basophils % 0.5 %; Eosinophils # 0.1 K/mcL (0.0-0.6); Eosinophils % 1.5 %; Hematocrit 22.8 % (35.3-44.9); Hemoglobin 7.2 g/dL (11.5-15.4); Immature Platelets 1.7 % (1.1-6.1); Lymphocytes # 2.1 K/mcL (0.6-4.6); Lymphocytes % 23.7 %; Mean Corpuscular HGB Conc 31.6 g/dL (31.6-35.5); Mean Corpuscular Hemoglobin 27.8 pg (28.0-33.3); Mean Platelet Volume 9.7 fL (9.4-12.4); Monocytes # 0.5 K/mcL (0.0-1.3); Monocytes % 5.4 %; Neutrophils # 5.9 K/mcL (1.6-8.9); Platelet Count 226 K/mcL (140-400); Red Blood Count 2.59 M/mcL (3.82-4.97); Red Cell Distribution Width 15.1 % (11.5-14.5); Segmented Neutrophils % 67.9 %
[2017-03-07 05:26] LABS: Calcium 8.3 mg/dL (8.6-10.8); Potassium 4.2 mEq/L (3.5-4.5)
--- NOTE | 2017-03-07 08:17 | Nephrology Progress Note ---
Date of Encounter: 03/07/17 Time of Encounter: 08:17 - Assessment and Plan (1) Gram-positive cocci bacteremia Current Visit: Yes Status: Acute Patient admitted found to have gram-positive cocci in blood cultures from 2016. Wound culture preliminary no pathogens isolated. - Repeat blood cultures 03/03/2017 growing gram-positive cocci in one of the species concerning for MRSA. 03/06: Blood cultures growing MSSA, PCR demonstrated Mec-A, after discussion with microbiology they state that the positive Mec-A is likely a false positive and that everything is growing staph aureus. Wound culture from her foot ulcer demonstrates staph aureus correlating with her bacteremia. Plan: - Repeat cultures and if negative, plan for HD port replacement - Antibiotics per primary team. (2) ESRD (end stage renal disease) on dialysis Current Visit: No Status: Acute End-stage renal disease and undergoes hemodialysis Saturday. - HD yesterday with 3432 mL removal. - Patient has IJ catheter in place. (3) Diabetes Current Visit: No Status: Chronic Patient is a known type II diabetic with end-stage renal disease. Current glucoses are elevated. Recommend tight glucose control with diabetic diet and the sub-cutaneous insulin for a glucose below 140. - Continue management per primary team. Qualifiers: Diabetes mellitus type: type 2 Diabetes mellitus complication status: with neurologic complications Diabetes mellitus complication detail: with polyneuropathy Diabetes mellitus meterman insulin use: with meterman use Qualified Code(s): E11.42 - Type 2 diabetes mellitus with diabetic polyneuropathy; Z79.4 - long-term (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; Z79.4 - long-term ( 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; Z79.4 - long-term (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; Z79.4 - meterman (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 (4) Anemia in chronic illness Current Visit: No Status: Acute Hemoglobin remains stable, continue monitoring. Replace if hemoglobin drops below 7.0 with PRBCs. Subjective Principal diagnosis: ESRD Interval history: Ms. Rosario 56-year-old female seen and evaluated a patient bedside this morning. He is alert awake and interactive and very upset that she still has bacteria in her blood. She tolerated dialysis yesterday with no complication. She has not happy with the internal jugular line understands the necessity of it. She denies any fevers, chills, diaphoresis, chest pain shortness of breath abdominal pain nausea vomiting diarrhea constipation. Objective - Vital Signs Vital signs: Vital Signs Temp Pulse Resp BP Pulse Ox 03/07/17 07:05 98.4 F 70 18 147/67 95 03/07/17 03:58 98.1 F 75 17 148/70 95 03/06/17 23:19 98.2 F 79 17 153/77 97 03/06/17 20:47 98.7 F 81 18 161/81 97 03/06/17 20:35 16 98 03/06/17 19:55 97.6 F 15 176/80 03/06/17 19:45 153/73 03/06/17 19:35 147/64 03/06/17 19:20 162/69 03/06/17 19:05 149/69 03/06/17 18:50 159/73 03/06/17 18:35 161/69 03/06/17 18:20 155/74 03/06/17 18:05 160/74 03/06/17 17:50 158/77 03/06/17 17:35 162/77 03/06/17 17:20 170/79 03/06/17 17:05 179/82 03/06/17 16:50 182/83 03/06/17 16:35 98.3 F 15 170/75 03/06/17 11:58 98.1 F 80 16 190/83 97 Intake and Output 03/06/17 03/07/17 03/07/17 23:59 07:59 15:59 Intake Total 600 / 600 Output Total 3432 / 3432 Balance -2832 / -2832 Intake: Oral 0 / 0 Intake, Rinseback and Flushes 600 / 600 Output: Urine 0 / 0 Total Dialysis (HD) Output 3432 / 3432 Other: Weight 113.3 kg Blood Glucose* 159 175 Hemodialysis Net Fluid Removed 2832 (mL) Patient Weight 03/07/17 23:59 Weight 113.3 kg - General Appearance Exam: General: Patient alert, awake, oriented 3, interactive, in no acute distress HEENT: Normocephalic, atraumatic, pupils equal reactive to light, nasal cavity patent and open septum median position, oral mucosa moist, neck supple trachea midline no palpable lymphadenopathy, no thyromegaly. IJ catheter and left neck Chest: Symmetric bilateral correlating with respiratory effort, effort nonlabored. Cardiac: Regular rate and rhythm, positive S1 and S2. no bruits appreciated bilateral carotids, Radial pulses 2+ bilateral, posterior tibial and dorsal pedal pulses 2+ bilateral. Respiratory: Clear to auscultation all lung holt Abdomen: Soft, nontender, positive bowel sounds, no palpable masses appreciated on examination Extremities: Symmetric bilateral, right foot has diabetic ulcer currently wrapped. Neurologic: No focal deficits appreciated on examination. Face symmetric, muscle strength symmetric bilateral upper and lower extremities. - Lab 03/07/17 05:04 03/07/17 05:04 Most recent lab results Calcium 8.3 mg/dL (8.6-10.8) L 03/07/17 05:04 Phosphorus 3.4 mg/dL (2.3-4.7) 03/01/17 15:15 Magnesium 1.7 mg/dL (1.6-2.6) 03/04/17 04:36 Consult Discharge Plan - Plan Referrals: Suresh Mendoza MD [Primary Care Provider] - 03/12/17 2:00 pm (web request sent on 03/05/17)
[2017-03-07] MEDS ORDERED: Aminoglycoside Consult 1 EACH MC ONE (09:00)
[2017-03-07] MEDS: Multivit/Ca/Min/Fe/FA 1 TAB TABLET PO SCH (09:22)
[2017-03-07] MEDS: Insulin DETEMIR 100 UNIT/ML X5UNITS SQ SCH ×2 (09:23→21:27)
[2017-03-07] MEDS: Iron Polysaccharide Complex 150 MG CAPSULE PO SCH (09:23)
[2017-03-07] MEDS: NIFEdipine XL (24 HR) 60 MG TAB.ER.24 PO SCH (09:23)
[2017-03-07] MEDS: Insulin LISPRO 300 UNITS/3 ML VIAL SQ SCH ×4 (09:24→21:27)
[2017-03-07] MEDS: Furosemide 40 MG TABLET PO SCH ×2 (09:24→16:51)
[2017-03-07] MEDS: Calcium Acetate 667 MG CAPSULE PO SCH ×3 (09:25→16:51)
[2017-03-07] MEDS: Budesonide/Formoterol 160/4.5 MDI IH SCH ×2 (09:49→20:00)
--- NOTE | 2017-03-07 11:31 | Internal Med Progress Note ---
<Yaquelin Hudson - Last Filed: 03/07/17 13:02> Date of Encounter: 03/07/17 Time of Encounter: 11:28 - Assessment and plan (1) Sepsis Current Visit: Yes Status: Acute Assessment and plan: Sepsis secondary to MSSA Patient is afebrile, WBC WNL Origin of infection is most likely abdominal ulcer in panus. Perma cath was removed Echo TTE showed LVEF 55%, mild diastolic dysfunction, trivial pericardial effusion. Chest x-ray normal Blood cultures 03/03/2017 grew Staph aureus 2/2. However, lab results on computer state that she is PCR POSITIVE for MRSA. After calling lab, it seems that this is possibly MSSA. She did clinically improve with Cefepime and Linezolid. Abdomen ulcer ulcer in panus- grew staph aureus Wound culture- right ankle no pathogens present -Blood cultures 03/06/2017 grew gram-positive cocci in clusters -ID consulted -IJ catheter is in place and functional -Continue vancomycin day 4 -will repeat blood cultures Qualifiers: Sepsis type: methicillin susceptible Staphylococcus aureus Qualified Code(s ): A41.01 - Sepsis due to Methicillin susceptible Staphylococcus aureus (2) Anemia in chronic illness Current Visit: No Status: Acute Assessment and plan: Patient has anemia of chronic disease hemoglobin not improving and is 7.2 -1 unit PRBC ordered -continue to monitor H&H (3) ESRD (end stage renal disease) on dialysis Current Visit: No Status: Acute Assessment and plan: Patient has end-stage renal disease- dialysis on Saturday, Saturday, Saturday A 2nd IJ catheter was replaced by IR yesterday and continues to have difficulty with holding and pushing fluids -IJ catheter is in place and functional -Nephrology following, recommendations appreciated -dialysis yesterday -HD port replacement when blood cultures negative (4) Diabetes Current Visit: No Status: Chronic Assessment and plan: History of diabetes -Continue Levemir and sliding scale Qualifiers: Diabetes mellitus type: type 2 Diabetes mellitus complication status: with neurologic complications Diabetes mellitus complication detail: with polyneuropathy Diabetes mellitus extermination inspector insulin use: with fpc use Qualified Code(s): E11.42 - Type 2 diabetes mellitus with diabetic polyneuropathy; Z79.4 - termite control service representative (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; Z79.4 - skilled nursing ( 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; Z79.4 - skilled nursing (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; Z79.4 - termite control service representative (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 (5) Foot ulcer due to secondary DM Current Visit: No Status: Chronic Assessment and plan: Wound care is following patient is continuing to treat her ulcers on her right ankle and sole of foot podiatry has seen the patient and she is to follow up with Dr. Winn on 2016 (6) Morbid obesity Current Visit: No Status: Chronic (7) Hypertension Current Visit: No Status: Chronic Assessment and plan: SBP running in 140s to 160s -Continue home medications of nifedipine, losartan -will increase dose of Lopressor, she is currently not on home dose -hydralazine 25 mg PO Qualifiers: Hypertension type: essential hypertension Qualified Code(s): I10 - Essential (primary) hypertension (8) Tobacco abuse Current Visit: No Status: Chronic - Subjective Interval history: Patient is laying in bed watching television denies fever, chills, chest pain, shortness of breath, blood in stool, abdominal pain she is upset that there has been difficulties with her IJ catheter functioning - Constitutional Vitals: Temp Pulse Resp BP Pulse Ox 98.3 F 73 17 164/91 97 03/07/17 11:00 03/07/17 11:00 03/07/17 11:00 03/07/17 11:00 03/07/17 11:00 General appearance: Present: A&O X 3, answers questions appropriately Exam: Gen.: Vitals noted. No acute distress. AAOx3 HEENT: oropharynx clear, Normocephalic, atraumatic Cardiac: RRR, no murmur, +S1/S2 Pulmonary: CTA bilaterally, no wheezes, rales or rhonchi, equal chest expansion Abdomen: soft, nontender, Bowel sounds noted, no guarding Extremities: no BLE edema, nontender calf, no cyanosis or clubbing Neuro: A&Ox3, moves all extremities skin: right ankle and sole of foot have an ulcer. Non-erythematous or exudative Psych: Appropriate mood and behavior Internal Medicine: Result - Labs CBC & Chem 7: 03/07/17 05:04 03/07/17 05:04 Labs: Short CBC 03/07/17 Range/Units 05:04 WBC 8.7 (4.3-11.1) K/mcL Hgb 7.2 L (11.5-15.4) g/dL Hct 22.8 L (35.3-44.9) % Plt Count 226 (140-400) K/mcL Neutrophils # 5.9 (1.6-8.9) K/mcL BMP 03/07/17 05:04 Sodium 136 Potassium 4.2 Chloride 104 Carbon Dioxide 25 BUN 33 H D Creatinine 4.46 H Glucose 203 H Calcium 8.3 L - ABG Interpretation ABG results: PT/INR, D-dimer PT 14.0 Seconds (9.4-12.1) H 03/01/17 15:15 - Impressions Impressions Insertion Non-Tunneled Catheter 03/06/17 00:00 IMPRESSION: Successful fluoroscopic guided exchange of a temporary dialysis catheter D/ / Chapin Castillo MD / Chapin Castillo MD Interpreting Provider: Chapin Castillo MD Consult Discharge Plan - Plan Referrals: Suresh Mendoza MD [Primary Care Provider] - 03/12/17 2:00 pm (web request sent on 03/05/17) <Elder Mai H - Last Filed: 03/07/17 13:12> Date of Encounter: 03/07/17 - Constitutional Vitals: Temp Pulse Resp BP Pulse Ox 98.3 F 73 17 164/91 97 03/07/17 11:00 03/07/17 11:00 03/07/17 11:00 03/07/17 11:00 03/07/17 11:00 Internal Medicine: Result - Labs CBC & Chem 7: 03/07/17 05:04 03/07/17 05:04 Labs: Short CBC 03/07/17 Range/Units 05:04 WBC 8.7 (4.3-11.1) K/mcL Hgb 7.2 L (11.5-15.4) g/dL Hct 22.8 L (35.3-44.9) % Plt Count 226 (140-400) K/mcL Neutrophils # 5.9 (1.6-8.9) K/mcL BMP 03/07/17 05:04 Sodium 136 Potassium 4.2 Chloride 104 Carbon Dioxide 25 BUN 33 H D Creatinine 4.46 H Glucose 203 H Calcium 8.3 L - ABG Interpretation ABG results: PT/INR, D-dimer PT 14.0 Seconds (9.4-12.1) H 03/01/17 15:15 - Impressions Impressions Insertion Non-Tunneled Catheter 03/06/17 00:00 IMPRESSION: Successful fluoroscopic guided exchange of a temporary dialysis catheter D/ / Chapin Castillo MD / Chapin Castillo MD Interpreting Provider: Chapin Castillo MD - Attending Attestation Persistent bacteremia with MSSA, consider possible acute endocarditis versus line infection Continue vancomycin due to penicillin allergies Infectious diseases recommendation appreciated The patient is refusing to have a transesophageal echocardiogram Continue dialyses I examined this patient and my medical decision-making was reviewed with the Resident Physician. I agree with the documented findings, disposition and treatment plan as described except to the extent set forth below.
[2017-03-07] MEDS: Silver Sulfadiazine 50 GM TUBE TP SCH (12:39)
[2017-03-07] MEDS ORDERED: 0.9 % Sodium Chloride 250 ML ONE (14:09)
--- NOTE | 2017-03-07 16:09 | Infectious Disease Consult ---
Date of Encounter: 03/07/17 Time of Encounter: 16:07 Assessment and Plan (1) Sepsis Status: Acute Assessment and plan: The patient had three SIRS criteria on admission. Likely secondary to bacteremia. Improved. The patient has been afebrile. Her WBC has normalized. Tachycardia has resolved. The patient has had multiple positive blood cultures as outlined below. Qualifiers: Sepsis type: methicillin susceptible Staphylococcus aureus Qualified Code(s ): A41.01 - Sepsis due to Methicillin susceptible Staphylococcus aureus (2) Gram-positive cocci bacteremia Status: Acute Assessment and plan: Causative organism MSSA with one set of blood cultures positive for mecA gene. Source unclear: dialysis catheter (most likely) vs. abdominal wall wound vs ankle wound. Complicated due to persistently positive blood cultures. Peripheral blood culture drawn 03/01/17: + 1/1 sets for MSSA Perma-cath blood culture drawn 03/01/17: + 1/1 sets for MSSA. Perma-cath blood cultures drawn 03/03/17: + 2/2 for MSSA, but mecA gene isolated on PCR. Peripheral blood cultures drawn 03/04/17: + 1/2 for MSSA. Peripheral blood culture drawn 03/06/17: + 1/1 set for MSSA. Peripheral blood cultures drawn 03/06/17: pending x 2 sets. TDC blood cultures drawn 03/06/17: pending x 2 sets. Peripheral blood cultures drawn 03/07/17: pending x 2 sets. TDC Blood cultures drawn 03/07/17: pending x 1 set. The patient has no indwelling hardware or pacemakers. She did recently have a right chest perm-cath placed in January that had to re-placed shortly thereafter. She is unsure if she had any redness, tenderness, or drainage from the catheter site. Catheter removed 03/04/17. The patient has been on IV Vancomycin since 03/04/17. She was treated with linezolid for two days prior to that. Not sure what to make of the mecA gene that was noted on the PCR on 03/03/17 blood cultures. There may have been a CONS contaminant. Because the mecA gene was picked up on PCR, will err on the side of caution and treat as we would for MRSA. The patient has one major and one minor Modified Barrientos's Criteria. Called and spoke with micro who reports intermediate susceptibility to vancomycin (actual YANDY unavailable and has been sent out to reference lab for further testing). This would explain why the patient continues to be bacteremic. Discontinue Vancomycin. Start Daptomycin 1000mg IV Q48H. Check baseline CK level. Consider holding Zocor while on Daptomycin. TTE negative for valvular vegetations. Recommend a MARIO prior to discharge. Duration of treatment depends on the clinical picture. (3) Wound, open, abdominal wall, anterior Status: Acute Assessment and plan: Appears superficial and does not appear infected. Wound culture positive for MSSA. Consult wound care for recommendations. Qualifiers: Encounter type: initial encounter Qualified Code(s): S31.109A - Unspecified open wound of abdominal wall, unspecified quadrant without penetration into peritoneal cavity, initial encounter (4) Ulcer of right ankle Status: Acute Assessment and plan: Location: Right lateral ankle. Stage II. Clinically does not appear infected. Podiatry consulted who agrees that it does not appear infected. Wound culture positive for normal skin jacki. Wound care per podiatry's recommendations. 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 Nephrology consulted and following. Case discussed at length with Dr. Keane. (7) S/P dialysis catheter insertion Status: Acute Assessment and plan: Originally placed 01/17/17 with re-placement 02/08/17. The patient is unsure if the site appeared infection when she came to the hospital. TDC removed 03/01/17. Catheter tip was not sent for culture. Infectious Disease HPI - Data of Consult Patient: new to practice Consult date: 03/07/17 Requesting Physician: Elder Mai Primary Care Provider: Suresh Mendoza MD - Consult Narrative Reason for consult: Bacteremia History of present illness: Ms. Frederick is a 56 year old female with past medical history of end-stage renal disease on hemodialysis, fibromyalgia, diabetes, hypertension, CHF, CAD status post PA, and morbid obesity. The patient was admitted to the hospital March 01 for leukocytosis and sepsis. We are consult March 07 for further recommendations regarding persistent bacteremia. The patient's a 56-year-old female with past medical history as stated above. The patient presented to the emergency department with complaints of fever while at dialysis with a MAXIMUM TEMPERATURE of 103. She reports a 2 day history of generalized weakness prior to that. The patient was recently hospitalized and treated for pneumonia. Upon arrival to the ER, the patient was febrile tachycardic and have leukocytosis. A baseline. Troponin was mildly elevated at 0.16. Chest x-ray was negative. Urinalysis appeared contaminated. Blood cultures were obtained 2 sets, one from a peripheral stick and one from her tunneled dialysis catheter. She was started on empiric IV antibiotics and admitted to the hospital. Since admission, the patient's blood cultures have been persistently positive. Ultrasound obtained in the emergency department were +2 out of 2 sets for MSSA. Repeat blood cultures drawn March 03 from the patient's tunneled dialysis catheter were +2 out of 2 sets for staph aureus, but the PCR picked up the mecA gene although the culture only grew MSSA. The patient's tunneled dialysis catheter was removed 03/04/17, but the tip was not sent for culture. A new temporary dialysis catheter was placed in the left IJ by IR. Additional blood culture results are as below. Peripheral blood cultures drawn 03/04/17: + 1/2 for MSSA. Peripheral blood culture drawn 03/06/17: + 1/1 set for MSSA. Peripheral blood cultures drawn 03/06/17: pending x 2 sets. TDC blood cultures drawn 03/06/17: pending x 2 sets. Peripheral blood cultures drawn 03/07/17: pending x 2 sets. TDC Blood cultures drawn 03/07/17: pending x 1 set. The patient had a TTE that was negative for vegetations. MARIO has been recommended, but the patient is currently refusing. The patient's WBC has normalized and she has been afebrile for five days. Currently, the patient is on IV Vancomycin (day 3). We've been asked to evaluate and make further recommendations. During my exam today, the patient reports fevers, chills, or rigors prior to admission, which have resolved. She denies any recent congestion, earache, or sore throat. She reports she was recently hospitalized and treated for pneumonia , but denies any shortness of breath or cough prior to admission. She denies chest pain. She denies abdominal pain, nausea, vomiting, or diarrhea. She denies urinary complaints. She reports chronic back pain that is at baseline. She reports a chronic ulcer to her abdominal fold where the waistband of her pants rubs, but denies pain, redness, or drainage. She reports a chronic ulcer to the lateral right ankle and plantar aspect of the right foot that are non- painful and are not red, warm, or draining anything. She denies noticing any redness or tenderness at the previous tunneled dialysis catheter site, but states the dialysis staff were concerned that it was a little red and warm to touch on Saturday. The patient tells me she has only been on dialysis since the end of December. The patient lives at home with a roommate. She denies tobacco, drug, or alcohol use. She denies any recent travel. She does have one dog. CC: Elder Mai Past Med Surg Social Fam HX - Past Medical History Attestation: Yes The following information was validated with the patient. Source: patient, old records reviewed, nursing notes reviewed Medical history: arthritis, asthma, CHF, CVA, diabetes, dialysis, fibromyalgia, GERD, hyperlipidemia, hypertension, myocardial infarction, renal disease (ESRD on HD M/W/F.), other (Pneumonia, morbid obesity) Psychiatric history: anxiety, depression - Past Surgical History Surgical History: , orthopedic, other (Right ankle debridement) - Social History Smoking Status: Former smoker Smokeless Tobacco Status: No Alcohol use: none Drug use: none Occupational status: unemployed Current living situation: Home - Independent Activity Level: Independent ambulation Recent Out of Country Travel Within the Last 8 Weeks: No Exposure or Possible Exposure to Illness During Travel: No - Family History Mother Adopted: No Family Member Ethnicity: Non- Living Status: Age at : 60 Hx Family Cardiac Disorders: No Hx Family Respiratory Disorders: No Hx Family Cancer: Yes (Lung Ca) Hx Family GI Disorders: No Hx Family Genitourinary Disorders: No Hx Family Endocrine Disorder: No Hx Family Musculoskeletal Disorders: No Hx Family Neuromuscular Disorders: No Hx Family Neurologic Disorders: No Hx Family HEENT Disorders: No Hx Family Autoimmune Disorders: No Hx Family Reproductive Disorders: No Hx Family Psychosocial Disorders: No Hx Family Medical Disorders: No Father Adopted: No Family Member Ethnicity: Non- Living Status: Age at : 60 Cause of : Lung Ca Hx Family Cardiac Disorders: No Hx Family Respiratory Disorders: Yes Hx Family Cancer: Yes (Lung Ca) Hx Family GI Disorders: No Hx Family Genitourinary Disorders: No Hx Family Endocrine Disorder: No Hx Family Musculoskeletal Disorders: No Hx Family Neuromuscular Disorders: No Hx Family Neurologic Disorders: No Hx Family HEENT Disorders: No Hx Family Autoimmune Disorders: No Hx Family Reproductive Disorders: No Hx Family Psychosocial Disorders: No Hx Family Medical Disorders: No Infectious Disease-CN:Meds Aspirin Enteric Coated [Aspirin EC] 81 mg PO DAILY 04/08/15 [History] Multivitamin [Multi-Day Vitamins] 1 tab PO DAILY 04/08/15 [History] Simvastatin [Zocor] 40 mg PO DAILY 04/08/15 [History] Omeprazole [PriLOSEC] 20 mg PO DAILY 12/06/15 [History] ALPRAZolam [Xanax 0.5 MG Tablet] 0.5 mg PO TID PRN 06/27/16 [History] Tizanidine HCl 2 mg PO TID PRN 06/27/16 [History] Budesonide/Formoterol 160/4.5 [Symbicort 160/4.5] 2 puff IH BIDR #1 inhaler [Rx] Ergocalciferol (VITAMIN D2) [Vitamin D2] 50,000 unit PO QWEEK 01/16/17 [History] Insulin DETEMIR [Levemir Flextouch] 10 unit SQ BID 01/16/17 [History] Iron Polysaccharide Complex [Ferrex 150] 150 mg PO DAILY 01/16/17 [History] Metoprolol [Lopressor] 112.5 mg PO BID 01/16/17 [History] Kent-3/Dha/Epa/Fish Oil [Fish Oil 1,000 mg Softgel] 4 cap PO DAILY 01/16/17 [ History] Losartan Potassium [Cozaar] 100 mg PO DAILY #30 01/21/17 [Rx] Calcium Acetate [Phos-LO] 667 mg PO TIDWM 02/25/17 [History] Furosemide [Lasix] 40 mg PO BID 02/25/17 [History] Insulin LISPRO [Humalog Kwikpen U-100] 5 unit SQ TID PRN 02/25/17 [History] NIFEdipine [Nifedipine ER] 60 mg PO DAILY 02/25/17 [History] 3 Allergy/AdvReac Type Severity Reaction Status Date / Time amitriptyline Allergy feels drunk Verified 02/24/17 22:56 amlodipine Allergy See Verified 02/24/17 22:56 Comments Amoxicillin [From Augmentin] Allergy Itching Verified 02/24/17 22:56 clavulanic acid Allergy Itching Verified 02/24/17 22:56 [From Augmentin] gabapentin [From Neurontin] Allergy make me Verified 02/24/17 22:56 sick at my stomach pregabalin [From Lyrica] Allergy Swelling Verified 02/24/17 22:56 of Lip/Tongue/Throat CAROLYN Inhibitors AdvReac Palpitation Verified 02/24/17 22:56 s fenofibrate [From Tricor] AdvReac Drowsy Verified 02/24/17 22:56 All systems: reviewed and no additional remarkable complaints except as stated Exam - Constitutional Vitals: Temp Pulse Resp BP Pulse Ox 98.0 F 76 14 152/76 96 03/07/17 14:29 03/07/17 14:29 03/07/17 14:29 03/07/17 14:29 03/07/17 14:29 General appearance: cooperative, morbidly obese, no acute distress - Head Head exam: Present: atraumatic, normal inspection, normocephalic - Eye Eye exam: Present: EOMI, normal appearance, PERRL Pupils: Present: normal accommodation Additional comments: No subconjunctival hemorrhage noted. - ENT ENT exam: Present: mucous membranes moist - Neck Neck exam: Present: normal inspection - Respiratory Respiratory exam: Present: CTAB. Absent: rales, respiratory distress, rhonchi, wheezes - Cardiovascular Cardiovascular exam: Present: RRR, +S1, +S2 - GI/Abdominal GI/Abdominal exam: Present: distended (obese), normal bowel sounds, soft. Absent: tenderness Additional comments: Superifical wound noted to the abdominal fold without erythema, warmth, or drainage noted. - Extremities Exam Extremities exam: Absent: joint swelling, pedal edema, tenderness Additional comments: Stage II ulcer noted to the lateral aspect of the right ankle without tenderness , warmth, fluctuance, or drainage. Stage II scabbed ulcer noted to the plantar/lateral aspect of the right foot without tenderness, warmth, or fluctuance noted. - Back Exam Back exam: Present: normal inspection, paraspinal tenderness (lumbar spine - chronic). Absent: vertebral tenderness - Neurological Exam Neurological exam: Present: alert, oriented X3, no focal deficits - Psychiatric Psychiatric exam: Present: normal affect, normal mood - Skin Skin exam: Present: dry, intact, normal color, warm Additional comments: No endocarditis stigmata noted. Infectious Disease CN: Results - Labs CBC & Chem 7: 03/08/17 02:15 03/08/17 02:15 Cultures: Cultures 03/04/17 14:50 Blood Culture - Final Peripheral Venipuncture Staphylococcus aureus 03/06/17 01:00 Blood Culture - Preliminary Central Venous Catheter Gram Positive Cocci - Clusters 03/04/17 14:50 Blood Culture - Preliminary Peripheral Venipuncture No growth. 03/03/17 09:55 Blood Culture - Final Central Venous Catheter Staphylococcus aureus 03/03/17 10:05 Blood Culture - Preliminary Central Venous Catheter Staphylococcus aureus 03/02/17 17:12 Wound Culture - Preliminary Abdomen Staphylococcus aureus 03/02/17 17:11 Wound Culture - Final Right Ankle Normal skin jacki. No apparent pathogens isolated. 03/02/17 05:15 Influenza Types A,B Antigen (YANDY) - Final Nasopharyngeal Serology: Serology 03/06/17 03/03/17 Range/Units 01:00 09:55 A. baumannii (PCR) Not Detected Not Detected (Not Detect) Megan albicans (PCR) Not Detected Not Detected (Not Detect) C. glabrata (PCR) Not Detected Not Detected (Not Detect) C. krusei (PCR) Not Detected Not Detected (Not Detect) C. parapsilosis (PCR) Not Detected Not Detected (Not Detect) C. tropicalis (PCR) Not Detected Not Detected (Not Detect) Enterobacteriac sp PCR Not Detected Not Detected (Not Detect) E. cloacae complex PCR Not Detected Not Detected (Not Detect) Enterococcus sp PCR Not Detected Not Detected (Not Detect) E. coli (PCR) Not Detected Not Detected (Not Detect) H. influenzae (PCR) Not Detected Not Detected (Not Detect) Klebsiella oxytoca PCR Not Detected Not Detected (Not Detect) Klebsiella pneumoniae Not Detected Not Detected (Not Detect) List. monocytogenes PCR Not Detected Not Detected (Not Detect) N. meningitidis (PCR) Not Detected Not Detected (Not Detect) Proteus species (PCR) Not Detected Not Detected (Not Detect) Serratia marcescens PCR Not Detected Not Detected (Not Detect) Staphylococcus sp PCR DETECTED A DETECTED A (Not Detect) Staph aureus (PCR) DETECTED A DETECTED A (Not Detect) mecA-Methicil Res Gene Not Detected DETECTED A (Not Detect) Streptococcus sp PCR Not Detected Not Detected (Not Detect) Group A Strep DNA Not Detected Not Detected (Not Detect) Group B Strep (PCR) Not Detected Not Detected (Not Detect) Strep pneumoniae (PCR) Not Detected Not Detected (Not Detect) P. aeruginosa (PCR) Not Detected Not Detected (Not Detect) Jonh/B-Vanco Res Genes N/A N/A (Not Detect) KPC (blaKPC) Detect PCR N/A N/A (Not Detect) Consult Discharge Plan - Plan Referrals: Suresh Mendoza MD [Primary Care Provider] - 03/12/17 2:00 pm (web request sent on 03/05/17)
[2017-03-07] MEDS: DAPTOmycin 1,000 MG in 0.9 % Sodium Chloride 100 ML IVPB SCH (18:50)
[2017-03-08] MEDS: hydrALAZINE 25 MG TABLET PO SCH ×4 (00:44→23:25)
[2017-03-08 03:32] LABS: Basophils % 0.4 %; Eosinophils # 0.2 K/mcL (0.0-0.6); Eosinophils % 1.9 %; Hematocrit 24.5 % (35.3-44.9); Hemoglobin 7.9 g/dL (11.5-15.4); Immature Granulocytes % 0.9 % (0-4); Lymphocytes # 2.3 K/mcL (0.6-4.6); Lymphocytes % 23.2 %; Mean Corpuscular HGB Conc 32.2 g/dL (31.6-35.5); Mean Corpuscular Hemoglobin 28.2 pg (28.0-33.3); Mean Corpuscular Volume 87.5 fL (83.0-100.0); Mean Platelet Volume 9.7 fL (9.4-12.4); Monocytes # 0.6 K/mcL (0.0-1.3); Monocytes % 6.2 %; Neutrophils # 6.7 K/mcL (1.6-8.9); Platelet Count 200 K/mcL (140-400); Red Cell Distribution Width 15.3 % (11.5-14.5); Segmented Neutrophils % 67.4 %
[2017-03-08 03:45] LABS: Calcium 8.5 mg/dL (8.6-10.8); Potassium 4.6 mEq/L (3.5-4.5)
[2017-03-08] MEDS: *HR* Heparin 5,000 UNIT/ML VIAL SQ SCH ×2 (06:57→16:39)
[2017-03-08] MEDS ORDERED: 0.9 % Sodium Chloride 250 ML IVC PRN (07:54)
[2017-03-08] MEDS ORDERED: *HR* Heparin 10,000 UNIT/10 ML VIAL IV PRN (07:54)
[2017-03-08] MEDS ORDERED: 0.9 % Sodium Chloride 1,000 ML PRIME SCH (08:00)
[2017-03-08] MEDS: Multivit/Ca/Min/Fe/FA 1 TAB TABLET PO SCH (08:02)
[2017-03-08] MEDS: Calcium Acetate 667 MG CAPSULE PO SCH ×4 (08:02→16:37)
[2017-03-08] MEDS: Furosemide 40 MG TABLET PO SCH ×2 (08:02→08:05)
[2017-03-08] MEDS: NIFEdipine XL (24 HR) 60 MG TAB.ER.24 PO SCH (08:02)
[2017-03-08] MEDS: Iron Polysaccharide Complex 150 MG CAPSULE PO SCH (08:03)
[2017-03-08] MEDS: Silver Sulfadiazine 50 GM TUBE TP SCH (08:06)
[2017-03-08] MEDS: Insulin LISPRO 300 UNITS/3 ML VIAL SQ SCH ×4 (08:07→20:52)
[2017-03-08] MEDS: Insulin DETEMIR 100 UNIT/ML X5UNITS SQ SCH ×2 (09:14→20:58)
--- NOTE | 2017-03-08 09:20 | Nephrology Progress Note ---
Date of Encounter: 03/08/17 Time of Encounter: 08:55 - Assessment and Plan (1) ESRD (end stage renal disease) on dialysis Current Visit: No Status: Chronic ESRD on HD every M/W/ and she's due for HD today. Orders were already placed by Dr. Keane who was on-call until 8am today. Agree with heparin 3000 unit boolus at beginning of HD, but if the temporary HD catheter continues to poorly flow, then I'll add 1000 units per hour for the remainder of her planned 3.5 hr of HD. HD for electrolyte and clearance management. She appeared euvolemic today on exam. (2) Gram-positive cocci bacteremia Current Visit: Yes Status: Acute I reviewed the sign-out info from Dr. Keane. Pt has Staph bacteremia and she has been worked up by IR. Pt has refused MARIO. Most recent BCx fro 03/06 are NGTD but preliminary. When safely able, then she' ll need a Permacath placed before discharge. 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 (3) S/P dialysis catheter insertion Current Visit: Yes Status: Acute (4) Sepsis Current Visit: Yes Status: Acute Appreciate primary and ID Qualifiers: Sepsis type: methicillin susceptible Staphylococcus aureus Qualified Code(s ): A41.01 - Sepsis due to Methicillin susceptible Staphylococcus aureus (5) Morbid obesity Current Visit: No Status: Chronic Counseled her on lifestyle modifications. (6) Anemia in chronic illness Current Visit: No Status: Chronic Goal Hgb in the setting of ESRD is 10-11. Recommend ongoing MARIBEL. (7) Hyponatremia Current Visit: No Status: Chronic Improved today. Several historical mild hyponatremic episodes that are most likely secondary to ESRD and hypervolemia. (8) Hyperkalemia Current Visit: No Status: Chronic Mild, recurrent, most likely secondary to ESRD and dietary indiscretion. Provide a renal diet. Subjective Principal diagnosis: ESRD Interval history: Pt was s/e. She did not affirm N/V, F/C, rigors and said that the discomfort was slightly improved at the site of the left IJ temporary HD catheter. She last dialyzed on Saturday she said. Objective - Vital Signs Vital signs: Vital Signs Temp Pulse Resp BP Pulse Ox 03/08/17 07:21 98.2 F 77 16 175/84 97 03/08/17 03:39 98.4 F 73 16 156/82 96 03/07/17 23:23 98.7 F 70 16 145/72 96 03/07/17 20:00 16 97 03/07/17 19:31 98.7 F 81 16 153/64 97 03/07/17 17:22 97.9 F 79 14 168/79 97 03/07/17 16:51 98.3 F 77 18 157/66 96 03/07/17 14:29 98.0 F 76 14 152/76 96 03/07/17 14:14 97.8 F 73 14 157/71 97 03/07/17 14:11 97.8 F 73 16 157/71 97 03/07/17 11:00 98.3 F 73 17 164/91 97 03/07/17 09:49 18 98 Intake and Output 03/07/17 03/08/17 03/08/17 23:59 07:59 15:59 Intake Total 515 / 515 200 / 200 Balance 515 / 515 200 / 200 Intake: Oral 240 / 240 200 / 200 Blood Product 275 / 275 Rbcs Leuko Poor As-3 Ph Unit 275 / 275 [id number] Other: Meal Dinner Percent of Meal Consumed 100% # Voids 1 Weight 107.048 kg Blood Glucose* 202 166 Patient Weight 03/08/17 23:59 Weight 107.048 kg - General Appearance General appearance: Present: well-developed, well-nourished, appears started age , obese EENT: Present: ATNC, PERRL, mucous membranes moist Neck: Present: supple Respiratory: Present: clear Cardiology: Present: no edema, regular rate, regular rhythm, normal S1, normal S2 Dialysis Vascular Access: Venous Catheter (Left IJ temporary HD catheter, triple lumen, no surrounding erythema, exudates and the Tegaderm was cleaning adhered.) Gastrointestinal: Present: normoactive bowel sounds, no tenderness, no guarding , obese Integumentary: Present: no rash, warm and dry Neurologic: Present: no focal deficit, no asterixis, alert and oriented x3 Musculoskeletal: Present: no deformities, no erythema, no cyanosis, no clubbing Psychiatric: Present: mood/affect appropriate - Lab 03/08/17 02:15 03/08/17 02:15 Most recent lab results Calcium 8.5 mg/dL (8.6-10.8) L 03/08/17 02:15 Phosphorus 3.4 mg/dL (2.3-4.7) 03/01/17 15:15 Magnesium 1.7 mg/dL (1.6-2.6) 03/04/17 04:36 Consult Discharge Plan - Plan Referrals: Suresh Mendoza MD [Primary Care Provider] - 03/12/17 2:00 pm (web request sent on 03/05/17)
[2017-03-08] MEDS: Budesonide/Formoterol 160/4.5 MDI IH SCH ×2 (10:14→20:53)
--- NOTE | 2017-03-08 10:40 | Internal Med Progress Note ---
<Yaquelin Hudson - Last Filed: 03/08/17 11:04> Date of Encounter: 03/08/17 Time of Encounter: 10:38 - Assessment and plan (1) Sepsis Current Visit: Yes Status: Acute Assessment and plan: Sepsis secondary to MSSA Persistent bacteremia with MSSA, consider possible acute endocarditis versus line infection Patient is afebrile, WBC WNL Origin of infection is most likely abdominal ulcer in panus vs non healing ulcer on foot. Perma cath was removed Echo TTE showed LVEF 55%, mild diastolic dysfunction, trivial pericardial effusion. Chest x-ray normal Blood cultures 03/03/2017 grew Staph aureus 2/2. However, lab results on computer state that she is PCR POSITIVE for MRSA. After calling lab, it seems that this is possibly MSSA. She did clinically improve with Cefepime and Linezolid. Abdomen ulcer ulcer in panus- grew staph aureus Wound culture- right ankle no pathogens present Patient was advised to get MARIO but refused Received 4 days on Vancomycin -Blood cultures 03/06/2017 final grew staph aureus -ID following -await ID recommendation on Abx to D/C on -Daptomycin day 2 -Will wait on final result of blood culture so that new perma cath may be placed before D/C -new blood cultures ordered Qualifiers: Sepsis type: methicillin susceptible Staphylococcus aureus Qualified Code(s ): A41.01 - Sepsis due to Methicillin susceptible Staphylococcus aureus (2) Anemia in chronic illness Current Visit: No Status: Chronic Assessment and plan: Patient has anemia of chronic disease hemoglobin not improving and is 7.2 Patient has given 1 unit PRBC -started on Aranesp -continue to monitor H&H (3) ESRD (end stage renal disease) on dialysis Current Visit: No Status: Chronic Assessment and plan: Patient has end-stage renal disease- dialysis on Saturday, Saturday, Saturday IJ catheter is in place and functional -Nephrology following, recommendations appreciated -dialysis today -Preliminary blood culture 03/06/2017 negative. HD port replacement when final report of blood cultures negative (4) Diabetes Current Visit: No Status: Chronic Assessment and plan: History of diabetes -Continue Levemir and sliding scale Qualifiers: Diabetes mellitus type: type 2 Diabetes mellitus complication status: with neurologic complications Diabetes mellitus complication detail: with polyneuropathy Diabetes mellitus longterm insulin use: with superintendent marine oil terminal use Qualified Code(s): E11.42 - Type 2 diabetes mellitus with diabetic polyneuropathy; Z79.4 - superintendent marine oil terminal (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; Z79.4 - superintendent marine oil terminal ( 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; Z79.4 - superintendent marine oil terminal (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; Z79.4 - long-term (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 (5) Foot ulcer due to secondary DM Current Visit: No Status: Chronic Assessment and plan: Wound care is following patient is continuing to treat her ulcers on her right ankle and sole of foot podiatry has seen the patient and she is to follow up with Dr. Winn on 2016 (6) Morbid obesity Current Visit: No Status: Chronic (7) Hypertension Current Visit: No Status: Chronic Assessment and plan: SBP running in 140s to 160s -Continue home medications of nifedipine, losartan -will increase dose of Lopressor, she is currently not on home dose -hydralazine 25 mg PO Qualifiers: Hypertension type: essential hypertension Qualified Code(s): I10 - Essential (primary) hypertension (8) Tobacco abuse Current Visit: No Status: Chronic - Subjective Interval history: Patient is laying in bed while undergoing dialysis. denies fever, chills, chest pain, shortness of breath, blood in stool, abdominal pain she is pleased to find out that her blood cultures have come back with no growth - Constitutional Vitals: Temp Pulse Resp BP Pulse Ox 98.2 F 77 16 175/84 97 03/08/17 07:21 03/08/17 07:21 03/08/17 07:21 03/08/17 07:21 03/08/17 07:21 General appearance: Present: A&O X 3, answers questions appropriately Exam: Gen.: Vitals noted. No acute distress. AAOx3 HEENT: oropharynx clear, Normocephalic, atraumatic Cardiac: RRR, no murmur, +S1/S2 Pulmonary: CTA bilaterally, no wheezes, rales or rhonchi, equal chest expansion Abdomen: soft, nontender, Bowel sounds noted, no guarding Extremities: no BLE edema, nontender calf, no cyanosis or clubbing, right foot has 2 non-erythematous or exudate ulcers Neuro: A&Ox3, moves all extremities Psych: Appropriate mood and behavior Internal Medicine: Result - Labs CBC & Chem 7: 03/08/17 02:15 03/08/17 02:15 Labs: Short CBC 03/08/17 Range/Units 02:15 WBC 9.9 (4.3-11.1) K/mcL Hgb 7.9 L (11.5-15.4) g/dL Hct 24.5 L (35.3-44.9) % Plt Count 200 (140-400) K/mcL Neutrophils # 6.7 (1.6-8.9) K/mcL [facility] 03/08/17 02:15 Sodium 137 Potassium 4.6 H Chloride 105 Carbon Dioxide 24 BUN 40 H Creatinine 5.42 H Glucose 149 H Calcium 8.5 L - ABG Interpretation ABG results: PT/INR, D-dimer PT 14.0 Seconds (9.4-12.1) H 03/01/17 15:15 Consult Discharge Plan - Plan Referrals: Suresh Mendoza MD [Primary Care Provider] - 03/12/17 2:00 pm (web request sent on 03/05/17) <Elder Mai H - Last Filed: 03/08/17 15:03> Date of Encounter: 03/08/17 - Constitutional Vitals: Temp Pulse Resp BP Pulse Ox 98.5 F 77 16 177/86 97 03/08/17 13:35 03/08/17 07:21 03/08/17 13:35 03/08/17 13:40 03/08/17 07:21 Internal Medicine: Result - Labs CBC & Chem 7: 03/08/17 02:15 03/08/17 02:15 Labs: Short CBC 03/08/17 Range/Units 02:15 WBC 9.9 (4.3-11.1) K/mcL Hgb 7.9 L (11.5-15.4) g/dL Hct 24.5 L (35.3-44.9) % Plt Count 200 (140-400) K/mcL Neutrophils # 6.7 (1.6-8.9) K/mcL [facility] 03/08/17 02:15 Sodium 137 Potassium 4.6 H Chloride 105 Carbon Dioxide 24 BUN 40 H Creatinine 5.42 H Glucose 149 H Calcium 8.5 L - ABG Interpretation ABG results: PT/INR, D-dimer PT 14.0 Seconds (9.4-12.1) H 03/01/17 15:15 - Attending Attestation Persistent bacteremia with MSSA, consider possible acute endocarditis versus line infection Discontinue vancomycin IV Continue Daptomycin (ID recommending to continue treating as it would be MRSA ( Mec A gene +) Infectious diseases recommendation appreciated The patient is still refusing to have a transesophageal echocardiogram Continue dialyses I examined this patient and my medical decision-making was reviewed with the Resident Physician. I agree with the documented findings, disposition and treatment plan as described except to the extent set forth below.
--- NOTE | 2017-03-08 11:55 | Infectious Disease Progress No ---
Date of Encounter: 03/08/17 Time of Encounter: 11:52 - Assessment and Plan (1) Sepsis Current Visit: Yes Status: Resolved The patient had three SIRS criteria on admission. Likely secondary to bacteremia. Improved. The patient has been afebrile. Her WBC has normalized. Tachycardia has resolved. The patient has had multiple positive blood cultures as outlined below. Qualifiers: Sepsis type: methicillin susceptible Staphylococcus aureus Qualified Code(s ): A41.01 - Sepsis due to Methicillin susceptible Staphylococcus aureus (2) Gram-positive cocci bacteremia Current Visit: Yes Status: Acute Causative organism MSSA with one set of blood cultures positive for mecA gene. Source unclear: dialysis catheter (most likely) vs. abdominal wall wound vs ankle wound. Complicated due to persistently positive blood cultures. Peripheral blood culture drawn 03/01/17: + 1/1 sets for MSSA Perma-cath blood culture drawn 03/01/17: + 1/1 sets for MSSA. Perma-cath blood cultures drawn 03/03/17: + 2/2 for MSSA, but mecA gene isolated on PCR. Peripheral blood cultures drawn 03/04/17: + 1/2 for MSSA. Peripheral blood culture drawn 03/06/17: + 1/1 set for MSSA. Peripheral blood cultures drawn 03/06/17: are negative 1/1 set. TDC blood cultures drawn 03/06/17: are positive 2/3 sets. Peripheral blood cultures drawn 03/07/17: pending x 2 sets. TDC Blood cultures drawn 03/07/17: pending x 1 set. The patient has no indwelling hardware or pacemakers. She did recently have a right chest perm-cath placed in January that had to re-placed shortly thereafter. She is unsure if she had any redness, tenderness, or drainage from the catheter site. Catheter removed 03/04/17. The patient has been on IV Vancomycin since 03/04/17. She was treated with linezolid for two days prior to that. Not sure what to make of the mecA gene that was noted on the PCR on 03/03/17 blood cultures. There may have been a CONS contaminant. Because the mecA gene was picked up on PCR, will err on the side of caution and treat as we would for MRSA. The patient has one major and one minor Modified Barrientos's Criteria. Called and spoke with micro who reports intermediate susceptibility to vancomycin (actual YANDY unavailable and has been sent out to reference lab for further testing). This would explain why the patient continues to be bacteremic. Continue Daptomycin 1000mg IV Q48H. Consider holding Zocor while on Daptomycin. TTE negative for valvular vegetations. Recommend a MARIO prior to discharge. Duration of treatment depends on the clinical picture. (3) Wound, open, abdominal wall, anterior Current Visit: Yes Status: Acute Appears superficial and does not appear infected. Wound culture positive for MSSA. Consult wound care for recommendations. Qualifiers: Encounter type: initial encounter Qualified Code(s): S31.109A - Unspecified open wound of abdominal wall, unspecified quadrant without penetration into peritoneal cavity, initial encounter (4) Ulcer of right ankle Current Visit: Yes Status: Acute Location: Right lateral ankle. Stage II. Clinically does not appear infected. Podiatry consulted who agrees that it does not appear infected. Wound culture positive for normal skin jacki. Wound care per podiatry's recommendations. Qualifiers: Non-pressure ulcer stage: with fat layer exposed Qualified Code(s): L97.312 - Non-pressure chronic ulcer of right ankle with fat layer exposed (5) Elevated troponin Current Visit: Yes Status: Chronic (6) History of end stage renal disease Current Visit: Yes Status: Acute Follows with [facility]. Nephrology consulted and following. Case discussed at length with Dr. Keane. (7) S/P dialysis catheter insertion Current Visit: Yes Status: Acute Originally placed 01/17/17 with re-placement 02/08/17. The patient is unsure if the site appeared infection when she came to the hospital. TDC removed 03/01/17. Catheter tip was not sent for culture. - Subjective Interval history: Patient seen and examined in the HD unit. States she is tired, but overall feels well. Denies fevers, chills, or rigors. Denies chest pain, shortness of breath, or cough. Complains of chronic pain "all over." Denies abdominal pain, nausea, vomiting, diarrhea, or urinary complaints. States appetite is good. Denies oral thrush or skin lesions. Infect Dis PN-Objective Data - Labs CBC & Chem 7: 03/08/17 02:15 03/08/17 02:15 Labs: Laboratory Results - last 24 hr 03/07/17 03/07/17 03/08/17 11:03 12:24 02:15 WBC 9.9 RBC 2.80 L Hgb 7.9 L Hct 24.5 L MCV 87.5 MCH 28.2 MCHC 32.2 RDW 15.3 H Plt Count 200 MPV 9.7 Immature Gran % 0.9 Seg Neutrophils % 67.4 Lymphocytes % 23.2 Monocytes % 6.2 Eosinophils % 1.9 Basophils % 0.4 Neutrophils # 6.7 Lymphocytes # 2.3 Monocytes # 0.6 Eosinophils # 0.2 Basophils # 0.0 Sodium Potassium Chloride Carbon Dioxide BUN Creatinine Est GFR ( Amer) Est GFR (Non-Af Amer) BUN/Creatinine Ratio Glucose POC Glucose 194 H Calculated Osmolality Calcium Random Vancomycin Blood Type O NEGATIVE Antibody Screen NEGATIVE Crossmatch See Detail 03/08/17 03/08/17 03/08/17 02:15 02:15 07:31 WBC RBC Hgb Hct MCV MCH MCHC RDW Plt Count MPV Immature Gran % Seg Neutrophils % Lymphocytes % Monocytes % Eosinophils % Basophils % Neutrophils # Lymphocytes # Monocytes # Eosinophils # Basophils # Sodium 137 Potassium 4.6 H Chloride 105 Carbon Dioxide 24 BUN 40 H Creatinine 5.42 H Est GFR ( Amer) 10 L Est GFR (Non-Af Amer) 8 L BUN/Creatinine Ratio 7 Glucose 149 H POC Glucose 166 H Calculated Osmolality 297 Calcium 8.5 L Random Vancomycin 20.4 Blood Type Antibody Screen Crossmatch 03/08/17 11:26 WBC RBC Hgb Hct MCV MCH MCHC RDW Plt Count MPV Immature Gran % Seg Neutrophils % Lymphocytes % Monocytes % Eosinophils % Basophils % Neutrophils # Lymphocytes # Monocytes # Eosinophils # Basophils # Sodium Potassium Chloride Carbon Dioxide BUN Creatinine Est GFR ( Amer) Est GFR (Non-Af Amer) BUN/Creatinine Ratio Glucose POC Glucose 184 H Calculated Osmolality Calcium Random Vancomycin Blood Type Antibody Screen Crossmatch Cultures: Cultures 03/06/17 15:50 Blood Culture - Preliminary Peripheral Venipuncture No growth. 03/06/17 16:00 Blood Culture - Preliminary Central Venous Catheter No growth. 03/06/17 16:00 Blood Culture - Preliminary Central Venous Catheter No growth. 03/06/17 01:00 Blood Culture - Final Central Venous Catheter Staphylococcus aureus 03/04/17 14:50 Blood Culture - Final Peripheral Venipuncture Staphylococcus aureus 03/04/17 14:50 Blood Culture - Preliminary Peripheral Venipuncture No growth. 03/03/17 09:55 Blood Culture - Final Central Venous Catheter Staphylococcus aureus 03/03/17 10:05 Blood Culture - Preliminary Central Venous Catheter Staphylococcus aureus 03/02/17 17:12 Wound Culture - Preliminary Abdomen Staphylococcus aureus 03/02/17 17:11 Wound Culture - Final Right Ankle Normal skin jacki. No apparent pathogens isolated. 03/02/17 05:15 Influenza Types A,B Antigen (YANDY) - Final Nasopharyngeal Serology 03/06/17 03/03/17 Range/Units 01:00 09:55 A. baumannii (PCR) Not Detected Not Detected (Not Detect) Megan albicans (PCR) Not Detected Not Detected (Not Detect) C. glabrata (PCR) Not Detected Not Detected (Not Detect) C. krusei (PCR) Not Detected Not Detected (Not Detect) C. parapsilosis (PCR) Not Detected Not Detected (Not Detect) C. tropicalis (PCR) Not Detected Not Detected (Not Detect) Enterobacteriac sp PCR Not Detected Not Detected (Not Detect) E. cloacae complex PCR Not Detected Not Detected (Not Detect) Enterococcus sp PCR Not Detected Not Detected (Not Detect) E. coli (PCR) Not Detected Not Detected (Not Detect) H. influenzae (PCR) Not Detected Not Detected (Not Detect) Klebsiella oxytoca PCR Not Detected Not Detected (Not Detect) Klebsiella pneumoniae Not Detected Not Detected (Not Detect) List. monocytogenes PCR Not Detected Not Detected (Not Detect) N. meningitidis (PCR) Not Detected Not Detected (Not Detect) Proteus species (PCR) Not Detected Not Detected (Not Detect) Serratia marcescens PCR Not Detected Not Detected (Not Detect) Staphylococcus sp PCR DETECTED A DETECTED A (Not Detect) Staph aureus (PCR) DETECTED A DETECTED A (Not Detect) mecA-Methicil Res Gene Not Detected DETECTED A (Not Detect) Streptococcus sp PCR Not Detected Not Detected (Not Detect) Group A Strep DNA Not Detected Not Detected (Not Detect) Group B Strep (PCR) Not Detected Not Detected (Not Detect) Strep pneumoniae (PCR) Not Detected Not Detected (Not Detect) P. aeruginosa (PCR) Not Detected Not Detected (Not Detect) Jonh/B-Vanco Res Genes N/A N/A (Not Detect) KPC (blaKPC) Detect PCR N/A N/A (Not Detect) Exam - Constitutional Vitals: Temp Pulse Resp BP Pulse Ox 98.5 F 77 18 178/79 97 03/08/17 09:35 03/08/17 07:21 03/08/17 09:35 03/08/17 10:35 03/08/17 07:21 General appearance: cooperative, morbidly obese, no acute distress - Head Head exam: Present: atraumatic, normal inspection, normocephalic - Eye Eye exam: Present: EOMI, normal appearance, PERRL Pupils: Present: normal accommodation Additional comments: no subconjunctival hemorrhage noted. - ENT ENT exam: Present: mucous membranes moist - Neck Neck exam: Present: normal inspection - Respiratory Respiratory exam: Present: CTAB. Absent: rales, respiratory distress, rhonchi, wheezes - Cardiovascular Cardiovascular exam: Present: RRR, +S1, +S2 - GI/Abdominal GI/Abdominal exam: Present: normal bowel sounds, soft. Absent: distended, tenderness - Extremities Exam Extremities exam: Present: normal inspection. Absent: joint swelling, pedal edema, tenderness Additional comments: No endocarditis stigmata noted. - Neurological Exam Neurological exam: Present: alert, oriented X3, no focal deficits - Psychiatric Psychiatric exam: Present: normal affect, normal mood - Skin Skin exam: Present: dry, intact, normal color, warm Consult Discharge Plan - Plan Referrals: Suresh Mendoza MD [Primary Care Provider] - 03/12/17 2:00 pm (web request sent on 03/05/17)
[2017-03-08] MEDS ORDERED: 0.9 % Sodium Chloride 1,000 ML ONE (13:50)
[2017-03-08] MEDS: *HR* OxyCODONE Immed Rel 5 MG TABLET PO PRN (21:10)
[2017-03-09 04:35] LABS: Basophils % 0.3 %; Eosinophils # 0.2 K/mcL (0.0-0.6); Eosinophils % 1.7 %; Hematocrit 24.2 % (35.3-44.9); Hemoglobin 7.7 g/dL (11.5-15.4); Immature Granulocytes % 1.4 % (0-4); Lymphocytes # 1.7 K/mcL (0.6-4.6); Lymphocytes % 19.1 %; Mean Corpuscular HGB Conc 31.8 g/dL (31.6-35.5); Mean Corpuscular Hemoglobin 27.9 pg (28.0-33.3); Mean Corpuscular Volume 87.7 fL (83.0-100.0); Mean Platelet Volume 9.8 fL (9.4-12.4); Monocytes # 0.6 K/mcL (0.0-1.3); Monocytes % 6.6 %; Neutrophils # 6.2 K/mcL (1.6-8.9); Platelet Count 185 K/mcL (140-400); Red Blood Count 2.76 M/mcL (3.82-4.97); Red Cell Distribution Width 15.1 % (11.5-14.5); Segmented Neutrophils % 70.9 %
[2017-03-09 04:47] LABS: Calcium 8.4 mg/dL (8.6-10.8); Potassium 4.4 mEq/L (3.5-4.5)
[2017-03-09] MEDS: *HR* Heparin 5,000 UNIT/ML VIAL SQ SCH ×2 (06:18→16:53)
[2017-03-09] MEDS: Calcium Acetate 667 MG CAPSULE PO SCH ×3 (07:45→16:53)
[2017-03-09] MEDS: NIFEdipine XL (24 HR) 60 MG TAB.ER.24 PO SCH (07:46)
[2017-03-09] MEDS: hydrALAZINE 25 MG TABLET PO SCH ×3 (07:46→16:53)
[2017-03-09] MEDS: Furosemide 40 MG TABLET PO SCH ×2 (07:46→16:53)
[2017-03-09] MEDS: Iron Polysaccharide Complex 150 MG CAPSULE PO SCH (07:46)
[2017-03-09] MEDS: Multivit/Ca/Min/Fe/FA 1 TAB TABLET PO SCH (07:46)
[2017-03-09] MEDS: Insulin LISPRO 300 UNITS/3 ML VIAL SQ SCH ×4 (07:47→20:16)
[2017-03-09] MEDS: Acetaminophen 325 MG TABLET PO PRN ×2 (08:00→20:15)
--- NOTE | 2017-03-09 08:32 | Internal Med Progress Note ---
<Yaquelin Hudson - Last Filed: 03/09/17 08:26> Date of Encounter: 03/09/17 Time of Encounter: 08:27 - Assessment and plan (1) Sepsis Current Visit: Yes Status: Resolved Assessment and plan: Admitted for Sepsis secondary to MSSA Persistent bacteremia with MSSA, consider possible acute endocarditis versus line infection Patient is afebrile, WBC WNL Origin of infection is most likely abdominal ulcer in panus vs non healing ulcer on foot. Perma cath was removed Echo TTE showed LVEF 55%, mild diastolic dysfunction, trivial pericardial effusion. Chest x-ray normal Blood cultures 03/03/2017 grew Staph aureus 2/2. However, lab results on computer state that she is PCR POSITIVE for MRSA. After calling lab, it seems that this is possibly MSSA. She did clinically improve with Cefepime and Linezolid. Abdomen ulcer ulcer in panus- grew staph aureus Wound culture- right ankle no pathogens present Patient was advised to get AMRIO but refused Received 4 days on Vancomycin -Blood cultures 03/07/2017 final GPC -Blood cultures 03/08/2017 pending -ID following -await ID recommendation on Abx to D/C on -Daptomycin day 2 -Will wait on final result of blood culture so that new perma cath may be placed before D/C -new blood cultures ordered Qualifiers: Sepsis type: methicillin susceptible Staphylococcus aureus Qualified Code(s ): A41.01 - Sepsis due to Methicillin susceptible Staphylococcus aureus (2) Anemia in chronic illness Current Visit: No Status: Chronic Assessment and plan: Patient has anemia of chronic disease hemoglobin not improving and is 7.7 Patient has given 1 unit PRBC -on Aranesp -continue to monitor H&H (3) ESRD (end stage renal disease) on dialysis Current Visit: No Status: Chronic Assessment and plan: Patient has end-stage renal disease- dialysis on Saturday, Saturday, Saturday IJ catheter is in place and functional -Nephrology following, recommendations appreciated -Blood culture 03/07/2017 grew GPC. HD port replacement when final report of blood cultures negative (4) Diabetes Current Visit: No Status: Chronic Assessment and plan: History of diabetes -Continue Levemir and sliding scale Qualifiers: Diabetes mellitus type: type 2 Diabetes mellitus complication status: with neurologic complications Diabetes mellitus complication detail: with polyneuropathy Diabetes mellitus intermediate project manager insulin use: with intermediate project manager use Qualified Code(s): E11.42 - Type 2 diabetes mellitus with diabetic polyneuropathy; Z79.4 - termite control service representative (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; Z79.4 - termite control service representative ( 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; Z79.4 - assisted (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; Z79.4 - termite control service representative (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 (5) Foot ulcer due to secondary DM Current Visit: No Status: Chronic Assessment and plan: Wound care is following patient is continuing to treat her ulcers on her right ankle and sole of foot podiatry has seen the patient and she is to follow up with Dr. Winn on 2016 (6) Morbid obesity Current Visit: No Status: Chronic (7) Hypertension Current Visit: No Status: Chronic Assessment and plan: SBP running in 180- 200s -Continue home medications of nifedipine, losartan -lopressor -increase dose of hydralazine Qualifiers: Hypertension type: essential hypertension Qualified Code(s): I10 - Essential (primary) hypertension (8) Tobacco abuse Current Visit: No Status: Chronic - Subjective Interval history: Patient is sitting up in bed eating breakfast denies fever, chills, chest pain, shortness of breath, blood in stool, abdominal pain She is not happy about her cultures coming back with growth She reports her abdominal ulcer is healing well. - Constitutional Vitals: Temp Pulse Resp BP Pulse Ox 98.4 F 87 17 212/87 96 03/09/17 07:36 03/09/17 07:36 03/09/17 07:36 03/09/17 07:36 03/09/17 07:36 General appearance: Present: A&O X 3, answers questions appropriately Exam: Gen.: Vitals noted. No acute distress. AAOx3 HEENT: oropharynx clear, Normocephalic, atraumatic Cardiac: RRR, no murmur, +S1/S2 Pulmonary: CTA bilaterally, no wheezes, rales or rhonchi, equal chest expansion Abdomen: soft, nontender, Bowel sounds noted, no guarding Extremities: no BLE edema, nontender calf, no cyanosis or clubbing Neuro: A&Ox3, moves all extremities Psych: Appropriate mood and behavior Internal Medicine: Result - Labs CBC & Chem 7: 03/09/17 04:11 03/09/17 04:11 Labs: Short CBC 03/09/17 Range/Units 04:11 WBC 8.7 (4.3-11.1) K/mcL Hgb 7.7 L (11.5-15.4) g/dL Hct 24.2 L (35.3-44.9) % Plt Count 185 (140-400) K/mcL Neutrophils # 6.2 (1.6-8.9) K/mcL [facility] 03/09/17 04:11 Sodium 138 Potassium 4.4 Chloride 105 Carbon Dioxide 26 BUN 31 H Creatinine 4.50 H Glucose 165 H Calcium 8.4 L - ABG Interpretation ABG results: PT/INR, D-dimer PT 14.0 Seconds (9.4-12.1) H 03/01/17 15:15 Consult Discharge Plan - Plan Referrals: Suresh Mendoza MD [Primary Care Provider] - 03/12/17 2:00 pm (web request sent on 03/05/17) <Elder Mai H - Last Filed: 03/09/17 09:21> Date of Encounter: 03/09/17 - Constitutional Vitals: Temp Pulse Resp BP Pulse Ox 98.4 F 87 17 212/87 96 03/09/17 07:36 03/09/17 07:36 03/09/17 07:36 03/09/17 07:36 03/09/17 07:36 Internal Medicine: Result - Labs CBC & Chem 7: 03/09/17 04:11 03/09/17 04:11 Labs: Short CBC 03/09/17 Range/Units 04:11 WBC 8.7 (4.3-11.1) K/mcL Hgb 7.7 L (11.5-15.4) g/dL Hct 24.2 L (35.3-44.9) % Plt Count 185 (140-400) K/mcL Neutrophils # 6.2 (1.6-8.9) K/mcL [facility] 03/09/17 04:11 Sodium 138 Potassium 4.4 Chloride 105 Carbon Dioxide 26 BUN 31 H Creatinine 4.50 H Glucose 165 H Calcium 8.4 L - ABG Interpretation ABG results: PT/INR, D-dimer PT 14.0 Seconds (9.4-12.1) H 03/01/17 15:15 - Attending Attestation Persistent bacteremia with MSSA, consider possible acute endocarditis versus line infection Discontinued vancomycin IV Continue Daptomycin (ID recommending to continue treating as it would be MRSA ( Mec A gene +) Infectious diseases recommendations appreciated The patient is still refusing to have a transesophageal echocardiogram Increased hydralazine to 50 mg 3 times a day, refusing IV hydralazine as it gives her chest pain Continue dialyses I examined this patient and my medical decision-making was reviewed with the Resident Physician. I agree with the documented findings, disposition and treatment plan as described except to the extent set forth below.
--- NOTE | 2017-03-09 09:25 | Event Note ---
Date of Encounter: 03/09/17 Time of Encounter: 09:24 Nephrology Reviewed labs. Next HD is planned for Saturday. Will be available this weekend if needed. Thank you.
[2017-03-09] MEDS: Silver Sulfadiazine 50 GM TUBE TP SCH (10:37)
[2017-03-09] MEDS: Budesonide/Formoterol 160/4.5 MDI IH SCH ×2 (10:47→20:50)
[2017-03-09] MEDS: Insulin DETEMIR 100 UNIT/ML X5UNITS SQ SCH ×2 (11:12→20:15)
[2017-03-09] MEDS: DAPTOmycin 1,000 MG in 0.9 % Sodium Chloride 100 ML IVPB SCH (17:36)
[2017-03-10] MEDS: hydrALAZINE 25 MG TABLET PO SCH ×4 (00:19→23:55)
[2017-03-10] MEDS: *HR* Heparin 5,000 UNIT/ML VIAL SQ SCH ×2 (04:37→17:18)
[2017-03-10 04:52] LABS: Basophils # 0.1 K/mcL (0.0-0.2); Basophils % 0.4 %; Eosinophils # 0.1 K/mcL (0.0-0.6); Eosinophils % 1.2 %; Hematocrit 26.2 % (35.3-44.9); Hemoglobin 8.3 g/dL (11.5-15.4); Lymphocytes % 17.8 %; Mean Corpuscular HGB Conc 31.7 g/dL (31.6-35.5); Mean Corpuscular Hemoglobin 27.9 pg (28.0-33.3); Mean Corpuscular Volume 88.2 fL (83.0-100.0); Mean Platelet Volume 9.3 fL (9.4-12.4); Monocytes # 0.7 K/mcL (0.0-1.3); Monocytes % 5.9 %; Neutrophils # 8.3 K/mcL (1.6-8.9); Platelet Count 203 K/mcL (140-400); Red Blood Count 2.97 M/mcL (3.82-4.97); Segmented Neutrophils % 72.7 %
[2017-03-10 05:02] LABS: Calcium 8.8 mg/dL (8.6-10.8); Potassium 4.4 mEq/L (3.5-4.5)
[2017-03-10] MEDS: Acetaminophen 325 MG TABLET PO PRN (07:47)
[2017-03-10] MEDS: Insulin LISPRO 300 UNITS/3 ML VIAL SQ SCH ×4 (07:47→20:25)
[2017-03-10] MEDS: Furosemide 40 MG TABLET PO SCH ×2 (07:48→17:18)
[2017-03-10] MEDS: NIFEdipine XL (24 HR) 60 MG TAB.ER.24 PO SCH (07:48)
[2017-03-10] MEDS: Calcium Acetate 667 MG CAPSULE PO SCH ×3 (07:48→17:18)
[2017-03-10] MEDS: Multivit/Ca/Min/Fe/FA 1 TAB TABLET PO SCH (07:49)
[2017-03-10] MEDS: Iron Polysaccharide Complex 150 MG CAPSULE PO SCH (07:49)
[2017-03-10] MEDS: Silver Sulfadiazine 50 GM TUBE TP SCH (07:49)
[2017-03-10] MEDS: Insulin DETEMIR 100 UNIT/ML X5UNITS SQ SCH ×2 (09:46→20:26)
--- NOTE | 2017-03-10 11:22 | Internal Med Progress Note ---
<Yaquelin Hudson - Last Filed: 03/10/17 13:31> Date of Encounter: 03/10/17 Time of Encounter: 11:20 - Assessment and plan (1) Sepsis Current Visit: Yes Status: Resolved Assessment and plan: Admitted for Sepsis secondary to MSSA Persistent bacteremia with MSSA, consider possible acute endocarditis versus line infection Origin of infection is most likely abdominal ulcer in panus vs non healing ulcer on foot. Perma cath was removed Echo TTE showed LVEF 55%, mild diastolic dysfunction, trivial pericardial effusion. Chest x-ray normal Blood cultures 03/03/2017 grew Staph aureus 2/2. However, lab results on computer state that she is PCR POSITIVE for MRSA. After calling lab, it seems that this is possibly MSSA. She did clinically improve with Cefepime and Linezolid. Abdomen ulcer ulcer in panus- grew staph aureus Wound culture- right ankle no pathogens present Received 4 days on Vancomycin -Blood cultures 03/07/2017 final GPC Patient is afebrile, WBC increased 11.5, yesterday 8.7 Denies shortness of breath and dysuria Patient has been advised on multiple occasions to get MARIO but has consistently refused -Blood cultures 03/09/2017 grows GPC -Daptomycin day 3 -ordering new blood cultures -ID following -await ID recommendation on Abx to D/C on -Will wait on final result of blood culture so that new perma cath may be placed before D/C Qualifiers: Sepsis type: methicillin susceptible Staphylococcus aureus Qualified Code(s ): A41.01 - Sepsis due to Methicillin susceptible Staphylococcus aureus (2) Anemia in chronic illness Current Visit: No Status: Chronic Assessment and plan: Patient has anemia of chronic disease hemoglobin is improving, 8.3 Patient has given 1 unit PRBC -on Aranesp -continue to monitor H&H (3) ESRD (end stage renal disease) on dialysis Current Visit: No Status: Chronic Assessment and plan: Patient has end-stage renal disease- dialysis on Saturday, Saturday, Saturday IJ catheter is in place and functional -Blood culture 03/07/2017 grew GPC -Blood culture 03/08/2017 preliminary showed no growth. 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 helper termite insulin use: with exterminator helper termite use Qualified Code(s): E11.42 - Type 2 diabetes mellitus with diabetic polyneuropathy; 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 Winn on 2016 (6) Morbid obesity Current Visit: No Status: Chronic (7) Hypertension Current Visit: No Status: Chronic Assessment and plan: SBP running in 118-152 -Continue home medications of nifedipine, losartan -lopressor and hydralazine Qualifiers: Hypertension type: essential hypertension Qualified Code(s): I10 - Essential (primary) hypertension (8) Tobacco abuse Current Visit: No Status: Chronic - Subjective Interval history: Patient is sitting up in bed watching TV she is alert and orientated in no acute distress denies fever, chills, chest pain, shortness of breath, abdominal pain, dysuria She reports her abdominal ulcer is healing well. - Constitutional Vitals: Temp Pulse Resp BP Pulse Ox 98.4 F 80 14 129/73 96 03/10/17 11:04 03/10/17 11:04 03/10/17 11:04 03/10/17 11:04 03/10/17 11:04 General appearance: Present: A&O X 3, answers questions appropriately Exam: Gen.: Vitals noted. No acute distress. AAOx3 HEENT: oropharynx clear, Normocephalic, atraumatic Cardiac: RRR, no murmur, +S1/S2 Pulmonary: CTA bilaterally, no wheezes, rales or rhonchi, equal chest expansion Abdomen: soft, nontender, Bowel sounds noted, no guarding Extremities: no BLE edema, nontender calf, no cyanosis or clubbing Neuro: A&Ox3, moves all extremities Psych: Appropriate mood and behavior Internal Medicine: Result - Labs CBC & Chem 7: 03/10/17 04:40 03/10/17 04:40 Labs: Short CBC 03/10/17 Range/Units 04:40 WBC 11.5 H (4.3-11.1) K/mcL Hgb 8.3 L (11.5-15.4) g/dL Hct 26.2 L (35.3-44.9) % Plt Count 203 (140-400) K/mcL Neutrophils # 8.3 (1.6-8.9) K/mcL [facility] 03/10/17 04:40 Sodium 138 Potassium 4.4 Chloride 105 Carbon Dioxide 23 BUN 45 H D Creatinine 5.84 H Glucose 141 H Calcium 8.8 - ABG Interpretation ABG results: PT/INR, D-dimer PT 14.0 Seconds (9.4-12.1) H 03/01/17 15:15 Consult Discharge Plan - Plan Referrals: Suresh Mendoza MD [Primary Care Provider] - 03/12/17 2:00 pm (web request sent on 03/05/17) <Elder Mai H - Last Filed: 03/10/17 14:06> Date of Encounter: 03/10/17 - Constitutional Vitals: Temp Pulse Resp BP Pulse Ox 98.4 F 80 18 129/73 96 03/10/17 11:04 03/10/17 11:04 03/10/17 11:33 03/10/17 11:04 03/10/17 11:33 Internal Medicine: Result - Labs CBC & Chem 7: 03/10/17 04:40 03/10/17 04:40 Labs: Short CBC 03/10/17 Range/Units 04:40 WBC 11.5 H (4.3-11.1) K/mcL Hgb 8.3 L (11.5-15.4) g/dL Hct 26.2 L (35.3-44.9) % Plt Count 203 (140-400) K/mcL Neutrophils # 8.3 (1.6-8.9) K/mcL BMP 03/10/17 04:40 Sodium 138 Potassium 4.4 Chloride 105 Carbon Dioxide 23 BUN 45 H D Creatinine 5.84 H Glucose 141 H Calcium 8.8 - ABG Interpretation ABG results: PT/INR, D-dimer PT 14.0 Seconds (9.4-12.1) H 03/01/17 15:15 - Attending Attestation Need for transesophageal echocardiogram reinforced. Patient still rejects these option. Persistent bacteremia with MSSA, consider possible acute endocarditis versus line infection Discontinued vancomycin IV Continue Daptomycin (ID recommending to continue treating as it would be MRSA ( Mec A gene +) Infectious diseases recommendations appreciated Increased hydralazine to 50 mg 3 times a day, refusing IV hydralazine as it gives her chest pain Continue dialyses I examined this patient and my medical decision-making was reviewed with the Resident Physician. I agree with the documented findings, disposition and treatment plan as described except to the extent set forth below.
[2017-03-10] MEDS: Budesonide/Formoterol 160/4.5 MDI IH SCH ×2 (11:30→20:22)
[2017-03-11 04:32] LABS: Basophils % 0.4 %; Eosinophils # 0.1 K/mcL (0.0-0.6); Eosinophils % 1.2 %; Hematocrit 24.8 % (35.3-44.9); Hemoglobin 7.9 g/dL (11.5-15.4); Immature Granulocytes % 1.5 % (0-4); Lymphocytes % 19.3 %; Mean Corpuscular HGB Conc 31.9 g/dL (31.6-35.5); Mean Corpuscular Hemoglobin 28.2 pg (28.0-33.3); Mean Corpuscular Volume 88.6 fL (83.0-100.0); Mean Platelet Volume 9.8 fL (9.4-12.4); Monocytes # 0.6 K/mcL (0.0-1.3); Monocytes % 5.8 %; Neutrophils # 7.4 K/mcL (1.6-8.9); Platelet Count 194 K/mcL (140-400); Red Cell Distribution Width 15.2 % (11.5-14.5); Segmented Neutrophils % 71.8 %
[2017-03-11 04:35] LABS: Calcium 8.9 mg/dL (8.6-10.8); Potassium 4.6 mEq/L (3.5-4.5)
[2017-03-11] MEDS: *HR* Heparin 5,000 UNIT/ML VIAL SQ SCH ×2 (05:35→17:14)
[2017-03-11] MEDS ORDERED: 0.9 % Sodium Chloride 250 ML IVC PRN (07:51)
[2017-03-11] MEDS: Budesonide/Formoterol 160/4.5 MDI IH SCH ×2 (07:53→22:41)
[2017-03-11] MEDS: Calcium Acetate 667 MG CAPSULE PO SCH ×3 (07:58→17:14)
[2017-03-11] MEDS: Multivit/Ca/Min/Fe/FA 1 TAB TABLET PO SCH (07:58)
[2017-03-11] MEDS: Silver Sulfadiazine 50 GM TUBE TP SCH (07:58)
[2017-03-11] MEDS: Iron Polysaccharide Complex 150 MG CAPSULE PO SCH (07:58)
[2017-03-11] MEDS: Insulin LISPRO 300 UNITS/3 ML VIAL SQ SCH ×4 (07:59→23:02)
[2017-03-11] MEDS ORDERED: 0.9 % Sodium Chloride 1,000 ML PRIME SCH (08:00)
[2017-03-11] MEDS ORDERED: 0.9 % Sodium Chloride 2,000 ML ONE (08:20)
[2017-03-11] MEDS ORDERED: *HR* Heparin 5,000 UNIT/ML VIAL ONE (08:20)
[2017-03-11] MEDS: Insulin DETEMIR 100 UNIT/ML X5UNITS SQ SCH ×2 (10:12→23:01)
--- NOTE | 2017-03-11 11:00 | Internal Med Progress Note ---
Date of Encounter: 03/11/17 Time of Encounter: 10:57 - Assessment and plan (1) Sepsis Current Visit: Yes Status: Resolved Assessment and plan: Current Visit: Yes Status: Resolved Assessment and plan: Sepsis secondary to MSSA Persistent bacteremia with MSSA, consider possible acute endocarditis versus line infection Origin of infection is most likely abdominal ulcer in panus vs non healing ulcer on foot. Perma cath was removed Echo TTE showed LVEF 55%, mild diastolic dysfunction, trivial pericardial effusion. Chest x-ray normal Blood cultures 03/03/2017 grew Staph aureus 2/2. However, lab results on computer state that she is PCR POSITIVE for MRSA. After calling lab, it seems that this is possibly MSSA. She did clinically improve with Cefepime and Linezolid. Abdomen ulcer ulcer in panus- grew staph aureus Wound culture- right ankle no pathogens present Received 4 days on Vancomycin -Blood cultures 03/07/2017 final GPC Denies shortness of breath and dysuria Patient has been advised on multiple occasions to get MARIO but has consistently refused -Blood cultures 03/09/2017 STILL POSSITIVE -Daptomycin day 4 -ordering new blood cultures -await ID recommendation on Abx to D/C on -Will wait on final result of blood culture so that new perma cath may be placed before D/C Qualifiers: Sepsis type: methicillin susceptible Staphylococcus aureus Qualified Code(s ): A41.01 - Sepsis due to Methicillin susceptible Staphylococcus aureus (2) Anemia in chronic illness Current Visit: No Status: Chronic Assessment and plan: Patient has anemia of chronic disease hemoglobin is improving, 8.3 Patient has given 1 unit PRBC -on Aranesp -continue to monitor H&H (3) ESRD (end stage renal disease) on dialysis Current Visit: No Status: Chronic Assessment and plan: Patient has end-stage renal disease- dialysis on Saturday, Saturday, Saturday IJ catheter is in place and functional -Dialysis today -Nephrology following, recommendations appreciated (4) Diabetes Current Visit: No Status: Chronic Assessment and plan: History of diabetes -Continue Levemir and sliding scale Qualifiers: Diabetes mellitus type: type 2 Diabetes mellitus complication status: with neurologic complications Diabetes mellitus complication detail: with polyneuropathy Diabetes mellitus usp insulin use: with usp use Qualified Code(s): E11.42 - Type 2 diabetes mellitus with diabetic polyneuropathy; 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 Winn on 2016 (6) Morbid obesity Current Visit: No Status: Chronic (7) Hypertension Current Visit: No Status: Chronic Assessment and plan: SBP running in 118-152 -Continue home medications of nifedipine, losartan -lopressor and hydralazine Qualifiers: Hypertension type: essential hypertension Qualified Code(s): I10 - Essential (primary) hypertension (8) Tobacco abuse Current Visit: No Status: Chronic Qualifiers: Sepsis type: methicillin susceptible Staphylococcus aureus Qualified Code(s ): A41.01 - Sepsis due to Methicillin susceptible Staphylococcus aureus - Subjective Interval history: Very frustrated about not being able to be discharged, denies any CP or SOB, no fever, no abdominal pain no diarrhea - Constitutional Vitals: Temp Pulse Resp BP Pulse Ox 98.4 F 86 17 159/80 97 03/11/17 07:46 03/11/17 07:46 03/11/17 07:46 03/11/17 07:46 03/11/17 07:46 General appearance: Present: A&O X 3, obese, answers questions appropriately - Head Head exam: Present: atraumatic, normocephalic - Eye Eye exam: Present: PERRL, conjuntiva pink, sclera anicteric Pupils: Present: PERRL - Neck Neck exam general surgery: Present: supple, trachea midline. Absent: lymphadenopathy - Respiratory Respiratory exam: Present: CTAB. Absent: accessory muscle use, rales, rhonchi, wheezes - Cardiovascular Cardiovascular exam: Present: RRR, +S1, +S2. Absent: diastolic murmur, gallop, rubs, systolic murmur - GI/Abdominal GI/Abdominal exam: Present: normal bowel sounds, soft, no peritoneal signs. Absent: distended, tenderness - Extremities Exam Extremities exam: Present: warm, radial pulses palpable and symmetrical. Absent : calf tenderness, cyanotic, pedal edema - Neurological Exam Neurological exam: Present: CN II-XII intact, oriented X3, no focal deficits. Absent: pronater drift, facial droop, speech deficit Additional comments: Temporary dialysis catheter in place - Skin Skin exam: Present: dry, intact Internal Medicine: Result - Labs CBC & Chem 7: 03/11/17 04:17 03/11/17 04:17 Labs: Short CBC 03/11/17 Range/Units 04:17 WBC 10.3 (4.3-11.1) K/mcL Hgb 7.9 L (11.5-15.4) g/dL Hct 24.8 L (35.3-44.9) % Plt Count 194 (140-400) K/mcL Neutrophils # 7.4 (1.6-8.9) K/mcL BMP 03/11/17 04:17 Sodium 138 Potassium 4.6 H Chloride 107 Carbon Dioxide 22 BUN 46 H Creatinine 6.01 H Glucose 137 H Calcium 8.9 - ABG Interpretation ABG results: PT/INR, D-dimer PT 14.0 Seconds (9.4-12.1) H 03/01/17 15:15 - Impressions Impressions Chest X-Ray 03/10/17 15:34 IMPRESSION: 1. New left internal jugular dual lumen central line terminates near the superior cavoatrial junction. No associated pneumothorax. 2. New airspace opacity in the lateral left lung base suspicious for pneumonia. 3. Suspicion for at least trace left pleural effusion. 4. Pulmonary vascular congestion and mild cardiomegaly. D/ / Kevin Moe MD / Kevin Moe MD Interpreting Provider: Kevin Moe MD Consult Discharge Plan - Plan Referrals: Suresh Mendoza MD [Primary Care Provider] - 03/12/17 2:00 pm (web request sent on 03/05/17)
--- NOTE | 2017-03-11 11:56 | Nephrology Progress Note ---
Date of Encounter: 03/11/17 Time of Encounter: 09:30 - Assessment and Plan (1) ESRD (end stage renal disease) on dialysis Current Visit: No Status: Chronic HD today. Still having intermittant + BCx. Suspect I.E. but could her poor dentition be a source of the bacteremia as well? She asked for a Do Not Disturb order and asked to not have vital signs checked overnight. Next HD is planned for Saturday I cannot recommend placement of another Permacath until the bacteremia is no longer showing positive blood cultures. If the Left IJ temp HD catheter remains functional, continue it until she is ready for a Permacath. (2) Gram-positive cocci bacteremia Current Visit: Yes Status: Acute Pt has refused MARIO. Could her poor dentition be contributing to the Bacteremia? (3) S/P dialysis catheter insertion Current Visit: Yes Status: Acute See above (4) Sepsis Current Visit: Yes Status: Resolved Appreciate primary and ID Qualifiers: Sepsis type: methicillin susceptible Staphylococcus aureus Qualified Code(s ): A41.01 - Sepsis due to Methicillin susceptible Staphylococcus aureus (5) Morbid obesity Current Visit: No Status: Chronic Counseled her on lifestyle modifications. (6) Anemia in chronic illness Current Visit: No Status: Chronic Goal Hgb in the setting of ESRD is 10-11. Recommend ongoing MARIBEL. (7) Hyponatremia Current Visit: No Status: Chronic Improved today. Several historical mild hyponatremic episodes that are most likely secondary to ESRD and hypervolemia. (8) Hyperkalemia Current Visit: No Status: Chronic Mild, recurrent, most likely secondary to ESRD and dietary indiscretion. Provide a renal diet. Subjective Principal diagnosis: ESRD Interval history: Pt was s/e. She did not affirm N/V, F/C, rigors and said that the discomfort was about the same from the left IJ temporary HD catheter. She last dialyzed on Saturday. She requested to have not vital sign checks overnight. Objective - Vital Signs Vital signs: Vital Signs Temp Pulse Resp BP Pulse Ox 03/11/17 10:54 98.6 F 88 17 173/93 97 03/11/17 07:46 98.4 F 86 17 159/80 97 03/11/17 04:35 98.8 F 85 18 156/80 97 03/10/17 23:22 98.1 F 91 18 147/77 96 03/10/17 20:22 18 97 10/22/17 19:45 98.3 F 92 18 166/76 97 03/10/17 15:18 98.8 F 85 18 145/79 97 Intake and Output 03/10/17 03/11/17 03/11/17 23:59 07:59 15:59 Other: Weight 107.104 kg Blood Glucose* 260 128 271 Patient Weight 03/11/17 23:59 Weight 107.104 kg - General Appearance General appearance: Present: well-developed, well-nourished, appears started age , obese, chronically ill EENT: Present: ATNC, PERRL, mucous membranes moist Additional Comments: Very poor dentition Neck: Present: supple Respiratory: Present: clear Cardiology: Present: edema (trace pedal b/l), normal S1, normal S2 Dialysis Vascular Access: Venous Catheter (Left IJ temp HD catheter without surrounding erythema or exudates. Tegaderm was C/D/I) Gastrointestinal: Present: normoactive bowel sounds, no tenderness Integumentary: Present: warm and dry Neurologic: Present: no focal deficit, no asterixis, alert and oriented x3 Musculoskeletal: Present: no clubbing Additional Comments: Uncooperative: she is not wanting vital signs and not wanting a thorough work up e.g. MARIO for the recurrent bacteremia. Angry mood and using some curse words. - Lab 03/11/17 04:17 03/11/17 04:17 Most recent lab results Calcium 8.9 mg/dL (8.6-10.8) 03/11/17 04:17 Phosphorus 3.4 mg/dL (2.3-4.7) 03/01/17 15:15 Magnesium 1.7 mg/dL (1.6-2.6) 03/04/17 04:36 Consult Discharge Plan - Plan Referrals: Suresh Mendoza MD [Primary Care Provider] - 03/12/17 2:00 pm (web request sent on 03/05/17)
--- NOTE | 2017-03-11 13:16 | Infectious Disease Progress No ---
Date of Encounter: 03/11/17 Time of Encounter: 13:14 - Assessment and Plan (1) Sepsis Current Visit: Yes Status: Resolved The patient had three SIRS criteria on admission. Likely secondary to bacteremia. Improved. The patient has been afebrile. Her WBC has normalized. Tachycardia has resolved. The patient has had multiple positive blood cultures as outlined below. Qualifiers: Sepsis type: methicillin susceptible Staphylococcus aureus Qualified Code(s ): A41.01 - Sepsis due to Methicillin susceptible Staphylococcus aureus (2) Gram-positive cocci bacteremia Current Visit: Yes Status: Acute Causative organism MSSA with one set of blood cultures positive for mecA gene. Source unclear: dialysis catheter (most likely) vs. abdominal wall wound vs ankle wound. Complicated due to persistently positive blood cultures. Peripheral blood culture drawn 03/01/17: + 1/1 sets for MSSA Perma-cath blood culture drawn 03/01/17: + 1/1 sets for MSSA. Perma-cath blood cultures drawn 03/03/17: + 2/2 for MSSA, but mecA gene isolated on PCR. Peripheral blood cultures drawn 03/04/17: + 1/2 for MSSA. Peripheral blood culture drawn 03/06/17: are NGTD 1/1 set. TDC blood cultures drawn 03/06/17: are positive 1/3 sets. Peripheral blood cultures drawn 03/07/17: + 2/2 sets. TDC Blood cultures drawn 03/07/17: NGTD 1/1 set. Peripheral blood cultures drawn 03/08/17: NGTD 2/2 sets. Peripheral blood culture drawn 03/09/17: NGTD 1/1 set. TDC blood culture drawn 03/09/17: + 1/1 set Additional blood cultures have been ordered (2 peripheral and 2 from the TDC) to be drawn today. The patient has no indwelling hardware or pacemakers. She did recently have a right chest perm-cath placed in January that had to re-placed shortly thereafter. She is unsure if she had any redness, tenderness, or drainage from the catheter site. Catheter removed 03/04/17. The patient had been on IV Vancomycin since 03/04/17. She was treated with linezolid for two days prior to that. Not sure what to make of the mecA gene that was noted on the PCR on 03/03/17 blood cultures. There may have been a CONS contaminant. Because the mecA gene was picked up on PCR, will err on the side of caution and treat as we would for MRSA. The patient has one major and one minor Modified Barrientos's Criteria. Called and spoke with familia who reports intermediate susceptibility to vancomycin (actual YANDY unavailable and has been sent out to reference lab for further testing). YANDY back and is 2. Continue Daptomycin 1000mg IV Q48H. Consider holding Zocor while on Daptomycin. TTE negative for valvular vegetations. Recommend a MARIO prior to discharge. The patient continues to refuse despite multiple conversations about how this could be contributing to her persistent bacteremia. Duration of treatment depends on the clinical picture. (3) Wound, open, abdominal wall, anterior Current Visit: Yes Status: Acute Appears superficial and does not appear infected. Wound culture positive for MSSA. Consult wound care for recommendations. Qualifiers: Encounter type: initial encounter Qualified Code(s): S31.109A - Unspecified open wound of abdominal wall, unspecified quadrant without penetration into peritoneal cavity, initial encounter (4) Ulcer of right ankle Current Visit: Yes Status: Acute Location: Right lateral ankle. Stage II. Clinically does not appear infected. Podiatry consulted who agrees that it does not appear infected. Wound culture positive for normal skin jacki. Wound care per podiatry's recommendations. Qualifiers: Non-pressure ulcer stage: with fat layer exposed Qualified Code(s): L97.312 - Non-pressure chronic ulcer of right ankle with fat layer exposed (5) Elevated troponin Current Visit: Yes Status: Chronic (6) History of end stage renal disease Current Visit: Yes Status: Acute Follows with [facility]. Nephrology consulted and following. Case discussed at length with Dr. Keane. (7) S/P dialysis catheter insertion Current Visit: Yes Status: Acute Originally placed 01/17/17 with re-placement 02/08/17. The patient is unsure if the site appeared infection when she came to the hospital. TDC removed 03/01/17. Catheter tip was not sent for culture. - Subjective Interval history: Patient seen and examined. Weekend notes reviewed. No acute events noted. States she is tired, but overall feels well. Denies fevers, chills, or rigors. Denies chest pain, shortness of breath, or cough. Complains of chronic pain " all over." Denies abdominal pain, nausea, vomiting, diarrhea, or urinary complaints. States appetite is good. Denies oral thrush or skin lesions. Continues to refuse MARIO. Infect Dis PN-Objective Data - Labs CBC & Chem 7: 03/11/17 04:17 03/11/17 04:17 Labs: Laboratory Results - last 24 hr 03/09/17 03/10/17 03/10/17 20:04 07:28 11:56 WBC RBC Hgb Hct MCV MCH MCHC RDW Plt Count MPV Immature Gran % Seg Neutrophils % Lymphocytes % Monocytes % Eosinophils % Basophils % Neutrophils # Lymphocytes # Monocytes # Eosinophils # Basophils # Sodium Potassium Chloride Carbon Dioxide BUN Creatinine Est GFR ( Amer) Est GFR (Non-Af Amer) BUN/Creatinine Ratio Glucose POC Glucose 234 H 150 H 228 H Calculated Osmolality Calcium 03/10/17 03/10/17 03/11/17 16:32 19:53 04:17 WBC 10.3 RBC 2.80 L Hgb 7.9 L Hct 24.8 L MCV 88.6 MCH 28.2 MCHC 31.9 RDW 15.2 H Plt Count 194 MPV 9.8 Immature Gran % 1.5 Seg Neutrophils % 71.8 Lymphocytes % 19.3 Monocytes % 5.8 Eosinophils % 1.2 Basophils % 0.4 Neutrophils # 7.4 Lymphocytes # 2.0 Monocytes # 0.6 Eosinophils # 0.1 Basophils # 0.0 Sodium Potassium Chloride Carbon Dioxide BUN Creatinine Est GFR ( Amer) Est GFR (Non-Af Amer) BUN/Creatinine Ratio Glucose POC Glucose 249 H 260 H Calculated Osmolality Calcium 03/11/17 04:17 WBC RBC Hgb Hct MCV MCH MCHC RDW Plt Count MPV Immature Gran % Seg Neutrophils % Lymphocytes % Monocytes % Eosinophils % Basophils % Neutrophils # Lymphocytes # Monocytes # Eosinophils # Basophils # Sodium 138 Potassium 4.6 H Chloride 107 Carbon Dioxide 22 BUN 46 H Creatinine 6.01 H Est GFR ( Amer) 9 L Est GFR (Non-Af Amer) 7 L BUN/Creatinine Ratio 8 Glucose 137 H POC Glucose Calculated Osmolality 300 Calcium 8.9 Cultures: Cultures 03/09/17 14:40 Blood Culture - Final Central Venous Catheter Staphylococcus aureus 03/09/17 14:11 Blood Culture - Preliminary Peripheral Venipuncture No growth. 03/07/17 13:41 Blood Culture - Final Peripheral Venipuncture Staphylococcus aureus 03/04/17 14:50 Blood Culture - Final Peripheral Venipuncture No growth. 03/08/17 15:28 Blood Culture - Preliminary Peripheral Venipuncture No growth. 03/08/17 15:27 Blood Culture - Preliminary Peripheral Venipuncture No growth. 03/07/17 13:41 Blood Culture - Final Peripheral Venipuncture Staphylococcus aureus 03/02/17 17:12 Wound Culture - Final Abdomen Staphylococcus aureus 03/03/17 10:05 Blood Culture - Final Central Venous Catheter Staphylococcus aureus 03/07/17 12:24 Blood Culture - Preliminary Arterial Line No growth. 03/06/17 15:50 Blood Culture - Preliminary Peripheral Venipuncture No growth. 03/06/17 16:00 Blood Culture - Preliminary Central Venous Catheter No growth. 03/06/17 16:00 Blood Culture - Preliminary Central Venous Catheter No growth. 03/06/17 01:00 Blood Culture - Final Central Venous Catheter Staphylococcus aureus 03/04/17 14:50 Blood Culture - Final Peripheral Venipuncture Staphylococcus aureus 03/03/17 09:55 Blood Culture - Final Central Venous Catheter Staphylococcus aureus 03/02/17 17:11 Wound Culture - Final Right Ankle Normal skin jacki. No apparent pathogens isolated. 03/02/17 05:15 Influenza Types A,B Antigen (YANDY) - Final Nasopharyngeal Serology 03/06/17 03/03/17 Range/Units 01:00 09:55 A. baumannii (PCR) Not Detected Not Detected (Not Detect) Megan albicans (PCR) Not Detected Not Detected (Not Detect) C. glabrata (PCR) Not Detected Not Detected (Not Detect) C. krusei (PCR) Not Detected Not Detected (Not Detect) C. parapsilosis (PCR) Not Detected Not Detected (Not Detect) C. tropicalis (PCR) Not Detected Not Detected (Not Detect) Enterobacteriac sp PCR Not Detected Not Detected (Not Detect) E. cloacae complex PCR Not Detected Not Detected (Not Detect) Enterococcus sp PCR Not Detected Not Detected (Not Detect) E. coli (PCR) Not Detected Not Detected (Not Detect) H. influenzae (PCR) Not Detected Not Detected (Not Detect) Klebsiella oxytoca PCR Not Detected Not Detected (Not Detect) Klebsiella pneumoniae Not Detected Not Detected (Not Detect) List. monocytogenes PCR Not Detected Not Detected (Not Detect) N. meningitidis (PCR) Not Detected Not Detected (Not Detect) Proteus species (PCR) Not Detected Not Detected (Not Detect) Serratia marcescens PCR Not Detected Not Detected (Not Detect) Staphylococcus sp PCR DETECTED A DETECTED A (Not Detect) Staph aureus (PCR) DETECTED A DETECTED A (Not Detect) mecA-Methicil Res Gene Not Detected DETECTED A (Not Detect) Streptococcus sp PCR Not Detected Not Detected (Not Detect) Group A Strep DNA Not Detected Not Detected (Not Detect) Group B Strep (PCR) Not Detected Not Detected (Not Detect) Strep pneumoniae (PCR) Not Detected Not Detected (Not Detect) P. aeruginosa (PCR) Not Detected Not Detected (Not Detect) Jonh/B-Vanco Res Genes N/A N/A (Not Detect) KPC (blaKPC) Detect PCR N/A N/A (Not Detect) - Impressions Impressions Chest X-Ray 03/10/17 15:34 IMPRESSION: 1. New left internal jugular dual lumen central line terminates near the superior cavoatrial junction. No associated pneumothorax. 2. New airspace opacity in the lateral left lung base suspicious for pneumonia. 3. Suspicion for at least trace left pleural effusion. 4. Pulmonary vascular congestion and mild cardiomegaly. D/ / Kevin Moe MD / Kevin Moe MD Interpreting Provider: Kevin Moe MD Exam - Constitutional Vitals: Temp Pulse Resp BP Pulse Ox 98.6 F 88 17 173/93 97 03/11/17 10:54 03/11/17 10:54 03/11/17 10:54 03/11/17 10:54 03/11/17 10:54 General appearance: cooperative, morbidly obese, no acute distress - Head Head exam: Present: atraumatic, normal inspection, normocephalic - Eye Eye exam: Present: EOMI, normal appearance, PERRL Pupils: Present: normal accommodation Additional comments: No subconjunctival hemorrhage noted. - ENT ENT exam: Present: mucous membranes moist - Neck Neck exam: Present: normal inspection Additional comments: TDC noted to the left neck with transparent dressing C/D/I. - Respiratory Respiratory exam: Present: CTAB. Absent: rales, respiratory distress, rhonchi, wheezes - Cardiovascular Cardiovascular exam: Present: RRR, +S1, +S2 - GI/Abdominal GI/Abdominal exam: Present: distended (obese), normal bowel sounds, soft. Absent: tenderness - Extremities Exam Extremities exam: Present: normal inspection. Absent: joint swelling, pedal edema, tenderness Additional comments: Right foot dressing C/D/I. - Neurological Exam Neurological exam: Present: alert, oriented X3, no focal deficits - Psychiatric Psychiatric exam: Present: normal affect, normal mood - Skin Skin exam: Present: dry, intact, normal color, warm Additional comments: No endocarditis stigmata noted. Consult Discharge Plan - Plan Referrals: Suresh Mendoza MD [Primary Care Provider] - 03/12/17 2:00 pm (web request sent on 03/05/17)
[2017-03-11] MEDS: hydrALAZINE 25 MG TABLET PO SCH ×2 (14:48→17:14)
[2017-03-11] MEDS: Furosemide 40 MG TABLET PO SCH ×2 (14:49→17:14)
[2017-03-11] MEDS: NIFEdipine XL (24 HR) 60 MG TAB.ER.24 PO SCH (14:50)
[2017-03-11] MEDS: DAPTOmycin 1,000 MG in 0.9 % Sodium Chloride 100 ML IVPB SCH (17:20)
[2017-03-12] MEDS: hydrALAZINE 25 MG TABLET PO SCH ×4 (02:02→23:44)
[2017-03-12] MEDS: Acetaminophen 325 MG TABLET PO PRN (07:17)
[2017-03-12] MEDS: *HR* Heparin 5,000 UNIT/ML VIAL SQ SCH ×2 (07:18→16:30)
[2017-03-12] MEDS: Budesonide/Formoterol 160/4.5 MDI IH SCH ×2 (07:49→20:30)
[2017-03-12] MEDS: Insulin LISPRO 300 UNITS/3 ML VIAL SQ SCH ×4 (07:50→20:58)
[2017-03-12] MEDS: Calcium Acetate 667 MG CAPSULE PO SCH ×4 (07:51→16:30)
[2017-03-12] MEDS: NIFEdipine XL (24 HR) 60 MG TAB.ER.24 PO SCH (07:51)
[2017-03-12] MEDS: Multivit/Ca/Min/Fe/FA 1 TAB TABLET PO SCH (07:51)
[2017-03-12] MEDS: Furosemide 40 MG TABLET PO SCH ×2 (07:51→16:29)
[2017-03-12] MEDS: Iron Polysaccharide Complex 150 MG CAPSULE PO SCH (07:52)
[2017-03-12] MEDS: Insulin DETEMIR 100 UNIT/ML X5UNITS SQ SCH ×2 (07:56→20:58)
[2017-03-12] MEDS: Silver Sulfadiazine 50 GM TUBE TP SCH (08:15)
--- NOTE | 2017-03-12 08:30 | Nephrology Progress Note ---
Date of Encounter: 03/12/17 Time of Encounter: 08:27 - Assessment and Plan (1) ESRD (end stage renal disease) on dialysis Current Visit: No Status: Chronic Plan for HD tomorrow Continues to have intermittant + blood cultures Cannot place a new permacath until after 5 days of negative blood cultures Continue renal diet Avoid nephrotoxins if possible (2) Gram-positive cocci bacteremia Current Visit: Yes Status: Acute Patient refuses cardiac work-up/echo per primary team (3) Sepsis Current Visit: Yes Status: Resolved per primary team Qualifiers: Sepsis type: methicillin susceptible Staphylococcus aureus Qualified Code(s ): A41.01 - Sepsis due to Methicillin susceptible Staphylococcus aureus (4) Anemia Current Visit: No Status: Acute Hgb 7.9 Goal 10-11 Continue MARIBEL Transfuse per parameters Qualifiers: Anemia type: due to chronic kidney disease Chronic kidney disease stage: on chronic dialysis Qualified Code(s): N18.6 - End stage renal disease; D63.1 - Anemia in chronic kidney disease; D63.1 - Anemia in chronic kidney disease; Z99.2 - Dependence on renal dialysis; Z99.2 - Dependence on renal dialysis; Z99.2 - Dependence on renal dialysis; Z99.2 - Dependence on renal dialysis Subjective Principal diagnosis: ESRD Interval history: Patient seen and examined. Sitting up in bed eating breakfast. Objective - Vital Signs Vital signs: Vital Signs Temp Pulse Resp BP Pulse Ox 03/12/17 07:51 16 98 03/12/17 06:44 98.5 F 83 17 129/77 96 03/12/17 03:10 98.1 F 86 18 131/78 96 03/12/17 00:34 98.7 F 92 18 145/70 96 03/11/17 22:43 18 96 03/11/17 18:24 98.8 F 94 18 148/77 95 03/11/17 16:20 98.5 F 98 15 173/89 98 03/11/17 15:25 99.1 F 20 199/97 03/11/17 15:15 180/76 03/11/17 15:00 187/76 03/11/17 14:30 180/83 03/11/17 14:00 185/88 03/11/17 13:30 147/81 03/11/17 13:00 169/89 03/11/17 12:45 183/80 03/11/17 12:30 174/84 03/11/17 12:15 173/78 03/11/17 12:00 198/89 03/11/17 11:45 98.9 F 18 197/83 03/11/17 10:54 98.6 F 88 17 173/93 97 Intake and Output 03/11/17 03/12/17 03/12/17 23:59 07:59 15:59 Intake Total 100 / 100 Balance 100 / 100 Intake: IV Fluids 100 / 100 Cubicin 1,000 MG In 0.9 % 100 / 100 Sodium Chloride 100 ML @ 200 mls/hr IVPB Q48H [facility] Rx#: [id number] Other: Meal Dinner Percent of Meal Consumed 100% Weight 104.417 kg Blood Glucose* 254 183 Patient Weight 03/12/17 23:59 Weight 104.417 kg - General Appearance General appearance: Present: obese EENT: Present: ATNC, mucous membranes moist, hearing intact, vision intact Neck: Present: supple Respiratory: Present: clear Cardiology: Present: edema (mild BLL edema), normal S1, normal S2 Dialysis Vascular Access: Venous Catheter Gastrointestinal: Present: no tenderness, no guarding, obese Integumentary: Present: warm and dry Neurologic: Present: alert and oriented x3 Psychiatric: Present: cooperative - Lab 03/11/17 04:17 03/11/17 04:17 Most recent lab results Calcium 8.9 mg/dL (8.6-10.8) 03/11/17 04:17 Phosphorus 3.4 mg/dL (2.3-4.7) 03/01/17 15:15 Magnesium 1.7 mg/dL (1.6-2.6) 03/04/17 04:36 Consult Discharge Plan - Plan Referrals: Suresh Mendoza MD [Primary Care Provider] - 03/12/17 2:00 pm (web request sent on 03/05/17)
--- NOTE | 2017-03-12 09:40 | Infectious Disease Progress No ---
Date of Encounter: 03/12/17 Time of Encounter: 09:38 - Assessment and Plan (1) Sepsis Current Visit: Yes Status: Resolved The patient had three SIRS criteria on admission. Likely secondary to bacteremia. Resolved. The patient has been afebrile. Her WBC has normalized. Tachycardia has resolved. The patient has had multiple positive blood cultures as outlined below. Qualifiers: Sepsis type: methicillin susceptible Staphylococcus aureus Qualified Code(s ): A41.01 - Sepsis due to Methicillin susceptible Staphylococcus aureus (2) Gram-positive cocci bacteremia Current Visit: Yes Status: Acute Causative organism MSSA with one set of blood cultures positive for mecA gene. Source unclear: dialysis catheter (most likely) vs. abdominal wall wound vs ankle wound. Complicated due to persistently positive blood cultures. Peripheral blood culture drawn 03/01/17: + 1/1 sets for MSSA Perma-cath blood culture drawn 03/01/17: + 1/1 sets for MSSA. Perma-cath blood cultures drawn 03/03/17: + 2/2 for MSSA, but mecA gene isolated on PCR. Peripheral blood cultures drawn 03/04/17: + 1/2 for MSSA. Peripheral blood culture drawn 03/06/17: are NGTD 1/1 set. TDC blood cultures drawn 03/06/17: are positive 1/3 sets. Peripheral blood cultures drawn 03/07/17: + 2/2 sets. TDC Blood cultures drawn 03/07/17: NGTD 1/1 set. Peripheral blood cultures drawn 03/08/17: NGTD 2/2 sets. Peripheral blood culture drawn 03/09/17: NGTD 1/1 set. TDC blood culture drawn 03/09/17: + 1/1 set Additional blood cultures drawn 03/10/17 and 03/11/17 are pending. The patient has no indwelling hardware or pacemakers. She did recently have a right chest perm-cath placed in January that had to re-placed shortly thereafter. She is unsure if she had any redness, tenderness, or drainage from the catheter site. Catheter removed 03/04/17, but new IJ placed the same day with several exchanges that occurred while the patient was still bacteremic. Not sure if the new catheter is seeded. Discussed with Dr. Aly. States he will make arrangements to have current dialysis catheter removed after dialysis tomorrow and give the patient 48 hours without a line. The patient had been on IV Vancomycin since 03/04/17. She was treated with linezolid for two days prior to that. Not sure what to make of the mecA gene that was noted on the PCR on 03/03/17 blood cultures. There may have been a CONS contaminant. Because the mecA gene was picked up on PCR, will err on the side of caution and treat as we would for MRSA. The patient has one major and one minor Modified Barrientos's Criteria. Vanc YANDY is 2. Continue Daptomycin 1000mg IV Q48H. Consider holding Zocor while on Daptomycin. TTE negative for valvular vegetations. Recommend a MARIO prior to discharge. The patient continues to refuse despite multiple conversations about how this could be contributing to her persistent bacteremia. Duration of treatment depends on the clinical picture. (3) Wound, open, abdominal wall, anterior Current Visit: Yes Status: Acute Appears superficial and does not appear infected. Wound culture positive for MSSA. Consult wound care for recommendations. Qualifiers: Encounter type: initial encounter Qualified Code(s): S31.109A - Unspecified open wound of abdominal wall, unspecified quadrant without penetration into peritoneal cavity, initial encounter (4) Ulcer of right ankle Current Visit: Yes Status: Acute Location: Right lateral ankle. Stage II. Clinically does not appear infected. Podiatry consulted who agrees that it does not appear infected. Wound culture positive for normal skin jacki. Wound care per podiatry's recommendations. Qualifiers: Non-pressure ulcer stage: with fat layer exposed Qualified Code(s): L97.312 - Non-pressure chronic ulcer of right ankle with fat layer exposed (5) Elevated troponin Current Visit: Yes Status: Chronic (6) History of end stage renal disease Current Visit: Yes Status: Acute Follows with [facility]. Nephrology consulted and following. (7) S/P dialysis catheter insertion Current Visit: Yes Status: Acute Originally placed 01/17/17 with re-placement 02/08/17. The patient is unsure if the site appeared infection when she came to the hospital. TDC removed 03/01/17. Catheter tip was not sent for culture. - Subjective Interval history: Patient seen and examined. No acute events noted overnight. States she is tired , but overall feels well. Denies fevers, chills, or rigors. Denies chest pain, shortness of breath, or cough. Denies pain at this time. Denies abdominal pain, nausea, vomiting, diarrhea, or urinary complaints. States appetite is good. Denies oral thrush or skin lesions. Continues to refuse MARIO. Infect Dis PN-Objective Data - Labs CBC & Chem 7: 03/11/17 04:17 03/11/17 04:17 Labs: Laboratory Results - last 24 hr 03/10/17 03/11/17 03/11/17 19:53 07:21 10:55 POC Glucose 260 H 128 H 271 H 03/11/17 03/11/17 16:27 19:55 POC Glucose 122 H 254 H Cultures: Cultures 03/09/17 14:40 Blood Culture - Final Central Venous Catheter Staphylococcus aureus 03/09/17 14:11 Blood Culture - Preliminary Peripheral Venipuncture No growth. 03/07/17 13:41 Blood Culture - Final Peripheral Venipuncture Staphylococcus aureus 03/04/17 14:50 Blood Culture - Final Peripheral Venipuncture No growth. 03/08/17 15:28 Blood Culture - Preliminary Peripheral Venipuncture No growth. 03/08/17 15:27 Blood Culture - Preliminary Peripheral Venipuncture No growth. 03/07/17 13:41 Blood Culture - Final Peripheral Venipuncture Staphylococcus aureus 03/02/17 17:12 Wound Culture - Final Abdomen Staphylococcus aureus 03/03/17 10:05 Blood Culture - Final Central Venous Catheter Staphylococcus aureus 03/07/17 12:24 Blood Culture - Preliminary Arterial Line No growth. 03/06/17 15:50 Blood Culture - Preliminary Peripheral Venipuncture No growth. 03/06/17 16:00 Blood Culture - Preliminary Central Venous Catheter No growth. 03/06/17 16:00 Blood Culture - Preliminary Central Venous Catheter No growth. 03/06/17 01:00 Blood Culture - Final Central Venous Catheter Staphylococcus aureus 03/04/17 14:50 Blood Culture - Final Peripheral Venipuncture Staphylococcus aureus 03/03/17 09:55 Blood Culture - Final Central Venous Catheter Staphylococcus aureus 03/02/17 17:11 Wound Culture - Final Right Ankle Normal skin jacki. No apparent pathogens isolated. 03/02/17 05:15 Influenza Types A,B Antigen (YANDY) - Final Nasopharyngeal Serology 03/06/17 03/03/17 Range/Units 01:00 09:55 A. baumannii (PCR) Not Detected Not Detected (Not Detect) Megan albicans (PCR) Not Detected Not Detected (Not Detect) C. glabrata (PCR) Not Detected Not Detected (Not Detect) C. krusei (PCR) Not Detected Not Detected (Not Detect) C. parapsilosis (PCR) Not Detected Not Detected (Not Detect) C. tropicalis (PCR) Not Detected Not Detected (Not Detect) Enterobacteriac sp PCR Not Detected Not Detected (Not Detect) E. cloacae complex PCR Not Detected Not Detected (Not Detect) Enterococcus sp PCR Not Detected Not Detected (Not Detect) E. coli (PCR) Not Detected Not Detected (Not Detect) H. influenzae (PCR) Not Detected Not Detected (Not Detect) Klebsiella oxytoca PCR Not Detected Not Detected (Not Detect) Klebsiella pneumoniae Not Detected Not Detected (Not Detect) List. monocytogenes PCR Not Detected Not Detected (Not Detect) N. meningitidis (PCR) Not Detected Not Detected (Not Detect) Proteus species (PCR) Not Detected Not Detected (Not Detect) Serratia marcescens PCR Not Detected Not Detected (Not Detect) Staphylococcus sp PCR DETECTED A DETECTED A (Not Detect) Staph aureus (PCR) DETECTED A DETECTED A (Not Detect) mecA-Methicil Res Gene Not Detected DETECTED A (Not Detect) Streptococcus sp PCR Not Detected Not Detected (Not Detect) Group A Strep DNA Not Detected Not Detected (Not Detect) Group B Strep (PCR) Not Detected Not Detected (Not Detect) Strep pneumoniae (PCR) Not Detected Not Detected (Not Detect) P. aeruginosa (PCR) Not Detected Not Detected (Not Detect) Jonh/B-Vanco Res Genes N/A N/A (Not Detect) KPC (blaKPC) Detect PCR N/A N/A (Not Detect) Exam - Constitutional Vitals: Temp Pulse Resp BP Pulse Ox 98.5 F 83 16 129/77 98 03/12/17 06:44 03/12/17 06:44 03/12/17 07:51 03/12/17 06:44 03/12/17 07:51 General appearance: cooperative, morbidly obese, no acute distress - Head Head exam: Present: atraumatic, normal inspection, normocephalic - Eye Eye exam: Present: EOMI, normal appearance, PERRL Pupils: Present: normal accommodation Additional comments: No subconjunctival hemorrhage noted. - ENT ENT exam: Present: mucous membranes moist - Neck Neck exam: Present: normal inspection - Respiratory Respiratory exam: Present: CTAB. Absent: rales, respiratory distress, rhonchi, wheezes - Cardiovascular Cardiovascular exam: Present: RRR, +S1, +S2 - GI/Abdominal GI/Abdominal exam: Present: normal bowel sounds, soft. Absent: distended, tenderness Additional comments: Stage II ulcer noted to the abdominal fold PATENTED [employer] without redness, warmth, erythema or drainage. - Extremities Exam Extremities exam: Present: normal inspection. Absent: joint swelling, pedal edema, tenderness Additional comments: Stage II noted over the right lateral malleolus with scant yellow drainage on the old dressing. No redness, warmth, or erythema noted. Non-tender. - Neurological Exam Neurological exam: Present: alert, oriented X3, no focal deficits - Psychiatric Psychiatric exam: Present: normal affect, normal mood - Skin Skin exam: Present: dry, intact, normal color, warm Additional comments: No endocarditis stigmata noted. Consult Discharge Plan - Plan Referrals: Suresh Mendoza MD [Primary Care Provider] - 03/19/17 1:15 pm (web request sent on 03/05/17)
[2017-03-12 14:13] LABS: Basophils % 0.4 %; Eosinophils # 0.1 K/mcL (0.0-0.6); Hematocrit 25.6 % (35.3-44.9); Hemoglobin 8.2 g/dL (11.5-15.4); Lymphocytes # 1.6 K/mcL (0.6-4.6); Lymphocytes % 15.7 %; Mean Corpuscular Hemoglobin 28.2 pg (28.0-33.3); Mean Platelet Volume 9.8 fL (9.4-12.4); Monocytes # 0.6 K/mcL (0.0-1.3); Monocytes % 5.7 %; Neutrophils # 7.8 K/mcL (1.6-8.9); Platelet Count 190 K/mcL (140-400); Red Blood Count 2.91 M/mcL (3.82-4.97); Red Cell Distribution Width 15.5 % (11.5-14.5); Segmented Neutrophils % 76.2 %
[2017-03-12 14:41] LABS: Calcium 8.6 mg/dL (8.6-10.8); Potassium 4.4 mEq/L (3.5-4.5)
--- NOTE | 2017-03-12 18:30 | Internal Med Progress Note ---
Date of Encounter: 03/12/17 Time of Encounter: 11:00 - Assessment and plan (1) Gram-positive cocci bacteremia Current Visit: Yes Status: Acute Assessment and plan: -Source unknown but workup and complete as patient declines MARIO -We will continue daptomycin. (2) ESRD (end stage renal disease) on dialysis Current Visit: No Status: Chronic Assessment and plan: Patient has end-stage renal disease- dialysis on Saturday, Saturday, Saturday IJ catheter is in place and functional -Blood culture 03/07/2017 grew GPC -Blood culture 03/08/2017 preliminary showed no growth. HD port replacement when final report of blood cultures negative -Continue dialysis per nephrology (3) Diabetes Current Visit: No Status: Chronic Assessment and plan: History of diabetes -Continue Levemir and sliding scale Qualifiers: Diabetes mellitus type: type 2 Diabetes mellitus complication status: with neurologic complications Diabetes mellitus complication detail: with polyneuropathy Diabetes mellitus watermelon inspector insulin use: with watermelon inspector use Qualified Code(s): E11.42 - Type 2 diabetes mellitus with diabetic polyneuropathy; Z79.4 - terminal carman (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; Z79.4 - care home ( 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; Z79.4 - terminal carman (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; Z79.4 - terminal carman (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 (4) Hypertension Current Visit: No Status: Chronic Assessment and plan: -Continue home medications of nifedipine, losartan -lopressor and hydralazine Qualifiers: Hypertension type: essential hypertension Qualified Code(s): I10 - Essential (primary) hypertension (5) DVT prophylaxis Current Visit: No Status: Acute Assessment and plan: Heparin subcutaneous - Subjective Interval history: No acute events overnight. - Constitutional Vitals: Temp Pulse Resp BP Pulse Ox 98.0 F 94 17 152/79 98 03/12/17 15:58 03/12/17 15:58 03/12/17 15:58 03/12/17 15:58 03/12/17 15:58 General appearance: Present: A&O X 3, obese, answers questions appropriately - Respiratory Respiratory exam: Present: CTAB. Absent: accessory muscle use, rales, rhonchi, wheezes - Cardiovascular Cardiovascular exam: Present: RRR, +S1, +S2. Absent: diastolic murmur, gallop, rubs, systolic murmur Internal Medicine: Result - Labs CBC & Chem 7: 03/12/17 13:58 03/12/17 13:58 Labs: Short CBC 03/12/17 Range/Units 13:58 WBC 10.2 (4.3-11.1) K/mcL Hgb 8.2 L (11.5-15.4) g/dL Hct 25.6 L (35.3-44.9) % Plt Count 190 (140-400) K/mcL Neutrophils # 7.8 (1.6-8.9) K/mcL BMP 03/12/17 13:58 Sodium 139 Potassium 4.4 Chloride 105 Carbon Dioxide 25 BUN 33 H D Creatinine 4.87 H Glucose 261 H Calcium 8.6 - ABG Interpretation ABG results: PT/INR, D-dimer PT 14.0 Seconds (9.4-12.1) H 03/01/17 15:15 Consult Discharge Plan - Plan Referrals: Suresh Mendoza MD [Primary Care Provider] - 03/19/17 1:15 pm (web request sent on 03/05/17)
[2017-03-13 04:11] LABS: Basophils % 0.3 %; Eosinophils # 0.1 K/mcL (0.0-0.6); Eosinophils % 1.3 %; Hematocrit 22.6 % (35.3-44.9); Hemoglobin 7.1 g/dL (11.5-15.4); Immature Granulocytes % 0.5 % (0-4); Lymphocytes # 1.8 K/mcL (0.6-4.6); Lymphocytes % 18.4 %; Mean Corpuscular HGB Conc 31.4 g/dL (31.6-35.5); Mean Corpuscular Hemoglobin 27.6 pg (28.0-33.3); Mean Corpuscular Volume 87.9 fL (83.0-100.0); Mean Platelet Volume 9.9 fL (9.4-12.4); Monocytes # 0.6 K/mcL (0.0-1.3); Monocytes % 6.2 %; Platelet Count 169 K/mcL (140-400); Red Blood Count 2.57 M/mcL (3.82-4.97); Red Cell Distribution Width 15.5 % (11.5-14.5); Segmented Neutrophils % 73.3 %
[2017-03-13 04:24] LABS: Calcium 8.3 mg/dL (8.6-10.8); Potassium 4.3 mEq/L (3.5-4.5)
[2017-03-13] MEDS: *HR* Heparin 5,000 UNIT/ML VIAL SQ SCH ×2 (05:32→17:00)
[2017-03-13] MEDS: Budesonide/Formoterol 160/4.5 MDI IH SCH ×2 (07:53→20:32)
[2017-03-13] MEDS ORDERED: *HR* Heparin 10,000 UNIT/10 ML VIAL IV PRN (08:14)
[2017-03-13] MEDS ORDERED: 0.9 % Sodium Chloride 250 ML IVC PRN (08:14)
[2017-03-13] MEDS: Multivit/Ca/Min/Fe/FA 1 TAB TABLET PO SCH (08:36)
[2017-03-13] MEDS: Iron Polysaccharide Complex 150 MG CAPSULE PO SCH (08:36)
[2017-03-13] MEDS: Insulin DETEMIR 100 UNIT/ML X5UNITS SQ SCH ×2 (08:36→21:13)
[2017-03-13] MEDS: Calcium Acetate 667 MG CAPSULE PO SCH ×3 (08:37→17:00)
[2017-03-13] MEDS: hydrALAZINE 25 MG TABLET PO SCH ×3 (08:38→23:29)
[2017-03-13] MEDS: Silver Sulfadiazine 50 GM TUBE TP SCH (08:38)
[2017-03-13] MEDS: Insulin LISPRO 300 UNITS/3 ML VIAL SQ SCH ×4 (08:38→21:13)
--- NOTE | 2017-03-13 10:55 | Nephrology Progress Note ---
Date of Encounter: 03/13/17 Time of Encounter: 10:00 - Assessment and Plan (1) ESRD (end stage renal disease) on dialysis Current Visit: No Status: Chronic HD today. Line holiday after HD today. Discussed with ID and floor RN. Appreciate primary team and ID. (2) Gram-positive cocci bacteremia Current Visit: Yes Status: Acute Pt has refused MARIO. Could her poor dentition be contributing to the Bacteremia? (3) S/P dialysis catheter insertion Current Visit: Yes Status: Acute See above (4) Sepsis Current Visit: Yes Status: Resolved Appreciate primary and ID Qualifiers: Sepsis type: methicillin susceptible Staphylococcus aureus Qualified Code(s ): A41.01 - Sepsis due to Methicillin susceptible Staphylococcus aureus (5) Morbid obesity Current Visit: No Status: Chronic Counseled her on lifestyle modifications. Greater than 50% of this encounter involved counseling. (6) Hyperkalemia Current Visit: No Status: Chronic Mild, recurrent, most likely secondary to ESRD and dietary indiscretion. Provide a renal diet. Subjective Principal diagnosis: ESRD Interval history: Pt was s/e. She did not affirm N/V, F/C, rigors and said that the discomfort was about the same from the left IJ temporary HD catheter. She had no new major complaints. Objective - Vital Signs Vital signs: Vital Signs Temp Pulse Resp BP Pulse Ox 03/13/17 10:25 166/79 03/13/17 09:55 182/79 03/13/17 09:25 182/79 03/13/17 08:55 97.8 F 15 201/94 03/13/17 08:04 98.8 F 94 16 128/78 97 03/13/17 07:54 16 97 03/12/17 23:55 98.3 F 94 16 144/78 97 03/12/17 20:31 18 99 03/12/17 19:10 99.3 F 96 16 144/80 97 03/12/17 15:58 98.0 F 94 17 152/79 98 03/12/17 11:07 98.1 F 97 17 159/81 98 Intake and Output 03/12/17 03/13/17 03/13/17 23:59 07:59 15:59 Intake Total 420 / 420 60 / 60 600 / 600 Output Total 450 / 450 0 / 0 Balance -30 / -30 60 / 60 600 / 600 Intake: Oral 420 / 420 60 / 60 0 / 0 Intake, Rinseback and Flushes 600 / 600 Output: Urine 450 / 450 0 / 0 Other: Meal Dinner Percent of Meal Consumed 100% Blood Glucose* 147 151 Hemodialysis Net Fluid Removed 1453 (mL) - General Appearance Exam: General appearance: Present: well-developed, well-nourished, appears started age , obese, chronically ill EENT: Present: ATNC, PERRL, mucous membranes moist Additional Comments: Very poor dentition Neck: Present: supple Respiratory: Present: clear Cardiology: Present: edema (trace pedal b/l), normal S1, normal S2 Dialysis Vascular Access: Venous Catheter (Left IJ temp HD catheter without surrounding erythema or exudates. Tegaderm was C/D/I) Gastrointestinal: Present: normoactive bowel sounds, no tenderness Integumentary: Present: warm and dry Neurologic: Present: no focal deficit, no asterixis, alert and oriented x3 Musculoskeletal: Present: no clubbing Additional Comments: cooperative today with dialysis RNs and more pleasant. - Lab 03/14/17 10:12 03/14/17 10:12 Most recent lab results Calcium 8.3 mg/dL (8.6-10.8) L 03/13/17 03:40 Phosphorus 3.4 mg/dL (2.3-4.7) 03/01/17 15:15 Magnesium 1.7 mg/dL (1.6-2.6) 03/04/17 04:36 Consult Discharge Plan - Plan Referrals: Suresh Mendoza MD [Primary Care Provider] - 03/19/17 1:15 pm (web request sent on 03/05/17)
[2017-03-13] MEDS ORDERED: 0.9 % Sodium Chloride 2,000 ML ONE (11:39)
[2017-03-13] MEDS: NIFEdipine XL (24 HR) 60 MG TAB.ER.24 PO SCH (12:52)
[2017-03-13] MEDS: Furosemide 40 MG TABLET PO SCH ×2 (12:52→17:00)
--- NOTE | 2017-03-13 12:58 | Infectious Disease Progress No ---
Date of Encounter: 03/13/17 Time of Encounter: 12:56 - Assessment and Plan (1) Sepsis Current Visit: Yes Status: Resolved The patient had three SIRS criteria on admission. Likely secondary to bacteremia. Resolved. The patient has been afebrile. Her WBC has normalized. Tachycardia has resolved. The patient has had multiple positive blood cultures as outlined below. Qualifiers: Sepsis type: methicillin susceptible Staphylococcus aureus Qualified Code(s ): A41.01 - Sepsis due to Methicillin susceptible Staphylococcus aureus (2) Gram-positive cocci bacteremia Current Visit: Yes Status: Acute Causative organism MSSA with one set of blood cultures positive for mecA gene. Source unclear: dialysis catheter (most likely) vs. abdominal wall wound vs ankle wound vs. dental abscess. Complicated due to persistently positive blood cultures. Peripheral blood culture drawn 03/01/17: + 1/1 sets for MSSA Perma-cath blood culture drawn 03/01/17: + 1/1 sets for MSSA. Perma-cath blood cultures drawn 03/03/17: + 2/2 for MSSA, but mecA gene isolated on PCR. Peripheral blood cultures drawn 03/04/17: + 1/2 for MSSA. Peripheral blood culture drawn 03/06/17: are NGTD 1/1 set. TDC blood cultures drawn 03/06/17: are positive 1/3 sets. Peripheral blood cultures drawn 03/07/17: + 2/2 sets. TDC Blood cultures drawn 03/07/17: NGTD 1/1 set. Peripheral blood cultures drawn 03/08/17: NGTD 2/2 sets. Peripheral blood culture drawn 03/09/17: NGTD 1/1 set. TDC blood culture drawn 03/09/17: + 1/1 set Peripheral blood culture drawn 03/10/17: NGTD 1/1 set. TDC blood culture drawn 03/10/17: NGTD 1/1 set. Peripheral blood cultures drawn 03/11/17: NGTD 2/2 sets. The patient has no indwelling hardware or pacemakers. She did recently have a right chest perm-cath placed in January that had to re-placed shortly thereafter. She is unsure if she had any redness, tenderness, or drainage from the catheter site. Additionally, the patient has very poor dentition, but no obvious evidence of abscess. Consider facial x-rays or CT to evaluate for occult abscess that could be the source of the patient's infection. Catheter removed 03/04/17, but new IJ placed the same day with several exchanges that occurred while the patient was still bacteremic. Not sure if the new catheter is seeded. Discussed with Dr. Aly. States he will make arrangements to have current dialysis catheter removed after dialysis today and give the patient 48 hours without a line. The patient had been on IV Vancomycin since 03/04/17. She was treated with linezolid for two days prior to that. Not sure what to make of the mecA gene that was noted on the PCR on 03/03/17 blood cultures. There may have been a CONS contaminant. Because the mecA gene was picked up on PCR, will err on the side of caution and treat as we would for MRSA. The patient has one major and one minor Modified Barrientos's Criteria. Continue Daptomycin 1000mg IV Q48H. Consider holding Zocor while on Daptomycin. TTE negative for valvular vegetations. Recommend a MARIO prior to discharge. The patient continues to refuse despite multiple conversations about how this could be contributing to her persistent bacteremia. Duration of treatment depends on the clinical picture. (3) Wound, open, abdominal wall, anterior Current Visit: Yes Status: Acute Appears superficial and does not appear infected. Wound culture positive for MSSA. Consult wound care for recommendations. Qualifiers: Encounter type: initial encounter Qualified Code(s): S31.109A - Unspecified open wound of abdominal wall, unspecified quadrant without penetration into peritoneal cavity, initial encounter (4) Ulcer of right ankle Current Visit: Yes Status: Acute Location: Right lateral ankle. Stage II. Clinically does not appear infected. Podiatry consulted who agrees that it does not appear infected. Wound culture positive for normal skin jacki. Wound care per podiatry's recommendations. Qualifiers: Non-pressure ulcer stage: with fat layer exposed Qualified Code(s): L97.312 - Non-pressure chronic ulcer of right ankle with fat layer exposed (5) Elevated troponin Current Visit: Yes Status: Chronic (6) History of end stage renal disease Current Visit: Yes Status: Acute Follows with [facility]. Nephrology consulted and following. (7) S/P dialysis catheter insertion Current Visit: Yes Status: Acute Originally placed 01/17/17 with re-placement 02/08/17. The patient is unsure if the site appeared infection when she came to the hospital. TDC removed 03/01/17. Catheter tip was not sent for culture. - Subjective Interval history: Patient seen and examined. No acute events noted overnight. States she is less tired today since the nurses did not wake her up at 0300. Feels well overall. Denies fevers, chills, or rigors. Denies chest pain, shortness of breath, or cough. Denies pain at this time. Denies abdominal pain, nausea, vomiting, diarrhea, or urinary complaints. States appetite is good. Denies oral thrush or skin lesions. Denies dental pain. Continues to refuse MARIO. Infect Dis PN-Objective Data - Labs CBC & Chem 7: 03/13/17 03:40 03/13/17 03:40 Labs: Laboratory Results - last 24 hr 03/12/17 03/12/17 03/12/17 06:47 11:12 13:58 WBC 10.2 RBC 2.91 L Hgb 8.2 L Hct 25.6 L MCV 88.0 MCH 28.2 MCHC 32.0 RDW 15.5 H Plt Count 190 MPV 9.8 Immature Gran % 1.0 Seg Neutrophils % 76.2 Lymphocytes % 15.7 Monocytes % 5.7 Eosinophils % 1.0 Basophils % 0.4 Neutrophils # 7.8 Lymphocytes # 1.6 Monocytes # 0.6 Eosinophils # 0.1 Basophils # 0.0 Sodium Potassium Chloride Carbon Dioxide BUN Creatinine Est GFR ( Amer) Est GFR (Non-Af Amer) BUN/Creatinine Ratio Glucose POC Glucose 183 H 226 H Calculated Osmolality Calcium 03/12/17 03/13/17 03/13/17 13:58 03:40 03:40 WBC 9.6 RBC 2.57 L Hgb 7.1 L Hct 22.6 L MCV 87.9 MCH 27.6 L MCHC 31.4 L RDW 15.5 H Plt Count 169 MPV 9.9 Immature Gran % 0.5 Seg Neutrophils % 73.3 Lymphocytes % 18.4 Monocytes % 6.2 Eosinophils % 1.3 Basophils % 0.3 Neutrophils # 7.0 Lymphocytes # 1.8 Monocytes # 0.6 Eosinophils # 0.1 Basophils # 0.0 Sodium 139 139 Potassium 4.4 4.3 Chloride 105 107 Carbon Dioxide 25 25 BUN 33 H D 35 H Creatinine 4.87 H 5.19 H Est GFR ( Amer) 11 L 10 L Est GFR (Non-Af Amer) 9 L 9 L BUN/Creatinine Ratio 7 7 Glucose 261 H 133 H POC Glucose Calculated Osmolality 304 H 298 Calcium 8.6 8.3 L Cultures: Cultures 03/06/17 16:00 Blood Culture - Final Central Venous Catheter No growth. 03/07/17 12:24 Blood Culture - Final Arterial Line No growth. 03/11/17 11:42 Blood Culture - Preliminary Peripheral Venipuncture No growth. 03/11/17 11:42 Blood Culture - Preliminary Peripheral Venipuncture No growth. 03/06/17 15:50 Blood Culture - Final Peripheral Venipuncture No growth. 03/06/17 16:00 Blood Culture - Final Central Venous Catheter No growth. 03/10/17 15:04 Blood Culture - Preliminary Peripheral Venipuncture No growth. 03/10/17 17:15 Blood Culture - Preliminary Central Venous Catheter No growth. 03/09/17 14:40 Blood Culture - Final Central Venous Catheter Staphylococcus aureus 03/09/17 14:11 Blood Culture - Preliminary Peripheral Venipuncture No growth. 03/07/17 13:41 Blood Culture - Final Peripheral Venipuncture Staphylococcus aureus 03/04/17 14:50 Blood Culture - Final Peripheral Venipuncture No growth. 03/08/17 15:28 Blood Culture - Preliminary Peripheral Venipuncture No growth. 03/08/17 15:27 Blood Culture - Preliminary Peripheral Venipuncture No growth. 03/07/17 13:41 Blood Culture - Final Peripheral Venipuncture Staphylococcus aureus 03/02/17 17:12 Wound Culture - Final Abdomen Staphylococcus aureus 03/03/17 10:05 Blood Culture - Final Central Venous Catheter Staphylococcus aureus 03/06/17 01:00 Blood Culture - Final Central Venous Catheter Staphylococcus aureus 03/04/17 14:50 Blood Culture - Final Peripheral Venipuncture Staphylococcus aureus 03/03/17 09:55 Blood Culture - Final Central Venous Catheter Staphylococcus aureus 03/02/17 17:11 Wound Culture - Final Right Ankle Normal skin jacki. No apparent pathogens isolated. 03/02/17 05:15 Influenza Types A,B Antigen (YANDY) - Final Nasopharyngeal Serology 03/06/17 03/03/17 Range/Units 01:00 09:55 A. baumannii (PCR) Not Detected Not Detected (Not Detect) Megan albicans (PCR) Not Detected Not Detected (Not Detect) C. glabrata (PCR) Not Detected Not Detected (Not Detect) C. krusei (PCR) Not Detected Not Detected (Not Detect) C. parapsilosis (PCR) Not Detected Not Detected (Not Detect) C. tropicalis (PCR) Not Detected Not Detected (Not Detect) Enterobacteriac sp PCR Not Detected Not Detected (Not Detect) E. cloacae complex PCR Not Detected Not Detected (Not Detect) Enterococcus sp PCR Not Detected Not Detected (Not Detect) E. coli (PCR) Not Detected Not Detected (Not Detect) H. influenzae (PCR) Not Detected Not Detected (Not Detect) Klebsiella oxytoca PCR Not Detected Not Detected (Not Detect) Klebsiella pneumoniae Not Detected Not Detected (Not Detect) List. monocytogenes PCR Not Detected Not Detected (Not Detect) N. meningitidis (PCR) Not Detected Not Detected (Not Detect) Proteus species (PCR) Not Detected Not Detected (Not Detect) Serratia marcescens PCR Not Detected Not Detected (Not Detect) Staphylococcus sp PCR DETECTED A DETECTED A (Not Detect) Staph aureus (PCR) DETECTED A DETECTED A (Not Detect) mecA-Methicil Res Gene Not Detected DETECTED A (Not Detect) Streptococcus sp PCR Not Detected Not Detected (Not Detect) Group A Strep DNA Not Detected Not Detected (Not Detect) Group B Strep (PCR) Not Detected Not Detected (Not Detect) Strep pneumoniae (PCR) Not Detected Not Detected (Not Detect) P. aeruginosa (PCR) Not Detected Not Detected (Not Detect) Jonh/B-Vanco Res Genes N/A N/A (Not Detect) KPC (blaKPC) Detect PCR N/A N/A (Not Detect) Exam - Constitutional Vitals: Temp Pulse Resp BP Pulse Ox 97.7 F 94 15 195/97 97 03/13/17 12:35 03/13/17 08:04 03/13/17 12:35 03/13/17 12:35 03/13/17 08:04 General appearance: cooperative, morbidly obese, no acute distress - Head Head exam: Present: atraumatic, normal inspection, normocephalic - Eye Eye exam: Present: EOMI, normal appearance, PERRL Pupils: Present: normal accommodation Additional comments: No subconjunctival hemorrhage noted. - ENT ENT exam: Present: mucous membranes moist Additional comments: Multiple dental caries and overall poor dentition noted. No obvious abscess noted. - Neck Neck exam: Present: normal inspection Additional comments: Temporary dialysis catheter noted to the left neck, currently accessed for HD. - Respiratory Respiratory exam: Present: CTAB. Absent: rales, respiratory distress, rhonchi, wheezes - Cardiovascular Cardiovascular exam: Present: RRR, +S1, +S2 - GI/Abdominal GI/Abdominal exam: Present: distended (obese), normal bowel sounds, soft. Absent: tenderness - Extremities Exam Extremities exam: Present: normal inspection. Absent: joint swelling, pedal edema, tenderness Additional comments: Right foot dressing C/D/I. - Neurological Exam Neurological exam: Present: alert, oriented X3, no focal deficits - Psychiatric Psychiatric exam: Present: normal affect, normal mood - Skin Skin exam: Present: dry, intact, normal color, warm Additional comments: No endocarditis stigmata noted. Consult Discharge Plan - Plan Referrals: Suresh Mendoza MD [Primary Care Provider] - 03/19/17 1:15 pm (web request sent on 03/05/17)
[2017-03-13] MEDS: DAPTOmycin 1,000 MG in 0.9 % Sodium Chloride 100 ML IVPB SCH (17:56)
--- NOTE | 2017-03-13 18:58 | Internal Med Progress Note ---
Date of Encounter: 03/13/17 Time of Encounter: 11:00 - Assessment and plan (1) Gram-positive cocci bacteremia Current Visit: Yes Status: Acute Assessment and plan: -Source unknown but workup and complete as patient declines MARIO -We will continue daptomycin. (2) ESRD (end stage renal disease) on dialysis Current Visit: No Status: Chronic Assessment and plan: Patient has end-stage renal disease- dialysis on Saturday, Saturday, Saturday IJ catheter is in place and functional -Blood culture 03/07/2017 grew GPC -Blood culture 03/08/2017 preliminary showed no growth. HD port replacement when final report of blood cultures negative -Continue dialysis per nephrology (3) Diabetes Current Visit: No Status: Chronic Assessment and plan: History of diabetes -Continue Levemir and sliding scale Qualifiers: Diabetes mellitus type: type 2 Diabetes mellitus complication status: with neurologic complications Diabetes mellitus complication detail: with polyneuropathy Diabetes mellitus medical terminologist insulin use: with medical terminologist use Qualified Code(s): E11.42 - Type 2 diabetes mellitus with diabetic polyneuropathy; Z79.4 - exterminator helper termite (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; Z79.4 - skilled nursing ( 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; Z79.4 - exterminator helper termite (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; Z79.4 - exterminator helper termite (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 (4) Hypertension Current Visit: No Status: Chronic Assessment and plan: -Continue home medications of nifedipine, losartan -lopressor and hydralazine Qualifiers: Hypertension type: essential hypertension Qualified Code(s): I10 - Essential (primary) hypertension (5) DVT prophylaxis Current Visit: No Status: Acute Assessment and plan: Heparin subcutaneous - Subjective Interval history: No acute events overnight. - Constitutional Vitals: Temp Pulse Resp BP Pulse Ox 98.7 F 98 17 168/88 97 03/13/17 15:55 03/13/17 15:55 03/13/17 15:55 03/13/17 15:55 03/13/17 15:55 General appearance: Present: A&O X 3, obese, answers questions appropriately - Respiratory Respiratory exam: Present: CTAB. Absent: accessory muscle use, rales, rhonchi, wheezes - Cardiovascular Cardiovascular exam: Present: RRR, +S1, +S2. Absent: diastolic murmur, gallop, rubs, systolic murmur Internal Medicine: Result - Labs CBC & Chem 7: 03/13/17 03:40 03/13/17 03:40 Labs: Short CBC 03/13/17 Range/Units 03:40 WBC 9.6 (4.3-11.1) K/mcL Hgb 7.1 L (11.5-15.4) g/dL Hct 22.6 L (35.3-44.9) % Plt Count 169 (140-400) K/mcL Neutrophils # 7.0 (1.6-8.9) K/mcL BMP 03/13/17 03:40 Sodium 139 Potassium 4.3 Chloride 107 Carbon Dioxide 25 BUN 35 H Creatinine 5.19 H Glucose 133 H Calcium 8.3 L - ABG Interpretation ABG results: PT/INR, D-dimer PT 14.0 Seconds (9.4-12.1) H 03/01/17 15:15 Consult Discharge Plan - Plan Referrals: Suresh Mendoza MD [Primary Care Provider] - 03/19/17 1:15 pm (web request sent on 03/05/17)
[2017-03-14] MEDS: *HR* Heparin 5,000 UNIT/ML VIAL SQ SCH ×2 (05:12→17:32)
[2017-03-14] MEDS: Budesonide/Formoterol 160/4.5 MDI IH SCH ×2 (07:48→20:33)
[2017-03-14] MEDS: Insulin LISPRO 300 UNITS/3 ML VIAL SQ SCH ×4 (08:12→22:10)
[2017-03-14] MEDS: Iron Polysaccharide Complex 150 MG CAPSULE PO SCH (08:13)
[2017-03-14] MEDS: Multivit/Ca/Min/Fe/FA 1 TAB TABLET PO SCH (08:13)
[2017-03-14] MEDS: Calcium Acetate 667 MG CAPSULE PO SCH ×3 (08:13→16:19)
[2017-03-14] MEDS: Furosemide 40 MG TABLET PO SCH ×2 (08:13→16:19)
[2017-03-14] MEDS: hydrALAZINE 25 MG TABLET PO SCH ×3 (08:14→23:27)
[2017-03-14] MEDS: NIFEdipine XL (24 HR) 60 MG TAB.ER.24 PO SCH (08:15)
[2017-03-14] MEDS: Insulin DETEMIR 100 UNIT/ML X5UNITS SQ SCH ×2 (08:22→22:03)
--- NOTE | 2017-03-14 08:39 | Nephrology Progress Note ---
Date of Encounter: 03/14/17 Time of Encounter: 08:36 - Assessment and Plan (1) ESRD (end stage renal disease) on dialysis Current Visit: No Status: Chronic Currently on a line holiday Preliminary blood cultures negative for several days now Will make NPO tonight with plans to have permacath placed tomorrow followed by HD Continue renal diet Avoid nephrotoxins if possible (2) Gram-positive cocci bacteremia Current Visit: Yes Status: Acute Patient refuses MARIO per primary team (3) Sepsis Current Visit: Yes Status: Resolved per primary team Qualifiers: Sepsis type: methicillin susceptible Staphylococcus aureus Qualified Code(s ): A41.01 - Sepsis due to Methicillin susceptible Staphylococcus aureus (4) Anemia Current Visit: No Status: Acute Hgb 7.1 Goal 10-11 Continue MARIBEL Transfuse per parameters Qualifiers: Anemia type: due to chronic kidney disease Chronic kidney disease stage: on chronic dialysis Qualified Code(s): N18.6 - End stage renal disease; D63.1 - Anemia in chronic kidney disease; D63.1 - Anemia in chronic kidney disease; Z99.2 - Dependence on renal dialysis; Z99.2 - Dependence on renal dialysis; Z99.2 - Dependence on renal dialysis; Z99.2 - Dependence on renal dialysis Subjective Principal diagnosis: ESRD Interval history: Patient seen and examined. Sitting up in bed, pleasant today. Objective - Vital Signs Vital signs: Vital Signs Temp Pulse Resp BP Pulse Ox 03/14/17 07:57 98.5 F 90 17 133/80 100 03/14/17 07:49 18 98 03/13/17 20:33 18 98 03/13/17 19:26 99.0 F 92 18 133/78 97 03/13/17 15:55 98.7 F 98 17 168/88 97 03/13/17 12:35 97.7 F 15 195/97 03/13/17 12:25 174/79 03/13/17 11:55 165/83 03/13/17 11:25 172/78 03/13/17 10:55 185/91 03/13/17 10:25 166/79 03/13/17 09:55 182/79 03/13/17 09:25 182/79 03/13/17 08:55 97.8 F 15 201/94 Intake and Output 03/13/17 03/14/17 03/14/17 23:59 07:59 15:59 Intake Total 180 / 180 Balance 180 / 180 Intake: Oral 180 / 180 Other: Meal Dinner Percent of Meal Consumed 70% Blood Glucose* 254 150 - General Appearance General appearance: Present: obese EENT: Present: ATNC, mucous membranes moist, hearing intact, vision intact Neck: Present: supple Respiratory: Present: clear Cardiology: Present: no edema, normal S1, normal S2 Gastrointestinal: Present: no tenderness, no guarding, obese Integumentary: Present: warm and dry Neurologic: Present: alert and oriented x3 Psychiatric: Present: mood/affect appropriate, cooperative - Lab 03/13/17 03:40 03/13/17 03:40 Most recent lab results Calcium 8.3 mg/dL (8.6-10.8) L 03/13/17 03:40 Phosphorus 3.4 mg/dL (2.3-4.7) 03/01/17 15:15 Magnesium 1.7 mg/dL (1.6-2.6) 03/04/17 04:36 Consult Discharge Plan - Plan Referrals: Suresh Mendoza MD [Primary Care Provider] - 03/19/17 1:15 pm (web request sent on 03/05/17)
[2017-03-14 10:21] LABS: Basophils # 0.1 K/mcL (0.0-0.2); Basophils % 0.4 %; Eosinophils # 0.2 K/mcL (0.0-0.6); Eosinophils % 1.6 %; Hematocrit 26.8 % (35.3-44.9); Hemoglobin 8.3 g/dL (11.5-15.4); Immature Granulocytes % 0.6 % (0-4); Lymphocytes % 17.6 %; Mean Corpuscular Hemoglobin 27.2 pg (28.0-33.3); Mean Corpuscular Volume 87.9 fL (83.0-100.0); Mean Platelet Volume 10.3 fL (9.4-12.4); Monocytes # 0.7 K/mcL (0.0-1.3); Monocytes % 5.7 %; Neutrophils # 8.4 K/mcL (1.6-8.9); Platelet Count 224 K/mcL (140-400); Red Blood Count 3.05 M/mcL (3.82-4.97); Red Cell Distribution Width 15.7 % (11.5-14.5); Segmented Neutrophils % 74.1 %
[2017-03-14 10:30] LABS: Calcium 8.6 mg/dL (8.6-10.8); Potassium 4.1 mEq/L (3.5-4.5)
[2017-03-14] MEDS: Silver Sulfadiazine 50 GM TUBE TP SCH (11:42)
--- NOTE | 2017-03-14 11:51 | Infectious Disease Progress No ---
Date of Encounter: 03/14/17 Time of Encounter: 11:48 - Assessment and Plan (1) Sepsis Current Visit: Yes Status: Resolved The patient had three SIRS criteria on admission. Likely secondary to bacteremia. Resolved. The patient has been afebrile. Her WBC has normalized. Tachycardia has resolved. The patient has had multiple positive blood cultures as outlined below. Qualifiers: Sepsis type: methicillin susceptible Staphylococcus aureus Qualified Code(s ): A41.01 - Sepsis due to Methicillin susceptible Staphylococcus aureus (2) Gram-positive cocci bacteremia Current Visit: Yes Status: Acute Causative organism MSSA with one set of blood cultures positive for mecA gene. Source unclear: dialysis catheter (most likely) vs. abdominal wall wound vs ankle wound vs. dental abscess. Complicated due to persistently positive blood cultures. Peripheral blood culture drawn 03/01/17: + 1/1 sets for MSSA Perma-cath blood culture drawn 03/01/17: + 1/1 sets for MSSA. Perma-cath blood cultures drawn 03/03/17: + 2/2 for MSSA, but mecA gene isolated on PCR. Peripheral blood cultures drawn 03/04/17: + 1/2 for MSSA. Peripheral blood culture drawn 03/06/17: are NGTD 1/1 set. TDC blood cultures drawn 03/06/17: are positive 1/3 sets. Peripheral blood cultures drawn 03/07/17: + 2/2 sets. TDC Blood cultures drawn 03/07/17: NGTD 1/1 set. Peripheral blood cultures drawn 03/08/17: NGTD 2/2 sets. Peripheral blood culture drawn 03/09/17: NGTD 1/1 set. TDC blood culture drawn 03/09/17: + 1/1 set Peripheral blood culture drawn 03/10/17: NGTD 1/1 set. TDC blood culture drawn 03/10/17: NGTD 1/1 set. Peripheral blood cultures drawn 03/11/17: NGTD 2/2 sets. The patient has no indwelling hardware or pacemakers. She did recently have a right chest perm-cath placed in January that had to re-placed shortly thereafter. She is unsure if she had any redness, tenderness, or drainage from the catheter site. Additionally, the patient has very poor dentition, but no obvious evidence of abscess. Consider facial x-rays or CT to evaluate for occult abscess that could be the source of the patient's infection. Catheter removed 03/04/17, but new IJ placed the same day with several exchanges that occurred while the patient was still bacteremic. Status post removal of temporary dialysis catheter removal 03/13/17. Not sure what to make of the mecA gene that was noted on the PCR on 03/03/17 blood cultures. There may have been a CONS contaminant. Because the mecA gene was picked up on PCR, will err on the side of caution and treat as we would for MRSA. The patient has one major and one minor Modified Barrientos's Criteria. Continue Daptomycin 1000mg IV Q48H. Consider holding Zocor while on Daptomycin. TTE negative for valvular vegetations. Recommend a MARIO prior to discharge. The patient continues to refuse MARIO. Duration of treatment depends on the clinical picture, but likely 6 weeks of IV antibiotics will be required since we cannot rule out IE and the patient had persistent bacteremia. EPIV has been placed. Will need weekly CBC and CK levels. Will need weekly EPIV care. Follow up with ID 03/28/17 at 0840. (3) Wound, open, abdominal wall, anterior Current Visit: Yes Status: Acute Appears superficial and does not appear infected. Wound culture positive for MSSA. Consult wound care for recommendations. Qualifiers: Encounter type: initial encounter Qualified Code(s): S31.109A - Unspecified open wound of abdominal wall, unspecified quadrant without penetration into peritoneal cavity, initial encounter (4) Ulcer of right ankle Current Visit: Yes Status: Acute Location: Right lateral ankle. Stage II. Clinically does not appear infected. Podiatry consulted who agrees that it does not appear infected. Wound culture positive for normal skin jacki. Wound care per podiatry's recommendations. Qualifiers: Non-pressure ulcer stage: with fat layer exposed Qualified Code(s): L97.312 - Non-pressure chronic ulcer of right ankle with fat layer exposed (5) Elevated troponin Current Visit: Yes Status: Chronic (6) History of end stage renal disease Current Visit: Yes Status: Acute Follows with [facility]. Nephrology consulted and following. (7) S/P dialysis catheter insertion Current Visit: Yes Status: Acute Originally placed 01/17/17 with re-placement 02/08/17. The patient is unsure if the site appeared infection when she came to the hospital. TDC removed 03/01/17. Catheter tip was not sent for culture. - Subjective Interval history: Patient seen and examined. No acute events noted overnight. States she feels better today. Feels well overall. Denies fevers, chills, or rigors. Denies chest pain, shortness of breath, or cough. Denies pain at this time. Denies abdominal pain, nausea, vomiting, diarrhea, or urinary complaints. States appetite is good. Denies oral thrush or skin lesions. Denies dental pain. Status post temporary dialysis catheter removal yesterday. Continues to refuse MARIO. Infect Dis PN-Objective Data - Labs CBC & Chem 7: 03/14/17 10:12 03/14/17 10:12 Labs: Laboratory Results - last 24 hr 03/12/17 03/12/17 03/13/17 15:57 20:18 08:03 WBC RBC Hgb Hct MCV MCH MCHC RDW Plt Count MPV Immature Gran % Seg Neutrophils % Lymphocytes % Monocytes % Eosinophils % Basophils % Neutrophils # Lymphocytes # Monocytes # Eosinophils # Basophils # Sodium Potassium Chloride Carbon Dioxide BUN Creatinine Est GFR ( Amer) Est GFR (Non-Af Amer) BUN/Creatinine Ratio Glucose POC Glucose 235 H 147 H 151 H Calculated Osmolality Calcium 03/13/17 03/13/17 03/13/17 12:55 15:53 20:30 WBC RBC Hgb Hct MCV MCH MCHC RDW Plt Count MPV Immature Gran % Seg Neutrophils % Lymphocytes % Monocytes % Eosinophils % Basophils % Neutrophils # Lymphocytes # Monocytes # Eosinophils # Basophils # Sodium Potassium Chloride Carbon Dioxide BUN Creatinine Est GFR ( Amer) Est GFR (Non-Af Amer) BUN/Creatinine Ratio Glucose POC Glucose 171 H 254 H 254 H Calculated Osmolality Calcium 03/14/17 03/14/17 10:12 10:12 WBC 11.3 H RBC 3.05 L Hgb 8.3 L Hct 26.8 L MCV 87.9 MCH 27.2 L MCHC 31.0 L RDW 15.7 H Plt Count 224 MPV 10.3 Immature Gran % 0.6 Seg Neutrophils % 74.1 Lymphocytes % 17.6 Monocytes % 5.7 Eosinophils % 1.6 Basophils % 0.4 Neutrophils # 8.4 Lymphocytes # 2.0 Monocytes # 0.7 Eosinophils # 0.2 Basophils # 0.1 Sodium 138 Potassium 4.1 Chloride 103 Carbon Dioxide 25 BUN 23 H D Creatinine 4.36 H Est GFR ( Amer) 13 L Est GFR (Non-Af Amer) 10 L BUN/Creatinine Ratio 5 L Glucose 155 H POC Glucose Calculated Osmolality 293 Calcium 8.6 Cultures: Cultures 03/08/17 15:28 Blood Culture - Final Peripheral Venipuncture No growth. 03/08/17 15:27 Blood Culture - Final Peripheral Venipuncture No growth. 03/06/17 16:00 Blood Culture - Final Central Venous Catheter No growth. 03/07/17 12:24 Blood Culture - Final Arterial Line No growth. 03/11/17 11:42 Blood Culture - Preliminary Peripheral Venipuncture No growth. 03/11/17 11:42 Blood Culture - Preliminary Peripheral Venipuncture No growth. 03/06/17 15:50 Blood Culture - Final Peripheral Venipuncture No growth. 03/06/17 16:00 Blood Culture - Final Central Venous Catheter No growth. 03/10/17 15:04 Blood Culture - Preliminary Peripheral Venipuncture No growth. 03/10/17 17:15 Blood Culture - Preliminary Central Venous Catheter No growth. 03/09/17 14:40 Blood Culture - Final Central Venous Catheter Staphylococcus aureus 03/09/17 14:11 Blood Culture - Preliminary Peripheral Venipuncture No growth. 03/07/17 13:41 Blood Culture - Final Peripheral Venipuncture Staphylococcus aureus 03/04/17 14:50 Blood Culture - Final Peripheral Venipuncture No growth. 03/07/17 13:41 Blood Culture - Final Peripheral Venipuncture Staphylococcus aureus 03/02/17 17:12 Wound Culture - Final Abdomen Staphylococcus aureus 03/03/17 10:05 Blood Culture - Final Central Venous Catheter Staphylococcus aureus 03/06/17 01:00 Blood Culture - Final Central Venous Catheter Staphylococcus aureus 03/04/17 14:50 Blood Culture - Final Peripheral Venipuncture Staphylococcus aureus 03/03/17 09:55 Blood Culture - Final Central Venous Catheter Staphylococcus aureus 03/02/17 17:11 Wound Culture - Final Right Ankle Normal skin jacki. No apparent pathogens isolated. 03/02/17 05:15 Influenza Types A,B Antigen (YANDY) - Final Nasopharyngeal Serology 03/06/17 03/03/17 Range/Units 01:00 09:55 A. baumannii (PCR) Not Detected Not Detected (Not Detect) Megan albicans (PCR) Not Detected Not Detected (Not Detect) C. glabrata (PCR) Not Detected Not Detected (Not Detect) C. krusei (PCR) Not Detected Not Detected (Not Detect) C. parapsilosis (PCR) Not Detected Not Detected (Not Detect) C. tropicalis (PCR) Not Detected Not Detected (Not Detect) Enterobacteriac sp PCR Not Detected Not Detected (Not Detect) E. cloacae complex PCR Not Detected Not Detected (Not Detect) Enterococcus sp PCR Not Detected Not Detected (Not Detect) E. coli (PCR) Not Detected Not Detected (Not Detect) H. influenzae (PCR) Not Detected Not Detected (Not Detect) Klebsiella oxytoca PCR Not Detected Not Detected (Not Detect) Klebsiella pneumoniae Not Detected Not Detected (Not Detect) List. monocytogenes PCR Not Detected Not Detected (Not Detect) N. meningitidis (PCR) Not Detected Not Detected (Not Detect) Proteus species (PCR) Not Detected Not Detected (Not Detect) Serratia marcescens PCR Not Detected Not Detected (Not Detect) Staphylococcus sp PCR DETECTED A DETECTED A (Not Detect) Staph aureus (PCR) DETECTED A DETECTED A (Not Detect) mecA-Methicil Res Gene Not Detected DETECTED A (Not Detect) Streptococcus sp PCR Not Detected Not Detected (Not Detect) Group A Strep DNA Not Detected Not Detected (Not Detect) Group B Strep (PCR) Not Detected Not Detected (Not Detect) Strep pneumoniae (PCR) Not Detected Not Detected (Not Detect) P. aeruginosa (PCR) Not Detected Not Detected (Not Detect) Jonh/B-Vanco Res Genes N/A N/A (Not Detect) KPC (blaKPC) Detect PCR N/A N/A (Not Detect) Exam - Constitutional Vitals: Temp Pulse Resp BP Pulse Ox 98.1 F 92 16 159/82 98 03/14/17 11:23 03/14/17 11:23 03/14/17 11:23 03/14/17 11:23 03/14/17 11:23 General appearance: cooperative, morbidly obese, no acute distress - Head Head exam: Present: atraumatic, normal inspection, normocephalic - Eye Eye exam: Present: EOMI, normal appearance, PERRL Pupils: Present: normal accommodation Additional comments: No subconjunctival hemorrhage noted. - ENT ENT exam: Present: mucous membranes moist - Neck Neck exam: Present: normal inspection Additional comments: Left neck dressing C/D/I. - Respiratory Respiratory exam: Present: CTAB. Absent: rales, respiratory distress, rhonchi, wheezes - Cardiovascular Cardiovascular exam: Present: RRR, +S1, +S2 - GI/Abdominal GI/Abdominal exam: Present: distended (obese), normal bowel sounds, soft. Absent: tenderness - Extremities Exam Extremities exam: Present: normal inspection. Absent: joint swelling, pedal edema, tenderness Additional comments: Right foot dressing C/D/I. - Neurological Exam Neurological exam: Present: alert, oriented X3, no focal deficits - Psychiatric Psychiatric exam: Present: normal affect, normal mood - Skin Skin exam: Present: dry, intact, normal color, warm Additional comments: No endocarditis stigmata noted. Consult Discharge Plan - Plan Referrals: Suresh Mendoza MD [Primary Care Provider] - 03/19/17 1:15 pm (web request sent on 03/05/17)
--- NOTE | 2017-03-14 18:09 | Internal Med Progress Note ---
Date of Encounter: 03/14/17 Time of Encounter: 11:00 - Assessment and plan (1) Gram-positive cocci bacteremia Current Visit: Yes Status: Acute Assessment and plan: -Source unknown but workup and complete as patient declines MARIO -Repeat cultures have been negative since 03/10/17 -We will continue daptomycin. (2) ESRD (end stage renal disease) on dialysis Current Visit: No Status: Chronic Assessment and plan: Patient has end-stage renal disease- dialysis on Saturday, Saturday, Saturday IJ catheter is in place and functional -Blood culture 03/07/2017 grew GPC -Blood culture 03/08/2017 preliminary showed no growth. HD port replacement when final report of blood cultures negative -Continue dialysis per nephrology (3) Diabetes Current Visit: No Status: Chronic Assessment and plan: History of diabetes -Continue Levemir and sliding scale Qualifiers: Diabetes mellitus type: type 2 Diabetes mellitus complication status: with neurologic complications Diabetes mellitus complication detail: with polyneuropathy Diabetes mellitus terminal supervisor insulin use: with penitentiary use Qualified Code(s): E11.42 - Type 2 diabetes mellitus with diabetic polyneuropathy; Z79.4 - buttermaker (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; Z79.4 - buttermaker ( 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; Z79.4 - residential (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; Z79.4 - buttermaker (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 (4) Hypertension Current Visit: No Status: Chronic Assessment and plan: -Continue home medications of nifedipine, losartan -lopressor and hydralazine Qualifiers: Hypertension type: essential hypertension Qualified Code(s): I10 - Essential (primary) hypertension (5) DVT prophylaxis Current Visit: No Status: Acute Assessment and plan: Heparin subcutaneous - Subjective Interval history: No acute events overnight. - Constitutional Vitals: Temp Pulse Resp BP Pulse Ox 98.1 F 90 15 157/72 99 03/14/17 11:23 03/14/17 15:42 03/14/17 15:42 03/14/17 15:42 03/14/17 15:42 General appearance: Present: A&O X 3, obese, answers questions appropriately - Respiratory Respiratory exam: Present: CTAB. Absent: accessory muscle use, rales, rhonchi, wheezes - Cardiovascular Cardiovascular exam: Present: RRR, +S1, +S2. Absent: diastolic murmur, gallop, rubs, systolic murmur Internal Medicine: Result - Labs CBC & Chem 7: 03/14/17 10:12 03/14/17 10:12 Labs: Short CBC 03/14/17 Range/Units 10:12 WBC 11.3 H (4.3-11.1) K/mcL Hgb 8.3 L (11.5-15.4) g/dL Hct 26.8 L (35.3-44.9) % Plt Count 224 (140-400) K/mcL Neutrophils # 8.4 (1.6-8.9) K/mcL BMP 03/14/17 10:12 Sodium 138 Potassium 4.1 Chloride 103 Carbon Dioxide 25 BUN 23 H D Creatinine 4.36 H Glucose 155 H Calcium 8.6 - ABG Interpretation ABG results: PT/INR, D-dimer PT 14.0 Seconds (9.4-12.1) H 03/01/17 15:15 Consult Discharge Plan - Plan Referrals: Suresh Mendoza MD [Primary Care Provider] - 03/19/17 1:15 pm (web request sent on 03/05/17)
[2017-03-15] MEDS: Multivit/Ca/Min/Fe/FA 1 TAB TABLET PO SCH (05:54)
[2017-03-15] MEDS: Calcium Acetate 667 MG CAPSULE PO SCH ×3 (05:54→17:41)
[2017-03-15] MEDS: Silver Sulfadiazine 50 GM TUBE TP SCH (05:55)
[2017-03-15] MEDS: *HR* Heparin 5,000 UNIT/ML VIAL SQ SCH ×2 (05:55→21:32)
[2017-03-15] MEDS ORDERED: 0.9 % Sodium Chloride 250 ML IVC PRN (05:56)
[2017-03-15] MEDS: Insulin LISPRO 300 UNITS/3 ML VIAL SQ SCH ×4 (07:46→21:32)
[2017-03-15] MEDS: hydrALAZINE 25 MG TABLET PO SCH ×2 (07:47→19:46)
[2017-03-15] MEDS: Budesonide/Formoterol 160/4.5 MDI IH SCH (08:19)
[2017-03-15] MEDS: Furosemide 40 MG TABLET PO SCH ×2 (08:42→21:33)
[2017-03-15] MEDS: Iron Polysaccharide Complex 150 MG CAPSULE PO SCH (08:42)
[2017-03-15] MEDS: Insulin DETEMIR 100 UNIT/ML X5UNITS SQ SCH ×2 (08:58→21:32)
[2017-03-15 09:27] LABS: Calcium 8.6 mg/dL (8.6-10.8); Potassium 4.5 mEq/L (3.5-4.5)
[2017-03-15 09:32] LABS: Basophils # 0.1 K/mcL (0.0-0.2); Basophils % 0.5 %; Eosinophils # 0.2 K/mcL (0.0-0.6); Eosinophils % 1.6 %; Hematocrit 26.3 % (35.3-44.9); Hemoglobin 8.2 g/dL (11.5-15.4); Immature Granulocytes % 0.5 % (0-4); Lymphocytes # 1.8 K/mcL (0.6-4.6); Lymphocytes % 17.1 %; Mean Corpuscular HGB Conc 31.2 g/dL (31.6-35.5); Mean Corpuscular Hemoglobin 27.8 pg (28.0-33.3); Mean Corpuscular Volume 89.2 fL (83.0-100.0); Mean Platelet Volume 10.3 fL (9.4-12.4); Monocytes # 0.5 K/mcL (0.0-1.3); Monocytes % 5.1 %; Neutrophils # 7.7 K/mcL (1.6-8.9); Platelet Count 226 K/mcL (140-400); Red Blood Count 2.95 M/mcL (3.82-4.97); Red Cell Distribution Width 15.4 % (11.5-14.5); Segmented Neutrophils % 75.2 %
--- NOTE | 2017-03-15 10:25 | Infectious Disease Progress No ---
Date of Encounter: 03/15/17 Time of Encounter: 10: - Assessment and Plan (1) Sepsis Current Visit: Yes Status: Resolved The patient had three SIRS criteria on admission. Likely secondary to bacteremia. Resolved. The patient has been afebrile. Her WBC has normalized. Tachycardia has resolved. The patient has had multiple positive blood cultures as outlined below. Qualifiers: Sepsis type: methicillin susceptible Staphylococcus aureus Qualified Code(s ): A41.01 - Sepsis due to Methicillin susceptible Staphylococcus aureus (2) Gram-positive cocci bacteremia Current Visit: Yes Status: Acute Causative organism MSSA with one set of blood cultures positive for mecA gene. Source unclear: dialysis catheter (most likely) vs. abdominal wall wound vs ankle wound vs. dental abscess. Complicated due to persistently positive blood cultures. Peripheral blood culture drawn 03/01/17: + 1/1 sets for MSSA Perma-cath blood culture drawn 03/01/17: + 1/1 sets for MSSA. Perma-cath blood cultures drawn 03/03/17: + 2/2 for MSSA, but mecA gene isolated on PCR. Peripheral blood cultures drawn 03/04/17: + 1/2 for MSSA. Peripheral blood culture drawn 03/06/17: are NGTD 1/1 set. TDC blood cultures drawn 03/06/17: are positive 1/3 sets. Peripheral blood cultures drawn 03/07/17: + 2/2 sets. TDC Blood cultures drawn 03/07/17: NGTD 1/1 set. Peripheral blood cultures drawn 03/08/17: NGTD 2/2 sets. Peripheral blood culture drawn 03/09/17: NGTD 1/1 set. TDC blood culture drawn 03/09/17: + 1/1 set Peripheral blood culture drawn 03/10/17: NGTD 1/1 set. TDC blood culture drawn 03/10/17: NGTD 1/1 set. Peripheral blood cultures drawn 03/11/17: NGTD 2/2 sets. The patient has no indwelling hardware or pacemakers. She did recently have a right chest perm-cath placed in January that had to re-placed shortly thereafter. She is unsure if she had any redness, tenderness, or drainage from the catheter site. Additionally, the patient has very poor dentition, but no obvious evidence of abscess. Catheter removed 03/04/17, but new IJ placed the same day with several exchanges that occurred while the patient was still bacteremic. Status post removal of temporary dialysis catheter removal 03/13/17 for 48 hour line holiday. Plan for re-insertion of Perma-cath later today since 03/10/17 blood cultures remain negative. Not sure what to make of the mecA gene that was noted on the PCR on 03/03/17 blood cultures. There may have been a CONS contaminant. Because the mecA gene was picked up on PCR, will err on the side of caution and treat as we would for MRSA. The patient has one major and one minor Modified Barrientos's Criteria. Continue Daptomycin 1000mg IV Q48H. Consider holding Zocor while on Daptomycin. TTE negative for valvular vegetations. Recommend a MARIO prior to discharge. The patient continues to refuse MARIO. Duration of treatment depends on the clinical picture, but likely 6 weeks of IV antibiotics will be required since we cannot rule out IE and the patient had persistent bacteremia. EPIV has been placed. Will need weekly CBC and CK levels. Will need weekly EPIV care. Follow up with ID 03/28/17 at 0840. (3) Wound, open, abdominal wall, anterior Current Visit: Yes Status: Acute Appears superficial and does not appear infected. Wound culture positive for MSSA. Consult wound care for recommendations. Qualifiers: Encounter type: initial encounter Qualified Code(s): S31.109A - Unspecified open wound of abdominal wall, unspecified quadrant without penetration into peritoneal cavity, initial encounter (4) Ulcer of right ankle Current Visit: Yes Status: Acute Location: Right lateral ankle. Stage II. Clinically does not appear infected. Podiatry consulted who agrees that it does not appear infected. Wound culture positive for normal skin jacki. Wound care per podiatry's recommendations. Qualifiers: Non-pressure ulcer stage: with fat layer exposed Qualified Code(s): L97.312 - Non-pressure chronic ulcer of right ankle with fat layer exposed (5) Elevated troponin Current Visit: Yes Status: Chronic (6) History of end stage renal disease Current Visit: Yes Status: Acute Follows with [facility]. Nephrology consulted and following. (7) S/P dialysis catheter insertion Current Visit: Yes Status: Acute Originally placed 01/17/17 with re-placement 02/08/17. The patient is unsure if the site appeared infection when she came to the hospital. TDC removed 03/01/17. Catheter tip was not sent for culture. - Subjective Interval history: Patient seen and examined. No acute events noted overnight. States she feels better today. Feels well overall. Denies fevers, chills, or rigors. Denies chest pain, shortness of breath, or cough. Denies pain at this time. Denies abdominal pain, nausea, vomiting, diarrhea, or urinary complaints. States appetite is good. Denies oral thrush or skin lesions. Denies dental pain. Repeat blood cultures remain negative. Plan for Perma-cath placement later today and discharge home after dialysis. Continues to refuse MARIO. Infect Dis PN-Objective Data - Labs CBC & Chem 7: 03/15/17 09:05 03/15/17 09:05 Labs: Laboratory Results - last 24 hr 03/14/17 03/14/17 03/14/17 07:55 10:12 10:12 WBC 11.3 H RBC 3.05 L Hgb 8.3 L Hct 26.8 L MCV 87.9 MCH 27.2 L MCHC 31.0 L RDW 15.7 H Plt Count 224 MPV 10.3 Immature Gran % 0.6 Seg Neutrophils % 74.1 Lymphocytes % 17.6 Monocytes % 5.7 Eosinophils % 1.6 Basophils % 0.4 Neutrophils # 8.4 Lymphocytes # 2.0 Monocytes # 0.7 Eosinophils # 0.2 Basophils # 0.1 Sodium 138 Potassium 4.1 Chloride 103 Carbon Dioxide 25 BUN 23 H D Creatinine 4.36 H Est GFR ( Amer) 13 L Est GFR (Non-Af Amer) 10 L BUN/Creatinine Ratio 5 L Glucose 155 H POC Glucose 150 H Calculated Osmolality 293 Calcium 8.6 03/14/17 03/14/17 03/14/17 11:25 15:45 20:13 WBC RBC Hgb Hct MCV MCH MCHC RDW Plt Count MPV Immature Gran % Seg Neutrophils % Lymphocytes % Monocytes % Eosinophils % Basophils % Neutrophils # Lymphocytes # Monocytes # Eosinophils # Basophils # Sodium Potassium Chloride Carbon Dioxide BUN Creatinine Est GFR ( Amer) Est GFR (Non-Af Amer) BUN/Creatinine Ratio Glucose POC Glucose 302 H 155 H 236 H Calculated Osmolality Calcium 03/15/17 03/15/17 09:05 09:05 WBC 10.2 RBC 2.95 L Hgb 8.2 L Hct 26.3 L MCV 89.2 MCH 27.8 L MCHC 31.2 L RDW 15.4 H Plt Count 226 MPV 10.3 Immature Gran % 0.5 Seg Neutrophils % 75.2 Lymphocytes % 17.1 Monocytes % 5.1 Eosinophils % 1.6 Basophils % 0.5 Neutrophils # 7.7 Lymphocytes # 1.8 Monocytes # 0.5 Eosinophils # 0.2 Basophils # 0.1 Sodium 139 Potassium 4.5 Chloride 106 Carbon Dioxide 25 BUN 30 H Creatinine 5.17 H Est GFR ( Amer) 10 L Est GFR (Non-Af Amer) 9 L BUN/Creatinine Ratio 6 Glucose 166 H POC Glucose Calculated Osmolality 298 Calcium 8.6 Cultures: Cultures 03/09/17 14:11 Blood Culture - Final Peripheral Venipuncture No growth. 03/08/17 15:28 Blood Culture - Final Peripheral Venipuncture No growth. 03/08/17 15:27 Blood Culture - Final Peripheral Venipuncture No growth. 03/06/17 16:00 Blood Culture - Final Central Venous Catheter No growth. 03/07/17 12:24 Blood Culture - Final Arterial Line No growth. 03/11/17 11:42 Blood Culture - Preliminary Peripheral Venipuncture No growth. 03/11/17 11:42 Blood Culture - Preliminary Peripheral Venipuncture No growth. 03/06/17 15:50 Blood Culture - Final Peripheral Venipuncture No growth. 03/06/17 16:00 Blood Culture - Final Central Venous Catheter No growth. 03/10/17 15:04 Blood Culture - Preliminary Peripheral Venipuncture No growth. 03/10/17 17:15 Blood Culture - Preliminary Central Venous Catheter No growth. 03/09/17 14:40 Blood Culture - Final Central Venous Catheter Staphylococcus aureus 03/07/17 13:41 Blood Culture - Final Peripheral Venipuncture Staphylococcus aureus 03/04/17 14:50 Blood Culture - Final Peripheral Venipuncture No growth. 03/07/17 13:41 Blood Culture - Final Peripheral Venipuncture Staphylococcus aureus 03/02/17 17:12 Wound Culture - Final Abdomen Staphylococcus aureus 03/03/17 10:05 Blood Culture - Final Central Venous Catheter Staphylococcus aureus 03/06/17 01:00 Blood Culture - Final Central Venous Catheter Staphylococcus aureus 03/04/17 14:50 Blood Culture - Final Peripheral Venipuncture Staphylococcus aureus 03/03/17 09:55 Blood Culture - Final Central Venous Catheter Staphylococcus aureus 03/02/17 17:11 Wound Culture - Final Right Ankle Normal skin jacki. No apparent pathogens isolated. 03/02/17 05:15 Influenza Types A,B Antigen (YANDY) - Final Nasopharyngeal Serology 03/06/17 03/03/17 Range/Units 01:00 09:55 A. baumannii (PCR) Not Detected Not Detected (Not Detect) Megan albicans (PCR) Not Detected Not Detected (Not Detect) C. glabrata (PCR) Not Detected Not Detected (Not Detect) C. krusei (PCR) Not Detected Not Detected (Not Detect) C. parapsilosis (PCR) Not Detected Not Detected (Not Detect) C. tropicalis (PCR) Not Detected Not Detected (Not Detect) Enterobacteriac sp PCR Not Detected Not Detected (Not Detect) E. cloacae complex PCR Not Detected Not Detected (Not Detect) Enterococcus sp PCR Not Detected Not Detected (Not Detect) E. coli (PCR) Not Detected Not Detected (Not Detect) H. influenzae (PCR) Not Detected Not Detected (Not Detect) Klebsiella oxytoca PCR Not Detected Not Detected (Not Detect) Klebsiella pneumoniae Not Detected Not Detected (Not Detect) List. monocytogenes PCR Not Detected Not Detected (Not Detect) N. meningitidis (PCR) Not Detected Not Detected (Not Detect) Proteus species (PCR) Not Detected Not Detected (Not Detect) Serratia marcescens PCR Not Detected Not Detected (Not Detect) Staphylococcus sp PCR DETECTED A DETECTED A (Not Detect) Staph aureus (PCR) DETECTED A DETECTED A (Not Detect) mecA-Methicil Res Gene Not Detected DETECTED A (Not Detect) Streptococcus sp PCR Not Detected Not Detected (Not Detect) Group A Strep DNA Not Detected Not Detected (Not Detect) Group B Strep (PCR) Not Detected Not Detected (Not Detect) Strep pneumoniae (PCR) Not Detected Not Detected (Not Detect) P. aeruginosa (PCR) Not Detected Not Detected (Not Detect) Jonh/B-Vanco Res Genes N/A N/A (Not Detect) KPC (blaKPC) Detect PCR N/A N/A (Not Detect) Exam - Constitutional Vitals: Temp Pulse Resp BP Pulse Ox 98.3 F 90 16 159/83 98 03/15/17 07:24 03/15/17 07:24 03/15/17 07:24 03/15/17 07:24 03/15/17 07:24 General appearance: cooperative, morbidly obese, no acute distress - Head Head exam: Present: atraumatic, normal inspection, normocephalic - Eye Eye exam: Present: EOMI, normal appearance, PERRL Pupils: Present: normal accommodation Additional comments: No subconjunctival hemorrhage noted. - ENT ENT exam: Present: mucous membranes moist - Neck Neck exam: Present: normal inspection - Respiratory Respiratory exam: Present: CTAB. Absent: rales, respiratory distress, rhonchi, wheezes - Cardiovascular Cardiovascular exam: Present: RRR, +S1, +S2 - GI/Abdominal GI/Abdominal exam: Present: normal bowel sounds, soft. Absent: distended, tenderness - Extremities Exam Extremities exam: Present: normal inspection. Absent: joint swelling, pedal edema, tenderness Additional comments: Right foot dressing C/D/I. - Back Exam Back exam: Present: normal inspection. Absent: paraspinal tenderness, vertebral tenderness - Neurological Exam Neurological exam: Present: alert, oriented X3, no focal deficits - Psychiatric Psychiatric exam: Present: normal affect, normal mood - Skin Skin exam: Present: dry, intact, normal color, warm Additional comments: No endocarditis stigmata noted. Consult Discharge Plan - Plan Referrals: Suresh Mendoza MD [Primary Care Provider] - 03/19/17 1:15 pm (web request sent on 03/05/17) Rosalee Colby CNP [Advanced Practice Nurse] - 03/28/17 8:40 am
--- NOTE | 2017-03-15 10:53 | Nephrology Progress Note ---
Date of Encounter: 03/15/17 Time of Encounter: 10:51 - Assessment and Plan (1) ESRD (end stage renal disease) on dialysis Current Visit: No Status: Chronic HD MWF Renal diet Adjust medications for renal function. Dialysis after placement of a tunneled line planned for today. Patient received a line holiday for line sepsis. (2) Anemia in chronic illness Current Visit: No Status: Chronic hemoglobin stable monitor for bleeding. (3) Diabetes Current Visit: No Status: Chronic per primary team. Qualifiers: Diabetes mellitus type: type 2 Diabetes mellitus complication status: with neurologic complications Diabetes mellitus complication detail: with polyneuropathy Diabetes mellitus intermediate manager insulin use: with assisted use Qualified Code(s): E11.42 - Type 2 diabetes mellitus with diabetic polyneuropathy; Z79.4 - residential (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; Z79.4 - residential ( 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; Z79.4 - intermediate manager (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; Z79.4 - intermediate manager (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 (4) Diabetic foot ulcer Current Visit: No Status: Chronic recommend wound care consult Qualifiers: Diabetes mellitus type: type 2 Laterality: right Qualified Code(s): E11.621 - Type 2 diabetes mellitus with foot ulcer; L97.519 - Non-pressure chronic ulcer of other part of right foot with unspecified severity (5) Morbid obesity with BMI of 45.0-49.9, adult Current Visit: No Status: Chronic Outpatient management. (6) Sepsis Current Visit: Yes Status: Resolved Per primary team. Seems to have resolved. Qualifiers: Sepsis type: methicillin susceptible Staphylococcus aureus Qualified Code(s ): A41.01 - Sepsis due to Methicillin susceptible Staphylococcus aureus Subjective Principal diagnosis: ESRD Interval history: Patient in with fever/sepsis possibly secondary to line infection. She has improved with antibiotics with resolution of her leukocytosis and now afebrile. Her most recent blood cultures are negative. She anticipates getting a tunneled line at the time of my evaluation. Objective - Vital Signs Vital signs: Vital Signs Temp Pulse Resp BP Pulse Ox 03/15/17 07:24 98.3 F 90 16 159/83 98 03/15/17 04:51 98.3 F 87 16 153/84 98 03/15/17 00:20 98.6 F 95 16 143/79 95 03/14/17 20:33 16 96 03/14/17 20:10 98.1 F 94 17 157/84 98 03/14/17 15:42 90 15 157/72 99 03/14/17 11:23 98.1 F 92 16 159/82 98 Intake and Output 03/14/17 03/15/17 03/15/17 23:59 07:59 15:59 Intake Total 240 / 240 Output Total 0 / 0 Balance 240 / 240 Intake: Oral 240 / 240 Output: Urine 0 / 0 Other: Meal Dinner Percent of Meal Consumed 75% Blood Glucose* 236 160 - General Appearance General appearance: Present: well-developed, well-nourished, obese EENT: Present: ATNC Neck: Present: supple Respiratory: Present: clear Cardiology: Present: no edema, regular rate, regular rhythm Gastrointestinal: Present: obese Integumentary: Present: warm and dry Neurologic: Present: alert and oriented x3 Musculoskeletal: Present: no cyanosis Psychiatric: Present: mood/affect appropriate - Lab 03/15/17 09:05 03/15/17 09:05 Most recent lab results Calcium 8.6 mg/dL (8.6-10.8) 03/15/17 09:05 Phosphorus 3.4 mg/dL (2.3-4.7) 03/01/17 15:15 Magnesium 1.7 mg/dL (1.6-2.6) 03/04/17 04:36 Consult Discharge Plan - Plan Referrals: Suresh Mendoza MD [Primary Care Provider] - 03/19/17 1:15 pm (web request sent on 03/05/17) Rosalee Colby CNP [Advanced Practice Nurse] - 03/28/17 8:40 am
[2017-03-15] MEDS ORDERED: Heparin 1,000 UNITS/500 mL NS 500 ML ONE (14:14)
[2017-03-15] MEDS ORDERED: *HR* Midazolam HCl 2 MG/2 ML VIAL IVP PRN (14:56)
[2017-03-15] MEDS ORDERED: *HR* FentaNYL (PF) 100 MCG/2 ML VIAL IVP PRN (14:56)
[2017-03-15] MEDS ORDERED: Clindamycin 600 MG/50 ML 600 MG/50 ML IV.SOLN IVPB STA (14:56)
[2017-03-15] MEDS ORDERED: 0.9 % Sodium Chloride 500 ML ONE (15:10)
--- NOTE | 2017-03-15 16:10 | IR Procedure Note ---
Date of procedure: 03/15/17 Consent Obtained: Written consent Timeout: Correct patient and procedure verified, Correct site verified, Time out performed, Skin prep completed Local anesthetic: Lidocaine 1% Indications: Bacteremia, abdominal wound, ESRD Procedure Performed: Tunneled HD catheter and tunneled small bore catheter removal. Site/Technique: RIJV used for access Results/Findings: Both working well. May use immediately. Estimated blood loss (cc): 3 Complications: None; Tolerated procedure well Post Procedure Treatment Plan: Monitoring in dialysis
--- NOTE | 2017-03-15 16:57 | Discharge Summary ---
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 Qualified Code(s): E11.42 - Type 2 diabetes mellitus with diabetic polyneuropathy; Z79.4 - assisted (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; Z79.4 - assisted ( 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; Z79.4 - assisted (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; Z79.4 - assisted (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 (4) Hypertension Priority: Secondary Status: Chronic Qualifiers: Hypertension type: essential hypertension Qualified Code(s): I10 - Essential (primary) hypertension - Discharge Medications Home Medications: Aspirin Enteric Coated [Aspirin EC] 81 mg PO DAILY 04/08/15 [History] Multivitamin [Multi-Day Vitamins] 1 tab PO DAILY 04/08/15 [History] Simvastatin [Zocor] 40 mg PO DAILY 04/08/15 [History] Omeprazole [PriLOSEC] 20 mg PO DAILY 12/06/15 [History] ALPRAZolam [Xanax 0.5 MG Tablet] 0.5 mg PO TID PRN 06/27/16 [History] Tizanidine HCl 2 mg PO TID PRN 06/27/16 [History] Budesonide/Formoterol 160/4.5 [Symbicort 160/4.5] 2 puff IH BIDR #1 inhaler [Rx] Ergocalciferol (VITAMIN D2) [Vitamin D2] 50,000 unit PO QWEEK 01/16/17 [History] Insulin DETEMIR [Levemir Flextouch] 10 unit SQ BID 01/16/17 [History] Iron Polysaccharide Complex [Ferrex 150] 150 mg PO DAILY 01/16/17 [History] Metoprolol [Lopressor] 112.5 mg PO BID 01/16/17 [History] [place]-3/Dha/Epa/Fish Oil [Fish Oil 1,000 mg Softgel] 4 cap PO DAILY 01/16/17 [ History] Losartan Potassium [Cozaar] 100 mg PO DAILY #30 01/21/17 [Rx] Calcium Acetate [Phos-LO] 667 mg PO TIDWM 02/25/17 [History] Furosemide [Lasix] 40 mg PO BID 02/25/17 [History] Insulin LISPRO [Humalog Kwikpen U-100] 5 unit SQ TID PRN 02/25/17 [History] NIFEdipine [Nifedipine ER] 60 mg PO DAILY 02/25/17 [History] Allergies/Adverse Reactions: 3 Allergy/AdvReac Type Severity Reaction Status Date / Time amitriptyline Allergy feels drunk Verified 02/24/17 22:56 amlodipine Allergy See Verified 02/24/17 22:56 Comments Amoxicillin [From Augmentin] Allergy Itching Verified 02/24/17 22:56 clavulanic acid Allergy Itching Verified 02/24/17 22:56 [From Augmentin] gabapentin [From Neurontin] Allergy make me Verified 02/24/17 22:56 sick at my stomach pregabalin [From Lyrica] Allergy Swelling Verified 02/24/17 22:56 of Lip/Tongue/Throat CAROLYN Inhibitors AdvReac Palpitation Verified 02/24/17 22:56 s fenofibrate [From Tricor] AdvReac Drowsy Verified 02/24/17 22:56 Procedures/tests Complete & Pending: Procedures Performed prior 72 hours Category Date Time Status IR cvc insert >=5 years [IR] Routine IR 03/15/17 Taken IR 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 [IR] Routine IR 03/15/17 Taken IR us guide needle place [IR] Routine IR 03/15/17 Taken IR us guide needle place [IR] Routine IR 03/15/17 Taken Date of admission: 03/01/17 20:12 Primary care physician: Suresh Mendoza MD Consults: 03/02/17 00:24 Consult to Podiatry [CONS] Routine Consulting Provider: [facility] Reason for Consult: ulcer to the lateral aspect of the right foot/ ankle Time Notified: 00:25 Call Completed: No 03/03/17 06:35 Consult to Invasive Line Access Team [CONS] Routine Reason for Consult: Limited IV access Line Type: EPIV 03/03/17 11:03 Consult to Interventional Radiology [CONS] Routine Consulting Provider: Radiology Interventional Cols Reason for Consult: Patient needs exchange of her tunneled line. both infection and non functioning. Call Completed: No 03/04/17 10:00 Consult to Dialysis [CONS] ONCE 03/06/17 07:45 Consult to Dialysis [CONS] ONCE 03/07/17 10:26 Consult to Infectious Diseases [CONS] Routine Consulting Provider: Infectious Disease [facility] Reason for Consult: blood culture GPC, many days now. MRSA on 1 culture, but may be contaminate Call Completed: Yes 03/08/17 08:00 Consult to Dialysis [CONS] ONCE 03/11/17 08:00 Consult to Dialysis [CONS] ONCE 03/13/17 08:15 Consult to Dialysis [CONS] ONCE 03/15/17 05:55 Consult to Interventional Radiology [CONS] Routine Consulting Provider: Radiology Interventional Cols Reason for Consult: Please evaluate for replacement of the Permacath. BCx have been No Growth; See I.D. notes. Thank you in advance. 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 While at dialysis the day of admission, she was found to have a fever of 103. Patient had some difficulty with her hemodialysis as she had to have her dialysis port replaced 3 times this month. She stated that she has noticed some redness around her chest port but no tenderness or drainage. She also has a chronic ulcer to lateral aspect of her right foot/ankle. She has been seen by Dr. Winn and had debridement last month. Patient was admitted to the medical floor for further management. The patients hospital stay she was found to be bacteremic with Staphylococcus aureus. Patient was treated with daptomycin and dialysis port was removed. Source of bacteria could not be identified and there were concerns for possible heart valve vegetations and recommendations for MARIO were made but patient refused even after discussing the risk and benefits of procedure to rule out endocarditis. The decision was made with infectious disease to treat patient prophylactically with a 6 week course of daptomycin. Repeat blood cultures are negative and patient has been afebrile without leukocytosis. Tunneled line catheter was placed day of discharge. She will be discharged to continue a 6 week course of daptomycin and to follow- up with primary care provider. - Time Spent with Patient Total time spent providing and/or coordinating discharge services: Less than 30 minutes - Constitutional Vitals: Temp Pulse Resp BP Pulse Ox 98.3 F 98 17 172/95 99 03/15/17 11:48 03/15/17 15:24 03/15/17 15:24 03/15/17 11:48 03/15/17 15:24 General appearance: Present: A&O X 3, obese, answers questions appropriately - Respiratory Respiratory exam: Present: CTAB. Absent: accessory muscle use, rales, rhonchi, wheezes - Cardiovascular Cardiovascular exam: Present: RRR, +S1, +S2. Absent: diastolic murmur, gallop, rubs, systolic murmur
[2017-03-15] MEDS: NIFEdipine XL (24 HR) 60 MG TAB.ER.24 PO SCH (19:45)
[2017-03-15] MEDS: DAPTOmycin 1,000 MG in 0.9 % Sodium Chloride 100 ML IVPB SCH (21:26)
[2017-03-15 21:46] VITALS: BP 160/88
== END 2017-03-15 22:30 | disposition home or self-care (01) | DRG 710 ==
LOC: EMEROO 14:26 → 2ANU 14:26 → SUATTDRO 20:12
PROVIDERS: ADMIT Student in an Organized Health Care Education/Training Program; ATTEND Hospitalist

== ENCOUNTER 2017-06-09 19:16 | Observation (INO) ==
--- NOTE | 2017-06-09 19:53 | Emergency Department Note ---
Disposition Clinical Impression: Near syncope Arthralgia Qualifiers: Joint pain location: unspecified Qualified Code(s): M25.50 - Pain in unspecified joint Disposition: Admitted As Inpatient Condition: Fair Referrals: Suresh Mendoza MD [Primary Care Provider] - Forms: ED Satisfaction Letter Time of Disposition: 21:53 General Adult HPI - General Chief complaint: ED Dizziness Stated complaint: weakness Time Seen by Provider: 06/09/17 19:44 Source: patient Mode of arrival: ambulatory Limitations: no limitations Nursing Notes Reviewed: Yes Vital Signs Reviewed: Yes - History of Present Illness HPI Narrative: 57-year-old female who comes in complaining of dizziness lightheaded and felt like she was going pass out. States she had a new fistula placed in her left arm back in April. She did squeeze the very end of the incision and there was some period of material came out. Pt Subjective Complaint: Dizziness lightheadedness Onset (ago): Just [employer]ETING [employer]AD Location: other (Generalized bone) Radiation: non-radiation Pain Severity: moderate Pain Scale: 9 Quality: aching Consistency: constant Improves with: nothing Worsens with: nothing Treatments Prior to Arrival: none - Related Data Home Medications Medication Instructions Recorded Confirmed Aspirin Enteric Coated [Aspirin EC] 81 mg PO DAILY 04/08/15 04/10/17 Multivitamin [Multi-Day Vitamins] 1 tab PO DAILY 04/08/15 04/10/17 Simvastatin [Zocor] 40 mg PO DAILY 04/08/15 04/10/17 Omeprazole [PriLOSEC] 20 mg PO DAILY 12/06/15 04/10/17 ALPRAZolam [Xanax 0.5 MG Tablet] 0.5 mg PO TID PRN 06/27/16 04/10/17 Tizanidine HCl 2 mg PO TID PRN 06/27/16 04/10/17 Ergocalciferol (VITAMIN D2) 100,000 unit PO QWEEK 01/16/17 04/10/17 [Vitamin D2] Insulin DETEMIR [Levemir Flextouch] 10 unit SQ BID 01/16/17 04/10/17 Iron Polysaccharide Complex 150 mg PO DAILY 01/16/17 04/10/17 [Ferrex 150] Metoprolol [Lopressor] 112.5 mg PO BID 01/16/17 04/10/17 [place]-3/Dha/Epa/Fish Oil [Fish Oil 4 cap PO DAILY 01/16/17 04/10/17 1,000 mg Softgel] Calcium Acetate [Phos-LO] 667 mg PO TIDWM 02/25/17 04/10/17 Furosemide [Lasix] 40 mg PO BID 02/25/17 04/10/17 Insulin LISPRO [Humalog Kwikpen 5 unit SQ TID 02/25/17 04/10/17 U-100] NIFEdipine [Nifedipine ER] 60 mg PO DAILY 02/25/17 04/10/17 Renal Vitamin [Renal Caps Softgel] 1 mg PO DAILY 04/10/17 04/10/17 Vancomycin [Vancocin] 1 each IV AD 04/15/17 04/15/17 Previous Rx's Medication Instructions Recorded Budesonide/Formoterol 160/4.5 2 puff IH BIDR #1 inhaler 07/05/16 [Symbicort 160/4.5] Losartan Potassium [Cozaar] 100 mg PO DAILY #30 01/21/17 Allergies Allergy/AdvReac Type Severity Reaction Status Date / Time amitriptyline Allergy feels drunk Verified 04/10/17 08:42 amlodipine Allergy See Verified 04/10/17 08:42 Comments Amoxicillin [From Augmentin] Allergy Itching Verified 04/10/17 08:42 clavulanic acid Allergy Itching Verified 04/10/17 08:42 [From Augmentin] gabapentin [From Neurontin] Allergy make me Verified 04/10/17 08:42 sick at my stomach pregabalin [From Lyrica] Allergy Swelling Verified 04/10/17 08:42 of Lip/Tongue/Throat CAROLYN Inhibitors AdvReac Palpitation Verified 04/10/17 08:42 s fenofibrate [From Tricor] AdvReac See Verified 04/10/17 08:42 Comments All systems ED: reviewed and negative except as stated. Constitutional: Denies: fever, chills, weakness, weight change Eyes: Denies: eye pain, eye discharge, vision change ENT ED: Denies: ear pain, throat pain, dental pain, hearing loss, epistaxis, congestion, dysphagia Cardiovascular: Denies: chest pain, palpitations, dyspnea on exertion, edema, syncope Respiratory: Denies: cough, dyspnea, wheezes, hemoptysis, stridor Gastrointestinal: Denies: abdominal pain, nausea, vomiting, diarrhea, constipation, hematemesis, melena, hematochezia Genitourinary: Denies: dysuria, frequency, hematuria, discharge Musculoskeletal: Reports: arthralgia. Denies: back pain, neck pain, myalgia Integumentary: Denies: rash, abrasion, lesions Neurological: Denies: headache, weakness, numbness, paresthesias, confusion, abnormal gait, vertigo Psychiatric: Denies: anxiety, depression, suicidal thoughts, homicidal thoughts , auditory hallucinations, visual hallucinations Endocrine: Denies: fatigue Hematological/Lymphatic: Denies: easy bleeding, easy bruising Allergic/Immunologic: Denies: facial swelling, urticaria Past Medical History - Past Medical History Medical history: Reports: arthritis, asthma, CHF, CVA, diabetes, dialysis, fibromyalgia, GERD, hyperlipidemia, hypertension, myocardial infarction, renal disease, other Surgical history: Reports: , orthopedic, other (Right ankle debridement ) Psychiatric history: Reports: anxiety, depression CAMOUFLAGE SPECIALIST history: Reports: no CAMOUFLAGE SPECIALIST history - Social History Smoking Status: Former smoker Smokeless Tobacco Status: No Alcohol use: Reports: none Drug use: Reports: none Physical Exam - General Limitations: no limitations General appearance: alert - Head Head exam: atraumatic, normocephalic, normal inspection - Eye Eye exam: Present: normal appearance, PERRL, EOMI - ENT ENT exam: normal exam, normal oropharynx, mucous membranes moist - Neck Neck exam: Present: normal inspection, full ROM, trachea midline - Chest Chest inspection: Present: normal inspection, symmetric chest wall rise - Respiratory Respiratory exam: Present: normal lung sounds bilaterally - Cardiovascular Cardiovascular exam: Present: regular rate, normal rhythm, normal heart sounds - Abdominal Exam Abdominal exam: Present: soft, Non-Tender. Absent: tenderness, distention, guarding, rebound, rigidity - Extremities Exam Extremities exam: Present: normal inspection, full ROM. Absent: tenderness, pedal edema - Expanded Upper Extremity Exam Hand exam: Present: other (Incision site on her left radial wrist shows some slight erythema at the distal aspect and this is where the purulent material was drained from.) - Expanded Lower Extremity Exam Neurovascular/Tendon exam: Absent: motor deficit, sensory deficit, tendon deficit Gait: observed and normal - Back Exam Back exam: Present: normal inspection, full ROM. Absent: tenderness - Neurological Exam Neurological exam: Present: alert. Absent: motor sensory deficit - Psychiatric Psychiatric exam: Present: normal affect, normal mood Course - Reevaluation(s) Reevaluation #1: 57-year-old female with a history of renal failure on dialysis who comes in with dizziness and lightheaded felt like she is going to pass out. Has generalized bone pain that she has been seems to be getting worse. We'll admit for observation. Time: 21:54 - Consultations Consultation #1: , admit. Time: 23:03 Vital Signs Temperature 98.8 F 06/09/17 19:28 Pulse Rate 54 06/09/17 19:28 Respiratory Rate 12 06/09/17 19:28 Blood Pressure 113/68 06/09/17 19:28 O2 Sat by Pulse Oximetry 98 06/09/17 19:28 Temperature 98.8 F 06/09/17 19:28 Pulse Rate 69 06/09/17 22:19 Respiratory Rate 16 06/09/17 22:19 Blood Pressure 128/62 06/09/17 22:19 O2 Sat by Pulse Oximetry 99 06/09/17 22:19 Oxygen Delivery Oxygen Delivery Room Air Medical Decision Making - Lab Data Lab results reviewed: Yes I reviewed the patient's lab results. Result diagrams: 06/09/17 20:41 06/09/17 20:41 Lab Results 06/09/17 06/09/17 06/09/17 Range/Units 20:41 20:41 20:41 WBC 11.2 H (4.3-11.1) K/mcL RBC 3.55 L (3.82-4.97) M/mcL Hgb 10.0 L (11.5-15.4) g/dL Hct 31.5 L (35.3-44.9) % MCV 88.7 (83.0-100.0) fL MCH 28.2 (28.0-33.3) pg MCHC 31.7 (31.6-35.5) g/dL RDW 15.7 H (11.5-14.5) % Plt Count 249 (140-400) K/mcL MPV 10.4 (9.4-12.4) fL Immature Gran % 0.8 (0-4) % Seg Neutrophils % 70.4 % Lymphocytes % 20.6 % Monocytes % 5.2 % Eosinophils % 2.6 % Basophils % 0.4 % Neutrophils # 7.9 (1.6-8.9) K/mcL Lymphocytes # 2.3 (0.6-4.6) K/mcL Monocytes # 0.6 (0.0-1.3) K/mcL Eosinophils # 0.3 (0.0-0.6) K/mcL Basophils # 0.0 (0.0-0.2) K/mcL Sodium 134 L (136-145) mEq/L Potassium 4.8 (3.5-5.1) mEq/L Chloride 100 (98-107) mEq/L Carbon Dioxide 21 L (23-29) mEq/L BUN 38 H (6-20) mg/dL Creatinine 6.29 H (0.60-1.20) mg/dL Est GFR ( Amer) 8 L (> 60) Est GFR (Non-Af Amer) 7 L (> 60) BUN/Creatinine Ratio 6 (6-26) Glucose 296 H (70-105) mg/dL Calculated Osmolality 298 (280-300) Lactic Acid 1.9 (0.5-2.2) mmol/L Calcium 9.1 (8.6-10.3) mg/dL Troponin I (< 0.04) ng/mL 06/09/17 Range/Units 20:41 WBC (4.3-11.1) K/mcL RBC (3.82-4.97) M/mcL Hgb (11.5-15.4) g/dL Hct (35.3-44.9) % MCV (83.0-100.0) fL MCH (28.0-33.3) pg MCHC (31.6-35.5) g/dL RDW (11.5-14.5) % Plt Count (140-400) K/mcL MPV (9.4-12.4) fL Immature Gran % (0-4) % Seg Neutrophils % % Lymphocytes % % Monocytes % % Eosinophils % % Basophils % % Neutrophils # (1.6-8.9) K/mcL Lymphocytes # (0.6-4.6) K/mcL Monocytes # (0.0-1.3) K/mcL Eosinophils # (0.0-0.6) K/mcL Basophils # (0.0-0.2) K/mcL Sodium (136-145) mEq/L Potassium (3.5-5.1) mEq/L Chloride (98-107) mEq/L Carbon Dioxide (23-29) mEq/L BUN (6-20) mg/dL Creatinine (0.60-1.20) mg/dL Est GFR ( Amer) (> 60) Est GFR (Non-Af Amer) (> 60) BUN/Creatinine Ratio (6-26) Glucose (70-105) mg/dL Calculated Osmolality (280-300) Lactic Acid (0.5-2.2) mmol/L Calcium (8.6-10.3) mg/dL Troponin I 0.03 (< 0.04) ng/mL - Radiology Data Radiology results reviewed: Yes I reviewed the patient's radiology results. Head CT 06/09/17 19:46 IMPRESSION: No acute intracranial abnormality. D/ / Alexandre Rosa MD / Alexandre Rosa MD Interpreting Provider: Alexandre Rosa MD - EKG Data EKG #1 EKG attestation: Yes I reviewed and interpreted this EKG. EKG shows normal: sinus rhythm Rate: bradycardia Rhythm: NSR Interpretation: no acute changes NIH Stroke Scale - Level of Consciousness LOC: Alert - LOC Questions LOC Questions: Answers both correctly - LOC Commands LOC Commands: Performs both correctly - Best Gaze Best Gaze: Normal - Visual Visual: No visual loss - Facial Palsy Facial Palsy: Normal - Motor Arms Motor Arm-Left: No drift for 10 seconds Motor Arm-Right: No drift for 10 seconds - Motor Legs Motor Leg-Left: No drift for 5 seconds Motor Leg-Right: No drift for 5 seconds - Limb Ataxia Limb Ataxia: Normal, No Ataxia - Sensory Sensory: Normal - Best Language Best Language: No aphasia - Dysarthria Dysarthria: Normal - Extinction and Inattention Extinction and Inattention: Normal - NIHSS Total Score NIHSS Total Score: 0
[2017-06-09 20:47] LABS: Basophils % 0.4 %; Eosinophils # 0.3 K/mcL (0.0-0.6); Eosinophils % 2.6 %; Hematocrit 31.5 % (35.3-44.9); Immature Granulocytes % 0.8 % (0-4); Lymphocytes # 2.3 K/mcL (0.6-4.6); Lymphocytes % 20.6 %; Mean Corpuscular HGB Conc 31.7 g/dL (31.6-35.5); Mean Corpuscular Hemoglobin 28.2 pg (28.0-33.3); Mean Corpuscular Volume 88.7 fL (83.0-100.0); Mean Platelet Volume 10.4 fL (9.4-12.4); Monocytes # 0.6 K/mcL (0.0-1.3); Monocytes % 5.2 %; Neutrophils # 7.9 K/mcL (1.6-8.9); Platelet Count 249 K/mcL (140-400); Red Blood Count 3.55 M/mcL (3.82-4.97); Red Cell Distribution Width 15.7 % (11.5-14.5); Segmented Neutrophils % 70.4 %
[2017-06-09 21:03] LABS: Calcium 9.1 mg/dL (8.6-10.3); Potassium 4.8 mEq/L (3.5-5.1)
[2017-06-10] MEDS ORDERED: Acetaminophen 325 MG TABLET PO PRN (00:54)
[2017-06-10] MEDS ORDERED: Naloxone 0.4 MG/ML INJ IVP PRN (00:54)
[2017-06-10] MEDS ORDERED: *HR* OxyCODONE Immed Rel 5 MG TABLET PO PRN (00:54)
[2017-06-10] MEDS ORDERED: D5% in Water 1,000 ML IVC PRN (00:57)
[2017-06-10] MEDS ORDERED: *HR* Dextrose 50 % in Water (Syg) 50 ML SYRINGE IVP PRN (00:57)
[2017-06-10] MEDS ORDERED: Dextrose Gel 15 GM/37.5 ML TUBE PO PRN ×2 (00:57)
--- NOTE | 2017-06-10 01:10 | Internal Med History&Physical ---
Date of Encounter: 06/10/17 Time of Encounter: 00:20 Assessment and Plan (1) Weakness Current visit: Yes Status: Acute Etiology is undetermined. He can take complaining of subjective fever. She has dizziness and lightheaded. - Patient has permacath for hemodialysis. First of all need to rule out infection. Blood culture was drawn from peripheral vein and central catheters. - Head CT negative. Place patient on echo, duplex carotid, continuous cardiac monitoring, and orthostatic vitals. - Check TSH, vitamin B12, folic acid, and morning cortisol level. - PTOT evaluation (2) Superficial incisional infection of surgical site Current visit: Yes Status: Acute Patient has left forearm AV fistula surgery. Has superficial infection. We will place patient on topical Bactroban and IV doxycycline. Qualifiers: Encounter type: initial encounter Qualified Code(s): T81.4XXA - Infection following a procedure, initial encounter (3) Diabetes Current visit: No Status: Chronic Continue basal and a sliding single insulin Qualifiers: Diabetes mellitus type: type 2 Diabetes mellitus complication status: with neurologic complications Diabetes mellitus complication detail: with polyneuropathy Diabetes mellitus vermin exterminator insulin use: with nursing home use Qualified Code(s): E11.42 - Type 2 diabetes mellitus with diabetic polyneuropathy; Z79.4 - [facility] (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; Z79.4 - extermination inspector ( 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; Z79.4 - extermination inspector (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; Z79.4 - [facility] (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 (4) Hypertension Current visit: No Status: Chronic Continue home medications for hypertension. Hydralazine as needed IV Qualifiers: Hypertension type: essential hypertension Qualified Code(s): I10 - Essential (primary) hypertension (5) DVT prophylaxis Current visit: No Status: Acute Heparin subcutaneously (6) Morbid obesity Current visit: No Status: Chronic Need the lifestyle modification (7) ESRD (end stage renal disease) on dialysis Current visit: No Status: Chronic Continue hemodialysis. Consult nephrology Internal Medicine - H&P: HPI Chief complaint: Weakness Admitted From: Home Plans for Post Hospital Care: Home History of present illness: Ms. Frederick is a 57 year old female with history of diabetes, hypertension, CHF , CAD, end-stage renal disease on hemodialysis, presented to ER for chronic weakness since last February. Patient said she is weak all the time, has subjective fever with chill. On and off cough. Patient has dizziness and lightheaded. Patient denies fall. She denies urination symptoms or diarrhea. Patient has on and off runny nose, mild shortness of breath. She denies chest pain. Patient had AV fistula surgery on 05/01/17 and was found the incision site seems infected. Patient was admitted for further management. Past Med Surg Social Fam HX - Past Medical History Medical history: arthritis, asthma, CHF, CVA, diabetes, dialysis, fibromyalgia, GERD, hyperlipidemia, hypertension, myocardial infarction, renal disease, other Psychiatric history: anxiety, depression - Past Surgical History Surgical History: , orthopedic, other - Social History Smoking Status: Former smoker Smokeless Tobacco Status: No Alcohol use: none Drug use: none - Family History Mother Adopted: No Family Member Ethnicity: Non- Living Status: Hx Family Cardiac Disorders: No Hx Family Respiratory Disorders: No Hx Family Cancer: Yes (Lung Ca) Hx Family GI Disorders: No Hx Family Endocrine Disorder: No Hx Family Neuromuscular Disorders: No Hx Family Neurologic Disorders: No Hx Family HEENT Disorders: No Hx Family Autoimmune Disorders: No Father Adopted: No Family Member Ethnicity: Non- Living Status: Hx Family Cardiac Disorders: No Hx Family Respiratory Disorders: Yes Hx Family Cancer: Yes (Lung Ca) Hx Family GI Disorders: No Hx Family Endocrine Disorder: No Hx Family Neuromuscular Disorders: No Hx Family Neurologic Disorders: No Hx Family HEENT Disorders: No Hx Family Autoimmune Disorders: No Internal Medicine - H&P: Meds Aspirin Enteric Coated [Aspirin EC] 81 mg PO DAILY 04/08/15 [History] Multivitamin [Multi-Day Vitamins] 1 tab PO DAILY 04/08/15 [History] Simvastatin [Zocor] 40 mg PO DAILY 04/08/15 [History] Omeprazole [PriLOSEC] 20 mg PO DAILY 12/06/15 [History] ALPRAZolam [Xanax 0.5 MG Tablet] 0.5 mg PO TID PRN 06/27/16 [History] Tizanidine HCl 2 mg PO TID PRN 06/27/16 [History] Budesonide/Formoterol 160/4.5 [Symbicort 160/4.5] 2 puff IH BIDR #1 inhaler [Rx] Ergocalciferol (VITAMIN D2) [Vitamin D2] 100,000 unit PO QWEEK 01/16/17 [History ] Insulin DETEMIR [Levemir Flextouch] 10 unit SQ BID 01/16/17 [History] Iron Polysaccharide Complex [Ferrex 150] 150 mg PO DAILY 01/16/17 [History] Metoprolol [Lopressor] 112.5 mg PO BID 01/16/17 [History] [place]-3/Dha/Epa/Fish Oil [Fish Oil 1,000 mg Softgel] 4 cap PO DAILY 01/16/17 [ History] Losartan Potassium [Cozaar] 100 mg PO DAILY #30 01/21/17 [Rx] Calcium Acetate [Phos-LO] 667 mg PO TIDWM 02/25/17 [History] Furosemide [Lasix] 40 mg PO BID 02/25/17 [History] Insulin LISPRO [Humalog Kwikpen U-100] 5 unit SQ TID 02/25/17 [History] NIFEdipine [Nifedipine ER] 60 mg PO DAILY 02/25/17 [History] Renal Vitamin [Renal Caps Softgel] 1 mg PO DAILY 04/10/17 [History] Vancomycin [Vancocin] 1 each IV AD 04/15/17 [History] 3 Allergy/AdvReac Type Severity Reaction Status Date / Time amitriptyline Allergy feels drunk Verified 04/10/17 08:42 amlodipine Allergy See Verified 04/10/17 08:42 Comments Amoxicillin [From Augmentin] Allergy Itching Verified 04/10/17 08:42 clavulanic acid Allergy Itching Verified 04/10/17 08:42 [From Augmentin] gabapentin [From Neurontin] Allergy make me Verified 04/10/17 08:42 sick at my stomach pregabalin [From Lyrica] Allergy Swelling Verified 04/10/17 08:42 of Lip/Tongue/Throat CAROLYN Inhibitors AdvReac Palpitation Verified 04/10/17 08:42 s fenofibrate [From Tricor] AdvReac See Verified 04/10/17 08:42 Comments All Systems PM: A 10-system review of systems was performed and is negative for pertinent findings except as documented above in the HPI. - Constitutional Vitals: Temp Pulse Resp BP Pulse Ox 98.8 F 69 16 141/74 99 06/09/17 19:28 06/09/17 22:19 06/09/17 23:27 06/09/17 23:27 06/09/17 22:19 General appearance: Present: A&O X 3, no acute distress, answers questions appropriately - Head Head exam: Present: atraumatic, normocephalic - Eye Eye exam: Present: PERRL, conjuntiva pink, sclera anicteric Pupils: Present: PERRL - Neck Neck exam general surgery: Present: supple, trachea midline. Absent: lymphadenopathy - Respiratory Respiratory exam: Present: CTAB. Absent: accessory muscle use, rales, rhonchi, wheezes Additional comments: Permacath is in place on the right side. - Cardiovascular Cardiovascular exam: Present: RRR, +S1, +S2. Absent: diastolic murmur, gallop, rubs, systolic murmur - GI/Abdominal GI/Abdominal exam: Present: normal bowel sounds, soft, no peritoneal signs. Absent: distended, tenderness - Extremities Exam Extremities exam: Present: pedal edema (Bilateral up to knees), warm, radial pulses palpable and symmetrical. Absent: calf tenderness, cyanotic - Neurological Exam Neurological exam: Present: CN II-XII intact, oriented X3, no focal deficits. Absent: pronater drift, facial droop, speech deficit - Skin Skin exam: Present: dry, intact Internal Med - H&P Results - Labs CBC & Chem 7: 06/09/17 20:41 06/09/17 20:41 - EKG Data -: EKG Interpreted by Myself EKG shows normal: sinus rhythm Rate: normal
[2017-06-10] MEDS: Insulin DETEMIR 100 UNIT/ML X5UNITS SQ SCH ×2 (01:46→08:50)
[2017-06-10] MEDS: Doxycycline 100 MG in 0.9 % Sodium Chloride Mini Bag 100 ML IVPB SCH ×2 (05:00→17:12)
[2017-06-10] MEDS: *HR* Heparin 5,000 UNIT/ML VIAL SQ SCH ×2 (05:00→17:16)
[2017-06-10 05:50] LABS: Basophils % 0.5 %; Eosinophils # 0.3 K/mcL (0.0-0.6); Eosinophils % 3.6 %; Hematocrit 27.7 % (35.3-44.9); Immature Granulocytes % 0.8 % (0-4); Lymphocytes # 2.4 K/mcL (0.6-4.6); Lymphocytes % 28.2 %; Mean Corpuscular HGB Conc 32.5 g/dL (31.6-35.5); Mean Corpuscular Hemoglobin 28.6 pg (28.0-33.3); Mean Corpuscular Volume 87.9 fL (83.0-100.0); Mean Platelet Volume 10.4 fL (9.4-12.4); Monocytes # 0.5 K/mcL (0.0-1.3); Neutrophils # 5.3 K/mcL (1.6-8.9); Platelet Count 200 K/mcL (140-400); Red Blood Count 3.15 M/mcL (3.82-4.97); Red Cell Distribution Width 15.9 % (11.5-14.5); Segmented Neutrophils % 60.9 %
[2017-06-10 06:05] LABS: Calcium 8.9 mg/dL (8.6-10.3); Magnesium 1.7 mg/dL (1.6-2.6); Potassium 4.7 mEq/L (3.5-5.1)
[2017-06-10] MEDS ORDERED: 0.9 % Sodium Chloride 250 ML IVC PRN (07:07)
[2017-06-10] MEDS: Budesonide/Formoterol 160/4.5 MDI IH SCH ×2 (08:09→20:13)
--- NOTE | 2017-06-10 08:34 | Nephrology Consult Note ---
Date of Encounter: 06/10/17 Time of Encounter: 08:32 Assessment and Plan (1) Problem with dialysis access Current Visit: Yes Status: Acute Purulent material noted at her left forearm over her recently placed dialysis fistula. Her LUE fistula was placed in April [address] Boyle in [place]. Patient reports multiple HD catheters replacements due to line complications, and recently completing 6 weeks of IV antibiotics for bacteremia. Left upper extremity ultrasound pending to evaluate soft tissues and to rule out extension into vasculature Blood and wound cultures pending Agree with antibiotics Qualifiers: Encounter type: initial encounter Qualified Code(s): T82.898A - Other specified complication of vascular prosthetic devices, implants and grafts, initial encounter (2) ESRD (end stage renal disease) on dialysis Current Visit: No Status: Chronic Patient on HD every MWF since December 2016 Patient's current weight is 109kg, dry weight is 106kg Patient receives HD every MWF at [facility], last HD treatment was on 06/07/17, and her custom seamstress is Dr. Diya Stratton. Continue HD as scheduled MWF Avoid nephrotoxins (3) Anemia in chronic illness Current Visit: No Status: Chronic Chronic anemia in the setting of ESRD Continue Epogen administration during HD Iron studies, Vitamin D levels pending Increased Folate 43.0 Decreased Vitamin B12 243 (4) Foot ulcer due to secondary DM Current Visit: No Status: Chronic Management per primary team (5) Poorly controlled diabetes mellitus Current Visit: No Status: Acute Management per primary team (6) Morbid obesity with BMI of 45.0-49.9, adult Current Visit: No Status: Chronic Management per primary team History of Present Illness - Reason for Consult Consult date: 06/10/17 end stage renal disease Requesting physician: Kin Rubin - Chief Complaint Weakness - History of Present Illness Ms. Frederick is a 57yo patient with a PMH of anemia, DM, chronic diabetic foot ulcers, and ESRD with HD every MWF who presented to the ED due to worsening weakness and noticing purulent material from her left forearm over her recently placed dialysis fistula. She reports associated chills, SOB, and lightheadedness. Patient reports starting HD in December 2016 multiple HD catheters replacements due to line complications, and recently completing 6 weeks of IV antibiotics for bacteremia. Her LUE fistula was placed in April [address] Boyle in [place]. She receives HD every MWF at [facility] in [place], last treatment was on 06/07/17, and her custom seamstress is Dr. Diya Stratton. Past Med Surg Social Fam HX - Past Medical History Medical history: arthritis, asthma, CHF, CVA, diabetes, dialysis, fibromyalgia, GERD, hyperlipidemia, hypertension, myocardial infarction, renal disease, other Psychiatric history: anxiety, depression - Past Surgical History Surgical History: , orthopedic, other - Social History Smoking Status: Former smoker Smokeless Tobacco Status: No Alcohol use: none Drug use: none - Family History Mother Adopted: No Family Member Ethnicity: Non- Living Status: Hx Family Cardiac Disorders: No Hx Family Respiratory Disorders: No Hx Family Cancer: Yes (Lung Ca) Hx Family GI Disorders: No Hx Family Endocrine Disorder: No Hx Family Neuromuscular Disorders: No Hx Family Neurologic Disorders: No Hx Family HEENT Disorders: No Hx Family Autoimmune Disorders: No Hx Family Medical Disorders: Yes (Kidney problems) Father Adopted: No Family Member Ethnicity: Non- Living Status: Hx Family Cardiac Disorders: No Hx Family Respiratory Disorders: Yes Hx Family Cancer: Yes (Lung Ca) Hx Family GI Disorders: No Hx Family Endocrine Disorder: No Hx Family Neuromuscular Disorders: No Hx Family Neurologic Disorders: No Hx Family HEENT Disorders: No Hx Family Autoimmune Disorders: No Medications and Allergies Aspirin Enteric Coated [Aspirin EC] 81 mg PO DAILY 04/08/15 [History] Multivitamin [Multi-Day Vitamins] 1 tab PO DAILY 04/08/15 [History] Simvastatin [Zocor] 40 mg PO DAILY 04/08/15 [History] Omeprazole [PriLOSEC] 20 mg PO DAILY 12/06/15 [History] ALPRAZolam [Xanax 0.5 MG Tablet] 0.5 mg PO TID PRN 06/27/16 [History] Tizanidine HCl 2 mg PO TID PRN 06/27/16 [History] Budesonide/Formoterol 160/4.5 [Symbicort 160/4.5] 2 puff IH BIDR #1 inhaler [Rx] Ergocalciferol (VITAMIN D2) [Vitamin D2] 100,000 unit PO QWEEK 01/16/17 [History ] Insulin DETEMIR [Levemir Flextouch] 10 unit SQ BID 01/16/17 [History] Metoprolol [Lopressor] 112.5 mg PO BID 01/16/17 [History] [place]-3/Dha/Epa/Fish Oil [Fish Oil 1,000 mg Softgel] 4 cap PO DAILY 01/16/17 [ History] Losartan Potassium [Cozaar] 100 mg PO DAILY #30 01/21/17 [Rx] Calcium Acetate [Phos-LO] 667 mg PO TIDWM 02/25/17 [History] Furosemide [Lasix] 40 mg PO BID 02/25/17 [History] Insulin LISPRO [Humalog Kwikpen U-100] 5 unit SQ TID 02/25/17 [History] NIFEdipine [Nifedipine ER] 60 mg PO DAILY 02/25/17 [History] Renal Vitamin [Renal Caps Softgel] 1 mg PO DAILY 04/10/17 [History] traZODone [TraZODone] 50 mg PO HS 06/10/17 [History] 3 Allergy/AdvReac Type Severity Reaction Status Date / Time amitriptyline Allergy feels drunk Verified 04/10/17 08:42 amlodipine Allergy See Verified 04/10/17 08:42 Comments Amoxicillin [From Augmentin] Allergy Itching Verified 04/10/17 08:42 clavulanic acid Allergy Itching Verified 04/10/17 08:42 [From Augmentin] gabapentin [From Neurontin] Allergy make me Verified 04/10/17 08:42 sick at my stomach pregabalin [From Lyrica] Allergy Swelling Verified 04/10/17 08:42 of Lip/Tongue/Throat CAROLYN Inhibitors AdvReac Palpitation Verified 04/10/17 08:42 s fenofibrate [From Tricor] AdvReac See Verified 04/10/17 08:42 Comments Review of Systems Constitutional: chills, lethargy, weakness Nose, mouth and throat: nasal congestion, sore throat Cardiovascular: dyspnea, pedal edema Respiratory: dyspnea, no cough, no chest congestion Gastrointestinal: no abdominal pain, no diarrhea, no nausea, no vomiting Integumentary: changing lesions, skin ulcer, swelling, wounds Neurological: dizziness, weakness, no numbness, no tingling Psychiatric: no anxiety, no depression Exam - Vital Signs Vital signs: Initial Vital Signs Temp Pulse Resp BP Pulse Ox 98.8 F 54 12 113/68 98 01/21/18 19:28 06/09/17 19:28 06/09/17 19:28 06/09/17 19:28 06/09/17 19:28 Vital Signs - Last 8 Hours Temp Pulse Pulse Pulse Pulse Resp BP 06/10/17 08:11 16 06/10/17 07:57 98.8 F 78 18 162/74 06/10/17 05:53 73 73 75 06/10/17 03:10 97.9 F 75 17 158/82 06/10/17 01:44 97.7 F 72 16 152/79 BP BP BP Pulse Ox 06/10/17 08:11 99 06/10/17 07:57 96 06/10/17 05:53 152/73 162/81 159/79 06/10/17 03:10 97 06/10/17 01:44 99 Intake and Output 06/09/17 06/10/17 06/10/17 23:59 07:59 15:59 Intake Total 100 / 100 Balance 100 / 100 Intake: IV Fluids 100 / 100 Doxycycline 100 MG In 0.9 % 100 / 100 Sodium Chloride (Mini-Bag +) 100 ML @ 100 mls/hr IVPB Q12HR ON [facility] Rx#:[id number] Other: Weight 109.452 kg Blood Glucose* 174 Patient Weight 06/10/17 23:59 Weight 109.452 kg - General Appearance General appearance: well-developed, well-nourished, obese EENT: ATNC, PERRL, mucous membranes moist Neck: no JVD, supple Respiratory: clear Cardiology: no edema, regular rate, regular rhythm - Dialysis Access Dialysis Vascular Access: Arteriovenous Fistula (Left forearm) Gastrointestinal: normoactive bowel sounds, no tenderness, no guarding, obese Integumentary: ulcer Additional Comments: 1cm area of wound dehiscence with mild purulent drainage and surrounding erythema overlying left forearm fistula site, no proximal streaking, bilateral chronic ankle ulcers with purulent discharge Neurologic: no focal deficit, alert and oriented x3 Musculoskeletal: no deformities Additional Comments: 1cm area of wound dehiscence with mild purulent drainage and surrounding erythema overlying left forearm fistula site, no proximal streaking, bilateral chronic ankle ulcers with purulent discharge Psychiatric: mood/affect appropriate, cooperative Results - Lab Results 06/10/17 05:36 06/10/17 05:36 Most recent lab results Calcium 8.9 mg/dL (8.6-10.3) 06/10/17 05:36 Magnesium 1.7 mg/dL (1.6-2.6) 06/10/17 05:36 Consult Discharge Plan - Plan Referrals: Suresh Mendoza MD [Primary Care Provider] -
[2017-06-10] MEDS: Aspirin Enteric Coated 81 MG Tablet PO SCH (08:49)
[2017-06-10] MEDS: Cyanocobalamin (B-12) 1,000 MCG TABLET PO SCH (08:49)
[2017-06-10] MEDS: Insulin LISPRO 300 UNITS/3 ML VIAL SQ SCH ×3 (08:53→17:18)
[2017-06-10] MEDS ORDERED: NIFEdipine XL (24 HR) 60 MG TAB.ER.24 PO SCH (09:00)
[2017-06-10 09:15] LABS: Hepatitis B Surface Antibody 0.34 mIU/mL; Hepatitis B Surface Antigen Nonreactive (Nonreactive)
[2017-06-10] MEDS ORDERED: Melatonin 3 MG TABLET PO PRN (17:26)
--- NOTE | 2017-06-10 17:28 | Internal Med Progress Note ---
Date of Encounter: 06/10/17 Time of Encounter: 16:10 - Assessment and plan (1) Weakness Current Visit: Yes Status: Acute Assessment and plan: Patient reports chronic weakness for the last 4 months. Unknown etiology. Patient reports near constant weakness with subjective fever and chills, intermittent nonproductive cough. Weakness could be multifactorial including symptoms from any of the following: hyperglycemia, morbid obesity and deconditioning, end-stage renal disease, anemia of chronic disease, She does have a dialysis port, AV fistula. Fistula site appears to have superficial skin infection. Blood cultures have been ordered and pending, head CT is negative, flu swab is negative. Echo with LVEF 55%, mild LV DD and no significant valvular dysfunction. Carotids with nonstenotic plaque bilaterally. PT has evaluated patient, they have identified no needs. Hemoglobin is 9.0, this is around patient's baseline. Continue to monitor patient's labs, vital signs, condition. Patient received dialysis this evening, monitor labs and vital signs after. Nephrology has been consulted. I appreciate their recommendations consultation. (2) Diabetes Current Visit: Yes Status: Chronic Assessment and plan: Chronic. Continue sliding scale insulin, Accu-Chek before meals at bedtime, diabetic diet. Qualifiers: Diabetes mellitus type: type 2 Diabetes mellitus complication status: with neurologic complications Diabetes mellitus complication detail: with polyneuropathy Diabetes mellitus alf insulin use: with alf use Qualified Code(s): E11.42 - Type 2 diabetes mellitus with diabetic polyneuropathy; Z79.4 - terminal supervisor (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; Z79.4 - jail ( 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; Z79.4 - terminal supervisor (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; Z79.4 - terminal supervisor (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 (3) Hypertension Current Visit: Yes Status: Chronic Assessment and plan: Patient has been hypertensive today, patient is being dialyzed tonight. Continue to monitor vital signs and continue home medications. Qualifiers: Hypertension type: essential hypertension Qualified Code(s): I10 - Essential (primary) hypertension (4) Anemia Current Visit: Yes Status: Chronic Assessment and plan: This likely anemia of chronic disease. Hemoglobin is 9.0. This appears to be near her baseline. Continue to monitor labs Prepare to transfuse if less than 8 and symptomatic. Qualifiers: Anemia type: other cause Other causes of anemia: other cause, not classified Qualified Code(s): D64.89 - Other specified anemias (5) Morbid obesity Current Visit: Yes Status: Chronic Assessment and plan: Chronic. Lifestyle modifications, diet. (6) ESRD (end stage renal disease) on dialysis Current Visit: Yes Status: Chronic Assessment and plan: Dialysis tonight. Nephrology has been consulted. Try to avoid nephrotoxins. (7) Superficial incisional infection of surgical site Current Visit: Yes Status: Acute Assessment and plan: Patient has had left anterior forearm AV fistula surgery in April,. It appears to have a superficial infection. Apply topical Bactroban and IV doxycycline. Right extremity ultrasound shows no abscess in the area of the fistula. Qualifiers: Encounter type: initial encounter Qualified Code(s): T81.4XXA - Infection following a procedure, initial encounter (8) DVT prophylaxis Current Visit: Yes Status: Acute Assessment and plan: Heparin subcutaneous. - Time Spent With Patient less than 15 minutes - Subjective Interval history: Patient was seen and assessed the bedside at 1610. She denies any questions or concerns. She has requested do not have vital signs taken at nighttime and also has requested melatonin at bedtime due to noise in the department. But has not been changed to once a shift. Melatonin is when necessary. Patient is aware and agrees. She denies headache or blurred vision, she denies any abdominal pain, nausea, vomiting, diarrhea. No chest pain or shortness of breath. - Constitutional Vitals: Temp Pulse Resp BP Pulse Ox 97.8 F 83 18 183/81 98 06/10/17 11:21 06/10/17 11:21 06/10/17 11:21 06/10/17 11:21 06/10/17 11:21 General appearance: Present: cooperative, A&O X 3, morbidly obese, no acute distress, answers questions appropriately - Head Head exam: Present: atraumatic, normal inspection, normocephalic - Eye Eye exam: Present: normal appearance, conjuntiva pink, sclera anicteric - Neck Neck exam general surgery: Present: supple, trachea midline. Absent: lymphadenopathy - Respiratory Respiratory exam: Present: CTAB. Absent: accessory muscle use, rales, rhonchi, wheezes - Cardiovascular Cardiovascular exam: Present: RRR, +S1, +S2. Absent: diastolic murmur, gallop, rubs, systolic murmur - GI/Abdominal GI/Abdominal exam: Present: distended, normal bowel sounds, soft. Absent: tenderness - Extremities Exam Extremities exam: Present: warm, radial pulses palpable and symmetrical. Absent : calf tenderness, cyanotic, pedal edema - Neurological Exam Neurological exam: Present: alert, oriented X3, no focal deficits. Absent: facial droop, speech deficit - Skin Skin exam: Present: dry, intact, normal color, warm. Absent: rash Internal Medicine: Result - Labs CBC & Chem 7: 06/10/17 05:36 06/10/17 05:36 Labs: Short CBC 06/10/17 Range/Units 05:36 WBC 8.7 (4.3-11.1) K/mcL Hgb 9.0 L (11.5-15.4) g/dL Hct 27.7 L (35.3-44.9) % Plt Count 200 (140-400) K/mcL Neutrophils # 5.3 (1.6-8.9) K/mcL BMP 06/10/17 05:36 Sodium 136 Potassium 4.7 Chloride 103 Carbon Dioxide 23 BUN 40 H Creatinine 6.54 H Glucose 192 H Calcium 8.9 - Impressions Impressions Echocardiogram 06/10/17 01:02 Impressions: LVEF 55%. Mildly dilated left ventricle. Mild to moderate concentric left ventricular hypertrophy. Mild left ventricular diastolic dysfunction. Normal right ventricular structure and function. Severely dilated left atrium. Moderate pulmonary hypertension. Estimated RVSP is 52 mmHg. No significant valvular dysfunction. Left Ventricular Wall Motion: Rest Echo Findings All wall segments showed normal motion. Findings: Study Quality * Technically adequate exam. ECG Findings * Normal sinus rhythm. Left Ventricle * LVEF 55%. * Mildly dilated left ventricle. * Mild to moderate concentric left ventricular hypertrophy. * Mild left ventricular diastolic dysfunction. * Right Ventricle * Normal right ventricular structure and function. Left Atrium * Severely dilated left atrium. Right Atrium * Moderately dilated right atrium. Interatrial Septum * Interatrial septum not well evaluated. Aortic Valve * Trileaflet aortic valve with normal function. * No aortic regurgitation. * No aortic stenosis. Mitral Valve * Normal mitral valve structure and function. * No mitral regurgitation. * No mitral stenosis. Tricuspid Valve * Normal tricuspid valve structure and function. * Trace tricuspid regurgitation. * Moderate pulmonary hypertension. * Estimated RVSP is 52 mmHg. * Estimated RA pressure is 5 mmHg. Pulmonic Valve * Pulmonic valve is not well visualized. * No pulmonic regurgitation. Aorta * Normally sized aortic root. Pericardium * The pericardium appears normal. Chest X-Ray 06/10/17 01:13 IMPRESSION: 1. No active pulmonary disease. D/ / Orion Serna MD / Orion Serna MD Interpreting Provider: Orion Serna MD Extremity Ultrasound 06/10/17 15:30 IMPRESSION: No abscess identified in the area of the patient's fistula. D/ / 06/10/2017 16:19:35 Arjun Garcia MD / santi Interpreting Provider: Arjun Garcia MD Consult Discharge Plan - Plan Referrals: Suresh Mendoza MD [Primary Care Provider] -
[2017-06-10] MEDS ORDERED: 0.9 % Sodium Chloride 1,000 ML ONE (18:07)
[2017-06-10] MEDS ORDERED: *HR* Heparin 10,000 UNIT/10 ML VIAL IV PRN (18:10)
[2017-06-11] MEDS: Insulin DETEMIR 100 UNIT/ML X5UNITS SQ SCH ×3 (00:13→20:54)
[2017-06-11] MEDS: Insulin LISPRO 300 UNITS/3 ML VIAL SQ SCH ×7 (00:36→22:58)
[2017-06-11] MEDS: NIFEdipine XL (24 HR) 60 MG TAB.ER.24 PO SCH ×2 (01:09→07:56)
[2017-06-11 05:01] LABS: Basophils % 0.3 %; Eosinophils # 0.2 K/mcL (0.0-0.6); Eosinophils % 2.5 %; Hematocrit 27.9 % (35.3-44.9); Hemoglobin 8.8 g/dL (11.5-15.4); Immature Granulocytes % 0.5 % (0-4); Lymphocytes # 1.9 K/mcL (0.6-4.6); Lymphocytes % 29.4 %; Mean Corpuscular HGB Conc 31.5 g/dL (31.6-35.5); Mean Corpuscular Hemoglobin 28.1 pg (28.0-33.3); Mean Corpuscular Volume 89.1 fL (83.0-100.0); Mean Platelet Volume 10.1 fL (9.4-12.4); Monocytes # 0.5 K/mcL (0.0-1.3); Monocytes % 7.5 %; Neutrophils # 3.8 K/mcL (1.6-8.9); Platelet Count 196 K/mcL (140-400); Red Blood Count 3.13 M/mcL (3.82-4.97); Red Cell Distribution Width 15.9 % (11.5-14.5); Segmented Neutrophils % 59.8 %
[2017-06-11 05:31] LABS: Magnesium 1.6 mg/dL (1.6-2.6); Phosphorous 3.6 mg/dL (2.7-4.5)
[2017-06-11 05:32] LABS: Calcium 8.7 mg/dL (8.6-10.3); Potassium 3.9 mEq/L (3.5-5.1)
[2017-06-11 05:34] LABS: % Iron Saturation 18 % (15-50); Iron 33 mcg/dL (50-170); Transferrin 129 mg/dL (203-362)
[2017-06-11] MEDS: *HR* Heparin 5,000 UNIT/ML VIAL SQ SCH ×2 (05:44→16:43)
[2017-06-11] MEDS: Doxycycline 100 MG in 0.9 % Sodium Chloride Mini Bag 100 ML IVPB SCH ×2 (05:44→16:42)
--- NOTE | 2017-06-11 07:05 | Nephrology Progress Note ---
Date of Encounter: 06/11/17 Time of Encounter: 07:04 - Assessment and Plan (1) Problem with dialysis access Current Visit: Yes Status: Acute Purulent material noted at her left forearm over her recently placed dialysis fistula. Her LUE fistula was placed in April [address] Boyle in [place]. Patient reports multiple HD catheters replacements due to line complications, and recently completing 6 weeks of IV antibiotics for bacteremia. Left upper extremity ultrasound No abscess identified in the area of the patient 's fistula Blood and wound cultures pending Continue antibiotics Qualifiers: Encounter type: initial encounter Qualified Code(s): T82.898A - Other specified complication of vascular prosthetic devices, implants and grafts, initial encounter (2) ESRD (end stage renal disease) on dialysis Current Visit: Yes Status: Chronic Patient on HD every MWF since December 2016 Patient's current weight is 109kg, dry weight is 106kg Patient receives HD every MWF at [facility] in [place], last HD treatment was on 06/07/17, and her instrument technologist is Dr. Diya Stratton. Will proceed with UF today Continue HD as scheduled MWF Avoid nephrotoxins (3) Anemia in chronic illness Current Visit: No Status: Chronic Chronic anemia in the setting of ESRD Decreased Iron 33 % Iron saturation 18 Decreased Transferrin 129 Increased Folate 43.0 Decreased Vitamin B12 243 Continue Epogen administration during HD (4) Vitamin D deficiency Current Visit: Yes Status: Chronic Decreased Vitamin D level 15 Ergocalficerol weekly Outpatient monitoring (5) Foot ulcer due to secondary DM Current Visit: No Status: Chronic Management per primary team (6) Poorly controlled diabetes mellitus Current Visit: No Status: Acute Management per primary team (7) Morbid obesity with BMI of 45.0-49.9, adult Current Visit: No Status: Chronic Management per primary team Subjective Principal diagnosis: ESRD Interval history: Patient seen and examined. Patient reports decreased sleep last PM and let eye irritation. She denies any other complaints at this time. Family is at bedside. Objective - Vital Signs Vital signs: Vital Signs Temp Pulse Resp BP Pulse Ox 06/11/17 03:49 98.0 F 77 16 168/83 97 06/11/17 02:20 172/80 06/10/17 23:29 97.9 F 18 204/92 06/10/17 23:25 192/88 06/10/17 23:10 200/97 06/10/17 22:55 181/80 06/10/17 22:40 173/72 06/10/17 22:30 170/74 06/10/17 22:25 179/99 06/10/17 22:10 183/79 06/10/17 21:55 187/83 06/10/17 21:40 178/92 06/10/17 21:25 200/102 06/10/17 21:10 209/100 06/10/17 20:55 193/93 06/10/17 20:40 191/101 06/10/17 20:25 181/93 06/10/17 20:10 195/92 06/10/17 19:55 98.3 F 18 194/91 06/10/17 19:37 98.4 F 89 16 197/96 96 06/10/17 11:21 97.8 F 83 18 183/81 98 06/10/17 08:11 16 99 06/10/17 07:57 98.8 F 78 18 162/74 96 Intake and Output 06/10/17 06/10/17 06/11/17 15:59 23:59 07:59 Intake Total 700 / 700 Output Total 3600 / 3600 Balance -2900 / -2900 Intake: IV Fluids 100 / 100 Doxycycline 100 MG In 0.9 % 100 / 100 Sodium Chloride (Mini-Bag +) 100 ML @ 100 mls/hr IVPB Q12HR [facility] Rx#:[id number] Oral 0 / 0 Intake, Rinseback and Flushes 600 / 600 Output: Urine 0 / 0 Total Dialysis (HD) Output 3600 / 3600 Other: Weight 111.175 kg Blood Glucose* 257 165 Hemodialysis Net Fluid Removed 3000 (mL) Patient Weight 06/11/17 23:59 Weight 111.175 kg - General Appearance General appearance: Present: well-developed, well-nourished, obese EENT: Present: ATNC, PERRL, mucous membranes moist Neck: Present: no JVD, supple Respiratory: Present: clear Cardiology: Present: no murmurs, regular rate, regular rhythm Dialysis Vascular Access: Arteriovenous Fistula (left forearm) Gastrointestinal: Present: normoactive bowel sounds, no tenderness, no guarding , no organomegaly, no masses Integumentary: Present: no rash, warm and dry Neurologic: Present: no focal deficit, alert and oriented x3 Musculoskeletal: Present: no deformities, erythema Psychiatric: Present: mood/affect appropriate, cooperative - Lab 06/11/17 04:49 06/11/17 04:49 Most recent lab results Calcium 8.7 mg/dL (8.6-10.3) 06/11/17 04:49 Phosphorus 3.6 mg/dL (2.7-4.5) 06/11/17 04:49 Magnesium 1.6 mg/dL (1.6-2.6) 06/11/17 04:49 - Imaging Kidney/bladder ultrasound: report reviewed (LUE U/S) Consult Discharge Plan - Plan Referrals: Suresh Mendoza MD [Primary Care Provider] -
[2017-06-11] MEDS ORDERED: 0.9 % Sodium Chloride 250 ML IVC PRN (07:46)
[2017-06-11] MEDS: Cyanocobalamin (B-12) 1,000 MCG TABLET PO SCH (07:56)
[2017-06-11] MEDS: Aspirin Enteric Coated 81 MG Tablet PO SCH (07:56)
[2017-06-11] MEDS: Budesonide/Formoterol 160/4.5 MDI IH SCH ×2 (08:14→19:37)
[2017-06-11] MEDS ORDERED: *HR* Heparin 10,000 UNIT/10 ML VIAL IV PRN (08:47)
[2017-06-11] MEDS ORDERED: 0.9 % Sodium Chloride 2,000 ML ONE (11:40)
[2017-06-11] MEDS ORDERED: Silver Sulfadiazine 50 GM TUBE TP SCH (13:45)
[2017-06-11] MEDS ORDERED: ALPRAZolam 0.5 MG TABLET PO PRN (14:19)
--- NOTE | 2017-06-11 14:19 | Internal Med Progress Note ---
Date of Encounter: 06/11/17 Time of Encounter: 14:16 - Assessment and plan (1) Superficial incisional infection of surgical site Current Visit: Yes Status: Acute Assessment and plan: Superficial cellulitis on left forearm AV fistula. Patient has had left anterior forearm AV fistula surgery in April,. Right extremity ultrasound shows no abscess in the area of the fistula Continue IV doxycycline day #2. . Qualifiers: Encounter type: initial encounter Qualified Code(s): T81.4XXA - Infection following a procedure, initial encounter (2) Hyperglycemia due to type 2 diabetes mellitus Current Visit: No Status: Acute Assessment and plan: Continue Levemir 10 units twice a day, restart lispro 5 units 3 times a day plus insulin sliding scale Qualifiers: Diabetes mellitus custodial insulin use: unspecified intermediate accountant insulin use status Qualified Code(s): E11.65 - Type 2 diabetes mellitus with hyperglycemia (3) Vitamin D deficiency Current Visit: Yes Status: Chronic (4) History of end stage renal disease Current Visit: No Status: Acute Assessment and plan: Continue hemodialysis (5) Gram-positive cocci bacteremia Current Visit: No Status: Acute Assessment and plan: History of MSSA bacteremia treated with vancomycin likely from catheter (6) Weakness Current Visit: Yes Status: Acute Assessment and plan: Patient reports chronic weakness for the last 4 months. Unknown etiology. Patient reports near constant weakness with subjective fever and chills, intermittent nonproductive cough. She does have a dialysis port, AV fistula. Fistula site appears to have superficial skin infection. Blood cultures have been ordered and pending, head CT is negative, flu swab is negative. Echo with LVEF 55%, mild LV DD and no significant valvular dysfunction. Carotids with nonstenotic plaque bilaterally. . (7) Problem with dialysis access Current Visit: Yes Status: Acute Qualifiers: Encounter type: initial encounter Qualified Code(s): T82.898A - Other specified complication of vascular prosthetic devices, implants and grafts, initial encounter - Subjective Interval history: left surgical wound from AV fisltula less erythematous, denies any chest pain or shortness of breath, no fevers, no abdominal pain, no nausea or diarrhea. - Constitutional Vitals: Temp Pulse Resp BP Pulse Ox 97.4 F L 70 15 173/77 98 06/11/17 12:05 06/11/17 07:07 06/11/17 12:05 06/11/17 12:05 06/11/17 08:16 General appearance: Present: cooperative, A&O X 3, morbidly obese, no acute distress, answers questions appropriately - Head Head exam: Present: atraumatic, normocephalic - Eye Eye exam: Present: PERRL, conjuntiva pink, sclera anicteric Pupils: Present: PERRL - Neck Neck exam general surgery: Present: supple, trachea midline. Absent: lymphadenopathy - Respiratory Respiratory exam: Present: CTAB. Absent: accessory muscle use, rales, rhonchi, wheezes - Cardiovascular Cardiovascular exam: Present: RRR, +S1, +S2. Absent: diastolic murmur, gallop, rubs, systolic murmur - GI/Abdominal GI/Abdominal exam: Present: normal bowel sounds, soft, no peritoneal signs. Absent: distended, tenderness - Extremities Exam Extremities exam: Present: warm, radial pulses palpable and symmetrical. Absent : calf tenderness, cyanotic, pedal edema Additional comments: left surgical wound from AV fisltula less erythematous Right IJ permacath - Neurological Exam Neurological exam: Present: CN II-XII intact, oriented X3, no focal deficits. Absent: pronater drift, facial droop, speech deficit - Skin Skin exam: Present: dry, intact Internal Medicine: Result - Labs CBC & Chem 7: 06/11/17 04:49 06/11/17 04:49 Labs: Short CBC 06/11/17 Range/Units 04:49 WBC 6.4 (4.3-11.1) K/mcL Hgb 8.8 L (11.5-15.4) g/dL Hct 27.9 L (35.3-44.9) % Plt Count 196 (140-400) K/mcL Neutrophils # 3.8 (1.6-8.9) K/mcL BMP 06/11/17 04:49 Sodium 136 Potassium 3.9 Chloride 100 Carbon Dioxide 29 BUN 25 H Creatinine 4.27 H Glucose 153 H Calcium 8.7 - Impressions Impressions Echocardiogram 06/10/17 01:02 Impressions: LVEF 55%. Mildly dilated left ventricle. Mild to moderate concentric left ventricular hypertrophy. Mild left ventricular diastolic dysfunction. Normal right ventricular structure and function. Severely dilated left atrium. Moderate pulmonary hypertension. Estimated RVSP is 52 mmHg. No significant valvular dysfunction. Left Ventricular Wall Motion: Rest Echo Findings All wall segments showed normal motion. Findings: Study Quality * Technically adequate exam. ECG Findings * Normal sinus rhythm. Left Ventricle * LVEF 55%. * Mildly dilated left ventricle. * Mild to moderate concentric left ventricular hypertrophy. * Mild left ventricular diastolic dysfunction. * Right Ventricle * Normal right ventricular structure and function. Left Atrium * Severely dilated left atrium. Right Atrium * Moderately dilated right atrium. Interatrial Septum * Interatrial septum not well evaluated. Aortic Valve * Trileaflet aortic valve with normal function. * No aortic regurgitation. * No aortic stenosis. Mitral Valve * Normal mitral valve structure and function. * No mitral regurgitation. * No mitral stenosis. Tricuspid Valve * Normal tricuspid valve structure and function. * Trace tricuspid regurgitation. * Moderate pulmonary hypertension. * Estimated RVSP is 52 mmHg. * Estimated RA pressure is 5 mmHg. Pulmonic Valve * Pulmonic valve is not well visualized. * No pulmonic regurgitation. Aorta * Normally sized aortic root. Pericardium * The pericardium appears normal. Extremity Ultrasound 06/10/17 15:30 IMPRESSION: No abscess identified in the area of the patient's fistula. D/ / 06/10/2017 16:19:35 Arjun Garcia MD / santi Interpreting Provider: Arjun Garcia MD Consult Discharge Plan - Plan Referrals: Suresh Mendoza MD [Primary Care Provider] -
[2017-06-11] MEDS: Furosemide 40 MG TABLET PO SCH (16:42)
[2017-06-11] MEDS: Calcium Acetate 667 MG CAPSULE PO SCH (16:42)
[2017-06-11] MEDS ORDERED: traZODone 50 MG TABLET PO SCH (21:00)
[2017-06-12] MEDS: *HR* Heparin 5,000 UNIT/ML VIAL SQ SCH (05:57)
[2017-06-12] MEDS: Doxycycline 100 MG in 0.9 % Sodium Chloride Mini Bag 100 ML IVPB SCH (05:58)
[2017-06-12 06:16] LABS: Hematocrit 27.8 % (35.3-44.9); Mean Corpuscular HGB Conc 32.4 g/dL (31.6-35.5); Mean Corpuscular Hemoglobin 28.5 pg (28.0-33.3); Mean Platelet Volume 10.1 fL (9.4-12.4); Platelet Count 199 K/mcL (140-400); Red Blood Count 3.16 M/mcL (3.82-4.97); Red Cell Distribution Width 15.9 % (11.5-14.5)
[2017-06-12 06:45] LABS: Calcium 8.6 mg/dL (8.6-10.3); Potassium 4.6 mEq/L (3.5-5.1)
[2017-06-12] MEDS ORDERED: 0.9 % Sodium Chloride 250 ML IVC PRN (06:58)
--- NOTE | 2017-06-12 06:59 | Nephrology Progress Note ---
Date of Encounter: 06/12/17 Time of Encounter: 06:59 - Assessment and Plan (1) Problem with dialysis access Current Visit: Yes Status: Acute Purulent material noted at her left forearm over her recently placed dialysis fistula. Left upper extremity ultrasound No abscess identified in the area of the patient 's fistula Her LUE fistula was placed in April [address] Boyle in [place]. Patient has outpatient follow up appt with her Vascular Surgeon in about 1 week. She may need a fistulagram but that may be arranged as an outpatient. Patient reports multiple HD catheters replacements due to line complications, and recently completing 6 weeks of IV antibiotics for bacteremia. Blood and wound cultures show no growth to date Continue antibiotics Qualifiers: Encounter type: initial encounter Qualified Code(s): T82.898A - Other specified complication of vascular prosthetic devices, implants and grafts, initial encounter (2) ESRD (end stage renal disease) on dialysis Current Visit: Yes Status: Chronic Patient on HD every MWF since December 2016 Patient's current weight is 111kg, dry weight is 106kg Patient receives HD every MWF at [facility] in [place], last HD treatment was on 06/07/17, and her insulation engineman is Dr. Diya Stratton. Continue HD as scheduled MWF Avoid nephrotoxins (3) Anemia in chronic illness Current Visit: No Status: Chronic Chronic anemia in the setting of ESRD Decreased Iron 33 % Iron saturation 18 Decreased Transferrin 129 Increased Folate 43.0 Decreased Vitamin B12 243 Continue Epogen administration during HD MWF (4) Vitamin D deficiency Current Visit: Yes Status: Chronic Decreased Vitamin D level 15 Ergocalficerol weekly Outpatient monitoring (5) Foot ulcer due to secondary DM Current Visit: No Status: Chronic Management per primary team (6) Poorly controlled diabetes mellitus Current Visit: No Status: Acute Management per primary team (7) Morbid obesity with BMI of 45.0-49.9, adult Current Visit: No Status: Chronic Management per primary team Subjective Principal diagnosis: ESRD Interval history: Patient seen and examined. Patient reports improved sleep last PM and denies any complaints at this time. Blood and wound cultures show no growth to date and wound care has been following the patient. Patient reports she will likely be discharged after dialysis today. Patient reports she will be changing dialysis centers once she moves to be closer to family. Objective - Vital Signs Vital signs: Vital Signs Temp Pulse Resp BP Pulse Ox 06/11/17 22:43 99.2 F 70 16 133/73 94 06/11/17 19:53 98.2 F 75 16 122/63 98 06/11/17 19:37 17 98 06/11/17 12:05 97.4 F L 15 173/77 06/11/17 11:45 151/76 06/11/17 11:30 167/80 06/11/17 11:15 172/77 06/11/17 11:00 140/65 06/11/17 10:45 165/78 06/11/17 10:30 168/75 06/11/17 10:15 177/77 06/11/17 10:00 183/83 06/11/17 09:45 97.2 F L 17 179/86 06/11/17 08:16 16 98 06/11/17 07:07 98.3 F 70 18 145/82 97 Intake and Output 06/11/17 06/11/17 06/12/17 15:59 23:59 07:59 Intake Total 960 / 960 100 / 100 Output Total 3600 / 3600 Balance -2640 / -2640 100 / 100 Intake: IV Fluids 100 / 100 Doxycycline 100 MG In 0.9 % 100 / 100 Sodium Chloride (Mini-Bag +) 100 ML @ 100 mls/hr IVPB Q12HR [facility] Rx#:[id number] Oral 360 / 360 Intake, Rinseback and Flushes 600 / 600 Output: Urine 0 / 0 Total Dialysis (HD) Output 3600 / 3600 Other: Meal Lunch Percent of Meal Consumed 100% Blood Glucose* 274 204 Hemodialysis Net Fluid Removed 3000 (mL) - General Appearance General appearance: Present: well-developed, well-nourished, obese EENT: Present: ATNC, PERRL, mucous membranes moist Neck: Present: no JVD, supple Respiratory: Present: clear Cardiology: Present: edema (1+ pedal edema), regular rate, regular rhythm Additional Comments: 2/6 [facility] Vascular Access: Arteriovenous Fistula thrill: Yes bruit: Yes Gastrointestinal: Present: normoactive bowel sounds, no tenderness, no guarding , no organomegaly Integumentary: Present: no rash, erythema Additional Comments: bandages in place left forearm and bilateral ankles Neurologic: Present: no focal deficit, alert and oriented x3 Musculoskeletal: Present: no deformities, erythema Psychiatric: Present: mood/affect appropriate, cooperative - Lab 06/12/17 06:00 06/12/17 06:00 Most recent lab results Calcium 8.6 mg/dL (8.6-10.3) 06/12/17 06:00 Phosphorus 3.6 mg/dL (2.7-4.5) 06/11/17 04:49 Magnesium 1.6 mg/dL (1.6-2.6) 06/11/17 04:49 Consult Discharge Plan - Plan Referrals: Suresh Mendoza MD [Primary Care Provider] - 06/18/17 1:15 pm Tariq Winn DPM [Partnered Physician] -
[2017-06-12] MEDS: Budesonide/Formoterol 160/4.5 MDI IH SCH (07:31)
--- NOTE | 2017-06-12 07:55 | Electrocardiograph Report ---
[address] [place], [place] [address] Test Date: 2017-06-09 Pat Name: Maria Del Carmen Frederick Department: 104 Room: 3B Gender: F Counter Manager: ARTIS : 1960 Requested By: Berry Samayoa Order Number: [id number] Reading MD: Dionte Slade MD Measurements Intervals [place] Rate: 56 P: 32 [place]: 163 QRS: 11 QRSD: 88 T: 67 QT: 458 QTc: 450 Interpretive Statements SINUS BRADYCARDIA Poor R wave progression Electronically Signed On 06-12-2017 6:52:42 EST by Dionte Slade MD
[2017-06-12] MEDS ORDERED: 0.9 % Sodium Chloride 2,000 ML ONE (09:30)
[2017-06-12] MEDS: Insulin DETEMIR 100 UNIT/ML X5UNITS SQ SCH (11:06)
[2017-06-12] MEDS: Insulin LISPRO 300 UNITS/3 ML VIAL SQ SCH ×2 (11:06)
--- NOTE | 2017-06-12 15:15 | Discharge Summary ---
Date of Encounter: 06/12/17 Time of Encounter: 15:04 - Discharge Diagnosis (1) Superficial incisional infection of surgical site Priority: Primary Status: Acute Comments: s/p left forearm fistula creation 04/2017. Now withsuperficial cellulitis on left forearm AV fistula. Right extremity ultrasound shows no abscess in the area of the fistula. Symptoms significantly improved with IV doxycycline. Has outpatient follow up appt with Vascular Surgeon in about 1 week. Evaluated by Nephrology who noted she may need a fistulagram but this can arranged outpatient. Continue doxycycline at discharge, to complete a total of 7 day course. Qualifiers: Encounter type: initial encounter Qualified Code(s): T81.4XXA - Infection following a procedure, initial encounter (2) ESRD (end stage renal disease) on dialysis Priority: Secondary Status: Chronic Comments: per hx. HD M/W/F. Continue outpatient dialysis schedule. Nephrology followed. (3) Foot ulcer due to secondary DM Priority: Secondary Status: Chronic Comments: per hx. Follows with Dr. Winn. Follow up outpatient as previously planned. (4) Weakness Priority: Primary Status: Resolved Comments: Patient reports chronic weakness for the last 4 months. Unknown etiology. Patient reports near constant weakness with subjective fever and chills, intermittent nonproductive cough. With fistula infection as noted above. Blood cultures no growth to date. Head CT is negative, flu swab is negative. Echo with LVEF 55%, mild LV DD and no significant valvular dysfunction. Carotids with nonstenotic plaque bilaterally. Etiology unknown but suspect morbid obesity and comorbidities contributing to overall weakness and malaise. Patient report his symptoms improved and requested discharge home. Advised to follow-up with PCP within 1-2 weeks (5) Vitamin D deficiency Priority: Secondary Status: Chronic Comments: per hx. Cont home vitamin D supplement (6) Diabetes Priority: Secondary Status: Chronic Comments: per hx. Blood sugars variable. Suspect secondary to dietary noncompliance. Strongly encouraged diet/lifestyle modifications. Continue home diabetes medication regimen. Can follow up outpatient with PCP. Qualifiers: Diabetes mellitus type: type 2 Diabetes mellitus complication status: with neurologic complications Diabetes mellitus complication detail: with polyneuropathy Diabetes mellitus director long term care insulin use: with director long term care use Qualified Code(s): E11.42 - Type 2 diabetes mellitus with diabetic polyneuropathy; Z79.4 - terminal press operator (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; Z79.4 - custodial ( 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; Z79.4 - terminal press operator (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; Z79.4 - terminal press operator (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 (7) Anemia Priority: Secondary Status: Chronic Comments: Chronic anemia in the setting of ESRD. Hgb stable, no active bleeding. Continue Epogen with HD sessions Qualifiers: Anemia type: other cause Other causes of anemia: other cause, not classified Qualified Code(s): D64.89 - Other specified anemias (8) Gram-positive cocci bacteremia Priority: Secondary Status: Resolved Comments: per recent hx. Patient reports multiple HD catheters replacements due to line complications, and recently completing 6 weeks of IV antibiotics for bacteremia. Blood culture this admission no growth to date. - Discharge Medications Prescriptions: Doxycycline 100 mg PO BID #10 capsule Home Medications: Aspirin Enteric Coated [Aspirin EC] 81 mg PO DAILY 04/08/15 [History] Multivitamin [Multi-Day Vitamins] 1 tab PO DAILY 04/08/15 [History] Simvastatin [Zocor] 40 mg PO DAILY 04/08/15 [History] Omeprazole [PriLOSEC] 20 mg PO DAILY 12/06/15 [History] ALPRAZolam [Xanax 0.5 MG Tablet] 0.5 mg PO TID PRN 06/27/16 [History] Tizanidine HCl 2 mg PO TID PRN 06/27/16 [History] Budesonide/Formoterol 160/4.5 [Symbicort 160/4.5] 2 puff IH BIDR #1 inhaler [Rx] Ergocalciferol (VITAMIN D2) [Vitamin D2] 100,000 unit PO QWEEK 01/16/17 [History ] Insulin DETEMIR [Levemir Flextouch] 10 unit SQ BID 01/16/17 [History] Metoprolol [Lopressor] 112.5 mg PO BID 01/16/17 [History] [place]-3/Dha/Epa/Fish Oil [Fish Oil 1,000 mg Softgel] 4 cap PO DAILY 01/16/17 [ History] Losartan Potassium [Cozaar] 100 mg PO DAILY #30 01/21/17 [Rx] Calcium Acetate [Phos-LO] 667 mg PO TIDWM 02/25/17 [History] Furosemide [Lasix] 40 mg PO BID 02/25/17 [History] Insulin LISPRO [Humalog Kwikpen U-100] 5 unit SQ TID 02/25/17 [History] NIFEdipine [Nifedipine ER] 60 mg PO DAILY 02/25/17 [History] Renal Vitamin [Renal Caps Softgel] 1 mg PO DAILY 04/10/17 [History] traZODone [TraZODone] 50 mg PO HS 06/10/17 [History] Doxycycline 100 mg PO BID #10 capsule 06/12/17 [Rx] Allergies/Adverse Reactions: 3 Allergy/AdvReac Type Severity Reaction Status Date / Time amitriptyline Allergy feels drunk Verified 04/10/17 08:42 amlodipine Allergy See Verified 04/10/17 08:42 Comments Amoxicillin [From Augmentin] Allergy Itching Verified 04/10/17 08:42 clavulanic acid Allergy Itching Verified 04/10/17 08:42 [From Augmentin] gabapentin [From Neurontin] Allergy make me Verified 04/10/17 08:42 sick at my stomach pregabalin [From Lyrica] Allergy Swelling Verified 04/10/17 08:42 of Lip/Tongue/Throat CAROLYN Inhibitors AdvReac Palpitation Verified 04/10/17 08:42 s fenofibrate [From Tricor] AdvReac See Verified 04/10/17 08:42 Comments Procedures/tests Complete & Pending: Procedures Performed prior 72 hours Category Date Time Status US extremity nonvascular RT [US] Routine Exams 06/10/17 15:30 Completed EV carotid duplex imaging BI Routine Y 06/10/17 01:02 Completed EV echocardiogram Routine Y 06/10/17 01:02 Completed Date of admission: 06/09/17 23:08 Primary care physician: Suresh Mendoza MD Consults: 06/10/17 01:00 Consult to Nephrology [CONS] Routine Consulting Provider: Kidney Tresa/JUAN DIEGO/WILL/KIRSTEN Reason for Consult: Pt has ESRD need HD, due is 06/10 Call Completed: No 06/10/17 01:04 Consult to Occupational Therapy [CONS] Routine Comment: Evaluate, develop and implement POC Reason for Consult: weakness Consult to Physical Therapy [CONS] Routine Comment: Evaluate, develop and implement POC Reason for Consult: weakness 06/10/17 07:15 Consult to Dialysis [CONS] ONCE 06/11/17 08:00 Consult to Dialysis [CONS] ONCE 06/11/17 08:30 Consult to PICC team [Consult to Invasive Line Access Team] [CONS] Routine Reason for Consult: limited access Line Type: EPIV 06/11/17 08:51 Consult to Wound Care [CONS] Routine Reason for Consult: diabet ulcers Call Completed: No 06/11/17 13:58 Consult to Farmworkers [CONS] Routine Reason for SW Consult: . 06/12/17 07:00 Consult to Dialysis [CONS] ONCE Discharging clinician: Saba Patrick Anticipated date of discharge: 06/12/17 - Patient Status Disposition: Home, Self-Care Condition: Good Functional capacity at discharge: uses cane/walker Overall status at discharge: patient is back to baseline - Discharge Instructions Instructions: Cellulitis (DC), Arteriovenous Fistula Creation for Hemodialysis (DC) Follow Up With: Suresh Mendoza MD [Primary Care Provider] - 06/18/17 1:15 pm Tariq Winn DPM [Partnered Physician] - Derrell Boyle MD [Non-Partnered Physician] - - Diet and Activity Diet: diabetic diet, low fat, low cholesterol, other (renal ) Hospital course: Ms. Frederick is a 57 year old female - Time Spent with Patient Total time spent providing and/or coordinating discharge services: - Constitutional Vitals: Temp Pulse Resp BP Pulse Ox 98.3 F 77 20 174/87 100 06/12/17 13:30 06/12/17 12:10 06/12/17 13:30 06/12/17 14:30 06/12/17 12:10 General appearance: Present: cooperative, A&O X 3, morbidly obese, no acute distress, answers questions appropriately
[2017-06-12 16:37] VITALS: BP 145/75
[2017-06-12] MEDS: NIFEdipine XL (24 HR) 60 MG TAB.ER.24 PO SCH (17:54)
[2017-06-12] MEDS: Cyanocobalamin (B-12) 1,000 MCG TABLET PO SCH (17:54)
[2017-06-12] MEDS: Aspirin Enteric Coated 81 MG Tablet PO SCH (17:55)
[2017-06-12] MEDS: Calcium Acetate 667 MG CAPSULE PO SCH (17:55)
[2017-06-12] MEDS: Furosemide 40 MG TABLET PO SCH (17:55)
== END 2017-06-12 18:46 | disposition home or self-care (01) ==
LOC: EMEROO 19:16 → 3BNU 19:16
PROVIDERS: ADMIT Pediatrics; ATTEND Registered Nurse

== ENCOUNTER 2017-12-17 09:00 | Observation (INO) ==
[2017-12-17] MEDS ORDERED: methylPREDNISolone 125 MG/2 ML VIAL IVP ONE (09:06)
[2017-12-17] MEDS ORDERED: Ipratropium/Albuterol Neb 3 ML IH ONE (09:06)
--- NOTE | 2017-12-17 09:14 | Emergency Department Note ---
Disposition Clinical Impression: Asthma exacerbation Qualifiers: Asthma severity: moderate Asthma persistence: persistent Qualified Code(s): J45.41 - Moderate persistent asthma with (acute) exacerbation Congestive heart failure Qualifiers: Heart failure type: unspecified Heart failure chronicity: unspecified Qualified Code(s): I50.9 - Heart failure, unspecified Disposition: Admitted As Inpatient Condition: Good Referrals: Suresh Mendoza MD [Primary Care Provider] - Time of Disposition: 09:21 General Adult HPI - General Stated complaint: vomiting Time Seen by Provider: 12/17/17 09:05 Source: patient, family, EMS Mode of arrival: EMS Limitations: no limitations Nursing Notes Reviewed: Yes Vital Signs Reviewed: Yes - History of Present Illness HPI Narrative: 57 horacio tejada presents to the eD with complits of shortness of breath ands tates that she has a history of asthma and corey snot wear supplemental oxygen at home and states that she is a dialysis patient and often gets it T/R/F with Dr. Keane. Patient states that this happens sometimes before her dialysis treatment and her asthma pj get aggravated. Golden was on the floor with a braething treatment per EMS on arrival and sates that her initial pulse ox was 69%. Golden sates that this exact scenario happened a few months ago which elicited an admission to the hospital. On presentation she is aubidle wheezing with mild retractions. Golden was given NRB in EMS and currently is 92% on RA. PAtient denies chest pain , productive cough, hemoptyosis, or abdominal pain or vomitting. Chief complaint listed earlier states vomitting but this in incorrect as golden is not expereincing vomitting or abdominal pain. - Related Data Home Medications Medication Instructions Recorded Confirmed Aspirin Enteric Coated [Aspirin EC] 81 mg PO DAILY 04/08/15 12/17/17 Multivitamin [Multi-Day Vitamins] 1 tab PO DAILY 04/08/15 12/17/17 Simvastatin [Zocor] 40 mg PO DAILY 04/08/15 12/17/17 Omeprazole [PriLOSEC] 20 mg PO DAILY 12/06/15 12/17/17 ALPRAZolam [Xanax 0.5 MG Tablet] 0.5 mg PO TID PRN 06/27/16 12/17/17 Tizanidine HCl 2 mg PO TID PRN 06/27/16 12/17/17 Ergocalciferol (VITAMIN D2) 50,000 unit PO QWEEK 01/16/17 12/17/17 [Vitamin D2] Insulin DETEMIR [Levemir Flextouch] 10 unit SQ BID 01/16/17 12/17/17 Calcium Acetate [Phos-LO] 1,334 mg PO TID 02/25/17 12/17/17 Insulin LISPRO [Humalog Kwikpen 5 unit SQ TID 02/25/17 12/17/17 U-100] NIFEdipine [Nifedipine ER] 60 mg PO DAILY 02/25/17 12/17/17 Renal Vitamin [Renal Caps Softgel] 1 mg PO DAILY 04/10/17 12/17/17 traZODone [TraZODone] 50 mg PO HS 06/10/17 12/17/17 Previous Rx's Medication Instructions Recorded Budesonide/Formoterol 160/4.5 2 puff IH BIDR #1 inhaler 07/05/16 [Symbicort 160/4.5] Losartan Potassium [Cozaar] 100 mg PO DAILY #30 01/21/17 Doxycycline 100 mg PO BID #10 capsule 06/12/17 Allergies Allergy/AdvReac Type Severity Reaction Status Date / Time amitriptyline Allergy feels drunk Verified 04/10/17 08:42 amlodipine Allergy See Verified 04/10/17 08:42 Comments Amoxicillin [From Augmentin] Allergy Itching Verified 04/10/17 08:42 clavulanic acid Allergy Itching Verified 04/10/17 08:42 [From Augmentin] gabapentin [From Neurontin] Allergy make me Verified 04/10/17 08:42 sick at my stomach pregabalin [From Lyrica] Allergy Swelling Verified 04/10/17 08:42 of Lip/Tongue/Throat CAROLYN Inhibitors AdvReac Palpitation Verified 04/10/17 08:42 s fenofibrate [From Tricor] AdvReac See Verified 04/10/17 08:42 Comments Constitutional: Denies: fever, chills, weakness, weight change Eyes: Denies: eye pain, eye discharge, vision change ENT ED: Denies: ear pain, throat pain, dental pain, hearing loss, epistaxis, congestion, dysphagia Cardiovascular: Reports: dyspnea on exertion. Denies: chest pain, palpitations , edema, syncope Respiratory: Reports: cough, dyspnea, wheezes. Denies: hemoptysis, stridor Gastrointestinal: Denies: abdominal pain, nausea, vomiting, diarrhea, constipation, hematemesis, melena, hematochezia Genitourinary: Denies: dysuria, frequency, hematuria, discharge Musculoskeletal: Denies: back pain, neck pain, arthralgia, myalgia Integumentary: Denies: rash, abrasion, lesions Neurological: Denies: headache, weakness, numbness, paresthesias, confusion, abnormal gait, vertigo Psychiatric: Denies: anxiety, depression, suicidal thoughts, homicidal thoughts , auditory hallucinations, visual hallucinations Endocrine: Denies: fatigue Hematological/Lymphatic: Denies: easy bleeding, easy bruising Allergic/Immunologic: Denies: facial swelling, urticaria Past Medical History - Past Medical History Medical history: Reports: arthritis, asthma, CHF, CVA, diabetes, dialysis, fibromyalgia, GERD, hyperlipidemia, hypertension, myocardial infarction, renal disease, other Surgical history: Reports: , orthopedic, other Psychiatric history: Reports: anxiety, depression CREDIT PROCESSOR history: Reports: no CREDIT PROCESSOR history - Social History Smoking Status: Former smoker Smokeless Tobacco Status: No Alcohol use: Reports: none Drug use: Reports: none Physical Exam - General Limitations: no limitations General appearance: alert, in no apparent distress - Head Head exam: atraumatic, normocephalic, normal inspection - Eye Eye exam: Present: normal appearance, PERRL, EOMI - Expanded Eye Exam Pupils: Bilateral: reactive - ENT ENT exam: normal exam, normal oropharynx, mucous membranes moist - Expanded ENT Exam External ear exam: Present: normal external inspection Mouth exam: Present: normal external inspection Teeth exam: Present: normal inspection Throat exam: Present: normal inspection - Neck Neck exam: Present: normal inspection, full ROM, trachea midline - Chest Chest inspection: Present: normal inspection, symmetric chest wall rise - Respiratory Respiratory exam: Present: wheezes, accessory muscle use - Cardiovascular Cardiovascular exam: Present: regular rate, normal rhythm, normal heart sounds - Abdominal Exam Abdominal exam: Present: soft, Non-Tender. Absent: tenderness, distention, guarding, rebound, rigidity - Extremities Exam Extremities exam: Present: normal inspection, full ROM. Absent: tenderness, pedal edema - Expanded Upper Extremity Exam Shoulder exam: Present: normal inspection, full ROM Arm exam: Present: normal inspection, full ROM Elbow exam: Present: normal inspection, full ROM Forearm/Wrist exam: Present: normal inspection, full ROM Hand exam: Present: normal inspection, full ROM Vascular exam: Normal: capillary refill, radial pulse - Expanded Lower Extremity Exam Hip/Pelvis exam: Present: normal inspection, full ROM Upper leg exam: Present: normal inspection, full ROM Knee exam: Present: normal inspection, full ROM Lower leg exam: Present: normal inspection, full ROM Ankle exam: Present: normal inspection, full ROM Foot/toe exam: Present: normal inspection, full ROM Neurovascular/Tendon exam: Absent: motor deficit, sensory deficit, tendon deficit - Back Exam Back exam: Present: normal inspection, full ROM. Absent: tenderness - Neurological Exam Neurological exam: Present: alert, oriented X3 - Expanded Neurological Exam Patient oriented to: Present: person, place, time Coma Scale Eye Opening: Spontaneous Coma Scale Motor Response: Obeys Commands Coma Scale Verbal Response: Oriented Coma Scale Total: 15 - Psychiatric Psychiatric exam: Present: normal affect, normal mood - Skin Skin exam: Present: warm, dry, intact, normal color Course Course Narrative: we will do a dyspne workup including consulting with nephrology for dialysis. Golden will be admitted to medicine for pumonary toilet as I believe this is a astham excerbation and will reuire pulmonary toilet. - Consultations Consultation #1: discussed with Dr. Sparrow nephrology and he will add mónica loaiza to inpatient dialysis today Time: 09:26 Consultation #2: discussed case with Dr. Portillo and he accepts aptient ot his service. Time: 10:03 Vital Signs O2 Sat by Pulse Oximetry 95 12/17/17 09:11 Temperature 97.6 F 12/17/17 09:12 Pulse Rate 93 12/17/17 09:12 Respiratory Rate 16 12/17/17 09:26 Blood Pressure 203/104 12/17/17 09:12 O2 Sat by Pulse Oximetry 96 12/17/17 09:26 Medical Decision Making - Medical Records Medical records reviewed: Yes I reviewed the patient's medical records. - Lab Data Lab results reviewed: Yes I reviewed the patient's lab results. Result diagrams: 12/17/17 09:24 Lab Results 12/17/17 12/17/17 12/17/17 Range/Units 09:24 09:24 09:24 WBC 11.1 (4.3-11.1) K/mcL RBC 4.43 (3.82-4.97) M/mcL Hgb 13.2 (11.5-15.4) g/dL Hct 41.5 (35.3-44.9) % MCV 93.7 (83.0-100.0) fL MCH 29.8 (28.0-33.3) pg MCHC 31.8 (31.6-35.5) g/dL RDW 14.7 H (11.5-14.5) % Plt Count 217 (140-400) K/mcL MPV 10.1 (9.4-12.4) fL Immature Gran % 0.4 (0-4) % Seg Neutrophils % 84.0 % Lymphocytes % 11.4 % Monocytes % 3.2 % Eosinophils % 0.6 % Basophils % 0.4 % Neutrophils # 9.3 H (1.6-8.9) K/mcL Lymphocytes # 1.3 (0.6-4.6) K/mcL Monocytes # 0.4 (0.0-1.3) K/mcL Eosinophils # 0.1 (0.0-0.6) K/mcL Basophils # 0.0 (0.0-0.2) K/mcL PT 12.4 H (9.4-12.1) Seconds INR 1.1 APTT 29.9 (26.0-36.0) Seconds Lactic Acid (0.5-2.2) mmol/L B-Natriuretic Peptide 2046 H (Less than 100) pg/mL 12/17/17 Range/Units 09:24 WBC (4.3-11.1) K/mcL RBC (3.82-4.97) M/mcL Hgb (11.5-15.4) g/dL Hct (35.3-44.9) % MCV (83.0-100.0) fL MCH (28.0-33.3) pg MCHC (31.6-35.5) g/dL RDW (11.5-14.5) % Plt Count (140-400) K/mcL MPV (9.4-12.4) fL Immature Gran % (0-4) % Seg Neutrophils % % Lymphocytes % % Monocytes % % Eosinophils % % Basophils % % Neutrophils # (1.6-8.9) K/mcL Lymphocytes # (0.6-4.6) K/mcL Monocytes # (0.0-1.3) K/mcL Eosinophils # (0.0-0.6) K/mcL Basophils # (0.0-0.2) K/mcL PT (9.4-12.1) Seconds INR APTT (26.0-36.0) Seconds Lactic Acid 1.7 (0.5-2.2) mmol/L B-Natriuretic Peptide (Less than 100) pg/mL - Radiology Data Radiology results reviewed: Yes I reviewed the patient's radiology results. - EKG Data EKG #1 EKG attestation: Yes I reviewed and interpreted this EKG. EKG results narrative: NSR with rate of 90. NO STEMI. normla interlva. no change from 04/10/17. nonspecific ST-T wave abnormatliy
[2017-12-17 09:39] LABS: Basophils % 0.4 %; Eosinophils # 0.1 K/mcL (0.0-0.6); Eosinophils % 0.6 %; Hematocrit 41.5 % (35.3-44.9); Hemoglobin 13.2 g/dL (11.5-15.4); Immature Granulocytes % 0.4 % (0-4); Lymphocytes # 1.3 K/mcL (0.6-4.6); Lymphocytes % 11.4 %; Mean Corpuscular HGB Conc 31.8 g/dL (31.6-35.5); Mean Corpuscular Hemoglobin 29.8 pg (28.0-33.3); Mean Corpuscular Volume 93.7 fL (83.0-100.0); Mean Platelet Volume 10.1 fL (9.4-12.4); Monocytes # 0.4 K/mcL (0.0-1.3); Monocytes % 3.2 %; Neutrophils # 9.3 K/mcL (1.6-8.9); Platelet Count 217 K/mcL (140-400); Red Blood Count 4.43 M/mcL (3.82-4.97); Red Cell Distribution Width 14.7 % (11.5-14.5)
[2017-12-17 09:47] LABS: INR 1.1; Prothrombin Time 12.4 Seconds (9.4-12.1)
[2017-12-17 09:49] LABS: Activated Partial Thrombo Time 29.9 Seconds (26.0-36.0)
[2017-12-17 10:05] LABS: Troponin I 0.03 ng/mL (< 0.04)
[2017-12-17 10:09] LABS: Albumin 4.1 g/dL (3.5-5.7); Albumin/Globulin Ratio 1.3 (1.1-2.2); Bilirubin,Direct 0.1 mg/dL (0.0-0.2); Bilirubin,Indirect 0.2 mg/dL (0.0-1.2); Bilirubin,Total 0.3 mg/dL (0.3-1.0); Calcium 9.2 mg/dL (8.6-10.3); Globulin 3.1 g/dL (2.4-3.5); Potassium 5.4 mEq/L (3.5-5.1); Total Protein 7.2 g/dL (6.4-8.9)
[2017-12-17] MEDS ORDERED: 0.9 % Sodium Chloride 250 ML IVC PRN (10:13)
[2017-12-17] MEDS ORDERED: 0.9 % Sodium Chloride 1,000 ML PRIME SCH (10:15)
[2017-12-17 10:51] LABS: Hepatitis B Surface Antigen Nonreactive (Nonreactive)
--- NOTE | 2017-12-17 11:31 | Nephrology Consult Note ---
Date of Encounter: 12/17/17 Time of Encounter: 11:19 Assessment and Plan (1) ESRD (end stage renal disease) on dialysis Current Visit: Yes Status: Acute Current regimen is TTS at [facility]. We will plan for HD today. Renal dose all medications and avoid nephrotoxins. Will order additional UF for HD as needed. (2) Hyperkalemia Current Visit: Yes Status: Acute Potassium is 5.4, will correct with hemodialysis. Renal diet when able to eat. (3) Asthma exacerbation Current Visit: Yes Status: Acute Per primary. Qualifiers: Asthma severity: moderate Asthma persistence: persistent Qualified Code(s ): J45.41 - Moderate persistent asthma with (acute) exacerbation History of Present Illness - Reason for Consult Consult date: 12/17/17 end stage renal disease - Chief Complaint ANGELINE - History of Present Illness Ms. Frederick is a 57-year-old female that presented to the ED with difficulty in breathing this morning. It started about 6:00 squad was called and she was transported to ED. She was taking a breathing treatment at home when the squad arrived, and has received several breathing tx's since being in the ED. PMH: anemia, DM, chronic diabetic foot ulcers. ESRD every TTS at [facility]. Last HD treatment was Saturday12/15/17. Denies chest pain shortness of breath nausea vomiting or diarrhea. Admits to difficulty in breathing as stated above this morning. States her chest felt "tight" but denied any pain or radiation. We will continue to follow along for the duration of the hospitalization for hemodialysis. Denies any recent change in past medical history or medication changes. Past Med Surg Social Fam HX - Past Medical History Medical history: arthritis, asthma, CHF, CVA, diabetes, dialysis, fibromyalgia, GERD, hyperlipidemia, hypertension, myocardial infarction, renal disease, other Additional medical history: neuropathy Psychiatric history: anxiety, depression - Past Surgical History Surgical History: , orthopedic, other Additional surgical history: d&c. right chest port. right ankle surgery - Social History Smoking Status: Former smoker Smokeless Tobacco Status: No Alcohol use: none Drug use: none - Family History Mother Adopted: No Family Member Ethnicity: Non- Living Status: Hx Family Cardiac Disorders: No Hx Family Respiratory Disorders: No Hx Family Cancer: Yes (Lung Ca) Hx Family GI Disorders: No Hx Family Endocrine Disorder: No Hx Family Neuromuscular Disorders: No Hx Family Neurologic Disorders: No Hx Family HEENT Disorders: No Hx Family Autoimmune Disorders: No Father Adopted: No Family Member Ethnicity: Non- Living Status: Hx Family Cardiac Disorders: No Hx Family Respiratory Disorders: Yes Hx Family Cancer: Yes (Lung Ca) Hx Family GI Disorders: No Hx Family Endocrine Disorder: No Hx Family Neuromuscular Disorders: No Hx Family Neurologic Disorders: No Hx Family HEENT Disorders: No Hx Family Autoimmune Disorders: No Medications and Allergies Aspirin Enteric Coated [Aspirin EC] 81 mg PO DAILY 04/08/15 [History] Multivitamin [Multi-Day Vitamins] 1 tab PO DAILY 04/08/15 [History] Simvastatin [Zocor] 40 mg PO DAILY 04/08/15 [History] Omeprazole [PriLOSEC] 20 mg PO DAILY 12/06/15 [History] ALPRAZolam [Xanax 0.5 MG Tablet] 0.5 mg PO TID PRN 06/27/16 [History] Tizanidine HCl 2 mg PO TID PRN 06/27/16 [History] Budesonide/Formoterol 160/4.5 [Symbicort 160/4.5] 2 puff IH BIDR #1 inhaler [Rx] Ergocalciferol (VITAMIN D2) [Vitamin D2] 50,000 unit PO QWEEK 01/16/17 [History] Insulin DETEMIR [Levemir Flextouch] 10 unit SQ BID 01/16/17 [History] Losartan Potassium [Cozaar] 100 mg PO DAILY #30 01/21/17 [Rx] Calcium Acetate [Phos-LO] 1,334 mg PO TID 02/25/17 [History] Insulin LISPRO [Humalog Kwikpen U-100] 5 unit SQ TID 02/25/17 [History] NIFEdipine [Nifedipine ER] 60 mg PO DAILY 02/25/17 [History] Renal Vitamin [Renal Caps Softgel] 1 mg PO DAILY 04/10/17 [History] traZODone [TraZODone] 50 mg PO HS 06/10/17 [History] Doxycycline 100 mg PO BID #10 capsule 06/12/17 [Rx] Albuterol Sulfate [Proair Hfa] 2 puff IH Q6H PRN 12/17/17 [History] Butalbital/Aspirin/Caffeine [Fiorinal 50-325-40 mg Capsule] 1 tab PO Q4H PRN [History] Cholecalciferol (D-3) [Vitamin D] 2,000 unit PO DAILY 12/17/17 [History] Furosemide [Lasix] 80 mg PO BID 12/17/17 [History] Ipratropium/Albuterol Neb [Duoneb] 3 ml IH Q4HR 12/17/17 [History] Metoprolol Succinate [Toprol Xl] 100 mg PO DAILY 12/17/17 [History] Sertraline [Zoloft] 50 mg PO DAILY 12/17/17 [History] 3 Allergy/AdvReac Type Severity Reaction Status Date / Time amitriptyline Allergy feels drunk Verified 04/10/17 08:42 amlodipine Allergy See Verified 04/10/17 08:42 Comments Amoxicillin [From Augmentin] Allergy Itching Verified 04/10/17 08:42 clavulanic acid Allergy Itching Verified 04/10/17 08:42 [From Augmentin] gabapentin [From Neurontin] Allergy make me Verified 04/10/17 08:42 sick at my stomach pregabalin [From Lyrica] Allergy Swelling Verified 04/10/17 08:42 of Lip/Tongue/Throat CAROLYN Inhibitors AdvReac Palpitation Verified 04/10/17 08:42 s fenofibrate [From Tricor] AdvReac See Verified 04/10/17 08:42 Comments Review of Systems ROS unobtainable: other (as per HPI ) Exam - Vital Signs Vital signs: Initial Vital Signs Pulse Ox 95 12/17/17 09:11 - General Appearance General appearance: well-developed, well-nourished EENT: ATNC, hearing intact, vision intact Neck: supple Respiratory: clear Cardiology: no edema, normal S1, normal S2 - Dialysis Access Dialysis Vascular Access: Arteriovenous Fistula thrill: Yes bruit: Yes Gastrointestinal: normoactive bowel sounds, no tenderness, no guarding Integumentary: no rash, warm and dry Neurologic: alert and oriented x3 Psychiatric: mood/affect appropriate, cooperative Results - Lab Results 12/17/17 09:24 12/17/17 09:24 Most recent lab results Calcium 9.2 mg/dL (8.6-10.3) 12/17/17 09:24 Consult Discharge Plan - Plan Referrals: Suresh Mendoza MD [Primary Care Provider] -
--- NOTE | 2017-12-17 14:37 | Internal Med History&Physical ---
Date of Encounter: 12/17/17 Time of Encounter: 11:00 Internal Medicine - H&P: HPI Chief complaint: Shortness of breath Admitted From: Home History of present illness: Patient is a 57-year-old female with past medical history significant for asthma , hypertension, hyperlipidemia and diabetes who presents to the ER on 12/17/17 due to shortness of breath and wheezing. Patient reports a one-week history of difficulty breathing in addition to wheezing but denies any cough or fevers. Patient reports of multiple admissions within the last year for asthma exacerbation at hospitals in [facility]. Patient was concerned so came to the ER for evaluation. In the ER, patient was found to have acute hypoxic respiratory failure secondary to asthma exacerbation and was given Solu-Medrol and DuoNebs. Patient will be admitted to medical surgical floor for asthma exacerbation. Past Med Surg Social Fam HX - Past Medical History Medical history: arthritis, asthma, CHF, CVA, diabetes, dialysis, fibromyalgia, GERD, hyperlipidemia, hypertension, myocardial infarction, renal disease, other Additional medical history: neuropathy Psychiatric history: anxiety, depression - Past Surgical History Surgical History: , orthopedic, other Additional surgical history: d&c. right chest port. right ankle surgery - Social History Smoking Status: Former smoker Smokeless Tobacco Status: No Alcohol use: none Drug use: none - Family History Mother Adopted: No Family Member Ethnicity: Non- Living Status: Hx Family Cardiac Disorders: No Hx Family Respiratory Disorders: No Hx Family Cancer: Yes (Lung Ca) Hx Family GI Disorders: No Hx Family Endocrine Disorder: No Hx Family Neuromuscular Disorders: No Hx Family Neurologic Disorders: No Hx Family HEENT Disorders: No Hx Family Autoimmune Disorders: No Father Adopted: No Family Member Ethnicity: Non- Living Status: Hx Family Cardiac Disorders: No Hx Family Respiratory Disorders: Yes Hx Family Cancer: Yes (Lung Ca) Hx Family GI Disorders: No Hx Family Endocrine Disorder: No Hx Family Neuromuscular Disorders: No Hx Family Neurologic Disorders: No Hx Family HEENT Disorders: No Hx Family Autoimmune Disorders: No Internal Medicine - H&P: Meds Aspirin Enteric Coated [Aspirin EC] 81 mg PO DAILY 04/08/15 [History] Multivitamin [Multi-Day Vitamins] 1 tab PO DAILY 04/08/15 [History] Simvastatin [Zocor] 40 mg PO DAILY 04/08/15 [History] Omeprazole [PriLOSEC] 20 mg PO DAILY 12/06/15 [History] ALPRAZolam [Xanax 0.5 MG Tablet] 0.5 mg PO TID PRN 06/27/16 [History] Tizanidine HCl 2 mg PO TID PRN 06/27/16 [History] Budesonide/Formoterol 160/4.5 [Symbicort 160/4.5] 2 puff IH BIDR #1 inhaler [Rx] Ergocalciferol (VITAMIN D2) [Vitamin D2] 50,000 unit PO QWEEK 01/16/17 [History] Insulin DETEMIR [Levemir Flextouch] 10 unit SQ BID 01/16/17 [History] Losartan Potassium [Cozaar] 100 mg PO DAILY #30 01/21/17 [Rx] Calcium Acetate [Phos-LO] 1,334 mg PO TID 02/25/17 [History] Insulin LISPRO [Humalog Kwikpen U-100] 5 unit SQ TID 02/25/17 [History] NIFEdipine [Nifedipine ER] 60 mg PO DAILY 02/25/17 [History] Renal Vitamin [Renal Caps Softgel] 1 mg PO DAILY 04/10/17 [History] traZODone [TraZODone] 50 mg PO HS 06/10/17 [History] Doxycycline 100 mg PO BID #10 capsule 06/12/17 [Rx] Albuterol Sulfate [Proair Hfa] 2 puff IH Q6H PRN 12/17/17 [History] Butalbital/Aspirin/Caffeine [Fiorinal 50-325-40 mg Capsule] 1 tab PO Q4H PRN [History] Cholecalciferol (D-3) [Vitamin D] 2,000 unit PO DAILY 12/17/17 [History] Furosemide [Lasix] 80 mg PO BID 12/17/17 [History] Ipratropium/Albuterol Neb [Duoneb] 3 ml IH Q4HR 12/17/17 [History] Metoprolol Succinate [Toprol Xl] 100 mg PO DAILY 12/17/17 [History] Sertraline [Zoloft] 50 mg PO DAILY 12/17/17 [History] 3 Allergy/AdvReac Type Severity Reaction Status Date / Time amitriptyline Allergy feels drunk Verified 04/10/17 08:42 amlodipine Allergy See Verified 04/10/17 08:42 Comments Amoxicillin [From Augmentin] Allergy Itching Verified 04/10/17 08:42 clavulanic acid Allergy Itching Verified 04/10/17 08:42 [From Augmentin] gabapentin [From Neurontin] Allergy make me Verified 04/10/17 08:42 sick at my stomach pregabalin [From Lyrica] Allergy Swelling Verified 04/10/17 08:42 of Lip/Tongue/Throat CAROLYN Inhibitors AdvReac Palpitation Verified 04/10/17 08:42 s fenofibrate [From Tricor] AdvReac See Verified 04/10/17 08:42 Comments All Systems PM: A 10-system review of systems was performed and is negative for pertinent findings except as documented above in the HPI. - Constitutional Vitals: Temp Pulse Resp BP Pulse Ox 97.6 F 99 19 156/78 97 12/17/17 12:20 12/17/17 11:45 12/17/17 12:20 12/17/17 14:20 12/17/17 11:45 General appearance: Present: A&O X 3, no acute distress - Eye Eye exam: Present: normal appearance - ENT ENT exam: Present: mucous membranes moist - Respiratory Respiratory exam: Present: CTAB. Absent: accessory muscle use, rales, rhonchi, wheezes - Cardiovascular Cardiovascular exam: Present: RRR, +S1, +S2. Absent: diastolic murmur, gallop, rubs, systolic murmur - GI/Abdominal GI/Abdominal exam: Present: normal bowel sounds, soft, no peritoneal signs. Absent: distended, tenderness - Extremities Exam Extremities exam: Absent: pedal edema - Expanded Lower Extremities Exam Lower Leg exam: Absent: swelling - Neurological Exam Neurological exam: Present: oriented X3 - Psychiatric Psychiatric exam: Present: normal mood - Skin Skin exam: Present: normal color Internal Med - H&P Results - Labs CBC & Chem 7: 12/17/17 09:24 12/17/17 09:24 - Assessment and plan (1) Asthma exacerbation Current Visit: Yes Status: Acute Assessment and plan: Patient with multiple asthma exacerbations in the last year Will continue IV Solu-Medrol and DuoNeb started in the ER Will also consult pulmonology and appreciate recommendations Qualifiers: Asthma severity: moderate Asthma persistence: persistent Qualified Code(s ): J45.41 - Moderate persistent asthma with (acute) exacerbation (2) ESRD (end stage renal disease) on dialysis Current Visit: Yes Status: Acute Assessment and plan: Consult nephrology for hemodialysis (3) Diabetes Current Visit: No Status: Chronic Assessment and plan: Continue home dose of Levemir Qualifiers: Diabetes mellitus type: type 2 Diabetes mellitus senior care insulin use: with senior care use Diabetes mellitus complication status: with neurologic complications Diabetes mellitus complication detail: with polyneuropathy Qualified Code(s): E11.42 - Type 2 diabetes mellitus with diabetic polyneuropathy; Z79.4 - terminal superintendent (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; Z79.4 - care home ( 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; Z79.4 - terminal superintendent (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; Z79.4 - care home (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 (4) DVT prophylaxis Current Visit: No Status: Acute Assessment and plan: Subcutaneous heparin - Time Spent With Patient Total time spent is greater than 50% in coordination of care (as documented) at patient's floor/unit and/or counseling patient:
[2017-12-17] MEDS ORDERED: Naloxone 0.4 MG/ML INJ IVP PRN (14:54)
[2017-12-17] MEDS ORDERED: Acetaminophen/Butalbital/CaffeineTABLET PO PRN (14:58)
[2017-12-17] MEDS ORDERED: tiZANidine 4 MG TABLET PO PRN (14:58)
[2017-12-17] MEDS ORDERED: NON-FORMULARY MEDICATION 1 EACH EACH (Insulin Lispro [Humalog Kwikpen U-100] 5 UNIT) SQ SCH (15:00)
[2017-12-17] MEDS ORDERED: D5% in Water 1,000 ML IVC PRN (15:04)
[2017-12-17] MEDS ORDERED: Dextrose Gel 15 GM/37.5 ML TUBE PO PRN ×2 (15:04)
[2017-12-17] MEDS ORDERED: *HR* Dextrose 50 % in Water (Syg) 50 ML SYRINGE IVP PRN (15:04)
[2017-12-17] MEDS ORDERED: Acetaminophen 325 MG TABLET PO PRN (15:29)
[2017-12-17] MEDS: Furosemide 40 MG TABLET PO SCH (15:47)
[2017-12-17] MEDS: methylPREDNISolone 125 MG/2 ML VIAL IVP SCH (15:48)
[2017-12-17] MEDS: Ipratropium/Albuterol Neb 3 ML IH SCH ×2 (15:53→19:58)
--- NOTE | 2017-12-17 16:32 | Electrocardiograph Report ---
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
[2017-12-17] MEDS: Insulin LISPRO 300 UNITS/3 ML VIAL SQ SCH ×2 (17:09→21:55)
[2017-12-17] MEDS ORDERED: traZODone 50 MG TABLET PO SCH (21:00)
[2017-12-17] MEDS ORDERED: NON-FORMULARY MEDICATION 1 EACH EACH (Furosemide [Lasix] 80 MG) PO SCH (21:00)
[2017-12-17] MEDS ORDERED: Insulin DETEMIR 100 UNIT/ML X5UNITS SQ SCH (21:00)
[2017-12-17] MEDS: ALPRAZolam 0.5 MG TABLET PO PRN (21:54)
[2017-12-17] MEDS: Metoprolol XL (24 HR) Succ 50 MG TAB.ER.24H PO SCH (21:55)
[2017-12-17] MEDS: Insulin DETEMIR 100 UNIT/ML X5UNITS SQ SCH (21:55)
[2017-12-18] MEDS: methylPREDNISolone 125 MG/2 ML VIAL IVP SCH ×2 (00:10→08:04)
[2017-12-18] MEDS: Ipratropium/Albuterol Neb 3 ML IH SCH ×6 (03:55→19:56)
[2017-12-18 06:15] LABS: Immature Granulocytes % 0.4 % (0-4); Lymphocytes # 0.4 K/mcL (0.6-4.6); Lymphocytes % 6.1 %; Mean Corpuscular HGB Conc 32.2 g/dL (31.6-35.5); Mean Corpuscular Hemoglobin 28.9 pg (28.0-33.3); Mean Corpuscular Volume 89.6 fL (83.0-100.0); Mean Platelet Volume 10.2 fL (9.4-12.4); Monocytes # 0.1 K/mcL (0.0-1.3); Monocytes % 1.7 %; Neutrophils # 6.3 K/mcL (1.6-8.9); Platelet Count 176 K/mcL (140-400); Red Blood Count 4.02 M/mcL (3.82-4.97); Red Cell Distribution Width 14.5 % (11.5-14.5); Segmented Neutrophils % 91.8 %
[2017-12-18 06:16] LABS: Hemoglobin 11.6 g/dL (11.5-15.4)
[2017-12-18 06:18] LABS: Potassium 4.6 mEq/L (3.5-5.1)
[2017-12-18 06:19] LABS: Calcium 9.4 mg/dL (8.6-10.3)
[2017-12-18] MEDS: Renal Vitamin 1 CAP CAPSULE PO SCH (08:03)
[2017-12-18] MEDS: Metoprolol XL (24 HR) Succ 50 MG TAB.ER.24H PO SCH (08:03)
[2017-12-18] MEDS: Aspirin Enteric Coated 81 MG Tablet PO SCH (08:04)
[2017-12-18] MEDS: NIFEdipine XL (24 HR) 60 MG TAB.ER.24 PO SCH (08:04)
[2017-12-18] MEDS: Furosemide 40 MG TABLET PO SCH ×2 (08:04→16:44)
[2017-12-18] MEDS: Insulin LISPRO 300 UNITS/3 ML VIAL SQ SCH ×7 (08:05→21:12)
[2017-12-18] MEDS: Insulin DETEMIR 100 UNIT/ML X5UNITS SQ SCH ×2 (08:11→21:11)
[2017-12-18] MEDS ORDERED: Renal Vitamin 1 CAP CAPSULE PO SCH (09:00)
[2017-12-18] MEDS ORDERED: Metoprolol XL (24 HR) Succ 50 MG TAB.ER.24H PO SCH (09:00)
[2017-12-18] MEDS ORDERED: 0.9 % Sodium Chloride 250 ML IVC PRN (09:28)
[2017-12-18] MEDS ORDERED: 0.9 % Sodium Chloride 1,000 ML PRIME SCH (09:30)
[2017-12-18] MEDS ORDERED: 0.9 % Sodium Chloride 1,000 ML ONE (09:32)
--- NOTE | 2017-12-18 09:38 | Nephrology Progress Note ---
Date of Encounter: 12/18/17 Time of Encounter: 09:35 - Assessment and Plan (1) ESRD (end stage renal disease) on dialysis Current Visit: Yes Status: Acute Current regimen is TTS at [facility]. HD completed yesterday without consultation. Renal diet. Renal dose all medications and avoid nephrotoxins. Will do a short 2 hour ultrafiltration today. Will order additional UF and HD as needed. (2) Hyperkalemia Current Visit: Yes Status: Acute Resolved, 4.6 today. (3) Asthma exacerbation Current Visit: Yes Status: Acute Pulmonary consult. Qualifiers: Asthma severity: moderate Asthma persistence: persistent Qualified Code(s ): J45.41 - Moderate persistent asthma with (acute) exacerbation (4) Foot ulcer Current Visit: No Status: Acute Right foot wound noted upon examination. Recommend Tatum consult, she typically sees him for wound care. Qualifiers: Non-pressure ulcer stage: with fat layer exposed Qualified Code(s): L97.502 - Non-pressure chronic ulcer of other part of unspecified foot with fat layer exposed Subjective Principal diagnosis: ANGELINE Interval history: Patient seen and examined. Doing well. Denies chest pain, shortness of breath , nausea, vomiting and diarrhea. Overall she is feeling much better than yesterday. Objective - Vital Signs Vital signs: Vital Signs Temp Pulse Resp BP Pulse Ox 12/18/17 07:54 98.0 F 90 18 188/84 97 12/18/17 07:36 16 99 12/18/17 05:15 97.7 F 84 16 174/70 96 12/18/17 03:57 16 97 12/18/17 00:14 98.4 F 80 16 183/75 94 12/17/17 21:00 98.8 F 94 16 196/76 100 12/17/17 20:02 16 98 12/17/17 16:54 99.1 F 92 18 172/90 98 12/17/17 16:05 98.4 F 17 172/99 12/17/17 15:50 148/77 12/17/17 15:35 168/85 12/17/17 15:20 166/79 12/17/17 15:05 155/78 12/17/17 14:50 156/79 12/17/17 14:35 153/79 12/17/17 14:20 156/78 12/17/17 14:05 160/77 12/17/17 13:50 154/78 12/17/17 13:35 161/85 12/17/17 13:20 167/86 12/17/17 13:05 178/91 12/17/17 12:50 183/92 12/17/17 12:35 183/90 12/17/17 12:20 97.6 F 19 192/86 12/17/17 11:45 97.5 F L 99 18 177/102 97 Intake and Output 12/17/17 12/18/17 12/18/17 23:59 07:59 15:59 Intake Total 240 / 240 Output Total 3600 / 3600 Balance -3360 / -3360 Intake: Oral 240 / 240 Output: Urine 0 / 0 Total Dialysis (HD) Output 3600 / 3600 Other: Meal Dinner Percent of Meal Consumed 95% Blood Glucose* [id number] 306 Hemodialysis Net Fluid Removed 3000 (mL) - General Appearance General appearance: Present: well-developed, well-nourished EENT: Present: ATNC, hearing intact, vision intact Neck: Present: supple Respiratory: Present: clear Cardiology: Present: edema (Trace bilateral lower extremity edema.), normal S1, normal S2 Dialysis Vascular Access: Arteriovenous Fistula thrill: Yes bruit: Yes Gastrointestinal: Present: normoactive bowel sounds, no tenderness, no guarding Integumentary: Present: no rash, warm and dry Neurologic: Present: alert and oriented x3 Psychiatric: Present: mood/affect appropriate, cooperative - Lab 12/18/17 05:40 12/18/17 05:40 Most recent lab results Calcium 9.4 mg/dL (8.6-10.3) 12/18/17 05:40 Consult Discharge Plan - Plan Referrals: Suresh Mendoza MD [Primary Care Provider] -
[2017-12-18] MEDS: Calcium Acetate 667 MG CAPSULE PO SCH ×2 (11:16→16:44)
--- NOTE | 2017-12-18 14:30 | Internal Med Progress Note ---
Hospitalist Progress Note - Encounter Date of Encounter: 12/18/17 Time of Encounter: 14:27 - Subjective Interval History: 57 F with Uncontrolled DM, ESRD on HD, COPD, Admitted and being managed for COPDE She has no new complains Breathing has improved and she is not requiring supplemental O2 but likes to keep it on She is seen and evaluated at bedside with family, in clinically stable condition Awaiting podiatry eval - Exam Vitals: Temp Pulse Resp BP Pulse Ox 97.6 F 94 16 151/84 98 12/18/17 13:20 12/18/17 10:17 12/18/17 13:20 12/18/17 13:20 12/18/17 10:17 Exam: VSS Gen: Speaks full sentences, not in distress HEENT: Moist roal mucosa, not pale, anciteric Chest: CTAB, no added sounds Heart: S1, S2 only, no m/g/r Abdomen: Soft, not tender, no palpably enlarged organs Skin: No rash Psych: Normal affect Neuro: AAOX3, no focal deficits Extremities: No pedal edema, Right ankle Lat malleulous wound , covered with band aid. LEft hand monteiro wound, not infected. Right heel necrotic scar - Assessment and Plan (1) Diabetes Current Visit: Yes Status: Chronic Assessment and Plan: Continue home dose of Levemir, sldiing scale and meal time insulin (2) DVT prophylaxis Current Visit: Yes Status: Acute Assessment and Plan: Subcutaneous heparin (3) Asthma exacerbation Current Visit: Yes Status: Acute Assessment and Plan: Patient with multiple asthma exacerbations in the last year Continue current management Patient is not in distress Patient stated she is awaiting pulm eval, will follow recs (4) ESRD (end stage renal disease) on dialysis Current Visit: Yes Status: Chronic Assessment and Plan: management per renal - Time Spent with Patient Total time spent is greater than 50% in coordination of care (as documented) at patient's floor/unit and/or counseling patient: Internal Medicine: Result - Labs CBC & Chem 7: 12/18/17 05:40 12/18/17 05:40 Labs: Short CBC 12/18/17 Range/Units 05:40 WBC 6.9 (4.3-11.1) K/mcL Hgb 11.6 D (11.5-15.4) g/dL Hct 36.0 (35.3-44.9) % Plt Count 176 (140-400) K/mcL Neutrophils # 6.3 (1.6-8.9) K/mcL BMP 12/18/17 05:40 Sodium 135 L Potassium 4.6 Chloride 96 L Carbon Dioxide 23 BUN 41 H Creatinine 5.82 H Glucose 330 H Calcium 9.4 - ABG Interpretation ABG results: PT/INR, D-dimer PT 12.4 Seconds (9.4-12.1) H 12/17/17 09:24 Consult Discharge Plan - Plan Referrals: Suresh Mendoza MD [Primary Care Provider] - (1) Diabetes Qualifiers: Diabetes mellitus type: type 2 Diabetes mellitus bed bug exterminator insulin use: with bed bug exterminator use Diabetes mellitus complication status: with neurologic complications Diabetes mellitus complication detail: with polyneuropathy Qualified Code(s): E11.42 - Type 2 diabetes mellitus with diabetic polyneuropathy; Z79.4 - halfway (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; Z79.4 - halfway ( 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; Z79.4 - bed bug exterminator (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; Z79.4 - bed bug exterminator (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 (3) Asthma exacerbation Qualifiers: Asthma severity: moderate Asthma persistence: persistent Qualified Code(s): J45.41 - Moderate persistent asthma with (acute) exacerbation
--- NOTE | 2017-12-18 15:24 | Pulmonology Consult Note ---
Addendum entered and electronically signed by Franklin Dai 12/18/17 17:25 : Patient states her renal dysfunction has been due to hypertension and diabetes. Due to her respiratory disease in conjunction with renal disease we will order an ANCA level to investigate possibility of coordinated autoimmune disease. Original Note: <DaiZoraFranklin C - Last Filed: 12/18/17 17:18> Date of Encounter: 12/18/17 Time of Encounter: 15:12 Assessment and Plan (1) Asthma exacerbation Current Visit: Yes Status: Acute Patient has chronic asthma history with persistent exacerbations Her weekly symptoms are mild persistent but the frequency and severity of her exacerbations indicate more severe underlying disease, unless these exacerbations are secondary to another disease process She has a history of congestive heart failure and evidence of pulmonary edema and effusion on CXR, as well as increased BNP on admission, it is possible these pulmonary symptoms are more secondary to CHF than asthma Her most recent echocardiogram in May of his year showed an LVEF of 55% with moderate pulmonary hypertension and mild to severe chamber dilatation However she also has a history of exposure to respiratory irritants and asthma exacerbations This patient may require further pulmonary and cardiac work up as well as education on cardiac diet and avoiding asthma triggers Her respiratory symptoms are currently well controlled and she is ventilating and saturating well on room air Continue solumedrol and duonebs, continue home symbicort, consider additional leukotriene inhibitor triple therapy I suspect this is more CHF than asthma, we will monitor and transition to oral steroid taper as her respiratory condition stays stable Qualifiers: Asthma severity: moderate Asthma persistence: persistent Qualified Code(s ): J45.41 - Moderate persistent asthma with (acute) exacerbation (2) ESRD (end stage renal disease) on dialysis Current Visit: Yes Status: Chronic Patient receiving dialysis, will defer to nephrology who is consulted (3) Diabetes Current Visit: Yes Status: Chronic Diabetes mellitus with evidence of diabetic ulcers and neuropathy, will defer to primary team management Qualifiers: Diabetes mellitus type: type 2 Diabetes mellitus terminal gauger insulin use: with alf use Diabetes mellitus complication status: with neurologic complications Diabetes mellitus complication detail: with polyneuropathy Qualified Code(s): E11.42 - Type 2 diabetes mellitus with diabetic polyneuropathy; Z79.4 - [facility] (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; Z79.4 - [facility] ( 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; Z79.4 - [facility] (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; Z79.4 - [facility] (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 (4) Congestive heart failure Current Visit: Yes Status: Acute Patient has history of CHF with evidence of pulmonary edema and effusion on imaging and exam, as well as elevated BNP Nephrology is consulted, will defer to their recommendation and primary team management Qualifiers: Heart failure type: unspecified Heart failure chronicity: unspecified Qualified Code(s): I50.9 - Heart failure, unspecified History of Present Illness Consult date: 12/18/17 Requesting physician: Tremaine Portillo Reason for consult: asthma Chief complaint: asthma exacerbation History of present illness: Patient is a 57 y/o female wit a past medical history of asthma, CHF, CVA, diabetes, dialysis, fibromyalgia, GERD, hyperlipidemia, hypertension, myocardial infarction, renal disease, and multiple asthma exacerbations requiring hospitalization in the last year. She is a former smoker with a sporadic pack year history that is difficult to quantify, she states that she does not currently smoke. She lives in a house with dogs and cats and has never been tested for allergies. She also grew up in [place] [employer]. She did not mention work exposure. She states her last hospitalization was in September, and for the last year she has had multiple hospitalizations for asthma exacerbation and pneumonia. She sates that in the past year she been able to complete most ADLs without shortness of breath but suffers from dyspnea on exertion, such as with climbing stairs. She states she uses her albuterol inhaler about twice per week, her asthma symptoms do not wake her up, and she uses her combivent 4-5 times per week. She presented to [facility] ED for difficulty breathing and was admitted for acute respiratory failure secondary to asthma exacerbation, started on Solumedrol and Duonebs. CXR at admission showed pulmonary edema and small pleural effusion indicative of CHF exacerbation which patient does have a history of. Past Med Surg Social Fam HX - Past Medical History Medical history: arthritis, asthma, CHF, CVA, diabetes, dialysis, fibromyalgia, GERD, hyperlipidemia, hypertension, myocardial infarction, renal disease, other Additional medical history: neuropathy Psychiatric history: anxiety, depression - Past Surgical History Surgical History: , orthopedic, other Additional surgical history: d&c. right chest port. right ankle surgery - Social History Smoking Status: Former smoker Smokeless Tobacco Status: No Alcohol use: none Drug use: none - Family History Mother Adopted: No Family Member Ethnicity: Non- Living Status: Hx Family Cardiac Disorders: No Hx Family Respiratory Disorders: No Hx Family Cancer: Yes (Lung Ca) Hx Family GI Disorders: No Hx Family Endocrine Disorder: No Hx Family Neuromuscular Disorders: No Hx Family Neurologic Disorders: No Hx Family HEENT Disorders: No Hx Family Autoimmune Disorders: No Father Adopted: No Family Member Ethnicity: Non- Living Status: Hx Family Cardiac Disorders: No Hx Family Respiratory Disorders: Yes Hx Family Cancer: Yes (Lung Ca) Hx Family GI Disorders: No Hx Family Endocrine Disorder: No Hx Family Neuromuscular Disorders: No Hx Family Neurologic Disorders: No Hx Family HEENT Disorders: No Hx Family Autoimmune Disorders: No Medications and Allergies Aspirin Enteric Coated [Aspirin EC] 81 mg PO DAILY 04/08/15 [History] Multivitamin [Multi-Day Vitamins] 1 tab PO DAILY 04/08/15 [History] Simvastatin [Zocor] 40 mg PO DAILY 04/08/15 [History] ALPRAZolam [Xanax 0.5 MG Tablet] 0.5 mg PO TID PRN 06/27/16 [History] Tizanidine HCl 2 mg PO TID PRN 06/27/16 [History] Budesonide/Formoterol 160/4.5 [Symbicort 160/4.5] 2 puff IH BIDR #1 inhaler [Rx] Ergocalciferol (VITAMIN D2) [Vitamin D2] 50,000 unit PO QWEEK 01/16/17 [History] Insulin DETEMIR [Levemir Flextouch] 10 unit SQ BID 01/16/17 [History] Losartan Potassium [Cozaar] 100 mg PO DAILY #30 01/21/17 [Rx] Calcium Acetate [Phos-LO] 1,334 mg PO TID 02/25/17 [History] Insulin LISPRO [Humalog Kwikpen U-100] 5 unit SQ TID 02/25/17 [History] NIFEdipine [Nifedipine ER] 60 mg PO DAILY 02/25/17 [History] Renal Vitamin [Renal Caps Softgel] 1 mg PO DAILY 04/10/17 [History] Doxycycline 100 mg PO BID #10 capsule 06/12/17 [Rx] Albuterol Sulfate [Proair Hfa] 2 puff IH Q6H PRN 12/17/17 [History] Butalbital/Aspirin/Caffeine [Fiorinal 50-325-40 mg Capsule] 1 tab PO Q4H PRN [History] Cholecalciferol (D-3) [Vitamin D] 2,000 unit PO DAILY 12/17/17 [History] Furosemide [Lasix] 80 mg PO BID 12/17/17 [History] Ipratropium/Albuterol Neb [Duoneb] 3 ml IH Q4HR 12/17/17 [History] Metoprolol Succinate [Toprol Xl] 100 mg PO DAILY 12/17/17 [History] Sertraline [Zoloft] 50 mg PO DAILY 12/17/17 [History] 3 Allergy/AdvReac Type Severity Reaction Status Date / Time amitriptyline Allergy feels drunk Verified 04/10/17 08:42 amlodipine Allergy See Verified 04/10/17 08:42 Comments Amoxicillin [From Augmentin] Allergy Itching Verified 04/10/17 08:42 clavulanic acid Allergy Itching Verified 04/10/17 08:42 [From Augmentin] gabapentin [From Neurontin] Allergy make me Verified 04/10/17 08:42 sick at my stomach pregabalin [From Lyrica] Allergy Swelling Verified 04/10/17 08:42 of Lip/Tongue/Throat CAROLYN Inhibitors AdvReac Palpitation Verified 04/10/17 08:42 s fenofibrate [From Tricor] AdvReac See Verified 04/10/17 08:42 Comments All Systems: The remainder of the systems were reviewed and are negative Review of Systems: Patient currently complains of numbness in hands and feet. Patient currently denies shortness of breath, chest pain, fever or chills, abdominal pain, nausea or vomiting, lightheadedness, headache. Physical Examination Vital Signs: Vital Signs, Last 4 Hours Temp Resp BP 12/18/17 13:20 97.6 F 16 151/84 12/18/17 12:35 150/78 12/18/17 12:20 158/84 12/18/17 12:05 153/82 12/18/17 11:50 146/82 12/18/17 11:35 202/108 12/18/17 11:20 204/109 Patient in no acute distress,alert and oriented x 3, normal affect, follows commands Ventilating and saturating appropriately on room air Heart in regular rate and rhythm, no murmur, gallop heard in pulmonic post Lungs clear to auscultation, no wheeze or rhonchi, diminished in left lower lung Abdomen obese, soft and non tender Legs non edematous, sensation diminished Skin warm and dry Results - Laboratory Findings CBC and BMP: 12/18/17 05:40 12/18/17 05:40 PT/INR, D-dimer PT 12.4 Seconds (9.4-12.1) H 12/17/17 09:24 Abnormal lab findings: Abnormal lab results Lymphocytes # 0.4 K/mcL (0.6-4.6) L 12/18/17 05:40 PT 12.4 Seconds (9.4-12.1) H 12/17/17 09:24 Sodium 135 mEq/L (136-145) L 12/18/17 05:40 Chloride 96 mEq/L (98-107) L 12/18/17 05:40 BUN 41 mg/dL (6-20) H 12/18/17 05:40 Creatinine 5.82 mg/dL (0.60-1.20) H 12/18/17 05:40 Est GFR ( Amer) 9 (> 60) L 12/18/17 05:40 Est GFR (Non-Af Amer) 7 (> 60) L 12/18/17 05:40 Glucose 330 mg/dL (70-105) H 12/18/17 05:40 POC Glucose 225 mg/dL (70-99) H 12/17/17 16:53 Calculated Osmolality 303 (280-300) H 12/18/17 05:40 B-Natriuretic Peptide 2046 pg/mL (Less than 100) H 12/17/17 09:24 - Clinical Findings Intake & Output: Intake & Output 12/17/17 12/18/17 12/18/17 23:59 07:59 15:59 Intake Total 240 / 240 600 / 600 Output Total 3600 / 3600 3600 / 3600 Balance -3360 / -3360 -3000 / -3000 Consult Discharge Plan - Plan Referrals: Suresh Mendoza MD [Primary Care Provider] - <Billy Antonio - Last Filed: 12/18/17 17:33> Date of Encounter: 12/18/17 All Systems: The remainder of the systems were reviewed and are negative Physical Examination Vital Signs: Vital Signs, Last 4 Hours Temp Pulse Resp BP Pulse Ox 12/18/17 16:17 16 96 12/18/17 15:51 97.7 F 85 17 158/66 97 Results - Laboratory Findings CBC and BMP: 12/18/17 05:40 12/18/17 05:40 PT/INR, D-dimer PT 12.4 Seconds (9.4-12.1) H 12/17/17 09:24 Abnormal lab findings: Abnormal lab results Lymphocytes # 0.4 K/mcL (0.6-4.6) L 12/18/17 05:40 PT 12.4 Seconds (9.4-12.1) H 12/17/17 09:24 Sodium 135 mEq/L (136-145) L 12/18/17 05:40 Chloride 96 mEq/L (98-107) L 12/18/17 05:40 BUN 41 mg/dL (6-20) H 12/18/17 05:40 Creatinine 5.82 mg/dL (0.60-1.20) H 12/18/17 05:40 Est GFR ( Amer) 9 (> 60) L 12/18/17 05:40 Est GFR (Non-Af Amer) 7 (> 60) L 12/18/17 05:40 Glucose 330 mg/dL (70-105) H 12/18/17 05:40 POC Glucose 225 mg/dL (70-99) H 12/17/17 16:53 Calculated Osmolality 303 (280-300) H 12/18/17 05:40 B-Natriuretic Peptide 2046 pg/mL (Less than 100) H 12/17/17 09:24 - Clinical Findings Intake & Output: Intake & Output 12/18/17 12/18/17 12/18/17 07:59 15:59 23:59 Intake Total 600 / 600 Output Total 3600 / 3600 Balance -3000 / -3000 - Attending Attestation I examined this patient and my medical decision-making was reviewed with the Resident Physician. I agree with the documented findings, disposition and treatment plan as described except to the extent set forth below. Patient seen and examined. Labs, radiology, chart personally reviewed. Agree with resident's history and physical, assessment, plan with following comments: SWATCH FOLDER: Patient follows commands, Pulmonary: Acceptable oxygenation and ventilation. This patient is being diagnosed with asthma, however I suspect this is most likely fluid overload and she needs a workup as outpatient. Also she has never had workup fVasculitis and need to check ANCA on her Cardiovascular: stable Patient will need to follow-up as outpatient and she will need Pulmonary function test and continue bronchodilator with transition to oral steroid and taper.
[2017-12-18] MEDS: predniSONE 20 MG TABLET PO SCH (16:44)
[2017-12-18] MEDS: Budesonide/Formoterol 160/4.5 MDI IH SCH (19:57)
[2017-12-18] MEDS: ALPRAZolam 0.5 MG TABLET PO PRN (22:24)
[2017-12-19] MEDS: Ipratropium/Albuterol Neb 3 ML IH SCH ×7 (00:06→23:54)
[2017-12-19 06:13] LABS: Basophils % 0.1 %; Hematocrit 37.2 % (35.3-44.9); Hemoglobin 12.1 g/dL (11.5-15.4); Immature Granulocytes % 0.5 % (0-4); Lymphocytes # 0.7 K/mcL (0.6-4.6); Lymphocytes % 5.7 %; Mean Corpuscular HGB Conc 32.5 g/dL (31.6-35.5); Mean Corpuscular Hemoglobin 29.6 pg (28.0-33.3); Mean Platelet Volume 10.5 fL (9.4-12.4); Monocytes # 0.4 K/mcL (0.0-1.3); Monocytes % 3.1 %; Neutrophils # 11.7 K/mcL (1.6-8.9); Platelet Count 176 K/mcL (140-400); Red Blood Count 4.09 M/mcL (3.82-4.97); Red Cell Distribution Width 14.4 % (11.5-14.5); Segmented Neutrophils % 90.6 %
[2017-12-19 06:23] LABS: Calcium 9.2 mg/dL (8.6-10.3); Potassium 5.6 mEq/L (3.5-5.1)
[2017-12-19] MEDS: Budesonide/Formoterol 160/4.5 MDI IH SCH ×2 (07:19→20:27)
[2017-12-19] MEDS ORDERED: 0.9 % Sodium Chloride 250 ML IVC PRN (07:39)
[2017-12-19] MEDS ORDERED: 0.9 % Sodium Chloride 1,000 ML PRIME SCH (07:45)
[2017-12-19] MEDS ORDERED: 0.9 % Sodium Chloride 1,000 ML ONE (07:59)
--- NOTE | 2017-12-19 09:19 | Nephrology Progress Note ---
Date of Encounter: 12/19/17 Time of Encounter: 09:17 - Assessment and Plan (1) ESRD (end stage renal disease) on dialysis Current Visit: Yes Status: Chronic Current regimen is TTS at [facility]. HD in progress. Renal diet. Renal dose all medications and avoid nephrotoxins. Will order additional UF and HD as needed. (2) Hyperkalemia Current Visit: Yes Status: Acute Potassium is 5.6, will correct with hemodialysis. Continue renal diet if able to eat. (3) Asthma exacerbation Current Visit: Yes Status: Acute Per pulmonology. Qualifiers: Asthma severity: moderate Asthma persistence: persistent Qualified Code(s ): J45.41 - Moderate persistent asthma with (acute) exacerbation (4) Foot ulcer Current Visit: No Status: Acute Wound care consulted yesterday. Qualifiers: Non-pressure ulcer stage: with fat layer exposed Qualified Code(s): L97.502 - Non-pressure chronic ulcer of other part of unspecified foot with fat layer exposed (5) Hypertension Current Visit: No Status: Chronic 2 hours of UF completed yesterday to help with HTN. Yesterday morning before UF BP was 202/79 and 226/114. This a.m. before dialysis was started BP was 156/72 and 145/68. Qualifiers: Hypertension type: essential hypertension Qualified Code(s): I10 - Essential (primary) hypertension Subjective Principal diagnosis: ANGELINE Interval history: Patient seen and examined during HD. Doing well. Denies chest pain, shortness of breath, nausea, vomiting and diarrhea. She is feeling better. Objective - Vital Signs Vital signs: Vital Signs Temp Pulse Resp BP Pulse Ox 12/19/17 07:21 16 97 12/19/17 06:54 97.9 F 79 16 145/68 98 12/19/17 05:23 98 F 85 17 156/72 97 12/19/17 03:54 16 98 12/19/17 01:49 97.7 F 81 16 145/66 98 12/18/17 20:16 98.4 F 93 16 168/78 97 12/18/17 20:00 16 97 12/18/17 16:17 16 96 12/18/17 15:51 97.7 F 85 17 158/66 97 12/18/17 13:20 97.6 F 16 151/84 12/18/17 12:35 150/78 12/18/17 12:20 158/84 12/18/17 12:05 153/82 12/18/17 11:50 146/82 12/18/17 11:35 202/108 12/18/17 11:20 204/109 12/18/17 11:05 209/99 12/18/17 10:50 207/111 12/18/17 10:35 98.2 F 18 226/114 12/18/17 10:17 99.0 F 94 18 202/79 98 Intake and Output 12/18/17 12/19/17 12/19/17 23:59 07:59 15:59 Intake Total 240 / 240 Balance 240 / 240 Intake: Oral 240 / 240 Other: Meal Dinner Percent of Meal Consumed 100% Weight 102.69 kg Blood Glucose* 400 262 Patient Weight 12/19/17 23:59 Weight 102.69 kg - General Appearance General appearance: Present: well-developed, well-nourished EENT: Present: ATNC, hearing intact, vision intact Neck: Present: supple Respiratory: Present: clear, wheezing (slight wheeze bilat lower lobes.) Cardiology: Present: normal S1, normal S2 Dialysis Vascular Access: Arteriovenous Fistula thrill: Yes bruit: Yes Gastrointestinal: Present: normoactive bowel sounds, no tenderness, no guarding Integumentary: Present: no rash, warm and dry Neurologic: Present: alert and oriented x3 Psychiatric: Present: mood/affect appropriate, cooperative - Lab 12/19/17 05:58 12/19/17 05:58 Most recent lab results Calcium 9.2 mg/dL (8.6-10.3) 12/19/17 05:58 Consult Discharge Plan - Plan Referrals: Suresh Mendoza MD [Primary Care Provider] -
--- NOTE | 2017-12-19 09:34 | Pulmonology Progress Note ---
<SuhasFranklin C - Last Filed: 12/19/17 09:29> Date of Encounter: 12/19/17 Time of Encounter: 09:29 Assessment and Plan (1) Congestive heart failure Current Visit: Yes Status: Acute I believe the primary cause of this patients shortness of breath is heart failure Her admission CXR showed pulmonary edema and effusion Her admission BNP was over 2000 SHe takes Lasix at home She complains of shortness of breath on exertion, predictably when climbing stairs She has documented diastolic dysfunction and hypertrophy on echocardiogram She also has asthma but her symptoms will unlikely resolve without addressing her heart failure She also has a systolic murmur at the aortic post I have not seen documented on previous exams Qualifiers: Heart failure type: diastolic Heart failure chronicity: acute on chronic Qualified Code(s): I50.33 - Acute on chronic diastolic (congestive) heart failure (2) Asthma exacerbation Current Visit: Yes Status: Acute This patient has likely mild to moderate persistent asthma worsened by CHF and deconditioning. She has not been on Symbicort at home, we have started that here which I recommend continue at discharge I ave ordered Incentive Spirometry for use during admission Recommend outpatient follow up for PFTs Oral steroid taper and bronchodilator She will likely also benefit from PT consult as she is physically deconditioned which I believe is contributing to her symptoms Qualifiers: Asthma severity: moderate Asthma persistence: persistent Qualified Code(s ): J45.41 - Moderate persistent asthma with (acute) exacerbation (3) ESRD (end stage renal disease) on dialysis Current Visit: Yes Status: Chronic Chronic renal failure managed by nephrology Due to her asthma and renal failure ordered ANCA to assess possibility of autoimmune disease (4) Diabetes Current Visit: Yes Status: Chronic Chronic diabetes managed by primary team Qualifiers: Diabetes mellitus type: type 2 Diabetes mellitus long-term insulin use: with long-term use Diabetes mellitus complication status: with neurologic complications Diabetes mellitus complication detail: with polyneuropathy Qualified Code(s): E11.42 - Type 2 diabetes mellitus with diabetic polyneuropathy; Z79.4 - rn long term care (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; Z79.4 - rn long term care ( 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; Z79.4 - longterm (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; Z79.4 - longterm (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 Subjective Principal diagnosis: Heart Failure Interval history: Ms. Rosario states she is still short of breath but otherwise well this morning. I discussed with her that her shortness of breath is likely multifactorial due to asthma, heart failure, and deconditioning. She denied chest pain, abdominal pain, nausea or vomiting. He did mention hair loss and a family history of thyroid disease so I have put in a TSH. Objective PUL Vital signs: Last Vital Signs Temp 97.9 F 12/19/17 06:54 Pulse 79 12/19/17 06:54 Resp 16 12/19/17 07:21 BP 145/68 12/19/17 06:54 Pulse Ox 97 12/19/17 07:21 Patient in no acute distress, Alert and oriented x 3, following commands Ventilating and saturating appropriately on 2L nasal cannula Heart in regular rate and rhythm, 3/6 systolic murmur at aortic post, no gallop Lungs are clear to auscultation bilaterally, no wheeze/rhonchi/rales/ dimiinished breath sounds Abdomen soft and non tender Legs non edematous Skin warm and dry Results - Laboratory Findings CBC and BMP: 12/19/17 05:58 12/19/17 05:58 PT/INR, D-dimer PT 12.4 Seconds (9.4-12.1) H 12/17/17 09:24 Abnormal lab findings: Abnormal lab results WBC 12.9 K/mcL (4.3-11.1) H D 12/19/17 05:58 Neutrophils # 11.7 K/mcL (1.6-8.9) H 12/19/17 05:58 PT 12.4 Seconds (9.4-12.1) H 12/17/17 09:24 Sodium 130 mEq/L (136-145) L 12/19/17 05:58 Potassium 5.6 mEq/L (3.5-5.1) H 12/19/17 05:58 Chloride 93 mEq/L (98-107) L 12/19/17 05:58 Carbon Dioxide 20 mEq/L (23-29) L 12/19/17 05:58 BUN 73 mg/dL (6-20) H 12/19/17 05:58 Creatinine 7.97 mg/dL (0.60-1.20) H 12/19/17 05:58 Est GFR ( Amer) 6 (> 60) L 12/19/17 05:58 Est GFR (Non-Af Amer) 5 (> 60) L 12/19/17 05:58 Glucose 313 mg/dL (70-105) H 12/19/17 05:58 POC Glucose 400 mg/dL (70-99) H 12/18/17 20:13 Calculated Osmolality 303 (280-300) H 12/19/17 05:58 B-Natriuretic Peptide 2046 pg/mL (Less than 100) H 12/17/17 09:24 - Clinical Findings Intake & Output: Intake & Output 12/18/17 12/19/17 12/19/17 23:59 07:59 15:59 Intake Total 240 / 240 Balance 240 / 240 Weight 102.69 kg Consult Discharge Plan - Plan Referrals: Suresh Mendoza MD [Primary Care Provider] - <Billy Antonio - Last Filed: 12/19/17 11:35> Date of Encounter: 12/19/17 Objective PUL Vital signs: Last Vital Signs Temp 96.8 F L 12/19/17 09:00 Pulse 79 12/19/17 06:54 Resp 18 12/19/17 09:00 BP 111/58 12/19/17 11:00 Pulse Ox 97 12/19/17 07:21 Results - Laboratory Findings CBC and BMP: 12/19/17 05:58 12/19/17 05:58 PT/INR, D-dimer PT 12.4 Seconds (9.4-12.1) H 12/17/17 09:24 Abnormal lab findings: Abnormal lab results WBC 12.9 K/mcL (4.3-11.1) H D 12/19/17 05:58 Neutrophils # 11.7 K/mcL (1.6-8.9) H 12/19/17 05:58 PT 12.4 Seconds (9.4-12.1) H 12/17/17 09:24 Sodium 130 mEq/L (136-145) L 12/19/17 05:58 Potassium 5.6 mEq/L (3.5-5.1) H 12/19/17 05:58 Chloride 93 mEq/L (98-107) L 12/19/17 05:58 Carbon Dioxide 20 mEq/L (23-29) L 12/19/17 05:58 BUN 73 mg/dL (6-20) H 12/19/17 05:58 Creatinine 7.97 mg/dL (0.60-1.20) H 12/19/17 05:58 Est GFR ( Amer) 6 (> 60) L 12/19/17 05:58 Est GFR (Non-Af Amer) 5 (> 60) L 12/19/17 05:58 Glucose 313 mg/dL (70-105) H 12/19/17 05:58 POC Glucose 400 mg/dL (70-99) H 12/18/17 20:13 Calculated Osmolality 303 (280-300) H 12/19/17 05:58 B-Natriuretic Peptide 2046 pg/mL (Less than 100) H 12/17/17 09:24 - Clinical Findings Intake & Output: Intake & Output 12/18/17 12/19/17 12/19/17 23:59 07:59 15:59 Intake Total 240 / 240 600 / 600 Balance 240 / 240 600 / 600 Weight 102.69 kg - Attending Attestation I examined this patient and my medical decision-making was reviewed with the Resident Physician. I agree with the documented findings, disposition and treatment plan as described except to the extent set forth below. Patient seen and examined. Labs, radiology, chart personally reviewed. 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 Patient to have workup as outpatient as indicated in the consultation and removing fluid with dialysis will help. Follow-up on the serology ANCA and will need PFT as outpatient. She might need sleep study as well. Please call for any questions.
[2017-12-19] MEDS: Insulin LISPRO 300 UNITS/3 ML VIAL SQ SCH ×7 (10:06→21:05)
[2017-12-19] MEDS: NIFEdipine XL (24 HR) 60 MG TAB.ER.24 PO SCH (13:02)
[2017-12-19] MEDS: Renal Vitamin 1 CAP CAPSULE PO SCH (13:02)
[2017-12-19] MEDS: Metoprolol XL (24 HR) Succ 50 MG TAB.ER.24H PO SCH (13:02)
[2017-12-19] MEDS: Furosemide 40 MG TABLET PO SCH ×2 (13:02→16:35)
[2017-12-19] MEDS: Calcium Acetate 667 MG CAPSULE PO SCH ×3 (13:02→16:36)
[2017-12-19] MEDS: predniSONE 20 MG TABLET PO SCH (13:03)
[2017-12-19] MEDS: Aspirin Enteric Coated 81 MG Tablet PO SCH (13:03)
[2017-12-19] MEDS: Insulin DETEMIR 100 UNIT/ML X5UNITS SQ SCH (13:11)
--- NOTE | 2017-12-19 15:11 | Internal Med Progress Note ---
Hospitalist Progress Note - Encounter Date of Encounter: 12/19/17 Time of Encounter: 12:15 - Subjective Interval History: 57 F with Uncontrolled DM, ESRD on HD, COPD, Admitted and being managed for COPDE She has no new complains, seen during HD Breathing has improved and she is not requiring supplemental O2 - Exam Vitals: Temp Pulse Resp BP Pulse Ox 97.5 F L 79 18 151/84 97 12/19/17 12:43 12/19/17 06:54 12/19/17 12:43 12/19/17 12:43 12/19/17 12:30 Exam: VSS Gen: Speaks full sentences, not in distress HEENT: Moist roal mucosa, not pale, anciteric Chest: CTAB, no added sounds Heart: S1, S2 only, no m/g/r Abdomen: Soft, not tender, no palpably enlarged organs Skin: No rash Psych: Normal affect Neuro: AAOX3, no focal deficits Extremities: No pedal edema, Right ankle Lat malleulous wound , covered with band aid. LEft hand monteiro wound, not infected. Right heel necrotic scar - Assessment and Plan (1) Diabetes Current Visit: Yes Status: Chronic Assessment and Plan: Continue home dose of Levemir, sldiing scale and meal time insulin (2) ESRD (end stage renal disease) on dialysis Current Visit: Yes Status: Chronic Assessment and Plan: HD per renal (3) Asthma exacerbation Current Visit: Yes Status: Acute Assessment and Plan: Patient with multiple asthma exacerbations in the last year Continue current management Patient is not in distress Pulm eval noted, will follow work up (4) Congestive heart failure Current Visit: Yes Status: Acute Assessment and Plan: Chronic, diastolic, ECHO from 05/2017 noted Continue home doses of lasix and HD (5) DVT prophylaxis Current Visit: Yes Status: Acute Assessment and Plan: Subcutaneous heparin - Time Spent with Patient Total time spent is greater than 50% in coordination of care (as documented) at patient's floor/unit and/or counseling patient: Plan of Care Discussed with: patient Internal Medicine: Result - Labs CBC & Chem 7: 12/19/17 05:58 12/19/17 05:58 Labs: Short CBC 12/19/17 Range/Units 05:58 WBC 12.9 H D (4.3-11.1) K/mcL Hgb 12.1 (11.5-15.4) g/dL Hct 37.2 (35.3-44.9) % Plt Count 176 (140-400) K/mcL Neutrophils # 11.7 H (1.6-8.9) K/mcL BMP 12/19/17 05:58 Sodium 130 L Potassium 5.6 H Chloride 93 L Carbon Dioxide 20 L BUN 73 H Creatinine 7.97 H Glucose 313 H Calcium 9.2 - ABG Interpretation ABG results: PT/INR, D-dimer PT 12.4 Seconds (9.4-12.1) H 12/17/17 09:24 Consult Discharge Plan - Plan Referrals: Suresh Mendoza MD [Primary Care Provider] - (1) Diabetes Qualifiers: Diabetes mellitus type: type 2 Diabetes mellitus assistant terminal manager insulin use: with assistant terminal manager use Diabetes mellitus complication status: with neurologic complications Diabetes mellitus complication detail: with polyneuropathy Qualified Code(s): E11.42 - Type 2 diabetes mellitus with diabetic polyneuropathy; Z79.4 - termite helper (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; Z79.4 - termite helper ( 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; Z79.4 - termite helper (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; Z79.4 - custodial (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 (3) Asthma exacerbation Qualifiers: Asthma severity: moderate Asthma persistence: persistent Qualified Code(s): J45.41 - Moderate persistent asthma with (acute) exacerbation (4) Congestive heart failure Qualifiers: Heart failure type: diastolic Heart failure chronicity: acute on chronic Qualified Code(s): I50.33 - Acute on chronic diastolic (congestive) heart failure
--- NOTE | 2017-12-19 16:09 | Podiatry Consult Note ---
Date of Encounter: 12/19/17 Time of Encounter: 12:25 Assessment and Plan (1) Foot ulcer Current visit: No Status: Acute Barreto grade II ulceration to the right lateral malleolous secondary to pressure. Hemmorhaged callused lesion to sub #5 metatarsal right foot, s/p sharp cutting with a #15 sclapel blade to alleviate pressure revealed a barreto grade II ulceration. Callused lesion to sub #3 met head right foot. No signs of bacterial infection, no cellulitis, no lymphangitis. WBC: 12.9 Plan: Verbal consent obtained, risks vs. benefits discussed prior to debridement of ulceration to sub #5 metatarsal right foot and paring of callused lesion to sub #3 met head right foot. Sharp cutting performed with a #15 scalpel to alleviate pressure and gain true dimensions of wound. No complications, no active bleeding. Barreto grade II ulceration to plantar aspect of 5th metatarsal. Callused lesion to sub #3 met head right foot pared down with a #15 scalpel blade, no complications. Recommend wound care: cleanse ulcerations to right lateral ankle and sub #5 metatarsal right foot every other daily with mild soap and water, pat dry, apply allevyn. Keep pressure alleviated from right lateral ankle while in bed. Will order a heel medix boot for the right foot. Wear post op shoe to right foot. Follow up in wound care with Dr. Winn one week after discharge from hospital. Qualifiers: Laterality: right Non-pressure ulcer stage: limited to breakdown of skin Qualified Code(s): L97.511 - Non-pressure chronic ulcer of other part of right foot limited to breakdown of skin (2) Diabetic foot ulcer Current visit: No Status: Chronic Qualifiers: Diabetes mellitus type: type 2 Laterality: right Non-pressure ulcer stage : limited to breakdown of skin Qualified Code(s): E11.621 - Type 2 diabetes mellitus with foot ulcer; L97.511 - Non-pressure chronic ulcer of other part of right foot limited to breakdown of skin (3) ESRD (end stage renal disease) on dialysis Current visit: Yes Status: Chronic (4) History of end stage renal disease Current visit: No Status: Acute History of Present Illness HPI: Ms. Frederick is a 57 year old female admitted to [facility] for sob. Patient has a medical history significant for asthma, HTN, hyperlipidemia, and DM with Neuropathy, ESRD and on HD. Podiatry was consulted for ulcerations to the right ankle and foot. Patient has a history of recurrent ulcerations to the right ankle and foot since 2014 and has been treated in wound care. Patient was last seen in January of 2017 for an ulcer to the right lateral ankle that is secondary to pressure. Patient states the right ankle ulcer will heal then open back up. Patient states the right ankle ulcer has been open since her last appointment with Dr. Winn in January of 2017. Patient states she has not followed up for her ulcer and has been applying silvadene to the ulceration. Patient states Dr. Winn did give her a prescription for diabetic shoes but lost the prescription. Patient has a history of osteomyelitis to the 5th metatarsal head right foot and was treated with 6 weeks of IV antibiotics in 2014 at another facility. Per patient she had surgery of the right foot at another facility. Past Med Surg Social Fam HX - Past Medical History Medical history: arthritis, asthma, CHF, CVA, diabetes, dialysis, fibromyalgia, GERD, hyperlipidemia, hypertension, myocardial infarction, renal disease, other Additional medical history: neuropathy Psychiatric history: anxiety, depression - Past Surgical History Surgical History: , orthopedic, other Additional surgical history: d&c. right chest port. right ankle surgery - Social History Smoking Status: Former smoker Smokeless Tobacco Status: No Alcohol use: none Drug use: none - Family History Mother Adopted: No Family Member Ethnicity: Non- Living Status: Hx Family Cardiac Disorders: No Hx Family Respiratory Disorders: No Hx Family Cancer: Yes (Lung Ca) Hx Family GI Disorders: No Hx Family Endocrine Disorder: No Hx Family Neuromuscular Disorders: No Hx Family Neurologic Disorders: No Hx Family HEENT Disorders: No Hx Family Autoimmune Disorders: No Father Adopted: No Family Member Ethnicity: Non- Living Status: Hx Family Cardiac Disorders: No Hx Family Respiratory Disorders: Yes Hx Family Cancer: Yes (Lung Ca) Hx Family GI Disorders: No Hx Family Endocrine Disorder: No Hx Family Neuromuscular Disorders: No Hx Family Neurologic Disorders: No Hx Family HEENT Disorders: No Hx Family Autoimmune Disorders: No Medications and Allergies Aspirin Enteric Coated [Aspirin EC] 81 mg PO DAILY 04/08/15 [History] Multivitamin [Multi-Day Vitamins] 1 tab PO DAILY 04/08/15 [History] Simvastatin [Zocor] 40 mg PO DAILY 04/08/15 [History] ALPRAZolam [Xanax 0.5 MG Tablet] 0.5 mg PO TID PRN 06/27/16 [History] Tizanidine HCl 2 mg PO TID PRN 06/27/16 [History] Budesonide/Formoterol 160/4.5 [Symbicort 160/4.5] 2 puff IH BIDR #1 inhaler [Rx] Ergocalciferol (VITAMIN D2) [Vitamin D2] 50,000 unit PO QWEEK 01/16/17 [History] Insulin DETEMIR [Levemir Flextouch] 10 unit SQ BID 01/16/17 [History] Losartan Potassium [Cozaar] 100 mg PO DAILY #30 01/21/17 [Rx] Calcium Acetate [Phos-LO] 1,334 mg PO TID 02/25/17 [History] Insulin LISPRO [Humalog Kwikpen U-100] 5 unit SQ TID 02/25/17 [History] NIFEdipine [Nifedipine ER] 60 mg PO DAILY 02/25/17 [History] Renal Vitamin [Renal Caps Softgel] 1 mg PO DAILY 04/10/17 [History] Doxycycline 100 mg PO BID #10 capsule 06/12/17 [Rx] Albuterol Sulfate [Proair Hfa] 2 puff IH Q6H PRN 12/17/17 [History] Butalbital/Aspirin/Caffeine [Fiorinal 50-325-40 mg Capsule] 1 tab PO Q4H PRN [History] Cholecalciferol (D-3) [Vitamin D] 2,000 unit PO DAILY 12/17/17 [History] Furosemide [Lasix] 80 mg PO BID 12/17/17 [History] Ipratropium/Albuterol Neb [Duoneb] 3 ml IH Q4HR 12/17/17 [History] Metoprolol Succinate [Toprol Xl] 100 mg PO DAILY 12/17/17 [History] Sertraline [Zoloft] 50 mg PO DAILY 12/17/17 [History] 3 Allergy/AdvReac Type Severity Reaction Status Date / Time amitriptyline Allergy feels drunk Verified 04/10/17 08:42 amlodipine Allergy See Verified 04/10/17 08:42 Comments Amoxicillin [From Augmentin] Allergy Itching Verified 04/10/17 08:42 clavulanic acid Allergy Itching Verified 04/10/17 08:42 [From Augmentin] gabapentin [From Neurontin] Allergy make me Verified 04/10/17 08:42 sick at my stomach pregabalin [From Lyrica] Allergy Swelling Verified 04/10/17 08:42 of Lip/Tongue/Throat CAROLYN Inhibitors AdvReac Palpitation Verified 04/10/17 08:42 s fenofibrate [From Tricor] AdvReac See Verified 04/10/17 08:42 Comments All Systems Reviewed: Denies fever, denies cp, admits SOB, admits Chills. Physical Exam - Constitutional Vitals: Temp Pulse Resp BP Pulse Ox 98.1 F 83 17 165/77 98 12/19/17 16:00 12/19/17 16:00 12/19/17 16:00 12/19/17 16:00 12/19/17 16:00 Exam: General appearance: alert awake oriented X 3. Calm and pleasant, no acute distress.. Vascular: Pedal pulses +1/4 DP/PT , No evidence of cyanosis, pallor or rubor, Edema graded at 1+/4, Skin Temperature warm, No calf pain with manual compression. capillary refill time is immediate to digits. Neurologic: Sensation intact with light touch to both feet Ulcer: Barreto grade 2 ulcer to the lateral malleolous right foot measuring 1.2 cm in length x 1.5 cm in width x 0.2 cm in depth, base of wound with 100% red granulation tissue, wound edges are macerated, no periwound erythema, no cellulitis, no lymphangitis, no tunneling, no sinus tracts, no undermining, no exposed bone, ligament or tendon, no fluctuance. Hemmorhaged callused lesion to sub #5 metatarsal right foot, s/p sharp cutting with a #15 scalpel blade revealed a barreto grade 2 ulceration measuring 0.5 cm in diameter x 0.2 cm in depth. base of wound with 100% red granulation tissue, wound edges are macerated, no periwound erythema, no cellulitis, no lymphangitis , no tunneling, no sinus tracts, no undermining, no exposed bone, ligament or tendon, no fluctuance. Integument: Dried scab to the medial aspect of toe #1 left foot, no signs of bacterial infection, callused lesion to sub #3 met head left foot, no signs of bacterial infection Results - Labs Result Diagrams: 12/19/17 05:58 12/19/17 05:58 Labs: Abnormal lab results WBC 12.9 K/mcL (4.3-11.1) H D 12/19/17 05:58 Neutrophils # 11.7 K/mcL (1.6-8.9) H 12/19/17 05:58 PT 12.4 Seconds (9.4-12.1) H 12/17/17 09:24 Sodium 130 mEq/L (136-145) L 12/19/17 05:58 Potassium 5.6 mEq/L (3.5-5.1) H 12/19/17 05:58 Chloride 93 mEq/L (98-107) L 12/19/17 05:58 Carbon Dioxide 20 mEq/L (23-29) L 12/19/17 05:58 BUN 73 mg/dL (6-20) H 12/19/17 05:58 Creatinine 7.97 mg/dL (0.60-1.20) H 12/19/17 05:58 Est GFR ( Amer) 6 (> 60) L 12/19/17 05:58 Est GFR (Non-Af Amer) 5 (> 60) L 12/19/17 05:58 Glucose 313 mg/dL (70-105) H 12/19/17 05:58 POC Glucose 400 mg/dL (70-99) H 12/18/17 20:13 Calculated Osmolality 303 (280-300) H 12/19/17 05:58 B-Natriuretic Peptide 2046 pg/mL (Less than 100) H 12/17/17 09:24 H & H 12/19/17 Range/Units 05:58 Hgb 12.1 (11.5-15.4) g/dL Hct 37.2 (35.3-44.9) % All other labs normal. Consult Discharge Plan - Plan Referrals: Suresh Mendoza MD [Primary Care Provider] -
[2017-12-19] MEDS ORDERED: Insulin DETEMIR 100 UNIT/ML X5UNITS SQ SCH (21:00)
[2017-12-19] MEDS: ALPRAZolam 0.5 MG TABLET PO PRN (23:11)
[2017-12-20] MEDS: Ipratropium/Albuterol Neb 3 ML IH SCH ×5 (04:06→19:50)
[2017-12-20 05:24] LABS: Basophils % 0.1 %; Hematocrit 34.7 % (35.3-44.9); Hemoglobin 11.2 g/dL (11.5-15.4); Immature Granulocytes % 0.5 % (0-4); Lymphocytes # 1.2 K/mcL (0.6-4.6); Lymphocytes % 9.7 %; Mean Corpuscular HGB Conc 32.3 g/dL (31.6-35.5); Mean Corpuscular Hemoglobin 29.4 pg (28.0-33.3); Mean Corpuscular Volume 91.1 fL (83.0-100.0); Mean Platelet Volume 10.3 fL (9.4-12.4); Monocytes # 0.6 K/mcL (0.0-1.3); Monocytes % 4.7 %; Neutrophils # 10.6 K/mcL (1.6-8.9); Platelet Count 173 K/mcL (140-400); Red Blood Count 3.81 M/mcL (3.82-4.97); Red Cell Distribution Width 14.3 % (11.5-14.5)
[2017-12-20 05:37] LABS: Potassium 4.9 mEq/L (3.5-5.1)
[2017-12-20] MEDS: Budesonide/Formoterol 160/4.5 MDI IH SCH ×2 (07:43→19:50)
--- NOTE | 2017-12-20 08:45 | Pulmonology Progress Note ---
<Franklin Dai - Last Filed: 12/20/17 08:42> Date of Encounter: 12/20/17 Time of Encounter: 08:43 Assessment and Plan (1) Asthma exacerbation Current Visit: Yes Status: Acute Patient respiratory status stable today, ventilating and saturating appropriately on 2LNC Patient likely does not need supplemental oxygen at this point Continue current medical treatment Patient can follow up outpatient for PFTs, sleep study Qualifiers: Asthma severity: moderate Asthma persistence: persistent Qualified Code(s ): J45.41 - Moderate persistent asthma with (acute) exacerbation (2) Congestive heart failure Current Visit: Yes Status: Acute CHF being managed by primary care team Qualifiers: Heart failure type: diastolic Heart failure chronicity: acute on chronic Qualified Code(s): I50.33 - Acute on chronic diastolic (congestive) heart failure (3) ESRD (end stage renal disease) on dialysis Current Visit: Yes Status: Chronic Chronic renal failure managed by nephrology ANCA pending (4) Diabetes Current Visit: Yes Status: Chronic Chronic diabetes managed by primary team Qualifiers: Diabetes mellitus type: type 2 Diabetes mellitus assisted insulin use: with wrist hemmer use Diabetes mellitus complication status: with neurologic complications Diabetes mellitus complication detail: with polyneuropathy Qualified Code(s): E11.42 - Type 2 diabetes mellitus with diabetic polyneuropathy; Z79.4 - care home (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; Z79.4 - care home ( 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; Z79.4 - voltmeter operator (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; Z79.4 - voltmeter operator (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 Subjective Principal diagnosis: ANGELINE Interval history: Ms. Frederick states she is breathing well this morning, complains of a small amount of musculoskeletal pain in her right anterior chest when breathing. I informed her that she was stable from a pulmonary standpoint and that further workup could be done in the office, she understood and agreed. She denies shortness of breath or cardiac chest pain, lightheadedness, nausea or vomiting. Objective PUL Vital signs: Last Vital Signs Temp 97.5 F L 12/20/17 07:19 Pulse 76 12/20/17 07:19 Resp 16 12/20/17 07:42 BP 153/73 12/20/17 07:19 Pulse Ox 99 12/20/17 07:42 Patient in no acute distress, alert and oriented x 3, follows commands Heart in regular rate and rhythm without murmur or gallop, she has reproducible rib pain in the right chest and mid thoracic areas Lungs clear to auscultation, good expansion, no wheeze, rhonchi, or diminished breath sounds Abdomen soft and non tender Legs non edematous Skin warm and dry, there are multiple bandages on hands and feet Results - Laboratory Findings CBC and BMP: 12/20/17 04:57 12/20/17 04:57 PT/INR, D-dimer PT 12.4 Seconds (9.4-12.1) H 12/17/17 09:24 Abnormal lab findings: Abnormal lab results WBC 12.4 K/mcL (4.3-11.1) H 12/20/17 04:57 RBC 3.81 M/mcL (3.82-4.97) L 12/20/17 04:57 Hgb 11.2 g/dL (11.5-15.4) L 12/20/17 04:57 Hct 34.7 % (35.3-44.9) L 12/20/17 04:57 Neutrophils # 10.6 K/mcL (1.6-8.9) H 12/20/17 04:57 PT 12.4 Seconds (9.4-12.1) H 12/17/17 09:24 Sodium 133 mEq/L (136-145) L 12/20/17 04:57 Chloride 95 mEq/L (98-107) L 12/20/17 04:57 BUN 71 mg/dL (6-20) H 12/20/17 04:57 Creatinine 6.71 mg/dL (0.60-1.20) H 12/20/17 04:57 Est GFR ( Amer) 8 (> 60) L 12/20/17 04:57 Est GFR (Non-Af Amer) 6 (> 60) L 12/20/17 04:57 Glucose 273 mg/dL (70-105) H 12/20/17 04:57 POC Glucose 479 mg/dL (70-99) H* 12/19/17 19:46 Calculated Osmolality 307 (280-300) H 12/20/17 04:57 B-Natriuretic Peptide 2046 pg/mL (Less than 100) H 12/17/17 09:24 - Clinical Findings Intake & Output: Intake & Output 12/19/17 12/20/17 12/20/17 23:59 07:59 15:59 Intake Total 240 / 240 Output Total 0 / 0 Balance 240 / 240 Weight 102.5 kg Consult Discharge Plan - Plan Referrals: Suresh Mendoza MD [Primary Care Provider] - <Billy Antonio - Last Filed: 12/20/17 09:32> Date of Encounter: 12/20/17 Objective PUL Vital signs: Last Vital Signs Temp 97.5 F L 12/20/17 07:19 Pulse 76 12/20/17 07:19 Resp 16 12/20/17 07:42 BP 153/73 12/20/17 07:19 Pulse Ox 99 12/20/17 07:42 Results - Laboratory Findings CBC and BMP: 12/20/17 04:57 12/20/17 04:57 PT/INR, D-dimer PT 12.4 Seconds (9.4-12.1) H 12/17/17 09:24 Abnormal lab findings: Abnormal lab results WBC 12.4 K/mcL (4.3-11.1) H 12/20/17 04:57 RBC 3.81 M/mcL (3.82-4.97) L 12/20/17 04:57 Hgb 11.2 g/dL (11.5-15.4) L 12/20/17 04:57 Hct 34.7 % (35.3-44.9) L 12/20/17 04:57 Neutrophils # 10.6 K/mcL (1.6-8.9) H 12/20/17 04:57 PT 12.4 Seconds (9.4-12.1) H 12/17/17 09:24 Sodium 133 mEq/L (136-145) L 12/20/17 04:57 Chloride 95 mEq/L (98-107) L 12/20/17 04:57 BUN 71 mg/dL (6-20) H 12/20/17 04:57 Creatinine 6.71 mg/dL (0.60-1.20) H 12/20/17 04:57 Est GFR ( Amer) 8 (> 60) L 12/20/17 04:57 Est GFR (Non-Af Amer) 6 (> 60) L 12/20/17 04:57 Glucose 273 mg/dL (70-105) H 12/20/17 04:57 POC Glucose 479 mg/dL (70-99) H* 12/19/17 19:46 Calculated Osmolality 307 (280-300) H 12/20/17 04:57 B-Natriuretic Peptide 2046 pg/mL (Less than 100) H 12/17/17 09:24 - Clinical Findings Intake & Output: Intake & Output 12/19/17 12/20/17 12/20/17 23:59 07:59 15:59 Intake Total 240 / 240 Output Total 0 / 0 Balance 240 / 240 Weight 102.5 kg - Attending Attestation I examined this patient and my medical decision-making was reviewed with the Resident Physician. I agree with the documented findings, disposition and treatment plan as described except to the extent set forth below. Patient seen and examined. Labs, radiology, chart personally reviewed. Agree with resident's history and physical, assessment, plan with following comments: NEWSCAST DIRECTOR: Patient follows commands, Pulmonary: Patient can follow-up as outpatient regarding systemic steroid and hopefully will help to control blood sugar. Please call for any questions.
[2017-12-20] MEDS: predniSONE 20 MG TABLET PO SCH (09:06)
[2017-12-20] MEDS: Furosemide 40 MG TABLET PO SCH ×2 (09:06→16:54)
[2017-12-20] MEDS: Aspirin Enteric Coated 81 MG Tablet PO SCH (09:06)
[2017-12-20] MEDS: Metoprolol XL (24 HR) Succ 50 MG TAB.ER.24H PO SCH (09:06)
[2017-12-20] MEDS: NIFEdipine XL (24 HR) 60 MG TAB.ER.24 PO SCH (09:06)
[2017-12-20] MEDS: Calcium Acetate 667 MG CAPSULE PO SCH ×3 (09:08→16:54)
[2017-12-20] MEDS: Renal Vitamin 1 CAP CAPSULE PO SCH (09:08)
[2017-12-20] MEDS: Insulin LISPRO 300 UNITS/3 ML VIAL SQ SCH ×7 (09:08→21:10)
[2017-12-20] MEDS: Insulin DETEMIR 100 UNIT/ML X5UNITS SQ SCH ×2 (09:33→21:09)
--- NOTE | 2017-12-20 10:15 | Nephrology Progress Note ---
Date of Encounter: 12/20/17 Time of Encounter: 10:14 - Assessment and Plan (1) ESRD (end stage renal disease) on dialysis Current Visit: Yes Status: Chronic Current regimen is TTS at [facility]. HD completed yesterday. Plan for HD tomorow. Renal diet. Renal dose all medications and avoid nephrotoxins. Will order additional UF and HD as needed. (2) Asthma exacerbation Current Visit: Yes Status: Acute Per pulmonary. Qualifiers: Asthma severity: moderate Asthma persistence: persistent Qualified Code(s ): J45.41 - Moderate persistent asthma with (acute) exacerbation (3) Hyperkalemia Current Visit: Yes Status: Acute K is 4.9, stable. (4) Hyponatremia Current Visit: Yes Status: Acute Appears to be pseudo hyponatremia due to elevated glucose. Recommend tighter control of blood sugar to see if this is accurate. If still low with better glucose control will do hyponatremia workup. Subjective Principal diagnosis: ANGELINE Interval history: Patient seen and examined, doing well. Denies chest pain, shortness of breath, nausea, vomiting and diarrhea. She is feeling better. Is able to take deep breaths without as much pain. Objective - Vital Signs Vital signs: Vital Signs Temp Pulse Resp BP Pulse Ox 12/20/17 07:42 16 99 12/20/17 07:19 97.5 F L 76 17 153/73 99 12/20/17 04:39 97.6 F 78 18 126/72 100 12/20/17 04:06 17 94 12/19/17 23:54 18 96 12/19/17 22:55 98 F 81 18 155/73 99 12/19/17 20:26 18 100 12/19/17 18:57 98.5 F 88 16 157/72 100 12/19/17 16:00 98.1 F 83 17 165/77 98 12/19/17 15:59 18 97 12/19/17 12:43 97.5 F L 18 151/84 12/19/17 12:30 97 12/19/17 12:00 124/72 12/19/17 11:45 122/64 12/19/17 11:30 104/56 12/19/17 11:15 109/55 12/19/17 11:00 111/58 12/19/17 10:45 109/59 12/19/17 10:30 113/59 08/02/18 10:15 140/30 Intake and Output 12/19/17 12/20/17 12/20/17 23:59 07:59 15:59 Intake Total 240 / 240 30 / 30 Output Total 0 / 0 0 / 0 Balance 240 / 240 30 / 30 Intake: Oral 240 / 240 30 / 30 Output: Urine 0 / 0 0 / 0 Other: Meal Dinner Percent of Meal Consumed 80% Weight 102.5 kg Blood Glucose* 421 208 Patient Weight 12/20/17 23:59 Weight 102.5 kg - General Appearance General appearance: Present: well-developed, well-nourished EENT: Present: ATNC, hearing intact, vision intact Neck: Present: supple Respiratory: Present: clear Cardiology: Present: no edema, normal S1, normal S2 Dialysis Vascular Access: Arteriovenous Fistula thrill: Yes bruit: Yes Gastrointestinal: Present: normoactive bowel sounds, no tenderness, no guarding Integumentary: Present: no rash, warm and dry Neurologic: Present: alert and oriented x3 (d) Psychiatric: Present: mood/affect appropriate, cooperative - Lab 12/20/17 04:57 12/20/17 04:57 Most recent lab results Calcium 9.0 mg/dL (8.6-10.3) 12/20/17 04:57 Consult Discharge Plan - Plan Referrals: Suresh Mendoza MD [Primary Care Provider] - Prescriptions: Albuterol Sulfate [Proair Hfa] 2 puff IH Q4H PRN #2 inh PRN Reason: Wheezing Budesonide/Formoterol 160/4.5 [Symbicort 160/4.5] 2 puff IH BIDR #2 hfa.aer.ad predniSONE [PredniSONE] 20 mg PO DAILY #16 tablet Silver Sulfadiaz/Foam Bandage [Allevyn Ag Adhesive 3"X3"] 1 each TP DAILY #30 bandage
--- NOTE | 2017-12-20 11:26 | Internal Med Progress Note ---
Hospitalist Progress Note - Encounter Date of Encounter: 12/20/17 Time of Encounter: 11:26 - Subjective Interval History: 57 F with Uncontrolled DM, ESRD on HD, COPD, Admitted and being managed for COPDE She has no new complains She wants to have HD tmrw prior to discharge Podiatry zenon noted She is concerned about her TSH, its WNL She is not requiring O2 - Exam Vitals: Temp Pulse Resp BP Pulse Ox 97.3 F L 82 18 189/101 100 12/20/17 10:53 12/20/17 10:53 12/20/17 10:53 12/20/17 10:53 12/20/17 10:53 Exam: VSS Gen: Speaks full sentences, not in distress HEENT: Moist roal mucosa, not pale, anciteric Chest: CTAB, no added sounds Heart: S1, S2 only, no m/g/r Abdomen: Soft, not tender, no palpably enlarged organs Skin: No rash Psych: Normal affect Neuro: AAOX3, no focal deficits Extremities: No pedal edema, Right ankle Lat malleulous wound , in dressing LEft hand monteiro wound, not infected. Right heel with allevyn - Assessment and Plan (1) Diabetes Current Visit: Yes Status: Chronic Assessment and Plan: Uncontrolled FS Increase levemir Continue prandial and sliding scale insulin FS ACHS (2) ESRD (end stage renal disease) on dialysis Current Visit: Yes Status: Chronic Assessment and Plan: HD per renal (3) Asthma exacerbation Current Visit: Yes Status: Acute Assessment and Plan: Patient with multiple asthma exacerbations in the last year Continue current management Patient is not in distress Taper prednisone (4) Congestive heart failure Current Visit: Yes Status: Acute Assessment and Plan: Chronic, diastolic, ECHO from 05/2017 noted Continue home doses of lasix and HD (5) DVT prophylaxis Current Visit: Yes Status: Acute Assessment and Plan: Subcutaneous heparin (6) 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 Current Visit: Yes Status: Chronic Assessment and Plan: Podiatry zenon appreciated s/p Debridement at bedside No infection Continue wound care - Time Spent with Patient Total time spent is greater than 50% in coordination of care (as documented) at patient's floor/unit and/or counseling patient: Plan of Care Discussed with: patient Internal Medicine: Result - Labs CBC & Chem 7: 12/20/17 04:57 12/20/17 04:57 Labs: Short CBC 12/20/17 Range/Units 04:57 WBC 12.4 H (4.3-11.1) K/mcL Hgb 11.2 L (11.5-15.4) g/dL Hct 34.7 L (35.3-44.9) % Plt Count 173 (140-400) K/mcL Neutrophils # 10.6 H (1.6-8.9) K/mcL BMP 12/20/17 04:57 Sodium 133 L Potassium 4.9 Chloride 95 L Carbon Dioxide 23 BUN 71 H Creatinine 6.71 H Glucose 273 H Calcium 9.0 - ABG Interpretation ABG results: PT/INR, D-dimer PT 12.4 Seconds (9.4-12.1) H 12/17/17 09:24 Consult Discharge Plan - Plan Referrals: Suresh Mendoza MD [Primary Care Provider] - Prescriptions: Albuterol Sulfate [Proair Hfa] 2 puff IH Q4H PRN #2 inh PRN Reason: Wheezing Budesonide/Formoterol 160/4.5 [Symbicort 160/4.5] 2 puff IH BIDR #2 hfa.aer.ad predniSONE [PredniSONE] 20 mg PO DAILY #16 tablet Silver Sulfadiaz/Foam Bandage [Allevyn Ag Adhesive 3"X3"] 1 each TP DAILY #30 bandage (1) Diabetes Qualifiers: Diabetes mellitus type: type 2 Diabetes mellitus long line teamster insulin use: with assisted use Diabetes mellitus complication status: with neurologic complications Diabetes mellitus complication detail: with polyneuropathy Qualified Code(s): E11.42 - Type 2 diabetes mellitus with diabetic polyneuropathy; Z79.4 - termite control servicer (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; Z79.4 - retirement ( 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; Z79.4 - termite control servicer (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; Z79.4 - retirement (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 (3) Asthma exacerbation Qualifiers: Asthma severity: moderate Asthma persistence: persistent Qualified Code(s): J45.41 - Moderate persistent asthma with (acute) exacerbation (4) Congestive heart failure Qualifiers: Heart failure type: diastolic Heart failure chronicity: acute on chronic Qualified Code(s): I50.33 - Acute on chronic diastolic (congestive) heart failure (6) 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
[2017-12-20] MEDS: ALPRAZolam 0.5 MG TABLET PO PRN (21:07)
[2017-12-20] MEDS ORDERED: *HR* HYDROcodone/Acet 5/325 mg TABLET PO PRN (21:22)
[2017-12-20] MEDS: *HR* Heparin 5,000 UNIT/ML VIAL SQ SCH (23:47)
[2017-12-21] MEDS: Ipratropium/Albuterol Neb 3 ML IH SCH ×4 (00:18→11:51)
[2017-12-21 04:52] LABS: Basophils % 0.1 %; Hemoglobin 11.2 g/dL (11.5-15.4); Immature Granulocytes % 1.1 % (0-4); Lymphocytes # 1.5 K/mcL (0.6-4.6); Lymphocytes % 13.7 %; Mean Corpuscular HGB Conc 32.9 g/dL (31.6-35.5); Mean Corpuscular Hemoglobin 29.6 pg (28.0-33.3); Mean Corpuscular Volume 89.9 fL (83.0-100.0); Mean Platelet Volume 10.4 fL (9.4-12.4); Monocytes # 0.6 K/mcL (0.0-1.3); Monocytes % 5.2 %; Neutrophils # 8.6 K/mcL (1.6-8.9); Platelet Count 179 K/mcL (140-400); Red Blood Count 3.78 M/mcL (3.82-4.97); Red Cell Distribution Width 14.2 % (11.5-14.5); Segmented Neutrophils % 79.9 %
[2017-12-21 05:06] LABS: Calcium 9.2 mg/dL (8.6-10.3); Potassium 5.2 mEq/L (3.5-5.1)
[2017-12-21] MEDS: *HR* Heparin 5,000 UNIT/ML VIAL SQ SCH ×2 (05:51→12:50)
[2017-12-21] MEDS: Budesonide/Formoterol 160/4.5 MDI IH SCH (07:36)
[2017-12-21] MEDS ORDERED: 0.9 % Sodium Chloride 250 ML IVC PRN (08:11)
[2017-12-21] MEDS ORDERED: predniSONE 20 MG TABLET PO SCH (09:00)
[2017-12-21] MEDS: Renal Vitamin 1 CAP CAPSULE PO SCH (09:17)
[2017-12-21] MEDS: Calcium Acetate 667 MG CAPSULE PO SCH ×2 (09:17→12:03)
[2017-12-21] MEDS: Insulin DETEMIR 100 UNIT/ML X5UNITS SQ SCH (09:17)
[2017-12-21] MEDS: Metoprolol XL (24 HR) Succ 50 MG TAB.ER.24H PO SCH (09:17)
[2017-12-21] MEDS: Furosemide 40 MG TABLET PO SCH (09:17)
[2017-12-21] MEDS: Insulin LISPRO 300 UNITS/3 ML VIAL SQ SCH ×4 (09:18→12:03)
[2017-12-21] MEDS: Aspirin Enteric Coated 81 MG Tablet PO SCH (09:18)
[2017-12-21] MEDS: NIFEdipine XL (24 HR) 60 MG TAB.ER.24 PO SCH (09:18)
[2017-12-21 10:42] LABS: Myeloperoxidase Ab 0 AU/mL (0-19); Serine Protease-3 Antibody 1 AU/mL (0-19)
--- NOTE | 2017-12-21 11:42 | Discharge Summary ---
- NOTES TO OUTPATIENT PROVIDER Notes to Outpatient Provider: Patient was admitted for asthma exacerbation. Discharged home with tapering doses of prednisone. Diabetic Ulcers were debrided by podiatry at the bedside. No evidence of infection. Follow up with PCP, no change in other home meds Date of Encounter: 12/21/17 Time of Encounter: 11:42 - Discharge Diagnosis (1) Asthma exacerbation Priority: Primary Status: Acute Qualifiers: Asthma severity: moderate Asthma persistence: persistent Qualified Code(s ): J45.41 - Moderate persistent asthma with (acute) exacerbation (2) Diabetes Priority: Secondary Status: Chronic Qualifiers: Diabetes mellitus type: type 2 Diabetes mellitus nursing home insulin use: with intermodal dispatcher use Diabetes mellitus complication status: with neurologic complications Diabetes mellitus complication detail: with polyneuropathy Qualified Code(s): E11.42 - Type 2 diabetes mellitus with diabetic polyneuropathy; Z79.4 - medical terminologist (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; Z79.4 - nursing home ( 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; Z79.4 - medical terminologist (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; Z79.4 - medical terminologist (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 (3) ESRD (end stage renal disease) on dialysis Priority: Secondary Status: Chronic (4) Congestive heart failure Priority: Primary Status: Acute Qualifiers: Heart failure type: diastolic Heart failure chronicity: acute on chronic Qualified Code(s): I50.33 - Acute on chronic diastolic (congestive) heart failure (5) DVT prophylaxis Priority: Primary Status: Acute (6) 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 Frederick is a 57 year old female ESRD on HD, former smoker, admitted and managed for asthma exacerbation. Incidental finding n exam include multiple decubitus ulcers that were debrided by podiatry on the bedside She was not septic, and there was no infection or PNA She received her routine HD sessions while in-patient She also requested a TSH which was unremarkable She is seen during HD this a.m, with no new complains, no respirator symptoms, she is clincally stable to be discharged home with prednisone taper and MDIs. Follow up with PCP, Nephrology and Pulmonology Veralized understanding of plan of care Discharge discussed with: patient, nurse - Time Spent with Patient Total time spent providing and/or coordinating discharge services: Greater than 30 minutes - Discharge Medications Prescriptions: Albuterol Sulfate [Proair Hfa] 2 puff IH Q4H PRN #2 inh PRN Reason: Wheezing Budesonide/Formoterol 160/4.5 [Symbicort 160/4.5] 2 puff IH BIDR #2 hfa.aer.ad predniSONE [PredniSONE] 20 mg PO DAILY #16 tablet Silver Sulfadiaz/Foam Bandage [Allevyn Ag Adhesive 3"X3"] 1 each TP DAILY #30 bandage Home Medications: Aspirin Enteric Coated [Aspirin EC] 81 mg PO DAILY 04/08/15 [History] Multivitamin [Multi-Day Vitamins] 1 tab PO DAILY 04/08/15 [History] Simvastatin [Zocor] 40 mg PO DAILY 04/08/15 [History] ALPRAZolam [Xanax 0.5 MG Tablet] 0.5 mg PO TID PRN 06/27/16 [History] Tizanidine HCl 2 mg PO TID PRN 06/27/16 [History] Budesonide/Formoterol 160/4.5 [Symbicort 160/4.5] 2 puff IH BIDR #1 inhaler [Rx] Ergocalciferol (VITAMIN D2) [Vitamin D2] 50,000 unit PO QWEEK 01/16/17 [History] Insulin DETEMIR [Levemir Flextouch] 10 unit SQ BID 01/16/17 [History] Losartan Potassium [Cozaar] 100 mg PO DAILY #30 01/21/17 [Rx] Calcium Acetate [Phos-LO] 1,334 mg PO TID 02/25/17 [History] Insulin LISPRO [Humalog Kwikpen U-100] 5 unit SQ TID 02/25/17 [History] NIFEdipine [Nifedipine ER] 60 mg PO DAILY 02/25/17 [History] Renal Vitamin [Renal Caps Softgel] 1 mg PO DAILY 04/10/17 [History] Doxycycline 100 mg PO BID #10 capsule 06/12/17 [Rx] Albuterol Sulfate [Proair Hfa] 2 puff IH Q6H PRN 12/17/17 [History] Butalbital/Aspirin/Caffeine [Fiorinal 50-325-40 mg Capsule] 1 tab PO Q4H PRN [History] Cholecalciferol (D-3) [Vitamin D] 2,000 unit PO DAILY 12/17/17 [History] Furosemide [Lasix] 80 mg PO BID 12/17/17 [History] Ipratropium/Albuterol Neb [Duoneb] 3 ml IH Q4HR 12/17/17 [History] Metoprolol Succinate [Toprol Xl] 100 mg PO DAILY 12/17/17 [History] Sertraline [Zoloft] 50 mg PO DAILY 12/17/17 [History] Albuterol Sulfate [Proair Hfa] 2 puff IH Q4H PRN #2 inh 12/20/17 [Rx] Budesonide/Formoterol 160/4.5 [Symbicort 160/4.5] 2 puff IH BIDR #2 hfa.aer.ad 12/20/17 [Rx] Silver Sulfadiaz/Foam Bandage [Allevyn Ag Adhesive 3"X3"] 1 each TP DAILY #30 bandage 12/20/17 [Rx] predniSONE [PredniSONE] 20 mg PO DAILY #16 tablet 12/20/17 [Rx] Allergies/Adverse Reactions: 3 Allergy/AdvReac Type Severity Reaction Status Date / Time amitriptyline Allergy feels drunk Verified 04/10/17 08:42 amlodipine Allergy See Verified 04/10/17 08:42 Comments Amoxicillin [From Augmentin] Allergy Itching Verified 04/10/17 08:42 clavulanic acid Allergy Itching Verified 04/10/17 08:42 [From Augmentin] gabapentin [From Neurontin] Allergy make me Verified 04/10/17 08:42 sick at my stomach pregabalin [From Lyrica] Allergy Swelling Verified 04/10/17 08:42 of Lip/Tongue/Throat CAROLYN Inhibitors AdvReac Palpitation Verified 04/10/17 08:42 s fenofibrate [From Tricor] AdvReac See Verified 04/10/17 08:42 Comments Date of admission: 12/17/17 10:49 Primary care physician: Suresh Mendoza MD Consults: 12/17/17 14:57 Consult to Pulmonology [CONS] Routine Consulting Provider: [facility] Reason for Consult: Current asthma exacerbations Time Notified: 14:00 Call Completed: Yes 12/18/17 09:30 Consult to Dialysis [CONS] ONCE 12/18/17 12:58 Consult to Wound Care [CONS] Routine Reason for Consult: right foot ulcer Call Completed: No 12/18/17 13:38 Consult to Podiatry [CONS] Routine Consulting Provider: [facility] Reason for Consult: Right foot wound Time Notified: 13:39 Call Completed: No 12/19/17 07:45 Consult to Dialysis [CONS] ONCE 12/21/17 08:15 Consult to Dialysis [CONS] ONCE Discharging clinician: Garret Marquez Anticipated date of discharge: 12/21/17 - Constitutional Vitals: Temp Pulse Resp BP Pulse Ox 98.0 F 80 16 160/70 98 12/21/17 07:00 12/21/17 07:00 12/21/17 07:36 12/21/17 07:00 12/21/17 07:36 VSS Gen: Speaks full sentences, not in distress HEENT: Moist roal mucosa, not pale, anciteric Chest: CTAB, no added sounds Heart: S1, S2 only, no m/g/r Abdomen: Soft, not tender, no palpably enlarged organs Skin: No rash Psych: Normal affect Neuro: AAOX3, no focal deficits Extremities: No pedal edema, Right ankle Lat malleulous wound , in dressing LEft hand monteiro wound, not infected. Right heel with allevyn General appearance: Present: A&O X 3, no acute distress - Patient Status Disposition: Home, Self-Care Condition: Good Functional capacity at discharge: independent ambulation Overall status at discharge: patient is back to baseline - Discharge Instructions Follow Up With: Suresh Mendoza MD [Primary Care Provider] - Forms: ED Satisfaction Letter - Diet and Activity Activity: resume usual activities as tolerated Diet: diabetic diet, low salt diet
--- NOTE | 2017-12-21 12:59 | Nephrology Progress Note ---
Date of Encounter: 12/21/17 Time of Encounter: 12:57 - Assessment and Plan (1) ESRD (end stage renal disease) on dialysis Current Visit: Yes Status: Chronic Current regimen is TTS at [facility]. Patient seen on HD today Renal diet. Renal dose all medications and avoid nephrotoxins. Will order additional UF and HD as needed. (2) Asthma exacerbation Current Visit: Yes Status: Acute Per pulmonary. Qualifiers: Asthma severity: moderate Asthma persistence: persistent Qualified Code(s ): J45.41 - Moderate persistent asthma with (acute) exacerbation (3) Hyperkalemia Current Visit: Yes Status: Acute Managed via dialysis. Subjective Principal diagnosis: ANGELINE Interval history: Patient seen on dialysis. She has no new complaint. Objective - Vital Signs Vital signs: Vital Signs Temp Pulse Resp BP Pulse Ox 12/21/17 11:00 97.8 F 15 173/85 12/21/17 07:36 16 98 12/21/17 07:00 98.0 F 80 18 160/70 98 12/21/17 04:39 97.8 F 78 16 149/71 99 12/21/17 03:48 16 99 12/21/17 00:21 97.6 F 75 18 147/62 100 12/21/17 00:18 16 98 12/20/17 21:26 94 12/20/17 20:21 97.9 F 84 16 144/78 94 12/20/17 19:50 16 95 12/20/17 16:16 16 98 12/20/17 16:12 98.0 F 81 17 147/72 98 Intake and Output 12/20/17 12/21/17 12/21/17 23:59 07:59 15:59 Intake Total 240 / 240 960 / 960 Balance 240 / 240 960 / 960 Intake: Oral 240 / 240 360 / 360 Intake, Rinseback and Flushes 600 / 600 Other: Meal Dinner Breakfast Percent of Meal Consumed 100% 95% # Voids 1 Weight 104.871 kg Blood Glucose* 388 178 205 Hemodialysis Net Fluid Removed 0 (mL) Patient Weight 12/21/17 23:59 Weight 104.871 kg - General Appearance General appearance: Present: well-developed, well-nourished, obese Cardiology: Present: regular rate Neurologic: Present: alert and oriented x3 Psychiatric: Present: mood/affect appropriate - Lab 12/21/17 04:12 12/21/17 04:12 Most recent lab results Calcium 9.2 mg/dL (8.6-10.3) 12/21/17 04:12 Consult Discharge Plan - Plan Referrals: Suresh Mendoza MD [Primary Care Provider] - Prescriptions: Albuterol Sulfate [Proair Hfa] 2 puff IH Q4H PRN #2 inh PRN Reason: Wheezing Budesonide/Formoterol 160/4.5 [Symbicort 160/4.5] 2 puff IH BIDR #2 hfa.aer.ad predniSONE [PredniSONE] 20 mg PO DAILY #16 tablet Silver Sulfadiaz/Foam Bandage [Allevyn Ag Adhesive 3"X3"] 1 each TP DAILY #30 bandage
[2017-12-21 15:45] VITALS: BP 129/70
== END 2017-12-21 15:25 | disposition home or self-care (01) ==
LOC: 2ANU 09:00 → EMEROO 09:00 → SUATTDRO 10:49 → 2ANU 11:22
PROVIDERS: ADMIT Hospitalist; ATTEND Internal Medicine

== ENCOUNTER 2018-03-04 22:17 | Observation (INO) ==
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
[2018-03-04 23:01] LABS: Basophils % 0.4 %; Eosinophils # 0.1 K/mcL (0.0-0.6); Eosinophils % 1.4 %; Hematocrit 34.1 % (35.3-44.9); Hemoglobin 10.7 g/dL (11.5-15.4); Immature Granulocytes % 0.4 % (0-4); Lymphocytes # 1.3 K/mcL (0.6-4.6); Lymphocytes % 16.8 %; Mean Corpuscular HGB Conc 31.4 g/dL (31.6-35.5); Mean Corpuscular Hemoglobin 28.8 pg (28.0-33.3); Mean Corpuscular Volume 91.9 fL (83.0-100.0); Mean Platelet Volume 10.2 fL (9.4-12.4); Monocytes # 0.7 K/mcL (0.0-1.3); Monocytes % 9.5 %; Neutrophils # 5.5 K/mcL (1.6-8.9); Platelet Count 208 K/mcL (140-400); Red Blood Count 3.71 M/mcL (3.82-4.97); Red Cell Distribution Width 15.6 % (11.5-14.5); Segmented Neutrophils % 71.5 %
[2018-03-04 23:21] LABS: BUN/Creatinine Ratio 7 (6-26); Blood Urea Nitrogen 44 mg/dL (6-20); Calcium 9.1 mg/dL (8.6-10.3); Carbon Dioxide 23 mEq/L (23-29); Chloride 99 mEq/L (98-107); Glucose 196 mg/dL (70-105); Osmolality,Calculated 303 (280-300); Potassium 4.1 mEq/L (3.5-5.1); Sodium 138 mEq/L (136-145); eGFR For Non-African Americans 6 (> 60)
[2018-03-04 23:23] LABS: Troponin I < 0.03 ng/mL (< 0.04)
[2018-03-05] MEDS ORDERED: Furosemide 40 MG/4 ML VIAL IVP ONE (00:20)
[2018-03-05] MEDS ORDERED: Nitroglycerin 1 INCH/GM PACKET TP ONE (00:21)
[2018-03-05] MEDS ORDERED: Naloxone 0.4 MG/ML INJ IVP PRN (05:35)
[2018-03-05] MEDS ORDERED: *HR* Heparin 5,000 UNIT/ML VIAL IVP ONE (05:35)
[2018-03-05] MEDS ORDERED: Dextrose Gel 15 GM/37.5 ML TUBE PO PRN ×2 (05:35)
[2018-03-05] MEDS ORDERED: D5% in Water 1,000 ML IVC PRN (05:35)
[2018-03-05] MEDS ORDERED: Acetaminophen 325 MG TABLET PO PRN (05:35)
[2018-03-05] MEDS ORDERED: *HR* Heparin 5,000 UNIT/ML VIAL IVP PRN ×2 (05:35)
[2018-03-05] MEDS ORDERED: *HR* Dextrose 50 % in Water (Syg) 50 ML SYRINGE IVP PRN (05:35)
[2018-03-05] MEDS ORDERED: Heparin 25,000 UNIT/500 ML D5W 25,000 UNIT/500 ML BAG IVC SCH (05:45)
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
[2018-03-05] MEDS: *HR* HYDROcodone/Acet 5/325 mg TABLET PO PRN ×2 (06:15→22:04)
[2018-03-05 06:24] LABS: Basophils % 0.4 %; Eosinophils # 0.2 K/mcL (0.0-0.6); Hematocrit 31.9 % (35.3-44.9); Hemoglobin 9.9 g/dL (11.5-15.4); Immature Granulocytes % 0.3 % (0-4); Lymphocytes # 1.5 K/mcL (0.6-4.6); Lymphocytes % 20.1 %; Mean Corpuscular Hemoglobin 28.9 pg (28.0-33.3); Mean Corpuscular Volume 93.3 fL (83.0-100.0); Mean Platelet Volume 10.6 fL (9.4-12.4); Monocytes # 0.7 K/mcL (0.0-1.3); Monocytes % 9.7 %; Platelet Count 147 K/mcL (140-400); Red Blood Count 3.42 M/mcL (3.82-4.97); Red Cell Distribution Width 15.8 % (11.5-14.5); Segmented Neutrophils % 67.5 %
[2018-03-05 06:33] LABS: Prothrombin Time 11.3 Seconds (9.4-12.1)
[2018-03-05 06:42] LABS: Albumin 3.7 g/dL (3.5-5.7); Albumin/Globulin Ratio 1.4 (1.1-2.2); Bilirubin,Total 0.3 mg/dL (0.3-1.0); Calcium 8.7 mg/dL (8.6-10.3); Globulin 2.6 g/dL (2.4-3.5); Magnesium 2.1 mg/dL (1.6-2.6); Potassium 4.4 mEq/L (3.5-5.1); Total Protein 6.3 g/dL (6.4-8.9)
[2018-03-05 06:45] LABS: Troponin I < 0.03 ng/mL (< 0.04)
[2018-03-05 07:11] LABS: Neutrophils # 5.1 K/mcL (1.6-8.9)
[2018-03-05 07:37] LABS: Hepatitis B Surface Antibody 1.11 mIU/mL; Hepatitis B Surface Antigen Nonreactive (Nonreactive)
[2018-03-05] MEDS: Insulin LISPRO 300 UNITS/3 ML VIAL SQ SCH ×4 (07:51→21:59)
[2018-03-05 08:21] LABS: Estimated Average Glucose 143 mg/dl; Hemoglobin A1C 6.6 %
[2018-03-05] MEDS ORDERED: 0.9 % Sodium Chloride 2,000 ML ONE (09:00)
[2018-03-05] MEDS ORDERED: 0.9 % Sodium Chloride 250 ML IVC PRN (09:12)
[2018-03-05] MEDS ORDERED: 0.9 % Sodium Chloride 1,000 ML PRIME SCH (09:15)
--- NOTE | 2018-03-05 09:20 | Internal Med Progress Note ---
<Greyson Jauregui - Last Filed: 03/05/18 11:56> Hospitalist Progress Note - Encounter Date of Encounter: 03/05/18 Time of Encounter: 09:20 - Subjective Interval History: Patient was seen and examined at bedside this morning. She states that she feels much better when compared to admission. She presented for SOB and felt as if she were fluid overload. She reportedly has not been able to complete her last 3 dialysis sessions due to low blood pressure. She does have complaint of some left-sided chest pain that does radiate to bilateral neck and is worse with deep breathing. She states this is relatively new and denies any symptoms of fevers, chills, cough, recent illness. - Exam Vitals: Temp Pulse Resp BP Pulse Ox 98.8 F 74 17 164/80 98 03/05/18 07:07 03/05/18 07:07 03/05/18 07:07 03/05/18 07:07 03/05/18 07:07 Exam: Gen.: Vitals noted. No acute distress. AAOx3 HEENT: PERRL/EOMI, oropharynx clear, Normocephalic, atraumatic, MMM Cardiac: RRR, no murmur, +S1/S2. Reproducible chest pain on palpation Pulmonary: CTA bilaterally, no wheezes, rales or rhonchi, equal chest expansion Abdomen: soft, nontender, BS noted, no guarding, no rebound. MSK: ROM intact, no joint swelling noted Extremities: Dialysis fistula on left wrist, no BLE edema, nontender calf, no cyanosis or clubbing Neuro: A&Ox3, moves all extremities, no focal deficits Psych: Appropriate mood and behavior - Assessment and Plan (1) Acute exacerbation of CHF (congestive heart failure) Current Visit: Yes Status: Acute Assessment and Plan: - Patient reports great improvement from previous - Likely secondary to not completing dialysis x3 sessions - Currently tolerating room air - Received lasix 40 mg IV x1 dose in ED - Most recent echo 01/09/18 showed EF 60-65% with moderative diastolic dysfunction, reversible restrictive. - Scheduled for dialysis today Plan - Continue to monitor after dialysis - No indication for further diuretics at this time - Nephro following (2) Pleuritic chest pain Current Visit: Yes Status: Acute Assessment and Plan: - Does have a history of DVT and was started on heparin gtt by admitting team - CXR shows mild pulmonary venous congestion - Chest pain was reproducible on exam today - I have a lower suspicion for PE but will rule out. - Discussed with nephrology, prefer V/Q scan and b/l LE dopplar. - Troponin negative x2 Plan - Continue to monitor - Await results of V/Q and dopplar. Continue heparin gtt until negative - Symptomatic treatment for pain (3) ESRD (end stage renal disease) Current Visit: Yes Status: Chronic Assessment and Plan: - TTS dialysis - Reports that she was not able to complete dialysis the last 3 sessions due to blood pressure - Nephrology consulted for dialysis needs - Did discuss the PE concerns with Dr. Sparrow, he recommends b/l LE dopplar with V/Q scan after dialysis to rule out. - Avoid nephrotoxins, renal dosing. (4) IDDM (insulin dependent diabetes mellitus) Current Visit: Yes Status: Chronic Assessment and Plan: Will place on SSI and monitor glucose closely. Resume home meds as appropriate once med list verified. BS well controlled this AM at 151 A1c of 6.6% this AM (5) Fluid overload Current Visit: Yes Status: Acute Assessment and Plan: - as above for CHF exacerbation - Likely related to incomplete dialysis sessions - Management as above (6) Anemia Current Visit: Yes Status: Chronic Assessment and Plan: - Appears to be at baseline - H/H of 9.9/31.9 - Likely related to ESRD - Continue to monitor and transfuse as necessary (7) DVT prophylaxis Current Visit: Yes Status: Acute Assessment and Plan: Heparin drip as above until PE ruled out (8) Foot ulcer, right Current Visit: Yes Status: Chronic Assessment and Plan: Consult wound care and Podiatry for guidance/assistance. - Afebrile, no leukocytosis - We will obtain CRP, ESR - Appreciate podiatry input - Time Spent with Patient Total time spent is greater than 50% in coordination of care (as documented) at patient's floor/unit and/or counseling patient: Internal Medicine: Result - Labs CBC & Chem 7: 03/05/18 06:10 03/05/18 06:10 Labs: Short CBC 03/05/18 Range/Units 06:10 WBC 7.5 (4.3-11.1) K/mcL Hgb 9.9 L (11.5-15.4) g/dL Hct 31.9 L (35.3-44.9) % Plt Count 147 (140-400) K/mcL Neutrophils # 5.1 (1.6-8.9) K/mcL BMP 03/05/18 06:10 Sodium 138 Potassium 4.4 Chloride 103 Carbon Dioxide 22 L BUN 45 H Creatinine 7.01 H Glucose 140 H Calcium 8.7 Cardiac Enzymes 03/05/18 Range/Units 06:10 Troponin I < 0.03 (< 0.04) ng/mL Liver Function 03/05/18 Range/Units 06:10 Total Bilirubin 0.3 (0.3-1.0) mg/dL AST 15 (13-39) Units/L ALT 9 (7-52) Units/L Alkaline Phosphatase 64 (34-104) Units/L Albumin 3.7 (3.5-5.7) g/dL - ABG Interpretation ABG results: PT/INR, D-dimer PT 11.3 Seconds (9.4-12.1) 03/05/18 06:10 Consult Discharge Plan - Plan Additional Instructions: Follow up in wound clinic with Dr. Winn. Referrals: Suresh Mendoza MD [Primary Care Provider] - Tariq Winn DPM [Partnered Physician] - <Devin Lobato - Last Filed: 03/05/18 16:11> Hospitalist Progress Note - Encounter Date of Encounter: 03/05/18 - Exam Vitals: Temp Pulse Resp BP Pulse Ox 98.2 F 79 18 197/101 92 03/05/18 11:00 03/05/18 15:32 03/05/18 11:00 03/05/18 15:32 03/05/18 15:32 - Assessment and Plan (1) DVT prophylaxis Current Visit: Yes Status: Acute (2) Anemia Current Visit: Yes Status: Chronic (3) Acute exacerbation of CHF (congestive heart failure) Current Visit: Yes Status: Acute (4) ESRD (end stage renal disease) Current Visit: Yes Status: Chronic (5) Fluid overload Current Visit: Yes Status: Acute (6) Pleuritic chest pain Current Visit: Yes Status: Acute (7) IDDM (insulin dependent diabetes mellitus) Current Visit: Yes Status: Chronic (8) Foot ulcer, right Current Visit: Yes Status: Chronic - Time Spent with Patient Total time spent is greater than 50% in coordination of care (as documented) at patient's floor/unit and/or counseling patient: Internal Medicine: Result - Labs CBC & Chem 7: 03/05/18 06:10 03/05/18 06:10 Labs: Short CBC 03/05/18 Range/Units 06:10 WBC 7.5 (4.3-11.1) K/mcL Hgb 9.9 L (11.5-15.4) g/dL Hct 31.9 L (35.3-44.9) % Plt Count 147 (140-400) K/mcL Neutrophils # 5.1 (1.6-8.9) K/mcL BMP 03/05/18 06:10 Sodium 138 Potassium 4.4 Chloride 103 Carbon Dioxide 22 L BUN 45 H Creatinine 7.01 H Glucose 140 H Calcium 8.7 Cardiac Enzymes 03/05/18 03/05/18 Range/Units 06:10 14:10 Troponin I < 0.03 < 0.03 (< 0.04) ng/mL Liver Function 03/05/18 Range/Units 06:10 Total Bilirubin 0.3 (0.3-1.0) mg/dL AST 15 (13-39) Units/L ALT 9 (7-52) Units/L Alkaline Phosphatase 64 (34-104) Units/L Albumin 3.7 (3.5-5.7) g/dL - ABG Interpretation ABG results: PT/INR, D-dimer PT 11.3 Seconds (9.4-12.1) 03/05/18 06:10 - Impressions Impressions Foot X-Ray 03/05/18 09:17 IMPRESSION: Stable appearance of the right foot compared to the 2016 exam with posttraumatic changes of the 5th ray as described above and evidence of hammertoe deformity. D/ / Go Jara MD / Go Jara MD Interpreting Provider: Go Jara MD Pulmonary Perfusion Imaging 03/05/18 09:38 IMPRESSION: Low probability for pulmonary embolus. D/ / Go Jara MD / Go Jara MD Interpreting Provider: Go Jara MD - Attending Attestation I examined this patient and my medical decision-making was reviewed with the Resident Physician Dr. Jauregui. I agree with the documented findings, disposition and treatment plan as described except to the extent set forth below. Ms. Frederick is a 57 year old female with known ESRB on HD, diastolic CHF who presented to the ER with complaints of shortness of breath, pleuritic chest pain and fluid overload. Pt was started on Heparin gtt. Had V/Q scan done this morning which came back as low probability. She denied any more SOB. gen: A, A, O x 3 Chest: Diminished BS b/l, no crackles Heart: S1S2 + RRR a/p 1. Acute SOB / Volume overload Cont HD as per Nephro 2. Rt pleuritic CP Low probability for PE d/c Heparin Cont DVT prophylaxis <Greyson Jauregui - Last Filed: 03/05/18 11:56> (1) Acute exacerbation of CHF (congestive heart failure) Qualifiers: Heart failure type: unspecified Qualified Code(s): I50.9 - Heart failure, unspecified (5) Fluid overload Qualifiers: Hypervolemia type: unspecified Qualified Code(s): E87.70 - Fluid overload, unspecified (6) Anemia Qualifiers: Anemia type: due to chronic kidney disease Chronic kidney disease stage: on chronic dialysis Qualified Code(s): N18.6 - End stage renal disease; D63.1 - Anemia in chronic kidney disease; Z99.2 - Dependence on renal dialysis (8) Foot ulcer, right Qualifiers: Non-pressure ulcer stage: with fat layer exposed Qualified Code(s): L97.512 - Non-pressure chronic ulcer of other part of right foot with fat layer exposed <Devin Lobato - Last Filed: 03/05/18 16:11> (2) Anemia Qualifiers: Anemia type: due to chronic kidney disease Chronic kidney disease stage: on chronic dialysis Qualified Code(s): N18.6 - End stage renal disease; D63.1 - Anemia in chronic kidney disease; Z99.2 - Dependence on renal dialysis (3) Acute exacerbation of CHF (congestive heart failure) Qualifiers: Heart failure type: unspecified Qualified Code(s): I50.9 - Heart failure, unspecified (5) Fluid overload Qualifiers: Hypervolemia type: unspecified Qualified Code(s): E87.70 - Fluid overload, unspecified (8) Foot ulcer, right Qualifiers: Non-pressure ulcer stage: with fat layer exposed Qualified Code(s): L97.512 - Non-pressure chronic ulcer of other part of right foot with fat layer exposed
--- NOTE | 2018-03-05 09:38 | Podiatry Consult Note ---
Date of Encounter: 03/05/18 Time of Encounter: 09:24 Assessment and Plan (1) Foot ulcer Current visit: No Status: Acute #1 right malleolus ulcer measuring 7 x 4 cm. Wound edges dusky with granulation tissue in center. Anaerobic and aerobic wound cultures sent. Covered with Adaptic. X-ray ordered 3 views right foot. Will order santyl. Apply nickel thick daily. #2 right hallux, submetatarsal 1, 2, and distal toes 2, 3, and 4 debrided with sharp scissors. Underlying tissue beefy and red. Wound measuring 7 x 4 cm from hallux to submetatarsal. Distal toes 2, 3, and 4 measuring 1 x 1 cm each. No cellulitis or lymphangitis noted. No abscess noted. Applied Adaptic to wound bed. Change dressing daily. #3 right fifth submetatarsal callus/ulceration with maceration and thick fibrotic center debrided with #15 scalpel blade. Ulceration measuring 2 x 2 x 0.3 cm. anaerobic and aerobic wound cultures sent. Painted with Betadine and applied Adaptic. Will order santyl. Apply nickel thick daily. #4 covered all wounds with 4 x 4 dry gauze, Kerlix, and Coban. #5 patient will need to follow with Dr. Winn in wound care on Saturday post discharge. Qualifiers: Laterality: right Non-pressure ulcer stage: limited to breakdown of skin Qualified Code(s): L97.511 - Non-pressure chronic ulcer of other part of right foot limited to breakdown of skin History of Present Illness HPI: Ms. Frederick is a 57 year old female known to the podiatry clinic. Patient was last seen in the office in 2016 for a right malleolus foot ulcer. This has been a recurrent issue since 2014. She normally follows with Dr. Winn, but has canceled last several appointments. She was last in the hospital 12/19/17 and was seen for right malleolus foot ulcer and right fifth metatarsal ulceration. At that time the fifth metatarsal was debrided and patient was to follow up in office with Dr. Winn. Patient reports being unable to get ride to come to appointment. Patient has past medical history of asthma, hypertension, hyperlipidemia, diabetes with neuropathy, end-stage renal disease and on hemodialysis. Patient reports is an ex-smoker. Patient denies having recent hemoglobin A1c. Does not regularly check blood glucose levels at home. Patient on Levemir and NovoLog at home. Patient reports on Saturday03/02/18, using electric heater and placing foot by heater. Patient reports looking down and hallux, toes 2, 3, and 4 having blisters. Reports trying to debride foot home with no improvement. Patient also states that right malleolus foot ulcer is nonhealing and right metatarsal ulcer has worsened sine last hospital stay and debridment on 12/19/17. Last set of ABIs in November 2015 were normal. Venous Dopplers were completed in June 2016 and were normal. Patient reports chronic neuropathy to bilateral feet. Past Med Surg Social Fam HX - Past Medical History Medical history: arthritis, asthma, CHF, CVA, DVT, diabetes, dialysis, fibromyalgia, GERD, hyperlipidemia, hypertension, myocardial infarction, renal disease Additional medical history: DVT right foot Psychiatric history: anxiety, depression - Past Surgical History Surgical History: , orthopedic, other Additional surgical history: d&c. right chest port. right ankle surgery. left FA FISTULA - Social History Smoking Status: Former smoker Smokeless Tobacco Status: No Alcohol use: none Drug use: none - Family History Mother Adopted: No Family Member Ethnicity: Non- Living Status: Hx Family Cardiac Disorders: Yes (HTN) Hx Family Respiratory Disorders: No Hx Family Cancer: Yes (Lung Ca) Hx Family GI Disorders: No Hx Family Endocrine Disorder: No Hx Family Neuromuscular Disorders: No Hx Family Neurologic Disorders: No Hx Family HEENT Disorders: No Hx Family Autoimmune Disorders: No Father Adopted: No Family Member Ethnicity: Non- Living Status: Hx Family Cardiac Disorders: No Hx Family Respiratory Disorders: Yes Hx Family Cancer: Yes (Lung Ca) Hx Family GI Disorders: No Hx Family Endocrine Disorder: No Hx Family Neuromuscular Disorders: No Hx Family Neurologic Disorders: No Hx Family HEENT Disorders: No Hx Family Autoimmune Disorders: No Medications and Allergies Aspirin Enteric Coated [Aspirin EC] 81 mg PO DAILY 04/08/15 [History] Tizanidine HCl 2 mg PO TID PRN 06/27/16 [History] Ergocalciferol (VITAMIN D2) [Vitamin D2] 50,000 unit PO HS 01/16/17 [History] Calcium Acetate [Phos-LO] 2,001 mg PO TID 02/25/17 [History] Insulin LISPRO [Humalog Kwikpen U-100] 5 unit SQ TID 02/25/17 [History] Renal Vitamin [Renal Caps Softgel] 1 mg PO DAILY 04/10/17 [History] Cholecalciferol (D-3) [Vitamin D] 2,000 unit PO DAILY 12/17/17 [History] Furosemide [Lasix] 80 mg PO TID 12/17/17 [History] Sertraline [Zoloft] 50 mg PO DAILY 12/17/17 [History] Albuterol Sulfate [Proair Hfa] 2 puff IH Q4H PRN #2 inh 12/20/17 [Rx] Multivitamin [One Daily Essential] 1 tab PO DAILY 01/09/18 [History] Simvastatin [Zocor] 40 mg PO HS 01/09/18 [History] Budesonide/Formoterol 160/4.5 [Symbicort 160/4.5] 2 puff IH BIDR 03/05/18 [ History] Fluticasone Propionate Nasal [Flonase] 1 spr NS DAILY 03/05/18 [History] Insulin DETEMIR [Levemir Flextouch] 10 unit SQ BID 03/05/18 [History] Losartan Potassium [Cozaar] 100 mg PO DAILY 03/05/18 [History] Metoprolol [Lopressor] 100 mg PO BID 03/05/18 [History] NIFEdipine [Nifedipine ER] 60 mg PO DAILY 03/05/18 [History] Omeprazole [PriLOSEC] 20 mg PO DAILY 03/05/18 [History] 3 Allergy/AdvReac Type Severity Reaction Status Date / Time amlodipine Allergy See Verified 04/10/17 08:42 Comments Amoxicillin [From Augmentin] Allergy Itching Verified 04/10/17 08:42 clavulanic acid Allergy Itching Verified 04/10/17 08:42 [From Augmentin] pregabalin [From Lyrica] Allergy Swelling Verified 04/10/17 08:42 of Lip/Tongue/Throat CAROLYN Inhibitors AdvReac Palpitation Verified 04/10/17 08:42 s amitriptyline AdvReac feels drunk Verified 01/09/18 07:58 fenofibrate [From Tricor] AdvReac See Verified 04/10/17 08:42 Comments gabapentin [From Neurontin] AdvReac make me Verified 01/09/18 07:58 sick at my stomach All Systems Reviewed: The remainder of the systems were reviewed and are negative Review of systems: Constitutional: Denies fever, chills Vascular: Reports numbness, tingling, decreased sensation Integumentary: Reports ulcerations Neurological: Reports numbness, tingling, decreased sensation Endocrine: Reports diabetes Physical Exam - Constitutional Vitals: Temp Pulse Resp BP Pulse Ox 98.8 F 74 17 164/80 98 03/05/18 07:07 03/05/18 07:07 03/05/18 07:07 03/05/18 07:07 03/05/18 07:07 General appearance: morbidly obese Exam: Constitutional: Patient awake, alert, and oriented 3. Morbidly obese. Vascular: 05/23 DP, PT pulses bilaterally, capillary refill less than 3 seconds to all toes lateral feet Integumentary: Skin warm, dry, shiny, and thin bilaterally. Bullae noted to right hallux, first, and second metatarsal head measuring 7 x 4 cm, and right distal aspects of toes 2, 3, and 4 measuring 1 x 1 cm. Ulceration noted to right sub fifth metatarsal measuring 2 x 2 cm. Right malleolus ulceration measuring 6 x 5 cm. Neurological: Absent epicritic and vibratory sensation bilaterally Musculoskeletal: Range of motion to bilateral ankles within normal limits, hammertoe noted to right fifth toe, patient reports history of surgery on right fifth toe and removal of metatarsal head - Extremities Exam Extremities exam: Present: normal capillary refill - Ankle & Foot Appearance ankle: other (Ulceration right lateral malleolus) Results - Labs Result Diagrams: 03/05/18 06:10 03/05/18 06:10 Labs: Abnormal lab results RBC 3.42 M/mcL (3.82-4.97) L 03/05/18 06:10 Hgb 9.9 g/dL (11.5-15.4) L 03/05/18 06:10 Hct 31.9 % (35.3-44.9) L 03/05/18 06:10 MCHC 31.0 g/dL (31.6-35.5) L 03/05/18 06:10 RDW 15.8 % (11.5-14.5) H 03/05/18 06:10 APTT 23.0 Seconds (26.0-36.0) L 03/05/18 06:10 Heparin Anti-Xa, Unfract 0.00 IU/mL (0.30-0.70) L 03/05/18 06:10 Carbon Dioxide 22 mEq/L (23-29) L 03/05/18 06:10 BUN 45 mg/dL (6-20) H 03/05/18 06:10 Creatinine 7.01 mg/dL (0.60-1.20) H 03/05/18 06:10 Est GFR ( Amer) 7 (> 60) L 03/05/18 06:10 Est GFR (Non-Af Amer) 6 (> 60) L 03/05/18 06:10 Glucose 140 mg/dL (70-105) H 03/05/18 06:10 POC Glucose 151 mg/dL (70-99) H 03/05/18 07:33 Hemoglobin A1c 6.6 % (-5.6) H 03/05/18 06:10 B-Natriuretic Peptide 1312 pg/mL (Less than 100) H 03/04/18 22:48 Serum Total Protein 6.3 g/dL (6.4-8.9) L 03/05/18 06:10 H & H 03/05/18 Range/Units 06:10 Hgb 9.9 L (11.5-15.4) g/dL Hct 31.9 L (35.3-44.9) % All other labs normal. - Diagnostic results Ankle/Foot x-ray: report reviewed Consult Discharge Plan - Plan Additional Instructions: Follow up in wound clinic with Dr. Winn. Referrals: Suresh Mendoza MD [Primary Care Provider] - Tariq Winn DPM [Partnered Physician] -
[2018-03-05 09:39] LABS: C-Reactive Protein 10 mg/L (Less than 10)
--- NOTE | 2018-03-05 11:03 | Nephrology Consult Note ---
Date of Encounter: 03/05/18 Time of Encounter: 10:52 Assessment and Plan (1) ESRD (end stage renal disease) Current Visit: Yes Status: Chronic Current regimen is TTS at [facility]. Last tx was Saturday, but it was not a full treatment. Fistulagram ordered. Will order additional UF or HD as needed. (2) Acute exacerbation of CHF (congestive heart failure) Current Visit: Yes Status: Acute Per primary. 1.5 Liter fluid restriction. Strict I/O Qualifiers: Heart failure type: unspecified Qualified Code(s): I50.9 - Heart failure, unspecified (3) Fluid overload Current Visit: Yes Status: Acute Per primary, see above. Qualifiers: Hypervolemia type: unspecified Qualified Code(s): E87.70 - Fluid overload, unspecified (4) Anemia Current Visit: Yes Status: Chronic Goal Hgb is 10-11. Hgb is 9.9 today, stable. Qualifiers: Anemia type: due to chronic kidney disease Chronic kidney disease stage: on chronic dialysis Qualified Code(s): N18.6 - End stage renal disease; D63.1 - Anemia in chronic kidney disease; Z99.2 - Dependence on renal dialysis (5) Foot ulcer, right Current Visit: Yes Status: Chronic Per podiatry, appreciate recommendations. Qualifiers: Non-pressure ulcer stage: with fat layer exposed Qualified Code(s): L97.512 - Non-pressure chronic ulcer of other part of right foot with fat layer exposed History of Present Illness - Reason for Consult Consult date: 03/05/18 end stage renal disease - Chief Complaint difficulty in breathing - History of Present Illness Ms. Frederick is a 57 year old female who presented to ED via EMS for shortness of breath. PMH: arthritis, asthma, CHF, CVA, DVT, diabetes, dialysis, fibromyalgia, GERD, hyperlipidemia, hypertension, myocardial infarction. ESRD with [facility] TTS. She has not been receiving adequate treatments due to malfunctioning fistula. IR consulted for fistulagram today. She reports difficulty in breathing started sometime yesterday. Denied CP, but did admit to chest "heaviness". Denied radiation symptoms, but now describes her left neck is hurting. Past Med Surg Social Fam HX - Past Medical History Medical history: arthritis, asthma, CHF, CVA, DVT, diabetes, dialysis, fibromyalgia, GERD, hyperlipidemia, hypertension, myocardial infarction, renal disease Additional medical history: DVT right foot Psychiatric history: anxiety, depression - Past Surgical History Surgical History: , orthopedic, other Additional surgical history: d&c. right chest port. right ankle surgery. left FA FISTULA - Social History Smoking Status: Former smoker Smokeless Tobacco Status: No Alcohol use: none Drug use: none - Family History Mother Adopted: No Family Member Ethnicity: Non- Living Status: Hx Family Cardiac Disorders: Yes (HTN) Hx Family Respiratory Disorders: No Hx Family Cancer: Yes (Lung Ca) Hx Family GI Disorders: No Hx Family Endocrine Disorder: No Hx Family Neuromuscular Disorders: No Hx Family Neurologic Disorders: No Hx Family HEENT Disorders: No Hx Family Autoimmune Disorders: No Father Adopted: No Family Member Ethnicity: Non- Living Status: Hx Family Cardiac Disorders: No Hx Family Respiratory Disorders: Yes Hx Family Cancer: Yes (Lung Ca) Hx Family GI Disorders: No Hx Family Endocrine Disorder: No Hx Family Neuromuscular Disorders: No Hx Family Neurologic Disorders: No Hx Family HEENT Disorders: No Hx Family Autoimmune Disorders: No Medications and Allergies Aspirin Enteric Coated [Aspirin EC] 81 mg PO DAILY 04/08/15 [History] Tizanidine HCl 2 mg PO TID PRN 06/27/16 [History] Ergocalciferol (VITAMIN D2) [Vitamin D2] 50,000 unit PO HS 01/16/17 [History] Calcium Acetate [Phos-LO] 2,001 mg PO TID 02/25/17 [History] Insulin LISPRO [Humalog Kwikpen U-100] 5 unit SQ TID 02/25/17 [History] Renal Vitamin [Renal Caps Softgel] 1 mg PO DAILY 04/10/17 [History] Cholecalciferol (D-3) [Vitamin D] 2,000 unit PO DAILY 12/17/17 [History] Furosemide [Lasix] 80 mg PO TID 12/17/17 [History] Sertraline [Zoloft] 50 mg PO DAILY 12/17/17 [History] Albuterol Sulfate [Proair Hfa] 2 puff IH Q4H PRN #2 inh 12/20/17 [Rx] Multivitamin [One Daily Essential] 1 tab PO DAILY 01/09/18 [History] Simvastatin [Zocor] 40 mg PO HS 01/09/18 [History] Budesonide/Formoterol 160/4.5 [Symbicort 160/4.5] 2 puff IH BIDR 03/05/18 [ History] Fluticasone Propionate Nasal [Flonase] 1 spr NS DAILY 03/05/18 [History] Insulin DETEMIR [Levemir Flextouch] 10 unit SQ BID 03/05/18 [History] Losartan Potassium [Cozaar] 100 mg PO DAILY 03/05/18 [History] Metoprolol [Lopressor] 100 mg PO BID 03/05/18 [History] NIFEdipine [Nifedipine ER] 60 mg PO DAILY 03/05/18 [History] Omeprazole [PriLOSEC] 20 mg PO DAILY 03/05/18 [History] 3 Allergy/AdvReac Type Severity Reaction Status Date / Time amlodipine Allergy See Verified 04/10/17 08:42 Comments Amoxicillin [From Augmentin] Allergy Itching Verified 04/10/17 08:42 clavulanic acid Allergy Itching Verified 04/10/17 08:42 [From Augmentin] pregabalin [From Lyrica] Allergy Swelling Verified 04/10/17 08:42 of Lip/Tongue/Throat CAROLYN Inhibitors AdvReac Palpitation Verified 04/10/17 08:42 s amitriptyline AdvReac feels drunk Verified 01/09/18 07:58 fenofibrate [From Tricor] AdvReac See Verified 04/10/17 08:42 Comments gabapentin [From Neurontin] AdvReac make me Verified 01/09/18 07:58 sick at my stomach Review of Systems All Systems review (narrative): The remainder of the symptoms are negative. Constitutional: no chills, no fatigue, no fever(s) Cardiovascular: dyspnea, edema, palpitations, no chest pain Respiratory: dyspnea on exertion, no wheezing Gastrointestinal: diarrhea, no change in bowel habits, no nausea, no vomiting Exam - Vital Signs Vital signs: Initial Vital Signs Temp Pulse Resp BP Pulse Ox 98.2 F 79 20 160/74 100 03/04/18 22:21 03/04/18 22:21 03/04/18 22:21 03/04/18 22:21 03/04/18 22:21 Vital Signs - Last 8 Hours Temp Pulse Resp BP Pulse Ox 03/05/18 07:07 98.8 F 74 17 164/80 98 03/05/18 06:23 98 03/05/18 05:09 98.7 F 75 16 153/75 98 Intake and Output 03/04/18 03/05/18 03/05/18 23:59 07:59 15:59 Intake Total 240 / 240 Balance 240 / 240 Intake: Oral 240 / 240 Other: Meal Breakfast Percent of Meal Consumed 40% Weight 103.2 kg Blood Glucose* 151 Patient Weight 03/05/18 23:59 Weight 103.2 kg - General Appearance General appearance: well-developed, well-nourished, obese EENT: ATNC, hearing intact, vision intact Neck: supple Respiratory: clear Cardiology: edema (+1 pitting edema noted to bilat lower extremities.), normal S1, normal S2 - Dialysis Access Dialysis Vascular Access: Arteriovenous Fistula thrill: Yes bruit: Yes Gastrointestinal: normoactive bowel sounds, no tenderness, no guarding Integumentary: no rash, warm and dry Neurologic: alert and oriented x3 Psychiatric: mood/affect appropriate Results - Lab Results 03/05/18 06:10 03/05/18 06:10 Most recent lab results Calcium 8.7 mg/dL (8.6-10.3) 03/05/18 06:10 Magnesium 2.1 mg/dL (1.6-2.6) 03/05/18 06:10 Consult Discharge Plan - Plan Additional Instructions: Follow up in wound clinic with Dr. Winn. Referrals: Suresh Mendoza MD [Primary Care Provider] - Tariq Winn DPM [Partnered Physician] -
[2018-03-05] MEDS ORDERED: Heparin 1,000 UNITS/500 mL 500 ML ONE (13:48)
[2018-03-05] MEDS ORDERED: 0.9 % Sodium Chloride 500 ML ONE (13:48)
[2018-03-05] MEDS ORDERED: *HR* FentaNYL (PF) 100 MCG/2 ML VIAL IVP ONE (14:39)
[2018-03-05] MEDS ORDERED: *HR* Midazolam HCl 2 MG/2 ML VIAL IVP ONE (14:39)
[2018-03-05] MEDS ORDERED: Isovue-300 50 ML VIAL IVP ONE ×2 (15:38→15:40)
--- NOTE | 2018-03-05 15:48 | IR Procedure Note ---
Date of procedure: 03/05/18 Consent Obtained: Written consent Timeout: Correct patient and procedure verified, Correct site verified, Time out performed, Skin prep completed Local anesthetic: Lidocaine 1% Indications: Poorly functioning fistula Procedure Performed: Fistulagram Was there an business development assistant present: No Site/Technique: Recently done at [facility] [place], [place] by Doreen.Today,? of mild stenosis at AV anastamosis Results/Findings: 4mm balloon used. Mild increased flow across.No other sig stenosis. Estimated blood loss (cc): 3 Complications: None; Tolerated procedure well Post Procedure Treatment Plan: Monitoring in pts room Specimen: N/a
[2018-03-05] MEDS: Metoprolol 100 MG TABLET PO SCH (23:41)
[2018-03-06 11:17] LABS: Hematocrit 34.9 % (35.3-44.9); Hemoglobin 10.6 g/dL (11.5-15.4); Immature Platelets 4.2 % (1.1-6.1); Mean Corpuscular HGB Conc 30.4 g/dL (31.6-35.5); Mean Corpuscular Volume 95.6 fL (83.0-100.0); Mean Platelet Volume 10.8 fL (9.4-12.4); Red Blood Count 3.65 M/mcL (3.82-4.97); Red Cell Distribution Width 15.8 % (11.5-14.5)
[2018-03-06 12:22] LABS: Calcium 8.8 mg/dL (8.6-10.3); Potassium 4.9 mEq/L (3.5-5.1)
[2018-03-06] MEDS: Insulin LISPRO 300 UNITS/3 ML VIAL SQ SCH ×3 (12:23→21:21)
[2018-03-06] MEDS: Metoprolol 100 MG TABLET PO SCH ×2 (12:24→21:22)
--- NOTE | 2018-03-06 14:00 | Electrocardiograph Report ---
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
--- NOTE | 2018-03-06 15:14 | Internal Med Progress Note ---
Hospitalist Progress Note - Encounter Date of Encounter: 03/06/18 Time of Encounter: 14:00 - Subjective Interval History: Ms. Frederick is a 57 year old female with known ESRB on HD, diastolic CHF who presented to the ER with complaints of shortness of breath, pleuritic chest pain and fluid overload. Pt was started on Heparin gtt. Had V/Q scan came back as low probability. She denied any more SOB / Chest pain. Pt had some issues with AV fistula, had fistulogram y/d which did now show any infiltrates. However she was not able to have full HD done today due to issues with AV fistula. - Exam Vitals: Temp Pulse Resp BP Pulse Ox 98.2 F 68 16 171/85 96 03/05/18 23:20 03/05/18 23:20 03/05/18 23:20 03/05/18 23:20 03/05/18 23:20 Exam: Gen.: Vitals noted. No acute distress. AAOx3 HEENT: PERRL/EOMI, oropharynx clear, Normocephalic, atraumatic, MMM Cardiac: RRR, no murmur, +S1/S2. Reproducible chest pain on palpation Pulmonary: CTA bilaterally, no wheezes, rales or rhonchi, equal chest expansion Abdomen: soft, nontender, BS noted, no guarding, no rebound. MSK: ROM intact, no joint swelling noted Extremities: Dialysis fistula on left wrist, no BLE edema, nontender calf, no cyanosis or clubbing Neuro: A&Ox3, moves all extremities, no focal deficits Psych: Appropriate mood and behavior - Assessment and Plan (1) Acute exacerbation of CHF (congestive heart failure) Current Visit: Yes Status: Acute Assessment and Plan: Acute on chronic diastolic CHF exacerbation more due to volume overload with due to HD issues too cont HD as per Nephro recommendation Lasix IV Resumed other home meds (2) Pleuritic chest pain Current Visit: Yes Status: Acute Assessment and Plan: V/Q scan low probability for PE Improved now (3) ESRD (end stage renal disease) Current Visit: Yes Status: Chronic Assessment and Plan: Unable to finish full HD due to AV fistula issues Talked to Nephro.. May consider to place Temp HD cath for HD and have out pt f/u with Vascular surgery for AV fistula (4) Anemia Current Visit: Yes Status: Chronic Assessment and Plan: Appears to be at baseline H/H of 9.9/31.9 Likely related to ESRD Continue to monitor and transfuse as necessary (5) Fluid overload Current Visit: Yes Status: Acute Assessment and Plan: - as above for CHF exacerbation - Likely related to incomplete dialysis sessions - Management as above (6) IDDM (insulin dependent diabetes mellitus) Current Visit: Yes Status: Chronic Assessment and Plan: ISS ADA diet (7) Foot ulcer, right Current Visit: Yes Status: Chronic Assessment and Plan: wound does not look infected cont local wound care (8) DVT prophylaxis Current Visit: Yes Status: Acute Assessment and Plan: SQ Heparin - Time Spent with Patient Total time spent is greater than 50% in coordination of care (as documented) at patient's floor/unit and/or counseling patient: Internal Medicine: Result - Labs CBC & Chem 7: 03/06/18 04:10 03/06/18 04:10 Labs: Short CBC 03/06/18 Range/Units 04:10 WBC 6.6 (4.3-11.1) K/mcL Hgb 10.6 L (11.5-15.4) g/dL Hct 34.9 L (35.3-44.9) % Plt Count 167 (140-400) K/mcL BMP 03/06/18 04:10 Sodium 138 Potassium 4.9 Chloride 103 Carbon Dioxide 23 BUN 45 H Creatinine 7.39 H Glucose 106 H Calcium 8.8 Cardiac Enzymes 03/05/18 Range/Units 19:56 Troponin I 0.03 (< 0.04) ng/mL - ABG Interpretation ABG results: PT/INR, D-dimer PT 11.3 Seconds (9.4-12.1) 03/05/18 06:10 - Impressions Impressions AV Shunt Angiogram 03/05/18 00:00 IMPRESSION: Mild AV anastomotic stenosis, successfully treated with [employer]ESSION[employer] REPRESENTATIVE. The remainder of the fistula shows no significant stenosis. D/ / Meek Aponte MD / Meek Aponte MD Interpreting Provider: Meek Aponte MD Guidance Ultrasound 03/05/18 00:00 IMPRESSION: Mild AV anastomotic stenosis, successfully treated with [employer] REPRESENTATIVE. The remainder of the fistula shows no significant stenosis. D/ / Meek Aponte MD / Meek Aponte MD Interpreting Provider: Meek Aponte MD Consult Discharge Plan - Plan Additional Instructions: Follow up in wound clinic with Dr. Winn. Referrals: Suresh Mendoza MD [Primary Care Provider] - Tariq Winn DPM [Partnered Physician] - (1) Acute exacerbation of CHF (congestive heart failure) Qualifiers: Heart failure type: diastolic Qualified Code(s): I50.33 - Acute on chronic diastolic (congestive) heart failure (4) Anemia Qualifiers: Anemia type: due to chronic kidney disease Chronic kidney disease stage: on chronic dialysis Qualified Code(s): N18.6 - End stage renal disease; D63.1 - Anemia in chronic kidney disease; Z99.2 - Dependence on renal dialysis (5) Fluid overload Qualifiers: Hypervolemia type: unspecified Qualified Code(s): E87.70 - Fluid overload, unspecified (7) Foot ulcer, right Qualifiers: Non-pressure ulcer stage: with fat layer exposed Qualified Code(s): L97.512 - Non-pressure chronic ulcer of other part of right foot with fat layer exposed
[2018-03-06] MEDS ORDERED: tiZANidine 4 MG TABLET PO PRN (15:19)
[2018-03-06] MEDS ORDERED: Metoprolol 100 MG TABLET PO ONE (15:50)
--- NOTE | 2018-03-06 17:10 | Vascular/Endovasc Consult Note ---
Date of Encounter: 03/06/18 Time of Encounter: 17:06 Assessment and Plan (1) Problem with dialysis access Current Visit: No Status: Acute Patient has what appears to be repeated infiltrations of the left wrist arterial venous fistula. At this time there is no finding of pseudoaneurysm or infected hematoma. The AV fistula is widely patent. The issue is the need for chronic dialysis with an AV fistula that appears difficult to cannulate. I recommended the AV fistula be put at rest to allow the infiltrated blood to resolve. However, the patient she was very adamant that she did not want to have another dialysis catheter placed. I do not identify a need for open surgical intervention at this time. Therefore the only alternative is to try to temporarily manage her with diuretics though I suspect this will be short-lived process and unsatisfactory for any length of time to manage her fluid overload status. Qualifiers: Encounter type: initial encounter Qualified Code(s): T82.898A - Other sp ecified complication of vascular prosthetic devices, implants and grafts, initial encounter (2) ESRD (end stage renal disease) Current Visit: Yes Status: Chronic Patient in stage V chronic kidney disease. Patient is dialysis dependent. Status post left wrist AV fistula creation April 2017 at outside hospital. - History of Present Illness Consult date: 03/06/18 Consult reason: AV access malfunction Chief complaint: Shortness of breath History of present illness: Ms. Frederick is a 57 year old female Who was admitted on March 05 because of worsening shortness of breath. The patient has not had adequate dialysis or number of days and she was found to be in fluid overload. The patient was admitted for medical treatment. The patient had attempted access of her left upper extremity AV fistula which was unsatisfactory. She then went on to have a left fistulogram by interventional radiology with balloon angioplasty of the area of the arterial venous anastomosis yesterday. I have reviewed the images personally. The patient then went to dialysis today but was only able to tolerate about a 1 hour run when she had infiltration and the dialysis treatment was stopped. The patient has required renal replacement therapy since December 2016. She had a number of catheters placed and she estimates that there were 8 catheters placed. She had 2 episodes of bacteremia and sepsis requiring prolonged hospitaliz ations. She eventually had a left wrist arterial venous fistula created at [facility] in [place] in April 2017. Approximately 2-3 months later she began using the AV fistula. As best I can determine initially she did not have any problems with the use of the fistula but then over the past 1-2 weeks she has had significant issues. One of the other problems that she is encountered is hypotension with her dialysis treatments. The patient has had no surgical revisions of her AV fistula. The fistulogram performed yesterday appears to be the only time the access has been studied with contrast. The patient denied any issues associated with left upper extremity edema or ischemia following creation of her AV access. Past Med Surg Social Fam HX - Past Medical History Medical history: arthritis, asthma, CHF, CVA, DVT, diabetes, dialysis, fibromyalgia, GERD, hyperlipidemia, hypertension, myocardial infarction, renal disease Additional medical history: DVT right foot Psychiatric history: anxiety, depression - Past Surgical History Surgical History: , orthopedic, other, other (Left wrist arterial venous fistula creation at [facility] April 2017) Additional surgical history: d&c. right chest port. right ankle surgery. left FA FISTULA - Social History Smoking Status: Former smoker Smokeless Tobacco Status: No Alcohol use: none Drug use: none - Family History Mother Adopted: No Family Member Ethnicity: Non- Living Status: Hx Family Cardiac Disorders: Yes (HTN) Hx Family Respiratory Disorders: No Hx Family Cancer: Yes (Lung Ca) Hx Family GI Disorders: No Hx Family Endocrine Disorder: No Hx Family Neuromuscular Disorders: No Hx Family Neurologic Disorders: No Hx Family HEENT Disorders: No Hx Family Autoimmune Disorders: No Father Adopted: No Family Member Ethnicity: Non- Living Status: Hx Family Cardiac Disorders: No Hx Family Respiratory Disorders: Yes Hx Family Cancer: Yes (Lung Ca) Hx Family GI Disorders: No Hx Family Endocrine Disorder: No Hx Family Neuromuscular Disorders: No Hx Family Neurologic Disorders: No Hx Family HEENT Disorders: No Hx Family Autoimmune Disorders: No Medications and Allergies Aspirin Enteric Coated [Aspirin EC] 81 mg PO DAILY 04/08/15 [History] Tizanidine HCl 2 mg PO TID PRN 06/27/16 [History] Ergocalciferol (VITAMIN D2) [Vitamin D2] 50,000 unit PO HS 01/16/17 [History] Calcium Acetate [Phos-LO] 2,001 mg PO TID 02/25/17 [History] Insulin LISPRO [Humalog Kwikpen U-100] 5 unit SQ TID 02/25/17 [History] Renal Vitamin [Renal Caps Softgel] 1 mg PO DAILY 04/10/17 [History] Cholecalciferol (D-3) [Vitamin D] 2,000 unit PO DAILY 12/17/17 [History] Furosemide [Lasix] 80 mg PO TID 12/17/17 [History] Sertraline [Zoloft] 50 mg PO DAILY 12/17/17 [History] Albuterol Sulfate [Proair Hfa] 2 puff IH Q4H PRN #2 inh 12/20/17 [Rx] Multivitamin [One Daily Essential] 1 tab PO DAILY 01/09/18 [History] Simvastatin [Zocor] 40 mg PO HS 01/09/18 [History] Budesonide/Formoterol 160/4.5 [Symbicort 160/4.5] 2 puff IH BIDR 03/05/18 [History] Fluticasone Propionate Nasal [Flonase] 1 spr NS DAILY 03/05/18 [History] Insulin DETEMIR [Levemir Flextouch] 10 unit SQ BID 03/05/18 [History] Losartan Potassium [Cozaar] 100 mg PO DAILY 03/05/18 [History] Metoprolol [Lopressor] 100 mg PO BID 03/05/18 [History] NIFEdipine [Nifedipine ER] 60 mg PO DAILY 03/05/18 [History] Omeprazole [PriLOSEC] 20 mg PO DAILY 03/05/18 [History] Allergy/AdvReac Type Severity Reaction Status Date / Time amlodipine Allergy See Verified 04/10/17 08:42 Comments Amoxicillin [From Augmentin] Allergy Itching Verified 04/10/17 08:42 clavulanic acid Allergy Itching Verified 04/10/17 08:42 [From Augmentin] pregabalin [From Lyrica] Allergy Swelling Verified 04/10/17 08:42 of Lip/Tongue/Throat CAROLYN Inhibitors AdvReac Palpitation Verified 04/10/17 08:42 s amitriptyline AdvReac feels drunk Verified 01/09/18 07:58 fenofibrate [From Tricor] AdvReac See Verified 04/10/17 08:42 Comments gabapentin [From Neurontin] AdvReac make me Verified 01/09/18 07:58 sick at my stomach All Systems Review: The remainder of the systems were reviewed and are negative Exam Vital Signs, Last 4 Hours Temp Pulse Resp BP Pulse Ox 03/06/18 17:04 99.6 F 73 19 182/89 97 General: Present: Conversant, No Apparent Distress, Well developed, Well nourished, Other (Obese) HEENT: Present: Atraumatic, Normocephaly, Trachea midline Neck: Absent: JVD, Midline deformity, Tracheal deviation Neuro: Present: Alert and responsive, No focal deficits noted Vascular: Present: Normal capillary refill, Pulse, normal, Color/Temperature (Left hand and right hand are symmetric in color and temperature), Surgical incisions (Left wrist surgical site is well-healed), Other (Patient has an easily palpable pulse over the AV fistula with a loud bruit. The left radial and ulnar pulses are normal. There is no distention of the superficial veins of the upper arm or chest.). Absent: Clubbing, Cyanosis, Edema Skin: Present: No rashes noted on visualized skin Consult Discharge Plan - Plan Additional Instructions: Follow up in wound clinic with Dr. Winn. Referrals: Suresh Mendoza MD [Primary Care Provider] - Tariq Winn DPM [Partnered Physician] -
[2018-03-06] MEDS: *HR* Heparin 5,000 UNIT/ML VIAL SQ SCH (17:17)
[2018-03-06] MEDS: Calcium Acetate 667 MG CAPSULE PO SCH (18:31)
[2018-03-06] MEDS ORDERED: *HR* LORazepam 2 MG/ML VIAL ONE (20:00)
[2018-03-06] MEDS ORDERED: *HR* LORazepam 2 MG/ML VIAL IVP ONE (20:01)
[2018-03-06] MEDS ORDERED: *HR* Labetalol 20 MG/4 ML SYRINGE IVP PRN (20:06)
[2018-03-06] MEDS ORDERED: cloNIDine HCl 0.1 MG TABLET PO ONE (20:08)
[2018-03-06] MEDS ORDERED: *HR* Labetalol 20 MG/4 ML SYRINGE IVP ONE (20:10)
--- NOTE | 2018-03-06 20:41 | Event Note ---
Date of Encounter: 03/06/18 Time of Encounter: 20:36 Pt was c/o having SOB, SpO2 90% on 4l O2. BP was significantly elevated with SBP>180. lung sound diminished with mild crackles. CXR mild vascular congestion. One time 0.2 g clonidine, 10 mg labetalol, and 1 mg IV ativan were given. Pt placed on BiPAP. Symptoms improved.
[2018-03-06] MEDS: Insulin DETEMIR 100 UNIT/ML X5UNITS SQ SCH (21:21)
[2018-03-06] MEDS: Budesonide/Formoterol 160/4.5 1 PUFF INH IH SCH (21:22)
[2018-03-07 04:35] LABS: Hematocrit 31.2 % (35.3-44.9); Hemoglobin 9.6 g/dL (11.5-15.4); Mean Corpuscular HGB Conc 30.8 g/dL (31.6-35.5); Mean Corpuscular Hemoglobin 28.9 pg (28.0-33.3); Mean Platelet Volume 10.4 fL (9.4-12.4); Platelet Count 176 K/mcL (140-400); Red Blood Count 3.32 M/mcL (3.82-4.97); Red Cell Distribution Width 15.6 % (11.5-14.5)
[2018-03-07 04:53] LABS: Calcium 8.4 mg/dL (8.6-10.3); Potassium 5.2 mEq/L (3.5-5.1)
[2018-03-07] MEDS: *HR* Heparin 5,000 UNIT/ML VIAL SQ SCH (06:01)
[2018-03-07] MEDS: *HR* HYDROcodone/Acet 5/325 mg TABLET PO PRN (06:12)
[2018-03-07] MEDS ORDERED: 0.9 % Sodium Chloride 250 ML IVC PRN (07:55)
[2018-03-07] MEDS: Budesonide/Formoterol 160/4.5 1 PUFF INH IH SCH (07:58)
[2018-03-07] MEDS ORDERED: 0.9 % Sodium Chloride 1,000 ML PRIME SCH (08:00)
--- NOTE | 2018-03-07 08:25 | Nephrology Progress Note ---
Date of Encounter: 03/07/18 Time of Encounter: 08:21 - Assessment and Plan (1) ESRD (end stage renal disease) Current Visit: Yes Status: Chronic Current regimen is TTS at [facility]. HD yesterday and ordered for today. HD Access is still not working correctly in HD. IR and Vascular surgery have both evaluated fistula and neither can determine a cause as to why it is malfunctioning. Dr. Sparrow spoke with HD nurses to attempt to access a different aspect of the fistula to see if it will run the entire time. If HD is successsful today then may be d/jennie from a renal standpoint. Will order additional UF or HD as needed. (2) Acute exacerbation of CHF (congestive heart failure) Current Visit: Yes Status: Acute Per primary. 1.5 Liter fluid restriction. Strict I/O Qualifiers: Heart failure type: diastolic Qualified Code(s): I50.33 - Acute on chronic diastolic (congestive) heart failure (3) Fluid overload Current Visit: Yes Status: Acute Per primary, see above. Qualifiers: Hypervolemia type: unspecified Qualified Code(s): E87.70 - Fluid overload, unspecified (4) Anemia Current Visit: Yes Status: Chronic Goal Hgb is 10-11. Hgb is 9.6, stable. Qualifiers: Anemia type: due to chronic kidney disease Chronic kidney disease stage: on chronic dialysis Qualified Code(s): N18.6 - End stage renal disease; D63.1 - Anemia in chronic kidney disease; Z99.2 - Dependence on renal dialysis (5) Foot ulcer, right Current Visit: Yes Status: Chronic Per podiatry, appreciate recommendations. Qualifiers: Non-pressure ulcer stage: with fat layer exposed Qualified Code(s): L97.512 - Non-pressure chronic ulcer of other part of right foot with fat layer exposed Subjective Principal diagnosis: difficulty in breathing Interval history: Pt seen and examined, doing well. Denies CP or SOB. Denies nausea/vomiting/diarrhea. Objective - Vital Signs Vital signs: Vital Signs Temp Pulse Resp BP Pulse Ox 03/07/18 07:29 97.9 F 68 17 172/92 100 03/07/18 03:30 98.1 F 70 17 158/80 98 03/06/18 23:18 99.0 F 75 18 152/82 98 03/06/18 23:12 98.1 F 91 19 90 03/06/18 21:22 20 100 03/06/18 20:05 33 98 03/06/18 19:48 35 90 03/06/18 17:04 99.6 F 73 19 182/89 97 Intake and Output 03/06/18 03/07/18 03/07/18 23:59 07:59 15:59 Other: Weight 109 kg Blood Glucose* 185 165 Patient Weight 03/07/18 23:59 Weight 109 kg - General Appearance General appearance: Present: well-developed, well-nourished EENT: Present: ATNC, hearing intact, vision intact Neck: Present: supple Respiratory: Present: clear Cardiology: Present: no edema, normal S1, normal S2 Dialysis Vascular Access: Arteriovenous Fistula thrill: Yes bruit: Yes Gastrointestinal: Present: normoactive bowel sounds, no tenderness, no guarding Integumentary: Present: no rash, warm and dry Neurologic: Present: alert and oriented x3 Psychiatric: Present: mood/affect appropriate, cooperative - Lab 03/07/18 04:07 03/07/18 04:07 Most recent lab results Calcium 8.4 mg/dL (8.6-10.3) L 03/07/18 04:07 Magnesium 2.1 mg/dL (1.6-2.6) 03/05/18 06:10 Consult Discharge Plan - Plan Additional Instructions: Follow up in wound clinic with Dr. Winn. Home antibiotics for 10 days Referrals: Suresh Mendoza MD [Primary Care Provider] - Tariq Winn DPM [Partnered Physician] -
[2018-03-07] MEDS: Insulin LISPRO 300 UNITS/3 ML VIAL SQ SCH ×2 (08:40→13:57)
[2018-03-07] MEDS: Calcium Acetate 667 MG CAPSULE PO SCH ×2 (08:42→13:56)
[2018-03-07] MEDS: Metoprolol 100 MG TABLET PO SCH ×2 (08:44→13:56)
[2018-03-07] MEDS: Insulin DETEMIR 100 UNIT/ML X5UNITS SQ SCH (08:49)
[2018-03-07] MEDS ORDERED: Aspirin Enteric Coated 81 MG Tablet PO SCH (09:00)
[2018-03-07] MEDS ORDERED: NIFEdipine XL (24 HR) 60 MG TAB.ER.24 PO SCH (09:00)
[2018-03-07] MEDS ORDERED: Multivit/Ca/Min/Fe/FA 1 TAB TABLET PO SCH (09:00)
[2018-03-07] MEDS ORDERED: Cholecalciferol (D-3) 1,000 UNIT TABLET PO SCH (09:00)
[2018-03-07] MEDS ORDERED: Fluticasone Propionate Nasal 50 MCG/SPRAY BOTTLE NS SCH (09:00)
--- NOTE | 2018-03-07 09:37 | Podiatry Progress Note ---
Date of Encounter: 03/07/18 Time of Encounter: 09:35 - Assessment and Plan (1) Foot ulcer Current Visit: Yes Status: Acute #1 right malleolus ulcer measuring 7 x 4 cm. Wound edges dusky with granulation tissue in center. Wound culture pending. #2 right hallux, submetatarsal 1, 2, and distal toes 2, 3, and 4 with dressing clean dry and intact. Nursing to change today. #3 right fifth submetatarsal callus/ulceration with maceration and thick fibrotic center. Wound culture growing gram-negative rods. Started on Cipro IV 400 mg empirically. Changed to 200 mg IV tomorrow and for the next 72 hours. Can switch to by mouth after 72 hours or if discharged prior to that time. Can go home on by mouth antibiotics. #4 covered all wounds to be changed by nursing today. #5 patient will need to follow with Dr. Winn in wound care on Saturday post discharge. Qualifiers: Laterality: right Non-pressure ulcer stage: limited to breakdown of skin Qualified Code(s): L97.511 - Non-pressure chronic ulcer of other part of right foot limited to breakdown of skin Subjective Principal diagnosis: difficulty in breathing Interval history: Patient seen in dialysis. Reports difficulty overnight and breathing and elevated blood pressure. Also reports having difficulty with fistula. Denies any issues or complaints with right foot. Objective - Vital Signs Vital Signs: Vital Signs Temp Pulse Resp BP Pulse Ox 03/07/18 08:00 18 96 03/07/18 07:29 97.9 F 68 17 172/92 100 03/07/18 03:30 98.1 F 70 17 158/80 98 03/06/18 23:18 99.0 F 75 18 152/82 98 03/06/18 23:12 98.1 F 91 19 90 03/06/18 21:22 20 100 03/06/18 20:05 33 98 03/06/18 19:48 35 90 03/06/18 17:04 99.6 F 73 19 182/89 97 Intake and Output 03/06/18 03/07/18 03/07/18 23:59 07:59 15:59 Other: Weight 109 kg Blood Glucose* 185 165 Patient Weight 03/07/18 23:59 Weight 109 kg - Exam Exam: Constitutional: Alert and oriented 3. Pleasant mood. Vascular: 2/4 DP PT pulses bilaterally. 1+ edema Musculoskeletal: Range of motion to ankle, subtalar joint, and forefront joints are free, unrestricted movement, without pain or crepitus bilaterally. Muscle strength 4/5 bilaterally with normal tone bilaterally Integumentary: Skin warm and dry. Wounds noted to right malleolus, right lateral foot, right hallux, right second metatarsal first and second, toes 2, 3, 4. Dressing clean dry and intact. To be changed by nursing today. Neurological: Absent sensation to pinprick and light touch test bilaterally - Lab Result Diagrams: 03/07/18 04:07 03/07/18 04:07 Labs: Abnormal lab results RBC 3.32 M/mcL (3.82-4.97) L 03/07/18 04:07 Hgb 9.6 g/dL (11.5-15.4) L 03/07/18 04:07 Hct 31.2 % (35.3-44.9) L 03/07/18 04:07 MCHC 30.8 g/dL (31.6-35.5) L 03/07/18 04:07 RDW 15.6 % (11.5-14.5) H 03/07/18 04:07 ESR 28 mm/hr (0-15) H 03/05/18 06:16 APTT 23.0 Seconds (26.0-36.0) L 03/05/18 06:10 Heparin Anti-Xa, Unfract 0.00 IU/mL (0.30-0.70) L 03/05/18 06:10 Potassium 5.2 mEq/L (3.5-5.1) H 03/07/18 04:07 BUN 55 mg/dL (6-20) H 03/07/18 04:07 Creatinine 7.85 mg/dL (0.60-1.20) H 03/07/18 04:07 Est GFR ( Amer) 6 (> 60) L 03/07/18 04:07 Est GFR (Non-Af Amer) 5 (> 60) L 03/07/18 04:07 Glucose 159 mg/dL (70-105) H 03/07/18 04:07 POC Glucose 165 mg/dL (70-99) H 03/07/18 07:29 Hemoglobin A1c 6.6 % (-5.6) H 03/05/18 06:10 Calculated Osmolality 302 (280-300) H 03/07/18 04:07 Calcium 8.4 mg/dL (8.6-10.3) L 03/07/18 04:07 C-Reactive Protein 10 mg/L (Less than 10) H 03/05/18 06:10 B-Natriuretic Peptide 1312 pg/mL (Less than 100) H 03/04/18 22:48 Serum Total Protein 6.3 g/dL (6.4-8.9) L 03/05/18 06:10 Microbiology, Last 48 Hours 03/05/18 09:24 Wound Culture - Preliminary Right Foot Gram Negative Daniel Gram Negative Daniel#2 03/05/18 09:24 Wound Culture - Preliminary Right Ankle Staphylococcus aureus Consult Discharge Plan - Plan Additional Instructions: Follow up in wound clinic with Dr. Winn. Home antibiotics for 10 days Referrals: Suresh Mendoza MD [Primary Care Provider] - Tariq Winn DPM [Partnered Physician] -
[2018-03-07 13:26] VITALS: BP 168/92
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
[2018-03-07] MEDS ORDERED: levoFLOXacin 750 MG TABLET PO SCH (15:00)
== END 2018-03-07 15:51 | disposition home or self-care (01) ==
LOC: EMEROOARM 22:17 → 2ANU 22:17
PROVIDERS: ADMIT Pediatrics; ATTEND Pediatrics

== ENCOUNTER 2018-03-18 19:26 | Inpatient (IN) ==
[2018-03-18] MEDS ORDERED: Piperacillin/Tazobactam 3.375 GM in 0.9 % Sodium Chloride Mini Bag 100 ML IVPB ONE (20:21)
[2018-03-18 20:49] LABS: Basophils % 0.5 %; Eosinophils # 0.1 K/mcL (0.0-0.6); Eosinophils % 1.5 %; Hematocrit 33.6 % (35.3-44.9); Hemoglobin 10.5 g/dL (11.5-15.4); Immature Granulocytes % 0.3 % (0-4); Lymphocytes # 1.3 K/mcL (0.6-4.6); Lymphocytes % 19.8 %; Mean Corpuscular HGB Conc 31.3 g/dL (31.6-35.5); Mean Corpuscular Volume 92.8 fL (83.0-100.0); Mean Platelet Volume 9.8 fL (9.4-12.4); Monocytes # 0.6 K/mcL (0.0-1.3); Neutrophils # 4.5 K/mcL (1.6-8.9); Platelet Count 219 K/mcL (140-400); Red Blood Count 3.62 M/mcL (3.82-4.97); Red Cell Distribution Width 15.8 % (11.5-14.5); Segmented Neutrophils % 68.9 %
[2018-03-18 21:08] LABS: Calcium 8.6 mg/dL (8.6-10.3); Potassium 4.3 mEq/L (3.5-5.1)
--- NOTE | 2018-03-18 21:12 | Emergency Department Note ---
Disposition Clinical Impression: Diabetic ulcer of ankle Osteomyelitis Qualifiers: Osteomyelitis type: unspecified type Osteomyelitis location: fibula Laterality: right Qualified Code(s): M86.9 - Osteomyelitis, unspecified Disposition: Admitted As Inpatient Condition: Fair Referrals: Suresh Mendoza MD [Primary Care Provider] - Forms: ED Satisfaction Letter General Adult HPI - General Chief complaint: ED Extremity Problem,Nontraumatic Stated complaint: rt foot pain Time Seen by Provider: 03/18/18 20:10 Source: patient Limitations: no limitations Nursing Notes Reviewed: Yes Vital Signs Reviewed: Yes - History of Present Illness HPI Narrative: 57-year-old female with complex past medical history including end-stage renal disease currently receiving dialysis and diabetes presenting to the emergency department with chief complaint of right ankle wound. Patient states she was admitted approximately 1 week ago and podiatry saw her chronic diabetic ulcer on her outer right ankle. They prescribed her Levaquin after doing wound cultures when she was discharge. Patient is on day 2 of 7 and states the redness has been getting worse the area started draining today and now she is having severe pain radiating up her leg. Patient denies any fevers, chest pain, nausea, vomiting or abdominal pain. States all her pain is located in her ankle. Pain Scale: 10 - Related Data Home Medications Medication Instructions Recorded Confirmed Aspirin Enteric Coated [Aspirin EC] 81 mg PO DAILY 04/08/15 03/05/18 Tizanidine HCl 2 mg PO TID PRN 06/27/16 03/05/18 Ergocalciferol (VITAMIN D2) 50,000 unit PO HS 01/16/17 03/05/18 [Vitamin D2] Calcium Acetate [Phos-LO] 2,001 mg PO TID 02/25/17 03/05/18 Insulin LISPRO [Humalog Kwikpen 5 unit SQ TID 02/25/17 03/05/18 U-100] Renal Vitamin [Renal Caps Softgel] 1 mg PO DAILY 04/10/17 03/05/18 Cholecalciferol (D-3) [Vitamin D] 2,000 unit PO DAILY 12/17/17 03/05/18 Furosemide [Lasix] 80 mg PO TID 12/17/17 03/05/18 Sertraline [Zoloft] 50 mg PO DAILY 12/17/17 03/05/18 Multivitamin [One Daily Essential] 1 tab PO DAILY 01/09/18 03/05/18 Simvastatin [Zocor] 40 mg PO HS 01/09/18 03/05/18 Budesonide/Formoterol 160/4.5 2 puff IH BIDR 03/05/18 03/05/18 [Symbicort 160/4.5] Fluticasone Propionate Nasal 1 spr NS DAILY 03/05/18 03/05/18 [Flonase] Insulin DETEMIR [Levemir Flextouch] 10 unit SQ BID 03/05/18 03/05/18 Losartan Potassium [Cozaar] 100 mg PO DAILY 03/05/18 03/05/18 Metoprolol [Lopressor] 100 mg PO BID 03/05/18 03/05/18 NIFEdipine [Nifedipine ER] 60 mg PO DAILY 03/05/18 03/05/18 Omeprazole [PriLOSEC] 20 mg PO DAILY 03/05/18 03/05/18 Previous Rx's Medication Instructions Recorded Albuterol Sulfate [Proair Hfa] 2 puff IH Q4H PRN #2 inh 12/20/17 Collagenase Oint [Santyl] 1 appl TP DAILY #2 tube 03/07/18 levoFLOXacin [Levaquin] 750 mg PO Q48H #7 tablet 03/07/18 Allergies Allergy/AdvReac Type Severity Reaction Status Date / Time amlodipine Allergy See Verified 03/18/18 19:33 Comments Amoxicillin [From Augmentin] Allergy Itching Verified 03/18/18 19:33 clavulanic acid Allergy Itching Verified 03/18/18 19:33 [From Augmentin] pregabalin [From Lyrica] Allergy Swelling Verified 03/18/18 19:33 of Lip/Tongue/Throat CAROLYN Inhibitors AdvReac Palpitation Verified 03/18/18 19:33 s amitriptyline AdvReac feels drunk Verified 03/18/18 19:33 fenofibrate [From Tricor] AdvReac See Verified 03/18/18 19:33 Comments gabapentin [From Neurontin] AdvReac make me Verified 03/18/18 19:33 sick at my stomach All systems ED: reviewed and negative except as stated. Constitutional: Denies: fever, chills Eyes: Reports: as per HPI ENT ED: Reports: as per HPI Cardiovascular: Denies: chest pain, palpitations, dyspnea on exertion Respiratory: Denies: cough, dyspnea, wheezes Gastrointestinal: Denies: abdominal pain, nausea, vomiting Genitourinary: Reports: as per HPI Musculoskeletal: Reports: as per HPI Integumentary: Reports: other (Ulcer) Neurological: Reports: as per HPI Psychiatric: Reports: as per HPI Endocrine: Reports: as per HPI Hematological/Lymphatic: Reports: as per HPI Allergic/Immunologic: Reports: as per HPI Past Medical History - Past Medical History Attestation: Yes The following information was validated with the patient. Medical history: Reports: arthritis, asthma, CHF, CVA, DVT, diabetes, dialysis, fibromyalgia, GERD, hyperlipidemia, hypertension, myocardial infarction, renal disease Surgical history: Reports: , orthopedic, other, other (Left wrist arterial venous fistula creation at [facility] April 2017) Psychiatric history: Reports: anxiety, depression LICENSED PHYSICAL THERAPIST history: Reports: no LICENSED PHYSICAL THERAPIST history - Social History Smoking Status: Former smoker Smokeless Tobacco Status: No Alcohol use: Reports: none Drug use: Reports: none Physical Exam - General Limitations: no limitations General appearance: alert, in no apparent distress - Head Head exam: atraumatic, normocephalic, normal inspection - Eye Eye exam: Present: normal appearance. Absent: scleral icterus, conjunctival injection - ENT ENT exam: normal exam, mucous membranes moist - Neck Neck exam: Present: normal inspection, full ROM. Absent: tenderness, meningismus - Chest Chest inspection: Present: normal inspection, symmetric chest wall rise. Absent: tenderness, rash - Respiratory Respiratory exam: Present: normal lung sounds bilaterally. Absent: respiratory distress, wheezes - Cardiovascular Cardiovascular exam: Present: regular rate, normal rhythm, normal heart sounds - Abdominal Exam Abdominal exam: Present: soft, Non-Tender. Absent: distention, guarding, rebound - Extremities Exam Extremities exam: Present: other (Large diabetic ulcer noted on the right lateral malleolus. Central opening with minimal discharge. Redness and warmth surrounding the ulcer. Second degree monteiro noted on the sole of the right foot.) - Neurological Exam Neurological exam: Present: alert, oriented X3 - Psychiatric Psychiatric exam: Present: normal affect, normal mood - Skin Skin exam: Present: warm, intact Course Course Narrative: 57-year-old female presenting with worsening diabetic ulcer. Patient is alert and oriented 3 in the room and hemodynamically stable. States she has had wor sening pain and opening of the ulcer on her right lateral malleolus. Patient currently on Levaquin. Patient physical exam does show an opening of a diabetic ulcer and redness and warmth surrounding the area. Patient has severe tenderness to palpation in the area. At this time concern for osteomyelitis versus worsening diabetic ulcer. We will obtain basic laboratory analysis, blood culture and x-ray. Disposition pending results. Patient agrees this plan. - Reevaluation(s) Reevaluation #1: Patient's laboratory analysis shows elevated ESR and CRP. Otherwise unchanged from baseline. X-ray of the ankle concerning for early osteomyelitis. At this time we will provide the patient with vancomycin, Zosyn and cefepime. We will plan to admit the patient for further IV antibiotics and podiatry consultation for osteomyelitis. Agent has remained alert and oriented 3 and hemodynamically stable in the room. Patient agrees with this plan. Vital Signs Temperature 97.6 F 03/18/18 19:27 Pulse Rate 78 03/18/18 19:27 Respiratory Rate 16 03/18/18 19:27 Blood Pressure 144/79 03/18/18 19:27 O2 Sat by Pulse Oximetry 98 03/18/18 19:27 Temperature 97.6 F 03/18/18 19:27 Pulse Rate 78 03/18/18 19:27 Respiratory Rate 16 03/18/18 19:27 Blood Pressure 144/79 03/18/18 19:27 O2 Sat by Pulse Oximetry 98 03/18/18 19:27 Oxygen Delivery Oxygen Delivery Room Air Medical Decision Making - Lab Data Result diagrams: 03/18/18 20:19 03/18/18 20:19 Lab Results 03/18/18 03/18/18 03/18/18 Range/Units 20:19 20:19 20:20 WBC 6.5 (4.3-11.1) K/mcL RBC 3.62 L (3.82-4.97) M/mcL Hgb 10.5 L (11.5-15.4) g/dL Hct 33.6 L (35.3-44.9) % MCV 92.8 (83.0-100.0) fL MCH 29.0 (28.0-33.3) pg MCHC 31.3 L (31.6-35.5) g/dL RDW 15.8 H (11.5-14.5) % Plt Count 219 (140-400) K/mcL MPV 9.8 (9.4-12.4) fL Immature Gran % 0.3 (0-4) % Seg Neutrophils % 68.9 % Lymphocytes % 19.8 % Monocytes % 9.0 % Eosinophils % 1.5 % Basophils % 0.5 % Neutrophils # 4.5 (1.6-8.9) K/mcL Lymphocytes # 1.3 (0.6-4.6) K/mcL Monocytes # 0.6 (0.0-1.3) K/mcL Eosinophils # 0.1 (0.0-0.6) K/mcL Basophils # 0.0 (0.0-0.2) K/mcL ESR 79 H (0-15) mm/hr Sodium 140 (136-145) mEq/L Potassium 4.3 (3.5-5.1) mEq/L Chloride 99 (98-107) mEq/L Carbon Dioxide 30 H (23-29) mEq/L BUN 29 H (6-20) mg/dL Creatinine 5.61 H (0.60-1.20) mg/dL Est GFR ( Amer) 9 L (> 60) Est GFR (Non-Af Amer) 8 L (> 60) BUN/Creatinine Ratio 5 L (6-26) Glucose 186 H (70-105) mg/dL Calculated Osmolality 301 H (280-300) Calcium 8.6 (8.6-10.3) mg/dL C-Reactive Protein (Less than 10) mg/L 03/18/ Range/Units 20:20 WBC (4.3-11.1) K/mcL RBC (3.82-4.97) M/mcL Hgb (11.5-15.4) g/dL Hct (35.3-44.9) % MCV (83.0-100.0) fL MCH (28.0-33.3) pg MCHC (31.6-35.5) g/dL RDW (11.5-14.5) % Plt Count (140-400) K/mcL MPV (9.4-12.4) fL Immature Gran % (0-4) % Seg Neutrophils % % Lymphocytes % % Monocytes % % Eosinophils % % Basophils % % Neutrophils # (1.6-8.9) K/mcL Lymphocytes # (0.6-4.6) K/mcL Monocytes # (0.0-1.3) K/mcL Eosinophils # (0.0-0.6) K/mcL Basophils # (0.0-0.2) K/mcL ESR (0-15) mm/hr Sodium (136-145) mEq/L Potassium (3.5-5.1) mEq/L Chloride (98-107) mEq/L Carbon Dioxide (23-29) mEq/L BUN (6-20) mg/dL Creatinine (0.60-1.20) mg/dL Est GFR ( Amer) (> 60) Est GFR (Non-Af Amer) (> 60) BUN/Creatinine Ratio (6-26) Glucose (70-105) mg/dL Calculated Osmolality (280-300) Calcium (8.6-10.3) mg/dL C-Reactive Protein 18 H (Less than 10) mg/L
[2018-03-18] MEDS ORDERED: Cefepime HCl 1,000 MG in 0.9 % Sodium Chloride Mini Bag 100 ML IVPB STA (21:16)
[2018-03-18] MEDS ORDERED: *HR* LORazepam 1 MG TABLET PO ONE (21:24)
--- NOTE | 2018-03-18 21:26 | Emergency Department Note ---
Disposition Referrals: Suresh Mendoza MD [Primary Care Provider] - Forms: ED Satisfaction Letter General Adult HPI - General Chief complaint: ED Extremity Problem,Nontraumatic Stated complaint: rt foot pain Time Seen by Provider: 03/18/18 20:10 Source: patient Limitations: no limitations - History of Present Illness Pain Scale: 10 - Related Data Home Medications Medication Instructions Recorded Confirmed Aspirin Enteric Coated [Aspirin EC] 81 mg PO DAILY 04/08/15 03/05/18 Tizanidine HCl 2 mg PO TID PRN 06/27/16 03/05/18 Ergocalciferol (VITAMIN D2) 50,000 unit PO HS 01/16/17 03/05/18 [Vitamin D2] Calcium Acetate [Phos-LO] 2,001 mg PO TID 02/25/17 03/05/18 Insulin LISPRO [Humalog Kwikpen 5 unit SQ TID 02/25/17 03/05/18 U-100] Renal Vitamin [Renal Caps Softgel] 1 mg PO DAILY 04/10/17 03/05/18 Cholecalciferol (D-3) [Vitamin D] 2,000 unit PO DAILY 12/17/17 03/05/18 Furosemide [Lasix] 80 mg PO TID 12/17/17 03/05/18 Sertraline [Zoloft] 50 mg PO DAILY 12/17/17 03/05/18 Multivitamin [One Daily Essential] 1 tab PO DAILY 01/09/18 03/05/18 Simvastatin [Zocor] 40 mg PO HS 01/09/18 03/05/18 Budesonide/Formoterol 160/4.5 2 puff IH BIDR 03/05/18 03/05/18 [Symbicort 160/4.5] Fluticasone Propionate Nasal 1 spr NS DAILY 03/05/18 03/05/18 [Flonase] Insulin DETEMIR [Levemir Flextouch] 10 unit SQ BID 03/05/18 03/05/18 Losartan Potassium [Cozaar] 100 mg PO DAILY 03/05/18 03/05/18 Metoprolol [Lopressor] 100 mg PO BID 03/05/18 03/05/18 NIFEdipine [Nifedipine ER] 60 mg PO DAILY 03/05/18 03/05/18 Omeprazole [PriLOSEC] 20 mg PO DAILY 03/05/18 03/05/18 Previous Rx's Medication Instructions Recorded Albuterol Sulfate [Proair Hfa] 2 puff IH Q4H PRN #2 inh 12/20/17 Collagenase Oint [Santyl] 1 appl TP DAILY #2 tube 03/07/18 levoFLOXacin [Levaquin] 750 mg PO Q48H #7 tablet 03/07/18 Allergies Allergy/AdvReac Type Severity Reaction Status Date / Time amlodipine Allergy See Verified 03/18/18 19:33 Comments Amoxicillin [From Augmentin] Allergy Itching Verified 03/18/18 19:33 clavulanic acid Allergy Itching Verified 03/18/18 19:33 [From Augmentin] pregabalin [From Lyrica] Allergy Swelling Verified 03/18/18 19:33 of Lip/Tongue/Throat CAROLYN Inhibitors AdvReac Palpitation Verified 03/18/18 19:33 s amitriptyline AdvReac feels drunk Verified 03/18/18 19:33 fenofibrate [From Tricor] AdvReac See Verified 03/18/18 19:33 Comments gabapentin [From Neurontin] AdvReac make me Verified 03/18/18 19:33 sick at my stomach Constitutional: Denies: fever, chills Eyes: Reports: as per HPI ENT ED: Reports: as per HPI Cardiovascular: Denies: chest pain, palpitations, dyspnea on exertion Respiratory: Denies: cough, dyspnea, wheezes Gastrointestinal: Denies: abdominal pain, nausea, vomiting Genitourinary: Reports: as per HPI Musculoskeletal: Reports: as per HPI Integumentary: Reports: other (Ulcer) Neurological: Reports: as per HPI Psychiatric: Reports: as per HPI Endocrine: Reports: as per HPI Hematological/Lymphatic: Reports: as per HPI Allergic/Immunologic: Reports: as per HPI Past Medical History - Past Medical History Medical history: Reports: arthritis, asthma, CHF, CVA, DVT, diabetes, dialysis, fibromyalgia, GERD, hyperlipidemia, hypertension, myocardial infarction, renal disease Surgical history: Reports: , orthopedic, other, other (Left wrist arterial venous fistula creation at [facility] April 2017) Psychiatric history: Reports: anxiety, depression STORY READER history: Reports: no STORY READER history - Social History Smoking Status: Former smoker Smokeless Tobacco Status: No Alcohol use: Reports: none Drug use: Reports: none Physical Exam - General Limitations: no limitations General appearance: alert, in no apparent distress Course Vital Signs Temperature 97.6 F 03/18/18 19:27 Pulse Rate 78 03/18/18 19:27 Respiratory Rate 16 03/18/18 19:27 Blood Pressure 144/79 03/18/18 19:27 O2 Sat by Pulse Oximetry 98 03/18/18 19:27 Temperature 97.6 F 03/18/18 19:27 Pulse Rate 78 03/18/18 19:27 Respiratory Rate 16 03/18/18 19:27 Blood Pressure 144/79 03/18/18 19:27 O2 Sat by Pulse Oximetry 98 03/18/18 19:27 Oxygen Delivery Oxygen Delivery Room Air Medical Decision Making - Lab Data Result diagrams: 03/18/18 20:19 03/18/18 20:19 Lab Results 03/18/18 03/18/18 03/18/18 Range/Units 20:19 20:19 20:20 WBC 6.5 (4.3-11.1) K/mcL RBC 3.62 L (3.82-4.97) M/mcL Hgb 10.5 L (11.5-15.4) g/dL Hct 33.6 L (35.3-44.9) % MCV 92.8 (83.0-100.0) fL MCH 29.0 (28.0-33.3) pg MCHC 31.3 L (31.6-35.5) g/dL RDW 15.8 H (11.5-14.5) % Plt Count 219 (140-400) K/mcL MPV 9.8 (9.4-12.4) fL Immature Gran % 0.3 (0-4) % Seg Neutrophils % 68.9 % Lymphocytes % 19.8 % Monocytes % 9.0 % Eosinophils % 1.5 % Basophils % 0.5 % Neutrophils # 4.5 (1.6-8.9) K/mcL Lymphocytes # 1.3 (0.6-4.6) K/mcL Monocytes # 0.6 (0.0-1.3) K/mcL Eosinophils # 0.1 (0.0-0.6) K/mcL Basophils # 0.0 (0.0-0.2) K/mcL ESR 79 H (0-15) mm/hr Sodium 140 (136-145) mEq/L Potassium 4.3 (3.5-5.1) mEq/L Chloride 99 (98-107) mEq/L Carbon Dioxide 30 H (23-29) mEq/L BUN 29 H (6-20) mg/dL Creatinine 5.61 H (0.60-1.20) mg/dL Est GFR ( Amer) 9 L (> 60) Est GFR (Non-Af Amer) 8 L (> 60) BUN/Creatinine Ratio 5 L (6-26) Glucose 186 H (70-105) mg/dL Calculated Osmolality 301 H (280-300) Calcium 8.6 (8.6-10.3) mg/dL C-Reactive Protein (Less than 10) mg/L 03/18/18 Range/Units 20:20 WBC (4.3-11.1) K/mcL RBC (3.82-4.97) M/mcL Hgb (11.5-15.4) g/dL Hct (35.3-44.9) % MCV (83.0-100.0) fL MCH (28.0-33.3) pg MCHC (31.6-35.5) g/dL RDW (11.5-14.5) % Plt Count (140-400) K/mcL MPV (9.4-12.4) fL Immature Gran % (0-4) % Seg Neutrophils % % Lymphocytes % % Monocytes % % Eosinophils % % Basophils % % Neutrophils # (1.6-8.9) K/mcL Lymphocytes # (0.6-4.6) K/mcL Monocytes # (0.0-1.3) K/mcL Eosinophils # (0.0-0.6) K/mcL Basophils # (0.0-0.2) K/mcL ESR (0-15) mm/hr Sodium (136-145) mEq/L Potassium (3.5-5.1) mEq/L Chloride (98-107) mEq/L Carbon Dioxide (23-29) mEq/L BUN (6-20) mg/dL Creatinine (0.60-1.20) mg/dL Est GFR ( Amer) (> 60) Est GFR (Non-Af Amer) (> 60) BUN/Creatinine Ratio (6-26) Glucose (70-105) mg/dL Calculated Osmolality (280-300) Calcium (8.6-10.3) mg/dL C-Reactive Protein 18 H (Less than 10) mg/L Attestation Statement - Attestation Attestation: I examined this patient and my medical decision-making was reviewed with the Resident Physician. I agree with the documented findings, disposition and treatment plan as described except to the extent set forth below. Findings consistent with infected diabetic ulcer. Concern for underlying osteomyelitis. We will start antibiotics, consult podiatry, admitted for further management and surgical debridement.
[2018-03-19] MEDS: Acetaminophen 325 MG TABLET PO PRN (00:25)
[2018-03-19] MEDS ORDERED: tiZANidine 4 MG TABLET PO PRN (09:37)
[2018-03-19] MEDS ORDERED: Naloxone 0.4 MG/ML INJ IVP PRN (09:40)
--- NOTE | 2018-03-19 09:55 | Internal Med History&Physical ---
Date of Encounter: 03/19/18 Time of Encounter: 09:45 Internal Medicine - H&P: HPI Chief complaint: Rt leg pain Admitted From: Home Plans for Post Hospital Care: Home History of present illness: Ms. Frederick is a 57 year old female with PMH of ESRD on dialysis TTS, DM, HTN, Diastolic CHF, Asthma, HTN, HLD and CAD coming with complains of right ankle wound associated with pain starting yesterday. Patient was admitted about a week or so ago for shortness of breath and was treated for volume overload with dialysis and diuresis. VQ scan at that time showed low probability. Patient at that time had right lower extremity ankle wound which was seen by Podiatry and was treated with fluoroquinolone for 7 days on discharge. Wound culture at that time grew Proteus and MSSA. During interview patient denies any pain. She mentioned the pain woke her up from her sleep. Pain was about 8-10 in intensity radiating to her foot. She has one on her right ankle and foot for many years being followed with Dr. Winn. He also started after she had injury on her foot from glass. Denies any fevers or chills, chest pain shortness of breath . No significant drainage from the wound. Was on Levaquin day 4 that was prescribed on last admission. Patient received vancomycin and Zosyn and cefepime in ER as ankle x-ray showed suspicion of early osteomyelitis. Patient has some allergies to amoxicillin that month in namely itching. Did not have any reaction to Zosyn. We will felt dry mouth and shaking after she received vancomycin. Currently feeling well. Denies any constipation or diarrhea. Past Med Surg Social Fam HX - Past Medical History Medical history: arthritis, asthma, CHF, diabetes, dialysis, fibromyalgia, GERD, hyperlipidemia, hypertension, myocardial infarction, renal disease Additional medical history: DVT right foot. ESDR-dialysis [id number] Psychiatric history: anxiety, depression - Past Surgical History Surgical History: , orthopedic, other, other Additional surgical history: d&c. right chest port. right ankle surgery. left FA FISTULA - Social History Smoking Status: Former smoker Smokeless Tobacco Status: No Alcohol use: none Drug use: none - Family History Mother Adopted: No Family Member Ethnicity: Non- Living Status: Hx Family Cardiac Disorders: Yes (HTN) Hx Family Respiratory Disorders: No Hx Family Cancer: Yes (Lung Ca) Hx Family GI Disorders: No Hx Family Endocrine Disorder: No Hx Family Neuromuscular Disorders: No Hx Family Neurologic Disorders: No Hx Family HEENT Disorders: No Hx Family Autoimmune Disorders: No Father Adopted: No Family Member Ethnicity: Non- Living Status: Hx Family Cardiac Disorders: No Hx Family Respiratory Disorders: Yes Hx Family Cancer: Yes (Lung Ca) Hx Family GI Disorders: No Hx Family Endocrine Disorder: No Hx Family Neuromuscular Disorders: No Hx Family Neurologic Disorders: No Hx Family HEENT Disorders: No Hx Family Autoimmune Disorders: No - Additional Family History Additional family history: Lung cancer and renal failure in mother. Internal Medicine - H&P: Meds Aspirin Enteric Coated [Aspirin EC] 81 mg PO DAILY 04/08/15 [History] Tizanidine HCl 2 mg PO TID PRN 06/27/16 [History] Ergocalciferol (VITAMIN D2) [Vitamin D2] 50,000 unit PO HS 01/16/17 [History] Calcium Acetate [Phos-LO] 2,001 mg PO TID 02/25/17 [History] Insulin LISPRO [Humalog Kwikpen U-100] 5 unit SQ TID 02/25/17 [History] Renal Vitamin [Renal Caps Softgel] 1 mg PO DAILY 04/10/17 [History] Cholecalciferol (D-3) [Vitamin D] 2,000 unit PO DAILY 12/17/17 [History] Furosemide [Lasix] 80 mg PO TID 12/17/17 [History] Sertraline [Zoloft] 50 mg PO DAILY 12/17/17 [History] Albuterol Sulfate [Proair Hfa] 2 puff IH Q4H PRN #2 inh 12/20/17 [Rx] Multivitamin [One Daily Essential] 1 tab PO DAILY 01/09/18 [History] Simvastatin [Zocor] 40 mg PO HS 01/09/18 [History] Budesonide/Formoterol 160/4.5 [Symbicort 160/4.5] 2 puff IH BIDR 03/05/18 [History] Fluticasone Propionate Nasal [Flonase] 1 spr NS DAILY 03/05/18 [History] Insulin DETEMIR [Levemir Flextouch] 10 unit SQ BID 03/05/18 [History] Losartan Potassium [Cozaar] 100 mg PO DAILY 10/17/18 [History] Metoprolol [Lopressor] 100 mg PO BID 03/05/18 [History] NIFEdipine [Nifedipine ER] 60 mg PO DAILY 03/05/18 [History] Omeprazole [PriLOSEC] 20 mg PO DAILY 03/05/18 [History] Collagenase Oint [Santyl] 1 appl TP DAILY #2 tube 03/07/18 [Rx] levoFLOXacin [Levaquin] 750 mg PO Q48H #7 tablet 03/07/18 [Rx] Allergy/AdvReac Type Severity Reaction Status Date / Time vancomycin Allergy Intermediate Itching Verified 03/19/18 13:25 amlodipine Allergy See Verified 03/18/18 19:33 Comments Amoxicillin [From Augmentin] Allergy Itching Verified 03/18/18 19:33 clavulanic acid Allergy Itching Verified 03/18/18 19:33 [From Augmentin] pregabalin [From Lyrica] Allergy Swelling Verified 03/18/18 19:33 of Lip/Tongue/Throat CAROLYN Inhibitors AdvReac Palpitation Verified 03/18/18 19:33 s amitriptyline AdvReac feels drunk Verified 03/18/18 19:33 fenofibrate [From Tricor] AdvReac See Verified 03/18/18 19:33 Comments gabapentin [From Neurontin] AdvReac make me Verified 03/18/18 19:33 sick at my stomach All Systems PM: A 10-system review of systems was performed and is negative for pertinent findings except as documented above in the HPI. - Constitutional Vitals: Temp Pulse Resp BP Pulse Ox 98.2 F 74 16 135/76 98 03/19/18 07:24 03/19/18 07:24 03/19/18 07:24 03/19/18 07:24 03/19/18 07:24 General appearance: Present: no acute distress Exam: Constitutional: Vitals as noted. Conversant. No Apparent Distress Obese Eyes : Sclera white, conjunctiva clear, no lid lag, PEARLA. ENT : Grossly normal hearing. Oropharyngeal exam unremarkable. Moist mucus membranes. No JVD, no cervical lymphadenopathy. no thyromegaly or mass. Respiratory : Clear to auscultation bilaterally. No accessory muscle use, rales, rhonchi or wheezes Cardiovascular : RRR, +S1, +S2. no murmur, gallop, rubs. No chest wall tenderness GI/Abdominal : Soft, Non-tender, Non-distended, normal bowel sounds, soft, no peritoneal signs. no orgenomegaly or mass appreciated. no hernia. Musculoskeletal: no deformity noted. no edema or cyanosis. warm extremities, pulses palpable and symmetrical in UE/LE. no calf tenderness. Neurological: AO X3, CN II-XII grossly intact. Grossly normal motor exam. Decreased sensation on both legs bilaterally and somewhat on both hands. Skin: Ulcer 4x4 cm on Rt lateral maleolus with erythema and warmth and mild fluctuance. Healing monteiro lesion noted on sole of foot . Internal Med - H&P Results - Labs CBC & Chem 7: 03/18/18 20:19 03/18/18 20:19 Labs: Short CBC 03/18/18 Range/Units 20:19 WBC 6.5 (4.3-11.1) K/mcL Hgb 10.5 L (11.5-15.4) g/dL Hct 33.6 L (35.3-44.9) % Plt Count 219 (140-400) K/mcL Neutrophils # 4.5 (1.6-8.9) K/mcL BMP 03/18/18 20:19 Sodium 140 Potassium 4.3 Chloride 99 Carbon Dioxide 30 H BUN 29 H Creatinine 5.61 H Glucose 186 H Calcium 8.6 - Impressions ITS Impressions Ankle X-Ray 03/18/18 20:20 IMPRESSION: Large lateral ankle soft tissue ulcer. No ty osseous destruction although there is mild thinning/loss of the cortical white line along the distal fibula which could indicate early osteomyelitis. Contrast-enhanced MRI could clarify. Chronic deformity of the little toe. D/ / Carter Nascimento / Carter Nascimento Interpreting Provider: Carter Nascimento - Assessment and plan (1) Diabetic ulcer of ankle Current Visit: Yes Status: Chronic Assessment and plan: Long-standing ulcer with possible osteomyelitis - ESR of 79 , CRP of 18 - Obtained MR without contrast to further evaluate - Continue vancomycin and Zosyn renally adjusted - Follow-up wound culture - Podiatry and infectious disease consulted (2) History of end stage renal disease Current Visit: No Status: Acute Assessment and plan: - Gets dialysis on Saturday. - Currently appears euvolemic - Continue dialysis per nephrology (3) Diabetes Current Visit: No Status: Chronic Assessment and plan: - Continue home Levemir along with sliding scale and Accu-Cheks Qualifiers: Qualified Code(s): E11.42 - Type 2 diabetes mellitus with diabetic polyneuropathy; Z79.4 - USP (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 - Time Spent With Patient Total time spent is greater than 50% in coordination of care (as documented) at patient's floor/unit and/or counseling patient:
[2018-03-19] MEDS ORDERED: Piperacillin/Tazobactam 3.375 GM in 0.9 % Sodium Chloride Mini Bag 100 ML IVPB SCH (10:12)
[2018-03-19] MEDS: Budesonide/Formoterol 160/4.5 1 PUFF INH IH SCH ×2 (10:52→22:30)
--- NOTE | 2018-03-19 10:58 | Nephrology Consult Note ---
Date of Encounter: 03/19/18 Time of Encounter: 10:54 Assessment and Plan (1) ESRD (end stage renal disease) on dialysis Current Visit: No Status: Chronic HD TRS Renal vitamins. Renal dose medications. Renal diet. Additional dialysis and ultrafiltration as needed. Last hemodialysis was Saturday and she reports no problems with that dialysis session. She has a left forearm fistula with a good thrill and bruit. No need for dialysis today. Plan to resume dialysis tomorrow. (2) Diabetic ulcer of ankle Current Visit: Yes Status: Acute We will defer to podiatry and the primary team. (3) Anemia Current Visit: No Status: Chronic Transfuse as needed. Qualifiers: Anemia type: due to chronic kidney disease Chronic kidney disease stage: on chronic dialysis Qualified Code(s): N18.6 - End stage renal disease; D63.1 - Anemia in chronic kidney disease; Z99.2 - Dependence on renal dialysis (4) Hypertension Current Visit: No Status: Chronic Titrate antihypertensive medication as needed. Qualifiers: Hypertension type: essential hypertension Qualified Code(s): I10 - Essential (primary) hypertension (5) Morbid obesity Current Visit: No Status: Chronic Outpatient management. History of Present Illness - Reason for Consult Consult date: 03/19/18 end stage renal disease - Chief Complaint ESRD - History of Present Illness Ms. Frederick is a 57-year-old woman with a history of end-stage renal disease who dialyzes on Saturday and Saturday at [facility] and presents for evaluation of a right lateral ankle wound. The patient was recently in the hospital and was in her usual state of health when the day prior to admission she noticed some pain in her right ankle which worsened and then she noticed that the area had a "hole". She presented to the hospital and was admitted for further evaluation of her ankle. At the time my evaluation she denies chest pain, chest pain, shortness of breath, fevers, chills, or any other problems. Past Med Surg Social Fam HX - Past Medical History Medical history: arthritis, asthma, CHF, diabetes, dialysis, fibromyalgia, GERD, hyperlipidemia, hypertension, myocardial infarction, renal disease Additional medical history: DVT right foot. ESDR-dialysis Psychiatric history: anxiety, depression - Past Surgical History Surgical History: , orthopedic, other, other Additional surgical history: d&c. right chest port. right ankle surgery. left FA FISTULA - Social History Smoking Status: Former smoker Smokeless Tobacco Status: No Alcohol use: none Drug use: none - Family History Mother Adopted: No Family Member Ethnicity: Non- Living Status: Hx Family Cardiac Disorders: Yes (HTN) Hx Family Respiratory Disorders: No Hx Family Cancer: Yes (Lung Ca) Hx Family GI Disorders: No Hx Family Endocrine Disorder: No Hx Family Neuromuscular Disorders: No Hx Family Neurologic Disorders: No Hx Family HEENT Disorders: No Hx Family Autoimmune Disorders: No Father Adopted: No Family Member Ethnicity: Non- Living Status: Hx Family Cardiac Disorders: No Hx Family Respiratory Disorders: Yes Hx Family Cancer: Yes (Lung Ca) Hx Family GI Disorders: No Hx Family Endocrine Disorder: No Hx Family Neuromuscular Disorders: No Hx Family Neurologic Disorders: No Hx Family HEENT Disorders: No Hx Family Autoimmune Disorders: No Medications and Allergies Aspirin Enteric Coated [Aspirin EC] 81 mg PO DAILY 04/08/15 [History] Tizanidine HCl 2 mg PO TID PRN 06/27/16 [History] Ergocalciferol (VITAMIN D2) [Vitamin D2] 50,000 unit PO HS 01/16/17 [History] Calcium Acetate [Phos-LO] 2,001 mg PO TID 02/25/17 [History] Insulin LISPRO [Humalog Kwikpen U-100] 5 unit SQ TID 02/25/17 [History] Renal Vitamin [Renal Caps Softgel] 1 mg PO DAILY 04/10/17 [History] Cholecalciferol (D-3) [Vitamin D] 2,000 unit PO DAILY 12/17/17 [History] Furosemide [Lasix] 80 mg PO TID 12/17/17 [History] Sertraline [Zoloft] 50 mg PO DAILY 12/17/17 [History] Albuterol Sulfate [Proair Hfa] 2 puff IH Q4H PRN #2 inh 12/20/17 [Rx] Multivitamin [One Daily Essential] 1 tab PO DAILY 01/09/18 [History] Simvastatin [Zocor] 40 mg PO HS 01/09/18 [History] Budesonide/Formoterol 160/4.5 [Symbicort 160/4.5] 2 puff IH BIDR 03/05/18 [History] Fluticasone Propionate Nasal [Flonase] 1 spr NS DAILY 03/05/18 [History] Insulin DETEMIR [Levemir Flextouch] 10 unit SQ BID 03/05/18 [History] Losartan Potassium [Cozaar] 100 mg PO DAILY 03/05/18 [History] Metoprolol [Lopressor] 100 mg PO BID 03/05/18 [History] NIFEdipine [Nifedipine ER] 60 mg PO DAILY 03/05/18 [History] Omeprazole [PriLOSEC] 20 mg PO DAILY 03/05/18 [History] Collagenase Oint [Santyl] 1 appl TP DAILY #2 tube 03/07/18 [Rx] levoFLOXacin [Levaquin] 750 mg PO Q48H #7 tablet 03/07/18 [Rx] Allergy/AdvReac Type Severity Reaction Status Date / Time amlodipine Allergy See Verified 03/18/18 19:33 Comments Amoxicillin [From Augmentin] Allergy Itching Verified 03/18/18 19:33 clavulanic acid Allergy Itching Verified 03/18/18 19:33 [From Augmentin] pregabalin [From Lyrica] Allergy Swelling Verified 03/18/18 19:33 of Lip/Tongue/Throat CAROLYN Inhibitors AdvReac Palpitation Verified 03/18/18 19:33 s amitriptyline AdvReac feels drunk Verified 03/18/18 19:33 fenofibrate [From Tricor] AdvReac See Verified 03/18/18 19:33 Comments gabapentin [From Neurontin] AdvReac make me Verified 03/18/18 19:33 sick at my stomach Review of Systems All Systems: reviewed and no additional remarkable complaints except as stated (As documented in history of present illness) Exam - Vital Signs Vital signs: Initial Vital Signs Temp Pulse Resp BP Pulse Ox 97.6 F 78 16 144/79 98 03/18/18 19:27 03/18/18 19:27 03/18/18 19:27 03/18/18 19:27 03/18/18 19:27 Vital Signs - Last 8 Hours Temp Pulse Resp BP Pulse Ox 03/19/18 07:24 98.2 F 74 16 135/76 98 03/19/18 04:59 97 03/19/18 03:33 98.8 F 83 14 148/76 97 Intake and Output 03/18/18 03/19/18 03/19/18 23:59 07:59 15:59 Intake Total 100 / 100 350 / 350 Output Total 0 / 0 0 / 0 Balance 100 / 100 350 / 350 Intake: IV Fluids 100 / 100 350 / 350 Maxipime 1,000 MG In 0.9 % 100 / 100 Sodium Chloride (Mini-Bag +) 100 ML @ 200 mls/hr IVPB NOW STA Rx#:[id number] Zosyn 3.375 GM In 0.9 % Sodium 100 / 100 Chloride (Mini-Bag +) 100 ML @ 25 mls/hr IVPB ONCE ONE Rx#: [id number] Vancocin 1,500 MG In 0.9 % 250 / 250 Sodium Chloride 250 ML @ 167 mls/hr IVPB ONCE ONE Rx#: [id number] Oral 0 / 0 0 / 0 Output: Urine 0 / 0 0 / 0 Other: Weight 96.4 kg 96.4 kg Blood Glucose* 166 Patient Weight 03/19/18 23:59 Weight 96.4 kg - General Appearance General appearance: well-developed, well-nourished EENT: ATNC Neck: supple Respiratory: course breath sounds Cardiology: no edema, regular rate - Dialysis Access Dialysis Vascular Access: Arteriovenous Fistula thrill: Yes bruit: Yes Gastrointestinal: normoactive bowel sounds, no tenderness Integumentary: warm and dry Neurologic: alert and oriented x3 Musculoskeletal: no cyanosis Psychiatric: mood/affect appropriate Results - Lab Results 03/18/18 20:19 03/18/18 20:19 Most recent lab results Calcium 8.6 mg/dL (8.6-10.3) 03/18/18 20:19 Consult Discharge Plan - Plan Referrals: Suresh Mendoza MD [Primary Care Provider] -
[2018-03-19] MEDS ORDERED: Vancomycin 1 EACH in 0.9 % Sodium Chloride 250 ML IVPB SCH (11:00)
[2018-03-19] MEDS ORDERED: *HR* Dextrose 50 % in Water (Syg) 50 ML SYRINGE IVP PRN (11:07)
[2018-03-19] MEDS ORDERED: D5% in Water 1,000 ML IVC PRN (11:07)
[2018-03-19] MEDS ORDERED: Dextrose Gel 15 GM/37.5 ML TUBE PO PRN ×2 (11:07)
[2018-03-19] MEDS: Calcium Acetate 667 MG CAPSULE PO SCH ×2 (11:24→16:41)
[2018-03-19] MEDS: Furosemide 40 MG TABLET PO SCH ×2 (11:24→16:38)
[2018-03-19] MEDS: Insulin LISPRO 300 UNITS/3 ML VIAL SQ SCH ×2 (11:25→16:38)
--- NOTE | 2018-03-19 11:28 | Infectious Disease Consult ---
Date of Encounter: 03/19/18 Time of Encounter: 11:22 Assessment and Plan (1) Osteomyelitis Status: Ruled-out Assessment and plan: Location: Right lateral ankle. Causative organism unclear, but previous wound culture grew E. coli, Proteus, and MSSA. X-ray of the right ankle showed no ty osseous destruction although there is mild thinning/loss of the cortical white line along the distal fibula which could indicate early osteomyelitis. ESR 79, CRP 18. No SIRS criteria noted. Blood cultures drawn 03/18/18 are pending x 2 sets. Podiatry consulted. Await recommendations. Recommendations: - MRI of the right ankle ordered by the primary team and pending completion. - Get wound culture. - Wound care per the Podiatry team. - Continue Zosyn 3.375 grams IV Q8H. The patient has a documented allergy to Augmentin, but has tolerated Zosyn without a problem thus far. - Discontinue Vancomycin since the patient had some sort of reaction to it. -Start Daptomycin 6mg/kg IV Q48H. Dose-adjusted for her HD status. - Check baseline CK level. - Stop simvastatin while on Daptomycin. - Duration of treatment depends on the clinical picture. - Monitor renal function and for drug toxicity and dose-adjust antibiotics. 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 Secondary to previous pressure ulcer. Etiology of non-healing unclear. Podiatry consulted. Await recommendations. Wound care per the Podiatry team. (3) History of end stage renal disease Status: Acute Assessment and plan: Nephrology consulted and following. (4) Diabetes Status: Chronic Assessment and plan: Controlled. HgbA1C 6.6%. Management per the primary team. 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 Frederick is a 57 year old female past medical history of end-stage renal disease on hemodialysis Saturday, , Saturday, CHF, CVA, DVT, fibromyalgia, hyperlipidemia, hypertension, and a left wrist AV fistula. The patient was admitted to the hospital 03/18/18 for right ankle diabetic ulcer. We are consulted March 19 for further recommendations for osteomyelitis. Briefly, the patient is a 57-year-old female with past medical history as stated above. Patient is known to the ID services your consult on her case back in 2016 when she had MSSA bacteremia. Apparently, the patient was hospitalized earlier this month on 03/05/18 for fluid volume overload. She was noted to have a right ankle wound. Podiatry was consulted. She did have an x-ray of the foot that was negative for osteomyelitis. Wound cultures were positive for MSSA, Escherichia coli, and Proteus. She was discharged home to complete a 14 day course of oral Levaquin. Since then, she has had continued worsening of her right ankle pain with increased redness. Upon arrival to the ER, the patient was afebrile hemodynamically stable. Her white blood cell count was normal. Additional labs revealed findings consistent with her end-stage renal disease. Her ESR was elevated at 79 with a CRP of 18. She had a right ankle x-ray that showed possible early osteomyelitis. Blood cultures were obtained 2 sets. She received vancomycin, Zosyn, and cefepime and was admitted to the hospital for further evaluation. Since admission, the patient has remained afebrile hemodynamically stable. Repeat labs were not completed this morning. Nephrology is consulted to assist with her dialysis management. Podiatry's been consulted to assist with wound management and we are awaiting their recommendations. Repeat wound culture has been ordered. She is scheduled for an MRI of the right ankle later today. Currently, she is on Vanco and Zosyn. According to the nurses notes, the patient developed chest pain, chills, nausea, and dry mouth while receiving IV vancomycin last night. She reported that she is allergic to vancomycin, but it is not listed on her allergy list and the patient has had vancomycin here in the past according to the pharmacy records. We have been asked to evaluate and make further recommendations. During my exam today, the patient endorses a history as stated above. She reports a long-standing ongoing nonhealing ulcer to the lateral aspect of the right ankle. She has received a debridement in the past, but the wound continu es to be nonhealing. She reports that when she woke up yesterday morning, she had severe pain in the right ankle. She states she assessed the wound yesterday morning and it looked the same as it had. When she got back from dialysis, she noticed a small hole in the middle of the ulcer. She reports subjective chills and rigors, but denies fevers. She denies chest pain, shortness of breath, or cough. Denies nausea, vomiting, or diarrhea. Denies abdominal pain. She no longer makes urine due to her ESRD. She denies pain in her back or other extremities. She reports redness and swelling of the right ankle that started yesterday as well. She reports chest pain, chills, rigors, nausea, and dry mouth with administration of Vancomycin last night. She denies oral thrush or new skin lesions. The patient lives at home with her family. She denies tobacco, alcohol, or illicit drug use. She does not work outside the home. She denies any pet or animal exposure. CC: Jermain Nazario MD Past Med Surg Social Fam HX - Past Medical History Attestation: Yes The following information was validated with the patient. Source: patient, old records reviewed, nursing notes reviewed Medical history: arthritis, asthma, CHF, diabetes, dialysis, fibromyalgia, GERD, hyperlipidemia, hypertension, myocardial infarction, renal disease Additional medical history: DVT right foot. ESDR-dialysis [facility] Psychiatric history: anxiety, depression - Past Surgical History Surgical History: , orthopedic, other, other Additional surgical history: d&c. right chest port. right ankle surgery. left FA FISTULA - Social History Smoking Status: Former smoker Smokeless Tobacco Status: No Alcohol use: none Drug use: none Occupational status: unemployed Current living situation: Home, With Family Activity Level: Independent ambulation Recent Out of Country Travel Within the Last 8 Weeks: No Exposure or Possible Exposure to Illness During Travel: No - Family History Father Adopted: No Family Member Ethnicity: Non- Living Status: Hx Family Cardiac Disorders: No Hx Family Respiratory Disorders: Yes Hx Family Cancer: Yes (Lung Ca) Hx Family GI Disorders: No Hx Family Endocrine Disorder: No Hx Family Neuromuscular Disorders: No Hx Family Neurologic Disorders: No Hx Family HEENT Disorders: No Hx Family Autoimmune Disorders: No Mother Adopted: No Family Member Ethnicity: Non- Living Status: Hx Family Cardiac Disorders: Yes (HTN) Hx Family Respiratory Disorders: No Hx Family Cancer: Yes (Lung Ca) Hx Family GI Disorders: No Hx Family Endocrine Disorder: No Hx Family Neuromuscular Disorders: No Hx Family Neurologic Disorders: No Hx Family HEENT Disorders: No Hx Family Autoimmune Disorders: No Infectious Disease-CN:Meds RX: Aspirin Enteric Coated [Aspirin EC] 81 mg PO DAILY 04/08/15 [History] RX: Tizanidine HCl 2 mg PO TID PRN 06/27/16 [History] RX: Ergocalciferol (VITAMIN D2) [Vitamin D2] 50,000 unit PO QTUTH 01/16/17 [History] RX: Calcium Acetate [Phos-LO] 2,001 mg PO TID 02/25/17 [History] RX: Insulin LISPRO [Humalog Kwikpen U-100] 5 unit SQ TID 02/25/17 [History] RX: Renal Vitamin [Renal Caps Softgel] 1 mg PO DAILY 04/10/17 [History] RX: Cholecalciferol (D-3) [Vitamin D] 2,000 unit PO DAILY 12/17/17 [History] RX: Furosemide [Lasix] 80 mg PO TID 12/17/17 [History] RX: Sertraline [Zoloft] 50 mg PO DAILY 12/17/17 [History] RX: Albuterol Sulfate [Proair Hfa] 2 puff IH Q4H PRN #2 inh 12/20/17 [Rx] RX: Multivitamin [One Daily Essential] 1 tab PO DAILY 01/09/18 [History] RX: Simvastatin [Zocor] 40 mg PO HS 01/09/18 [History] RX: Budesonide/Formoterol 160/4.5 [Symbicort 160/4.5] 2 puff IH BIDR 03/05/18 [ History] RX: Fluticasone Propionate Nasal [Flonase] 1 spr NS DAILY 03/05/18 [History] RX: Insulin DETEMIR [Levemir Flextouch] 10 unit SQ BID 03/05/18 [History] RX: Losartan Potassium [Cozaar] 100 mg PO DAILY 03/05/18 [History] RX: Metoprolol [Lopressor] 100 mg PO BID 03/05/18 [History] RX: NIFEdipine [Nifedipine ER] 60 mg PO DAILY 03/05/18 [History] RX: Omeprazole [PriLOSEC] 20 mg PO DAILY 03/05/18 [History] RX: Collagenase Oint [Santyl] 1 appl TP DAILY #2 tube 03/07/18 [Rx] RX: levoFLOXacin [Levaquin] 750 mg PO Q48H #7 tablet 03/07/18 [Rx] Allergy/AdvReac Type Severity Reaction Status Date / Time vancomycin Allergy Intermediate Itching Verified 03/19/18 13:25 amlodipine Allergy See Verified 03/18/18 19:33 Comments Amoxicillin [From Augmentin] Allergy Itching Verified 03/18/18 19:33 clavulanic acid Allergy Itching Verified 03/18/18 19:33 [From Augmentin] pregabalin [From Lyrica] Allergy Swelling Verified 03/18/18 19:33 of Lip/Tongue/Throat CAROLYN Inhibitors AdvReac Palpitation Verified 03/18/18 19:33 s amitriptyline AdvReac feels drunk Verified 03/18/18 19:33 fenofibrate [From Tricor] AdvReac See Verified 03/18/18 19:33 Comments gabapentin [From Neurontin] AdvReac make me Verified 03/18/18 19:33 sick at my stomach All systems: reviewed and no additional remarkable complaints except as stated Exam - Constitutional Vitals: Temp Pulse Resp BP Pulse Ox 98.4 F 73 17 180/88 98 03/19/18 11:12 03/19/18 11:12 03/19/18 11:12 03/19/18 11:12 03/19/18 11:12 General appearance: cooperative, no acute distress, obese - Head Head exam: Present: atraumatic, normal inspection, normocephalic - Eye Eye exam: Present: EOMI, normal appearance, PERRL Pupils: Present: normal accommodation - ENT ENT exam: Present: mucous membranes moist - Neck Neck exam: Present: normal inspection - Respiratory Respiratory exam: Present: CTAB. Absent: rales, respiratory distress, rhonchi, wheezes - Cardiovascular Cardiovascular exam: Present: RRR, +S1, +S2 - GI/Abdominal GI/Abdominal exam: Present: distended (obese), normal bowel sounds, soft. Absent: tenderness - Extremities Exam Extremities exam: Present: pedal edema (1+ RLE), tenderness (right ankle). Absent: normal inspection (Ulceration noted to the right lateral ankle with surrouding erythema and tenderness noted. Wound bed 100% yellow with yellow purulent drainage noted. ) Additional comments: AV fistula noted to the left forearm +/+. - Neurological Exam Neurological exam: Present: alert, oriented X3, no focal deficits - Psychiatric Psychiatric exam: Present: normal affect, normal mood - Skin Skin exam: Present: dry, intact, normal color, warm Infectious Disease CN: Results - Labs CBC & Chem 7: 03/21/18 11:01 03/21/18 10:10 Cultures: Cultures 03/18/18 20:29 Blood Culture - Preliminary Peripheral Venipuncture Culture is incubating and being continuously monitored for growth. Final report to follow. 03/18/18 20:37 Blood Culture - Preliminary Peripheral Venipuncture Culture is incubating and being continuously monitored for growth. Final report to follow. Consult Discharge Plan - Plan Referrals: Suresh Mendoza MD [Primary Care Provider] - - Attending Attestation I examined this patient and my medical decision-making was reviewed with the Resident Physician. I agree with the documented findings, disposition and treatment plan as described except to the extent set forth below. This is an addendum to original report dictated by Rosalee Colby CNP. Please refer to Rosalee's note for full detail. Patient is a 57-year-old woman with extensive past medical history mentioned below including end-stage renal disease on hemodialysis, CHF, CVA, DVT has had a pressure ulcer on her right ankle for years apparently. Patient follows Dr. Winn with wound care. Patient states that couple days prior to admission she had severe pain swelling and redness that happened overnight. She stated something woke her up in the middle of the night before. Patient came in for evaluation. At that time x-ray was negative for osteomyelitis and the cultures grew MSSA, Escherichia coli and Proteus and patient was discharged on levofloxacin to finish a 14 day course. Apparently the redness and swelling and the pain got worse she will she came back to the emergency department for evaluation. Since admission patient had no sepsis criteria. An x-ray of the right ankle showed no ty osseous destruction although there is mild thinning/loss of the cortical white Along the distal fibula which could indicate early osteomyelitis and 10 elevated ESR of 79. Assessment and plan: Diabetic foot ulcer/pressure ulcer - failed outpatient antibiotic treatment with Levaquin for MSSA, Escherichia coli and Proteus. There is concern for osteomyelitis and elevated inflammatory markers. She is high risk for osteomyelitis for chronic wound that is persistent and not healing over years Check MRI of the right ankle Get wound cultures Agree with blood cultures *Broad-spectrum antibiotics DC vancomycin because of her allergic reaction I will start daptomycin dose adjust based on creatinine clearance Check pace CK level Duration of treatment depends on the clinical picture and MRI finding and podiatry's recommendation but likely 6 weeks
--- NOTE | 2018-03-19 12:17 | Podiatry Consult Note ---
Date of Encounter: 03/19/18 Time of Encounter: 10:45 Assessment and Plan (1) Osteomyelitis Current visit: Yes Status: Suspected Chronic right lateral malleolus ulcer measuring 7 x 4 cm. Granulation tissue noted with small areas of eschar noted. Fluctuance noted to lateral collateral ligament area. Right ankle x-ray showed early osteomyelitis 03/05 ESR 28 CRP 10, last evening ESR 79, CRP 18 MRI ordered per primary ID consulted per primary for antibiotic management Qualifiers: Osteomyelitis type: unspecified type Osteomyelitis location: fibula Laterality: right Qualified Code(s): M86.9 - Osteomyelitis, unspecified (2) Diabetic ulcer of ankle Current visit: Yes Status: Chronic Chronic right lateral malleolus ulcer. See above plan (3) Burn Current visit: No Status: Resolved Healing right hallux, first submetatarsal, digits 2 through 4. Keep clean and dry, open to air History of Present Illness HPI: Ms. Frederick is a 57 year old female known to the podiatry clinic. She was recently admitted on 03/04/18 4 right hallux and digits 2 through #4 with monteiro and chronic right lateral malleolus ulcer, chronic in nature. She was to follow in wound care center on Saturday with Dr. Winn, but states she did not have a time for the appointment although she had a date. Patient did not call clinic to confirm or question this. Prior to that visit patient was seen in the office in 2016 for a right malleolus foot ulcer. This has been a recurrent issue since 2014. She normally follows with Dr. Winn, but has canceled last several appointments. Patient has PMH of asthma, HTN, HLD, DM with neuropathy, ESRD and on hemodialysis. Patient reports she is an ex-smoker. Hemoglobin A1c 6.6 on 03/05/18. Does not regularly check blood glucose levels at home. Patient on Levemir and NovoLog at home. Last set of ABIs in November 2015 were normal. Venous Dopplers were completed in June 2016 and were normal. Again, Ms. Frederick is a 57-year-old female. She presented to the ED yesterday with worsening pain and changes to right lateral malleolus ulcer. He reports waking up at 5 AM with sharp shooting pain down her right leg. She reports changing dressing in the morning and then going to dialysis. States after dialysis she was still having pain so she change the dressing again and noticed a dark center/hole in the middle of ulcer. Reports feeling feverish, nausea, and chills. Denies vomiting. Patient states at that time she decided she would come to ED for evaluation. Past Med Surg Social Fam HX - Past Medical History Medical history: arthritis, asthma, CHF, diabetes, dialysis, fibromyalgia, GERD, hyperlipidemia, hypertension, myocardial infarction, renal disease Additional medical history: DVT right foot. ESDR-dialysis [id number] Psychiatric history: anxiety, depression - Past Surgical History Surgical History: , orthopedic, other, other Additional surgical history: d&c. right chest port. right ankle surgery. left FA FISTULA - Social History Smoking Status: Former smoker Smokeless Tobacco Status: No Alcohol use: none Drug use: none - Family History Father Adopted: No Family Member Ethnicity: Non- Living Status: Hx Family Cardiac Disorders: No Hx Family Respiratory Disorders: Yes Hx Family Cancer: Yes (Lung Ca) Hx Family GI Disorders: No Hx Family Endocrine Disorder: No Hx Family Neuromuscular Disorders: No Hx Family Neurologic Disorders: No Hx Family HEENT Disorders: No Hx Family Autoimmune Disorders: No Mother Adopted: No Family Member Ethnicity: Non- Living Status: Hx Family Cardiac Disorders: Yes (HTN) Hx Family Respiratory Disorders: No Hx Family Cancer: Yes (Lung Ca) Hx Family GI Disorders: No Hx Family Endocrine Disorder: No Hx Family Neuromuscular Disorders: No Hx Family Neurologic Disorders: No Hx Family HEENT Disorders: No Hx Family Autoimmune Disorders: No Medications and Allergies RX: Aspirin Enteric Coated [Aspirin EC] 81 mg PO DAILY 04/08/15 [History] RX: Tizanidine HCl 2 mg PO TID PRN 06/27/16 [History] RX: Ergocalciferol (VITAMIN D2) [Vitamin D2] 50,000 unit PO HS 01/16/17 [History] RX: Calcium Acetate [Phos-LO] 2,001 mg PO TID 02/25/17 [History] RX: Insulin LISPRO [Humalog Kwikpen U-100] 5 unit SQ TID 02/25/17 [History] RX: Renal Vitamin [Renal Caps Softgel] 1 mg PO DAILY 04/10/17 [History] RX: Cholecalciferol (D-3) [Vitamin D] 2,000 unit PO DAILY 12/17/17 [History] RX: Furosemide [Lasix] 80 mg PO TID 12/17/17 [History] RX: Sertraline [Zoloft] 50 mg PO DAILY 12/17/17 [History] RX: Albuterol Sulfate [Proair Hfa] 2 puff IH Q4H PRN #2 inh 12/20/17 [Rx] RX: Multivitamin [One Daily Essential] 1 tab PO DAILY 01/09/18 [History] RX: Simvastatin [Zocor] 40 mg PO HS 01/09/18 [History] RX: Budesonide/Formoterol 160/4.5 [Symbicort 160/4.5] 2 puff IH BIDR 03/05/18 [ History] RX: Fluticasone Propionate Nasal [Flonase] 1 spr NS DAILY 03/05/18 [History] RX: Insulin DETEMIR [Levemir Flextouch] 10 unit SQ BID 03/05/18 [History] RX: Losartan Potassium [Cozaar] 100 mg PO DAILY 03/05/18 [History] RX: Metoprolol [Lopressor] 100 mg PO BID 03/05/18 [History] RX: NIFEdipine [Nifedipine ER] 60 mg PO DAILY 03/05/18 [History] RX: Omeprazole [PriLOSEC] 20 mg PO DAILY 03/05/18 [History] RX: Collagenase Oint [Santyl] 1 appl TP DAILY #2 tube 03/07/18 [Rx] RX: levoFLOXacin [Levaquin] 750 mg PO Q48H #7 tablet 03/07/18 [Rx] Allergy/AdvReac Type Severity Reaction Status Date / Time vancomycin Allergy Intermediate Itching Verified 03/19/18 13:25 amlodipine Allergy See Verified 03/18/18 19:33 Comments Amoxicillin [From Augmentin] Allergy Itching Verified 03/18/18 19:33 clavulanic acid Allergy Itching Verified 03/18/18 19:33 [From Augmentin] pregabalin [From Lyrica] Allergy Swelling Verified 03/18/18 19:33 of Lip/Tongue/Throat CAROLYN Inhibitors AdvReac Palpitation Verified 03/18/18 19:33 s amitriptyline AdvReac feels drunk Verified 03/18/18 19:33 fenofibrate [From Tricor] AdvReac See Verified 03/18/18 19:33 Comments gabapentin [From Neurontin] AdvReac make me Verified 03/18/18 19:33 sick at my stomach All Systems Reviewed: The remainder of the systems were reviewed and are negative - Constitutional Constitutional: as per HPI, fever(s) - Cardiovascular Cardiovascular: irregular heart rhythm, leg ulcers, no chest pain, no dyspnea - Respiratory Respiratory: no dyspnea - Musculoskeletal Musculoskeletal: numbness, radiating pain into limb, tingling Physical Exam - Constitutional Vitals: Temp Pulse Resp BP Pulse Ox 98.4 F 73 17 180/88 98 03/19/18 11:12 03/19/18 11:12 03/19/18 11:12 03/19/18 11:12 03/19/18 11:12 Exam: Constitiutional: Alert and oriented x 3. Vascular: 3/4 DP/PT bilaterally, CFT <3 sec to all digits, warm to warm from tibia to toes bilaterally Neurologic: Absent light touch and pinprick test, normal plantar response, Abnormall position sense dorsiflexion/plantar flexion Dermatologic: healing second degree monteiro to right hallux, right 1st submetatarsal, and digits 2-4. Musculoskeletal: 5/5 muscle strength to plantar flexion, dorsiflexion, inversion and eversion right foot, normal tone bilaterally. Results - Labs Result Diagrams: 03/18/18 20:19 03/18/18 20:19 Labs: Abnormal lab results RBC 3.62 M/mcL (3.82-4.97) L 03/18/18 20:19 Hgb 10.5 g/dL (11.5-15.4) L 03/18/18 20:19 Hct 33.6 % (35.3-44.9) L 03/18/18 20:19 MCHC 31.3 g/dL (31.6-35.5) L 03/18/18 20:19 RDW 15.8 % (11.5-14.5) H 03/18/18 20:19 ESR 79 mm/hr (0-15) H 03/18/18 20:20 Carbon Dioxide 30 mEq/L (23-29) H 03/18/18 20:19 BUN 29 mg/dL (6-20) H 03/18/18 20:19 Creatinine 5.61 mg/dL (0.60-1.20) H 03/18/18 20:19 Est GFR ( Amer) 9 (> 60) L 03/18/18 20:19 Est GFR (Non-Af Amer) 8 (> 60) L 03/18/18 20:19 BUN/Creatinine Ratio 5 (6-26) L 03/18/18 20:19 Glucose 186 mg/dL (70-105) H 03/18/18 20:19 Calculated Osmolality 301 (280-300) H 03/18/18 20:19 C-Reactive Protein 18 mg/L (Less than 10) H 03/18/18 20:20 H & H 03/18/18 Range/Units 20:19 Hgb 10.5 L (11.5-15.4) g/dL Hct 33.6 L (35.3-44.9) % All other labs normal. Consult Discharge Plan - Plan Referrals: Suresh Mendoza MD [Primary Care Provider] -
[2018-03-19] MEDS ORDERED: DAPTOmycin 500 MG in 0.9 % Sodium Chloride 100 ML IVPB SCH (15:00)
[2018-03-19] MEDS: Metoprolol 100 MG TABLET PO SCH (19:44)
[2018-03-19] MEDS: Insulin DETEMIR 100 UNIT/ML X5UNITS SQ SCH (21:16)
[2018-03-19] MEDS ORDERED: Aminoglycoside Consult 1 EACH MC ONE (21:37)
[2018-03-20] MEDS: Piperacillin/Tazobactam 3.375 GM in 0.9 % Sodium Chloride Mini Bag 100 ML IVPB SCH ×2 (01:35→14:12)
[2018-03-20] MEDS ORDERED: *HR* Metoprolol 5 MG/5 ML VIAL IVP ONE (02:07)
[2018-03-20 05:49] LABS: Albumin 3.6 g/dL (3.5-5.7); Calcium 8.6 mg/dL (8.6-10.3); Potassium 4.8 mEq/L (3.5-5.1)
[2018-03-20] MEDS ORDERED: 0.9 % Sodium Chloride 250 ML IVC PRN (07:16)
[2018-03-20] MEDS ORDERED: 0.9 % Sodium Chloride 1,000 ML PRIME SCH (07:30)
[2018-03-20] MEDS ORDERED: 0.9 % Sodium Chloride 2,000 ML ONE (08:03)
[2018-03-20] MEDS: NIFEdipine XL (24 HR) 60 MG TAB.ER.24 PO SCH (08:30)
[2018-03-20] MEDS: Insulin LISPRO 300 UNITS/3 ML VIAL SQ SCH ×3 (08:31→17:38)
--- NOTE | 2018-03-20 08:48 | Internal Med Progress Note ---
Hospitalist Progress Note - Encounter Date of Encounter: 03/20/18 Time of Encounter: 08:47 - Subjective Interval History: Patient seen and examined this morning. No acute overnight events. Pain improved. No fever,chills, N/V/D or constipation. No cp,sob,abdominal pain. - Exam Vitals: Temp Pulse Resp BP Pulse Ox 97.8 F 76 14 171/90 96 03/20/18 06:41 03/20/18 03:54 03/20/18 03:54 03/20/18 03:54 03/20/18 03:54 Exam: Constitutional: Vitals as noted. Conversant. No Apparent Distress Obese ENT : Grossly normal hearing. Oropharyngeal exam unremarkable. Moist mucus membranes. No JVD, no cervical lymphadenopathy. no thyromegaly or mass. Respiratory : Clear to auscultation bilaterally. No accessory muscle use, rales, rhonchi or wheezes Cardiovascular : RRR, +S1, +S2. no murmur, gallop, rubs. No chest wall tenderness GI/Abdominal : Soft, Non-tender, Non-distended, normal bowel sounds, soft, no peritoneal signs. no orgenomegaly or mass appreciated. no hernia. Musculoskeletal: no deformity noted. no edema or cyanosis. warm extremities, pulses palpable and symmetrical in UE/LE. no calf tenderness. Neurological: AO X3, CN II-XII grossly intact. Grossly normal motor exam. Decreased sensation on both legs bilaterally and somewhat on both hands. Skin: Ulcer 4x4 cm on Rt lateral maleolus with erythema and warmth and mild fluctuance. Healing monteiro lesion noted on sole of foot . 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 MRI Negative for osteomyelitis but showed possible abscess - ESR of 79 , CRP of 18 on admission - c/w vancomycin and Zosyn. ID following - wound and blood culture NGTD - Podiatry and ID following. - Plan for I&D per podiatry ESRD - Gets dialysis on Saturday. - Currently appears euvolemic - Continue dialysis per nephrology Diabetes - currently well controlled - Continue home Levemir along with sliding scale and Accu-Cheks - Time Spent with Patient Total time spent is greater than 50% in coordination of care (as documented) at patient's floor/unit and/or counseling patient: Internal Medicine: Result - Labs CBC & Chem 7: 03/18/18 20:19 03/20/18 04:34 Labs: BMP 03/20/18 04:34 Sodium 137 Potassium 4.8 Chloride 101 Carbon Dioxide 22 L BUN 41 H Creatinine 7.63 H Glucose 148 H Calcium 8.6 Liver Function 03/20/18 Range/Units 04:34 Albumin 3.6 (3.5-5.7) g/dL - Impressions Impressions Ankle MRI 03/19/18 10:21 IMPRESSION: No evidence for osteomyelitis. Shallow appearing soft tissue ulcer/open wound to the lateral ankle. Curvilinear underlying focal fluid collection may reflect abscess as above. More diffuse subcutaneous edema about the ankle and foot concerning for cellulitis. Nonspecific small to moderate tibiotalar joint effusion. Mild juxta malleolar tendinosis to peroneus longus and brevis tendons. Mild tenosynovitis to medial tendons. Prior remote injuries to lateral collateral ligament complex and deltoid ligament complex. Likely denervation changes to musculature about the ankle and foot. D/ / 03/19/2018 13:49:12 Hernando Summers MD / vanessa Interpreting Provider: Hernando Summers MD Consult Discharge Plan - Plan Referrals: Suresh Mendoza MD [Primary Care Provider] - (3) Diabetes Qualifiers: Diabetes mellitus type: type 2 Diabetes mellitus chcf insulin use: with meterman use Diabetes mellitus complication status: with neurologic complications Diabetes mellitus complication detail: with polyneuropathy Qualified Code(s): E11.42 - Type 2 diabetes mellitus with diabetic polyneuropathy; Z79.4 - meterman (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
--- NOTE | 2018-03-20 10:18 | Nephrology Progress Note ---
Date of Encounter: 03/20/18 Time of Encounter: 10:18 - Assessment and Plan (1) ESRD (end stage renal disease) on dialysis Current Visit: No Status: Chronic HD today Needs renal diet-ordered Continue strict I/Os Avoid nephrotoxins if possible (2) Hypertension Current Visit: No Status: Chronic per primary team Qualifiers: Hypertension type: essential hypertension Qualified Code(s): I10 - Essential (primary) hypertension (3) Diabetic ulcer of ankle Current Visit: Yes Status: Chronic per podiatry team Subjective Principal diagnosis: ESRD, diabetic ulcer of ankle Interval history: Patient seen and examined in dialysis. States she is feeling better. Objective - Vital Signs Vital signs: Vital Signs Temp Pulse Resp BP Pulse Ox 03/20/18 06:41 97.8 F 03/20/18 03:54 97.8 F 76 14 171/90 96 03/20/18 03:38 174/81 03/20/18 03:17 181/82 03/20/18 01:46 77 190/115 03/19/18 23:14 98.3 F 81 14 186/95 95 03/19/18 22:30 16 96 03/19/18 21:19 181/89 03/19/18 19:05 98.7 F 81 15 185/90 96 03/19/18 16:07 98.5 F 81 17 190/99 99 03/19/18 11:12 98.4 F 73 17 180/88 98 03/19/18 10:52 18 99 Intake and Output 03/19/18 03/20/18 03/20/18 23:59 07:59 15:59 Intake Total 600 / 600 100 / 100 Balance 600 / 600 100 / 100 Intake: IV Fluids 200 / 200 100 / 100 Cubicin 500 MG In 0.9 % Sodium 100 / 100 Chloride 100 ML @ 200 mls/hr IVPB Q48H [facility] Rx#:[id number] Zosyn 3.375 GM In 0.9 % Sodium 100 / 100 100 / 100 Chloride (Mini-Bag +) 100 ML @ 25 mls/hr IVPB Q12H [facility] Rx#: [id number] Oral 400 / 400 Other: # Voids 4 # Bowel Movements 0 Blood Glucose* 178 139 - General Appearance General appearance: Present: well-developed, well-nourished, obese EENT: Present: ATNC, mucous membranes moist, hearing intact, vision intact Neck: Present: supple Respiratory: Present: clear Cardiology: Present: no edema, normal S1, normal S2 Dialysis Vascular Access: Arteriovenous Fistula Gastrointestinal: Present: no tenderness, no guarding Integumentary: Present: warm and dry Psychiatric: Present: mood/affect appropriate, cooperative - Lab 03/18/18 20:19 03/20/18 04:34 Most recent lab results Calcium 8.6 mg/dL (8.6-10.3) 03/20/18 04:34 Phosphorus 6.0 mg/dL (2.7-4.5) H 03/20/18 04:34 Consult Discharge Plan - Plan Referrals: Suresh Mendoza MD [Primary Care Provider] -
--- NOTE | 2018-03-20 10:44 | Podiatry Progress Note ---
Date of Encounter: 03/20/18 Time of Encounter: 08:20 - Assessment and Plan (1) Osteomyelitis Current Visit: Yes Status: Ruled-out Chronic right lateral malleolus ulcer measuring 7 x 4 cm. Granulation tissue noted with small areas of eschar noted. Fluctuance noted to lateral collateral ligament area. Dressing changes to be completed by nursing. Place Adaptic over right lateral malleolus, place Silvadene to right foot burn, place Adaptic over right #5 submetatarsal ulcer cover with 4 x 4 dry gauze and Kerlix. Right ankle x-ray showed early osteomyelitis MRI showed no osteomyelitis showed a possible abscess measuring 0.4 x 2.2 cm, cellulitis Plan for I&D tomorrow. NPO after MN. 03/05 ESR 28 CRP 10, 03/18 ESR 79, CRP 18 ID following for antibiotic management Qualifiers: Osteomyelitis type: unspecified type Osteomyelitis location: fibula Laterality: right Qualified Code(s): M86.9 - Osteomyelitis, unspecified (2) Diabetic ulcer of ankle Current Visit: Yes Status: Chronic Chronic right lateral malleolus ulcer. See above plan (3) Burn Current Visit: Yes Status: Resolved Healing right hallux, first submetatarsal, digits [address] Silvadene to wounds, cover with Adaptic, dry gauze, and Kerlix. Keep clean and dry, open to air Subjective Principal diagnosis: ESRD, diabetic ulcer of ankle Interval history: Patient sitting up in bed. Alert oriented 3. Denies any overnight complications. Objective - Vital Signs Vital Signs: Vital Signs Temp Pulse Resp BP Pulse Ox 03/20/18 06:41 97.8 F 03/20/18 03:54 97.8 F 76 14 171/90 96 03/20/18 03:38 174/81 03/20/18 03:17 181/82 03/20/18 01:46 77 190/115 03/19/18 23:14 98.3 F 81 14 186/95 95 03/19/18 22:30 16 96 03/19/18 21:19 181/89 03/19/18 19:05 98.7 F 81 15 185/90 96 03/19/18 16:07 98.5 F 81 17 190/99 99 03/19/18 11:12 98.4 F 73 17 180/88 98 03/19/18 10:52 18 99 Intake and Output 03/19/18 03/20/18 03/20/18 23:59 07:59 15:59 Intake Total 600 / 600 100 / 100 Balance 600 / 600 100 / 100 Intake: IV Fluids 200 / 200 100 / 100 Cubicin 500 MG In 0.9 % Sodium 100 / 100 Chloride 100 ML @ 200 mls/hr IVPB Q48H [facility] Rx#:[id number] Zosyn 3.375 GM In 0.9 % Sodium 100 / 100 100 / 100 Chloride (Mini-Bag +) 100 ML @ 25 mls/hr IVPB Q12H [facility] Rx#: [id number] Oral 400 / 400 Other: # Voids 4 # Bowel Movements 0 Blood Glucose* 178 139 - Exam Exam: Constitiutional: Alert and oriented x 3. Vascular: 3/4 DP/PT bilaterally, CFT <3 sec to all digits, warm to warm from tibia to toes bilaterally Neurologic: Absent light touch and pinprick test, normal plantar response, Abnormal position sense dorsiflexion/plantar flexion Dermatologic: healing second degree monteiro to right hallux, right 1st submetatarsal, and digits 2-4, right lateral malleolus venous ulcer. Fibrinous tissue noted with necrosis to the wound edges. Warm pink and dusky edges with fluctuance noted to the lateral collateral ligament. #5 submetatarsal with healing ulcer noted Musculoskeletal: 5/5 muscle strength to plantar flexion, dorsiflexion, inversion and eversion right foot, normal tone bilaterally. - Lab Result Diagrams: 03/18/18 20:19 03/20/18 04:34 Labs: Abnormal lab results RBC 3.62 M/mcL (3.82-4.97) L 03/18/18 20:19 Hgb 10.5 g/dL (11.5-15.4) L 03/18/18 20:19 Hct 33.6 % (35.3-44.9) L 03/18/18 20:19 MCHC 31.3 g/dL (31.6-35.5) L 03/18/18 20:19 RDW 15.8 % (11.5-14.5) H 03/18/18 20:19 ESR 79 mm/hr (0-15) H 03/18/18 20:20 Carbon Dioxide 22 mEq/L (23-29) L 03/20/18 04:34 BUN 41 mg/dL (6-20) H 03/20/18 04:34 Creatinine 7.63 mg/dL (0.60-1.20) H 03/20/18 04:34 Est GFR ( Amer) 7 (> 60) L 03/20/18 04:34 Est GFR (Non-Af Amer) 5 (> 60) L 03/20/18 04:34 BUN/Creatinine Ratio 5 (6-26) L 03/20/18 04:34 Glucose 148 mg/dL (70-105) H 03/20/18 04:34 POC Glucose 221 mg/dL (70-99) H 03/19/18 16:37 Phosphorus 6.0 mg/dL (2.7-4.5) H 03/20/18 04:34 C-Reactive Protein 18 mg/L (Less than 10) H 03/18/18 20:20 Microbiology, Last 48 Hours 03/18/18 20:29 Blood Culture - Preliminary Peripheral Venipuncture Culture is incubating and being continuously monitored for growth. Final report to follow. 03/18/18 20:37 Blood Culture - Preliminary Peripheral Venipuncture Culture is incubating and being continuously monitored for growth. Final report to follow. Consult Discharge Plan - Plan Referrals: Suresh Mendoza MD [Primary Care Provider] -
--- NOTE | 2018-03-20 11:27 | Infectious Disease Progress No ---
Date of Encounter: 03/20/18 Time of Encounter: 10:40 - Assessment and Plan (1) Ankle abscess Current Visit: Yes Status: Suspected Location: Right ankle. Causative organism: Unclear. Previous wound cultures were positive for MSSA, Proteus, and Escherichia coli. Failed outpatient oral antibiotic therapy. ESR 79, CRP 18. No SIRS criteria noted. Blood cultures drawn 03/18/18 are no growth to date x 2 sets. MRI showed a shallow-appearing soft tissue ulcer/open wound to the right lateral ankle with curvilinear underlying focal fluid collection that may reflect an abscess. Wound culture is pending. Recommendations: - Podiatry consulted. Await recommendations. - Wound care per the Podiatry team. - Continue daptomycin 6 mg/kg IV every 48 hours given on dialysis days only. Baseline CK level 73. Zocor on hold. - Continue Zosyn 3.375 g IV every 12 hours. Dose adjusted for HD status. - Duration of treatment depends on the clinical picture. - Monitor labs and dose-adjust antibiotics for HD status. - Strict glucose control. (2) Osteomyelitis Current Visit: Yes Status: Ruled-out Location: Right lateral ankle. Causative organism unclear, but previous wound culture grew E. coli, Proteus, and MSSA. X-ray of the right ankle showed no ty osseous destruction although there is mild thinning/loss of the cortical white line along the distal fibula which could indicate early osteomyelitis. MRI of the right ankle showed no evidence for osteomyelitis. Qualifiers: Osteomyelitis type: unspecified type Osteomyelitis location: fibula Laterality: right Qualified Code(s): M86.9 - Osteomyelitis, unspecified (3) Diabetic ulcer of ankle Current Visit: Yes Status: Chronic Location: Right lateral ankle. Secondary to previous pressure ulcer. Etiology of non-healing unclear. Podiatry consulted. (4) History of end stage renal disease Current Visit: No Status: Acute Nephrology consulted and following. (5) Diabetes Current Visit: No Status: Chronic Controlled. HgbA1C 6.6%. Management per the primary team. 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 No acute events noted overnight. Patient reports improvement in her right foot and ankle pain. Denies any fevers or chills or rigors. Denies chest pain, shortness of breath, or cough. Denies nausea, vomiting, or constipation. She does report 4-5 loose stools yesterday that she attributes to dialysis. She received Imodium and has not had any stools today. She denies any abdominal pain or urinary complaints. She denies any oral thrush or any skin lesions. Infect Dis PN-Objective Data - Labs CBC & Chem 7: 03/21/18 11:01 03/21/18 10:10 Labs: Laboratory Results - last 24 hr 03/19/18 03/19/18 03/19/18 07:22 15:42 16:37 Sodium Potassium Chloride Carbon Dioxide BUN Creatinine Est GFR ( Amer) Est GFR (Non-Af Amer) BUN/Creatinine Ratio Glucose POC Glucose 166 H 221 H Calculated Osmolality Calcium Phosphorus Creatine Kinase 73 Albumin Random Vancomycin 03/20/18 03/20/18 04:34 04:34 Sodium 137 Potassium 4.8 Chloride 101 Carbon Dioxide 22 L BUN 41 H Creatinine 7.63 H Est GFR ( Amer) 7 L Est GFR (Non-Af Amer) 5 L BUN/Creatinine Ratio 5 L Glucose 148 H POC Glucose Calculated Osmolality 297 Calcium 8.6 Phosphorus 6.0 H Creatine Kinase Albumin 3.6 Random Vancomycin 9 Cultures: Cultures 03/18/18 20:29 Blood Culture - Preliminary Peripheral Venipuncture Culture is incubating and being continuously monitored for growth. Final report to follow. 03/18/18 20:37 Blood Culture - Preliminary Peripheral Venipuncture Culture is incubating and being continuously monitored for growth. Final report to follow. - Impressions Impressions Ankle MRI 03/19/18 10:21 IMPRESSION: No evidence for osteomyelitis. Shallow appearing soft tissue ulcer/open wound to the lateral ankle. Curvilinear underlying focal fluid collection may reflect abscess as above. More diffuse subcutaneous edema about the ankle and foot concerning for cellulitis. Nonspecific small to moderate tibiotalar joint effusion. Mild juxta malleolar tendinosis to peroneus longus and brevis tendons. Mild tenosynovitis to medial tendons. Prior remote injuries to lateral collateral ligament complex and deltoid ligament complex. Likely denervation changes to musculature about the ankle and foot. D/ / 03/19/2018 13:49:12 Hernando Summers MD / vanessa Interpreting Provider: Hernando Summers MD Exam - Constitutional Vitals: Temp Pulse Resp BP Pulse Ox 97.8 F 76 14 171/90 96 03/20/18 06:41 03/20/18 03:54 03/20/18 03:54 03/20/18 03:54 03/20/18 03:54 General appearance: cooperative, morbidly obese, no acute distress - Head Head exam: Present: atraumatic, normal inspection, normocephalic - Eye Eye exam: Present: EOMI, normal appearance, PERRL Pupils: Present: normal accommodation - ENT ENT exam: Present: mucous membranes moist - Neck Neck exam: Present: normal inspection - Respiratory Respiratory exam: Present: CTAB. Absent: rales, respiratory distress, rhonchi, wheezes - Cardiovascular Cardiovascular exam: Present: RRR, +S1, +S2 - GI/Abdominal GI/Abdominal exam: Present: distended (Obese), normal bowel sounds, soft. Absent: tenderness - Extremities Exam Extremities exam: Present: tenderness (Right ankle). Absent: normal inspection (Right foot and ankle dressing is clean, dry, and intact.), pedal edema Additional comments: AV fistula noted to the left forearm that is positive/positive. - Neurological Exam Neurological exam: Present: alert, oriented X3, no focal deficits - Psychiatric Psychiatric exam: Present: normal affect, normal mood - Skin Skin exam: Present: dry, intact, normal color, warm Consult Discharge Plan - Plan Referrals: Suresh Mendoza MD [Primary Care Provider] - - Attending Attestation I examined this patient and my medical decision-making was reviewed with the Resident Physician. I agree with the documented findings, disposition and treatment plan as described except to the extent set forth below.
[2018-03-20] MEDS: Budesonide/Formoterol 160/4.5 1 PUFF INH IH SCH ×2 (12:01→20:46)
[2018-03-20] MEDS: Furosemide 40 MG TABLET PO SCH ×3 (14:10→17:36)
[2018-03-20] MEDS: Aspirin Enteric Coated 81 MG Tablet PO SCH (14:11)
[2018-03-20] MEDS: Renal Vitamin 1 CAP CAPSULE PO SCH (14:11)
[2018-03-20] MEDS: Calcium Acetate 667 MG CAPSULE PO SCH ×3 (14:11→17:36)
[2018-03-20] MEDS: Metoprolol 100 MG TABLET PO SCH ×2 (14:11→19:53)
[2018-03-20] MEDS: Insulin DETEMIR 100 UNIT/ML X5UNITS SQ SCH ×3 (14:12→22:09)
[2018-03-20] MEDS: Silver Sulfadiazine 50 GM TUBE TP SCH (14:13)
[2018-03-20] MEDS: Cholecalciferol (D-3) 1,000 UNIT TABLET PO SCH (14:21)
[2018-03-20] MEDS ORDERED: DAPTOmycin 500 MG in 0.9 % Sodium Chloride 100 ML IVPB SCH (18:00)
--- NOTE | 2018-03-20 19:34 | Anesthesia Evaluation PreOp ---
Addendum entered and electronically signed by Atiya Richardson MD 03/21/18 08:50: Metoprolol 03/21/2018 @ 0755 ECHO 01/10/2018 EV/EV echo with saline Impressions: Normal LV chamber size. Normal LV systolic function, LVEF 60-65%. Mild concentric left ventricular hypertrophy. Moderate left ventricular diastolic dysfunction. Reversible restrictive. Normal right ventricular structure and function. Moderately dilated left atrium. No significant valvular dysfunction. Current saline contrast study is non-diagnostic of interatrial or transpulmonary shunt Normal CVP 10, unable to assess pulmonary artery pressures due to insufficient TR and ND. Left Ventricular Wall Motion: Rest Echo Findings All wall segments showed normal motion. Vital Signs Temp Pulse Resp BP Pulse Ox 03/21/18 07:55 18 99 03/21/18 05:25 97.8 F 70 13 168/93 95 03/20/18 20:46 16 96 03/20/18 15:08 98.2 F 75 16 132/80 97 03/20/18 14:04 98.3 F 18 174/94 03/20/18 13:30 136/65 03/20/18 13:15 141/77 03/20/18 13:00 145/87 03/20/18 12:45 158/97 03/20/18 12:30 157/95 03/20/18 12:15 186/85 03/20/18 12:00 180/86 03/20/18 11:45 184/84 03/20/18 11:30 182/89 03/20/18 11:15 180/87 03/20/18 11:00 176/102 03/20/18 10:45 162/97 03/20/18 10:30 174/109 03/20/18 10:15 152/91 03/20/18 10:00 98.5 F 18 188/107 Intake and Output 03/20/18 03/21/18 03/21/18 23:59 07:59 15:59 Intake Total 100 / 100 100 / 100 Output Total 0 / 0 Balance 100 / 100 100 / 100 Intake: IV Fluids 100 / 100 100 / 100 Zosyn 3.375 GM In 0.9 % Sodium 100 / 100 100 / 100 Chloride (Mini-Bag +) 100 ML @ 25 mls/hr IVPB Q12H [facility] Rx#: [id number] Output: Urine 0 / 0 Other: Weight 96.1 kg Blood Glucose* 197 125 Patient Weight 03/21/18 23:59 Weight 96.1 kg Laboratory Results Impressions Ankle X-Ray 03/18/18 20:20 IMPRESSION: Large lateral ankle soft tissue ulcer. No ty osseous destruction although there is mild thinning/loss of the cortical white line along the distal fibula which could indicate early osteomyelitis. Contrast-enhanced MRI could clarify. Chronic deformity of the little toe. D/ / Carter Nascimento / Carter Nascimento Interpreting Provider: Carter Nascimento Ankle MRI 03/19/18 10:21 IMPRESSION: No evidence for osteomyelitis. Shallow appearing soft tissue ulcer/open wound to the lateral ankle. Curvilinear underlying focal fluid collection may reflect abscess as above. More diffuse subcutaneous edema about the ankle and foot concerning for cellulitis. Nonspecific small to moderate tibiotalar joint effusion. Mild juxta malleolar tendinosis to peroneus longus and brevis tendons. Mild tenosynovitis to medial tendons. Prior remote injuries to lateral collateral ligament complex and deltoid ligament complex. Likely denervation changes to musculature about the ankle and foot. 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 (Diabetic Neuropathy) Other Medical History: Diabetes Type II, Other (Obese) Anesthesia History: No Prior Anesthetic Complications Alcohol Use: none Drug use: none Medications and Allergies Aspirin Enteric Coated [Aspirin EC] 81 mg PO DAILY 04/08/15 [History] Tizanidine HCl 2 mg PO TID PRN 06/27/16 [History] Ergocalciferol (VITAMIN D2) [Vitamin D2] 50,000 unit PO QTUTH 01/16/17 [History] Calcium Acetate [Phos-LO] 2,001 mg PO TID 02/25/17 [History] Insulin LISPRO [Humalog Kwikpen U-100] 5 unit SQ TID 02/25/17 [History] Renal Vitamin [Renal Caps Softgel] 1 mg PO DAILY 04/10/17 [History] Cholecalciferol (D-3) [Vitamin D] 2,000 unit PO DAILY 12/17/17 [History] Furosemide [Lasix] 80 mg PO TID 12/17/17 [History] Sertraline [Zoloft] 50 mg PO DAILY 12/17/17 [History] Albuterol Sulfate [Proair Hfa] 2 puff IH Q4H PRN #2 inh 12/20/17 [Rx] Multivitamin [One Daily Essential] 1 tab PO DAILY 01/09/18 [History] Simvastatin [Zocor] 40 mg PO HS 01/09/18 [History] Budesonide/Formoterol 160/4.5 [Symbicort 160/4.5] 2 puff IH BIDR 03/05/18 [History] Fluticasone Propionate Nasal [Flonase] 1 spr NS DAILY 03/05/18 [History] Insulin DETEMIR [Levemir Flextouch] 10 unit SQ BID 03/05/18 [History] Losartan Potassium [Cozaar] 100 mg PO DAILY 03/05/18 [History] Metoprolol [Lopressor] 100 mg PO BID 03/05/18 [History] NIFEdipine [Nifedipine ER] 60 mg PO DAILY 03/05/18 [History] Omeprazole [PriLOSEC] 20 mg PO DAILY 03/05/18 [History] Collagenase Oint [Santyl] 1 appl TP DAILY #2 tube 03/07/18 [Rx] levoFLOXacin [Levaquin] 750 mg PO Q48H #7 tablet 03/07/18 [Rx] Allergy/AdvReac Type Severity Reaction Status Date / Time vancomycin Allergy Intermediate Itching Verified 03/19/18 13:25 amlodipine Allergy See Verified 03/18/18 19:33 Comments Amoxicillin [From Augmentin] Allergy Itching Verified 03/18/18 19:33 clavulanic acid Allergy Itching Verified 03/18/18 19:33 [From Augmentin] pregabalin [From Lyrica] Allergy Swelling Verified 03/18/18 19:33 of Lip/Tongue/Throat CAROLYN Inhibitors AdvReac Palpitation Verified 03/18/18 19:33 s amitriptyline AdvReac feels drunk Verified 03/18/18 19:33 fenofibrate [From Tricor] AdvReac See Verified 03/18/18 19:33 Comments gabapentin [From Neurontin] AdvReac make me Verified 03/18/18 19:33 sick at my stomach - Meds/Allergy Pre-op Review Medications Reviewed: Yes Allergies Reviewed: Yes Beta Blockers on Current Med List: Yes (Metoprolol 1400 11-1) Anesthesia Results - Labs 03/18/18 20:19 03/20/18 04:34 - Imaging EKG: report reviewed (SR) Additional studies: ECHO 2018 EF 60%, mild diastolic dysfunction Anesthesia Exam O2 Sat O2 Sat by Pulse Oximetry 97 O2 Sat by Pulse Oximetry 96 O2 Sat by Pulse Oximetry 95 O2 Sat by Pulse Oximetry 96 Vital Signs Temp Pulse Resp BP Pulse Ox 97.6 F 78 16 144/79 98 03/18/18 19:27 03/18/18 19:27 03/18/18 19:27 03/18/18 19:27 03/18/18 19:27 Height: 5'3 Weight: 212 lbs NPO (# of Hours): MN Pain Scale: 0 - HEENT Pupil (Motor): Pupils equal, EOMI Mallampati: III Teeth: Normal Oral Opening: Less than or equal to 3 - DIRECTOR OF SOFTWARE DEVELOPMENT LOC: Oriented DIRECTOR OF SOFTWARE DEVELOPMENT Motor: Normal RUE, Normal LUE, Normal RLE, Normal LLE, Normal Face DIRECTOR OF SOFTWARE DEVELOPMENT Sensory: Normal: RUE, LUE, LLE, Face, Deficit: RLE (Neuropathic) - Cardiac Rhythm: Regular Murmur: None JVD: No Carotid Bruit: No - Pulmonary Breath Sounds: bilateral Clear Respiratory Effort: Symmetrical Anesthesia Assess/Plan ASA Score: 3 (HTN ESRD Obese) Level of consciousness: Cooperative Anesthetic Plan: MAC Monitoring Plan: Standard Monitors Recovery Plan: Other (Patient prefers MAC, but also discussed possible GA if needed)
[2018-03-20] MEDS: Acetaminophen 325 MG TABLET PO PRN (22:09)
[2018-03-21] MEDS: Piperacillin/Tazobactam 3.375 GM in 0.9 % Sodium Chloride Mini Bag 100 ML IVPB SCH ×2 (02:10→14:00)
[2018-03-21] MEDS: Aspirin Enteric Coated 81 MG Tablet PO SCH (07:54)
[2018-03-21] MEDS: Cholecalciferol (D-3) 1,000 UNIT TABLET PO SCH (07:54)
[2018-03-21] MEDS: Furosemide 40 MG TABLET PO SCH ×3 (07:54→17:24)
[2018-03-21] MEDS: Calcium Acetate 667 MG CAPSULE PO SCH ×3 (07:54→17:24)
[2018-03-21] MEDS: Renal Vitamin 1 CAP CAPSULE PO SCH (07:54)
[2018-03-21] MEDS: NIFEdipine XL (24 HR) 60 MG TAB.ER.24 PO SCH (07:54)
[2018-03-21] MEDS: Budesonide/Formoterol 160/4.5 1 PUFF INH IH SCH ×2 (07:55→20:02)
[2018-03-21] MEDS: Insulin DETEMIR 100 UNIT/ML X5UNITS SQ SCH ×2 (07:55→21:22)
[2018-03-21] MEDS: Insulin LISPRO 300 UNITS/3 ML VIAL SQ SCH ×3 (07:55→17:25)
[2018-03-21] MEDS: Metoprolol 100 MG TABLET PO SCH ×2 (07:55→19:38)
[2018-03-21] MEDS: Silver Sulfadiazine 50 GM TUBE TP SCH (08:07)
[2018-03-21] MEDS ORDERED: Propofol 500 MG/50 ML INFUS..BTL ONE (08:07)
[2018-03-21] MEDS ORDERED: *HR* FentaNYL (PF) 100 MCG/2 ML VIAL ONE (08:20)
[2018-03-21] MEDS ORDERED: Lidocaine -MPF 2% 2 ML VIAL ONE (08:20)
[2018-03-21] MEDS ORDERED: Ondansetron 4 MG/2 ML VIAL ONE (08:28)
[2018-03-21] MEDS ORDERED: Dexamethasone 4 MG/ML VIAL ONE (08:28)
--- NOTE | 2018-03-21 08:40 | Operative Note ---
Date of procedure: 03/21/18 Pre-op diagnosis: right ankle abscess, chronic ankle wound Post-op diagnosis: same Procedure: Incision and drainage of right ankle Excisional debridemetn of wound Biopsy of right ankle wound Implants: none Complications: none Anesthesia: MAC, IV sedation Local Anesthetics: 1% Lidocaine HCL SubQ (cc) Surgeon: Santhosh Marquez Was there an ophthalmology assistant present: No Estimated blood loss (cc): 25 Specimen: right ankle ulcer-path, culture-right ankle wound Condition: stable Disposition: PACU Procedure in Detail: Indications: 57-year-old diabetic female with A1c in the 6% range per patient on dialysis admitted with chronic right ankle ulceration which had erythema which had resolved with antibiotics. MRI was done showing fluid collection in the right lateral ankle subcutaneous tissue. MRI was not concerning for osteomyelitis of the fibula. Patient has had this chronic wound for more than 10 years. wound lateral ankle measures 3cmx3.5mx0.3cm, plantar lateral foot wound 0.5cmx0.5cmx0.3cm. Nature of the above procedures, risks versus benefits potential competitions comes once his of surgery and her condition discussed at length. Patient understood that she could require more surgery. She also had it explained to her that the longer wound is open the greater the chance she has for infection which could cause her to lose her leg. All of her questions were answered and informed percent was signed patient taken operating room placed on operating room table in the supine position. Right lower extremity scrubbed prepped and draped in the usual sterile fashion. 7 mL of 1% lidocaine plain was injected into the patient's right ankle. No tourniquet was utilized during the procedure. The following procedures then began. Incision and drainage of right ankle, biopsy of right ankle ulcer. Attention was directed to the lateral aspect of the patient's right ankle #15 blade used to make an incision through the ulceration into the subcutaneous tissue. There was serous fluid expelled from underneath the ulceration. There did not appear to be purulent drainage. Cultures of the area were taken and sent to microbiology. The pulse lavage was used with vancomycin to irrigate the area thoroughly. Tissue appeared healthy underneath the ulceration. Tissue layers appeared intact and the site did not probe to bone. A #15 blade was used to incise the wound and remove a full thickness portion which was sent to microbiology. Upon reinspection of the wound area, no devitalized tissue was present underneath the wound. The wound did have a fibro-granular base and the next procedure was then performed. Excisional debridement of ulcer right ankle and plantar lateral foot. The [employer]one[employer] debridement wand was utilized to remove fibrotic tissue into subcutaneous tissue until the base of both the right lateral ankle ulceration plantar lateral foot ulcerations were completely granular. Adequate hemostasis was felt to be present. With no purulence expressed in the wound bed having healthy viable tissue remaining, and absorbable suture was used to reapproximate the tissue which had been cut to drain the fluid under the the ulceration site. No fluid could be expressed from the site prior to closure. The infusion to obtain the patient's blood and made it into PRP which was applied to the wound beds and covered with Adaptic, 4 x 4 gauze, Kerlix and an Terrence wrap. Patient tolerated the anesthesia and the procedure well escorted the recovery room with vital signs stable and vascular status intact to the right foot digits. She will return to floor where she will continue antibiotics.
--- NOTE | 2018-03-21 08:43 | Event Note ---
Date of Encounter: 03/21/18 Time of Encounter: 08:38 Nephrology Chart Review/Update She completed HD yesterday, so the next HD would be planned for tomorrow (Saturday). Thank you
[2018-03-21] MEDS ORDERED: Acetaminophen IV 1,000 MG/100 ML INFUS..BTL ONE (08:50)
--- NOTE | 2018-03-21 08:50 | Podiatry Progress Note ---
Date of Encounter: 03/21/18 Time of Encounter: 07:00 - Assessment and Plan (1) Abscess of bursa of right ankle Current Visit: Yes Status: Acute I had a thorough review with the patient regarding her condition, my findings, and her treatment options. We discussed surgery versus no surgery and a combination of surgery and antibiotics. Patient is going to proceed with surgical intervention incision and drainage of abscess and excisional debridement of wound. Also discussed and will perform biopsy of wound with its chronicity. Nature of the procedure, risks versus benefits potential complications consequences of surgery and her condition discussed at length. No guarantees made as to the outcome of any procedure. Discussed anytime she has an open wound she could get an infection and especially with her comorbidities she could lose her leg. She understood she would still have a wound to heal despite having surgery. It was made clear that she could require return trips to the operating room for this condition. All of her questions were answered and informed consent was signed. Patient has been NPO. will bring to OR. Subjective Principal diagnosis: ESRD, diabetic ulcer of ankle Interval history: 57 year old diabetic female who is ESRD on dialysis [facility] admitted with worsening right ankle ulceration and MRI which showed abscess. Patient says the ulceration has been present since 2004 or 2005. She says it has healed and then opened up again. She sees Dr. Winn in the wound care center infrequently. She says she takes care of it alot at home on her own. Podiatry consulted for evaluation. Objective - Vital Signs Vital Signs: Vital Signs Temp Pulse Resp BP Pulse Ox 03/21/18 07:55 18 99 03/21/18 05:25 97.8 F 70 13 168/93 95 03/20/18 20:46 16 96 03/20/18 15:08 98.2 F 75 16 132/80 97 03/20/18 14:04 98.3 F 18 174/94 03/20/18 13:30 136/65 03/20/18 13:15 141/77 03/20/18 13:00 145/87 03/20/18 12:45 158/97 03/20/18 12:30 157/95 03/20/18 12:15 186/85 03/20/18 12:00 180/86 03/20/18 11:45 184/84 03/20/18 11:30 182/89 03/20/18 11:15 180/87 03/20/18 11:00 176/102 03/20/18 10:45 162/97 03/20/18 10:30 174/109 03/20/18 10:15 152/91 03/20/18 10:00 98.5 F 18 188/107 Intake and Output 03/20/18 03/21/18 03/21/18 23:59 07:59 15:59 Intake Total 100 / 100 100 / 100 Output Total 0 / 0 Balance 100 / 100 100 / 100 Intake: IV Fluids 100 / 100 100 / 100 Zosyn 3.375 GM In 0.9 % Sodium 100 / 100 100 / 100 Chloride (Mini-Bag +) 100 ML @ 25 mls/hr IVPB Q12H [facility] Rx#: [id number] Output: Urine 0 / 0 Other: Weight 96.1 kg Blood Glucose* 197 125 Patient Weight 03/21/18 23:59 Weight 96.1 kg - Exam Exam: ulceration right lateral ankle. mild surrounding erythema. some fluctuance under the ulceration site. CFT intact to digits of the right foot. mild to moderate edema of the ankle. absent protective sensation. MRI-lateral ankle abscess - Lab Result Diagrams: 03/18/18 20:19 03/20/18 04:34 Labs: Abnormal lab results RBC 3.62 M/mcL (3.82-4.97) L 03/18/18 20:19 Hgb 10.5 g/dL (11.5-15.4) L 03/18/18 20:19 Hct 33.6 % (35.3-44.9) L 03/18/18 20:19 MCHC 31.3 g/dL (31.6-35.5) L 03/18/18 20:19 RDW 15.8 % (11.5-14.5) H 03/18/18 20:19 ESR 79 mm/hr (0-15) H 03/18/18 20:20 Carbon Dioxide 22 mEq/L (23-29) L 03/20/18 04:34 BUN 41 mg/dL (6-20) H 03/20/18 04:34 Creatinine 7.63 mg/dL (0.60-1.20) H 03/20/18 04:34 Est GFR ( Amer) 7 (> 60) L 03/20/18 04:34 Est GFR (Non-Af Amer) 5 (> 60) L 03/20/18 04:34 BUN/Creatinine Ratio 5 (6-26) L 03/20/18 04:34 Glucose 148 mg/dL (70-105) H 03/20/18 04:34 POC Glucose 125 mg/dL (70-99) H 03/21/18 06:19 Phosphorus 6.0 mg/dL (2.7-4.5) H 03/20/18 04:34 C-Reactive Protein 18 mg/L (Less than 10) H 03/18/18 20:20 Microbiology, Last 48 Hours 03/19/18 12:10 Wound Culture - Preliminary Right Ankle No growth. Consult Discharge Plan - Plan Referrals: Suresh Mendoza MD [Primary Care Provider] -
[2018-03-21] MEDS ORDERED: Bupivacaine/EPI 1:200k 0.25%PF 30 ML VIAL ONE (09:01)
[2018-03-21] MEDS ORDERED: Vancomycin 1,000 MG, 0.9 % Sodium Chloride 1,000 ML IR ONE ×2 (09:05→10:34)
[2018-03-21] MEDS ORDERED: *HR* Metoprolol 5 MG/5 ML VIAL IVP ONE (09:21)
--- NOTE | 2018-03-21 09:49 | Infectious Disease Progress No ---
Date of Encounter: 03/21/18 Time of Encounter: 08:25 - Assessment and Plan (1) Ankle abscess Current Visit: Yes Status: Suspected Location: Right ankle. Causative organism: Unclear. Previous wound cultures were positive for MSSA, Proteus, and Escherichia coli. Failed outpatient oral antibiotic therapy. ESR 79, CRP 18. No SIRS criteria noted. Blood cultures drawn 03/18/18 are no growth to date x 2 sets. MRI showed a shallow-appearing soft tissue ulcer/open wound to the right lateral ankle with curvilinear underlying focal fluid collection that may reflect an abscess. Wound culture is no growth. Recommendations: - Podiatry consulted. Planning operative I & D today. - Wound care per the Podiatry team. - Continue daptomycin 6 mg/kg IV every 48 hours given on dialysis days only. Baseline CK level 73. Zocor on hold. - Continue Zosyn 3.375 g IV every 12 hours. Dose adjusted for HD status. - Duration of treatment depends on the clinical picture. - Monitor labs and dose-adjust antibiotics for HD status. - Strict glucose control. - Check C. diff. - Empiric C. diff precautions until ruled out. - Start Probiotics. (2) Osteomyelitis Current Visit: Yes Status: Ruled-out Location: Right lateral ankle. Causative organism unclear, but previous wound culture grew E. coli, Proteus, and MSSA. X-ray of the right ankle showed no ty osseous destruction although there is mild thinning/loss of the cortical white line along the distal fibula which could indicate early osteomyelitis. MRI of the right ankle showed no evidence for osteomyelitis. Qualifiers: Osteomyelitis type: unspecified type Osteomyelitis location: fibula Laterality: right Qualified Code(s): M86.9 - Osteomyelitis, unspecified (3) Diabetic ulcer of ankle Current Visit: Yes Status: Chronic Location: Right lateral ankle. Secondary to previous pressure ulcer. Etiology of non-healing unclear. Podiatry consulted. (4) History of end stage renal disease Current Visit: No Status: Acute Nephrology consulted and following. (5) Diabetes Current Visit: No Status: Chronic Controlled. HgbA1C 6.6%. Management per the primary team. 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 Check C. diff. Start probiotics. Qualifiers: Diarrhea type: unspecified type Qualified Code(s): R19.7 - Diarrhea, unspecified - Subjective Interval history: Patient seen and examined. No acute events noted overnight. Patient reports improvement in her right foot and ankle pain. Denies any fevers or chills or rigors. Denies chest pain, shortness of breath, or cough. Denies nausea, vomiting, or constipation. She does report 6 loose stools yesterday and two so far this morning. . She denies any abdominal pain or urinary complaints. She denies any oral thrush or any skin lesions. Infect Dis PN-Objective Data - Labs CBC & Chem 7: 03/21/18 11:01 03/21/18 10:10 Labs: Laboratory Results - last 24 hr 03/19/18 03/19/18 03/20/18 11:12 20:28 01:43 POC Glucose 118 H 178 H 197 H 03/20/18 03/20/18 03/20/18 07:19 11:07 16:07 POC Glucose 139 H 186 H 232 H 03/20/18 03/21/18 21:21 06:19 POC Glucose 197 H 125 H Cultures: Cultures 03/19/18 12:10 Wound Culture - Preliminary Right Ankle No growth. 03/18/18 20:29 Blood Culture - Preliminary Peripheral Venipuncture Culture is incubating and being continuously monitored for growth. Final report to follow. 03/18/18 20:37 Blood Culture - Preliminary Peripheral Venipuncture Culture is incubating and being continuously monitored for growth. Final report to follow. Exam - Constitutional Vitals: Temp Pulse Resp BP Pulse Ox 97.8 F 70 18 168/93 99 03/21/18 05:25 03/21/18 05:25 03/21/18 07:55 03/21/18 05:25 03/21/18 07:55 General appearance: cooperative, no acute distress, obese - Head Head exam: Present: atraumatic, normal inspection, normocephalic - Eye Eye exam: Present: EOMI, normal appearance, PERRL Pupils: Present: normal accommodation - ENT ENT exam: Present: mucous membranes moist - Neck Neck exam: Present: normal inspection - Respiratory Respiratory exam: Present: CTAB. Absent: rales, respiratory distress, rhonchi, wheezes - Cardiovascular Cardiovascular exam: Present: RRR, +S1, +S2 - GI/Abdominal GI/Abdominal exam: Present: distended (obese), normal bowel sounds, soft. Absent: tenderness - Extremities Exam Extremities exam: Present: tenderness (right ankle.). Absent: normal inspection (Right foot/ankle dressing noted with scant serous yellow drainage noted. ), pedal edema - Neurological Exam Neurological exam: Present: alert, oriented X3, no focal deficits - Psychiatric Psychiatric exam: Present: normal affect, normal mood - Skin Skin exam: Present: dry, intact, normal color, warm Consult Discharge Plan - Plan Referrals: Suresh Mendoza MD [Primary Care Provider] - - Attending Attestation I examined this patient and my medical decision-making was reviewed with the Resident Physician. I agree with the documented findings, disposition and treatment plan as described except to the extent set forth below.
[2018-03-21] MEDS ORDERED: Lactobacillus 1 EACH CAP.SPRINK PO SCH (10:00)
[2018-03-21] MEDS ORDERED: *HR* Dextrose 50 % in Water (Syg) 50 ML SYRINGE IVP PRN (10:34)
[2018-03-21] MEDS ORDERED: Naloxone 0.4 MG/ML INJ IVP PRN (10:34)
[2018-03-21] MEDS ORDERED: tiZANidine 4 MG TABLET PO PRN (10:34)
[2018-03-21] MEDS ORDERED: Acetaminophen 325 MG TABLET PO PRN (10:34)
[2018-03-21] MEDS ORDERED: D5% in Water 1,000 ML IVC PRN (10:34)
[2018-03-21] MEDS ORDERED: Dextrose Gel 15 GM/37.5 ML TUBE PO PRN ×2 (10:34)
[2018-03-21 10:54] LABS: Calcium 9.2 mg/dL (8.6-10.3); Potassium 5.2 mEq/L (3.5-5.1)
[2018-03-21 11:19] LABS: Basophils # 0.1 K/mcL (0.0-0.2); Basophils % 0.6 %; Eosinophils # 0.2 K/mcL (0.0-0.6); Eosinophils % 2.9 %; Hematocrit 36.1 % (35.3-44.9); Hemoglobin 11.4 g/dL (11.5-15.4); Immature Granulocytes % 0.8 % (0-4); Lymphocytes % 25.1 %; Mean Corpuscular HGB Conc 31.6 g/dL (31.6-35.5); Mean Corpuscular Hemoglobin 29.2 pg (28.0-33.3); Monocytes # 0.7 K/mcL (0.0-1.3); Monocytes % 8.4 %; Platelet Count 214 K/mcL (140-400); Red Blood Count 3.91 M/mcL (3.82-4.97); Red Cell Distribution Width 15.3 % (11.5-14.5); Segmented Neutrophils % 62.2 %
[2018-03-21 11:21] LABS: Mean Corpuscular Volume 92.3 fL (83.0-100.0)
--- NOTE | 2018-03-21 12:29 | Internal Med Progress Note ---
Hospitalist Progress Note - Encounter Date of Encounter: 03/21/18 Time of Encounter: 12:24 - Subjective Interval History: Patient seen and examined this morning. No acute overnight events. seen after OR. Complains of - Exam Vitals: Temp Pulse Resp BP Pulse Ox 98.0 F 73 18 163/83 99 03/21/18 10:13 03/21/18 10:52 03/21/18 10:13 03/21/18 10:52 03/21/18 10:13 Exam: Constitutional: Vitals as noted. Conversant. No Apparent Distress Obese ENT : Grossly normal hearing. Oropharyngeal exam unremarkable. Moist mucus membranes. No JVD, no cervical lymphadenopathy. no thyromegaly or mass. Respiratory : Clear to auscultation bilaterally. No accessory muscle use, rales, rhonchi or wheezes Cardiovascular : RRR, +S1, +S2. no murmur, gallop, rubs. No chest wall tenderness GI/Abdominal : Soft, Non-tender, Non-distended, normal bowel sounds, soft, no peritoneal signs. no orgenomegaly or mass appreciated. no hernia. Musculoskeletal: no deformity noted. no edema or cyanosis. warm extremities, pulses palpable and symmetrical in UE/LE. no calf tenderness. Neurological: AO X3, CN II-XII grossly intact. Grossly normal motor exam. Decreased sensation on both legs bilaterally and somewhat on both hands. Skin: Dressing on Rt foot. Mildly soaked with blood on lateral aspect. . 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 MRI Negative for osteomyelitis but showed possible abscess - ESR of 79 , CRP of 18 on admission - wound and blood culture NGTD - Podiatry and ID following. - Had II&D right ankle, Excisional debridemet and Biopsy - c/w Daptomycin and Zosyn. ID following ESRD - Gets dialysis on Saturday. - Currently appears euvolemic - Continue dialysis per nephrology Diabetes - currently well controlled - Continue home Levemir along with sliding scale and Accu-Cheks HTN - occasional high reading - c/w losartan, metoprolol - IV prn labetalol for sbp>180 Hyperkalemia - On HD - c/w tele - Time Spent with Patient Total time spent is greater than 50% in coordination of care (as documented) at patient's floor/unit and/or counseling patient: Internal Medicine: Result - Labs CBC & Chem 7: 03/21/18 11:01 03/21/18 10:10 Labs: Short CBC 03/21/18 Range/Units 11:01 WBC 8.0 (4.3-11.1) K/mcL Hgb 11.4 L (11.5-15.4) g/dL Hct 36.1 (35.3-44.9) % Plt Count 214 (140-400) K/mcL Neutrophils # 5.0 (1.6-8.9) K/mcL BMP 03/21/18 10:10 Sodium 137 Potassium 5.2 H Chloride 101 Carbon Dioxide 22 L BUN 30 H Creatinine 6.46 H Glucose 120 H Calcium 9.2 Consult Discharge Plan - Plan Referrals: Suresh Mendoza MD [Primary Care Provider] - (3) Diabetes Qualifiers: Diabetes mellitus type: type 2 Diabetes mellitus track repair worker insulin use: with track repair worker use Diabetes mellitus complication status: with neurologic complications Diabetes mellitus complication detail: with polyneuropathy Qualified Code(s): E11.42 - Type 2 diabetes mellitus with diabetic polyneuropathy; Z79.4 - nurse discharge (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
[2018-03-21] MEDS ORDERED: *HR* Labetalol 20 MG/4 ML SYRINGE IVP PRN (12:39)
[2018-03-21] MEDS ORDERED: traMADol 50 MG TABLET PO ONE (22:42)
[2018-03-22] MEDS: Piperacillin/Tazobactam 3.375 GM in 0.9 % Sodium Chloride Mini Bag 100 ML IVPB SCH ×2 (01:37→14:06)
[2018-03-22 04:35] LABS: Potassium 5.2 mEq/L (3.5-5.1)
[2018-03-22] MEDS ORDERED: 0.9 % Sodium Chloride 250 ML IVC PRN (04:35)
[2018-03-22] MEDS ORDERED: 0.9 % Sodium Chloride 1,000 ML ONE (07:18)
--- NOTE | 2018-03-22 07:46 | Nephrology Progress Note ---
Date of Encounter: 03/22/18 Time of Encounter: 09:00 - Assessment and Plan (1) ESRD (end stage renal disease) on dialysis Current Visit: No Status: Chronic I reviewed her labs, vitals, med list in detail (her labs demonstrated rising azotemia as would be expected in such a complex/high risk pt who is known to be ESRD), and using complex MDM and E/M, I placed dialysis orders using [employer] work order clerk earlier today for dialysis with a low K+ bath to address the hyperkalemia, to provide clearance and to provide UF for her edema. (2) Hypertension Current Visit: No Status: Chronic Continue current antihypertensive Rx Qualifiers: Hypertension type: essential hypertension Qualified Code(s): I10 - Essential (primary) hypertension (3) Peripheral edema Current Visit: Yes Status: Acute Acute on chronic: See above regarding fluid removal today (Saturday) with dialysis. (4) Hyperkalemia Current Visit: No Status: Acute See above (5) Hyperphosphatemia Current Visit: No Status: Chronic Chronic: phos binders to continue. (6) Anemia in chronic illness Current Visit: No Status: Chronic Anemia of CKD stage V on HD: goal Hgb is 10-11. Will monitor. (7) Diabetic ulcer of ankle Current Visit: Yes Status: Chronic Appreciate podiatry s/p surgery during this admission. Subjective Principal diagnosis: ESRD, diabetic ulcer of ankle Interval history: The patient was seen and examined while on hemodialysis. She reported having issues with larger needles recently during previous dialysis treatment as an outpatient. She did not affirm nausea, vomiting, cramping. Objective - Vital Signs Vital signs: Vital Signs Temp Pulse Resp BP Pulse Ox 03/22/18 05:07 98.3 F 71 11 157/74 97 03/22/18 00:28 97.9 F 70 11 131/68 99 03/21/18 20:04 16 99 03/21/18 19:10 98.5 F 76 10 153/81 99 03/21/18 13:43 97.3 F L 69 16 165/66 94 03/21/18 10:52 73 163/83 03/21/18 10:13 98.0 F 65 18 181/94 99 03/21/18 07:55 18 99 Intake and Output 03/21/18 03/21/18 03/22/18 15:59 23:59 07:59 Intake Total 240 / 240 340 / 340 340 / 340 Output Total 0 / 0 Balance 240 / 240 340 / 340 340 / 340 Intake: IV Fluids 100 / 100 100 / 100 Zosyn 3.375 GM In 0.9 % Sodium 100 / 100 100 / 100 Chloride (Mini-Bag +) 100 ML @ 25 mls/hr IVPB Q12H [facility] Rx#: [id number] Oral 240 / 240 240 / 240 240 / 240 Output: Urine 0 / 0 Other: Meal Lunch Dinner Percent of Meal Consumed 25% 100% # Voids 2 # Bowel Movements 0 Weight 96.1 kg Blood Glucose* 143 199 Patient Weight 03/22/18 23:59 Weight 96.1 kg - General Appearance General appearance: Present: well-developed, well-nourished, appears started age, obese EENT: Present: ATNC, PERRL, mucous membranes moist Neck: Present: supple Respiratory: Present: clear Cardiology: Present: edema (Nonpitting, mostly subcutaneous adiposity of the ankles), regular rate, regular rhythm, normal S2 Dialysis Vascular Access: Arteriovenous Fistula (Left arm) thrill: Yes bruit: Yes Gastrointestinal: Present: normoactive bowel sounds, no tenderness, no guarding Additional Comments: Numerous diffuse scabs Musculoskeletal: Present: deformities (Several prior amputations), no erythema Psychiatric: Present: mood/affect appropriate, cooperative - Lab 03/21/18 11:01 03/22/18 03:38 Most recent lab results Calcium 9.0 mg/dL (8.6-10.3) 03/22/18 03:38 Phosphorus 6.0 mg/dL (2.7-4.5) H 03/20/18 04:34 Consult Discharge Plan - Plan Referrals: Suresh Mendoza MD [Primary Care Provider] -
[2018-03-22] MEDS: Renal Vitamin 1 CAP CAPSULE PO SCH (08:37)
[2018-03-22] MEDS: Calcium Acetate 667 MG CAPSULE PO SCH ×3 (08:38→16:54)
[2018-03-22] MEDS: Insulin DETEMIR 100 UNIT/ML X5UNITS SQ SCH ×2 (08:38→20:41)
[2018-03-22] MEDS: Aspirin Enteric Coated 81 MG Tablet PO SCH (08:38)
[2018-03-22] MEDS: Lactobacillus 1 EACH CAP.SPRINK PO SCH (08:38)
[2018-03-22] MEDS: Furosemide 40 MG TABLET PO SCH ×3 (08:38→16:55)
[2018-03-22] MEDS: Cholecalciferol (D-3) 1,000 UNIT TABLET PO SCH (08:38)
[2018-03-22] MEDS: Gentamicin Oint 15 GM TUBE TP SCH (08:39)
[2018-03-22] MEDS: Insulin LISPRO 300 UNITS/3 ML VIAL SQ SCH ×3 (08:39→16:55)
[2018-03-22] MEDS: Silver Sulfadiazine 50 GM TUBE TP SCH (08:40)
[2018-03-22] MEDS: NIFEdipine XL (24 HR) 60 MG TAB.ER.24 PO SCH (08:45)
[2018-03-22] MEDS: Budesonide/Formoterol 160/4.5 1 PUFF INH IH SCH ×2 (08:47→20:16)
[2018-03-22] MEDS ORDERED: Gentamicin Oint 15 GM TUBE TP SCH (09:00)
--- NOTE | 2018-03-22 10:24 | Internal Med Progress Note ---
Hospitalist Progress Note - Encounter Date of Encounter: 03/22/18 Time of Encounter: 08:16 - Subjective Interval History: Patient seen and examined this morning. No acute overnight events. Complains of pain in foot reasonable controlled. Denies N/V/D. Has normal soft BM today. - Exam Vitals: Temp Pulse Resp BP Pulse Ox 98.3 F 71 11 157/74 97 03/22/18 05:07 03/22/18 05:07 03/22/18 05:07 03/22/18 05:07 03/22/18 05:07 Exam: Constitutional: Vitals as noted. Conversant. No Apparent Distress Obese ENT : Grossly normal hearing. Oropharyngeal exam unremarkable. Moist mucus membranes. Respiratory : Clear to auscultation bilaterally. No accessory muscle use, rales, rhonchi or wheezes Cardiovascular : RRR, +S1, +S2. no murmur, gallop, rubs. No chest wall tenderness GI/Abdominal : Soft, Non-tender, Non-distended, normal bowel sounds, soft, no peritoneal signs. no orgenomegaly or mass appreciated. no hernia. Musculoskeletal: no deformity noted. no edema or cyanosis. warm extremities, pulses palpable and symmetrical in UE/LE. no calf tenderness. Neurological: AO X3, CN II-XII grossly intact. Grossly normal motor exam. Decreased sensation on both legs bilaterally and somewhat on both hands. Skin: Dressing on Rt foot. . 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 MRI Negative for osteomyelitis but showed possible abscess - Had I&D right ankle , Excisional debridement and Biopsy on 03/21 - c/w Daptomycin and Zosyn. ID following - wound and blood culture NGTD - Podiatry and ID following. Diarrhea - Had 4-6 episoded on the day of dialysis - Patient says usually have diarrhea after dialysis sessions - Now resolved ESRD - Gets dialysis on Saturday. - Currently appears euvolemic - Continue dialysis per nephrology Diabetes - currently well controlled - Continue home Levemir along with sliding scale and Accu-Cheks HTN - occasional high reading - c/w losartan, metoprolol - IV prn labetalol for sbp>180 Hyperkalemia - On HD - c/w tele - Time Spent with Patient Total time spent is greater than 50% in coordination of care (as documented) at patient's floor/unit and/or counseling patient: Internal Medicine: Result - Labs CBC & Chem 7: 03/21/18 11:01 03/22/18 03:38 Labs: Short CBC 03/21/18 Range/Units 11:01 WBC 8.0 (4.3-11.1) K/mcL Hgb 11.4 L (11.5-15.4) g/dL Hct 36.1 (35.3-44.9) % Plt Count 214 (140-400) K/mcL Neutrophils # 5.0 (1.6-8.9) K/mcL BMP 03/21/18 03/22/18 10:10 03:38 Sodium 137 137 Potassium 5.2 H 5.2 H Chloride 101 101 Carbon Dioxide 22 L 23 BUN 30 H 39 H Creatinine 6.46 H 7.49 H Glucose 120 H 199 H Calcium 9.2 9.0 Consult Discharge Plan - Plan Referrals: Suresh Mendoza MD [Primary Care Provider] - __ (3) Diabetes Qualifiers: Diabetes mellitus type: type 2 Diabetes mellitus dean of admissions insulin use: with dean of admissions use Diabetes mellitus complication status: with neurologic complications Diabetes mellitus complication detail: with polyneuropathy Qualified Code(s): E11.42 - Type 2 diabetes mellitus with diabetic polyneuropathy; 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
[2018-03-22] MEDS: Metoprolol 100 MG TABLET PO SCH ×2 (14:06→20:41)
[2018-03-22] MEDS ORDERED: DAPTOmycin 500 MG in 0.9 % Sodium Chloride 100 ML IVPB SCH (18:00)
[2018-03-23] MEDS: Piperacillin/Tazobactam 3.375 GM in 0.9 % Sodium Chloride Mini Bag 100 ML IVPB SCH ×2 (01:37→12:37)
[2018-03-23 03:21] LABS: Basophils # 0.1 K/mcL (0.0-0.2); Basophils % 0.7 %; Eosinophils # 0.2 K/mcL (0.0-0.6); Hematocrit 32.3 % (35.3-44.9); Immature Granulocytes % 0.3 % (0-4); Lymphocytes # 1.8 K/mcL (0.6-4.6); Lymphocytes % 23.5 %; Mean Corpuscular Hemoglobin 28.8 pg (28.0-33.3); Mean Corpuscular Volume 93.1 fL (83.0-100.0); Mean Platelet Volume 9.9 fL (9.4-12.4); Monocytes # 0.6 K/mcL (0.0-1.3); Monocytes % 7.5 %; Platelet Count 183 K/mcL (140-400); Red Blood Count 3.47 M/mcL (3.82-4.97); Red Cell Distribution Width 15.7 % (11.5-14.5)
[2018-03-23 03:43] LABS: Calcium 8.8 mg/dL (8.6-10.3)
[2018-03-23] MEDS: Budesonide/Formoterol 160/4.5 1 PUFF INH IH SCH ×2 (09:49→20:00)
[2018-03-23] MEDS: Lactobacillus 1 EACH CAP.SPRINK PO SCH (10:49)
[2018-03-23] MEDS: Aspirin Enteric Coated 81 MG Tablet PO SCH (10:50)
[2018-03-23] MEDS: Metoprolol 100 MG TABLET PO SCH ×2 (10:50→20:37)
[2018-03-23] MEDS: Cholecalciferol (D-3) 1,000 UNIT TABLET PO SCH (10:50)
[2018-03-23] MEDS: NIFEdipine XL (24 HR) 60 MG TAB.ER.24 PO SCH (10:50)
[2018-03-23] MEDS: Calcium Acetate 667 MG CAPSULE PO SCH ×3 (10:51→17:21)
[2018-03-23] MEDS: Renal Vitamin 1 CAP CAPSULE PO SCH (10:51)
[2018-03-23] MEDS: Gentamicin Oint 15 GM TUBE TP SCH (10:52)
[2018-03-23] MEDS: Silver Sulfadiazine 50 GM TUBE TP SCH (10:52)
[2018-03-23] MEDS: Insulin LISPRO 300 UNITS/3 ML VIAL SQ SCH ×3 (10:53→17:21)
[2018-03-23] MEDS: Furosemide 40 MG TABLET PO SCH ×3 (10:57→17:21)
[2018-03-23] MEDS: Insulin DETEMIR 100 UNIT/ML X5UNITS SQ SCH ×2 (10:58→20:38)
--- NOTE | 2018-03-23 12:06 | Internal Med Progress Note ---
Hospitalist Progress Note - Encounter Date of Encounter: 03/23/18 Time of Encounter: 10:16 - Subjective Interval History: Patient seen and examined this morning. Pain in foot controlled. Denies N/V/D. Has normal BM. no diarrhea, fever, chills, N/V. - Exam Vitals: Temp Pulse Resp BP Pulse Ox 97.6 F 74 16 174/88 97 03/23/18 08:18 03/23/18 08:18 03/23/18 08:18 03/23/18 08:18 03/23/18 08:18 Exam: Constitutional: Vitals as noted. Conversant. No Apparent Distress Obese Respiratory : Clear to auscultation bilaterally. No accessory muscle use, rales, rhonchi or wheezes Cardiovascular : RRR, +S1, +S2. no murmur, gallop, rubs. No chest wall tenderness GI/Abdominal : Soft, Non-tender, Non-distended, normal bowel sounds, soft, no peritoneal signs. no orgenomegaly or mass appreciated. no hernia. Musculoskeletal: no deformity noted. no edema or cyanosis. warm extremities, pulses palpable and symmetrical in UE/LE. no calf tenderness. Neurological: AO X3, CN II-XII grossly intact. Grossly normal motor exam. Decreased sensation on both legs bilaterally and somewhat on both hands. 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 . 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 MRI Negative for osteomyelitis but showed possible abscess - Had I&D right ankle , Excisional debridement and Biopsy on 03/21 - c/w Daptomycin and Zosyn. ID following - wound and blood culture NGTD on prelim. Awaiting final report - Podiatry and ID following. Diarrhea - Had 4-6 episoded on the day of dialysis - Patient says usually have diarrhea after dialysis sessions - Now resolved. C.diff not tested. ESRD - Gets dialysis on Saturday. - Currently appears euvolemic - Continue dialysis per nephrology Diabetes - Increase Levemir to 15 BID. c/w sliding scale and Accu-Cheks HTN - occasional high readings. - c/w losartan, metoprolol. Increase nifedipine xl to 90. - IV prn labetalol for sbp>180 Hyperkalemia - resolved - c/w tele - Time Spent with Patient Total time spent is greater than 50% in coordination of care (as documented) at patient's floor/unit and/or counseling patient: Internal Medicine: Result - Labs CBC & Chem 7: 03/23/18 03:05 03/23/18 03:05 Labs: Short CBC 03/23/18 Range/Units 03:05 WBC 7.5 (4.3-11.1) K/mcL Hgb 10.0 L (11.5-15.4) g/dL Hct 32.3 L (35.3-44.9) % Plt Count 183 (140-400) K/mcL Neutrophils # 5.0 (1.6-8.9) K/mcL BMP 03/23/18 03:05 Sodium 138 Potassium 5.0 Chloride 99 Carbon Dioxide 28 BUN 30 H Creatinine 6.21 H Glucose 203 H Calcium 8.8 Consult Discharge Plan - Plan Referrals: Suresh Mendoza MD [Primary Care Provider] - (3) Diabetes Qualifiers: Diabetes mellitus type: type 2 Diabetes mellitus ad terminal makeup operator insulin use: with ad terminal makeup operator use Diabetes mellitus complication status: with neurologic complications Diabetes mellitus complication detail: with polyneuropathy Qualified Code(s): E11.42 - Type 2 diabetes mellitus with diabetic polyneuropathy; Z79.4 - residential (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
[2018-03-24] MEDS: Piperacillin/Tazobactam 3.375 GM in 0.9 % Sodium Chloride Mini Bag 100 ML IVPB SCH ×2 (01:38→13:50)
[2018-03-24 05:55] LABS: Basophils % 0.6 %; Eosinophils # 0.2 K/mcL (0.0-0.6); Eosinophils % 2.3 %; Hematocrit 32.6 % (35.3-44.9); Immature Granulocytes % 0.3 % (0-4); Lymphocytes # 1.8 K/mcL (0.6-4.6); Lymphocytes % 25.2 %; Mean Corpuscular HGB Conc 30.7 g/dL (31.6-35.5); Mean Corpuscular Hemoglobin 28.7 pg (28.0-33.3); Mean Corpuscular Volume 93.7 fL (83.0-100.0); Mean Platelet Volume 9.9 fL (9.4-12.4); Monocytes # 0.5 K/mcL (0.0-1.3); Monocytes % 7.7 %; Neutrophils # 4.5 K/mcL (1.6-8.9); Platelet Count 170 K/mcL (140-400); Red Blood Count 3.48 M/mcL (3.82-4.97); Red Cell Distribution Width 15.5 % (11.5-14.5); Segmented Neutrophils % 63.9 %
[2018-03-24 06:09] LABS: Potassium 5.7 mEq/L (3.5-5.1)
[2018-03-24] MEDS: Budesonide/Formoterol 160/4.5 1 PUFF INH IH SCH (07:28)
[2018-03-24] MEDS ORDERED: NIFEdipine XL (24 HR) 30 MG TAB.ER.24 PO SCH (09:00)
[2018-03-24] MEDS: Insulin LISPRO 300 UNITS/3 ML VIAL SQ SCH ×2 (09:11→12:24)
[2018-03-24] MEDS: Insulin DETEMIR 100 UNIT/ML X5UNITS SQ SCH (09:17)
[2018-03-24] MEDS: Lactobacillus 1 EACH CAP.SPRINK PO SCH (09:18)
[2018-03-24] MEDS: Furosemide 40 MG TABLET PO SCH ×2 (09:19→12:24)
[2018-03-24] MEDS: Cholecalciferol (D-3) 1,000 UNIT TABLET PO SCH (09:19)
[2018-03-24] MEDS: Aspirin Enteric Coated 81 MG Tablet PO SCH (09:19)
[2018-03-24] MEDS: Renal Vitamin 1 CAP CAPSULE PO SCH (09:20)
[2018-03-24] MEDS: Metoprolol 100 MG TABLET PO SCH (09:20)
[2018-03-24] MEDS: Calcium Acetate 667 MG CAPSULE PO SCH ×2 (09:24→12:24)
[2018-03-24] MEDS: Gentamicin Oint 15 GM TUBE TP SCH (11:13)
[2018-03-24] MEDS: Silver Sulfadiazine 50 GM TUBE TP SCH (11:14)
--- NOTE | 2018-03-24 12:45 | Podiatry Progress Note ---
Date of Encounter: 03/24/18 Time of Encounter: 11:15 - Assessment and Plan (1) Osteomyelitis Current Visit: Yes Status: Ruled-out Chronic right lateral malleolus ulcer Old dressing removed with minimal serosanguienous drainage. Placed Adaptic over right lateral malleolus, place Silvadene to right foot burn, place Adaptic over right #5 submetatarsal ulcer cover with 4 x 4 dry gauze and Kerlix. Dressing changes to be completed by nursing daily. I and D right lateral malleolus completed 03/21/18. Wound cultures and anaerobic cultures negative. ID following for ATB treatment. Qualifiers: Osteomyelitis type: unspecified type Osteomyelitis location: fibula Laterality: right Qualified Code(s): M86.9 - Osteomyelitis, unspecified (2) Diabetic ulcer of ankle Current Visit: Yes Status: Chronic Chronic right lateral malleolus ulcer. See above plan (3) Burn Current Visit: Yes Status: Resolved Healing right hallux, first submetatarsal, digits [address] Silvadene to wounds, cover with Adaptic, dry gauze, and Kerlix. Keep clean and dry Subjective Principal diagnosis: ESRD, diabetic ulcer of ankle Interval history: Patient sitting up in bed. Alert oriented 3. Denies any overnight complications. Objective - Vital Signs Vital Signs: Vital Signs Temp Pulse Resp BP Pulse Ox 03/24/18 10:30 97.6 F 75 16 177/88 97 03/24/18 07:50 98 F 66 16 164/86 100 03/24/18 07:29 18 97 03/24/18 06:17 98.0 F 75 16 191/104 96 03/24/18 04:00 97.7 F 65 15 149/73 97 03/23/18 20:01 18 98 03/23/18 18:07 98.3 F 75 15 172/90 99 03/23/18 17:20 98.4 F 75 14 172/82 96 Intake and Output 03/23/18 03/24/18 03/24/18 23:59 07:59 15:59 Intake Total 500 / 500 300 / 300 360 / 360 Output Total 0 / 0 0 / 0 Balance 500 / 500 300 / 300 360 / 360 Intake: IV Fluids 100 / 100 100 / 100 Zosyn 3.375 GM In 0.9 % Sodium 100 / 100 100 / 100 Chloride (Mini-Bag +) 100 ML @ 25 mls/hr IVPB Q12H [facility] Rx#: [id number] Oral 400 / 400 200 / 200 360 / 360 Output: Urine 0 / 0 0 / 0 Other: Meal Breakfast Percent of Meal Consumed 100% # Voids 2 2 # Bowel Movements 0 0 Weight 101.9 kg Blood Glucose* 169 211 Patient Weight 03/24/18 23:59 Weight 101.9 kg - Exam Exam: Constitiutional: Alert and oriented x 3. Vascular: 3/4 DP/PT bilaterally, CFT <3 sec to all digits, warm to warm from tibia to toes bilaterally Neurologic: Absent light touch and pinprick test, normal plantar response, Abnormal position sense dorsiflexion/plantar flexion. Dermatologic: healing second degree monteiro to right hallux, right 1st submetatarsal, and digits 2-4, right lateral malleolus venous ulcer. Fibrinous tissue to wound bed with pink and dusky edges. #5 submetatarsal with healing ulcer noted Musculoskeletal: 5/5 muscle strength to plantar flexion, dorsiflexion, inversion and eversion right foot, normal tone bilaterally. - Lab Result Diagrams: 03/24/18 05:20 03/24/18 05:20 Labs: Abnormal lab results RBC 3.48 M/mcL (3.82-4.97) L 03/24/18 05:20 Hgb 10.0 g/dL (11.5-15.4) L 03/24/18 05:20 Hct 32.6 % (35.3-44.9) L 03/24/18 05:20 MCHC 30.7 g/dL (31.6-35.5) L 03/24/18 05:20 RDW 15.5 % (11.5-14.5) H 03/24/18 05:20 ESR 79 mm/hr (0-15) H 03/18/18 20:20 Potassium 5.7 mEq/L (3.5-5.1) H 03/24/18 05:20 BUN 48 mg/dL (6-20) H 03/24/18 05:20 Creatinine 7.71 mg/dL (0.60-1.20) H 03/24/18 05:20 Est GFR ( Amer) 7 (> 60) L 03/24/18 05:20 Est GFR (Non-Af Amer) 5 (> 60) L 03/24/18 05:20 Glucose 114 mg/dL (70-105) H 03/24/18 05:20 POC Glucose 227 mg/dL (70-99) H 03/23/18 17:07 Phosphorus 6.0 mg/dL (2.7-4.5) H 03/20/18 04:34 C-Reactive Protein 18 mg/L (Less than 10) H 03/18/18 20:20 Microbiology, Last 48 Hours 03/21/18 11:20 Anaerobic Culture - Preliminary Right Ankle At this time, no anaerobic growth is present. The culture will be finalized after 5 days of incubation. 03/18/18 20:29 Blood Culture - Final Peripheral Venipuncture No growth. Final report. 03/18/18 20:37 Blood Culture - Final Peripheral Venipuncture No growth. Final report. 03/21/18 11:20 Wound Culture - Preliminary Right Ankle No growth. Consult Discharge Plan - Plan Additional Instructions: Follow in wound care with Dr. Winn. Please make appointment prior to D/C. Referrals: Suresh Mendoza MD [Primary Care Provider] - Tariq Winn DPM [Partnered Physician] -
--- NOTE | 2018-03-24 14:17 | Infectious Disease Progress No ---
Date of Encounter: 03/24/18 Time of Encounter: 12:15 - Assessment and Plan (1) Cellulitis Status: Acute Location: Right foot/ankle. Causative organism: Unclear. Previous wound cultures were positive for MSSA, Proteus, and Escherichia coli. Failed outpatient oral antibiotic therapy. ESR 79, CRP 18. No SIRS criteria noted. Blood cultures drawn 03/18/18 are no growth to date x 2 sets. MRI showed a shallow-appearing soft tissue ulcer/open wound to the right lateral ankle with curvilinear underlying focal fluid collection that may reflect an abscess. Podiatry consulted. Status post I & D 03/21/[address] Marquez. Operative note reviewed. No pus noted intra-op. Wound culture is no growth. Intra-op cultures no growth. Clinically improved. Currently on Dapto and Zosyn. Recommendations: - Wound care per the Podiatry team. - Continue daptomycin 6 mg/kg IV every 48 hours given on dialysis days only. Baseline CK level 73. Zocor on hold. - Continue Zosyn 3.375 g IV every 12 hours. Dose adjusted for HD status. - Duration of treatment depends on the clinical picture. Recommend a total of 14 days of treatment. Can switch to doxycycline 100mg PO BID and Levaquin 500mg PO Q48H to complete course of treatment. - Monitor labs and dose-adjust antibiotics for HD status. - Strict glucose control. Qualifiers: Site of cellulitis: extremity Site of cellulitis of extremity: lower extremity Laterality: right Qualified Code(s): L03.115 - Cellulitis of right lower limb (2) Ankle abscess Status: Ruled-out Location: Right ankle. Intra-op, serous fluid noted, but no abscess. (3) Osteomyelitis Status: Ruled-out Location: Right lateral ankle. Causative organism unclear, but previous wound culture grew E. coli, Proteus, and MSSA. X-ray of the right ankle showed no ty osseous destruction although there is mild thinning/loss of the cortical white line along the distal fibula which coul d indicate early osteomyelitis. MRI of the right ankle showed no evidence for osteomyelitis. Qualifiers: Osteomyelitis type: unspecified type Osteomyelitis location: fibula Laterality: right Qualified Code(s): M86.9 - Osteomyelitis, unspecified (4) Diabetic ulcer of ankle Status: Acute Location: Right lateral ankle. Secondary to previous pressure ulcer. Etiology of non-healing unclear. Podiatry consulted. (5) History of end stage renal disease Status: Acute Nephrology consulted and following. (6) Diabetes Status: Chronic Controlled. HgbA1C 6.6%. Management per the primary team. Qualifiers: Diabetes mellitus type: type 2 Diabetes mellitus oysterman insulin use: with oysterman use Diabetes mellitus complication status: with neurologic complications Diabetes mellitus complication detail: with polyneuropathy Qualified Code(s): E11.42 - Type 2 diabetes mellitus with diabetic polyneuropathy; Z79.4 - [facility] (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 (7) Diarrhea Status: Acute Resolved. Continue probiotics. Qualifiers: Diarrhea type: unspecified type Qualified Code(s): R19.7 - Diarrhea, unspecified - Subjective Interval history: Patient seen and examined. No acute events noted overnight. Patient reports improvement in her right foot and ankle pain, but report some intermittent right medial ankle pain. Denies any fevers or chills or rigors. Denies chest pain, shortness of breath, or cough. Denies nausea, vomiting, or constipation. States diarrhea has resolved. She denies any abdominal pain or urinary complaints. She denies any oral thrush or any skin lesions. Infect Dis PN-Objective Data - Labs CBC & Chem 7: 03/24/18 05:20 03/24/18 05:20 Labs: Laboratory Results - last 24 hr 03/23/18 03/23/18 03/23/18 08:14 12:05 17:07 WBC RBC Hgb Hct MCV MCH MCHC RDW Plt Count MPV Immature Gran % Seg Neutrophils % Lymphocytes % Monocytes % Eosinophils % Basophils % Neutrophils # Lymphocytes # Monocytes # Eosinophils # Basophils # Sodium Potassium Chloride Carbon Dioxide BUN Creatinine Est GFR ( Amer) Est GFR (Non-Af Amer) BUN/Creatinine Ratio Glucose POC Glucose 204 H 146 H 227 H Calculated Osmolality Calcium 03/24/18 03/24/18 05:20 05:20 WBC 7.0 RBC 3.48 L Hgb 10.0 L Hct 32.6 L MCV 93.7 MCH 28.7 MCHC 30.7 L RDW 15.5 H Plt Count 170 MPV 9.9 Immature Gran % 0.3 Seg Neutrophils % 63.9 Lymphocytes % 25.2 Monocytes % 7.7 Eosinophils % 2.3 Basophils % 0.6 Neutrophils # 4.5 Lymphocytes # 1.8 Monocytes # 0.5 Eosinophils # 0.2 Basophils # 0.0 Sodium 137 Potassium 5.7 H Chloride 100 Carbon Dioxide 26 BUN 48 H Creatinine 7.71 H Est GFR ( Amer) 7 L Est GFR (Non-Af Amer) 5 L BUN/Creatinine Ratio 6 Glucose 114 H POC Glucose Calculated Osmolality 297 Calcium 9.0 Cultures: Cultures 03/21/18 11:20 Wound Culture - Final Right Ankle No growth. 03/21/18 11:20 Anaerobic Culture - Preliminary Right Ankle At this time, no anaerobic growth is present. The culture will be finalized after 5 days of incubation. 03/18/18 20:29 Blood Culture - Final Peripheral Venipuncture No growth. Final report. 03/18/18 20:37 Blood Culture - Final Peripheral Venipuncture No growth. Final report. 03/19/18 12:10 Wound Culture - Final Right Ankle No growth. Exam - Constitutional Vitals: Temp Pulse Resp BP Pulse Ox 97.6 F 75 16 177/88 97 03/24/18 10:30 03/24/18 10:30 03/24/18 10:30 03/24/18 10:30 03/24/18 10:30 General appearance: cooperative, morbidly obese, no acute distress - Head Head exam: Present: atraumatic, normal inspection, normocephalic - Eye Eye exam: Present: EOMI, normal appearance, PERRL Pupils: Present: normal accommodation - ENT ENT exam: Present: mucous membranes moist - Neck Neck exam: Present: normal inspection - Respiratory Respiratory exam: Present: CTAB. Absent: rales, respiratory distress, rhonchi, wheezes - Cardiovascular Cardiovascular exam: Present: RRR, +S1, +S2 - GI/Abdominal GI/Abdominal exam: Present: distended (obese), normal bowel sounds, soft. Absent: tenderness - Extremities Exam Extremities exam: Absent: normal inspection (Right ankle ulceration with beefy red wound bed with no surrounding erythema, fluctuance, or drainage noted.) Additional comments: Ulcerations noted to the plantar aspect of toes #1-4 and MT #1 and #2 with scabbing noted. - Neurological Exam Neurological exam: Present: alert, oriented X3, no focal deficits - Psychiatric Psychiatric exam: Present: normal affect, normal mood - Skin Skin exam: Present: dry, intact, normal color, warm Consult Discharge Plan - Plan Instructions: Diabetic Foot Ulcers (DC) Additional Instructions: Follow in wound care with Dr. Winn. Please make appointment prior to D/C. Referrals: Tariq Winn DPM [Partnered Physician] - 04/02/18 1:45 pm (Will be seen in the [facility]ound [facility]. ) Prescriptions: RX: Doxycycline 100 mg PO BID 7 Days #14 capsule RX: levoFLOXacin [Levaquin] 500 mg PO Q48H 6 Days #3 tablet RX: NIFEdipine [Nifedipine ER] 90 mg PO DAILY 30 Days #30 tablet.er - Attending Attestation I examined this patient and my medical decision-making was reviewed with the Resident Physician. I agree with the documented findings, disposition and treatment plan as described except to the extent set forth below.
--- NOTE | 2018-03-24 14:19 | Discharge Summary ---
- NOTES TO OUTPATIENT PROVIDER Notes to Outpatient Provider: Patient to continue by mouth doxycycline and Levaquin to complete 14 days of antibiotics for her diabetic ulcer with abscess. Blood pressure difficult to control in hospital. Monitor for elevated blood pressure. Orders not resulted at time of discharge: Pending orders 03/21/18 09:55 Surgical Pathology [PTH] Routine 03/21/18 11:20 Culture,Anaerobic [RM] Routine Date of Encounter: 03/24/18 Time of Encounter: 12:18 - Discharge Diagnosis (1) History of end stage renal disease Priority: Secondary Status: Acute (2) Diabetic ulcer of ankle Priority: Primary Status: Acute (3) Diabetes Priority: Secondary Status: Chronic Qualifiers: Diabetes mellitus type: type 2 Diabetes mellitus long-term insulin use: with long-term use Diabetes mellitus complication status: with neurologic complications Diabetes mellitus complication detail: with polyneuropathy Qualified Code(s): E11.42 - Type 2 diabetes mellitus with diabetic polyneuropathy; Z79.4 - senior care (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 (4) Ankle abscess Priority: Primary Status: Ruled-out (5) Hyperkalemia Priority: Secondary Status: Chronic (6) Hypertension Priority: Secondary Status: Chronic Qualifiers: Hypertension type: essential hypertension Qualified Code(s): I10 - Essential (primary) hypertension Hospital course: Ms. Frederick is a 57 year old female PMH of ESRD on dialysis TTS, DM, HTN, Diastolic CHF, Asthma, HTN, HLD and CAD was admitted with right ankle pain was found to have right ankle abscess without acute osteomyelitis on MRI. Podiatry and infectious disease were consulted. Patient had I&D, excisional debridement and biopsy of right ankle wound on 03/21 by podiatry. Patient received empiric antibiotics with daptomycin and Zosyn. She could not tolerate vancomycin, as she felt sick when getting it ,however did not have any anaphylactic reaction. Patient received dialysis under the care of nephrology. Blood cultures and wound cultures have been negative. Infectious disease was consulted who recommended patient to be discharged with a 14 day course of antibiotic. Patient would be discharged on Levaquin and doxycycline to complete 7 day to finish 14 day course. Patient did have one day when she had diarrhea however which resolved the next day. Her blood pressure was difficult to control. Her nifedipine was increased while in hospital. Patient stable to be discharged to home however would need to follow for blood pressure. - Time Spent with Patient Total time spent providing and/or coordinating discharge services: Greater than 30 minutes (45) - Discharge Medications Prescriptions: Doxycycline 100 mg PO BID 7 Days #14 capsule Levofloxacin [Levaquin] 750 mg PO DAILY 1 Days #1 tablet levoFLOXacin [Levaquin] 500 mg PO Q48H 6 Days #3 tablet NIFEdipine [Nifedipine ER] 90 mg PO DAILY 30 Days #30 tablet.er Home Medications: Aspirin Enteric Coated [Aspirin EC] 81 mg PO DAILY 04/08/15 [History] Tizanidine HCl 2 mg PO TID PRN 06/27/16 [History] Ergocalciferol (VITAMIN D2) [Vitamin D2] 50,000 unit PO QTUTH 01/16/17 [History] Calcium Acetate [Phos-LO] 2,001 mg PO TID 02/25/17 [History] Insulin LISPRO [Humalog Kwikpen U-100] 5 unit SQ TID 02/25/17 [History] Renal Vitamin [Renal Caps Softgel] 1 mg PO DAILY 04/10/17 [History] Cholecalciferol (D-3) [Vitamin D] 2,000 unit PO DAILY 12/17/17 [History] Furosemide [Lasix] 80 mg PO TID 12/17/17 [History] Sertraline [Zoloft] 50 mg PO DAILY 12/17/17 [History] Albuterol Sulfate [Proair Hfa] 2 puff IH Q4H PRN #2 inh 12/20/17 [Rx] Multivitamin [One Daily Essential] 1 tab PO DAILY 01/09/18 [History] Simvastatin [Zocor] 40 mg PO HS 01/09/18 [History] Budesonide/Formoterol 160/4.5 [Symbicort 160/4.5] 2 puff IH BIDR 03/05/18 [History] Fluticasone Propionate Nasal [Flonase] 1 spr NS DAILY 03/05/18 [History] Insulin DETEMIR [Levemir Flextouch] 10 unit SQ BID 03/05/18 [History] Losartan Potassium [Cozaar] 100 mg PO DAILY 03/05/18 [History] Metoprolol [Lopressor] 100 mg PO BID 03/05/18 [History] Omeprazole [PriLOSEC] 20 mg PO DAILY 03/05/18 [History] Collagenase Oint [Santyl] 1 appl TP DAILY #2 tube 03/07/18 [Rx] Doxycycline 100 mg PO BID 7 Days #14 capsule 03/24/18 [Rx] Levofloxacin [Levaquin] 750 mg PO DAILY 1 Days #1 tablet 03/24/18 [Rx] NIFEdipine [Nifedipine ER] 90 mg PO DAILY 30 Days #30 tablet.er 03/24/18 [Rx] levoFLOXacin [Levaquin] 500 mg PO Q48H 6 Days #3 tablet 03/24/18 [Rx] Allergies/Adverse Reactions: Allergy/AdvReac Type Severity Reaction Status Date / Time vancomycin Allergy Intermediate Itching Verified 03/19/18 13:25 amlodipine Allergy See Verified 03/18/18 19:33 Comments Amoxicillin [From Augmentin] Allergy Itching Verified 03/18/18 19:33 clavulanic acid Allergy Itching Verified 03/18/18 19:33 [From Augmentin] pregabalin [From Lyrica] Allergy Swelling Verified 03/18/18 19:33 of Lip/Tongue/Throat CAROLYN Inhibitors AdvReac Palpitation Verified 03/18/18 19:33 s amitriptyline AdvReac feels drunk Verified 03/18/18 19:33 fenofibrate [From Tricor] AdvReac See Verified 03/18/18 19:33 Comments gabapentin [From Neurontin] AdvReac make me Verified 03/18/18 19:33 sick at my stomach Date of admission: 03/22/18 16:25 Primary care physician: Suresh Mendoza MD Consults: 03/18/18 20:20 Consult to Podiatry [CONS] Stat Consulting Provider: Podiatry [facility] Reason for Consult: Lateral malleolus ulcer Call Completed: Yes 03/19/18 10:23 Consult to Nephrology [CONS] Routine Consulting Provider: [facility]IE[facility]/WILL/KIRSTEN Reason for Consult: dialysis management Call Completed: Yes 03/19/18 10:34 Consult to Infectious Diseases [CONS] Routine Consulting Provider: Infectious Disease [place] Reason for Consult: possible osteomyelitis Call Completed: Yes 03/20/18 07:30 Consult to Dialysis [CONS] ONCE 03/22/18 04:45 Consult to Dialysis [CONS] ONCE Discharging clinician: Myrtle Viramontes - Constitutional Vitals: Temp Pulse Resp BP Pulse Ox 97.6 F 75 16 177/88 97 03/24/18 10:30 03/24/18 10:30 03/24/18 10:30 03/24/18 10:30 03/24/18 10:30 General appearance: Present: no acute distress Exam: Constitutional: Vitals as noted. Conversant. No Apparent Distress Obese Respiratory : Clear to auscultation bilaterally. No accessory muscle use, rales, rhonchi or wheezes Cardiovascular : RRR, +S1, +S2. no murmur, gallop, rubs. No chest wall tenderness GI/Abdominal : Soft, Non-tender, Non-distended, normal bowel sounds, soft, no peritoneal signs. no orgenomegaly or mass appreciated. no hernia. Musculoskeletal: no deformity noted. no edema or cyanosis. warm extremities, pulses palpable and symmetrical in UE/LE. no calf tenderness. Neurological: AO X3, CN II-XII grossly intact. Grossly normal motor exam. Decreased sensation on both legs bilaterally and somewhat on both hands. Skin: Dressing on Rt foot. . - Patient Status Disposition: Home, Self-Care Condition: Fair - Discharge Instructions Follow Up With: Suresh Mendoza MD [Primary Care Provider] - Tariq Winn DPM [Partnered Physician] - Additional Instructions: Follow in wound care with Dr. Winn. Please make appointment prior to D/C. - Diet and Activity Diet: diabetic diet
[2018-03-24 14:26] VITALS: BP 157/68
--- NOTE | 2018-03-24 15:14 | Nephrology Progress Note ---
Date of Encounter: 03/24/18 Time of Encounter: 15:13 - Assessment and Plan (1) ESRD (end stage renal disease) on dialysis Current Visit: No Status: Chronic HD TTS at [facility]. Plan for HD tomorrow, if she is still here. Avoid nephrotoxins and renal dose. (2) Hypertension Current Visit: No Status: Chronic Continue current antihypertensive Rx Qualifiers: Hypertension type: essential hypertension Qualified Code(s): I10 - Essential (primary) hypertension (3) Hyperphosphatemia Current Visit: No Status: Chronic Chronic: phos binders to continue. (4) Anemia in chronic illness Current Visit: No Status: Chronic Anemia of CKD stage V on HD: goal Hgb is 10-11. Hgb is 10 today. (5) Hyperkalemia Current Visit: No Status: Acute Is 5.7 today. Will correct with HD tomorrow. (6) Diabetic ulcer of ankle Current Visit: Yes Status: Acute Appreciate podiatry s/p surgery during this admission. (7) Peripheral edema Current Visit: Yes Status: Acute Will improve with HD. Subjective Principal diagnosis: ESRD, diabetic ulcer of ankle Interval history: Pt seen and examined, doing well. Denies SOB. Objective - Vital Signs Vital signs: Vital Signs Temp Pulse Resp BP Pulse Ox 03/24/18 14:24 98.2 F 66 16 157/68 98 03/24/18 10:30 97.6 F 75 16 177/88 97 03/24/18 07:50 98 F 66 16 164/86 100 03/24/18 07:29 18 97 03/24/18 06:17 98.0 F 75 16 191/104 96 03/24/18 04:00 97.7 F 65 15 149/73 97 03/23/18 20:01 18 98 03/23/18 18:07 98.3 F 75 15 172/90 99 03/23/18 17:20 98.4 F 75 14 172/82 96 Intake and Output 03/23/18 03/24/18 03/24/18 23:59 07:59 15:59 Intake Total 500 / 500 300 / 300 480 / 480 Output Total 0 / 0 0 / 0 Balance 500 / 500 300 / 300 480 / 480 Intake: IV Fluids 100 / 100 100 / 100 Zosyn 3.375 GM In 0.9 % Sodium 100 / 100 100 / 100 Chloride (Mini-Bag +) 100 ML @ 25 mls/hr IVPB Q12H [facility] Rx#: [id number] Oral 400 / 400 200 / 200 480 / 480 Output: Urine 0 / 0 0 / 0 Other: Meal Lunch Percent of Meal Consumed 25% # Voids 2 2 1 # Bowel Movements 0 0 Weight 101.9 kg Blood Glucose* 169 211 Patient Weight 03/24/18 23:59 Weight 101.9 kg - General Appearance General appearance: Present: well-developed, well-nourished EENT: Present: ATNC, hearing intact, vision intact Neck: Present: supple Respiratory: Present: clear, wheezing Cardiology: Present: edema, normal S1, normal S2 Dialysis Vascular Access: Arteriovenous Fistula thrill: Yes bruit: Yes Gastrointestinal: Present: normoactive bowel sounds, no tenderness, no guarding Integumentary: Present: no rash, warm and dry Neurologic: Present: alert and oriented x3 Musculoskeletal: Present: no deformities Psychiatric: Present: mood/affect appropriate - Lab 03/24/18 05:20 03/24/18 05:20 Most recent lab results Calcium 9.0 mg/dL (8.6-10.3) 03/24/18 05:20 Phosphorus 6.0 mg/dL (2.7-4.5) H 03/20/18 04:34 Consult Discharge Plan - Plan Additional Instructions: Follow in wound care with Dr. Winn. Please make appointment prior to D/C. Referrals: Suresh Mendoza MD [Primary Care Provider] - Tariq Winn DPM [Partnered Physician] - 04/02/18 1:45 pm (Will be seen in the [facility]. ) Prescriptions: Doxycycline 100 mg PO BID 7 Days #14 capsule Levofloxacin [Levaquin] 750 mg PO DAILY 1 Days #1 tablet levoFLOXacin [Levaquin] 500 mg PO Q48H 6 Days #3 tablet NIFEdipine [Nifedipine ER] 90 mg PO DAILY 30 Days #30 tablet.er
== END 2018-03-24 17:43 | disposition home or self-care (01) | DRG 364 ==
LOC: 3ANU 19:26 → EMEROOARM 19:26 → SUATTDRO 21:36 → 3ANU 23:37
PROVIDERS: ADMIT Internal Medicine; ATTEND Internal Medicine